=== PATIENT | female | born 1950 | race Caucasian/White ===

== ENCOUNTER → 2020-06-19 13:50 | Outpatient (REF) | payer MEDICARE, OTHER, SELFPAY ==
--- NOTE | 2020-06-19 14:00 | CA_ITS ---
Transthoracic Echocardiogram Patient (Last, First, Middle): Lucita Parekh A Gender: Female Date of : 1950 Age: 69 Procedure Date: 06/19/2020 Procedure Type: Transthoracic Echocardiogram Location: OP Height: 170.18 cm Weight: 104.33 kg BSA: 2.15 m2 Heart Rate: bpm BP: 128 / 88 mmHg Specification Writer: Referring MD: Brandt Correia MD Symptoms: I49.0 A-FIB Conclusions: - Normal left ventricular size, thickness, and systolic function. - E/E prime ratio is between 8 and 15 consistent with indeterminate filling pressures. - Normal right ventricular cavity size and systolic function. - There is mild dilatation of the ascending aorta. - No significant valvular or pericardial pathology. Findings Left Ventricle Normal left ventricular size, thickness, and systolic function. The visually estimated ejection fraction is between 55-60%. There is no evidence of regional wall motion abnormalities. Abnormal diastolic function is noted. Spectral Doppler is indicative of an impaired relaxation filling pattern. E/E prime ratio is between 8 and 15 consistent with indeterminate filling pressures. Right Ventricle Normal right ventricular cavity size and systolic function. Atria Both atria are normal in size. Aortic Valve Normal aortic valve structure and function. There is no aortic valve stenosis. There is no aortic valve regurgitation. Mitral Valve Normal mitral valve structure and function. There is no mitral valve regurgitation. There is no mitral valve stenosis. Pulmonic Valve The pulmonic valve is likely normal. Tricuspid Valve Normal tricuspid valve structure and function. There is trace tricuspid valve regurgitation. Normal right atrial pressure. There is no evidence of pulmonary hypertension. Great Vessels There is mild dilatation of the ascending aorta. The visualized portions of the pulmonary artery and branches are normal. Venous The inferior vena cava is normal in size and collapses greater than 50% with inspiration. Pericardium/Pleural There is no evidence of pericardial effusion. Prior Study Comparison No significant change compared to prior study dated: 02/11/2017. Measurements 2D Linear Measurements RVIDd: 2.97 RVIDd Index: 1.38 IVSd: 0.73 0.6-0.9/0.6-1.0 cm LVIDd: 5.23 3.9-5.3/4.2-5.9 cm LVIDd Index: 2.43 2.4-3.2/2.2-3.1 cm/m2 LVIDs: 3.46 2.0-3.6 cm LVPWd: 1.03 0.7-1.1 cm Ao Root: 3.40 2.1-3.5 cm LA Diam: 4.00 2.7-3.8/3.0-4.0 cm LAIDs Index: 1.86 1.5-2.3 cm/m2 LV Mass: 205.96 67-162/88-224 g LV Mass Index: 95.79 43-95/49-115 g/m2 LVOT Diam: 2.20 3.0+(-)1.3 cm 2D Systolic Function EF 4C: 44.00 >55% EF 2C: 58.00 >55% Mitral Valve MV Pk E: 0.51 MV PK A: 0.77 MV Decel Time: 327.00 E/A: 0.70 E'Lateral: 6.85 E'Medial: 5.44 E/E' Med: 9.40 E/E' Lat: 7.50 Aortic Valve AoV Pk Jac: 1.23 AoV Mn Jac: 0.91 AoV VTI: 0.26 AoV Pk Grad: 6.00 Aov Mn Grad: 4.00 MICH Cont.VTI: 2.44 LVOT LVOT Pk Jac: 0.90 LVOT Mn Jac: 0.59 LVOT VTI: 0.17 LVOT Pk Grad: 3.00 LVOT Mn Grad: 2.00 LVOT Diam: 2.20 LVOT Area: 3.80 Diastolic Function MV Pk E: 0.51 MV Pk A: 0.77 E/A: 0.70 E'Medial: 5.44 E/E' Med: 9.40 E' Laterial: 6.85 E/E' Lat: 7.50 Tricuspid Valve TR Pk Jac: 2.28 TR Pk Grad: 21.00 RA Press: 3.00 RVSP: 24.00 Great Vessels Aorta Ao Root-2D: 3.40 2.0-3.7 cm Ao Asc: 3.50 2.1-3.4 cm Ao Arch: 2.50 Updated in Other Vendor System with Status of Final Aung Lacy MD electronically signed on 06/21/2020 8:53:16 PM with status of Final
== END ==
LOC: HO.CARD 13:50
PROVIDERS: PCP Internal Medicine; Visit Provider Internal Medicine Cardiovascular Disease
DX: I48.0 Paroxysmal atrial fibrillation (principal)
CPT/HCPCS: 93306

== ENCOUNTER → 2020-08-05 10:10 | Outpatient (BNVA) | payer MEDICARE, OTHER, SELFPAY | PROVIDERS: PCP Internal Medicine; Referring Provider Internal Medicine; Visit Provider Nurse Practitioner Family | DX: I48.0 Paroxysmal atrial fibrillation (principal); R07.9 Chest pain, unspecified | CPT/HCPCS: 93005; 99212 ==

== ENCOUNTER → 2020-08-11 08:06 | Outpatient (REF) | payer MEDICARE, OTHER, SELFPAY ==
--- NOTE | 2020-08-11 | NM_ITS ---
Myocardial perfusion study Indication: Chest pain to evaluate for myocardial ischemia Technique: The patient was brought in for a Lexiscan perfusion study on 08/11/2020. Patient performed low-level exercise and was injected 0.4 mg of Lexiscan intravenously. Within a minute of injection, 45 mCi of sestamibi was given intravenously. Images were obtained using the SPECT gamma camera interlaced with the gating device. Images were obtained in supine position. Resting perfusion study was performed on 08/12/2020. Patient was administered 35 mCi of sestamibi intravenously at rest. Images were then obtained in supine position. Images obtained with and without CT attenuation. Total DLP 97 mGy-cm. Images were processed with the software and compared side to side in short axis, horizontal long axis and vertical long axis views. Findings: The stress perfusion study showed non attenuated images are suboptimal. As mildly reduced uptake in the anterior wall of the LV myocardium. Remainder of the LV myocardium is normally perfused. Attenuation corrected images show normal uptake of radiotracer in all segments of LV myocardium. The gated study shows normal LV systolic function with calculated LVEF of greater than 690%. LV cavity is normal size. The gated study shows normal systolic wall thickening and contraction of segments. Resting study shows attenuation corrected images show mildly reduced uptake in the apex of the LV myocardium.. Gating at rest reveals normal systolic wall motion with ejection fraction at 59%. The findings are consistent with likely normal myocardial perfusion. NM/NM giovanni perf SPECT rest & str Impression: 1. Myocardial perfusion imaging study shows likely normal myocardial perfusion 2. Gated LVEF is 59% 3. Transient ischemic dilatation not present EKG is nondiagnostic for ischemia
--- NOTE | 2020-08-11 08:15 | CA_ITS ---
Acquisition Time: 2020-08-11 08:19:15 Total Exercise Time: 00:02:00 Test Indications: Chest Pain Medications: CLONAZAPAM METOPROLOL HYDROXAZINE MELOXICAM GABAPENTIN PANTOPRAZOLE Protocol: LEXISCAN Max HR: 100 BPM 66% of Pred: 151 BPM Max BP: 118/072 mmHG Max Work Load: 1.0 METS Pharmacological stress test using Lexiscan while sitting and kicking her feet. Pt tolerated well, denies any anginal sx. EKG with isolated PVC, non-diagnostic for ischemia. Nuclear images to follow. Normotensive response to test. Test reviewed with Dr. Stock. Referred By: Ana Maria Zuñiga Overread By: Neelam Pichardo
== END ==
LOC: HO.CARD 08:06
PROVIDERS: PCP Internal Medicine; Visit Provider Nurse Practitioner Family
DX: R07.9 Chest pain, unspecified (principal); I48.0 Paroxysmal atrial fibrillation
CPT/HCPCS: 78452; 93017; A9500; J0280; J2785

== ENCOUNTER → 2020-09-09 11:49 | Outpatient (BNVA) | payer MEDICARE, OTHER, SELFPAY | PROVIDERS: PCP Internal Medicine; Visit Provider Nurse Practitioner Family | DX: Z13.89 Encounter for screening for other disorder (principal) | CPT/HCPCS: Q3014 ==

== ENCOUNTER 2020-11-19 17:00 | Outpatient (RCR) | payer MEDICARE, OTHER, SELFPAY | END 2020-11-27 10:32 | disposition other institution (70) | LOC: HO.PT 17:00 | PROVIDERS: PCP Internal Medicine; Visit Provider Physician Assistant | DX: M25.561 Pain in right knee (principal); M25.562 Pain in left knee | CPT/HCPCS: 97110; 97112; 97162 ==

== ENCOUNTER → 2020-12-16 12:44 | Outpatient (BNVA) | payer MEDICARE, OTHER, SELFPAY | PROVIDERS: PCP Internal Medicine; Visit Provider Nurse Practitioner Family | DX: R07.9 Chest pain, unspecified (principal); I48.0 Paroxysmal atrial fibrillation; F43.9 Reaction to severe stress, unspecified; Z79.899 Other long term (current) drug therapy | CPT/HCPCS: 99212 ==

== ENCOUNTER 2021-02-09 16:51 | Emergency (ER) | payer MEDICARE, OTHER, SELFPAY ==
--- NOTE | ~2021-02-09 | XR_ITS ---
EXAMINATION: XR RIBS, LEFT CLINICAL INFORMATION: Fall and injury COMPARISON: 03/22/2017 TECHNIQUE: Frontal view the chest and 3 views of the left ribs were obtained. FINDINGS: Lungs are hypoexpanded. There is mild thickening along the left lateral pleural space. On one oblique view there is a suggestion of a very subtle nondisplaced fracture of the lateral left fourth ribs as well as a possible subtle irregularity along the anterolateral left third rib. These appeared more normal on the prior study. Subtle nondisplaced left-sided rib fractures would be suspected. XR/XR ribs LT min 3V w CXR1V IMPRESSION: Subtle nondisplaced fractures of the left third and fourth ribs
[2021-02-09 16:55] VITALS: BP 124/68; PULSE 86; RESP 18; TEMP 36.8; O2SAT 100; BMI 37.6
--- NOTE | 2021-02-09 18:16 | ED_ITS ---
HPI - Fall General Chief Complaint: Fall Stated Complaint: fall Time Seen by Provider: 02/09/21 17:23 Source: patient Mode of arrival: ambulatory Limitations: no limitations History of Present Illness HPI Narrative: 70 year-old female here after a fall with left-sided chest discomfort. The patient tells me that she has had multiple falls last 3 weeks at home because she has 2 bad knees and they give out on her at times causing her to fall. She denies any head injury or loss of consciousness. She is not on any anticoagulation. She tells me that she has intermittent left-sided chest discomfort which is worsened with moving and deep breathing and she struck it when she fell on 1 of the occasions. Also complaining of depression.. Is the primary caregiver to her at home was recovering from COVID. No SI or HI.. Related Data Home Medications Medication Instructions Recorded Confirmed clonazepam 2 mg tablet 2 mg PO BID PRN 07/14/20 12/16/20 dextroamphetamine-amphetamine 15 1 tab PO BID 07/14/20 12/16/20 mg tablet gabapentin 300 mg capsule mg PO 07/14/20 12/16/20 hydroxyzine pamoate 25 mg capsule mg PO 07/14/20 12/16/20 meloxicam 7.5 mg tablet 7.5 mg PO DAILY 07/14/20 12/16/20 metoprolol succinate 50 mg 50 mg PO DAILY 07/14/20 12/16/20 tablet,extended release 24 hr pantoprazole 40 mg tablet,delayed 40 mg PO DAILY 07/14/20 12/16/20 release prazosin 2 mg capsule 2 mg PO BEDTIME 07/14/20 12/16/20 venlafaxine 75 mg capsule,extended 75 mg PO DAILY 07/14/20 12/16/20 release 24 hr Previous Rx's Medication Instructions Recorded lidocaine [Lidoderm] 1 patch TOPICAL DAILY #15 ea 02/09/21 oxycodone 5 mg PO Q6H PRN #10 tab 02/09/21 Allergies Allergy/AdvReac Type Severity Reaction Status Date / Time No Known Allergies Allergy Unverified 05/21/20 14:53 [No Known Allergies*] Review of Systems Review of Systems: Yes all other systems are reviewed and are negative Constitutional: Constitutional: Reports no additional constitutional complaints, Denies body ache(s), Denies chills, Denies fever(s), Denies headache(s) and Denies weakness Eyes: Eyes: Reports no additional eye complaints and Denies change in vision ENT: Reports system reviewed and no additional complaints, except as documented, Denies dizziness, Denies headache(s), Denies nasal congestion, Denies nasal discharge and Denies neck pain Cardiovascular: Cardiovascular: Reports no additional cardiovascular complaints, Reports chest pain, Denies leg edema and Denies dyspnea Respiratory: Respiratory: Reports no additional respiratory complaints, Denies cough and Denies dyspnea Gastrointestinal: Gastrointestinal: Reports no additional gastrointestinal complaints, Denies abdominal pain, Denies diarrhea, Denies nausea and Denies vomiting Genitourinary: Genitourinary: Reports no additional female genitourinary complaints and Denies urinary incontinence Musculoskeletal: Musculoskeletal: Reports no additional musculoskeletal complaints, Denies back pain, Denies arthralgias, Denies joint swelling, Denies neck pain, Denies numbness and Denies tingling Integumentary/Breasts: Skin/Breast: Reports system reviewed and no additional complaints, except as docu and Denies rash Neurologic: Reports system reviewed and no additional complaints, except as documented, Denies Abnormal speech present, Denies dizziness, Denies headache(s), Denies numbness, Denies tingling and Denies weakness PMFSH Past Medical History Attestation statement: The following information was validated with the patient. Source: old records reviewed and nursing notes reviewed Medical History Paroxysmal atrial fibrillation Surgical History Hx of appendectomy Hx of hysterectomy Family History Family History Father No problems noted. Mother No problems noted. Social History Social History Advance Directives: No Advance Directives Information Provided: No Physical Exam Vital Signs: Vital Signs: Last Vital Signs Temp 98.2 F 02/09/21 16:55 Pulse 86 02/09/21 16:55 Resp 18 02/09/21 16:55 BP 124/68 02/09/21 16:55 Pulse Ox 100 02/09/21 16:55 Body Mass Index 37.6 Const: General: cooperative, healthy appearing, comfortable and no acute distress Orientation/consciousness: patient oriented x3 Limitations: no l imitations HENMT: Head: Yes normal to inspection Ears: hearing grossly normal bilaterally General nose exam: Normal external nose present Face and sinus: Yes normal facial exam Mouth: Normal oral and palatal mucosa present Throat: Yes posterior oropharynx normal Eyes: General: appearance normal, both eyes and all related structures Pupils: Equal, round and reactive pupils present Neck: Neck: Yes normal visual inspection Chest: Other: Left-sided chest discomfort worsened with palpation. There is no obvious e ecchymosis or crepitus. Chest palpation & inspection: normal inspection of the chest and tenderness Resp: Effort & Inspection: normal respiratory effort Auscultation: clear to auscultation bilaterally Cardio: Rate: regular rate Rhythm: regular rhythm Peripheral pulses: Peripheral pulses 2+ throughout GI: Inspection: Yes normal to inspection Palpation (GI): Soft to palpation and nontender Auscultation: normal bowel sounds Back/Spine/Pelvis: Thoracic/Lumbar Spine: thoracic and lumbar spine normal to inspection Skin: General skin exam: no rashes or lesions noted Neuro: General: patient oriented x3, no focal motor deficits and normal sensation to monofilament Cranial nerves: Yes Equal, round and reactive pupils present Cognition (Neuro): normal cognition Speech: No Abnormal speech present Gait exam (Neuro): Normal gait present Motor exam (neuro): 5/5 motor strength present throughout Extrem: General: Yes normal to inspection Course Course Course Narrative: 70-year-old female here with left-sided chest discomfort after a fall. Patient tells me she has multiple falls which are secondary to her knees giving out. No head injury or loss of consciousness. No anticoagulation. Also complaining of depression. Will check rib x-ray and have a care team come and discussed with the patient. 2019-rib x-ray shows 2 nondisplaced rib fractures. Patient is pending care team input. 2029-patient was seen by care team and cleared for discharge home. No suicidal homicidal ideations. She does have a outpatient provider and therapy in place. Patient was given incentive spirometer by respiratory therapy. She was medicated for pain with improvement of symptoms. I did offer for case management to come and see the patient but she tells me that she knows she has bilateral knee pain from her arthritis. She tells me she has broken her primary care doctor and plans to restart physical therapy. She does not feel like she needs to speak to case management or have any placement done. Reviewed worrisome signs and symptoms and when to return to the emergency department. Comfortable discharge home. MDM - Fall MDM Narrative Medical decision making narrative: Contusion, fracture Medical Records Attestation: I reviewed the patient's medical records. Lab Data Attestation: I reviewed the patient's lab results. Imaging Data rib xray: Attestation: I personally reviewed and interpreted this imaging study as follows: Radiologist's impression: EXAMINATION: XR RIBS, LEFT CLINICAL INFORMATION: Fall and injury COMPARISON: 03/22/2017 TECHNIQUE: Frontal view the chest and 3 views of the left ribs were obtained. FINDINGS: Lungs are hypoexpanded. There is mild thickening along the left lateral pleural space. On one oblique view there is a suggestion of a very subtle nondisplaced fracture of the lateral left fourth ribs as well as a possible subtle irregularity along the anterolateral left third rib. These appeared more normal on the prior study. Subtle nondisplaced left-sided rib fractures would be suspected. XR/XR ribs LT min 3V w CXR1V IMPRESSION: Subtle nondisplaced fractures of the left third and fourth ribs Discharge Plan Discharge Clinical Impression: Closed rib fracture, Depression Patient Disposition: Home, Self-Care Instructions: Rib Fracture (ED), Depression (ED) Additional Instructions: You have 2 small rib fractures Ice the area Follow-up with primary care doctor Prescriptions: New oxycodone 5 mg tablet 5 mg PO Q6H PRN (Reason: pain) Qty: 10 RF: 0 lidocaine [Lidoderm] 5 % adhesive patch,medicated 1 patch topical DAILY Qty: 15 RF: 0 No Action hydroxyzine pamoate 25 mg capsule PO RF: 0 prazosin 2 mg capsule 2 mg PO BEDTIME RF: 0 clonazepam 2 mg tablet 2 mg PO BID PRNRF: 0 venlafaxine 75 mg capsule,extended release 24hr 75 mg PO DAILY RF: 0 gabapentin 300 mg capsule PO RF: 0 meloxicam 7.5 mg tablet 7.5 mg PO DAILY RF: 0 pantoprazole 40 mg tablet,delayed release (DR/EC) 40 mg PO DAILY RF: 0 dextroamphetamine-amphetamine 15 mg tablet 1 tab PO BID RF: 0 metoprolol succinate 50 mg tablet extended release 24 hr 50 mg PO DAILY RF: 0 Referrals: Physician,None [Primary Care Provider] - 2 days
--- NOTE | 2021-02-09 19:04 | PC.NURSE ---
pt has been in low fowlers position speaking in full clear sentences with no accessory muscle use noted. pt reports tederness to her L brest and states it is tender. no other dcap-btls noted. pt initally declined aldo medications but later requests. pt stattes she is the primary caregiver of her and states she does not feel she can care for him anymore, pt is distressed by this admission. socail work eval has been ordered
[2021-02-09] MEDS: oxyCODONE HCl Immed Release 5 MG TABLET PO (20:59)
[2021-02-09] MEDS: Ketorolac Tromethamine 60 MG/2 ML VIAL IM (21:00)
[2021-02-09 21:14] VITALS: BP 158/70; PULSE 63; RESP 18; TEMP 36.8; O2SAT 97
--- NOTE | 2021-02-09 21:54 | MHC.CARE ---
Addendum entered by Lani Lobo LCSW 02/09/21 22:12: [place] noting-- denied SI several times, declined referrals and resources due to being well resourced with regards to her mental health at this time. Original Note: CARE team consult requested for 70 year old female who was brought to ED via private vehicle secondary to a fall at home. During the visit, pt expressed that she has been struggling with depressed mood in the context of stress related to cohabiting with her partner of 25 years, who has experienced significant medical challenges and changes in his emotional/behavioral presentation since he was hospitalized with covid-19 last Spring. Pt shared that she is beyond compassion fatigue at this point, noting that she has arrived to the point of not caring, describing herself as being angry and a [id number] machine (referencing her increased use of the word in conversation, pt spelled the word as opposed to saying it). Pt shared that her partner was compassionate and caring prior to his covid diagnosis and treatment, which resulted in pt being admitted to ICU for 5 weeks, spending 3 of those weeks on a ventilator, and pt believes that he was traumatized by this experience, as well as another medical trauma event that occurred shortly after, which may be a contributing factor to the reported changes that have left pt feeling that she has nothing left to give for him. Pt reported that a nurse practitioner from [employer] visited the home yesterday and made recommendations that her partner be referred for a PT/OT eval and a neurology consultation/evaluation, which pt doesn't feel that he will follow up or be compliant with. 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 Five years ago, pt reported that she bought a condo and moved out of their home, thus ending their romantic relationship. This however resulted in a tremendous downswing with pt's mood and overall functioning, becoming increasingly isolated, leading to increased alcohol use and ultimately a significant suicide attempt, which was followed by one year of intensive mental health treatment including psych admissions, ECT, TMS, and PHP. Pt has been in treatment with outpatient providers and the DBT program through [facility] for the past 3 years and feels that she is well supported in that aspect. Pt expressed that she has felt socially isolated over the past year, as her closest friends disconnected from pt after her partner was diagnosed with covid, likely out of the now-irrational fear of the infection, of which little was known at that time. She has also felt that her family has been distant, sharing that her sister suffered a significant mental health episode just prior to the covid pandemic. Resulting from today's fall, pt fractured a number of her ribs and will need several weeks of recovery time. Pt shared that she had a goal of buying and preparing a teardrop camper/trailer by this June so that she would be able to do the traveling she intended to do after half-way, however is left feeling that her present medical challenges have compromised this. CARE team consulted briefly with Case Management re: what was discussed with pt and a brief explanation of the current concerns with regards to pt's ability to care for herself and her partner while she is in medical recovery.
== END 2021-02-09 21:28 | disposition home or self-care (01) ==
PROVIDERS: Emergency Provider Internal Medicine
DX: S22.42XA Multiple fractures of ribs, left side, initial encounter for closed fracture (principal); W17.89XA Other fall from one level to another, initial encounter; F32.9 Major depressive disorder, single episode, unspecified; I48.0 Paroxysmal atrial fibrillation; Z91.81 History of falling; Y93.89 Activity, other specified; Y92.019 Unspecified place in single-family (private) house as the place of occurrence of the external cause; Y99.9 Unspecified external cause status
CPT/HCPCS: 71101; 96372; 99284; J1885

== ENCOUNTER 2021-02-12 13:57 | Outpatient (RCR) | payer MEDICARE, OTHER, SELFPAY | END 2021-07-07 15:25 | disposition home or self-care (01) | LOC: HO.PT 13:57 | PROVIDERS: PCP Internal Medicine; Visit Provider Physician Assistant | DX: M25.562 Pain in left knee (principal); M25.561 Pain in right knee | CPT/HCPCS: 97110; 97116; 97162 ==

== ENCOUNTER 2021-02-25 16:58 | Emergency (ER) | payer MEDICARE, OTHER, SELFPAY ==
--- NOTE | ~2021-02-25 | XR_ITS ---
EXAMINATION: LEFT WRIST CLINICAL INFORMATION: Injury. Pain. COMPARISON: None TECHNIQUE: 4 views FINDINGS: There is osteopenia. Suspect the presence of a nondisplaced fracture of the metadiaphysis of the distal radius. Subtle cortical irregularity seen on lateral view. Faint radiolucent fracture line seen on the coned down navicular view through the metadiaphysis of the distal radius. There is no dislocation. There is marked degenerative change between the navicular and multangular bones of the wrist. XR/XR wrist LT w scaphoid IMPRESSION: Suspect nondisplaced transverse fracture of the distal radius at the metadiaphysis. CT would be helpful for further evaluation.
[2021-02-25 17:09] VITALS: BP 127/75; BP 165/100; PULSE 66; RESP 20; TEMP 36.3; O2SAT 96; O2SAT 98; BMI 38.0
[2021-02-25 17:20] VITALS: BP 127/75; PULSE 66; RESP 20; TEMP 36.3; O2SAT 96
--- NOTE | 2021-02-25 17:21 | ED.FALL ---
HPI - Fall General Chief Complaint: Fall Stated Complaint: left wrist pain Time Seen by Provider: 02/25/21 17:21 History of Present Illness HPI Narrative: Patient complains of left wrist pain after falling backwards while gardening, no fainting no syncope no feeling faint no numbness weakness or tingling no head injury no headache no neck pain no back pain Related Data Home Medications Medication Instructions Recorded Confirmed clonazepam 2 mg tablet 2 mg PO BID PRN 07/14/20 12/16/20 dextroamphetamine-amphetamine 15 1 tab PO BID 07/14/20 12/16/20 mg tablet gabapentin 300 mg capsule mg PO 07/14/20 12/16/20 hydroxyzine pamoate 25 mg capsule mg PO 07/14/20 12/16/20 meloxicam 7.5 mg tablet 7.5 mg PO DAILY 07/14/20 12/16/20 metoprolol succinate 50 mg 50 mg PO DAILY 07/14/20 12/16/20 tablet,extended release 24 hr pantoprazole 40 mg tablet,delayed 40 mg PO DAILY 07/14/20 12/16/20 release prazosin 2 mg capsule 2 mg PO BEDTIME 07/14/20 12/16/20 venlafaxine 75 mg capsule,extended 75 mg PO DAILY 07/14/20 12/16/20 release 24 hr Previous Rx's Medication Instructions Recorded lidocaine [Lidoderm] 1 patch TOPICAL DAILY #15 ea 02/09/21 oxycodone 5 mg PO Q6H PRN #10 tab 02/09/21 hydrocodone-acetaminophen 1 tab PO Q6H PRN #10 tab 02/25/21 Allergies Allergy/AdvReac Type Severity Reaction Status Date / Time No Known Allergies Allergy Verified 03/04/21 08:50 [No Known Allergies*] Review of Systems Review of Systems: positive for left wrist pain Negatives are no dizziness no weakness no fainting no feeling pain no neck pain no back pain no numbness weakness or tingling no other extremity pains Yes all other systems are reviewed and are negative PMF Past Medical History Source: nursing notes reviewed Medical History Paroxysmal atrial fibrillation Surgical History Hx of appendectomy Hx of hysterectomy Family History Family History Father No problems noted. Mother No problems noted. Social History Social History (Updated 03/04/21 @ 08:52 by Ilya Herrera) Patient Tobacco Use Status: Never used Tobacco Current occupational status: retired Current occupation: rt handed Physical Exam Vital Signs: Vital Signs: Last Vital Signs Temp 97.4 F 02/25/21 17:20 Pulse 66 02/25/21 17:20 Resp 20 02/25/21 17:20 BP 127/75 02/25/21 17:20 Pulse Ox 96 02/25/21 17:20 Body Mass Index 38.0 general appearance no acute distress Head is normocephalic atraumatic Neck is supple and nontender Respiratory no distress Extremities the left wrist had tenderness and swelling no obvious deformity, there was pain with flexion and extension and it was neurovascularly intact distal with normal tendon function in the fingers on both extension and flexion, there was no open wound Course Course Course Narrative: x-ray showed a nondisplaced fracture of the distal radius and the tech applied a volar splint neurovascularly intact afterwards and patient will follow with orthopedics Discharge Plan Discharge Clinical Impression: Fracture of left wrist Patient Disposition: Home, Self-Care Additional Instructions: X-ray showed a nondisplaced wrist fracture and we applied a splint Wear the splint Use either Tylenol or Vicodin for pain killer, Vicodin does contain Tylenol Follow with orthopedist next week Return any concerns Prescriptions: New hydrocodone-acetaminophen 5-325 mg tablet 1 tab PO Q6H PRN (Reason: pain) Qty: 10 RF: 0 No Action oxycodone 5 mg tablet 5 mg PO Q6H PRN (Reason: pain) Qty: 10 RF: 0 lidocaine [Lidoderm] 5 % adhesive patch,medicated 1 patch topical DAILY Qty: 15 RF: 0 hydroxyzine pamoate 25 mg capsule PO RF: 0 prazosin 2 mg capsule 2 mg PO BEDTIME RF: 0 clonazepam 2 mg tablet 2 mg PO BID PRNRF: 0 venlafaxine 75 mg capsule,extended release 24hr 75 mg PO DAILY RF: 0 gabapentin 300 mg capsule PO RF: 0 meloxicam 7.5 mg tablet 7.5 mg PO DAILY RF: 0 pantoprazole 40 mg tablet,delayed release (DR/EC) 40 mg PO DAILY RF: 0 dextroamphetamine-amphetamine 15 mg tablet 1 tab PO BID RF: 0 metoprolol succinate 50 mg tablet extended release 24 hr 50 mg PO DAILY RF: 0 Referrals: Mayi Randhawa MD [Physician] - 2 days (Left wrist fracture) Interventions: ED Discharge Assessment Last Done: 02/25/21 20:48 Discharge Date/Time: 02/25/21 20:49
--- NOTE | 2021-02-25 17:25 | PC.NURSE ---
Addendum entered by Kristin Carranza RN 02/25/21 17:50: +[facility] Original Note: Pt alert. oriented, vss. Pt states while gardening this afternoon she tripped and lost her balance causing her to fall. She states she used her left arm to break her fall ending up landing on her L wrist. She denies hitting head, no LOC, dizziness, or lightheadedness. Pt reports she is supposed to use walker to ambulate but was not using it at the time of fall. An iv line was established by ems, 50mcg of Fentanyl given via iv and L arm stabilized. Pt awaiting xray, no apparent distress
[2021-02-25] MEDS: Morphine Sulfate 4 MG/ML CARTRIDGE IVPUSH (17:42)
--- NOTE | 2021-02-25 19:13 | PC.NURSE ---
This PCT placed a thumb Spica splint on the patients left forearm, patient tolerated well
== END 2021-02-25 20:49 | disposition home or self-care (01) ==
PROVIDERS: Emergency Provider Emergency Medicine; PCP Internal Medicine
DX: S52.502A Unspecified fracture of the lower end of left radius, initial encounter for closed fracture (principal); W18.30XA Fall on same level, unspecified, initial encounter; Y93.H2 Activity, gardening and landscaping; Y92.89 Other specified places as the place of occurrence of the external cause; Y99.9 Unspecified external cause status
CPT/HCPCS: 29125; 73110; 96374; 99284; J2270

== ENCOUNTER 2021-03-04 08:01 | Outpatient (REF) | payer MEDICARE, OTHER, SELFPAY ==
--- NOTE | ~2021-03-04 | XR_ITS ---
EXAMINATION: XR WRIST, LEFT CLINICAL INFORMATION: Left wrist pain. COMPARISON: Radiographs dated 02/25/2021 and 03/22/2017. TECHNIQUE: PA, lateral, and oblique views of the left wrist. FINDINGS: There is bony demineralization. Fine bony detail is limited laterally secondary to the application of a splint. A tiny fracture is again suspected at the dorsal aspect of the distal left radial metaphysis on the lateral view. There is no dislocation. Again, there are is degenerative change of the triscaphe and first carpometacarpal carpometacarpal joints. No soft tissue gas or foreign body is seen. XR/XR wrist LT min 3V IMPRESSION: A small fracture fragment is again suspected at the dorsal aspect of the distal left radius on the lateral view comment is stable alignment.
== END 2021-03-04 08:02 | disposition home or self-care (01) ==
LOC: HO.XRAY 08:01
PROVIDERS: PCP Internal Medicine; Visit Provider Physician Assistant
DX: S52.502A Unspecified fracture of the lower end of left radius, initial encounter for closed fracture (principal)
CPT/HCPCS: 25600; 73110; 99202

== ENCOUNTER 2021-03-25 08:07 | Outpatient (REF) | payer MEDICARE, OTHER, SELFPAY ==
--- NOTE | ~2021-03-25 | XR_ITS ---
EXAMINATION: XR WRIST, LEFT XR WRIST, RIGHT CLINICAL INFORMATION: Pain COMPARISON: None TECHNIQUE: 3 views of each wrist FINDINGS: Left wrist: Osteopenia. No fracture or dislocation. The carpal rows are well aligned. Moderate degenerative changes of the triscaphe joint with joint space narrowing and sclerosis. Mild degenerative change of the first carpometacarpal joint with narrowing and osteophyte. The soft tissues are unremarkable. Right wrist: No fracture or dislocation. The carpal rows are well aligned. Severe degenerative change of the triscaphe joint with narrowing, sclerosis, and osteophyte formation. Mild degenerative change of the first carpometacarpal joint with osteophyte formation. Subchondral cyst formation in the lunate. The soft tissues are unremarkable. XR/XR wrist RT min 3V IMPRESSION: Degenerative changes of both wrists, greatest at the triscaphe joint.
--- NOTE | ~2021-03-25 | XR_ITS ---
EXAMINATION: XR WRIST, LEFT XR WRIST, RIGHT CLINICAL INFORMATION: Pain COMPARISON: None TECHNIQUE: 3 views of each wrist FINDINGS: Left wrist: Osteopenia. No fracture or dislocation. The carpal rows are well aligned. Moderate degenerative changes of the triscaphe joint with joint space narrowing and sclerosis. Mild degenerative change of the first carpometacarpal joint with narrowing and osteophyte. The soft tissues are unremarkable. Right wrist: No fracture or dislocation. The carpal rows are well aligned. Severe degenerative change of the triscaphe joint with narrowing, sclerosis, and osteophyte formation. Mild degenerative change of the first carpometacarpal joint with osteophyte formation. Subchondral cyst formation in the lunate. The soft tissues are unremarkable. XR/XR wrist LT min 3V IMPRESSION: Degenerative changes of both wrists, greatest at the triscaphe joint.
== END 2021-03-25 08:08 | disposition home or self-care (01) ==
LOC: HO.HOSX 08:07
PROVIDERS: Visit Provider Physician Assistant
DX: S52.502D Unspecified fracture of the lower end of left radius, subsequent encounter for closed fracture with routine healing (principal); M25.532 Pain in left wrist; M25.531 Pain in right wrist; M18.11 Unilateral primary osteoarthritis of first carpometacarpal joint, right hand; M18.12 Unilateral primary osteoarthritis of first carpometacarpal joint, left hand
CPT/HCPCS: 29085; 73110; 99212

== ENCOUNTER 2021-04-15 05:56 | Outpatient (REF) | payer MEDICARE, OTHER, SELFPAY ==
--- NOTE | ~2021-04-15 | XR_ITS ---
EXAMINATION: XR WRIST, LEFT CLINICAL INFORMATION: Left wrist pain. COMPARISON: Left wrist radiographs dated 03/25/2021. TECHNIQUE: PA, lateral, and oblique views of the left wrist. FINDINGS: No acute fracture or dislocation. Osteopenia is redemonstrated. Joint space narrowing with subchondral sclerosis and marginal osteophytes at the triscaphe, 1st carpometacarpal, and 1st metacarpophalangeal joints. Findings are similar when compared to the prior radiographs. No new osseous erosion. No abnormal soft tissue calcification. XR/XR wrist LT min 3V IMPRESSION: Degenerative arthritis redemonstrated at the triscaphe, 1st carpal metacarpal, and 1st metacarpophalangeal joints, similar when compared to the prior examination.
== END 2021-04-15 05:57 | disposition home or self-care (01) ==
LOC: HO.HOSX 05:56
PROVIDERS: Visit Provider Physician Assistant
DX: M18.12 Unilateral primary osteoarthritis of first carpometacarpal joint, left hand (principal); S52.502D Unspecified fracture of the lower end of left radius, subsequent encounter for closed fracture with routine healing
CPT/HCPCS: 73110; 99212

== ENCOUNTER 2021-05-27 08:50 | Outpatient (REF) | payer MEDICARE, OTHER, SELFPAY ==
--- NOTE | ~2021-05-27 | XR_ITS ---
EXAMINATION: XR WRIST, LEFT CLINICAL INFORMATION: Pain in left wrist COMPARISON: Radiographs of the left wrist 04/15/2021 TECHNIQUE: PA, lateral, and oblique views of the left wrist. FINDINGS: The bones are diffusely osteopenic. Redemonstration of degenerative changes of the triscaphe, first carpometacarpal and first metacarpophalangeal joints which are overall similar to the prior study. No new acute bony abnormality is identified. There is no fracture. There is questionable minimal edema of the soft tissues adjacent to the ulnar styloid, though this is likely projectional. Soft tissues are otherwise unremarkable. XR/XR wrist LT min 3V IMPRESSION: Essentially stable appearance of degenerative arthritic changes of the left wrist without acute interval change.
== END 2021-05-27 08:51 | disposition home or self-care (01) ==
LOC: HO.HOSX 08:50
PROVIDERS: Visit Provider Physician Assistant
DX: S52.502D Unspecified fracture of the lower end of left radius, subsequent encounter for closed fracture with routine healing (principal); M65.4 Radial styloid tenosynovitis [de Quervain]
CPT/HCPCS: 20550; 73110; 99212; J1020

== ENCOUNTER 2021-07-08 14:43 | Outpatient (REF) | payer MEDICARE, OTHER, SELFPAY ==
--- NOTE | ~2021-07-08 | XR_ITS ---
EXAMINATION: XR WRIST, LEFT CLINICAL INFORMATION: Fracture. COMPARISON: 05/27/2021 TECHNIQUE: Four views of the left wrist. FINDINGS: Osteopenia. The carpal rows are well aligned. Severe arthritic changes at the triscaphe joint with narrowing and sclerosis. Moderate degenerative change of the first carpometacarpal joint. The soft tissues appear unremarkable. XR/XR wrist LT min 3V IMPRESSION: Similar appearance to prior with severe arthritic changes at the triscaphe joint.
== END 2021-07-08 14:44 | disposition home or self-care (01) ==
LOC: HO.HOSX 14:43
PROVIDERS: Visit Provider Physician Assistant
DX: M65.4 Radial styloid tenosynovitis [de Quervain] (principal); S52.502D Unspecified fracture of the lower end of left radius, subsequent encounter for closed fracture with routine healing
CPT/HCPCS: 73110; 99212

== ENCOUNTER 2021-07-19 11:50 | Outpatient (REF) | payer MEDICARE, OTHER, SELFPAY ==
--- NOTE | ~2021-07-19 | XR_ITS ---
EXAMINATION: KNEE X-RAY CLINICAL INFORMATION: Pain COMPARISON: None TECHNIQUE: Standing AP, lateral and sunrise view of both knees FINDINGS: Right: Bone alignment is normal. No fracture or dislocation is seen. There is tricompartment arthritis. There is a small joint effusion. Left: Bone alignment is normal. No fracture or dislocation is seen. There is arthritis at the medial femoral tibial and patellofemoral joints. There is no joint effusion. XR/XR knee standing BI IMPRESSION: Bilateral arthritis, right greater than left.
--- NOTE | ~2021-07-19 | XR_ITS ---
EXAMINATION: KNEE X-RAY CLINICAL INFORMATION: Pain COMPARISON: None TECHNIQUE: Standing AP, lateral and sunrise view of both knees FINDINGS: Right: Bone alignment is normal. No fracture or dislocation is seen. There is tricompartment arthritis. There is a small joint effusion. Left: Bone alignment is normal. No fracture or dislocation is seen. There is arthritis at the medial femoral tibial and patellofemoral joints. There is no joint effusion. XR/XR knee RT 2V IMPRESSION: Bilateral arthritis, right greater than left.
--- NOTE | ~2021-07-19 | XR_ITS ---
EXAMINATION: KNEE X-RAY CLINICAL INFORMATION: Pain COMPARISON: None TECHNIQUE: Standing AP, lateral and sunrise view of both knees FINDINGS: Right: Bone alignment is normal. No fracture or dislocation is seen. There is tricompartment arthritis. There is a small joint effusion. Left: Bone alignment is normal. No fracture or dislocation is seen. There is arthritis at the medial femoral tibial and patellofemoral joints. There is no joint effusion. XR/XR knee LT 2V IMPRESSION: Bilateral arthritis, right greater than left.
== END 2021-07-19 11:51 | disposition home or self-care (01) ==
LOC: HO.HOSX 11:50
PROVIDERS: Visit Provider Orthopaedic Surgery
DX: M17.11 Unilateral primary osteoarthritis, right knee (principal)
CPT/HCPCS: 73560; 73565; 99202

== ENCOUNTER → 2021-08-09 13:53 | Outpatient (BNVA) | payer MEDICARE, OTHER, SELFPAY | PROVIDERS: PCP Internal Medicine; Referring Provider Internal Medicine; Visit Provider Internal Medicine Cardiovascular Disease | DX: Z01.810 Encounter for preprocedural cardiovascular examination (principal); I48.0 Paroxysmal atrial fibrillation | CPT/HCPCS: 93005; 99212 ==

== ENCOUNTER → 2021-10-05 10:54 | Outpatient (BNVA) | payer MEDICARE, OTHER, SELFPAY | PROVIDERS: Visit Provider Orthopaedic Surgery | DX: Z13.89 Encounter for screening for other disorder (principal) ==

== ENCOUNTER 2021-10-05 12:27 | Outpatient (REF) | payer MEDICARE, OTHER, SELFPAY ==
[2021-10-05 13:51] LABS: MANUAL DIFF FLAG NO
[2021-10-05 13:57] LABS: Basophils Absolute Auto 0.1 X10*3/uL (0.0-0.2); Basophils Percent Auto 0.5 % (0-2); Eosinophils Absolute Auto 0.2 X10*3/uL (0.0-0.4); Eosinophils Percent Auto 1.6 % (0-4); Hematocrit 43.7 % (37.0-47.0); Hemoglobin 13.9 g/dl (12.0-16.0); Imm Gran Abs Auto 0.05 X10*3/uL (0.00-0.03); Imm Gran Pct Auto 0.5 % (0.0-0.4); Lymphocytes Absolute Auto 3.3 X10*3/uL (1.2-4.9); Lymphocytes Percent Auto 33.9 % (20-40); Mean Corpuscular HGB Conc 31.8 g/dl (31.0-35.0); Mean Corpuscular Hemoglobin 29.8 pg (27.0-33.0); Mean Corpuscular Volume 93.8 fL (80.0-98.0); Mean Platelet Volume 9.9 fL (9.4-12.3); Monocytes Absolute Auto 0.8 X10*3/uL (0.1-1.2); Monocytes Percent Auto 8.5 % (2-11); Neutrophils Absolute Auto 5.4 x10*3/uL (2.0-8.3); Platelet Count 311 X10*3/uL (160-400); Red Blood Count 4.66 X10*6/uL (4.20-5.50); Red Cell Distribution Width 12.4 % (11.0-16.0); White Blood Count 9.8 X10*3/uL (4.8-10.8)
[2021-10-05 14:22] LABS: Anion Gap 9 (12-20); Blood Urea Nitrogen 26 mg/dL (9-16); Calcium 9.8 mg/dL (8.4-10.2); Carbon Dioxide 30 mmol/L (22-29); Chloride 106 mmol/L (96-108); Estimated Glomerular Filt Rate > 60; Glucose Random 86 mg/dL (60-115); Potassium 4.7 mmol/L (3.3-5.1); Sodium 140 mmol/L (135-145)
== END 2021-10-05 12:28 | disposition home or self-care (01) ==
LOC: HO.10HDL 12:27
PROVIDERS: Visit Provider Orthopaedic Surgery
DX: Z01.812 Encounter for preprocedural laboratory examination (principal)
CPT/HCPCS: 36415; 80048; 85025

== ENCOUNTER → 2021-10-07 09:14 | Outpatient (REF) | payer MEDICARE, OTHER, SELFPAY ==
--- NOTE | ~2021-10-07 | NM_ITS ---
Myocardial perfusion study Indication: Chest pain to evaluate for myocardial ischemia Technique: The patient was brought in for a Lexiscan perfusion study on 10/07/2021. Patient performed low-level exercise and was injected 0.4 mg of Lexiscan intravenously. Within a minute of injection, 40 mCi of sestamibi was given intravenously. Images were obtained using the SPECT gamma camera interlaced with the gating device. Images were obtained in supine position. Resting perfusion study was performed on 10/11/2021. Patient was administered 40 mCi of sestamibi intravenously at rest. Images were then obtained in supine position. Images obtained with and without CT attenuation. Total DLP 153 mGy-cm. Images were processed with the software and compared side to side in short axis, horizontal long axis and vertical long axis views. Findings: There was interference due to intense subdiaphragmatic uptake both on rest and stress perfusion study The stress perfusion study showed normal uptake of radiotracer in all segments of LV myocardium both on attenuated as well as non attenuated images. The gated study shows normal LV systolic function with visually estimated LVEF of greater than 60%. LV cavity is normal in size. The gated study shows normal systolic wall thickening and contraction of segments. Resting study shows normal uptake of radiotracer in all segments of LV myocardium on non attenuated images. Gating at rest reveals normal systolic wall motion with visually estimated ejection fraction at greater than 60%. The findings are consistent with normal myocardial perfusion. NM/NM giovanni perf SPECT rest & str Impression: 1. Myocardial perfusion imaging study shows normal myocardial perfusion 2. Gated LVEF is greater than 60% 3. Transient ischemic dilatation not present EKG is nondiagnostic for ischemia
--- NOTE | 2021-10-07 09:24 | CA_ITS ---
Acquisition Time: 2021-10-07 09:30:20 Total Exercise Time: 00:02:00 Test Indications: ABN EKG, AFIB Medications: SEE CHART Protocol: LEXISCAN Max HR: 096 BPM 64% of Pred: 150 BPM Max BP: 130/078 mmHG Max Work Load: 1.0 METS Pharmacological stress test with Lexiscan injection, while sitting and moving right arm, without anginal symptoms, without arrythmia, with normotensive response to injection, with nondiagnostic EKG for ischemia. In recovery she reported Lightheadedness that was treated with Aminophylline 75mg IV to reverse Lexiscan with resolution of symptom. Nuclear images pending. Test reviewed with Dr Stock. Referred By: Brandt Correia Overread By: GÉNESIS EATON
== END ==
LOC: HO.CARD 09:14
PROVIDERS: Visit Provider Internal Medicine Cardiovascular Disease
DX: R07.9 Chest pain, unspecified (principal)
CPT/HCPCS: 78452; 93017; A9500; J0280; J2785

== ENCOUNTER → 2021-10-28 11:13 | Outpatient (BNVA) | payer MEDICARE, OTHER, SELFPAY | PROVIDERS: Visit Provider Physician Assistant | DX: Z01.818 Encounter for other preprocedural examination (principal); M17.11 Unilateral primary osteoarthritis, right knee | CPT/HCPCS: 99212 ==

== ENCOUNTER 2021-11-01 14:00 | Outpatient (RCR) | payer MEDICARE, OTHER, SELFPAY ==
--- NOTE | 2021-10-13 15:30 | MHC.PT.EP ---
[facility] [place] Office [place] Office [place] Office [address] Nicki Ibarra [address] [phone] F: [phone] F: [phone] F: [phone] F: [phone] Physical Therapy Plan of Care Date of Evaluation: Date of Surgery: n/a Diagnosis: Prehab for TKA Assessment: Patient is a 70 year old female presenting to PT for prehab prior to R TKA scheduled for November 02, 2021. She presents today with impairments in pain, knee ROM, knee strength, and hip strength. Pt's current occupation is none, with baseline physical activities including ADLs, ambulation, and stair negotiation. Pt expresses detention goal of preparing for surgery, and is motivated to work towards this in PT. Clinical presentation today is most consistent with signs and sx associated with R knee OA and pt will benefit from skilled PT to address the following problems and impairments noted upon evaluation: pain, knee ROM, knee strength, and hip strength. These problems limit the patient with the following functional activities: ADLs, ambulation, and stair negotiation. The prescribed treatment plan of care is medically necessary. Co-morbidities of afib and psych history (pt often crying during evaluation without provocative factor, pt also tangential at times and needing redirection during evaluation) were identified and taken into considerations of plan of care. Pt was educated on HEP, role of PT, prognosis, POC, heel propping for after surgery. Extensive discussion on pain and rehab process - pt became tearful again stating she needs a assistant men's soccer coach after surgery and she doesn't have one so is unsure how she will know when to do her exercises. Further discussion had regarding responsibility and accountability when it comes to completing exercises and her role in her own rehab and pt with some hesitation with this idea. Frequency and Duration: The patient will be seen 2 x week x 3 weeks Short Term Goals: Pt will demonstrate compliance with HEP in 2 sessions. Pt will demonstrate proper use of cane and sequencing when ambulating in 2 sessions. [employer] Goals: Pt will demonstrate improved knee strength by 1/3 MMT in 3 weeks to maximize post op outcomes. Pt will demonstrate improved hip strength by 1/3 MMT for improved lumbopelvic stability in 3 weeks. Treatment Plan: Modalities to reduce pain, spasms and effusion. Manual therapy to restore motion and function. Therapeutic exercise to improve strength and flexibility. Neuromuscular re-education for posture and balance. Therapeutic activities to return to functional activities of daily living. Electronically signed by: Sparkle Henson, PT, DPT, ATC Please sign and return to therapist. Thank you for your referral.
--- NOTE | 2021-11-01 14:58 | MHC.PT.DC ---
[facility] [place] Office [place] Office [place] Office [address] Nicki Ibarra 140 [facility] [phone] F: [phone] F: [phone] F: [phone] F: [phone] Physical Therapy Discharge Report Diagnosis: Prehab for TKA Date of Surgery: n/a Date of Evaluation: 10/13/21 Date of Discharge: 11/01/21 Treatments to Date: 5 Cancellations to Date: 1 No Shows to Date: 0 Discharge Status: Discharge Summary: Pt is scheduled for R TKA tomorrow. She has been attending prehab and working on strengthening to maximize post op outcomes. She states she is compliant with her exercises at home most of the time. She has made some gains in knee strength but still is demonstrating impaired hip strength. At this time skilled PT is no longer indicated as she is scheduled for a TKA tomorrow. She will benefit from skilled PT after her surgery. Electronically signed by: Sparkle Henson, PT, DPT, ATC Please sign and return to therapist. Thank you for your referral.
== END 2021-11-01 14:58 | disposition home or self-care (01) ==
LOC: HO.PTCHIC 14:00
PROVIDERS: PCP Internal Medicine; Visit Provider Orthopaedic Surgery
DX: M17.11 Unilateral primary osteoarthritis, right knee (principal)
CPT/HCPCS: 97110; 97161; 97162

== ENCOUNTER 2021-11-02 07:20 | Inpatient (IN) | payer MEDICARE, OTHER, SELFPAY ==
[2021-10-21 12:05] VITALS: BP 131/76; PULSE 91; RESP 16; O2SAT 96; BMI 39.9
--- NOTE | 2021-10-21 12:37 | HO.ANESPROP2 ---
Documented by User: Lani Waldrop NP 11/01/21 09:19 HPI - Anesthesia Eval Consult details Narrative: 70yo F for Left Knee Replacement Total Cardiac optimized per Dr Bren Harrell, no anticoag PMFSH Active Problems Active Problems: All Active Problems (Updated 10/21/21 @ 12:26 by Yasmin Hill, BELÉN) Chest pain (Acute) Stress at home (Acute) Nondisplaced fracture of distal end of radius (Acute) Nondisplaced fracture of distal end of radius with routine healing (Acute) Arthritis of carpometacarpal (CMC) joint of right thumb (Acute) Arthritis of carpometacarpal (CMC) joint of left thumb (Acute) De Quervain's disease (radial styloid tenosynovitis) (Acute) Arthritis of right knee (Acute) Paroxysmal atrial fibrillation (Acute) Past Medical History Medical History Abnormal gait Hx of basal cell carcinoma IBS (irritable bowel syndrome) Lumbar spinal stenosis Major depression, recurrent, chronic Osteoarthritis Osteopenia Paroxysmal atrial fibrillation Pure hypercholesterolemia Severe major depression without psychotic features Vitamin D deficiency Family History Family History Father No problems noted. Mother No problems noted. Family history of problems with anesthesia: No Surgical History Surgical History History of esophagogastroduodenoscopy (EGD) Hx of appendectomy Hx of breast biopsy Hx of colonoscopy Hx of hysterectomy History of Problems with Anesthesia: No Social History Social History Are you a primary patient care associate to a significant other at home: No Do you presently have visiting nurse or other home services: Yes ([employer] 4 hours per week) Patient Tobacco Use Status: Former Tobacco user Quit Date: 2000 Tobacco use type: Cigarette Use of substances other than those prescribed or required for medical reasons: Yes Substance Use Frequency: Weekly Have you been hit, kicked, punched, or otherwise hurt by someone within the past year? If so, by whom?: No Spiritual Healthcare Practices: none Anglican Healthcare Practices: none Cultural Healthcare Practices: none Are you DNR?: No Advance Directives: Yes Advance Directives Information Provided: Yes Advance Directives on File: Yes Advance Directives Date on File: 09/19/16 Recently lost weight without trying: No Nutrition Risks: No Nutritional Risk Current occupational status: retired Current occupation: rt handed Narrative Narrative: No recent illness No CP or SOB but activity limited to pain Meds Allergies Allergy/AdvReac Type Severity Reaction Status Date / Time No Known Allergies Allergy Verified 10/28/21 11:18 [No Known Allergies*] Home Medications Medication Instructions Recorded Confirmed Last Taken Type clonazepam 2 mg tablet 2 mg PO BID PRN 07/14/20 10/21/21 Unknown History gabapentin 300 mg capsule 300 mg PO BEDTIME 07/14/20 10/21/21 Unknown History metoprolol succinate 50 mg 50 mg PO DAILY 07/14/20 10/21/21 Unknown History tablet,extended release 24 hr pantoprazole 40 mg tablet,delayed 40 mg PO DAILY 07/14/20 10/21/21 Unknown History release prazosin 2 mg capsule 2 mg PO BEDTIME 07/14/20 10/21/21 Unknown History venlafaxine 75 mg capsule,extended 75 mg PO DAILY 07/14/20 10/21/21 Unknown History release 24 hr dextroamphetamine-amphetamine 15 1 tab PO DAILY tab 08/09/21 10/21/21 Unknown History mg tablet hydroxyzine pamoate 25 mg capsule 25 mg PO DAILY cap 08/09/21 10/21/21 Unknown History solifenacin 5 mg tablet 5 mg PO DAILY 08/09/21 10/21/21 Unknown History acetaminophen 500 mg tablet 1,000 mg PO TID PRN 10/21/21 10/21/21 Unknown History Exam Exam Date and Time: October 21, 2021 1237 Height,Weight and Vital Signs: Height 5 ft 6 in Weight 112.3 kg Last Vital Signs Pulse 91 10/21/21 12:05 Resp 16 10/21/21 12:05 BP 131/76 10/21/21 12:05 Pulse Ox 96 10/21/21 12:05 Pertinent Lab Results Pertinent Lab Results: Laboratory Tests 10/05/21 10/05/21 12:35 12:35 WBC 9.8 Hgb 13.9 Hct 43.7 Plt Count 311 Sodium 140 Potassium 4.7 Chloride 106 Carbon Dioxide 30 H BUN 26 H Creatinine 0.68 Narrative Narrative: EKG 08/2021 normal sinus rhythm with normal EKG Airway Mallampati Class: I TM Dist: >3cm Neck ROM: Full Loose/Missing/Broken Teeth: No (Left lower crown stable) Heart: RRR Lungs: CTAB Assessment and Plan Assessment Anesthesia Assessment: Anesthesia Plan Discussed (Spinal and Adductor canal block) and PAT Visit Final Anesthetic Review Family History of Problems with Anesthesia: No History of Problems with Anesthesia: No Documented by User: Tristen Martinez MD 11/02/21 11:06 [facility] Past Medical History Medical History Abnormal gait Hx of basal cell carcinoma IBS (irritable bowel syndrome) Lumbar spinal stenosis Major depression, recurrent, chronic Osteoarthritis Osteopenia Paroxysmal atrial fibrillation Pure hypercholesterolemia Severe major depression without psychotic features Vitamin D deficiency Family History Family History Father No problems noted. Mother No problems noted. Surgical History Surgical History History of esophagogastroduodenoscopy (EGD) Hx of appendectomy Hx of breast biopsy Hx of colonoscopy Hx of hysterectomy Social History Social History Are you a primary patient care associate to a significant other at home: No Do you presently have visiting nurse or other home services: Yes ([employer] 4 hours per week) Patient Tobacco Use Status: Former Tobacco user Quit Date: 2000 Tobacco use type: Cigarette Use of substances other than those prescribed or required for medical reasons: Yes Substance Use Frequency: Weekly Have you been hit, kicked, punched, or otherwise hurt by someone within the past year? If so, by whom?: No Spiritual Healthcare Practices: none Anglican Healthcare Practices: none Cultural Healthcare Practices: none Are you DNR?: No Advance Directives: Yes Advance Directives Information Provided: Yes Advance Directives on File: Yes Advance Directives Date on File: 09/19/16 Recently lost weight without trying: No Nutrition Risks: No Nutritional Risk Current occupational status: retired Current occupation: rt handed Meds Allergies Allergy/AdvReac Type Severity Reaction Status Date / Time No Known Allergies Allergy Verified 10/28/21 11:18 [No Known Allergies*] Home Medications Medication Instructions Recorded Confirmed Last Taken Type clonazepam 2 mg tablet 2 mg PO BID PRN 07/14/20 10/21/21 Unknown History gabapentin 300 mg capsule 300 mg PO BEDTIME 07/14/20 10/21/21 Unknown History metoprolol succinate 50 mg 50 mg PO DAILY 07/14/20 10/21/21 Unknown History tablet,extended release 24 hr pantoprazole 40 mg tablet,delayed 40 mg PO DAILY 07/14/20 10/21/21 Unknown History release prazosin 2 mg capsule 2 mg PO BEDTIME 07/14/20 10/21/21 Unknown History venlafaxine 75 mg capsule,extended 75 mg PO DAILY 07/14/20 10/21/21 Unknown History release 24 hr dextroamphetamine-amphetamine 15 1 tab PO DAILY tab 08/09/21 10/21/21 Unknown History mg tablet hydroxyzine pamoate 25 mg capsule 25 mg PO DAILY cap 08/09/21 10/21/21 Unknown History solifenacin 5 mg tablet 5 mg PO DAILY 08/09/21 10/21/21 Unknown History acetaminophen 500 mg tablet 1,000 mg PO TID PRN 10/21/21 10/21/21 Unknown History Assessment and Plan Final Anesthetic Review NPO: Yes ASA Class: III Final Preanesthetic Review: No Changes in Pt Med Stat, Meds/Allgs Chart Reviewed, Consent Obtained/Reviewed, Anes Risks/Benef Reviewed and DNR Form (If Appl.) (reversed for 24 hours) Patient Risk: Intermediate Procedure Risk: Intermediate Anesthetic Plan Anesthetic Plan: MAC:, Spinal and Regional Block Disposition: Standard PACU
[2021-10-21 15:24] LABS: MRSA Nasal PCR NEGATIVE (Negative); SA Nasal PCR NEGATIVE (Negative)
[2021-11-02] VITALS (17 sets, daily range): BP systolic 101–155; BP diastolic 54–90; PULSE 52–86; RESP 16–20; TEMP 36.1–37.4; O2SAT 93–99
--- NOTE | ~2021-11-02 | XR_ITS ---
EXAMINATION: XR KNEE, RIGHT CLINICAL INFORMATION: Right knee replacement COMPARISON: Previous x-ray July 2021 TECHNIQUE: 2 views of the right knee. FINDINGS: There is a new 3 component right knee replacement in satisfactory position. No fracture or dislocation is seen. There are postoperative changes to the soft tissues. XR/XR knee RT 2V IMPRESSION: Satisfactory appearance of right knee replacement.
--- NOTE | 2021-11-02 07:48 | MHC.SHP ---
Pre-Procedural Eval Section A Date of Service: 11/02/21 The patient is an INPATIENT: No Changes since office visit: Yes Patient answered all questions; No Cold of Flu in the past 2 weeks, No New Medical Problems and No Changes in Medication The History & Physical has been completed within 30 days and I have reviewed it.: Yes Section B Chief Complaint: osteoarthritis Allergies: Allergies Allergy/AdvReac Type Severity Reaction Status Date / Time No Known Allergies Allergy Verified 10/28/21 11:18 [No Known Allergies*] Plan I have reviewed the history and physical and performed a pertinent physical examination on my patient. No changes have occurred unless specified.
[2021-11-02 08:07] LABS: COVID-19 Test Negative (Negative); IDNOW Serial# 55D5AD1C
[2021-11-02] MEDS: Lactated Ringers 1,000 ML 100 ML IVCONT (08:23)
--- NOTE | 2021-11-02 11:19 | PM.OP ---
Brief Operative Note Date of Service: 11/02/21 Pre-op diagnosis: right knee OA Post-op diagnosis: same Procedure: Right TKA Implants: Huyen triathalon posterio stabilized cemented 12/06/10PS/32a Surgeon: Higinio Hennessy MD Anesthesia: regional and spinal Was an Walnut Dehydrator Operator used for this Procedure?: Yes Walnut Dehydrator Operator: Glory Ramey Estimated blood loss (mL): 150 IV fluids (mL): 1,000 Pathology: other Condition: stable Disposition: PACU
--- NOTE | 2021-11-02 11:20 | W.PM.OPN ---
Operative Note Operative Note Date of Service: 11/02/21 Narrative: Pre-op diagnosis: right knee OA Post-op diagnosis: same Procedure: Right TKA Implants: [employer] triathalon posterior stabilized cemented 12/06/10PS/32a Surgeon: Higinio Hennessy MD Anesthesia: regional and spinal Was an Director Of Elementary Education used for this Procedure?: Yes Director Of Elementary Education: Glory Ramey Estimated blood loss (mL): 150 IV fluids (mL): 1,000 Pathology: other Condition: stable Disposition: PACU Procedure in detail: The patient was brought to the operating room and prepped and draped in standard sterile fashion. A time-out was called to identify proper site proper procedure proper surgeon and IV antibiotics were administered. 1 g of IV tranexamic acid was administered. I began by making a midline incision to the retinaculum and performed a medial parapatellar arthrotomy. The patella was translated laterally and the knee was flexed up. The MFC and the LTP were eburnated. I performed a small medial peel and resected the infrapatellar fat pad. Vianca's line was then used to drill my intramedullary femoral guide and my distal femur cut of 10 mm was made in 5 degrees of valgus while protecting the soft tissues. I then measured a # 4 femur and placed my cutting guide and made my anterior posterior and chamfer cuts protecting the soft tissues at all times. I then made my box but removing the PCL. Once I was satisfied with my cuts I turned my attention to the tibia. I removed the meniscus medially and laterally and , using an external cutting guide, in line with the tibial crest and the third ray, I made my distal tibial cut in 0 deg slope of while protecting the PCL the posterior soft tissues at all times. An extension block was used to confirm appropriate amount of bony resection. I then sized a #4 tibia and once I was satisfied that there was complete tibial coverage I placed my trial and with the trial femur in place took the knee through range of motion. I was satisfied with the extension and flexion as well as the stability at 0, 30 and 90 degrees. The knee was well balanced. I then turned my attention to the patella where I removed 1 cm from the undersurface of the patella and then trialed a 32a patellar button. Again the knee was taken through range of motion I was satisfied with the tracking. I then returned to the femur and drilled my femoral lug holes and prepared the tibia. A femoral bone plug was placed and the knee was irrigated copiously. I then cemented the patella, tibia and femur in standard fashion. Once the cement was dry I removed all excess cement. I trialed different inserts until I selected a #11 insert. The final insert was placed and a 3 minutes iodine soak with local TXA was performed. The knee was then closed with a running Quill suture, a 3 0 Vicryl and john on the skin. Patient was then placed in sterile dressing and brought to recovery room in stable condition there were no known complications.
[2021-11-02] MEDS: Dextrose 5 % and 0.45 % NaCl 1,000 ML 80 ML IVCONT (12:49)
[2021-11-02] MEDS: oxyCODONE HCl Immed Release 5 MG TABLET PO (14:05)
[2021-11-02] MEDS: Acetaminophen 325 MG TABLET 975 MG PO (14:05)
[2021-11-02] MEDS: HYDROmorphone HCl 0.5 MG/0.5 ML SYRINGE IVPUSH ×3 (14:10→16:40)
--- NOTE | 2021-11-02 16:06 | P.CONIM_ITS ---
History of Present Illness Data of Consult Service Date: 11/02/21 Requesting physician: Higinio Hennessy Primary Care Provider: Sally Stewart MD HPI Reason for consult: Medical management 70-year-old female with multiple comorbidities including hypertension, hypercholesteremia, history of episode of AFib, anxiety/depression: Patient came to the hospital because of knee pain-persistent from couple of years having limited motion-so decided for going for knee surgery. She got knee surgery today-seen postop-seems feeling better except has knee pain Denies any new complaint of chest pain or shortness of breath or abdominal pain or fever or chills or nausea or vomiting or palpitations Denies any cough Denies any weakness or numbness. Social history: Lives with family, denies any alcohol use or or smoking, uses marijuana occasionally as per patient. Review of Systems Review of Systems: As above. Yes all other systems are reviewed and are negative [facility] Medical History Abnormal gait Hx of basal cell carcinoma IBS (irritable bowel syndrome) Lumbar spinal stenosis Major depression, recurrent, chronic Osteoarthritis Osteopenia Paroxysmal atrial fibrillation Pure hypercholesterolemia Severe major depression without psychotic features Vitamin D deficiency Family History Father No problems noted. Mother No problems noted. Surgical History History of esophagogastroduodenoscopy (EGD) Hx of appendectomy Hx of breast biopsy Hx of colonoscopy Hx of hysterectomy Social History Are you a primary healthcare prof to a significant other at home: No Do you presently have visiting nurse or other home services: Yes ([employer] 4 hours per week) Patient Tobacco Use Status: Former Tobacco user Quit Date: 2000 Tobacco use type: Cigarette Use of substances other than those prescribed or required for medical reasons: Yes Substance Use Frequency: Weekly Have you been hit, kicked, punched, or otherwise hurt by someone within the past year? If so, by whom?: No Spiritual Healthcare Practices: none Restoration Healthcare Practices: none Cultural Healthcare Practices: none Are you DNR?: No Advance Directives: Yes Advance Directives Information Provided: Yes Advance Directives on File: Yes Advance Directives Date on File: 09/19/16 Recently lost weight without trying: No Nutrition Risks: No Nutritional Risk Current occupational status: retired Current occupation: rt handed Meds Allergies Allergy/AdvReac Type Severity Reaction Status Date / Time No Known Allergies Allergy Verified 10/28/21 11:18 [No Known Allergies*] Active Medications: Current Medications Acetaminophen (Acetaminophen 325 Mg Tablet) 650 mg PO Q6H PRN PRN Reason: Pain, Mild (Pain Scale 1-3) Celecoxib (Celecoxib 200 Mg Capsule) 200 mg PO BID [facility] Docusate Sodium (Docusate Sodium 100 Mg Capsule) 100 mg PO BID [facility] Gabapentin (Gabapentin 300 Mg Capsule) 300 mg PO BEDTIME [facility] Hydromorphone HCl (Hydromorphone Hcl 0.5 Mg/0.5 Ml Syringe) 0.5 mg IVPUSH Q15M PRN; Protocol PRN Reason: Pain, Moderate (Pain Scale 4-6 Last Admin: 11/02/21 14:25 Dose: 0.5 mg Documented by: Hydromorphone HCl (Hydromorphone Hcl 0.5 Mg/0.5 Ml Syringe) 0.25 mg IVPUSH Q3H PRN; Protocol PRN Reason: Pain, Severe (Pain Scale 7-10) Hydroxyzine HCl (Hydroxyzine Hcl 25 Mg Tablet) 25 mg PO DAILY [facility] Dextrose/Sodium Chloride (D51/2ns) 1,000 mls @ 80 mls/hr IVCONT .[id number] [facility] Last Admin: 11/02/21 12:49 Dose: 80 mls/hr Documented by: Cefazolin Sodium/Dextrose (Ancef) 2 gm in 50 mls @ 100 mls/hr IV ONCE@1615 [facility] Stop: 11/02/21 16:44 Metoprolol Succinate (Metoprolol Succinate Er 50 Mg Tab.Er.24h) 50 mg PO DAILY [facility]; Protocol Omeprazole (Omeprazole 20 Mg Capsule.Dr) 20 mg PO DAILY@0630 [facility] Ondansetron HCl (Ondansetron Hcl 4 Mg/2 Ml Vial) 4 mg IVPUSH Q8H PRN PRN Reason: Nausea and Vomiting Oxycodone HCl (Oxycodone Hcl Immed Release 5 Mg Tablet) 10 mg PO Q4H PRN PRN Reason: Pain, Moderate (Pain Scale 4-6 Oxycodone HCl (Oxycodone Hcl Er 10 Mg Tab.Er.12h) 20 mg PO BID [facility] Sodium Chloride (0.9 % Sodium Chloride Flush 3 Ml Syringe) 3 ml IVFLUSH QSHIFT [facility] Venlafaxine HCl (Venlafaxine Hcl Er 75 Mg Cap.Er.24h) 75 mg PO DAILY [facility] Home Medications Medication Instructions Recorded Confirmed Last Taken Type clonazepam 2 mg tablet 2 mg PO BID PRN 07/14/20 10/21/21 Unknown History gabapentin 300 mg capsule 300 mg PO BEDTIME 07/14/20 10/21/21 Unknown History metoprolol succinate 50 mg 50 mg PO DAILY 07/14/20 10/21/21 Unknown History tablet,extended release 24 hr pantoprazole 40 mg tablet,delayed 40 mg PO DAILY 07/14/20 10/21/21 Unknown History release prazosin 2 mg capsule 2 mg PO BEDTIME 07/14/20 10/21/21 Unknown History venlafaxine 75 mg capsule,extended 75 mg PO DAILY 07/14/20 10/21/21 Unknown History release 24 hr dextroamphetamine-amphetamine 15 1 tab PO DAILY tab 08/09/21 10/21/21 Unknown History mg tablet hydroxyzine pamoate 25 mg capsule 25 mg PO DAILY cap 08/09/21 10/21/21 Unknown History solifenacin 5 mg tablet 5 mg PO DAILY 08/09/21 10/21/21 Unknown History acetaminophen 500 mg tablet 1,000 mg PO TID PRN 10/21/21 10/21/21 Unknown History Physical Exam Vital Signs and Narrative: Vital Signs: Last Vital Signs Temp 98.6 F 11/02/21 15:40 Pulse 86 11/02/21 15:40 Resp 18 11/02/21 15:40 BP 142/77 H 11/02/21 15:40 Pulse Ox 95 11/02/21 15:40 BMI result Body Mass Index 39.9 Appearance: Alert.? Oriented X3.? not in distress.? Eyes: Pupils equal, round and reactive to light.? Sclera nonicteric.? ENT: Pharynx normal.? Moist mucous membranes. cvs: rrr, [id number]. res: clear to auscultation ,no rhonchii or wheezing abd: no rebound or guarding ,nt, bs present. ext pulses present , no cyanosis , right knee s/p orif , seems soar , no swelling or bleeding moves left leg fine , wiggle toes fine on right also , rom of motion restricted for surgery due to pain. neuro: axo3 , nonfocal. Results Labs Labs: Laboratory Results - last 24 hr 11/02/21 07:46 COVID-19 ([facility]) Negative COVID-19 Clin Com See Note noted no new labs today Imaging Radiologist's Impressions: Impressions Knee X-Ray 11/02/21 12:05 IMPRESSION: Satisfactory appearance of right knee replacement. Assessment and Plan (1) Paroxysmal atrial fibrillation: Status: Acute (2) HTN (hypertension): Status: Acute Plan 70-year-old female hypertension, hypercholesteremia, history of episode of AFib, anxiety/depression. 1. Knee OA: S/P ORIF Pain management,given extra iv dilaudid for pain, incentive sprio, chest physio bowel regimen 2. Htn: slightly suboptimal:possible pain might be contributing continue metoprolol 3.afib : denies any palpatations she said it was one episode inthe past , no other incidents moniter on tele Discussed with her in detail she said she already discussed with the under cutter and currently she seems uninterested inAC. if new afib episode -will d/w with cardiology. 4.Anxiety/depression: continue home meds dvt prophyalx: [facility] devices.
[2021-11-02] MEDS: 0.9 % Sodium Chloride Flush 3 ML SYRINGE IVFLUSH ×2 (16:19→20:53)
[2021-11-02] MEDS: ceFAZolin Sodium/Dextrose,Iso 2 GM/50 ML PIGGYBACK IV (16:20)
[2021-11-02] MEDS: polyethylene glycoL 3350 17 GM POWD.PACK PO (16:43)
[2021-11-02] MEDS: oxyCODONE HCl Immed Release 5 MG TABLET 10 MG PO ×2 (18:02→22:01)
[2021-11-02] MEDS: Acetaminophen 325 MG TABLET 650 MG PO (19:57)
[2021-11-02] MEDS: Prazosin HCL 1 MG CAPSULE 2 MG PO (20:29)
[2021-11-02] MEDS: oxyCODONE HCl ER 10 MG TAB.ER.12H 20 MG PO (20:30)
[2021-11-02] MEDS: Celecoxib 200 MG CAPSULE PO (20:30)
[2021-11-02] MEDS: Docusate Sodium 100 MG CAPSULE PO (20:30)
[2021-11-02] MEDS: Gabapentin 300 MG CAPSULE PO (20:30)
[2021-11-02] MEDS: HYDROmorphone HCl 0.5 MG/0.5 ML SYRINGE 0.25 MG IVPUSH (20:41)
[2021-11-03] VITALS (10 sets, daily range): BP systolic 107–146; BP diastolic 54–64; PULSE 76–99; RESP 16–18; TEMP 35.9–36.9; O2SAT 90–95
[2021-11-03] MEDS: HYDROmorphone HCl 0.5 MG/0.5 ML SYRINGE 0.25 MG IVPUSH ×2 (00:29→07:59)
--- NOTE | 2021-11-03 01:09 | PC.NURSE ---
0030 pt complaining of a lot of pain in right knee.medicated with dilaudid 0.25 mg iv.pt crying and very anxious she thinks she has a blood clot in her leg and wants to see the doctor for reassurance. notified and in to see pt.u/s of leg ordered for the am and dilaudid 0.6mg IV ordered x1.
[2021-11-03] MEDS: HYDROmorphone HCl 1 MG/ML SYRINGE 0.6 MG IVPUSH (01:41)
[2021-11-03] MEDS: oxyCODONE HCl Immed Release 5 MG TABLET 10 MG PO ×3 (03:52→18:27)
[2021-11-03] MEDS: Omeprazole 20 MG CAPSULE.DR PO (05:44)
[2021-11-03 06:08] LABS: Basophils Percent Auto 0.1 % (0-2); Eosinophils Percent Auto 0.1 % (0-4); Hematocrit 39.4 % (37.0-47.0); Hemoglobin 12.4 g/dl (12.0-16.0); Imm Gran Abs Auto 0.08 X10*3/uL (0.00-0.03); Imm Gran Pct Auto 0.5 % (0.0-0.4); Lymphocytes Absolute Auto 2.4 X10*3/uL (1.2-4.9); Lymphocytes Percent Auto 16.4 % (20-40); MANUAL DIFF FLAG SCAN; Mean Corpuscular HGB Conc 31.5 g/dl (31.0-35.0); Mean Corpuscular Hemoglobin 29.6 pg (27.0-33.0); Mean Platelet Volume 9.3 fL (9.4-12.3); Monocytes Absolute Auto 1.8 X10*3/uL (0.1-1.2); Monocytes Percent Auto 12.3 % (2-11); Neutrophils Absolute Auto 10.4 x10*3/uL (2.0-8.3); Neutrophils Percent Auto 70.6 % (45-73); Platelet Count 297 X10*3/uL (160-400); Red Blood Count 4.19 X10*6/uL (4.20-5.50); Red Cell Distribution Width 12.6 % (11.0-16.0); SCAN SMEAR FLAG 1; White Blood Count 14.7 X10*3/uL (4.8-10.8)
[2021-11-03 06:22] LABS: Anion Gap 11 (12-20); Blood Urea Nitrogen 17 mg/dL (9-16); Calcium 9.9 mg/dL (8.4-10.2); Carbon Dioxide 31 mmol/L (22-29); Chloride 102 mmol/L (96-108); Estimated Glomerular Filt Rate > 60; Glucose Fasting 120 mg/dL (60-99); Potassium 4.8 mmol/L (3.3-5.1); Sodium 139 mmol/L (135-145)
[2021-11-03 06:33] LABS: SLIDE REVIEW VERIFIED
[2021-11-03] MEDS: 0.9 % Sodium Chloride Flush 3 ML SYRINGE IVFLUSH ×3 (07:59→20:38)
--- NOTE | 2021-11-03 08:04 | PM.PNORT ---
Subjective Subjective Date of Service: 11/03/21 Interval history: POD 1 s/p RT TKA No overnight events She has some increased pain, but tolerable Denies sob, cp, palpitations Physical Exam Vital Signs: Vital Signs: Last Vital Signs Temp 97.6 F 11/03/21 07:32 Pulse 91 11/03/21 07:32 Resp 18 11/03/21 07:32 BP 135/54 L 11/03/21 07:32 Pulse Ox 92 11/03/21 07:32 BMI result Body Mass Index 39.9 Const: General: cooperative, healthy appearing and no acute distress Resp: Effort & Inspection: normal respiratory effort and able to speak in complete sentences Cardio: Rate: regular rate Peripheral pulses: Peripheral pulses 2+ throughout GI: Palpation (GI): Soft to palpation Skin: General skin exam: no rashes or lesions noted Extrem: Other: bandage clean dry and intact. No erythema or joint effusion. Calf supple nontender. Neurovascularly intact. Procedures Date of Service Date of Service: 11/03/21 Progress Note: A&P Assessment and plan (1) Status post total right knee replacement: Status: Acute Assessment and Plan: Continue pain mgmnt Begin Aspirin for dvt ppx begin PT for RT TKA Dispo planning-Pending PT eval, pain mgmnt Fall Risk Details Current Medications: Current Medications Acetaminophen (Acetaminophen 325 Mg Tablet) 650 mg PO Q6H PRN PRN Reason: Pain, Mild (Pain Scale 1-3) Last Admin: 11/02/21 19:57 Dose: 650 mg Documented by: Amphetamine/Dextroamphetamine (Amphetamine Mixed Salts 10 Mg Tablet) 15 mg PO DAILY [facility] Celecoxib (Celecoxib 200 Mg Capsule) 200 mg PO BID [facility] Last Admin: 11/02/21 20:30 Dose: 200 mg Documented by: Clonazepam (Clonazepam 1 Mg Tablet) 2 mg PO BID PRN PRN Reason: Anxiety Docusate Sodium (Docusate Sodium 100 Mg Capsule) 100 mg PO BID [facility] Last Admin: 11/02/21 20:30 Dose: 100 mg Documented by: Gabapentin (Gabapentin 300 Mg Capsule) 300 mg PO BEDTIME [facility] Last Admin: 11/02/21 20:30 Dose: 300 mg Documented by: Hydromorphone HCl (Hydromorphone Hcl 0.5 Mg/0.5 Ml Syringe) 0.5 mg IVPUSH Q15M PRN; Protocol PRN Reason: Pain, Moderate (Pain Scale 4-6 Last Admin: 11/02/21 14:25 Dose: 0.5 mg Documented by: Hydromorphone HCl (Hydromorphone Hcl 0.5 Mg/0.5 Ml Syringe) 0.25 mg IVPUSH Q3H PRN; Protocol PRN Reason: Pain, Severe (Pain Scale 7-10) Last Admin: 11/03/21 07:59 Dose: 0.25 mg Documented by: Hydroxyzine HCl (Hydroxyzine Hcl 25 Mg Tablet) 25 mg PO DAILY [facility] Metoprolol Succinate (Metoprolol Succinate Er 50 Mg Tab.Er.24h) 50 mg PO DAILY [facility]; Protocol Omeprazole (Omeprazole 20 Mg Capsule.Dr) 20 mg PO DAILY@0630 [facility] Last Admin: 11/03/21 05:44 Dose: 20 mg Documented by: Ondansetron HCl (Ondansetron Hcl 4 Mg/2 Ml Vial) 4 mg IVPUSH Q8H PRN PRN Reason: Nausea and Vomiting Oxycodone HCl (Oxycodone Hcl Immed Release 5 Mg Tablet) 10 mg PO Q4H PRN PRN Reason: Pain, Moderate (Pain Scale 4-6 Last Admin: 11/03/21 03:52 Dose: 10 mg Documented by: Oxycodone HCl (Oxycodone Hcl Er 10 Mg Tab.Er.12h) 20 mg PO BID [facility] Last Admin: 11/02/21 20:30 Dose: 20 mg Documented by: Polyethylene Glycol (Polyethylene Glycol 3350 17 Gm Powd.Pack) 17 gm PO DAILY [facility] Last Admin: 11/02/21 16:43 Dose: 17 gm Documented by: Prazosin HCl (Prazosin Hcl 1 Mg Capsule) 2 mg PO BEDTIME [facility]; Protocol Last Admin: 11/02/21 20:29 Dose: 2 mg Documented by: Sodium Chloride (0.9 % Sodium Chloride Flush 3 Ml Syringe) 3 ml IVFLUSH QSHIFT [facility] Last Admin: 11/03/21 07:59 Dose: 3 ml Documented by: Venlafaxine HCl (Venlafaxine Hcl Er 75 Mg Cap.Er.24h) 75 mg PO DAILY [facility] Time Spent With Patient Time: Total time spent is greater than 50% in coordination of care (as documented) at patient's floor/unit and/or counseling patient: Time with patient: less than 15 minutes Quality Stroke Does the patient have a stroke diagnosis?: No VTE Prior VTE?: No VTE Risk Level:: Surgical - very high VTE Device Contraindication: N/A - Device Ordered VTE Drug Contraindication: N/A - Med Ordered
--- NOTE | 2021-11-03 08:17 | HO.POSTANES ---
Post Anesthesia Evaluation Post Anesthesia Evaluation Vital Signs: Vital Signs Temp Pulse Resp BP Pulse Ox 11/03/21 08:03 91 135/54 L 92 11/03/21 07:32 97.6 F 91 18 135/54 L 92 11/03/21 04:00 97.5 F 99 16 109/57 L 93 11/03/21 00:00 97.6 F 78 17 135/63 92 Anesthesia: Spinal and Nerve Block Mental Status: Awake Pain Control: Satisfactory (pain was difficult to control throughout the night) Nausea/Vomiting: None Hydration: Adequate Anesthesia-Related Issues: No Anes. Related Issues
[2021-11-03] MEDS: Celecoxib 200 MG CAPSULE PO ×2 (09:24→20:37)
[2021-11-03] MEDS: Docusate Sodium 100 MG CAPSULE PO ×2 (09:24→20:37)
[2021-11-03] MEDS: Amphetamine Mixed Salts 10 MG TABLET 15 MG PO (09:24)
[2021-11-03] MEDS: oxyCODONE HCl ER 10 MG TAB.ER.12H 20 MG PO ×2 (09:24→20:37)
[2021-11-03] MEDS: polyethylene glycoL 3350 17 GM POWD.PACK PO (09:25)
[2021-11-03] MEDS: Venlafaxine HCl ER 75 MG CAP.ER.24H PO (09:25)
[2021-11-03] MEDS: hydrOXYzine HCL 25 MG TABLET PO (09:25)
[2021-11-03] MEDS: Metoprolol Succinate ER 50 MG TAB.ER.24H PO (09:25)
--- NOTE | 2021-11-03 09:30 | MHC.CM.PN ---
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 SHE HAS BEEN COVID VACCINATED 3X. SHE IS UNABLE TO RECALL THE DATES. SHE ASKS FOR A REFERRAL TO (1ST CHOICE) [facility] AND THEN [facility] SHE USES A CANE AND WALKER AT HOME SHE DOES DRIVE HERSELF WHERE NEEDED HCP ON FILE AND VERIFIED IMM 3/2 IN CHART
--- NOTE | 2021-11-03 11:44 | HO.PM.IMPN ---
Subjective Subjective Date of Service: 11/03/21 Interval History: F/u med issues, s/p knee replacement, some increased pain overnight but better this morning Review of Systems knee pain no sob Physical Exam Vital Signs: Vital Signs: Last Vital Signs Temp 96.8 F 11/03/21 11:20 Pulse 87 11/03/21 11:20 Resp 18 11/03/21 11:20 BP 114/59 L 11/03/21 11:20 Pulse Ox 92 11/03/21 11:20 BMI result Body Mass Index 39.9 Const: Other: General: AO X 3, no acute distress Resp: CTA bilateral CVS: S1,S2,RRR GI: +BS, NT, no distention Skin: No rash Neuro: motor grossly intact Psych: appropriate affect Objective Data Active Medications Acetaminophen (Acetaminophen 325 Mg Tablet) 650 mg PO Q6H PRN PRN Reason: Pain, Mild (Pain Scale 1-3) Last Admin: 11/02/21 19:57 Dose: 650 mg Documented by: IVORY Amphetamine/Dextroamphetamine (Amphetamine Mixed Salts 10 Mg Tablet) 15 mg PO DAILY [facility] Last Admin: 11/03/21 09:24 Dose: 15 mg Documented by: ANNABELLE Aspirin (Aspirin 325 Mg Tablet) 325 mg PO BID [facility] Last Admin: 11/03/21 09:28 Dose: Not Given Documented by: ANNABELLE Non-Admin Reason: pt claims causes GI upset Celecoxib (Celecoxib 200 Mg Capsule) 200 mg PO BID [facility] Last Admin: 11/03/21 09:24 Dose: 200 mg Documented by: ANNABELLE Clonazepam (Clonazepam 1 Mg Tablet) 2 mg PO BID PRN PRN Reason: Anxiety Docusate Sodium (Docusate Sodium 100 Mg Capsule) 100 mg PO BID [facility] Last Admin: 11/03/21 09:24 Dose: 100 mg Documented by: ANNABELLE Gabapentin (Gabapentin 300 Mg Capsule) 300 mg PO BEDTIME [facility] Last Admin: 11/02/21 20:30 Dose: 300 mg Documented by: IVORY Hydromorphone HCl (Hydromorphone Hcl 0.5 Mg/0.5 Ml Syringe) 0.5 mg IVPUSH Q15M PRN; Protocol PRN Reason: Pain, Moderate (Pain Scale 4-6 Last Admin: 11/02/21 14:25 Dose: 0.5 mg Documented by: BUD Hydromorphone HCl (Hydromorphone Hcl 0.5 Mg/0.5 Ml Syringe) 0.25 mg IVPUSH Q3H PRN; Protocol PRN Reason: Pain, Severe (Pain Scale 7-10) Last Admin: 11/03/21 07:59 Dose: 0.25 mg Documented by: ANNABELLE Hydroxyzine HCl (Hydroxyzine Hcl 25 Mg Tablet) 25 mg PO DAILY [facility] Last Admin: 11/03/21 09:25 Dose: 25 mg Documented by: ANNABELLE Metoprolol Succinate (Metoprolol Succinate Er 50 Mg Tab.Er.24h) 50 mg PO DAILY [facility]; Protocol Last Admin: 11/03/21 09:25 Dose: 50 mg Documented by: ANNABELLE Omeprazole (Omeprazole 20 Mg Capsule.Dr) 20 mg PO DAILY@0630 [facility] Last Admin: 11/03/21 05:44 Dose: 20 mg Documented by: IVORY Ondansetron HCl (Ondansetron Hcl 4 Mg/2 Ml Vial) 4 mg IVPUSH Q8H PRN PRN Reason: Nausea and Vomiting Oxycodone HCl (Oxycodone Hcl Immed Release 5 Mg Tablet) 10 mg PO Q4H PRN PRN Reason: Pain, Moderate (Pain Scale 4-6 Last Admin: 11/03/21 03:52 Dose: 10 mg Documented by: IVORY Oxycodone HCl (Oxycodone Hcl Er 10 Mg Tab.Er.12h) 20 mg PO BID [facility] Last Admin: 11/03/21 09:24 Dose: 20 mg Documented by: ANNABELLE Polyethylene Glycol (Polyethylene Glycol 3350 17 Gm Powd.Pack) 17 gm PO DAILY [facility] Last Admin: 11/03/21 09:25 Dose: 17 gm Documented by: ANNABELLE Prazosin HCl (Prazosin Hcl 1 Mg Capsule) 2 mg PO BEDTIME [facility]; Protocol Last Admin: 11/02/21 20:29 Dose: 2 mg Documented by: IVORY Sodium Chloride (0.9 % Sodium Chloride Flush 3 Ml Syringe) [facility] Last Admin: 11/03/21 07:59 Dose: 3 ml Documented by: ANNABELLE Venlafaxine HCl (Venlafaxine Hcl Er 75 Mg Cap.Er.24h) 75 mg PO DAILY [facility] Last Admin: 11/03/21 09:25 Dose: 75 mg Documented by: ANNABELLE Labs CBC & Chem 7: 11/03/21 05:48 11/03/21 05:48 Labs: Laboratory Results - last 24 hr 11/03/21 11/03/21 05:48 05:48 MCV 94.0 MCH 29.6 MCHC 31.5 RDW 12.6 Plt Count 297 MPV 9.3 L Immature Gran % (Auto) 0.5 H Neut % (Auto) 70.6 Lymph % (Auto) 16.4 L [place] % (Auto) 12.3 H Eos % (Auto) 0.1 Baso % (Auto) 0.1 Lymph # (Auto) 2.4 [place] # (Auto) 1.8 H Eos # (Auto) 0.0 Baso # (Auto) 0.0 Abs Immat Gran (auto) 0.08 H Absolute Neuts (auto) 10.4 H Absolute Nucleated RBC 0.000 Nucleated RBC % (auto) 0.0 Smear Tech's Comments VERIFIED Anion Gap 11 L Estim Creat Clear Calc 95.0 Estimated GFR > 60 Fasting Glucose 120 H Calcium 9.9 Assessment and Plan (1) HTN (hypertension): Status: Acute Assessment and Plan: 70-year-old female hypertension, hypercholesteremia, history of episode of AFib, anxiety/depression. 1. Knee OA: S/P ORIF management by ortho 2. Htn: controlled, continue metoprolol 3.afib : denies any palpatations she said it was one episode inthe past , no other incidents moniter on tele Discussed with her in detail she said she already discussed with the emergency management coordinator and currently she seems uninterested inAC. 4.Anxiety/depression: continue home med[facility] Quality Stroke Does the patient have a stroke diagnosis?: No VTE Prior VTE?: No VTE Risk Level:: Surgical - very high VTE Device Contraindication: N/A - Device Ordered VTE Drug Contraindication: N/A - Med Ordered
[2021-11-03] MEDS: Acetaminophen 325 MG TABLET 650 MG PO ×2 (12:19→18:27)
[2021-11-03] MEDS: Aspirin 325 MG TABLET PO (20:37)
[2021-11-03] MEDS: Gabapentin 300 MG CAPSULE PO (20:37)
[2021-11-03] MEDS: Prazosin HCL 1 MG CAPSULE 2 MG PO (20:38)
[2021-11-04 03:49] VITALS: BP 121/57; PULSE 89; RESP 14; TEMP 36; O2SAT 90
[2021-11-04] MEDS: Acetaminophen 325 MG TABLET 650 MG PO (04:02)
[2021-11-04] MEDS: Omeprazole 20 MG CAPSULE.DR PO (05:45)
[2021-11-04 06:52] LABS: MANUAL DIFF FLAG NO
[2021-11-04 07:00] LABS: Basophils Absolute Auto 0.1 X10*3/uL (0.0-0.2); Basophils Percent Auto 0.4 % (0-2); Eosinophils Absolute Auto 0.2 X10*3/uL (0.0-0.4); Eosinophils Percent Auto 2.1 % (0-4); Hematocrit 36.7 % (37.0-47.0); Hemoglobin 11.7 g/dl (12.0-16.0); Imm Gran Abs Auto 0.08 X10*3/uL (0.00-0.03); Imm Gran Pct Auto 0.7 % (0.0-0.4); Lymphocytes Absolute Auto 2.5 X10*3/uL (1.2-4.9); Mean Corpuscular HGB Conc 31.9 g/dl (31.0-35.0); Mean Corpuscular Hemoglobin 29.7 pg (27.0-33.0); Mean Corpuscular Volume 93.1 fL (80.0-98.0); Mean Platelet Volume 9.7 fL (9.4-12.3); Monocytes Absolute Auto 1.3 X10*3/uL (0.1-1.2); Monocytes Percent Auto 11.6 % (2-11); Neutrophils Absolute Auto 7.2 x10*3/uL (2.0-8.3); Neutrophils Percent Auto 63.2 % (45-73); Platelet Count 253 X10*3/uL (160-400); Red Blood Count 3.94 X10*6/uL (4.20-5.50); Red Cell Distribution Width 12.8 % (11.0-16.0); White Blood Count 11.4 X10*3/uL (4.8-10.8)
[2021-11-04 07:19] LABS: Anion Gap 10 (12-20); Blood Urea Nitrogen 19 mg/dL (9-16); Calcium 9.2 mg/dL (8.4-10.2); Carbon Dioxide 31 mmol/L (22-29); Chloride 102 mmol/L (96-108); Creatinine Clr Calc Pharmacy 102.3; Estimated Glomerular Filt Rate > 60; Glucose Fasting 98 mg/dL (60-99); Potassium 4.7 mmol/L (3.3-5.1); Sodium 138 mmol/L (135-145)
[2021-11-04 07:39] VITALS: BP 127/57; PULSE 92; RESP 18; TEMP 36.5; O2SAT 91
[2021-11-04] MEDS: hydrOXYzine HCL 25 MG TABLET PO (08:10)
[2021-11-04] MEDS: Metoprolol Succinate ER 50 MG TAB.ER.24H PO (08:10)
[2021-11-04] MEDS: Celecoxib 200 MG CAPSULE PO (08:10)
[2021-11-04] MEDS: Docusate Sodium 100 MG CAPSULE PO (08:11)
[2021-11-04] MEDS: oxyCODONE HCl ER 10 MG TAB.ER.12H 20 MG PO (08:11)
[2021-11-04] MEDS: Amphetamine Mixed Salts 10 MG TABLET 15 MG PO (08:12)
[2021-11-04] MEDS: 0.9 % Sodium Chloride Flush 3 ML SYRINGE IVFLUSH (08:12)
[2021-11-04] MEDS: polyethylene glycoL 3350 17 GM POWD.PACK PO (08:12)
[2021-11-04] MEDS: Venlafaxine HCl ER 75 MG CAP.ER.24H PO (08:17)
--- NOTE | 2021-11-04 09:01 | PM.DS ---
DS: Providers Provider Date of Service: 11/04/21 Date of admission: 11/02/21 07:20 Primary care physician: Sally Stewart MD Consults: 11/02/21 15:41 Consult to Hospitalist Routine Consulting Provider: Hospitalist Reason For Exam: htn DS: Diagnosis Discharge Diagnosis (1) Status post total right knee replacement: Status: Acute DS: Summary Hospital Course Hospital Course: The patient underwent a successful right total knee arthroplasty, was transferred to PACU and then to the floor to recover. During their stay, their vitals were stable, afebrile at 97.7 . Labs were unremarkable, H/H 11.7/36.7. POD 1 she was started on aspirin for DVT ppx, they also received physical therapy services twice a day. Prior to discharge, their dressing was change, incision clean dry and intact, new Aquacel dressing applied and the plan was to be discharged short-term rehab Time Spent with Patient Time attestation: Total time spent providing and/or coordinating discharge services: Discharge coordination time: Less than 30 minutes Quality: Stroke Does the patient have a stroke diagnosis?: No Physical Exam Vital Signs: Vital Signs: Last Vital Signs Temp 97.7 F 11/04/21 07:39 Pulse 92 11/04/21 07:39 Resp 18 11/04/21 07:39 BP 127/57 L 11/04/21 07:39 Pulse Ox 91 L 11/04/21 07:39 BMI result Body Mass Index 39.9 Const: General: cooperative, healthy appearing and no acute distress Resp: Effort & Inspection: normal respiratory effort and able to speak in complete sentences Cardio: Rate: regular rate Peripheral pulses: Peripheral pulses 2+ throughout GI: Palpation (GI): Soft to palpation Skin: General skin exam: no rashes or lesions noted Extrem: Other: incision clean dry and intact. Gerry intact. No erythema or joint effusion. Calf supple nontender. Neurovascularly intact. DS: Data Data Completed and Pending Completed studies during hospitalization [Text1]: Pending at discharge 11/02/21 11:04 Surgical [PTH] Routine Labs on day of discharge: Laboratory Results - last 24 hr 11/04/21 11/04/21 05:27 05:27 WBC 11.4 H RBC 3.94 L Hgb 11.7 L Hct 36.7 L MCV 93.1 MCH 29.7 MCHC 31.9 RDW 12.8 Plt Count 253 MPV 9.7 Immature Gran % (Auto) 0.7 H Neut % (Auto) 63.2 Lymph % (Auto) 22.0 Shannon % (Auto) 11.6 H Eos % (Auto) 2.1 Baso % (Auto) 0.4 Lymph # (Auto) 2.5 Shannon # (Auto) 1.3 H Eos # (Auto) 0.2 Baso # (Auto) 0.1 Abs Immat Gran (auto) 0.08 H Absolute Neuts (auto) 7.2 Absolute Nucleated RBC 0.000 Nucleated RBC % (auto) 0.0 Sodium 138 Potassium 4.7 Chloride 102 Carbon Dioxide 31 H Anion Gap 10 L BUN 19 H Creatinine 0.65 Estim Creat Clear Calc 102.3 Estimated GFR > 60 Fasting Glucose 98 Calcium 9.2 D Discharge Plan Discharge Patient Disposition: Xfer SNF Discharge Diagnosis: RT TKA Referrals: Glory Ramey PA-C [Physician Senior Management Consultant] - 2 Weeks [place]11/18/21 12:[place] [facility] [place] [facility] Glory Ramey PA-C[place] Discharge Medications: New docusate sodium 100 mg Capsule 100 mg PO BID 14 Days Qty: 28 0RF oxycodone 10 mg tablet 10 mg PO Q4H PRN (Reason: Pain, Moderate (Pain Scale 4-6) 7 Days Qty: 42 0RF aspirin 325 mg Tablet 325 mg PO BID 42 Days Qty: 84 0RF acetaminophen 325 mg Tablet 650 mg PO Q6H PRN (Reason: Pain, Mild (Pain Scale 1-3)) 30 Days Qty: 240 0RF dextroamphetamine-amphetamine 10 mg Tablet 15 mg PO DAILY 21 Days Qty: 32 0RF Continued [facility]DME[facility] See Rx Instructions .MEDSUPPLY Qty: 1 0RF Rx Instructions: Folding Front wheeled walker acetaminophen 500 mg Tablet 1,000 mg PO TID PRN (Reason: Pain) 0RF prazosin 2 mg capsule 2 mg PO BEDTIME 0RF clonazepam 2 mg tablet 2 mg PO BID PRN (Reason: Anxiety) 0RF venlafaxine 75 mg capsule,extended release 24hr 75 mg PO DAILY 0RF gabapentin 300 mg capsule 300 mg PO BEDTIME 0RF pantoprazole 40 mg tablet,delayed release (DR/EC) 40 mg PO DAILY 0RF metoprolol succinate 50 mg tablet extended release 24 hr 50 mg PO DAILY 0RF dextroamphetamine-amphetamine 15 mg tablet 1 tab PO DAILY 0RF hydroxyzine pamoate 25 mg capsule 25 mg PO DAILY 0RF solifenacin 5 mg tablet 5 mg PO DAILY 0RF (DME) Neoprene wrist sleeve See Rx Instructions .Route .MEDSUPPLY Qty: 1 0RF Rx Instructions: As directed Discharge Orders: Discharge Order (Routine); Ordered 11/04/21 Ordered By: Glory Ramey Diet: regular diet Activity on Discharge: Use cane or walker Stand Alone Forms: Patient Portal Discharge page Care Plan Goals: Restore function of joint Health Concerns: none Plan of Treatment: Physical Therapy Pain management DVT prophylaxis Assessment: Physical Therapy for Total knee arthroplasty: gait training, ROM 0-12, quad strength Limit stair climbing No showering, no tub bath-keep dressing clean, dry and intact No driving x6 weeks Continue Aspirin twice a day x 6 weeks [place] [facility] [place] [place]
--- NOTE | 2021-11-04 09:07 | P.PNIM_ITS ---
Subjective Subjective Date of Service: 11/04/21 Interval History: F/u med issues, s/p knee replacement, pain is controlled. Review of Systems knee pain no sob Physical Exam Vital Signs: Vital Signs: Last Vital Signs Temp 97.7 F 11/04/21 07:39 Pulse 92 11/04/21 07:39 Resp 18 11/04/21 07:39 BP 127/57 L 11/04/21 07:39 Pulse Ox 91 L 11/04/21 07:39 BMI result Body Mass Index 39.9 Const: Other: General: AO X 3, no acute distress Resp: CTA bilateral CVS: S1,S2,RRR GI: +BS, NT, no distention Skin: No rash Neuro: motor grossly intact Psych: appropriate affect Objective Data Active Medications Acetaminophen (Acetaminophen 325 Mg Tablet) 650 mg PO Q6H PRN PRN Reason: Pain, Mild (Pain Scale 1-3) Last Admin: 11/04/21 04:02 Dose: 650 mg Documented by: CECILIO Amphetamine/Dextroamphetamine (Amphetamine Mixed Salts 10 Mg Tablet) 15 mg PO DAILY [facility] Last Admin: 11/04/21 08:12 Dose: 15 mg Documented by: ANNABELLE Aspirin (Aspirin 325 Mg Tablet) 325 mg PO BID [facility] Last Admin: 11/04/21 08:12 Dose: Not Given Documented by: ANNABELLE Non-Admin Reason: Patient Refused Celecoxib (Celecoxib 200 Mg Capsule) 200 mg PO BID [facility] Last Admin: 11/04/21 08:10 Dose: 200 mg Documented by: ANNABELLE Clonazepam (Clonazepam 1 Mg Tablet) 2 mg PO BID PRN PRN Reason: Anxiety Docusate Sodium (Docusate Sodium 100 Mg Capsule) 100 mg PO BID [facility] Last Admin: 11/04/21 08:11 Dose: 100 mg Documented by: ANNABELLE Gabapentin (Gabapentin 300 Mg Capsule) 300 mg PO BEDTIME [facility] Last Admin: 11/03/21 20:37 Dose: 300 mg Documented by: CECILIO Hydromorphone HCl (Hydromorphone Hcl 0.5 Mg/0.5 Ml Syringe) 0.5 mg IVPUSH Q15M PRN; Protocol PRN Reason: Pain, Moderate (Pain Scale 4-6 Last Admin: 11/02/21 14:25 Dose: 0.5 mg Documented by: BUD Hydromorphone HCl (Hydromorphone Hcl 0.5 Mg/0.5 Ml Syringe) 0.25 mg IVPUSH Q3H PRN; Protocol PRN Reason: Pain, Severe (Pain Scale 7-10) Last Admin: 11/03/21 07:59 Dose: 0.25 mg Documented by: ANNABELLE Hydroxyzine HCl (Hydroxyzine Hcl 25 Mg Tablet) 25 mg PO DAILY [facility] Last Admin: 11/04/21 08:10 Dose: 25 mg Documented by: ANNABELLE Metoprolol Succinate (Metoprolol Succinate Er 50 Mg Tab.Er.24h) 50 mg PO DAILY [facility]; Protocol Last Admin: 11/04/21 08:10 Dose: 50 mg Documented by: ANNABELLE Omeprazole (Omeprazole 20 Mg Capsule.Dr) 20 mg PO DAILY@0630 [facility] Last Admin: 11/04/21 05:45 Dose: 20 mg Documented by: CECILIO Ondansetron HCl (Ondansetron Hcl 4 Mg/2 Ml Vial) 4 mg IVPUSH Q8H PRN PRN Reason: Nausea and Vomiting Oxycodone HCl (Oxycodone Hcl Immed Release 5 Mg Tablet) 10 mg PO Q4H PRN PRN Reason: Pain, Moderate (Pain Scale 4-6 Last Admin: 11/03/21 18:27 Dose: 10 mg Documented by: ANNABELLE Oxycodone HCl (Oxycodone Hcl Er 10 Mg Tab.Er.12h) 20 mg PO BID [facility] Last Admin: 11/04/21 08:11 Dose: 20 mg Documented by: ANNABELLE Polyethylene Glycol (Polyethylene Glycol 3350 17 Gm Powd.Pack) 17 gm PO DAILY [facility] Last Admin: 11/04/21 08:12 Dose: 17 gm Documented by: ANNABELLE Prazosin HCl (Prazosin Hcl 1 Mg Capsule) 2 mg PO BEDTIME [facility]; Protocol Last Admin: 11/03/21 20:38 Dose: 2 mg Documented by: CECILIO Sodium Chloride (0.9 % Sodium Chloride Flush 3 Ml Syringe) [facility] Last Admin: 11/04/21 08:12 Dose: 3 ml Documented by: ANNABELLE Venlafaxine HCl (Venlafaxine Hcl Er 75 Mg Cap.Er.24h) 75 mg PO DAILY [facility] Last Admin: 11/04/21 08:17 Dose: 75 mg Documented by: ANNABELLE Labs CBC & Chem 7: 11/04/21 05:27 11/04/21 05:27 Labs: Laboratory Results - last 24 hr 11/04/21 11/04/21 05:27 05:27 MCV 93.1 MCH 29.7 MCHC 31.9 RDW 12.8 Plt Count 253 MPV 9.7 Immature Gran % (Auto) 0.7 H Neut % (Auto) 63.2 Lymph % (Auto) 22.0 [place] % (Auto) 11.6 H Eos % (Auto) 2.1 Baso % (Auto) 0.4 Lymph # (Auto) 2.5 [place] # (Auto) 1.3 H Eos # (Auto) 0.2 Baso # (Auto) 0.1 Abs Immat Gran (auto) 0.08 H Absolute Neuts (auto) 7.2 Absolute Nucleated RBC 0.000 Nucleated RBC % (auto) 0.0 Anion Gap 10 L Estim Creat Clear Calc 102.3 Estimated GFR > 60 Fasting Glucose 98 Calcium 9.2 D Assessment and Plan (1) HTN (hypertension): Status: Acute Assessment and Plan: 70-year-old female hypertension, hypercholesteremia, history of episode of AFib, anxiety/depression. 1. Knee OA: S/P ORIF management by ortho 2. Htn: controlled, continue metoprolol 3.Chronic Afib :rate is controlled -Had opted for no AC, discussed with her power systems engineer, and still not interested in AM, understading riks of stroke 4.Anxiety/depression: continue home meds dvt prophyalx: [facility] devices, ASA Quality Stroke Does the patient have a stroke diagnosis?: No VTE Prior VTE?: No VTE Risk Level:: Surgical - very high VTE Device Contraindication: N/A - Device Ordered VTE Drug Contraindication: N/A - Med Ordered
[2021-11-04 09:49] LABS: COVID-19 Test Negative (Negative); IDNOW Serial# 16C4AD1C
[2021-11-04 09:50] VITALS: BP 127/57; PULSE 92; O2SAT 91
--- NOTE | 2021-11-04 10:21 | MHC.CM.PN ---
padmini director case note patient to be dischagred today to short term rehab , has been clinically accepted by [facility], she will be having a pcr covid test before leaving, she will be transported via action wheelchair van with anticipated time of 13:00 . staff nurse aware
[2021-11-04 10:58] LABS: Influenza A PCR NEGATIVE (Negative); Influenza B PCR NEGATIVE (Negative); Resp Syncy Virus RNA Qual PCR NEGATIVE (Negative); SARS COV2 PCR INHOUSE NEGATIVE (Negative)
[2021-11-04 11:19] VITALS: BP 107/51; PULSE 82; RESP 18; TEMP 36.3; O2SAT 92
[2021-11-04] MEDS: oxyCODONE HCl Immed Release 5 MG TABLET 10 MG PO (12:39)
== END 2021-11-04 15:25 | disposition skilled nursing facility (03) | DRG 470 ==
LOC: HO.SSSA 12:48 → HO.S3 14:21
PROVIDERS: Admitting Provider Physician Assistant; PCP Internal Medicine; Visit Provider Orthopaedic Surgery
PROC: 0SRC0J9 Replacement of Right Knee Joint with Synthetic Substitute, Cemented, Open Approach (ICD-10-PCS; CPT 27447; principal; 2021-11-02 09:30)
DX: M17.11 Unilateral primary osteoarthritis, right knee (principal); I10 Essential (primary) hypertension; E78.00 Pure hypercholesterolemia, unspecified; F32.A Depression, unspecified; F41.9 Anxiety disorder, unspecified; Z20.822 Contact with and (suspected) exposure to COVID-19; Z87.891 Personal history of nicotine dependence; Z79.899 Other long term (current) drug therapy
CPT/HCPCS: 27447; 0241U; 36415; 73560; 80048; 85025; 86850; 86900; 86901; 87635; 87640; 87641; 88305; 88311; 97110; 97116; 97162; 97530; C1713; C1776; J0690; J1100; J1170; J2250; J2370

== ENCOUNTER 2021-11-10 14:04 | Emergency (ER) | payer MEDICARE, OTHER, SELFPAY ==
--- NOTE | ~2021-11-10 | CT_ITS ---
EXAMINATION: CT ANGIOGRAM OF THE CHEST WITH AND WITHOUT CONTRAST (CT PULMONARY ANGIOGRAM FOR PE) CLINICAL INFORMATION: Reason for Exam SOB s/p total knee replacement COMPARISON: None TECHNIQUE: Prior to contrast administration, noncontrast localization images were obtained. Subsequently, multidetector volumetric imaging was performed from the thoracic inlet to below the diaphragms following the administration of 71 mL Omnipaque 350 intravenous contrast. No contrast reaction reported Sagittal, coronal, and MIP oblique sagittal reformatted images were obtained on the CT workstation, uploaded to PACS, and reviewed. This CT examination was performed using dose optimization techniques as appropriate, variously including the following: *Automated exposure control *Adjustment of mA and/or kV according to patient size (this includes techniques or standardized protocols for targeted exams where dose is matched to indication/reason for exam; i.e. extremities or head) *Use of iterative reconstruction technique Total exam dose-length product 430 mGy-cm FINDINGS: QUALITY OF STUDY/CONTRAST BOLUS: Suboptimal. PULMONARY ARTERIES: No central or segmental pulmonary emboli. THORACIC AORTA: No aneurysm or dissection. LUNG: No focal consolidation, nodules or masses. Scarring/atelectasis is present at the lung bases. PLEURA: No pleural effusion or pneumothorax. MEDIASTINUM: Normal heart size. Three-vessel branching pattern of the aortic arch is present, the first vessel the common brachiocephalic and left carotid trunk, the second branch the left subclavian and the third vessel an aberrant right subclavian. No pericardial effusion. No hilar or mediastinal lymphadenopathy. No evidence of septal bowing or right heart strain. CHEST WALL/AXILLA: No axillary or internal mammary lymphadenopathy. OSSEOUS STRUCTURES: No acute or suspicious osseous abnormality. UPPER ABDOMEN: There is a benign 3.5 cm Bosniak class I right upper pole renal cyst and a smaller left upper pole renal cyst. No further imaging or follow-up is needed. No reflux of contrast into the hepatic veins to suggest elevated right heart pressures. CT/CT angio chest PE protocol IMPRESSION: No evidence of pulmonary emboli Other incidental findings as described above VTE: negative
--- NOTE | ~2021-11-10 | US_ITS ---
EXAMINATION: US VENOUS ULTRASOUND WITH DOPPLER LOWER EXTREMITY, RIGHT CLINICAL INFORMATION: Postoperative right lower extremity swelling and pain, knee replacement one week ago COMPARISON: None TECHNIQUE: Ultrasound of the deep veins is performed from the hip to the calf with compression sonography and color and pulse Doppler assessment. Spectral analysis with color-flow imaging is performed. FINDINGS: There is normal venous compression and respiratory variation and augmented flow. The visualized common femoral vein, superficial femoral vein, profunda femoral vein, popliteal vein, and the trifurcation region shows no evidence of deep venous thrombosis. There is no significant popliteal fossa cyst. If the patient's symptoms persist, followup ultrasound in 5 days 7 days might be of value to exclude proximal propagation from a non-visualized calf vein. US/US venous duplex LE RT IMPRESSION: No DVT demonstrated in the right lower extremity.
--- NOTE | 2021-11-10 14:08 | ED_ITS ---
HPI - Extremity Injury (Lower) General Chief Complaint: General Medical Stated Complaint: KNEE PAIN S/P TKR Time Seen by Provider: 11/10/21 14:07 Source: patient, EMS and old records reviewed Mode of arrival: EMS Limitations: no limitations History of Present Illness HPI Narrative: 70 y/o female who is POD #8 from right total knee replacement by Dr. Hennessy who presents to the ER with chief complain of SOB and rapid atrial fibrillation. The patient reports when she was on the phone this morning she was dyspneic and short of breath with conversation. This was new for her. She has been at [facility] for rehab and doing well. When the nurse did the vital signs this morning they found her heart rate high and blood pressure low. They gave her a 2nd dose of her prescribed Toprol XL 50 mg but her HR remained elevated in 140s. She reports a brief history of afib in the past that occurred during an ECT session and she has not been on any anticoagulation. She reports her right lower leg has been swollen since before the surgery and it is overall getting better. She reports the swelling of the knee itself and the redness around the surgical site is getting better as well. No fever or chills. She has been taking SQ lovenox for DVT ppx. MD complaint: knee injury Onset (ago): hour(s) Injury: Right: knee Severity: moderate Exacerbating factors: palpation Related Data Home Medications Medication Instructions Recorded Confirmed clonazepam 2 mg tablet 2 mg PO BID PRN 07/14/20 10/21/21 gabapentin 300 mg capsule 300 mg PO BEDTIME 07/14/20 10/21/21 metoprolol succinate 50 mg 50 mg PO DAILY 07/14/20 10/21/21 tablet,extended release 24 hr pantoprazole 40 mg tablet,delayed 40 mg PO DAILY 07/14/20 10/21/21 release prazosin 2 mg capsule 2 mg PO BEDTIME 07/14/20 10/21/21 venlafaxine 75 mg capsule,extended 75 mg PO DAILY 07/14/20 10/21/21 release 24 hr dextroamphetamine-amphetamine 15 1 tab PO DAILY tab 08/09/21 10/21/21 mg tablet hydroxyzine pamoate 25 mg capsule 25 mg PO DAILY cap 08/09/21 10/21/21 solifenacin 5 mg tablet 5 mg PO DAILY 08/09/21 10/21/21 acetaminophen 500 mg tablet 1,000 mg PO TID PRN 10/21/21 10/21/21 Previous Rx's Medication Instructions Recorded Neoprene wrist sleeve #1 ea 07/08/21 walker #1 ea 11/03/21 acetaminophen 325 mg tablet 650 mg PO Q6H PRN 30 Days #240 tab 11/04/21 aspirin 325 mg tablet 325 mg PO BID 42 Days #84 tab 11/04/21 dextroamphetamine-amphetamine 10 15 mg PO DAILY 21 Days #32 tab 11/04/21 mg tablet docusate sodium 100 mg capsule 100 mg PO BID 14 Days #28 cap 11/04/21 oxycodone 10 mg tablet 10 mg PO Q4H PRN 7 Days #42 tab 11/04/21 apixaban 5 mg tablet (Eliquis) 5 mg PO BID #60 tab 11/10/21 Allergies Allergy/AdvReac Type Severity Reaction Status Date / Time No Known Allergies Allergy Verified 10/28/21 11:18 [No Known Allergies*] Review of Systems Review of Systems: Constitutional: No Fever, No Chills ENT/Mouth: No sore throat, No Rhinorrhea, No Swallowing Difficulty Eyes: No Eye Pain, No Swelling, No Redness Cardiovascular: No Chest Pain, + SOB, No Orthopnea, No Edema Respiratory: No Cough, No Sputum, No Wheezing, No dyspnea Gastrointestinal: No Nausea, No Vomiting, No Diarrhea, No abdominal Pain, No Hematochezia, No Melena Genitourinary: No Dysuria, No Urinary Frequency, No Hematuria Musculoskeletal: No joint pain, No Myalgias Skin: No Skin Lesions, No rash Neuro: No Weakness, No Numbness, No Dizziness, No Headache Psych: No Anxiety/Panic, No Depression Heme/Lymph: No Bruising, No Lymphadenopathy Endocrine: No Polyuria, No Polydipsia PMFSH Past Medical History Medical History Abnormal gait Hx of basal cell carcinoma IBS (irritable bowel syndrome) Lumbar spinal stenosis Major depression, recurrent, chronic Osteoarthritis Osteopenia Paroxysmal atrial fibrillation Pure hypercholesterolemia Severe major depression without psychotic features Vitamin D deficiency Surgical History History of esophagogastroduodenoscopy (EGD) Hx of appendectomy Hx of breast biopsy Hx of colonoscopy Hx of hysterectomy Family History Family History Father No problems noted. Mother No problems noted. Social History Social History Are you a primary home care provider to a significant other at home: No Do you presently have visiting nurse or other home services: Yes ([employer] 4 hours per week) Patient Tobacco Use Status: Former Tobacco user Quit Date: 2000 Tobacco use type: Cigarette Advance Directives: No Advance Directives Information Provided: No Advance Directives Date on File: 09/19/16 service: No Current occupational status: retired Current occupation: rt handed Physical Exam Vital Signs: Vital Signs: Last Vital Signs Temp 98.3 F 11/10/21 17:10 Pulse 77 11/10/21 17:10 Resp 20 11/10/21 17:10 BP 145/70 H 11/10/21 17:10 Pulse Ox 96 11/10/21 17:10 BMI result Body Mass Index 42.3 Appearance: Alert. Oriented X3. No acute distress. Eyes: Pupils equal, round and reactive to light. ENT: Pharynx normal. Neck: Normal inspection. Neck supple. CVS: Normal heart rate and rhythm. Pulses normal. Respiratory: No respiratory distress. Breath sounds normal. Abdomen: [place], Soft and nontender. +BS x4 Skin: Skin warm and dry. Normal skin color. Normal skin turgor. No rashes. Extremities: Right knee with longitudial surgical scar with staple closure, t race erythema in the middle of the wound without surrounding fluctuance or drainage. Right calf swelling and posterior tenderness. NV intact distally. Neuro: Oriented X 3. No motor deficit. No sensory deficit. Course Course Course Narrative: 70-year-old who is postop day 8 from a right total knee replacement by Dr. Hennessy who presents to the ER with shortness of breath and new onset rapid at rial fibrillation at her rehab facility today. EMS reports heart rates were up into the 140s en route but now seems to be 80s and regular. She has RLE swelling and tenderness. Will need to r/o DVT and PE. She is not tachycardic or hypoxic on arrival. Reevaluation(s) Reevaluation #1: Right lower extremity Dopplers negative for DVT. Her lab work is unremarkable. She remains in sinus rhythm. Dressing was taken off of her right knee wound and it appears to be healing appropriately. There is minimal erythema with no pal pable fluctuance no drainage and no appearance of joint infection. Orthopedic PA Noemí Ramey informed that she is in the ER and will come evaluate her. Reevaluation #2: CTA is negative for PE. In discussing further with the patient she reports that her assembling machine operator Dr. Correia has recommended that she start anticoagulation for a history of paroxysmal AFib. She has repeatedly denied because she did not want to start another medication. We discussed the risk of stroke and her elevated risk score. After discussing the risks and benefits of anticoagulation the patient is in agreement to start anticoagulation today. Reached out to Dr. Correia who is in agreement as well. Will start on Eliquis. Prescription printed for discharge to [facility]. She remains in sinus rhythm here. Stable for discharge back to SNF. Consultations Consultation #1: Ortho - Noemí Ramey PA-C Consultation #2: Cards - Dr. Correia MDM - Extremity Injury (Lower) Lab Data Attestation: I reviewed the patient's lab results. Result diagrams: 11/10/21 15:10 11/10/21 15:10 Labs: Lab Results 11/10/21 11/10/21 11/10/21 Range/Units 15:10 15:10 15:10 WBC 14.4 H (4.8-10.8) X10*3/uL RBC 4.13 L (4.20-5.50) X10*6/uL Hgb 12.2 (12.0-16.0) g/dl Hct 38.4 (37.0-47.0) % MCV 93.0 (80.0-98.0) fL MCH 29.5 (27.0-33.0) pg MCHC 31.8 (31.0-35.0) g/dl RDW 12.7 (11.0-16.0) % Plt Count 353 D (160-400) X10*3/uL MPV 9.1 L (9.4-12.3) fL Immature Gran % (Auto) 1.0 H (0.0-0.4) % Neut % (Auto) 58.5 (45-73) % Lymph % (Auto) 28.4 (20-40) % [place] % (Auto) 10.6 (2-11) % Eos % (Auto) 1.1 (0-4) % Baso % (Auto) 0.4 (0-2) % Lymph # (Auto) 4.1 (1.2-4.9) X10*3/uL [place] # (Auto) 1.5 H (0.1-1.2) X10*3/uL Eos # (Auto) 0.2 (0.0-0.4) X10*3/uL Baso # (Auto) 0.1 (0.0-0.2) X10*3/uL Abs Immat Gran (auto) 0.15 H (0.00-0.03) X10*3/uL Absolute Neuts (auto) 8.4 H (2.0-8.3) x10*3/uL Absolute Nucleated RBC 0.000 (0.0-0.012) X10*3/uL Nucleated RBC % (auto) 0.0 (0.0-0.2) /100WBC Smear Tech's Comments VERIFIED PT 11.8 (9.9-13.0) SEC INR 1.0 (0.9-1.1) APTT 37.5 (24.1-38.0) SEC Sodium 140 (135-145) mmol/L Potassium 4.5 (3.3-5.1) mmol/L Chloride 103 (96-108) mmol/L Carbon Dioxide 31 H (22-29) mmol/L Anion Gap 11 L (12-20) BUN 19 H (9-16) mg/dL Creatinine 0.65 (0.5-1.4) mg/dL Estim Creat Clear Calc 98.6 Estimated GFR > 60 Random Glucose 106 (60-115) mg/dL Lactic Acid (0.5-2.0) mmol/L Calcium 9.7 (8.4-10.2) mg/dL Magnesium 2.2 (1.6-2.6) mg/dL Total Bilirubin 0.6 (0.0-1.0) mg/dL Direct Bilirubin 0.2 (0.0-0.5) mg/dL AST 14 (5-31) U/L ALT 14 (0-31) U/L Alkaline Phosphatase 108 (39-117) U/L B-Natriuretic Peptide (<100) pg/mL Total Protein 5.9 L (6.5-8.0) g/dL Albumin 3.3 L (3.5-5.0) g/dL COVID-19 (MANDY) (Negative) COVID-19 Clin Com 11/10/21 11/10/21 11/10/21 Range/Units 15:10 15:10 15:10 WBC (4.8-10.8) X10*3/uL RBC (4.20-5.50) X10*6/uL Hgb (12.0-16.0) g/dl Hct (37.0-47.0) % MCV (80.0-98.0) fL MCH (27.0-33.0) pg MCHC (31.0-35.0) g/dl RDW (11.0-16.0) % Plt Count (160-400) X10*3/uL MPV (9.4-12.3) fL Immature Gran % (Auto) (0.0-0.4) % Neut % (Auto) (45-73) % Lymph % (Auto) (20-40) % [place] % (Auto) (2-11) % Eos % (Auto) (0-4) % Baso % (Auto) (0-2) % Lymph # (Auto) (1.2-4.9) X10*3/uL [place] # (Auto) (0.1-1.2) X10*3/uL Eos # (Auto) (0.0-0.4) X10*3/uL Baso # (Auto) (0.0-0.2) X10*3/uL Abs Immat Gran (auto) (0.00-0.03) X10*3/uL Absolute Neuts (auto) (2.0-8.3) x10*3/uL Absolute Nucleated RBC (0.0-0.012) X10*3/uL Nucleated RBC % (auto) (0.0-0.2) /100WBC Smear Tech's Comments PT (9.9-13.0) SEC INR (0.9-1.1) APTT (24.1-38.0) SEC Sodium (135-145) mmol/L Potassium (3.3-5.1) mmol/L Chloride (96-108) mmol/L Carbon Dioxide (22-29) mmol/L Anion Gap (12-20) BUN (9-16) mg/dL Creatinine (0.5-1.4) mg/dL Estim Creat Clear Calc Estimated GFR Random Glucose (60-115) mg/dL Lactic Acid 0.8 (0.5-2.0) mmol/L Calcium (8.4-10.2) mg/dL Magnesium (1.6-2.6) mg/dL Total Bilirubin (0.0-1.0) mg/dL Direct Bilirubin (0.0-0.5) mg/dL AST (5-31) U/L ALT (0-31) U/L Alkaline Phosphatase (39-117) U/L B-Natriuretic Peptide 251 H (<100) pg/mL Total Protein (6.5-8.0) g/dL Albumin (3.5-5.0) g/dL COVID-19 (MANDY) Negative (Negative) COVID-19 Clin Com See Note ECG Data Attestation: I personally reviewed and interpreted this ECG as follows: ECG interpretation date: 11/10/21 ECG interpretation time: 16:32 Interpretation: Normal sinus rhythm, heart rate 77 beats per minute, normal FL interval, normal QTC, no ST segment elevations or depressions. Critical Care Time Critical Care Time Critical Care Time: No Discharge Plan Discharge Clinical Impression: Paroxysmal atrial fibrillation Patient Disposition: Home, Self-Care Instructions: A-fib (Atrial Fibrillation) (DC), Blood Thinners (ED) Additional Instructions: Your ultrasound did not show any blood clot in your leg and your CT scan did not show any blood clot in your lungs Start taking the prescribed blood thinner to help lower stroke risk STOP taking the lovenox shots Follow up with Dr. Correia Follow up with Dr. Hennessy If you develop new or worsening symptoms call 911 or come back to the ER for further evaluation. Prescriptions: New Eliquis 5 mg tablet 5 mg PO BID Qty: 60 0RF No Action (DME) walker Misc See Rx Instructions .MEDSUPPLY Qty: 1 0RF Rx Instructions: Folding Front wheeled walker acetaminophen 500 mg Tablet 1,000 mg PO TID PRN (Reason: Pain) 0RF docusate sodium 100 mg Capsule 100 mg PO BID 14 Days Qty: 28 0RF oxycodone 10 mg tablet 10 mg PO Q4H PRN (Reason: Pain, Moderate (Pain Scale 4-6) 7 Days Qty: 42 0RF aspirin 325 mg Tablet 325 mg PO BID 42 Days Qty: 84 0RF acetaminophen 325 mg Tablet 650 mg PO Q6H PRN (Reason: Pain, Mild (Pain Scale 1-3)) 30 Days Qty: 240 0RF dextroamphetamine-amphetamine 10 mg Tablet 15 mg PO DAILY 21 Days Qty: 32 0RF prazosin 2 mg capsule 2 mg PO BEDTIME 0RF clonazepam 2 mg tablet 2 mg PO BID PRN (Reason: Anxiety) 0RF venlafaxine 75 mg capsule,extended release 24hr 75 mg PO DAILY 0RF gabapentin 300 mg capsule 300 mg PO BEDTIME 0RF pantoprazole 40 mg tablet,delayed release (DR/EC) 40 mg PO DAILY 0RF metoprolol succinate 50 mg tablet extended release 24 hr 50 mg PO DAILY 0RF dextroamphetamine-amphetamine 15 mg tablet 1 tab PO DAILY 0RF hydroxyzine pamoate 25 mg capsule 25 mg PO DAILY 0RF solifenacin 5 mg tablet 5 mg PO DAILY 0RF (DME) Neoprene wrist sleeve See Rx Instructions .Route .MEDSUPPLY Qty: 1 0RF Rx Instructions: As directed Referrals: Higinio Hennessy MD [Physician] - 1 week (s/p right TKR) Brandt Correia MD [Physician] - 1 week (paroxysmal afib)
--- NOTE | 2021-11-10 14:16 | ECG_ITS ---
Test Reason : sob Blood Pressure : / mmHG Vent. Rate : 077 BPM Atrial Rate : 077 BPM P-R Int : 154 ms QRS Dur : 074 ms QT Int : 354 ms P-R-T Axes : 060 024 014 degrees QTc Int : 400 ms Normal sinus rhythm Septal infarct (cited on or before 28-MAR-2017) Abnormal ECG When compared with ECG of 21-JAN-2020 17:02, No significant change was found Referred By: Valerie Brooke Electronically Signed By:DEXTER TAYLOR MD
[2021-11-10 14:31] VITALS: BP 119/55; PULSE 78; RESP 19; TEMP 36.8; O2SAT 96
[2021-11-10 14:38] VITALS: BP 101/75; BP 119/55; PULSE 75; PULSE 82; RESP 18; TEMP 36.8; O2SAT 95; O2SAT 98; BMI 42.3
[2021-11-10 15:19] LABS: Basophils Absolute Auto 0.1 X10*3/uL (0.0-0.2); Basophils Percent Auto 0.4 % (0-2); Eosinophils Absolute Auto 0.2 X10*3/uL (0.0-0.4); Eosinophils Percent Auto 1.1 % (0-4); Hematocrit 38.4 % (37.0-47.0); Hemoglobin 12.2 g/dl (12.0-16.0); Imm Gran Abs Auto 0.15 X10*3/uL (0.00-0.03); Lymphocytes Absolute Auto 4.1 X10*3/uL (1.2-4.9); Lymphocytes Percent Auto 28.4 % (20-40); MANUAL DIFF FLAG SCAN; Mean Corpuscular HGB Conc 31.8 g/dl (31.0-35.0); Mean Corpuscular Hemoglobin 29.5 pg (27.0-33.0); Mean Platelet Volume 9.1 fL (9.4-12.3); Monocytes Absolute Auto 1.5 X10*3/uL (0.1-1.2); Monocytes Percent Auto 10.6 % (2-11); Neutrophils Absolute Auto 8.4 x10*3/uL (2.0-8.3); Neutrophils Percent Auto 58.5 % (45-73); Platelet Count 353 X10*3/uL (160-400); Red Blood Count 4.13 X10*6/uL (4.20-5.50); Red Cell Distribution Width 12.7 % (11.0-16.0); SCAN SMEAR FLAG 1; White Blood Count 14.4 X10*3/uL (4.8-10.8)
[2021-11-10 15:29] LABS: Lactic Acid 0.8 mmol/L (0.5-2.0)
[2021-11-10 15:33] LABS: Alanine Aminotransferase 14 U/L (0-31); Albumin Level 3.3 g/dL (3.5-5.0); Alkaline Phosphatase 108 U/L (39-117); Anion Gap 11 (12-20); Aspartate Amino Transferase 14 U/L (5-31); Bilirubin Direct 0.2 mg/dL (0.0-0.5); Bilirubin Total 0.6 mg/dL (0.0-1.0); Blood Urea Nitrogen 19 mg/dL (9-16); Calcium 9.7 mg/dL (8.4-10.2); Carbon Dioxide 31 mmol/L (22-29); Chloride 103 mmol/L (96-108); Creatinine Clr Calc Pharmacy 98.6; Estimated Glomerular Filt Rate > 60; Glucose Random 106 mg/dL (60-115); Magnesium 2.2 mg/dL (1.6-2.6); Potassium 4.5 mmol/L (3.3-5.1); Sodium 140 mmol/L (135-145); Total Protein 5.9 g/dL (6.5-8.0)
[2021-11-10 15:35] LABS: COVID-19 Test Negative (Negative)
[2021-11-10 15:37] LABS: B Type Natriuretic Peptide 251 pg/mL (<100)
[2021-11-10 15:54] LABS: SLIDE REVIEW VERIFIED
[2021-11-10] MEDS: iohexoL 350 MG/ML 100 ML INFUS..BTL IV (16:04)
[2021-11-10 16:22] LABS: Prothrombin Time 11.8 SEC (9.9-13.0)
[2021-11-10 16:25] LABS: Partial Thromboplastin Time 37.5 SEC (24.1-38.0)
[2021-11-10 17:10] VITALS: BP 145/70; PULSE 77; RESP 20; TEMP 36.8; O2SAT 96
--- NOTE | 2021-11-10 19:13 | PM.CNOR ---
History of Present Illness HPI Consult date: 11/10/21 Chief complaint: KNEE PAIN S/P TKR Narrative: Patient was brought to the ED this afternoon from Rehab due to tachycardia. She has a h/o Paroxysmal afib, only on ASA 81 mg at home. She is s/p RT TKA. She was discharged on ASA 325mg tabs bid but switched to lovenox 40 mg subq as of 11/08/21 due to gi upset. While in the ED, she had an US and CTA which was negative for DVT/PE. ED put her on Eliquis for afib and ortho was consulted to look at the knee as rehab was concerned for infection . Patient denied increased pain in the right knee. States she has been working with PT and has no concerns. Review of Systems Review of Systems: per [facility] Past Medical History Medical History Abnormal gait Hx of basal cell carcinoma IBS (irritable bowel syndrome) Lumbar spinal stenosis Major depression, recurrent, chronic Osteoarthritis Osteopenia Paroxysmal atrial fibrillation Pure hypercholesterolemia Severe major depression without psychotic features Vitamin D deficiency Family History Family History Father No problems noted. Mother No problems noted. Surgical History Surgical History History of esophagogastroduodenoscopy (EGD) Hx of appendectomy Hx of breast biopsy Hx of colonoscopy Hx of hysterectomy Social History Social History Are you a primary urgent care physician assistant to a significant other at home: No Do you presently have visiting nurse or other home services: Yes (AUTO GARAGE ATTENDANT 4 hours per week) Patient Tobacco Use Status: Former Tobacco user Quit Date: 2000 Tobacco use type: Cigarette Advance Directives: No Advance Directives Information Provided: No Advance Directives Date on File: 09/19/16 service: No Current occupational status: retired Current occupation: rt handed Meds Allergies Allergy/AdvReac Type Severity Reaction Status Date / Time No Known Allergies Allergy Verified 10/28/21 11:18 [No Known Allergies*] Home Medications Medication Instructions Recorded Confirmed Last Taken Type clonazepam 2 mg tablet 2 mg PO BID PRN 07/14/20 10/21/21 Unknown History gabapentin 300 mg capsule 300 mg PO BEDTIME 07/14/20 10/21/21 Unknown History metoprolol succinate 50 mg 50 mg PO DAILY 07/14/20 10/21/21 Unknown History tablet,extended release 24 hr pantoprazole 40 mg tablet,delayed 40 mg PO DAILY 07/14/20 10/21/21 Unknown History release prazosin 2 mg capsule 2 mg PO BEDTIME 07/14/20 10/21/21 Unknown History venlafaxine 75 mg capsule,extended 75 mg PO DAILY 07/14/20 10/21/21 Unknown History release 24 hr dextroamphetamine-amphetamine 15 1 tab PO DAILY tab 08/09/21 10/21/21 Unknown History mg tablet hydroxyzine pamoate 25 mg capsule 25 mg PO DAILY cap 08/09/21 10/21/21 Unknown History solifenacin 5 mg tablet 5 mg PO DAILY 08/09/21 10/21/21 Unknown History acetaminophen 500 mg tablet 1,000 mg PO TID PRN 10/21/21 10/21/21 Unknown History Physical Exam Vital Signs: Vital Signs: Last Vital Signs Temp 98.3 F 11/10/21 17:10 Pulse 77 11/10/21 17:10 Resp 20 11/10/21 17:10 BP 145/70 H 11/10/21 17:10 Pulse Ox 96 11/10/21 17:10 BMI result Body Mass Index 42.3 Extrem: Other: Right knee john intact. No erythema or joint effusion. She has full extension. Flexion to 80. Calf supple non tender. Results Labs Result Diagrams: 11/10/21 15:10 11/10/21 15:10 Labs: Abnormal lab results 11/10/21 11/10/21 11/10/21 Range/Units 15:10 15:10 15:10 WBC 14.4 H (4.8-10.8) X10*3/uL RBC 4.13 L (4.20-5.50) X10*6/uL MPV 9.1 L (9.4-12.3) fL Immature Gran % (Auto) 1.0 H (0.0-0.4) % [place] # (Auto) 1.5 H (0.1-1.2) X10*3/uL Abs Immat Gran (auto) 0.15 H (0.00-0.03) X10*3/uL Absolute Neuts (auto) 8.4 H (2.0-8.3) x10*3/uL Carbon Dioxide 31 H (22-29) mmol/L Anion Gap 11 L (12-20) BUN 19 H (9-16) mg/dL B-Natriuretic Peptide 251 H (<100) pg/mL Total Protein 5.9 L (6.5-8.0) g/dL Albumin 3.3 L (3.5-5.0) g/dL H & H 11/10/21 Range/Units 15:10 Hgb 12.2 (12.0-16.0) g/dl Hct 38.4 (37.0-47.0) % Coagulation 11/10/21 Range/Units 15:10 INR 1.0 (0.9-1.1) All other labs normal. Assessment and Plan (1) Status post total right knee replacement: Status: Acute Plan Continue with PT for ROM and quad strength . Continue with dvt prophylaxis and f.u as planned in 4 weeks with our office. Procedures Date of Service Date of Service: 11/10/21
[2021-11-10 21:18] VITALS: BP 139/69; PULSE 85; RESP 20; TEMP 37.1; O2SAT 94
[2021-11-10] MEDS: oxyCODONE HCl Immed Release 5 MG TABLET 10 MG PO (22:01)
[2021-11-10] MEDS: Morphine Sulfate 2 MG/ML CARTRIDGE IVPUSH (22:07)
== END 2021-11-10 22:30 | disposition home or self-care (01) ==
PROVIDERS: Physician Assistant; Emergency Provider Emergency Medicine
DX: I48.0 Paroxysmal atrial fibrillation (principal); R60.0 Localized edema; R06.02 Shortness of breath; Z96.651 Presence of right artificial knee joint; Z20.822 Contact with and (suspected) exposure to COVID-19; Z87.891 Personal history of nicotine dependence; Z79.899 Other long term (current) drug therapy
CPT/HCPCS: 36415; 71275; 80048; 80076; 83605; 83735; 83880; 85025; 85610; 85730; 87040; 87205; 87635; 93005; 93971; 96374; 99284; J2270; Q9967

== ENCOUNTER 2021-11-11 14:45 | Inpatient (IN) | payer MEDICARE, OTHER, SELFPAY ==
--- NOTE | 2021-11-11 | ECG_ITS ---
Test Reason : abnorma labs Blood Pressure : / mmHG Vent. Rate : 073 BPM Atrial Rate : 073 BPM P-R Int : 158 ms QRS Dur : 086 ms QT Int : 368 ms P-R-T Axes : 054 002 002 degrees QTc Int : 405 ms Normal sinus rhythm Normal ECG When compared with ECG of 10-NOV-2021 14:27, Criteria for Septal infarct are no longer Present Referred By: Mayi Lawrence Electronically Signed By:DEXTER TAYLOR MD
--- NOTE | 2021-11-11 14:50 | ED_ITS ---
HPI - Recheck/Abnormal Lab/Rx General Chief Complaint: Recheck/Abnormal Lab/Rx Stated Complaint: ABNORMAL LABS Time Seen by Provider: 11/11/21 14:47 Source: patient, EMS and old records reviewed Mode of arrival: EMS Limitations: no limitations History of Present Illness HPI narrative: 70-year-old female who is postop day 9 from a right total knee replacement by Dr. Hennessy presents back to the ER with positive blood culture. She was seen here yesterday for paroxysmal AFib, converted to normal sinus rhythm after additional p.o. Toprol. She was discharged on Eliquis per recommendations from her geospatial applications developer. Critical result of 1 of 2 blood cultures came back today with Gram-positive cocci in pairs and short chains. Orthopedics and Infectious Disease were made aware. Patient presents back for re-evaluation. She reports after discharge from the ER yesterday she had worsening stabbing pain on the medial aspect of her right knee. She denies any fever or chills. She denies any worsening redness or swelling of the knee joint. MD complaint: abnormal lab and needs IV antibiotics Initial visit (ago): day(s) (1) Returns today for: called because of abnormal lab/test Symptoms since prior visit: worsening pain Context: called for abnormal lab result Associated symptoms: none Related Data Home Medications Medication Instructions Recorded Confirmed clonazepam 2 mg tablet 2 mg PO BID PRN 07/14/20 10/21/21 gabapentin 300 mg capsule 300 mg PO BEDTIME 07/14/20 10/21/21 metoprolol succinate 50 mg 50 mg PO DAILY 07/14/20 10/21/21 tablet,extended release 24 hr pantoprazole 40 mg tablet,delayed 40 mg PO DAILY 07/14/20 10/21/21 release prazosin 2 mg capsule 2 mg PO BEDTIME 07/14/20 10/21/21 venlafaxine 75 mg capsule,extended 75 mg PO DAILY 07/14/20 10/21/21 release 24 hr dextroamphetamine-amphetamine 15 1 tab PO DAILY tab 08/09/21 10/21/21 mg tablet hydroxyzine pamoate 25 mg capsule 25 mg PO DAILY cap 08/09/21 10/21/21 solifenacin 5 mg tablet 5 mg PO DAILY 08/09/21 10/21/21 acetaminophen 500 mg tablet 1,000 mg PO TID PRN 10/21/21 10/21/21 Previous Rx's Medication Instructions Recorded Neoprene wrist sleeve #1 ea 07/08/21 walker #1 ea 11/03/21 acetaminophen 325 mg tablet 650 mg PO Q6H PRN 30 Days #240 tab 11/04/21 aspirin 325 mg tablet 325 mg PO BID 42 Days #84 tab 11/04/21 dextroamphetamine-amphetamine 10 15 mg PO DAILY 21 Days #32 tab 11/04/21 mg tablet docusate sodium 100 mg capsule 100 mg PO BID 14 Days #28 cap 11/04/21 oxycodone 10 mg tablet 10 mg PO Q4H PRN 7 Days #42 tab 11/04/21 apixaban 5 mg tablet (Eliquis) 5 mg PO BID #60 tab 11/10/21 Allergies Allergy/AdvReac Type Severity Reaction Status Date / Time No Known Allergies Allergy Verified 10/28/21 11:18 [No Known Allergies*] Review of Systems Review of Systems: Constitutional: No Fever, No Chills ENT/Mouth: No sore throat, No Rhinorrhea Cardiovascular: No Chest Pain, No SOB, No Orthopnea, + Edema Respiratory: No Cough, No Sputum, No Wheezing, No dyspnea Gastrointestinal: No Nausea, No Vomiting, No Diarrhea, No abdominal Pain Genitourinary: No Dysuria, No Urinary Frequency, No Hematuria Musculoskeletal: + joint pain, No Myalgias Skin: No Skin Lesions, No rash Neuro: No Weakness, No Numbness, No Dizziness, No Headache Psych: No Anxiety/Panic, No Depression Heme/Lymph: No Bruising, No Lymphadenopathy Endocrine: No Polyuria, No Polydipsia PMFSH Past Medical History Medical History Abnormal gait Hx of basal cell carcinoma IBS (irritable bowel syndrome) Lumbar spinal stenosis Major depression, recurrent, chronic Osteoarthritis Osteopenia Paroxysmal atrial fibrillation Pure hypercholesterolemia Severe major depression without psychotic features Vitamin D deficiency Surgical History History of esophagogastroduodenoscopy (EGD) Hx of appendectomy Hx of breast biopsy Hx of colonoscopy Hx of hysterectomy Family History Family History Father No problems noted. Mother No problems noted. 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 Oriented X3. No acute distress. Eyes: Pupils equal, round and reactive to light. ENT: Pharynx normal. Neck: Normal inspection. Neck supple. CVS: Normal heart rate and rhythm. Pulses normal. Respiratory: No respiratory distress. Breath sounds normal. Abdomen: Soft and nontender. +BS x4 Skin: Skin warm and dry. Normal skin color. Normal skin turgor. No rashes. Extremities: Right lower extremity with well appearing surgical scar with minimal erythema and warmth, no fluctuance or palpable fluid collections, no drainge at the site. limited ROM to 20 degrees. right lower leg swelling and tenderness of the calf unchanged Neuro: Oriented X 3. No motor deficit. No sensory deficit. Course Course Course Narrative: 70-year-old female with recent knee replacement presents to the ER for re- evaluation of abnormal blood work. One of 2 blood cultures yesterday grew Gram- positive cocci in pairs and short chains, concerning for possible strep bacteremia. Her wound does not appear to be infected and she appears nontoxic. She had a white blood cell count of 14.4 yesterday which is similar to her prior labs. Will repeat cultures labs today including inflammatory markers. Anticipate admission. Reevaluation(s) Reevaluation #1: Spoke with Dr. Cuevas - recommending admission and IV Rocephin. Spoke with Orthopedics - recommend holding off on imaging of the knee for now. does not appear to have fluid to attempt to drain. recommending admission to medicine for additional workup and management. Reevaluation #2: Medicine to admit. MDM - Recheck/Abnormal Lab/Rx Lab Data Result diagrams: 11/11/21 16:03 11/11/21 16:03 Labs: Lab Results 11/11/21 11/11/21 11/11/21 Range/Units 16:03 16:03 16:03 WBC 12.3 H (4.8-10.8) X10*3/uL RBC 3.99 L (4.20-5.50) X10*6/uL Hgb 11.8 L (12.0-16.0) g/dl Hct 37.4 (37.0-47.0) % MCV 93.7 (80.0-98.0) fL MCH 29.6 (27.0-33.0) pg MCHC 31.6 (31.0-35.0) g/dl RDW 12.8 (11.0-16.0) % Plt Count 339 (160-400) X10*3/uL MPV 8.8 L (9.4-12.3) fL Immature Gran % (Auto) 1.3 H (0.0-0.4) % Neut % (Auto) 59.9 (45-73) % Lymph % (Auto) 26.5 (20-40) % [place] % (Auto) 10.3 (2-11) % Eos % (Auto) 1.5 (0-4) % Baso % (Auto) 0.5 (0-2) % Lymph # (Auto) 3.3 (1.2-4.9) X10*3/uL [place] # (Auto) 1.3 H (0.1-1.2) X10*3/uL Eos # (Auto) 0.2 (0.0-0.4) X10*3/uL Baso # (Auto) 0.1 (0.0-0.2) X10*3/uL Abs Immat Gran (auto) 0.16 H (0.00-0.03) X10*3/uL Absolute Neuts (auto) 7.3 (2.0-8.3) x10*3/uL Absolute Nucleated RBC 0.000 (0.0-0.012) X10*3/uL Nucleated RBC % (auto) 0.0 (0.0-0.2) /100WBC PT 11.6 (9.9-13.0) SEC INR 1.0 (0.9-1.1) APTT 36.6 (24.1-38.0) SEC Sodium 137 (135-145) mmol/L Potassium 4.7 (3.3-5.1) mmol/L Chloride 101 (96-108) mmol/L Carbon Dioxide 31 H (22-29) mmol/L Anion Gap 10 L (12-20) BUN 18 H (9-16) mg/dL Creatinine 0.69 (0.5-1.4) mg/dL Estim Creat Clear Calc 104.5 Estimated GFR > 60 Random Glucose 124 H (60-115) mg/dL Calcium 9.8 (8.4-10.2) mg/dL Magnesium 2.4 (1.6-2.6) mg/dL Total Bilirubin 0.5 (0.0-1.0) mg/dL Direct Bilirubin 0.2 (0.0-0.5) mg/dL AST 14 (5-31) U/L ALT 15 (0-31) U/L Alkaline Phosphatase 121 H (39-117) U/L C-Reactive Protein 4.97 H (< or = 0.50) mg/dL Total Protein 6.1 L (6.5-8.0) g/dL Albumin 3.5 (3.5-5.0) g/dL COVID-19 ([facility]) (Negative) COVID-19 Clin Com 11/11/21 Range/Units 16:03 WBC (4.8-10.8) X10*3/uL RBC (4.20-5.50) X10*6/uL Hgb (12.0-16.0) g/dl Hct (37.0-47.0) % MCV (80.0-98.0) fL MCH (27.0-33.0) pg MCHC (31.0-35.0) g/dl RDW (11.0-16.0) % Plt Count (160-400) X10*3/uL MPV (9.4-12.3) fL Immature Gran % (Auto) (0.0-0.4) % Neut % (Auto) (45-73) % Lymph % (Auto) (20-40) % [place] % (Auto) (2-11) % Eos % (Auto) (0-4) % Baso % (Auto) (0-2) % Lymph # (Auto) (1.2-4.9) X10*3/uL [place] # (Auto) (0.1-1.2) X10*3/uL Eos # (Auto) (0.0-0.4) X10*3/uL Baso # (Auto) (0.0-0.2) X10*3/uL Abs Immat Gran (auto) (0.00-0.03) X10*3/uL Absolute Neuts (auto) (2.0-8.3) x10*3/uL Absolute Nucleated RBC (0.0-0.012) X10*3/uL Nucleated RBC % (auto) (0.0-0.2) /100WBC PT (9.9-13.0) SEC INR (0.9-1.1) APTT (24.1-38.0) SEC Sodium (135-145) mmol/L Potassium (3.3-5.1) mmol/L Chloride (96-108) mmol/L Carbon Dioxide (22-29) mmol/L Anion Gap (12-20) BUN (9-16) mg/dL Creatinine (0.5-1.4) mg/dL Estim Creat Clear Calc Estimated GFR Random Glucose (60-115) mg/dL Calcium (8.4-10.2) mg/dL Magnesium (1.6-2.6) mg/dL Total Bilirubin (0.0-1.0) mg/dL Direct Bilirubin (0.0-0.5) mg/dL AST (5-31) U/L ALT (0-31) U/L Alkaline Phosphatase (39-117) U/L C-Reactive Protein (< or = 0.50) mg/dL Total Protein (6.5-8.0) g/dL Albumin (3.5-5.0) g/dL COVID-19 ([facility]) Negative (Negative) COVID-19 Clin Com See Note Critical Care Time Critical Care Time Critical Care Time: Yes Total Critical Care Time: 38 Attestation: I have personally provided critical care time exclusive of time spent on separately billable procedures. Time includes review of lab data, radiology results, discussion with consultants, and monitoring for potential decompensation. Intervention performed as documented. Discharge Plan Discharge Clinical Impression: Bacteremia Patient Disposition: Admitted As Inpatient
[2021-11-11 15:01] VITALS: BP 114/40; PULSE 80; RESP 18; TEMP 36.8; O2SAT 99; BMI 43.4
[2021-11-11 16:12] LABS: MANUAL DIFF FLAG NO
[2021-11-11 16:15] LABS: Basophils Absolute Auto 0.1 X10*3/uL (0.0-0.2); Basophils Percent Auto 0.5 % (0-2); Eosinophils Absolute Auto 0.2 X10*3/uL (0.0-0.4); Eosinophils Percent Auto 1.5 % (0-4); Hematocrit 37.4 % (37.0-47.0); Hemoglobin 11.8 g/dl (12.0-16.0); Imm Gran Abs Auto 0.16 X10*3/uL (0.00-0.03); Imm Gran Pct Auto 1.3 % (0.0-0.4); Lymphocytes Absolute Auto 3.3 X10*3/uL (1.2-4.9); Lymphocytes Percent Auto 26.5 % (20-40); Mean Corpuscular HGB Conc 31.6 g/dl (31.0-35.0); Mean Corpuscular Hemoglobin 29.6 pg (27.0-33.0); Mean Corpuscular Volume 93.7 fL (80.0-98.0); Mean Platelet Volume 8.8 fL (9.4-12.3); Monocytes Absolute Auto 1.3 X10*3/uL (0.1-1.2); Monocytes Percent Auto 10.3 % (2-11); Neutrophils Absolute Auto 7.3 x10*3/uL (2.0-8.3); Neutrophils Percent Auto 59.9 % (45-73); Platelet Count 339 X10*3/uL (160-400); Red Blood Count 3.99 X10*6/uL (4.20-5.50); Red Cell Distribution Width 12.8 % (11.0-16.0); White Blood Count 12.3 X10*3/uL (4.8-10.8)
[2021-11-11 16:23] LABS: Prothrombin Time 11.6 SEC (9.9-13.0)
[2021-11-11 16:25] LABS: Partial Thromboplastin Time 36.6 SEC (24.1-38.0)
[2021-11-11 16:28] LABS: COVID-19 Test Negative (Negative)
[2021-11-11] MEDS: cefTRIAXone sodium 1 GM in 0.9 % Sodium Chloride 50 ML IV (16:28)
[2021-11-11 16:30] LABS: Alanine Aminotransferase 15 U/L (0-31); Albumin Level 3.5 g/dL (3.5-5.0); Alkaline Phosphatase 121 U/L (39-117); Anion Gap 10 (12-20); Aspartate Amino Transferase 14 U/L (5-31); Bilirubin Direct 0.2 mg/dL (0.0-0.5); Bilirubin Total 0.5 mg/dL (0.0-1.0); Blood Urea Nitrogen 18 mg/dL (9-16); C Reactive Protein 4.97 mg/dL (< or = 0.50); Calcium 9.8 mg/dL (8.4-10.2); Carbon Dioxide 31 mmol/L (22-29); Chloride 101 mmol/L (96-108); Creatinine Clr Calc Pharmacy 104.5; Estimated Glomerular Filt Rate > 60; Glucose Random 124 mg/dL (60-115); Magnesium 2.4 mg/dL (1.6-2.6); Potassium 4.7 mmol/L (3.3-5.1); Sodium 137 mmol/L (135-145); Total Protein 6.1 g/dL (6.5-8.0)
[2021-11-11 16:49] VITALS: BP 119/53; PULSE 80; RESP 19; TEMP 36.7; O2SAT 94
--- NOTE | 2021-11-11 16:52 | P.HPHOSP_ITS ---
History of Present Illness Date of Service: 11/11/21 Chief Complaint: Positive blood culture a 70 years old lady with PMH of AFib, GERD, anxiety among others who presents to the hospital as a blood culture that was sent on November 10 came back positive for Gram-positive cocci. The patient presented to the hospital yesterday for evaluation of palpitations. She was found in AFib with RVR that improved with usage of extra dose of Toprol and she was discharged home afterward. A blood culture 1 bottle g stain is positive for Gram-positive cocci in double suggestive of possible Streptococcus infection. She had recent knee surgery last week but denies any fever, chills, drainage or erythema around the area of the surgery. Images in the emergency were negative for any acute source of infection. Advanced for further evaluation and treatment. Review of Systems Review of Systems: No fever, chills or weakness No chest pain, palpitation No shortness of breath or coughing No abdominal pain, nausea or vomiting No urinary symptoms No any rash or wounds PMFSH Medical History Abnormal gait HTN (hypertension) Hx of basal cell carcinoma IBS (irritable bowel syndrome) Lumbar spinal stenosis Major depression, recurrent, chronic Osteoarthritis Osteopenia Paroxysmal atrial fibrillation Pure hypercholesterolemia Severe major depression without psychotic features Vitamin D deficiency Family History Father No problems noted. Mother No problems noted. Surgical History History of esophagogastroduodenoscopy (EGD) Hx of appendectomy Hx of breast biopsy Hx of colonoscopy Hx of hysterectomy Social History Are you a primary long term care social worker to a significant other at home: No Do you presently have visiting nurse or other home services: Yes (PHONE ENGINEER 4 hours per week) Patient Tobacco Use Status: Former Tobacco user Quit Date: 2000 Tobacco use type: Cigarette Advance Directives: Yes Advance Directives on File: Yes Advance Directives Date on File: 11/11/21 service: No Current occupational status: retired Current occupation: rt handed Meds Allergies Allergy/AdvReac Type Severity Reaction Status Date / Time No Known Allergies Allergy Verified 10/28/21 11:18 [No Known Allergies*] Active Medications: Current Medications Pharmacy Consult (Consult Rx Perform Med Rec) 1 each MISCELLANE ONCE PRN PRN Reason: Consult order Home Medications Medication Instructions Recorded Confirmed Last Taken Type clonazepam 2 mg tablet 2 mg PO BID PRN 07/14/20 11/11/21 Unknown History gabapentin 300 mg capsule 300 mg PO BEDTIME 07/14/20 11/11/21 Unknown History metoprolol succinate 50 mg 50 mg PO DAILY 07/14/20 11/11/21 Unknown History tablet,extended release 24 hr pantoprazole 40 mg tablet,delayed 40 mg PO DAILY@0630 07/14/20 11/11/21 Unknown History release prazosin 2 mg capsule 2 mg PO BEDTIME 07/14/20 11/11/21 Unknown History venlafaxine 75 mg capsule,extended 75 mg PO DAILY 07/14/20 11/11/21 Unknown History release 24 hr dextroamphetamine-amphetamine 15 1 tab PO DAILY tab 08/09/21 11/11/21 Unknown History mg tablet solifenacin 5 mg tablet 5 mg PO DAILY 08/09/21 11/11/21 Unknown History acetaminophen 500 mg tablet 1,000 mg PO TID 10/21/21 11/11/21 Unknown History bisacodyl 10 mg rectal suppository 10 mg [place] DAILY PRN 11/11/21 11/11/21 Unknown History hydroxyzine HCl 25 mg tablet 25 mg PO BEDTIME 11/11/21 11/11/21 Unknown History magnesium hydroxide 400 mg/5 mL 30 ml PO DAILY PRN 11/11/21 11/11/21 Unknown History oral suspension (Milk of Magnesia) melatonin 3 mg tablet 9 mg PO BEDTIME 11/11/21 11/11/21 Unknown History ondansetron HCl 4 mg tablet 4 mg PO Q6H PRN 11/11/21 11/11/21 Unknown History oxycodone 5 mg tablet 5 mg PO Q4H PRN 11/11/21 11/11/21 Unknown History polyethylene glycol 3350 17 gram 17 g PO DAILY 11/11/21 11/11/21 Unknown History oral powder packet sennosides 8.6 mg tablet (senna) 8.6 mg PO BEDTIME 11/11/21 11/11/21 Unknown History Physical Exam 2 Vital Signs and Narrative: Vital Signs: Last Vital Signs Temp 98.1 F 11/11/21 16:49 Pulse 80 11/11/21 16:49 Resp 19 11/11/21 16:49 BP 119/53 L 11/11/21 16:49 Pulse Ox 94 11/11/21 16:49 BMI result Body Mass Index 43.4 Const: Other: Constitutional : Alert, oriented, not in distress Neck : Normal inspection, Supple Cardiovascular : RRR, S1 S2, no lower extremity edema Respiratory : Good bilateral air entry, no crackles, wheezes or rhonchi Gastrointestinal: soft, lax, Normal bowel sounds, Non tender Skin : Warm, Dry , knee surgery site is clean with no drainage or erythema noted. Neurological : Alert & oriented x3, No focal deficit Results Labs CBC and Chem 7: 11/12/21 06:17 11/12/21 06:17 Labs: Laboratory Results - last 24 hr 11/11/21 11/11/21 11/11/21 16:03 16:03 16:03 MCV 93.7 MCH 29.6 MCHC 31.6 RDW 12.8 Plt Count 339 MPV 8.8 L Immature Gran % (Auto) 1.3 H Neut % (Auto) 59.9 Lymph % (Auto) 26.5 [place] % (Auto) 10.3 Eos % (Auto) 1.5 Baso % (Auto) 0.5 Lymph # (Auto) 3.3 [place] # (Auto) 1.3 H Eos # (Auto) 0.2 Baso # (Auto) 0.1 Abs Immat Gran (auto) 0.16 H Absolute Neuts (auto) 7.3 Absolute Nucleated RBC 0.000 Nucleated RBC % (auto) 0.0 PT 11.6 INR 1.0 APTT 36.6 Anion Gap 10 L Estim Creat Clear Calc 104.5 Estimated GFR > 60 Random Glucose 124 H Calcium 9.8 Magnesium 2.4 Total Bilirubin 0.5 Direct Bilirubin 0.2 AST 14 ALT 15 Alkaline Phosphatase 121 H C-Reactive Protein 4.97 H Total Protein 6.1 L Albumin 3.5 COVID-19 (MANDY) COVID-19 Clin Com 11/11/21 16:03 MCV MCH MCHC RDW Plt Count MPV Immature Gran % (Auto) Neut % (Auto) Lymph % (Auto) [place] % (Auto) Eos % (Auto) Baso % (Auto) Lymph # (Auto) [place] # (Auto) Eos # (Auto) Baso # (Auto) Abs Immat Gran (auto) Absolute Neuts (auto) Absolute Nucleated RBC Nucleated RBC % (auto) PT INR APTT Anion Gap Estim Creat Clear Calc Estimated GFR Random Glucose Calcium Magnesium Total Bilirubin Direct Bilirubin AST ALT Alkaline Phosphatase C-Reactive Protein Total Protein Albumin COVID-19 (MANDY) Negative COVID-19 Clin Com See Note Assessment and Plan (1) Positive blood culture: Status: Acute Plan a 70 years old lady with PMH of AFib, GERD, anxiety among others who presents to the hospital as a blood culture that was sent on November 10 came back positive for Gram-positive cocci. positive blood culture One bottle growing gram-positive cocci Pending final result and repeat cultures Start ceftriaxone IV Get ID evaluation Orthopedic team does not thing knee surgery is a source of infection Atrial fibrillation continue metoprolol Eliquis for anticoagulation Anxiety disorder Continue home medications GERD continue PPI DVT PPX Eliquis Quality Stroke Does the patient have a stroke diagnosis?: No VTE Prior VTE?: No VTE Risk Level:: Medical - moderate - high VTE Device Contraindication: Treatment Not Indicated VTE Drug Contraindication: N/A - Med Ordered
[2021-11-11 17:03] LABS: Erythrocyte Sedimentation Rate 39 MM/HR (0-20)
--- NOTE | 2021-11-11 17:21 | PHA.MEDREC ---
Pharmacy Consult ? Medication Reconciliation Pharmacy has completed the medication reconciliation. list from facility.
[2021-11-11] MEDS: oxyCODONE HCl Immed Release 5 MG TABLET 10 MG PO ×2 (18:17→21:57)
[2021-11-11 18:59] VITALS: BP 112/51; PULSE 76; RESP 18; O2SAT 92
[2021-11-11 19:21] VITALS: BP 112/51; PULSE 75; RESP 16
[2021-11-11] MEDS: Gabapentin 300 MG CAPSULE PO (21:01)
[2021-11-11] MEDS: Apixaban 5 MG TABLET PO (21:01)
[2021-11-11] MEDS: Acetaminophen 325 MG TABLET 650 MG PO (21:07)
[2021-11-11] MEDS: Prazosin HCL 1 MG CAPSULE 2 MG PO (21:08)
[2021-11-11 21:56] VITALS: BP 115/48; PULSE 80; RESP 12; TEMP 37.4; O2SAT 94
--- NOTE | 2021-11-12 01:23 | PC.NURSE ---
Report given to Elen on IMC. Pt going to bed 444.
[2021-11-12] MEDS: Acetaminophen 325 MG TABLET 650 MG PO (05:07)
[2021-11-12] MEDS: oxyCODONE HCl Immed Release 5 MG TABLET 10 MG PO ×2 (05:07→10:40)
[2021-11-12 05:40] VITALS: BP 138/59; PULSE 87; RESP 16; O2SAT 96
--- NOTE | 2021-11-12 06:17 | PC.NURSE ---
This rn took over patient's care 0000, patient alert and oriented x3, l/s clear, abd soft, vss. Reports mild pain in right knee at rest, reports pain increases with activity. Ambulated to bathroom with walker and supervised assist. Medicated for pain in right knee with prn oxycodone and tylenol per emar. Call reid within reach.
[2021-11-12] MEDS: clonazePAM 1 MG TABLET 2 MG PO (06:27)
[2021-11-12] MEDS: Omeprazole 40 MG CAPSULE.DR PO (06:27)
[2021-11-12 06:44] LABS: Hematocrit 41.4 % (37.0-47.0); Hemoglobin 12.3 g/dl (12.0-16.0); Mean Corpuscular HGB Conc 29.7 g/dl (31.0-35.0); Mean Corpuscular Hemoglobin 29.2 pg (27.0-33.0); Mean Corpuscular Volume 98.3 fL (80.0-98.0); Mean Platelet Volume 9.3 fL (9.4-12.3); Platelet Count 272 X10*3/uL (160-400); Red Blood Count 4.21 X10*6/uL (4.20-5.50); Red Cell Distribution Width 12.9 % (11.0-16.0); White Blood Count 10.7 X10*3/uL (4.8-10.8)
[2021-11-12 06:58] LABS: Anion Gap 14 (12-20); Blood Urea Nitrogen 18 mg/dL (9-16); Calcium 9.7 mg/dL (8.4-10.2); Carbon Dioxide 25 mmol/L (22-29); Chloride 104 mmol/L (96-108); Creatinine Clr Calc Pharmacy 112.6; Estimated Glomerular Filt Rate > 60; Glucose Random 96 mg/dL (60-115); Potassium 4.6 mmol/L (3.3-5.1); Sodium 138 mmol/L (135-145)
[2021-11-12 08:43] VITALS: BP 127/55; PULSE 92; RESP 16; O2SAT 95
[2021-11-12] MEDS: Amphetamine Mixed Salts 10 MG TABLET 15 MG PO (08:49)
[2021-11-12] MEDS: Apixaban 5 MG TABLET PO (08:50)
[2021-11-12 09:53] VITALS: BP 127/55; PULSE 92; O2SAT 95
--- NOTE | 2021-11-12 10:10 | P.PNIM_ITS ---
Subjective Subjective Date of Service: 11/12/21 Interval History: Seen and evaluated this morning Feels comfortable, no reported complaints overnight No fever or chills Review of Systems No fever, chills or weakness No chest pain, palpitation No shortness of breath or coughing No abdominal pain, nausea or vomiting No urinary symptoms No any rash or wounds Physical Exam Vital Signs: Vital Signs: Last Vital Signs Temp 99.3 F 11/11/21 21:56 Pulse 92 11/12/21 08:43 Resp 16 11/12/21 08:43 BP 127/55 L 11/12/21 08:43 Pulse Ox 95 11/12/21 08:43 BMI result Body Mass Index 43.4 Const: Other: Constitutional : Alert, oriented, not in distress Neck : Normal inspection, Supple Cardiovascular : RRR, S1 S2, no lower extremity edema Respiratory : Good bilateral air entry, no crackles, wheezes or rhonchi Gastrointestinal: soft, lax, Normal bowel sounds, Non tender Skin : Warm, Dry , knee surgery site is clean with no drainage or erythema noted. Neurological : Alert & oriented x3, No focal deficit Objective Data Active Medications Acetaminophen (Acetaminophen 325 Mg Tablet) 650 mg PO Q6H PRN PRN Reason: Pain, Mild (Pain Scale 1-3) Last Admin: 11/12/21 05:07 Dose: 650 mg Documented by: PAM Amphetamine/Dextroamphetamine (Amphetamine Mixed Salts 10 Mg Tablet) 15 mg PO DAILY [facility] Last Admin: 11/12/21 08:49 Dose: 15 mg Documented by: JOSEPH Apixaban (Apixaban 5 Mg Tablet) 5 mg PO BID [facility] Last Admin: 11/12/21 08:50 Dose: 5 mg Documented by: JOSEPH Clonazepam (Clonazepam 1 Mg Tablet) 2 mg PO BID PRN PRN Reason: Anxiety Last Admin: 11/12/21 06:27 Dose: 2 mg Documented by: PAM Gabapentin (Gabapentin 300 Mg Capsule) 300 mg PO BEDTIME [facility] Last Admin: 11/11/21 21:01 Dose: 300 mg Documented by: FELIPE Ceftriaxone Sodium 1 gm/ (Sodium Chloride) 50 mls @ 100 mls/hr IV Q24H [facility] Omeprazole (Omeprazole 40 Mg Capsule.) 40 mg PO DAILY@0630 [facility] Last Admin: 11/12/21 06:27 Dose: 40 mg Documented by: PAM Ondansetron HCl (Ondansetron Hcl 4 Mg/2 Ml Vial) 4 mg IVPUSH Q8H PRN PRN Reason: Nausea and Vomiting Oxycodone HCl (Oxycodone Hcl Immed Release 5 Mg Tablet) 10 mg PO Q4H PRN PRN Reason: Pain, Severe (Pain Scale 7-10) Last Admin: 11/12/21 05:07 Dose: 10 mg Documented by: PAM Pharmacy Consult (Consult Rx Perform Med Rec) 1 each MISCELLANE ONCE PRN PRN Reason: Consult order Prazosin HCl (Prazosin Hcl 1 Mg Capsule) 2 mg PO BEDTIME CECE; Protocol Last Admin: 11/11/21 21:08 Dose: 2 mg Documented by: FELIPE Labs CBC & Chem 7: 11/12/21 06:17 11/12/21 06:17 Labs: Laboratory Results - last 24 hr 11/11/21 11/11/21 11/11/21 16:03 16:03 16:03 MCV 93.7 MCH 29.6 MCHC 31.6 RDW 12.8 Plt Count 339 MPV 8.8 L Immature Gran % (Auto) 1.3 H Neut % (Auto) 59.9 Lymph % (Auto) 26.5 [place] % (Auto) 10.3 Eos % (Auto) 1.5 Baso % (Auto) 0.5 Lymph # (Auto) 3.3 [place] # (Auto) 1.3 H Eos # (Auto) 0.2 Baso # (Auto) 0.1 Abs Immat Gran (auto) 0.16 H Absolute Neuts (auto) 7.3 Absolute Nucleated RBC 0.000 Nucleated RBC % (auto) 0.0 ESR 39 H PT INR APTT Anion Gap 10 L Estim Creat Clear Calc 104.5 Estimated GFR > 60 Random Glucose 124 H Calcium 9.8 Magnesium 2.4 Total Bilirubin 0.5 Direct Bilirubin 0.2 AST 14 ALT 15 Alkaline Phosphatase 121 H C-Reactive Protein 4.97 H Total Protein 6.1 L Albumin 3.5 COVID-19 ([facility]AND[facility]) COVID-19 Clin Com 11/11/21 11/11/21 11/12/21 16:03 16:03 06:17 MCV 98.3 H MCH 29.2 MCHC 29.7 L RDW 12.9 Plt Count 272 MPV 9.3 L Immature Gran % (Auto) Neut % (Auto) Lymph % (Auto) [place] % (Auto) Eos % (Auto) Baso % (Auto) Lymph # (Auto) [place] # (Auto) Eos # (Auto) Baso # (Auto) Abs Immat Gran (auto) Absolute Neuts (auto) Absolute Nucleated RBC 0.000 Nucleated RBC % (auto) 0.0 ESR PT 11.6 INR 1.0 APTT 36.6 Anion Gap Estim Creat Clear Calc Estimated GFR Random Glucose Calcium Magnesium Total Bilirubin Direct Bilirubin AST ALT Alkaline Phosphatase C-Reactive Protein Total Protein Albumin COVID-19 (MANDY) Negative COVID-19 Clin Com See Note 11/12/21 06:17 MCV MCH MCHC RDW Plt Count MPV Immature Gran % (Auto) Neut % (Auto) Lymph % (Auto) [place] % (Auto) Eos % (Auto) Baso % (Auto) Lymph # (Auto) [place] # (Auto) Eos # (Auto) Baso # (Auto) Abs Immat Gran (auto) Absolute Neuts (auto) Absolute Nucleated RBC Nucleated RBC % (auto) ESR PT INR APTT Anion Gap 14 Estim Creat Clear Calc 112.6 Estimated GFR > 60 Random Glucose 96 Calcium 9.7 Magnesium Total Bilirubin Direct Bilirubin AST ALT Alkaline Phosphatase C-Reactive Protein Total Protein Albumin COVID-19 ([facility]ANDY) COVID-19 Clin Com Assessment and Plan (1) Positive blood culture: Status: Acute Plan a 70 years old lady with PMH of AFib, GERD, anxiety among others who presents to the hospital as a blood culture that was sent on November 10 came back positive for Gram-positive cocci. Streptococcus viridans bacteremia One bottle growing only pending repeat cultures continue ceftriaxone IV pending ID evaluation Orthopedic team input appreciated Atrial fibrillation continue metoprolol Eliquis for anticoagulation Anxiety disorder Continue home medications GERD continue PPI DVT PPX Eliquis Quality Stroke Does the patient have a stroke diagnosis?: No VTE Prior VTE?: No VTE Risk Level:: Medical - moderate - high VTE Device Contraindication: Treatment Not Indicated VTE Drug Contraindication: N/A - Med Ordered
--- NOTE | 2021-11-12 10:43 | P.DS_ITS ---
DS: Providers Provider Date of Service: 11/12/21 Date of admission: 11/11/21 17:06 Primary care physician: Sally Stewart MD Consults: 11/11/21 16:00 Consult to Infectious Diseases Stat Consulting Provider: Jaylene Cuevas Reason for consultation: possible Strep bacteremia Has provider been notified: Yes 11/11/21 17:05 Consult to Infectious Diseases Routine Consulting Provider: Jaylene Cuevas Reason for consultation: positive blood culture DS: Diagnosis Discharge Diagnosis (1) Positive blood culture: Status: Acute DS: Summary Hospital Course Hospital Course: Admission note HPI ?a 70 years old lady with PMH of AFib, GERD, anxiety among others who presents to the hospital as a blood culture that was sent on November 10 came back positive for Gram-positive cocci.? The patient presented to the hospital yesterday for evaluation of palpitations.? She was found in AFib with RVR that improved with usage of extra dose of Toprol and she was discharged home afterward. A blood culture 1 bottle g stain is positive for Gram-positive cocci in double suggestive of possible Streptococcus infection.? She had recent knee surgery last week but denies any fever, chills, drainage or erythema around the area of the surgery.? Images in the emergency were negative for any acute source of infection.? Advanced for further evaluation and treatment. Hospital course The patient was admitted and started IV antibiotic of ceftriaxone. Blood cultures followed and grew Streptococcus Viridans in 1 bottle only which considered as contaminant by infectious disease specialist who evaluated the pa tient. With recommendations to discontinue IV antibiotics at discharge the patient back to SNF with no need for antibiotics at all. Time Spent with Patient Time attestation: Total time spent providing and/or coordinating discharge services: Discharge coordination time: Less than 30 minutes Quality: Stroke Does the patient have a stroke diagnosis?: No Physical Exam Vital Signs: Vital Signs: Last Vital Signs Temp 99.3 F 11/11/21 21:56 Pulse 92 11/12/21 09:53 Resp 16 11/12/21 08:43 BP 127/55 L 11/12/21 09:53 Pulse Ox 95 11/12/21 09:53 BMI result Body Mass Index 43.4 Const: Other: Constitutional : Alert, oriented, not in distress Neck : Normal inspection, Supple Cardiovascular : RRR, S1 S2, no lower extremity edema Respiratory : Good bilateral air entry, no crackles, wheezes or rhonchi Gastrointestinal: soft, lax, Normal bowel sounds, Non tender Skin : Warm, Dry , knee surgery site is clean with no drainage or erythema noted. Neurological : Alert & oriented x3, No focal deficit DS: Data Data Completed and Pending Completed studies during hospitalization [Text1]: Procedures Replacement of Right Knee Joint with Synthetic Substitute, Cemented, Open Approach (11/02/21) Labs on day of discharge: Laboratory Results - last 24 hr 11/11/21 11/11/21 11/11/21 16:03 16:03 16:03 WBC 12.3 H RBC 3.99 L Hgb 11.8 L Hct 37.4 MCV 93.7 MCH 29.6 MCHC 31.6 RDW 12.8 Plt Count 339 MPV 8.8 L Immature Gran % (Auto) 1.3 H Neut % (Auto) 59.9 Lymph % (Auto) 26.5 [place] % (Auto) 10.3 Eos % (Auto) 1.5 Baso % (Auto) 0.5 Lymph # (Auto) 3.3 [place] # (Auto) 1.3 H Eos # (Auto) 0.2 Baso # (Auto) 0.1 Abs Immat Gran (auto) 0.16 H Absolute Neuts (auto) 7.3 Absolute Nucleated RBC 0.000 Nucleated RBC % (auto) 0.0 ESR 39 H PT INR APTT Sodium 137 Potassium 4.7 Chloride 101 Carbon Dioxide 31 H Anion Gap 10 L BUN 18 H Creatinine 0.69 Estim Creat Clear Calc 104.5 Estimated GFR > 60 Random Glucose 124 H Calcium 9.8 Magnesium 2.4 Total Bilirubin 0.5 Direct Bilirubin 0.2 AST 14 ALT 15 Alkaline Phosphatase 121 H C-Reactive Protein 4.97 H Total Protein 6.1 L Albumin 3.5 COVID-19 ([facility]) COVID-19 Clin Com 11/11/21 11/11/21 11/12/21 16:03 16:03 06:17 WBC 10.7 RBC 4.21 Hgb 12.3 Hct 41.4 MCV 98.3 H MCH 29.2 MCHC 29.7 L RDW 12.9 Plt Count 272 MPV 9.3 L Immature Gran % (Auto) Neut % (Auto) Lymph % (Auto) [place] % (Auto) Eos % (Auto) Baso % (Auto) Lymph # (Auto) [place] # (Auto) Eos # (Auto) Baso # (Auto) Abs Immat Gran (auto) Absolute Neuts (auto) Absolute Nucleated RBC 0.000 Nucleated RBC % (auto) 0.0 ESR PT 11.6 INR 1.0 APTT 36.6 Sodium Potassium Chloride Carbon Dioxide Anion Gap BUN Creatinine Estim Creat Clear Calc Estimated GFR Random Glucose Calcium Magnesium Total Bilirubin Direct Bilirubin AST ALT Alkaline Phosphatase C-Reactive Protein Total Protein Albumin COVID-19 ([facility]ANDY) Negative COVID-19 Clin Com See Note 11/12/21 06:17 WBC RBC Hgb Hct MCV MCH MCHC RDW Plt Count MPV Immature Gran % (Auto) Neut % (Auto) Lymph % (Auto) [place] % (Auto) Eos % (Auto) Baso % (Auto) Lymph # (Auto) [place] # (Auto) Eos # (Auto) Baso # (Auto) Abs Immat Gran (auto) Absolute Neuts (auto) Absolute Nucleated RBC Nucleated RBC % (auto) ESR PT INR APTT Sodium 138 Potassium 4.6 Chloride 104 Carbon Dioxide 25 Anion Gap 14 BUN 18 H Creatinine 0.64 Estim Creat Clear Calc 112.6 Estimated GFR > 60 Random Glucose 96 Calcium 9.7 Magnesium Total Bilirubin Direct Bilirubin AST ALT Alkaline Phosphatase C-Reactive Protein Total Protein Albumin COVID-19 ([facility]) COVID-19 Clin Com Discharge Plan Discharge Patient Disposition: Xfer SNF Discharge Diagnosis: positive blood cultures, contaminant Referrals: Glory Ramey PA-C [Physician Spinning Operator] - 11/18/21 Sally Stewart MD [Primary Care Provider] - 1 Week Discharge Medications: Continued (DME) walker Misc See Rx Instructions .MEDSUPPLY Qty: 1 0RF Rx Instructions: Folding Front wheeled walker sennosides [senna] 8.6 mg Tablet 8.6 mg PO BEDTIME 0RF polyethylene glycol 3350 17 gram Powder In Packet 17 g PO DAILY 0RF ondansetron HCl 4 mg Tablet 4 mg PO Q6H PRN (Reason: Nausea And Vomiting) 0RF melatonin 3 mg Tablet 9 mg PO BEDTIME 0RF magnesium hydroxide [Milk of Magnesia] 400 mg/5 mL Suspension 30 ml PO DAILY PRN (Reason: Constipation) 0RF bisacodyl 10 mg Suppository 10 mg [place] DAILY PRN (Reason: Constipation) 0RF hydroxyzine HCl 25 mg Tablet 25 mg PO BEDTIME 0RF oxycodone 5 mg Tablet 5 mg PO Q4H PRN (Reason: Pain (Scale Score 1-3)) 0RF acetaminophen 500 mg Tablet 1,000 mg PO TID 0RF docusate sodium 100 mg Capsule 100 mg PO BID 14 Days Qty: 28 0RF oxycodone 10 mg tablet 10 mg PO Q4H PRN (Reason: Pain, Moderate (Pain Scale 4-6) 7 Days Qty: 42 0RF Eliquis 5 mg tablet 5 mg PO BID Qty: 60 0RF prazosin 2 mg capsule 2 mg PO BEDTIME 0RF clonazepam 2 mg tablet 2 mg PO BID PRN (Reason: Anxiety) 0RF venlafaxine 75 mg capsule,extended release 24hr 75 mg PO DAILY 0RF gabapentin 300 mg capsule 300 mg PO BEDTIME 0RF pantoprazole 40 mg tablet,delayed release (DR/EC) 40 mg PO DAILY@0630 0RF metoprolol succinate 50 mg tablet extended release 24 hr 50 mg PO DAILY 0RF dextroamphetamine-amphetamine 15 mg tablet 1 tab PO DAILY 0RF solifenacin 5 mg tablet 5 mg PO DAILY 0RF (DME) Neoprene wrist sleeve See Rx Instructions .Route .MEDSUPPLY Qty: 1 0RF Rx Instructions: As directed Discharge Orders: Discharge Order (Routine); Ordered 11/12/21 Ordered By: Mayi Lawrence Diet: advance to usual diet Activity on Discharge: As tolerated Stand Alone Forms: Patient Portal Discharge page Care Plan Goals: Read below Health Concerns: Read below Plan of Treatment: Read below Assessment: you were admitted to the hospital for evaluation of positive blood cultures. The bacteria that grown was called Streptococcus viridans which is a contaminant. Discussed with infectious disease specialist who recommended no treatment needed at this point. to be discharged to the facility to continue physical therapy. * Physical Therapy for Total knee arthroplasty: gait training, ROM 0-12, quad strength * Limit stair climbing * No showering, no tub bath-keep dressing clean, dry and intact * No driving x6 weeks * Continue Eliquis * Follow up with [facility] in 2 weeks
--- NOTE | 2021-11-12 10:44 | PC.NURSE ---
Pt medicated per NOV. slight swelling and redness noted to the Right knee. Dressing replaced by ortho this am. Pt a/o ambulatory to the bathroom with ax1 and rolling walker. Pt c/o some increased pain the right knee upon ambulation. Pt medicated with PRN orders see NOV.
--- NOTE | 2021-11-12 12:29 | MHC.CM.PN ---
CM MET WITH PT IN ED OVERFLOW PT REPORTS AT BASELINE SHE LIVES WITH A FRIEND AND IS FULLY INDEPENDENT PT HAS A CANE AND WALKER AT HOME AND A LEASING DIRECTOR 4HRS PER WEEK PT HAS A HCP ON FILE AND HER PCP IS FERNANDO OLIVER PT IS COVID VACCINATED X 3 PT WAS RECENTLY DISCHARGED TO [facility] FOR STR HOWEVER HAD TO RETURN TO [facility] DUE TO A + BC. PT CONFIRMS THE PLAN IS TO RETURN TO [facility] TO COMPLETE STR [place]. PT WILL DC TODAY, BACK TO [facility] STR VIA CHAIR VAN
== END 2021-11-12 13:15 | disposition skilled nursing facility (03) | DRG 872 ==
LOC: HO.ED 16:29 → HO.EDOVER 17:18
PROVIDERS: Physician Assistant; Admitting Provider Student in an Organized Health Care Education/Training Program; Emergency Provider Emergency Medicine; PCP Internal Medicine; Visit Provider Student in an Organized Health Care Education/Training Program
DX: R78.81 Bacteremia (principal); B95.4 Other streptococcus as the cause of diseases classified elsewhere; K21.9 Gastro-esophageal reflux disease without esophagitis; I48.91 Unspecified atrial fibrillation; F41.9 Anxiety disorder, unspecified; Z20.822 Contact with and (suspected) exposure to COVID-19; Z79.01 Long term (current) use of anticoagulants; Z79.899 Other long term (current) drug therapy
CPT/HCPCS: 36415; 71275; 80048; 80076; 83605; 83735; 83880; 85025; 85027; 85610; 85652; 85730; 86140; 87040; 87205; 87635; 93005; 93971; 96365; 96374; 97162; 99284; 99285; 99291; J0696; J2270; Q9967

== ENCOUNTER → 2021-11-18 12:24 | Outpatient (BNVA) | payer MEDICARE, OTHER, SELFPAY | PROVIDERS: PCP Internal Medicine; Visit Provider Physician Assistant | DX: Z47.1 Aftercare following joint replacement surgery (principal); Z96.651 Presence of right artificial knee joint | CPT/HCPCS: 99212 ==

== ENCOUNTER 2021-11-18 12:27 | Outpatient (RCR) | payer MEDICARE, OTHER, SELFPAY | END 2022-01-04 13:11 | disposition home or self-care (01) | LOC: HO.PT 12:27 | PROVIDERS: Visit Provider Physician Assistant | DX: M17.11 Unilateral primary osteoarthritis, right knee (principal) ==

== ENCOUNTER → 2021-12-15 14:28 | Outpatient (BNVA) | payer MEDICARE, OTHER, SELFPAY | PROVIDERS: PCP Internal Medicine; Referring Provider Internal Medicine; Visit Provider Nurse Practitioner Family | DX: I48.0 Paroxysmal atrial fibrillation (principal); Z96.651 Presence of right artificial knee joint; Z79.01 Long term (current) use of anticoagulants; Z79.899 Other long term (current) drug therapy | CPT/HCPCS: 99212 ==

== ENCOUNTER → 2021-12-16 13:27 | Outpatient (BNVA) | payer MEDICARE, OTHER, SELFPAY | PROVIDERS: PCP Internal Medicine; Visit Provider Physician Assistant | DX: Z47.1 Aftercare following joint replacement surgery (principal); Z96.651 Presence of right artificial knee joint | CPT/HCPCS: 99212 ==

== ENCOUNTER 2021-12-22 12:56 | Outpatient (REF) | payer MEDICARE, OTHER, SELFPAY ==
--- NOTE | ~2021-12-22 | XR_ITS ---
EXAMINATION: XR KNEE, BILATERAL XR KNEE, RIGHT CLINICAL INFORMATION: Right knee pain. COMPARISON: None TECHNIQUE: AP bilateral knee standing. Right knee 2 views. FINDINGS: On AP bilateral knee exam there is uneven leg length with the right knee joint appearing slightly higher than the left knee. There is reduction in medial and lateral compartment joint space left knee with periarticular spurring. No acute fracture seen. There is a right knee prosthesis. Right knee: There is a total right knee prosthesis with prosthetic components in satisfactory alignment. There is no periprosthetic fracture or loosening. There is mild suprapatellar joint effusion suspected. XR/XR knee standing BI IMPRESSION: Uneven leg length with the right knee joint appearing slightly higher than the left knee on AP upright view. There is a total right knee prosthesis with prosthetic components appearing in satisfactory alignment. There is no periprosthetic loosening or fracture. Suspect mild suprapatellar joint effusion. Mild degenerative changes medial and lateral compartment left knee.
--- NOTE | ~2021-12-22 | XR_ITS ---
EXAMINATION: XR KNEE, BILATERAL XR KNEE, RIGHT CLINICAL INFORMATION: Right knee pain. COMPARISON: None TECHNIQUE: AP bilateral knee standing. Right knee 2 views. FINDINGS: On AP bilateral knee exam there is uneven leg length with the right knee joint appearing slightly higher than the left knee. There is reduction in medial and lateral compartment joint space left knee with periarticular spurring. No acute fracture seen. There is a right knee prosthesis. Right knee: There is a total right knee prosthesis with prosthetic components in satisfactory alignment. There is no periprosthetic fracture or loosening. There is mild suprapatellar joint effusion suspected. XR/XR knee RT 2V IMPRESSION: Uneven leg length with the right knee joint appearing slightly higher than the left knee on AP upright view. There is a total right knee prosthesis with prosthetic components appearing in satisfactory alignment. There is no periprosthetic loosening or fracture. Suspect mild suprapatellar joint effusion. Mild degenerative changes medial and lateral compartment left knee.
== END 2021-12-22 12:57 | disposition home or self-care (01) ==
LOC: HO.HOSX 12:56
PROVIDERS: Visit Provider Physician Assistant
DX: Z47.1 Aftercare following joint replacement surgery (principal); Z96.651 Presence of right artificial knee joint
CPT/HCPCS: 73560; 73565; 99212

== ENCOUNTER → 2021-12-23 11:00 | Outpatient (REF) | payer MEDICARE, OTHER, SELFPAY ==
--- NOTE | 2021-12-23 11:06 | HM_ITS ---
* Total monitoring time 3 days and 13 hours. * Underlying rhythm is sinus. Average rate 73/Min. Range 52 to 103/Min. * No atrial fibrillation or flutter or AV blocks or pauses. * Rare supraventricular ectopy with minimal burden. * Very rare ventricular ectopy with minimal burden. * No clear patient symptoms documented. MTDD
== END ==
LOC: HO.CARD 11:00
PROVIDERS: PCP Internal Medicine; Visit Provider Nurse Practitioner Family
DX: I48.0 Paroxysmal atrial fibrillation (principal)
CPT/HCPCS: 93242

== ENCOUNTER 2022-02-03 12:04 | Outpatient (REF) | payer MEDICARE, OTHER, SELFPAY ==
--- NOTE | ~2022-02-03 | XR_ITS ---
EXAMINATION: KNEE X-RAY CLINICAL INFORMATION: Pain COMPARISON: Previous exams most recent December 2021 TECHNIQUE: Standing AP view of both knees and lateral and sunrise view of the right knee FINDINGS: Right: Bone alignment is normal. No fracture or dislocation is seen. There is a 3 component right knee replacement in satisfactory position. There is a small joint effusion. Standing AP view of the left knee demonstrates degenerative change at the medial femoral tibial joint. XR/XR knee RT 2V IMPRESSION: Satisfactory appearance of right knee replacement. Degenerative changes of the medial left femoral tibial joint.
--- NOTE | ~2022-02-03 | XR_ITS ---
EXAMINATION: KNEE X-RAY CLINICAL INFORMATION: Pain COMPARISON: Previous exams most recent December 2021 TECHNIQUE: Standing AP view of both knees and lateral and sunrise view of the right knee FINDINGS: Right: Bone alignment is normal. No fracture or dislocation is seen. There is a 3 component right knee replacement in satisfactory position. There is a small joint effusion. Standing AP view of the left knee demonstrates degenerative change at the medial femoral tibial joint. XR/XR knee standing BI IMPRESSION: Satisfactory appearance of right knee replacement. Degenerative changes of the medial left femoral tibial joint.
== END 2022-02-03 12:05 | disposition home or self-care (01) ==
LOC: HO.HOSX 12:04
PROVIDERS: Visit Provider Orthopaedic Surgery
DX: Z47.1 Aftercare following joint replacement surgery (principal); Z96.651 Presence of right artificial knee joint; M17.12 Unilateral primary osteoarthritis, left knee; R26.9 Unspecified abnormalities of gait and mobility
CPT/HCPCS: 73560; 73565; 99212

== ENCOUNTER 2022-02-28 15:00 | Outpatient (RCR) | payer MEDICARE, OTHER, SELFPAY ==
--- NOTE | 2021-12-21 13:54 | MHC.PT.EP ---
[facility] [place] Office [place] Office [place] Office [address] Nicki Ibarra [address] [phone] F: [phone] F: [phone] F: [phone] F: [phone] Physical Therapy Plan of Care Date of Evaluation: Date of Surgery: 11/02/2021 Diagnosis: R TKA Assessment: Patient is a 71 year old female presenting to PT s/p R TKA on 11/02/2021. She presents today with impairments in pain, ROM, strength, and gait mechanics. Pt's current occupation is none, with baseline physical activities including ambulation, standing, ADLs, transfers, stair negotiation. Pt expresses long term care phlebotomist goal of improving standing and ambulation endurance, and is motivated to work towards this in PT. Clinical presentation today is most consistent with signs and sx associated with s/p R TKA and pt will benefit from skilled PT to address the following problems and impairments noted upon evaluation: pain, ROM, strength, and gait mechanics. These problems limit the patient with the following functional activities: standing, ambulation, stair negotiation, ADLs, and transfers. The prescribed treatment plan of care is medically necessary. Co-morbidities of HTN, afib, osteopenia were identified and taken into considerations of plan of care. Pt was educated on HEP, role of PT, prognosis, POC. Frequency and Duration: The patient will be seen 2 x week x 4 weeks Short Term Goals: Pt will demonstrate R knee flexion to 120 in 2 weeks. Pt will demonstrate R knee ext to 0 in 2 weeks. Pt will demonstrate 5/5 knee strength in 2 weeks. Welding Inspector Goals: Pt will demonstrate improved LEFI score by 9 points in 4 weeks for improved functional mobility. Pt will demonstrate ability to ambulate with LRD in 4 weeks with good gait mechanics. Pt will demonstrate ability to negotiate stairs with min to no pain in 4 weeks for improved access to her home. Pt will demonstrate ability to perform STS with min A from UE in 4 weeks for improved transfer efficiency. Treatment Plan: Modalities to reduce pain, spasms and effusion. Manual therapy to restore motion and function. Therapeutic exercise to improve strength and flexibility. Neuromuscular re-education for posture and balance. Therapeutic activities to return to functional activities of daily living. Electronically signed by: Sparkle Henson, PT, DPT, ATC Please sign and return to therapist. Thank you for your referral.
--- NOTE | 2022-02-28 16:05 | MHC.PT.DC ---
[facility] [place] Office [place] Office [place] Office [address] Nicki Ibarra [address] [phone] F: [phone] F: [phone] F: [phone] F: [phone] Physical Therapy Discharge Report Diagnosis: R TKA Date of Surgery: 11/02/2021 Date of Evaluation: 12/21/21 Date of Discharge: 02/28/22 Treatments to Date: 11 Cancellations to Date: 1 No Shows to Date: 0 Discharge Status: Improved Function Independent with HEP Discharge Summary: Pt has made progress since beginning skilled PT but recently appears to have reached a plateau with her functional status which could indicate her new functional baseline. She is still having discomfort that has been low level since the surgery. She has made progress towards her goals but has not met all of them. Pt functionally independent but still relying on an AD and having trouble with descending stairs. Despite working on these things in PT she has not demonstrated much further recent progress and due to this skilled PT is no longer indicated as max benefits have been provided. Again reviewed and discussed importance of compliance and continuation of HEP in order to make any possible further gains but at the very least maintain progress thus far. She verbalized understanding with this and also understands to continue attending follow ups with the surgeon. Pt is in agreement with d/c today. Electronically signed by: Sparkle Henson, PT, DPT, ATC Please sign and return to therapist. Thank you for your referral.
== END 2022-02-28 16:06 | disposition home or self-care (01) ==
LOC: HO.PTCHIC 15:00
PROVIDERS: PCP Internal Medicine; Visit Provider Physician Assistant
DX: Z96.651 Presence of right artificial knee joint (principal)
CPT/HCPCS: 97110; 97162; 97530

== ENCOUNTER → 2022-03-31 14:35 | Outpatient (BNVA) | payer MEDICARE, OTHER, SELFPAY | PROVIDERS: PCP Internal Medicine; Referring Provider Internal Medicine; Visit Provider Internal Medicine Cardiovascular Disease | DX: I48.0 Paroxysmal atrial fibrillation (principal) | CPT/HCPCS: 99212 ==

== ENCOUNTER 2022-05-04 17:22 | Emergency (ER) | payer MEDICARE, OTHER, SELFPAY ==
--- NOTE | ~2022-05-04 | XR_ITS ---
EXAMINATION: XR KNEE, RIGHT CLINICAL INFORMATION: Knee pain after fall COMPARISON: Right knee radiographs 02/03/2022 TECHNIQUE: Four views of the right knee. FINDINGS: Patient status post right total knee prosthesis. No definite fracture is seen and is no evidence of prosthetic loosening. Some well-defined corticated bony densities are seen around the knee joint, probably the sequela of surgery. XR/XR knee RT 3V IMPRESSION: No acute finding after the patient's fall.
--- NOTE | ~2022-05-04 | CT_ITS ---
EXAM: CT scan of the head and cervical spine. INDICATION: Reason for Exam fall, head strike TECHNIQUE: A noncontrast CT scan was performed from the skull base to the vertex. A noncontrast CT scan of the cervical spine was performed from the base of the skull through T1 at 2.5 mm and 1.25 mm collimation. Coronal and sagittal reformats were obtained at the acquisition workstation. This CT examination was performed using dose optimization techniques as appropriate, variously including the following: *Automated exposure control *Adjustment of mA and/or kV according to patient size (this includes techniques or standardized protocols for targeted exams where dose is matched to indication/reason for exam; i.e. extremities or head) *Use of iterative reconstruction technique DLP: 712 and 678 mGy-cm COMPARISON: 09/19/2016 FINDINGS: Head: There is no evidence of acute intracranial hemorrhage or territorial infarction. Bridges-white matter differentiation is preserved. No abnormal mass effect or midline shift. No extra-axial fluid collections. No abnormal attenuation is demonstrated within the brain parenchyma. Scattered periventricular and deep white matter hypodensities consistent with microangiopathy. The ventricles and sulcal spaces are proportional without hydrocephalus. Proportional prominence of the ventricles and sulcal spaces. No acute osseous or soft tissue abnormalities. The mastoid air cells and visualized portions of the paranasal sinuses are well aerated. Cervical Spine: The atlantooccipital and atlantoaxial articulations remain intact. Straightening of the normal cervical lordosis. Minor 1-2 (C2-C3 likely within normal variation. Notable disc space narrowing throughout the mid and lower cervical spine without evidence for any fracture or subluxation. Otherwise, there is anatomic alignment of the vertebral bodies and posterior elements. No evidence of acute fracture or subluxation. There is no prevertebral soft tissue swelling. The thyroid gland and remaining cervical soft tissues are normal in appearance. The lung apices demonstrate no abnormalities. CT/CT cervical spine wo IV con IMPRESSION: No acute intracranial pathology. No acute fracture subluxation cervical spine.
[2022-05-04 17:28] VITALS: BP 113/51; BP 153/84; PULSE 83; PULSE 92; RESP 16; TEMP 36.9; O2SAT 95; O2SAT 96; BMI 39.6
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
[2022-05-04 18:18] VITALS: BP 115/70; PULSE 62; RESP 16; TEMP 36.6; O2SAT 97
[2022-05-04 18:45] LABS: Hematocrit 44.1 % (37.0-47.0); Hemoglobin 14.1 g/dl (12.0-16.0); Mean Corpuscular Hemoglobin 28.6 pg (27.0-33.0); Mean Corpuscular Volume 89.5 fL (80.0-98.0); Mean Platelet Volume 9.1 fL (9.4-12.3); Platelet Count 243 X10*3/uL (160-400); Red Blood Count 4.93 X10*6/uL (4.20-5.50); Red Cell Distribution Width 14.2 % (11.0-16.0); White Blood Count 9.6 X10*3/uL (4.8-10.8)
[2022-05-04 18:58] LABS: Anion Gap 17 (12-20); Blood Urea Nitrogen 13 mg/dL (9-16); Calcium 9.3 mg/dL (8.4-10.2); Carbon Dioxide 23 mmol/L (22-29); Chloride 102 mmol/L (96-108); Estimated Glomerular Filt Rate > 60; Glucose Random 95 mg/dL (60-115); Potassium 4.6 mmol/L (3.3-5.1); Sodium 137 mmol/L (135-145)
[2022-05-04 19:01] LABS: COVID-19 Test Negative (Negative); IDNOW Serial# 55D5AD1C
[2022-05-04 20:00] VITALS: BP 113/63; PULSE 93; RESP 16; TEMP 36.6; O2SAT 97
[2022-05-04 20:11] LABS: Appearance Urine Clear; Color Urine Straw; Glucose Urine UA Negative (Negative); Leukocyte Esterase Urine Negative (Negative); Nitrite Urine Negative (Negative); PH 7.5 (5.0-9.0); Specific Gravity - Urine <= 1.005 (1.005-1.025); Urine Blood Negative (Negative); Urine Ketones Negative (Negative); Urine Protein Negative (Neg-Trace)
--- NOTE | 2022-05-04 20:13 | PC.NURSE ---
PATIENT WAS GIVEN DINNER ATE 100 % AND DRANK 480 ML JUICE .
--- NOTE | 2022-05-04 20:19 | MHC.CM.ED ---
Addendum entered by Shaneka Li 05/04/22 20:32: Pt uses a cane. Pt denies any SI/HI. Just needed to vent. Denies any need to speak with psych/care team. Pt working on ride home. Pt ambulated with steady gait to BR. CM will follow for d/c needs. Original Note: CM met with patient at request of Giselle KYLE. Pt is medically cleared for discharge. Pt lives with partner of 30 years. HCP on file. No services. Covid negative. Pt is very teary with CM during interview. Pt just received news yesterday that her partner has been diagnosed with Alcoholic dementia. Pt is very upset about new diagnosis by new neurology. Pt is worried about future. Pt is safe at home, although patient [place]. States her partner is able to care for himself, cooks, cleans and completes all ADL's. Pt tells CM she has a therapist who she has an appointment with on Monday. Pt can call her friend to pick her up. Has many supports. Pt is happy that all labs and xrays are negative. Pt actually spoke more about her partner, than herself. Pt feels well to go home. Above discussed with Giselle KYLE. Pt has no CM needs at this time. She just needed to talk and have someone listen.
== END 2022-05-04 20:51 | disposition home or self-care (01) ==
PROVIDERS: Nurse Practitioner Family; Emergency Provider Student in an Organized Health Care Education/Training Program
DX: S09.90XA Unspecified injury of head, initial encounter (principal); S89.91XA Unspecified injury of right lower leg, initial encounter; R51.9 Headache, unspecified; M54.2 Cervicalgia; M25.561 Pain in right knee; W01.10XA Fall on same level from slipping, tripping and stumbling with subsequent striking against unspecified object, initial encounter; Y93.9 Activity, unspecified; Y92.009 Unspecified place in unspecified non-institutional (private) residence as the place of occurrence of the external cause; Y99.9 Unspecified external cause status; Z20.822 Contact with and (suspected) exposure to COVID-19; Z79.899 Other long term (current) drug therapy; Z87.891 Personal history of nicotine dependence
CPT/HCPCS: 70450; 72125; 73562; 80048; 81003; 85027; 87635; 99284

== ENCOUNTER → 2022-05-06 10:26 | Outpatient (BNVA) | payer MEDICARE, OTHER, SELFPAY | PROVIDERS: PCP Internal Medicine; Visit Provider Orthopaedic Surgery | DX: M17.12 Unilateral primary osteoarthritis, left knee (principal); R26.9 Unspecified abnormalities of gait and mobility; Z96.651 Presence of right artificial knee joint | CPT/HCPCS: 99212 ==

== ENCOUNTER 2022-08-10 05:11 | Emergency (ER) | payer MEDICARE, OTHER, SELFPAY ==
--- NOTE | 2022-08-10 | ECG_ITS ---
Test Reason : FALL Blood Pressure : / mmHG Vent. Rate : 104 BPM Atrial Rate : 104 BPM P-R Int : 154 ms QRS Dur : 086 ms QT Int : 324 ms P-R-T Axes : 063 031 017 degrees QTc Int : 426 ms Sinus tachycardia Possible Left atrial enlargement Nonspecific ST abnormality Abnormal ECG When compared with ECG of 11-NOV-2021 17:22, No significant change was found Referred By: Generic ED Physician Electronically Signed By:DEXTER TAYLOR MD
--- NOTE | ~2022-08-10 | XR_ITS ---
EXAMINATION: XR CHEST CLINICAL INFORMATION: Low oxygen saturation. COMPARISON: CT angiography chest 11/10/2021. Chest radiograph 02/10/2017. TECHNIQUE: Frontal view of the chest was obtained. FINDINGS: Normal appearance of the cardiomediastinal structures. Pleura no focal pulmonary consolidation. Mild pulmonary vascular cephalization. Mild perivascular indistinctness. XR/XR chest 1V IMPRESSION: Finding suspicious for mild pulmonary vascular congestion. No focal pulmonary consolidation.
[2022-08-10 05:20] VITALS: BP 119/60; PULSE 105; RESP 20; TEMP 37.7; O2SAT 89; BMI 35.2
[2022-08-10 05:25] VITALS: O2SAT 93
[2022-08-10 05:35] LABS: MANUAL DIFF FLAG NO
[2022-08-10 05:36] LABS: Basophils Percent Auto 0.3 % (0-2); Eosinophils Percent Auto 0.1 % (0-4); Hemoglobin 13.4 g/dl (12.0-16.0); Imm Gran Abs Auto 0.05 X10*3/uL (0.00-0.03); Imm Gran Pct Auto 0.5 % (0.0-0.4); Lymphocytes Absolute Auto 0.4 X10*3/uL (1.2-4.9); Lymphocytes Percent Auto 3.7 % (20-40); Mean Corpuscular HGB Conc 32.7 g/dl (31.0-35.0); Mean Corpuscular Hemoglobin 29.6 pg (27.0-33.0); Mean Corpuscular Volume 90.7 fL (80.0-98.0); Mean Platelet Volume 9.3 fL (9.4-12.3); Monocytes Absolute Auto 0.8 X10*3/uL (0.1-1.2); Monocytes Percent Auto 7.8 % (2-11); Neutrophils Absolute Auto 8.8 x10*3/uL (2.0-8.3); Neutrophils Percent Auto 87.6 % (45-73); Platelet Count 226 X10*3/uL (160-400); Red Blood Count 4.52 X10*6/uL (4.20-5.50)
[2022-08-10 05:45] LABS: INTERNATIONAL NORM RATIO 1.2 (0.9-1.1); Prothrombin Time 13.5 SEC (10.0-13.1)
[2022-08-10 05:54] LABS: Alanine Aminotransferase 11 U/L (0-31); Albumin Level 3.9 g/dL (3.5-5.0); Alkaline Phosphatase 114 U/L (39-117); Anion Gap 12 (12-20); Aspartate Amino Transferase 16 U/L (5-31); Bilirubin Total 0.4 mg/dL (0.0-1.0); Blood Urea Nitrogen 10 mg/dL (9-16); Calcium 9.3 mg/dL (8.4-10.2); Carbon Dioxide 27 mmol/L (22-29); Chloride 100 mmol/L (96-108); Creatinine Clr Calc Pharmacy 91.8; Estimated Glomerular Filt Rate > 60; Glucose Random 111 mg/dL (60-115); Sodium 135 mmol/L (135-145); Total Protein 6.4 g/dL (6.5-8.0)
[2022-08-10 06:13] LABS: Influenza A PCR POSITIVE (Negative); Influenza B PCR NEGATIVE (Negative); Resp Syncy Virus RNA Qual PCR NEGATIVE (Negative); SARS COV2 PCR INHOUSE NEGATIVE (Negative)
[2022-08-10 07:23] VITALS: BP 125/51; PULSE 103; RESP 15; TEMP 36.9; O2SAT 96
--- NOTE | 2022-08-10 08:24 | ED_ITS ---
HPI - General Adult General Chief complaint: Fall Stated complaint: mechanical fall, dizziness Time Seen by Provider: 08/10/22 08:21 Source: patient and EMS Mode of arrival: EMS Limitations: no limitations History of Present Illness HPI narrative: Patient is a 71 year old assigned female] at with a history of a-fib presenting to the emergency department today with a cough and a fall. Patient states that she has been feeling unwell the last few days with a cough when she took some delysm which made her dizzy, and she fell. Patient denies hitting her head with the incident. Patient denies any loss of consciousness with the incident. Patient denies any dizziness, lightheadedness, abdominal pain, nausea, vomiting, fever, chills, blurry vision, double vision, loss of vision, chest pain, difficulty breathing, shortness of breath, back pain, night sweats, pain with urination, increased urinary frequency, increased urinary urgency, blood in her urine or stool, syncope or a near syncopal episode, bowel incontinence, bladder incontinence, bowel retention, bladder retention, or any other complaints at this time. Onset (ago): hour(s) Severity: mild Severity scale (1-10): 2 Relieving factors: none Exacerbating factors: none Associated symptoms: cough Treatments prior to arrival: other (delsym) Related Data Home Medications Medication Instructions Recorded Confirmed clonazepam 2 mg tablet 2 mg PO BID PRN Anxiety 07/14/20 03/31/22 gabapentin 300 mg capsule 300 mg PO BEDTIME 07/14/20 03/31/22 metoprolol succinate 50 mg 50 mg PO DAILY 07/14/20 03/31/22 tablet,extended release 24 hr pantoprazole 40 mg tablet,delayed 40 mg PO DAILY@0630 07/14/20 03/31/22 release prazosin 2 mg capsule 2 mg PO BEDTIME 07/14/20 03/31/22 venlafaxine 75 mg capsule,extended 75 mg PO DAILY 07/14/20 03/31/22 release 24 hr dextroamphetamine-amphetamine 15 1 tab PO DAILY 08/09/21 03/31/22 mg tablet solifenacin 5 mg tablet 5 mg PO DAILY 08/09/21 03/31/22 acetaminophen 500 mg tablet 1,000 mg PO TID 10/21/21 03/31/22 magnesium hydroxide 400 mg/5 mL 30 ml PO DAILY PRN Constipation 11/11/21 03/31/22 oral suspension (Milk of Magnesia) melatonin 3 mg tablet 9 mg PO BEDTIME 11/11/21 03/31/22 cholecalciferol (vitamin D3) 25 25 mcg PO DAILY 12/15/21 03/31/22 mcg (1,000 unit) capsule Previous Rx's Medication Instructions Recorded Neoprene wrist sleeve #1 ea 07/08/21 walker #1 ea 11/25/21 walker #1 ea 06/02/22 apixaban 5 mg tablet (Eliquis) 5 mg PO BID #60 tabs 06/14/22 Allergies Allergy/AdvReac Type Severity Reaction Status Date / Time No Known Allergies Allergy Verified 05/06/22 10:36 [No Known Allergies*] Review of Systems Constitutional: Constitutional: Reports no additional constitutional complaints, Denies chills, Denies fever(s) and Denies night sweats Eyes: Eyes: Reports no additional eye complaints, Denies blurry vision, Denies change in vision, Denies diplopia, Denies eye discharge, Denies loss of vision and Denies eye pain ENT: Denies dizziness Cardiovascular: Cardiovascular: Reports no additional cardiovascular complaints, Denies chest pain, Denies lightheadedness, Denies Loss of Consciousness and Denies dyspnea Respiratory: Respiratory: Reports no additional respiratory complaints, Reports cough and Denies dyspnea Gastrointestinal: Gastrointestinal: Reports no additional gastrointestinal complaints, Denies abdominal pain, Denies melena, Denies hematochezia, Denies change in bowel habits and Denies change in stool character Genitourinary: Genitourinary: Denies hematuria, Denies urinary frequency, Denies dysuria, Denies urinary incontinence, Denies urinary hesitancy and Denies urinary urgency Musculoskeletal: Musculoskeletal: Reports no additional musculoskeletal complaints, Denies numbness and Denies tingling Comments: 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 Source: old records reviewed Medical History Abnormal gait Arthritis of left knee Gait disturbance HTN (hypertension) Hx of basal cell carcinoma IBS (irritable bowel syndrome) Lumbar spinal stenosis Major depression, recurrent, chronic Osteoarthritis Osteopenia Paroxysmal atrial fibrillation Pure hypercholesterolemia Severe major depression without psychotic features Vitamin D deficiency Surgical History History of esophagogastroduodenoscopy (EGD) Hx of appendectomy Hx of breast biopsy Hx of colonoscopy Hx of hysterectomy Family History Family History Father No problems noted. Mother No problems noted. Social History Social History Are you a primary long term care phlebotomist to a significant other at home: No Do you presently have visiting nurse or other home services: Yes ([employer] 4 hours per week) Patient Tobacco Use Status: Former Tobacco user Quit Date: 2000 Tobacco use type: Cigarette Smoked in Last 30 Days: No Advance Directives: Yes Advance Directives on File: Yes Advance Directives Date on File: 11/11/21 service: No Current occupational status: retired Current occupation: rt handed Physical Exam ED Vital Signs: Vital Signs - 24 hr 08/10/22 05:20 08/10/22 05:25 08/10/22 07:23 Temperature 99.9 F 98.4 F Pulse Rate 105 H 103 H Respiratory Rate 20 15 Blood Pressure 119/60 125/51 L Pulse Oximetry 89 L 93 96 Oxygen Delivery Method Room Air Nasal Cannula Nasal Cannula Oxygen Flow Rate 2 2 BMI result Body Mass Index 35.2 Const General: cooperative, no acute distress, alert and awake Nutritional Appearance: well nourished Orientation/consciousness: patient oriented x3 Limitations: no limitations HENMT Head: Yes normal to inspection and Yes atraumatic Ears: hearing grossly normal bilaterally and external ears normal General nose exam: Normal external nose present, no nasal discharge noted and no epistaxis Face and sinus: Yes normal facial exam, No abrasion and No laceration Mouth: Normal oral and palatal mucosa present, no drooling and no muffled voice Eyes General: appearance normal, both eyes and all related structures Periorbital: periorbital findings normal Eyelids: Yes eyelids normal Conjunctivae: conjunctivae normal Pupils: Equal, round and reactive pupils present EOM: EOMs intact bilaterally Neck Neck: Yes normal visual inspection, Yes full ROM and Yes no lymphadenopathy Chest Chest palpation & inspection: normal inspection of the chest Resp Effort & Inspection: normal respiratory effort and able to speak in complete sentences Auscultation: clear to auscultation bilaterally Cardio Rate: regular rate Rhythm: regular rhythm GI Inspection: Yes normal to inspection Neuro General: patient oriented x3 and moves all extremities Cranial nerves: Yes Equal, round and reactive pupils present Cognition (Neuro): normal cognition Motor exam (neuro): 5/5 motor strength present throughout Sensory Exam: Normal double simultaneous stimulation for sensation Coordination: [id number] test normal Extrem General: Yes normal to inspection, Yes full ROM and Yes capillary refill normal Psych Appearance: grossly normal Mental Status: mental status grossly normal Affect: normal affect Attitude: cooperative Thought process: Normal thought process present Thought content: Normal thought content present Insight: Good insight present (Psych) Medical Decision Making Medical Decision Making MDM Narrative: Patient is a 71 year old assigned female at with a history of atrial fib and bilateral wrist arthritis presenting to the emergency department today with a cough and after having a fall. Patient's physical exam was unremarkable. Patient's blood work was unremarkable. Patient's EKG was unremarkable. Patient's chest x-ray showed no acute process. Patient's influenza swab was positive. I explained my physical exam findings as well as all test results to the patient. I answered all questions asked by the patient. I stressed the importance of the patient taking her medication as prescribed. I stressed the importance of the patient following up with her primary care provider. I stressed the importance of the patient returning to the emergency department immediately if her symptoms were to worsen or if she were to develop any dizziness, shortness of breath, difficulty breathing, chest pain, blurry vision, loss of vision, nausea, vomiting, abdominal pain, fever, chills, back pain, or any other complaints. Patient verbalized agreement and understanding with this treatment plan and discharge. Differential Diagnoses: Differential diagnosis Differential Diagnosis: The differential diagnosis associated with the patient?s presentation includes: influenza, RSV, COVID-19 Lab Attestation: I reviewed the patient's lab results. Independent interpretation of EKG, rhythm strip, radiology study: Independent interp EKG,rhythm strip, radiology study I performed an independent interpretation of the: EKG Vent. Rate: 104 BPM ? ? Atrial Rate: 104 BPM P-R Int: 154 ms? QRS Dur: 086 ms QT Int: 324 ms ? ? ? P-R-T Axes: 063 031 017 degrees QTc Int: 426 ms ? Sinus tachycardia Possible Left atrial enlargement Nonspecific ST abnormality Abnormal ECG When compared with ECG of 11-NOV-2021 17:22, No significant change was found ? Electronically Signed By:BRANDT CORREIA MD Dictated By: Brandt Correia MD Signed By: Electronically signed by Brandt Correia MD 08/10/22 0854 Discussion of test interpretation with radiology: Discussion of test interpretation with radiology This interpretation was not discussed with the radiologist but is their impression per their report. EXAMINATION: XR CHEST CLINICAL INFORMATION: Low oxygen saturation. COMPARISON: CT angiography chest 11/10/2021. Chest radiograph 02/10/2017. TECHNIQUE: Frontal view of the chest was obtained. FINDINGS: Normal appearance of the cardiomediastinal structures. Pleura no focal pulmonary consolidation. Mild pulmonary vascular cephalization. Mild perivascular indistinctness. XR/XR chest 1V IMPRESSION: Finding suspicious for mild pulmonary vascular congestion. No focal pulmonary consolidation. Dictated By: Reddy Zurita MD Signed By: Electronically signed by Reddy Zurita MD 08/10/22 0608 Discharge Plan Discharge Clinical Impression: Influenza Patient Disposition: Home, Self-Care Instructions: Influenza (ED) Additional Instructions: Follow up with your primary care provider. Return to the emergency department immediately if your symptoms worsen or if you develop any dizziness, shortness of breath, difficulty breathing, chest pain, blurry vision, loss of vision, nausea, vomiting, abdominal pain, fever, chills, back pain, or any other complaints. Prescriptions: No Action (DME) walker Misc See Rx Instructions .MEDSUPPLY Qty: 1 0RF Rx Instructions: Folding Front wheeled walker (DME) walker Misc See Rx Instructions .MEDSUPPLY Qty: 1 0RF Rx Instructions: Rollator walker with seat and breaks Eliquis 5 mg tablet 5 mg PO BID Qty: 60 5RF melatonin 3 mg Tablet 9 mg PO BEDTIME magnesium hydroxide [Milk of Magnesia] 400 mg/5 mL Suspension 30 ml PO DAILY PRN (Reason: Constipation) acetaminophen 500 mg Tablet 1,000 mg PO TID prazosin 2 mg capsule 2 mg PO BEDTIME clonazepam 2 mg tablet 2 mg PO BID PRN (Reason: Anxiety) venlafaxine 75 mg capsule,extended release 24hr 75 mg PO DAILY gabapentin 300 mg capsule 300 mg PO BEDTIME pantoprazole 40 mg tablet,delayed release (DR/EC) 40 mg PO DAILY@0630 metoprolol succinate 50 mg tablet extended release 24 hr 50 mg PO DAILY dextroamphetamine-amphetamine 15 mg tablet 1 tab PO DAILY solifenacin 5 mg tablet 5 mg PO DAILY (DME) Neoprene wrist sleeve See Rx Instructions .Route .MEDSUPPLY Qty: 1 0RF Rx Instructions: As directed cholecalciferol (vitamin D3) 25 mcg (1,000 unit) capsule 25 mcg PO DAILY Ref[place]: [facility] [place]] (Call to establish and follow up with a primary care provider. If you already have a primary care provider, please follow up with them. ) [facility] [place] (Call to establish and follow up with a primary care provider. If you already have a primary care provider, please follow up with them. ) [facility] [place] Group] (Call to establish and follow up with a primary care provider. If you already have a primary care provider, please follow up with them. ) Interventions: ED Discharge Assessment Last Done: 08/10/22 09:11 Discharge Date/Time: 08/10/22 09:29 Print Language: Grenadian
== END 2022-08-10 09:29 | disposition home or self-care (01) ==
PROVIDERS: Emergency Provider Emergency Medicine Emergency Medical Services
DX: J10.1 Influenza due to other identified influenza virus with other respiratory manifestations (principal); R05.9 Cough, unspecified; Z20.822 Contact with and (suspected) exposure to COVID-19; Z79.899 Other long term (current) drug therapy; Z87.891 Personal history of nicotine dependence
CPT/HCPCS: 0241U; 36415; 71045; 80053; 85025; 85610; 93005; 99283; 99284

== ENCOUNTER 2022-08-12 18:27 | Emergency (ER) | payer MEDICARE, OTHER, SELFPAY ==
--- NOTE | ~2022-08-12 | XR_ITS ---
EXAMINATION: XR RIBS, LEFT CLINICAL INFORMATION: Pain, history of fracture COMPARISON: None TECHNIQUE: 3 views of the left ribs were obtained. FINDINGS: Lungs are clear. No consolidation, pneumothorax, or pleural effusion. The cardiomediastinal silhouette and pulmonary vasculature are normal. Osseous structures are unremarkable. Ribs are intact. No fractures are identified. XR/XR ribs LT min 3V w CXR1V IMPRESSION: Unremarkable examination.
[2022-08-12 18:35] VITALS: BP 107/58; BP 125/75; PULSE 82; PULSE 83; RESP 22; TEMP 37.1; O2SAT 93; BMI 35.2
[2022-08-12] MEDS: traMADoL HCL 50 MG TABLET PO (19:29)
--- NOTE | 2022-08-12 19:41 | PC.NURSE ---
Pt resting on stretcher at this time. Reports 0/10 left rib pain when not moving/coughing, however when she begins coughing she states that the pain elevates to a 10/10
[2022-08-12 20:00] VITALS: BP 106/58; PULSE 118; RESP 16; TEMP 37; O2SAT 95
--- NOTE | 2022-08-12 20:07 | PC.NURSE ---
2000 rounding done pt vs taken pt was hooked up to cardiac surgeon ,call reid within reach ,pt watching television .
[2022-08-12 21:54] VITALS: BP 121/69; PULSE 83; RESP 16; TEMP 36.7; O2SAT 95
--- NOTE | 2022-08-12 21:55 | PC.NURSE ---
pt said she was hungry ,pt was given tuna sandwich and gingerale .
--- NOTE | 2022-08-12 22:02 | ED.GENADULT ---
HPI - General Adult General Chief complaint: General Medical Stated complaint: Flank and Rib pain/Fall two days ago +Flu A Time Seen by Provider: 08/12/22 18:59 Source: patient Mode of arrival: ambulatory Limitations: no limitations History of Present Illness HPI narrative: Patient comes to the emergency room complaining of left-sided rib pain. Patient was diagnosed with influenza a 2 days ago. Patient states that she has been coughing quite a bit and since the last couple of hours, the pain on the left side of the ribs increase. Patient denies any chest pain, no shortness of breath. Patient states that 4 years ago she had a fall, states that she had 2 rib fractures and now the same spot is hurting. Related Data Home Medications Medication Instructions Recorded Confirmed clonazepam 2 mg tablet 2 mg PO BID PRN Anxiety 07/14/20 03/31/22 gabapentin 300 mg capsule 300 mg PO BEDTIME 07/14/20 03/31/22 metoprolol succinate 50 mg 50 mg PO DAILY 07/14/20 03/31/22 tablet,extended release 24 hr pantoprazole 40 mg tablet,delayed 40 mg PO DAILY@0630 07/14/20 03/31/22 release prazosin 2 mg capsule 2 mg PO BEDTIME 07/14/20 03/31/22 venlafaxine 75 mg capsule,extended 75 mg PO DAILY 07/14/20 03/31/22 release 24 hr dextroamphetamine-amphetamine 15 1 tab PO DAILY 08/09/21 03/31/22 mg tablet solifenacin 5 mg tablet 5 mg PO DAILY 08/09/21 03/31/22 acetaminophen 500 mg tablet 1,000 mg PO TID 10/21/21 03/31/22 magnesium hydroxide 400 mg/5 mL 30 ml PO DAILY PRN Constipation 11/11/21 03/31/22 oral suspension (Milk of Magnesia) melatonin 3 mg tablet 9 mg PO BEDTIME 11/11/21 03/31/22 cholecalciferol (vitamin D3) 25 25 mcg PO DAILY 12/15/21 03/31/22 mcg (1,000 unit) capsule Previous Rx's Medication Instructions Recorded Neoprene wrist sleeve #1 ea 07/08/21 walker #1 ea 11/25/21 walker #1 ea 06/02/22 apixaban 5 mg tablet (Eliquis) 5 mg PO BID #60 tabs 06/14/22 codeine 8 mg-guaifenesin 200 mg/5 5 ml PO Q6H PRN cough #473 mL 08/12/22 mL oral liquid Allergies Allergy/AdvReac Type Severity Reaction Status Date / Time No Known Allergies Allergy Verified 05/06/22 10:36 [No Known Allergies*] Review of Systems Review of Systems: Constitutional : No Weight loss, No Fever, No Chills, No Night Sweats, No Fatigue, No Malaise ENT/Mouth : No Hearing loss, No Ear Pain, No Nasal Congestion, No Sinus Pain, No Hoarseness, No sore throat, No Rhinorrhea, No Swallowing Difficulty Eyes: No Eye Pain, No Swelling, No Redness, No Foreign Body, No Discharge, No Vision Changes Cardiovascular : No Chest Pain, No SOB, No Dyspnea on Exertion, No Orthopnea, No Edema, No Palpitations Respiratory : No Cough, No Sputum, No Wheezing, No Smoke Exposure, No Dyspnea Gastrointestinal : No Nausea, No Vomiting, No Diarrhea, No Constipation, No abdominal Pain, No Hematochezia, No Melena Genitourinary : no irregular bleeding, No Dysuria, No Urinary Frequency, No Hematuria, No Urinary Incontinence, No Urgency, No Flank Pain, No Urinary Flow Changes, No Hesitancy Musculoskeletal : Complaining of left-sided rib pain Skin : No Skin Lesions, No rash Neuro : No Weakness, No Numbness, No Paresthesias, No Loss of Consciousness, No Dizziness, No Headache Psych : No Anxiety/Panic, No Depression, No SI/HI/AH/VH, No Social Issues, Heme/Lymph: No Bruising, No Bleeding,No Lymphadenopathy Endocrine : No Polyuria, No Polydipsia, No Temperature Intolerance PMFSH Past Medical History Medical History Abnormal gait Arthritis of left knee Gait disturbance HTN (hypertension) Hx of basal cell carcinoma IBS (irritable bowel syndrome) Lumbar spinal stenosis Major depression, recurrent, chronic Osteoarthritis Osteopenia Paroxysmal atrial fibrillation Pure hypercholesterolemia Severe major depression without psychotic features Vitamin D deficiency Surgical History History of esophagogastroduodenoscopy (EGD) Hx of appendectomy Hx of breast biopsy Hx of colonoscopy Hx of hysterectomy Family History Family History Father No problems noted. Mother No problems noted. Social History Social History Are you a primary acute care nurse practitioner to a significant other at home: No Do you presently have visiting nurse or other home services: Yes ([employer] 4 hours per week) Patient Tobacco Use Status: Former Tobacco user Quit Date: 2000 Tobacco use type: Cigarette Advance Directives: Yes Advance Directives on File: Yes Advance Directives Date on File: 11/11/21 service: No Current occupational status: retired Current occupation: rt handed Physical Exam ED Vital Signs: Vital Signs - 24 hr 08/12/22 18:35 08/12/22 20:00 08/12/22 21:54 Temperature 98.7 F 98.6 F 98.0 F Pulse Rate 83 118 H 83 Respiratory Rate 22 H 16 16 Blood Pressure 107/58 L 106/58 L 121/69 Pulse Oximetry 93 95 95 Oxygen Delivery Method Room Air Room Air Room Air BMI result Body Mass Index 35.2 Const Other: Appearance: Alert. Oriented X3. No acute distress. Eyes: Pupils equal, round and reactive to light. ENT: Pharynx normal. Neck: Normal inspection. Neck supple. No lymph nodes noted. No crepitus CVS: Normal heart rate and rhythm. Pulses normal. Normal S1 and S2 Respiratory: No respiratory distress. Breath sounds normal. No Wheezing. No rales Musculoskeletal: Pain to palpation on the left ribs laterally Abdomen: Soft and nontender. No rigidity. No distention. Skin: Skin warm and dry. Normal skin color. Normal skin turgor. Extremities: No lower extremity edema. No Lacerations. No Rash Neuro: Oriented X 3. No motor deficit. No sensory deficit. Moving all extremities. No slurred speech. CN 2 through 12 grossly intact Psych: calm, cooperative, normal affect Course Course Course Narrative: Patient was given IV Toradol by EMS. Patient was given here tramadol and 1 dose of oxycodone. On physical exam, patient had mild wheezing, patient was provided with 1 dose of p.o. prednisone and albuterol. Patient has no history of COPD to her knowledge, stop smoking 30+ years ago When patient was getting neb treatment, patient's heart rate increased to the 140s, AFib, shortly after her breathing treatment finished, she went back to sinus rhythm, heart rate in the low 80s. Patient asymptomatic. Chest x-ray is unremarkable, no fractures, no pneumonia Medications Administered Discontinued Medications Generic Name Dose Route Start Last Admin Trade Name Freq PRN Reason Stop Dose Admin Tramadol HCl 50 mg 08/12/22 19:16 08/12/22 19:29 Tramadol Hcl 50 Mg Tablet PO 08/12/22 19:17 50 mg ONCE ONE Administration Medical Decision Making Medical Decision Making Differential Diagnoses: Differential diagnosis (Pneumonia, costochondritis, rib fracture) Independent interpretation of EKG, rhythm strip, radiology study: Independent interp EKG,rhythm strip, radiology study I performed an independent interpretation of the: Plain X-Ray My interpretation is normal ribs, no infiltrates. Radiology report: FINDINGS: No significant abnormality is noted involving the heart, lungs, mediastinum, bony thorax or soft tissues. XR/XR chest 1V IMPRESSION: Unremarkable examination. Discharge Plan Discharge Clinical Impression: Costochondritis Patient Disposition: Home, Self-Care Instructions: Costochondritis (ED) Additional Instructions: Please follow-up with your primary care physician tomorrow. If you have any worsening or new symptoms, please return to the emergency room or call 911 Prescriptions: New codeine-guaifenesin 8-200 mg/5 mL liquid 5 ml PO Q6H PRN (Reason: cough) Qty: 473 0RF No Action (DME) walker Misc See Rx Instructions .MEDSUPPLY Qty: 1 0RF Rx Instructions: Folding Front wheeled walker (DME) walker Misc See Rx Instructions .MEDSUPPLY Qty: 1 0RF Rx Instructions: Rollator walker with seat and breaks Eliquis 5 mg tablet 5 mg PO BID Qty: 60 5RF melatonin 3 mg Tablet 9 mg PO BEDTIME magnesium hydroxide [Milk of Magnesia] 400 mg/5 mL Suspension 30 ml PO DAILY PRN (Reason: Constipation) acetaminophen 500 mg Tablet 1,000 mg PO TID prazosin 2 mg capsule 2 mg PO BEDTIME clonazepam 2 mg tablet 2 mg PO BID PRN (Reason: Anxiety) venlafaxine 75 mg capsule,extended release 24hr 75 mg PO DAILY gabapentin 300 mg capsule 300 mg PO BEDTIME pantoprazole 40 mg tablet,delayed release (DR/EC) 40 mg PO DAILY@0630 metoprolol succinate 50 mg tablet extended release 24 hr 50 mg PO DAILY dextroamphetamine-amphetamine 15 mg tablet 1 tab PO DAILY solifenacin 5 mg tablet 5 mg PO DAILY (DME) Neoprene wrist sleeve See Rx Instructions .Route .MEDSUPPLY Qty: 1 0RF Rx Instructions: As directed cholecalciferol (vitamin D3) 25 mcg (1,000 unit) capsule 25 mcg PO DAILY
[2022-08-12] MEDS: predniSONE 20 MG TABLET 60 MG PO (22:33)
[2022-08-12] MEDS: oxyCODONE HCl Immed Release 5 MG TABLET PO (22:33)
== END 2022-08-12 22:46 | disposition home or self-care (01) ==
PROVIDERS: Emergency Provider Emergency Medicine
DX: M94.0 Chondrocostal junction syndrome [Tietze] (principal); Z87.891 Personal history of nicotine dependence; Z79.899 Other long term (current) drug therapy
CPT/HCPCS: 71101; 99283; 99284

== ENCOUNTER 2022-08-17 11:37 | Emergency (ER) | payer MEDICARE, OTHER, SELFPAY ==
--- NOTE | ~2022-08-17 | XR_ITS ---
EXAMINATION: XR CHEST CLINICAL INFORMATION: Shortness of breath COMPARISON: Previous chest x-ray 08/12/2022 TECHNIQUE: 2 views of the chest were obtained. FINDINGS: The cardiac and mediastinal contours are stable. There is linear scarring or subsegmental atelectasis in the left midlung. The lungs are otherwise clear. There is blunting at the left costophrenic angle suggestive of a small left pleural effusion. There is no right pleural effusion. There is no pneumothorax. There are degenerative changes of the spine. XR/XR chest 2V IMPRESSION: Scarring or subsegmental atelectasis at the left lung base. Small left pleural effusion.
[2022-08-17 11:58] VITALS: BP 117/65; PULSE 69; RESP 16; TEMP 36; O2SAT 95; BMI 32.8
--- NOTE | 2022-08-17 11:59 | ED_ITS ---
HPI - General Adult General Chief complaint: Upper Respiratory Symptoms <Cecile Arndt NP - Last Filed: 08/17/22 12:04> Stated complaint: sent from pcp, inflamed cartilage ribs, afib <Cecile Arndt NP - Last Filed: 08/17/22 12:04> Time Seen by Provider: 08/17/22 14:41 <Cecile Arndt NP - Last Filed: 08/17/22 12:04> Source: patient <Judith Meyer NP - Last Filed: 08/17/22 15:39> Mode of arrival: ambulatory <Judith Meyer NP - Last Filed: 08/17/22 15:39> Limitations: no limitations <Judith Meyer NP - Last Filed: 08/17/22 15:39> History of Present Illness HPI narrative: 71-year-old female with past medical history paroxysmal AFib and recent diagnosis of influenza complicated by costochondritis sent to the emergency department by her PCP for concern a possible pneumonia as her upper respiratory symptoms continue to persist. Patient denies any change in shortness of breath, cough, or rib pain since her last visit here on 08/12/2022. She is concerned about pneumonia as she has a history of afib. <Judith Meyer NP - Last Filed: 08/17/22 15:39> Related Data Home medications: Home Medications Medication Instructions Recorded Confirmed clonazepam 2 mg tablet 2 mg PO BID PRN Anxiety 07/14/20 03/31/22 gabapentin 300 mg capsule 300 mg PO BEDTIME 07/14/20 03/31/22 metoprolol succinate 50 mg 50 mg PO DAILY 07/14/20 03/31/22 tablet,extended release 24 hr pantoprazole 40 mg tablet,delayed 40 mg PO DAILY@0630 07/14/20 03/31/22 release prazosin 2 mg capsule 2 mg PO BEDTIME 07/14/20 03/31/22 venlafaxine 75 mg capsule,extended 75 mg PO DAILY 07/14/20 03/31/22 release 24 hr dextroamphetamine-amphetamine 15 1 tab PO DAILY 08/09/21 03/31/22 mg tablet solifenacin 5 mg tablet 5 mg PO DAILY 08/09/21 03/31/22 acetaminophen 500 mg tablet 1,000 mg PO TID 10/21/21 03/31/22 magnesium hydroxide 400 mg/5 mL 30 ml PO DAILY PRN Constipation 11/11/21 oral suspension (Milk of Magnesia) melatonin 3 mg tablet 9 mg PO BEDTIME 11/11/21 03/31/22 cholecalciferol (vitamin D3) 25 25 mcg PO DAILY 12/15/21 03/31/22 mcg (1,000 unit) capsule Previous Rx's Medication Instructions Recorded Neoprene wrist sleeve #1 ea 07/08/21 walker #1 ea 11/25/21 walker #1 ea 06/02/22 apixaban 5 mg tablet (Eliquis) 5 mg PO BID #60 tabs 06/14/22 codeine 8 mg-guaifenesin 200 mg/5 5 ml PO Q6H PRN cough #473 mL 08/12/22 mL oral liquid codeine 10 mg-guaifenesin 100 mg/5 5 ml PO Q6H PRN cough #473 mL 08/13/22 mL oral liquid (Guaifenesin AC) azithromycin 250 mg tablet 250 mg PO DAILY 4 days #4 tabs 08/17/22 <Cecile Arndt NP - Last Filed: 08/17/22 12:04> Allergies/adverse reactions: Allergies Allergy/AdvReac Type Severity Reaction Status Date / Time No Known Allergies Allergy Verified 05/06/22 10:36 [No Known Allergies*] <Cecile Arndt NP - Last Filed: 08/17/22 12:04> Review of Systems Review of Systems: In addition to documented HPI above, the additional ROS was obtained: Constitutional: No Weight loss, No Fever, No Chills ENT/Mouth: No Ear Pain, No Nasal Congestion, No Sinus Pain, No Hoarseness, No sore throat, No Rhinorrhea, No Swallowing Difficulty Cardiovascular: No Chest Pain, No SOB Respiratory: No Cough, No Sputum, No Wheezing Gastrointestinal: No Nausea, No Vomiting, No Diarrhea, No Constipation, No Abdominal pain Musculoskeletal: No joint pain, No Myalgias, No Joint Swelling Skin: No Skin Lesions, No rash Neuro: No Weakness, No Numbness, No Paresthesias <Judith Meyer NP - Last Filed: 08/17/22 15:39> Yes all other systems are reviewed and are negative <Judith Meyer NP - Last Filed: 08/17/22 15:39> [facility] Past Medical History Attestation statement: The following information was validated with the patient. <Judith Meyer NP - Last Filed: 08/17/22 15:39> Source: old records reviewed <Judith Meyer NP - Last Filed: 08/17/22 15:39> Medical History: Medical History Abnormal gait Arthritis of left knee Gait disturbance HTN (hypertension) Hx of basal cell carcinoma IBS (irritable bowel syndrome) Lumbar spinal stenosis Major depression, recurrent, chronic Osteoarthritis Osteopenia Paroxysmal atrial fibrillation Pure hypercholesterolemia Severe major depression without psychotic features Vitamin D deficiency <Cecile Arndt NP - Last Filed: 08/17/22 12:04> Surgical History: Surgical History History of esophagogastroduodenoscopy (EGD) Hx of appendectomy Hx of breast biopsy Hx of colonoscopy Hx of hysterectomy <Cecile Arndt NP - Last Filed: 08/17/22 12:04> Family History Family History: Family History Father No problems noted. Mother No problems noted. 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) Patient Tobacco Use Status: Former Tobacco user Quit Date: 2000 Tobacco use type: Cigarette Advance Directives: Yes Advance Directives on File: Yes Advance Directives Date on File: 11/11/21 service: No Current occupational status: retired Current occupation: rt handed <Cceile Arndt NP - Last Filed: 08/17/22 12:04> Physical Exam ED Vital Signs: Vital Signs - 24 hr 08/17/22 11:58 08/17/22 14:47 08/17/22 15:03 Temperature 96.8 F 97.8 F Pulse Rate 69 130 H 60 Respiratory Rate 16 20 16 Blood Pressure 117/65 101/51 L Pulse Oximetry 95 97 95 Oxygen Delivery Method Room Air Room Air BMI result Body Mass Index 32.8 <Cecile Arndt SECURITY TESTER - Last Filed: 08/17/22 12:04> Vital Signs - 24 hr 08/17/22 11:58 08/17/22 14:47 08/17/22 15:03 Temperature 96.8 F 97.8 F Pulse Rate 69 130 H 60 Respiratory Rate 16 20 16 Blood Pressure 117/65 101/51 L Pulse Oximetry 95 97 95 Oxygen Delivery Method Room Air Room Air BMI result Body Mass Index 32.8 <Judith Meyer SECURITY TESTER - Last Filed: 08/17/22 15:39> Const General: cooperative, alert and Physically active <Judith Meyer SECURITY TESTER - Last Filed: 08/17/22 15:39> Nutritional Appearance: well nourished <Judith Meyer SECURITY TESTER - Last Filed: 08/17/22 15:39> Orientation/consciousness: patient oriented x3 <Judith Meyer SECURITY TESTER - Last Filed: 08/17/22 15:39> Limitations: no limitations <Judith Meyer SECURITY TESTER - Last Filed: 08/17/22 15:39> [facility] Head: Yes normal to inspection, Yes normocephalic and Yes atraumatic <Judith Meyer SECURITY TESTER - Last Filed: 08/17/22 15:39> Ears: hearing grossly normal bilaterally <Judith Meyer SECURITY TESTER - Last Filed: 1 10/18/21 15:39> General nose exam: Normal external nose present <Judith Meyer SECURITY TESTER - Last Filed: 08/17/22 15:39> Face and sinus: Yes normal facial exam <Judith Meyer SECURITY TESTER - Last Filed: 08/17/22 15:39> Mouth: Normal oral and palatal mucosa present <Judith Meyer SECURITY TESTER - Last Filed: 08/17/22 15:39> Teeth and gingiva: dentition normal <Judith Meyer SECURITY TESTER - Last Filed: 08/17/22 15:39> Throat: Yes posterior oropharynx normal, Yes tonsils normal and Yes uvula midline <Judith Meyer SECURITY TESTER - Last Filed: 08/17/22 15:39> Eyes General: appearance normal, both eyes and all related structures <Judith Meyer SECURITY TESTER - Last Filed: 08/17/22 15:39> Visual Ling: normal visual ling by confrontation <Judith Meyer SECURITY TESTER - Last Filed: 08/17/22 15:39> Alignment and Position: alignment normal <Judith Meyer SECURITY TESTER - Last Filed: 08/17/22 15:39> Periorbital: periorbital findings normal <Judith Meyer, SECURITY TESTER - Last Filed: 08/17/22 15:39> Eyelids: Yes eyelids normal <Judith Meyer SECURITY TESTER - Last Filed: 08/17/22 15:39> Conjunctivae: conjunctivae normal <Judith Meyer SECURITY TESTER - Last Filed: 08/17/22 15:39> Sclerae: sclerae normal <Judith Meyer SECURITY TESTER - Last Filed: 08/17/22 15:39> Corneas: corneas normal <Judith Meyer SECURITY TESTER - Last Filed: 08/17/22 15:39> Pupils: Equal, round and reactive pupils present <Judith Meyer SECURITY TESTER - Last Filed: 08/17/22 15:39> EOM: EOMs intact bilaterally <Judith Meyer SECURITY TESTER - Last Filed: 08/17/22 15:39> Neck Neck: Yes normal visual inspection and Yes full ROM <Judith Meyer SECURITY TESTER - Last Filed: 08/17/22 15:39> Chest Chest palpation & inspection: normal inspection of the chest <Judith Meyer SECURITY TESTER - Last Filed: 08/17/22 15:39> Resp Effort & Inspection: normal respiratory effort and not labored <Judith Meyer SECURITY TESTER - Last Filed: 08/17/22 15:39> Auscultation: diminished lung sounds bilateral and diffuse <Judithjaspreet Meyer, SECURITY TESTER - Last Filed: 08/17/22 15:39> Cardio Rate: regular rate <Judith Mitch, SECURITY TESTER - Last Filed: 08/17/22 15:39> Rhythm: regular rhythm <Judith Plcarrie, SECURITY TESTER - Last Filed: 08/17/22 15:39> Skin General skin exam: no rashes or lesions noted <Judith Mitch, SECURITY TESTER - Last Filed: 08/17/22 15:39> Neuro General: patient oriented x3 and moves all extremities <Judith Mitch, SECURITY TESTER - Last Filed: 08/17/22 15:39> Cranial nerves: Yes Equal, round and reactive pupils present <Judith Mitch, SECURITY TESTER - Last Filed: 08/17/22 15:39> Cognition (Neuro): normal cognition <Judith Mitch, SECURITY TESTER - Last Filed: 08/17/22 15:39> Gait exam (Neuro): Normal gait present <Judith Mitch, SECURITY TESTER - Last Filed: 08/17/22 15:39> Extrem General: Yes normal to inspection, Yes full ROM and Yes capillary refill normal <Judith Meyer SECURITY TESTER - Last Filed: 08/17/22 15:39> Course Course Course Narrative: This is a rapid medical exam. Deferred additional HPI, ROS, PE to primary provider. 71 yo female with history of afib on eliquis here with complaints of shortness of breath, chest congestion with cough which is nonproductive. Seen here 08/10 and diagnosed with influenza, seen again 08/12 for rib pain and discharged home. Called her PCP office today as a follow-up and due to continued symptoms recommended she be evaluated in the ER again. VSS. Will check labs, EKG, CXR. <Cecile Arndt SECURITY TESTER - Last Filed: 08/17/22 12:04> This is a rapid medical exam. Deferred additional HPI, ROS, PE to primary provider. 71 yo female with history of afib on eliquis here with complaints of shortness of breath, chest congestion with cough which is nonproductive. Seen here 08/10 and diagnosed with influenza, seen again 08/12 for rib pain and discharged home. Called her PCP office today as a follow-up and due to continued symptoms recommended she be evaluated in the ER again. VSS. Will check labs, EKG, CXR. EXAMINATION: XR CHEST CLINICAL INFORMATION: Shortness of breath COMPARISON: Previous chest x-ray 08/12/2022 TECHNIQUE: 2 views of the chest were obtained. FINDINGS: The cardiac and mediastinal contours are stable. There is linear scarring or subsegmental atelectasis in the left midlung. The lungs are otherwise clear. There is blunting at the left costophrenic angle suggestive of a small left pleural effusion. There is no right pleural effusion. There is no pneumothorax. There are degenerative changes of the spine. XR/XR chest 2V IMPRESSION: Scarring or subsegmental atelectasis at the left lung base. Small left pleural effusion. Dictated By: Caitlyn Alaniz MD Signed By: <Electronically signed by Caitlyn Alaniz MD in [place]> 08/17/22 1356 DD/ 1223 TD/TT:? General Internist And Physician Leader: JEFFREY <Judith Meyer NP - Last Filed: 08/17/22 15:39> Medications Administered Discontinued Medications Generic Name Dose Route Start Last Admin Trade Name Freq PRN Reason Stop Dose Admin Azithromycin 500 mg 08/17/22 14:44 08/17/22 15:00 Azithromycin 500 Mg Tablet PO 08/17/22 14:45 500 mg ONCE ONE Administration <Cecile Arndt NP - Last Filed: 08/17/22 12:04> Medications Administered Discontinued Medications Generic Name Dose Route Start Last Admin Trade Name Freq PRN Reason Stop Dose Admin Azithromycin 500 mg 08/17/22 14:44 08/17/22 15:00 Azithromycin 500 Mg Tablet PO 08/17/22 14:45 500 mg ONCE ONE Administration <Judith Meyer NP - Last Filed: 08/17/22 15:39> Medical Decision Making Medical Decision Making MDM Narrative: 71-year-old female with past medical history paroxysmal AFib and recent diagnosis of influenza complicated by costochondritis sent to the emergency department by her PCP for concern a possible pneumonia as her upper respiratory symptoms continue to persist. Chest xray showing scarring or subsegmental atelectasis at the left lung base and small left pleural effusion. Azithromycin 500 mg given in the ED with plan to continue 250 mg x 4 days at home. HPI, PE, diagnostics, and plan discussed with pt with no unanswered questions at this ti me. Educated to return to the emergency department with worsening shortness of breath, pain with cough, chest pain, fever despite taking Tylenol and/or Motrin, chills, or any other emergent symptoms. Recommended to symptom managed with [id number] Tylenol and/or Motrin, cold medications, increased fluid, and rest. Recommended to follow-up with her primary care provider for further treatment and management. <Judith Meyer, SECURITY TESTER - Last Filed: 08/17/22 15:39> Lab Data Result Diagrams: : 08/17/22 12:40 08/17/22 12:40 <Cecile Arndt SECURITY TESTER - Last Filed: 08/17/22 12:04> Labs: Lab Results 08/17/22 08/17/22 08/17/22 Range/Units 12:39 12:40 12:40 WBC 8.2 (4.8-10.8) X10*3/uL RBC 4.84 (4.20-5.50) X10*6/uL Hgb 13.9 (12.0-16.0) g/dl Hct 43.0 (37.0-47.0) % MCV 88.8 (80.0-98.0) fL MCH 28.7 (27.0-33.0) pg MCHC 32.3 (31.0-35.0) g/dl RDW 13.8 (11.0-16.0) % Plt Count 257 (160-400) X10*3/uL MPV 9.3 L (9.4-12.3) fL Immature Gran % (Auto) 0.6 H (0.0-0.4) % Neut % (Auto) 53.9 (45-73) % Lymph % (Auto) 35.3 (20-40) % Lander % (Auto) 8.8 (2-11) % Eos % (Auto) 0.9 (0-4) % Baso % (Auto) 0.5 (0-2) % Lymph # (Auto) 2.9 (1.2-4.9) X10*3/uL Lander # (Auto) 0.7 (0.1-1.2) X10*3/uL Eos # (Auto) 0.1 (0.0-0.4) X10*3/uL Baso # (Auto) 0.0 (0.0-0.2) X10*3/uL Abs Immat Gran (auto) 0.05 H (0.00-0.03) X10*3/uL Absolute Neuts (auto) 4.4 (2.0-8.3) x10*3/uL Absolute Nucleated RBC 0.000 (0.0-0.012) X10*3/uL Nucleated RBC % (auto) 0.0 (0.0-0.2) /100WBC PT 12.8 (10.0-13.1) SEC INR 1.1 (0.9-1.1) Sodium 137 (135-145) mmol/L Potassium 4.4 (3.3-5.1) mmol/L Chloride 102 (96-108) mmol/L Carbon Dioxide 28 (22-29) mmol/L Anion Gap 11 L (12-20) BUN 19 H (9-16) mg/dL Creatinine 0.67 (0.5-1.4) mg/dL Estim Creat Clear Calc 91.2 Estimated GFR > 60 Random Glucose 95 (60-115) mg/dL Calcium 9.7 (8.4-10.2) mg/dL Total Bilirubin 0.4 (0.0-1.0) mg/dL Direct Bilirubin 0.2 (0.0-0.5) mg/dL AST 31 D (5-31) U/L ALT 45 H (0-31) U/L Alkaline Phosphatase 98 (39-117) U/L Troponin I High Sens (<3.5-17.0) ng/L Total Protein 7.0 (6.5-8.0) g/dL Albumin 3.9 (3.5-5.0) g/dL 08/17/22 Range/Units 12:40 WBC (4.8-10.8) X10*3/uL RBC (4.20-5.50) X10*6/uL Hgb (12.0-16.0) g/dl Hct (37.0-47.0) % MCV (80.0-98.0) fL MCH (27.0-33.0) pg MCHC (31.0-35.0) g/dl RDW (11.0-16.0) % Plt Count (160-400) X10*3/uL MPV (9.4-12.3) fL Immature Gran % (Auto) (0.0-0.4) % Neut % (Auto) (45-73) % Lymph % (Auto) (20-40) % Lander % (Auto) (2-11) % Eos % (Auto) (0-4) % Baso % (Auto) (0-2) % Lymph # (Auto) (1.2-4.9) X10*3/uL Lander # (Auto) (0.1-1.2) X10*3/uL Eos # (Auto) (0.0-0.4) X10*3/uL Baso # (Auto) (0.0-0.2) X10*3/uL Abs Immat Gran (auto) (0.00-0.03) X10*3/uL Absolute Neuts (auto) (2.0-8.3) x10*3/uL Absolute Nucleated RBC (0.0-0.012) X10*3/uL Nucleated RBC % (auto) (0.0-0.2) /100WBC PT (10.0-13.1) SEC INR (0.9-1.1) Sodium (135-145) mmol/L Potassium (3.3-5.1) mmol/L Chloride (96-108) mmol/L Carbon Dioxide (22-29) mmol/L Anion Gap (12-20) BUN (9-16) mg/dL Creatinine (0.5-1.4) mg/dL Estim Creat Clear Calc Estimated GFR Random Glucose (60-115) mg/dL Calcium (8.4-10.2) mg/dL Total Bilirubin (0.0-1.0) mg/dL Direct Bilirubin (0.0-0.5) mg/dL AST (5-31) U/L ALT (0-31) U/L Alkaline Phosphatase (39-117) U/L Troponin I High Sens < 3.5 (<3.5-17.0) ng/L Total Protein (6.5-8.0) g/dL Albumin (3.5-5.0) g/dL <Cecile Arndt NP - Last Filed: 08/17/22 12:04> Lab Results 08/17/22 08/17/22 08/17/22 Range/Units 12:39 12:40 12:40 WBC 8.2 (4.8-10.8) X10*3/uL RBC 4.84 (4.20-5.50) X10*6/uL Hgb 13.9 (12.0-16.0) g/dl Hct 43.0 (37.0-47.0) % MCV 88.8 (80.0-98.0) fL MCH 28.7 (27.0-33.0) pg MCHC 32.3 (31.0-35.0) g/dl RDW 13.8 (11.0-16.0) % Plt Count 257 (160-400) X10*3/uL MPV 9.3 L (9.4-12.3) fL Immature Gran % (Auto) 0.6 H (0.0-0.4) % Neut % (Auto) 53.9 (45-73) % Lymph % (Auto) 35.3 (20-40) % Lander % (Auto) 8.8 (2-11) % Eos % (Auto) 0.9 (0-4) % Baso % (Auto) 0.5 (0-2) % Lymph # (Auto) 2.9 (1.2-4.9) X10*3/uL Lander # (Auto) 0.7 (0.1-1.2) X10*3/uL Eos # (Auto) 0.1 (0.0-0.4) X10*3/uL Baso # (Auto) 0.0 (0.0-0.2) X10*3/uL Abs Immat Gran (auto) 0.05 H (0.00-0.03) X10*3/uL Absolute Neuts (auto) 4.4 (2.0-8.3) x10*3/uL Absolute Nucleated RBC 0.000 (0.0-0.012) X10*3/uL Nucleated RBC % (auto) 0.0 (0.0-0.2) /100WBC PT 12.8 (10.0-13.1) SEC INR 1.1 (0.9-1.1) Sodium 137 (135-145) mmol/L Potassium 4.4 (3.3-5.1) mmol/L Chloride 102 (96-108) mmol/L Carbon Dioxide 28 (22-29) mmol/L Anion Gap 11 L (12-20) BUN 19 H (9-16) mg/dL Creatinine 0.67 (0.5-1.4) mg/dL Estim Creat Clear Calc 91.2 Estimated GFR > 60 Random Glucose 95 (60-115) mg/dL Calcium 9.7 (8.4-10.2) mg/dL Total Bilirubin 0.4 (0.0-1.0) mg/dL Direct Bilirubin 0.2 (0.0-0.5) mg/dL AST 31 D (5-31) U/L ALT 45 H (0-31) U/L Alkaline Phosphatase 98 (39-117) U/L Troponin I High Sens (<3.5-17.0) ng/L Total Protein 7.0 (6.5-8.0) g/dL Albumin 3.9 (3.5-5.0) g/dL 08/17/22 Range/Units 12:40 WBC (4.8-10.8) X10*3/uL RBC (4.20-5.50) X10*6/uL Hgb (12.0-16.0) g/dl Hct (37.0-47.0) % MCV (80.0-98.0) fL MCH (27.0-33.0) pg MCHC (31.0-35.0) g/dl RDW (11.0-16.0) % Plt Count (160-400) X10*3/uL MPV (9.4-12.3) fL Immature Gran % (Auto) (0.0-0.4) % Neut % (Auto) (45-73) % Lymph % (Auto) (20-40) % Lander % (Auto) (2-11) % Eos % (Auto) (0-4) % Baso % (Auto) (0-2) % Lymph # (Auto) (1.2-4.9) X10*3/uL Lander # (Auto) (0.1-1.2) X10*3/uL Eos # (Auto) (0.0-0.4) X10*3/uL Baso # (Auto) (0.0-0.2) X10*3/uL Abs Immat Gran (auto) (0.00-0.03) X10*3/uL Absolute Neuts (auto) (2.0-8.3) x10*3/uL Absolute Nucleated RBC (0.0-0.012) X10*3/uL Nucleated RBC % (auto) (0.0-0.2) /100WBC PT (10.0-13.1) SEC INR (0.9-1.1) Sodium (135-145) mmol/L Potassium (3.3-5.1) mmol/L Chloride (96-108) mmol/L Carbon Dioxide (22-29) mmol/L Anion Gap (12-20) BUN (9-16) mg/dL Creatinine (0.5-1.4) mg/dL Estim Creat Clear Calc Estimated GFR Random Glucose (60-115) mg/dL Calcium (8.4-10.2) mg/dL Total Bilirubin (0.0-1.0) mg/dL Direct Bilirubin (0.0-0.5) mg/dL AST (5-31) U/L ALT (0-31) U/L Alkaline Phosphatase (39-117) U/L Troponin I High Sens < 3.5 (<3.5-17.0) ng/L Total Protein (6.5-8.0) g/dL Albumin (3.5-5.0) g/dL <Judith Meyer NP - Last Filed: 08/17/22 15:39> Discharge Plan Discharge Clinical Impression: Upper respiratory infection <Cecile Arndt NP - Last Filed: 08/17/22 12:04> Patient Disposition: Home, Self-Care <Cecile Arndt NP - Last Filed: 08/17/22 12:04> Instructions: Upper Respiratory Infection (ED) <Cecile Arndt NP - Last Filed: 08/17/22 12:04> Additional Instructions: A prescription for Azithromycin has been sent to your preferred pharmacy. You started this antibiotic here in the Emergency Dept. Please continue this for the full 4 day course. If you have worsening shortness of breath, pain with cough, chest pain, fever despite taking Tylenol and/or Motrin, chills, or any other emergent symptoms. Please follow up with your primary care provider for further treatment and management <Cecile Arndt NP - Last Filed: 08/17/22 12:04> Prescriptions: New azithromycin 250 mg tablet 250 mg PO DAILY 4 Days Qty: 4 0RF Rx Instructions: First dose (500 mg) given in Emergency Department prior to discharge No Action (DME) walker Misc See Rx Instructions .MEDSUPPLY Qty: 1 0RF Rx Instructions: Folding Front wheeled walker (DME) walker Misc See Rx Instructions .MEDSUPPLY Qty: 1 0RF Rx Instructions: Rollator walker with seat and breaks Eliquis 5 mg tablet 5 mg PO BID Qty: 60 5RF melatonin 3 mg Tablet 9 mg PO BEDTIME magnesium hydroxide [Milk of Magnesia] 400 mg/5 mL Suspension 30 ml PO DAILY PRN (Reason: Constipation) codeine-guaifenesin 8-200 mg/5 mL liquid 5 ml PO Q6H PRN (Reason: cough) Qty: 473 0RF codeine-guaifenesin [Guaifenesin AC] 10-100 mg/5 mL liquid 5 ml PO Q6H PRN (Reason: cough) Qty: 473 0RF acetaminophen 500 mg Tablet 1,000 mg PO TID prazosin 2 mg capsule 2 mg PO BEDTIME clonazepam 2 mg tablet 2 mg PO BID PRN (Reason: Anxiety) venlafaxine 75 mg capsule,extended release 24hr 75 mg PO DAILY gabapentin 300 mg capsule 300 mg PO BEDTIME pantoprazole 40 mg tablet,delayed release (DR/EC) 40 mg PO DAILY@0630 metoprolol succinate 50 mg tablet extended release 24 hr 50 mg PO DAILY dextroamphetamine-amphetamine 15 mg tablet 1 tab PO DAILY solifenacin 5 mg tablet 5 mg PO DAILY (DME) Neoprene wrist sleeve See Rx Instructions .Route .MEDSUPPLY Qty: 1 0RF Rx Instructions: As directed cholecalciferol (vitamin D3) 25 mcg (1,000 unit) capsule 25 mcg PO DAILY <Cecile Arndt NP - Last Filed: 08/17/22 12:04> [place] [facility] [place] [facility] [place] Group[place] [facility] [place] [Provider Group] <eCcile Arndt NP - Last Filed: 08/17/22 12:04> Print Language: Welsh <Cecile Arndt NP - Last Filed: 08/17/22 12:04>
--- NOTE | 2022-08-17 12:02 | ECG_ITS ---
Test Reason : cp Blood Pressure : / mmHG Vent. Rate : 067 BPM Atrial Rate : 067 BPM P-R Int : 160 ms QRS Dur : 074 ms QT Int : 390 ms P-R-T Axes : 053 031 006 degrees QTc Int : 412 ms Normal sinus rhythm Normal ECG When compared with ECG of 10-AUG-2022 05:57, Vent. rate has decreased BY [address] no longer depressed in Lateral leads Referred By: Cecile Arndt Electronically Signed By:KYRA ASHBY
[2022-08-17 12:45] LABS: MANUAL DIFF FLAG NO
[2022-08-17 12:47] LABS: Basophils Percent Auto 0.5 % (0-2); Eosinophils Absolute Auto 0.1 X10*3/uL (0.0-0.4); Eosinophils Percent Auto 0.9 % (0-4); Hemoglobin 13.9 g/dl (12.0-16.0); Imm Gran Abs Auto 0.05 X10*3/uL (0.00-0.03); Imm Gran Pct Auto 0.6 % (0.0-0.4); Lymphocytes Absolute Auto 2.9 X10*3/uL (1.2-4.9); Lymphocytes Percent Auto 35.3 % (20-40); Mean Corpuscular HGB Conc 32.3 g/dl (31.0-35.0); Mean Corpuscular Hemoglobin 28.7 pg (27.0-33.0); Mean Corpuscular Volume 88.8 fL (80.0-98.0); Mean Platelet Volume 9.3 fL (9.4-12.3); Monocytes Absolute Auto 0.7 X10*3/uL (0.1-1.2); Monocytes Percent Auto 8.8 % (2-11); Neutrophils Absolute Auto 4.4 x10*3/uL (2.0-8.3); Neutrophils Percent Auto 53.9 % (45-73); Platelet Count 257 X10*3/uL (160-400); Red Blood Count 4.84 X10*6/uL (4.20-5.50); Red Cell Distribution Width 13.8 % (11.0-16.0); White Blood Count 8.2 X10*3/uL (4.8-10.8)
[2022-08-17 13:03] LABS: INTERNATIONAL NORM RATIO 1.1 (0.9-1.1); Prothrombin Time 12.8 SEC (10.0-13.1)
[2022-08-17 13:18] LABS: Troponin-I High Sensitivity < 3.5 ng/L (<3.5-17.0)
[2022-08-17 13:30] LABS: Alanine Aminotransferase 45 U/L (0-31); Albumin Level 3.9 g/dL (3.5-5.0); Alkaline Phosphatase 98 U/L (39-117); Anion Gap 11 (12-20); Aspartate Amino Transferase 31 U/L (5-31); Bilirubin Direct 0.2 mg/dL (0.0-0.5); Blood Urea Nitrogen 19 mg/dL (9-16); Calcium 9.7 mg/dL (8.4-10.2); Carbon Dioxide 28 mmol/L (22-29); Chloride 102 mmol/L (96-108); Creatinine Clr Calc Pharmacy 91.2; Estimated Glomerular Filt Rate > 60; Glucose Random 95 mg/dL (60-115); Potassium 4.4 mmol/L (3.3-5.1); Sodium 137 mmol/L (135-145)
[2022-08-17 14:27] LABS: Bilirubin Total 0.4 mg/dL (0.0-1.0)
[2022-08-17 14:47] VITALS: PULSE 130; RESP 20; TEMP 36.6; O2SAT 97
[2022-08-17] MEDS: Azithromycin 500 MG TABLET PO (15:00)
[2022-08-17 15:03] VITALS: BP 101/51; PULSE 60; RESP 16; O2SAT 95
== END 2022-08-17 15:53 | disposition home or self-care (01) ==
PROVIDERS: Nurse Practitioner Family; Emergency Provider Student in an Organized Health Care Education/Training Program; PCP Internal Medicine
DX: J06.9 Acute upper respiratory infection, unspecified (principal); I48.0 Paroxysmal atrial fibrillation; E78.00 Pure hypercholesterolemia, unspecified; I10 Essential (primary) hypertension; Z87.891 Personal history of nicotine dependence; Z79.01 Long term (current) use of anticoagulants; Z79.899 Other long term (current) drug therapy
CPT/HCPCS: 36415; 71046; 80048; 80076; 84484; 85025; 85610; 93005; 99283; 99284

== ENCOUNTER 2022-09-01 15:50 | Emergency (ER) | payer MEDICARE, OTHER, SELFPAY ==
--- NOTE | ~2022-09-01 | XR_ITS ---
EXAMINATION: XR CHEST CLINICAL INFORMATION: Shortness of breath. COMPARISON: 08/17/2022 chest radiographs. TECHNIQUE: Frontal view of the chest was obtained. FINDINGS: Minimal linear markings are seen in the left lower lung. The lungs otherwise clear. The heart and mediastinal structures are unremarkable. XR/XR chest 1V IMPRESSION: Minimal linear atelectasis/scarring in the left lower lung. No acute cardiopulmonary process.
--- NOTE | ~2022-09-01 | CT_ITS ---
EXAMINATION: CT ABDOMEN AND PELVIS WITHOUT CONTRAST CLINICAL INFORMATION: Left-sided abdominal pain COMPARISON: 01/21/2020 TECHNIQUE: Multidetector volumetric imaging was performed from the superior aspect of the liver through the pubic symphysis. Sagittal and coronal reformatted images were obtained on the technologist's workstation. This CT examination was performed using dose optimization techniques as appropriate, variously including the following: *Automated exposure control *Adjustment of mA and/or kV according to patient size (this includes techniques or standardized protocols for targeted exams where dose is matched to indication/reason for exam; i.e. extremities or head) *Use of iterative reconstruction technique DLP: 1021 mGy-cm FINDINGS: LUNG BASES: The visualized lung bases are unremarkable. LIVER, GALLBLADDER, AND BILIARY TREE: The liver is normal in size, shape, and attenuation. No focal hepatic lesion or biliary ductal dilatation is present. Gallbladder unremarkable. PANCREAS: Unremarkable. SPLEEN: Unremarkable. ADRENAL GLANDS: Unremarkable. KIDNEYS AND URETERS: The kidneys are normal in size, shape, and attenuation. There are benign bilateral renal cysts and subcentimeter hyperdense cyst left kidney, previously shown to lack enhancement. No follow-up required. No hydronephrosis, hydroureter, or calculi seen. No perinephric stranding. BLADDER: Unremarkable. GASTROINTESTINAL TRACT: Stomach and small bowel unremarkable. There are a few scattered colonic diverticula. No evidence of diverticulitis. Previous appendectomy. ABDOMINAL WALL: No significant hernia is appreciated. LYMPH NODES: Normal. VASCULAR: Aorta is atherosclerotic but normal caliber. PELVIC VISCERA: Hysterectomy. No adnexal abnormalities. OSSEOUS STRUCTURES: Unremarkable. CT/CT abdomen pelvis wo IV con IMPRESSION: No potential etiology for the patient's left abdominal pain and leukocytosis. Few scattered colonic diverticula without evidence of diverticulitis. Fleischner guidelines were followed.
[2022-09-01 15:58] VITALS: BP 116/97; PULSE 83; RESP 18; TEMP 36.9; O2SAT 96; BMI 40.7
[2022-09-01 16:40] LABS: MANUAL DIFF FLAG NO
[2022-09-01 16:43] LABS: Basophils Absolute Auto 0.1 X10*3/uL (0.0-0.2); Basophils Percent Auto 0.4 % (0-2); Eosinophils Absolute Auto 0.1 X10*3/uL (0.0-0.4); Eosinophils Percent Auto 0.7 % (0-4); Hematocrit 43.2 % (37.0-47.0); Hemoglobin 13.5 g/dl (12.0-16.0); Imm Gran Abs Auto 0.07 X10*3/uL (0.00-0.03); Imm Gran Pct Auto 0.5 % (0.0-0.4); Lymphocytes Percent Auto 30.7 % (20-40); Mean Corpuscular HGB Conc 31.3 g/dl (31.0-35.0); Mean Corpuscular Hemoglobin 28.5 pg (27.0-33.0); Mean Corpuscular Volume 91.3 fL (80.0-98.0); Mean Platelet Volume 9.2 fL (9.4-12.3); Monocytes Absolute Auto 1.4 X10*3/uL (0.1-1.2); Monocytes Percent Auto 10.8 % (2-11); Neutrophils Absolute Auto 7.5 x10*3/uL (2.0-8.3); Neutrophils Percent Auto 56.9 % (45-73); Platelet Count 333 X10*3/uL (160-400); Red Blood Count 4.73 X10*6/uL (4.20-5.50); Red Cell Distribution Width 13.8 % (11.0-16.0); White Blood Count 13.2 X10*3/uL (4.8-10.8)
[2022-09-01 17:03] LABS: Anion Gap 11 (12-20); Blood Urea Nitrogen 20 mg/dL (9-16); Calcium 9.6 mg/dL (8.4-10.2); Carbon Dioxide 27 mmol/L (22-29); Chloride 105 mmol/L (96-108); Creatinine Clr Calc Pharmacy 91.4; Estimated Glomerular Filt Rate > 60; Glucose Random 111 mg/dL (60-115); Potassium 4.3 mmol/L (3.3-5.1); Sodium 139 mmol/L (135-145)
--- NOTE | 2022-09-01 17:08 | ED.ABDPAIN ---
HPI - Abdominal Pain General Chief Complaint: Abdominal Pain <Cecile Arndt NP - Last Filed: 09/01/22 17:10> Stated Complaint: left sided rib pain <Cecile Arndt NP - Last Filed: 09/01/22 17:10> Time Seen by Provider: 09/01/22 22:39 <Cecile Arndt NP - Last Filed: 09/01/22 17:10> Source: patient <Damien Beavers MD - Last Filed: 09/02/22 00:38> Mode of arrival: ambulatory <Damien Beavers MD - Last Filed: 09/02/22 00:38> Limitations: no limitations <Damien Beavers MD - Last Filed: 09/02/22 00:38> History of Present Illness HPI narrative: 71-year-old female history of flu and coughing patient been complaining of left-sided abdominal pain. Left-sided abdominal pain that is constant for the past 10 days, pain is severe 10/10 described as stabbing pain localized to the left side of the abdomen pain is more with movement and taking a deep breath and coughing, nothing relieves the pain even sitting still. No nausea, no vomiting, no diarrhea, no dysuria, no frequency urination, no fever, no chills. Patient stated she had a recent colonoscopy which was unremarkable with no history of known diverticular disease. Abdominal surgical history significant for appendectomy and hysterectomy. <Damien Beavers MD - Last Filed: 09/02/22 00:38> Related Data Home Medications: Home Medications Medication Instructions Recorded Confirmed clonazepam 2 mg tablet 2 mg PO BID PRN Anxiety 07/14/20 03/31/22 gabapentin 300 mg capsule 300 mg PO BEDTIME 07/14/20 03/31/22 metoprolol succinate 50 mg 50 mg PO DAILY 07/14/20 03/31/22 tablet,extended release 24 hr pantoprazole 40 mg tablet,delayed 40 mg PO DAILY@0630 07/14/20 03/31/22 release prazosin 2 mg capsule 2 mg PO BEDTIME 07/14/20 03/31/22 venlafaxine 75 mg capsule,extended 75 mg PO DAILY 07/14/20 03/31/22 release 24 hr dextroamphetamine-amphetamine 15 1 tab PO DAILY 08/09/21 03/31/22 mg tablet solifenacin 5 mg tablet 5 mg PO DAILY 08/09/21 03/31/22 acetaminophen 500 mg tablet 1,000 mg PO TID 10/21/21 03/31/22 magnesium hydroxide 400 mg/5 mL 30 ml PO DAILY PRN Constipation 11/11/21 03/31/22 oral suspension (Milk of Magnesia) melatonin 3 mg tablet 9 mg PO BEDTIME 11/11/21 03/31/22 cholecalciferol (vitamin D3) 25 25 mcg PO DAILY 12/15/21 03/31/22 mcg (1,000 unit) capsule Previous Rx's Medication Instructions Recorded Neoprene wrist sleeve #1 ea 07/08/21 walker #1 ea 11/25/21 walker #1 ea 06/02/22 apixaban 5 mg tablet (Eliquis) 5 mg PO BID #60 tabs 06/14/22 codeine 8 mg-guaifenesin 200 mg/5 5 ml PO Q6H PRN cough #473 mL 08/12/22 mL oral liquid codeine 10 mg-guaifenesin 100 mg/5 5 ml PO Q6H PRN cough #473 mL 08/13/22 mL oral liquid (Guaifenesin AC) azithromycin 250 mg tablet 250 mg PO DAILY 4 days #4 tabs 08/17/22 codeine 10 mg-guaifenesin 100 mg/5 5 ml PO Q6H PRN cough #120 mL 09/02/22 mL oral liquid oxycodone 5 mg tablet 5 mg PO Q8H PRN pain #7 tabs 09/02/22 <Cecile Arndt NP - Last Filed: 09/01/22 17:10> Allergies/Adverse Reactions: Allergies Allergy/AdvReac Type Severity Reaction Status Date / Time No Known Allergies Allergy Verified 05/06/22 10:36 [No Known Allergies*] <Cecile Arndt NP - Last Filed: 09/01/22 17:10> Review of Systems Review of Systems All other systems are reviewed and are negative Constitutional: Reports as per HPI and Reports no additional constitutional complaints Eyes: Reports as per HPI and Reports no additional eye complaints Reports system reviewed and no additional complaints, except as documented Cardiovascular: Reports as per HPI and Reports no additional cardiovascular complaints Respiratory: Reports as per HPI and Reports no additional respiratory complaints Gastrointestinal: Reports as per HPI and Reports no additional gastrointestinal complaints Genitourinary: Reports no additional female genitourinary complaints Musculoskeletal: Reports no additional musculoskeletal complaints Skin/Breast: Reports system reviewed and no additional complaints, except as docu Psychiatric: Reports no additional psychiatric complaints Endocrine: Reports no additional endocrine complaints Hematologic/Lymphatic: Reports no additional hematologic/lymphatic complaints Allergic/Immunologic: Reports no additional allergic/immunologic complaints Reports system reviewed and no additional complaints, except as documented and Reports Abnormal speech present <Damien Beavers MD - Last Filed: 09/02/22 00:38> [facility] Past Medical History Medical History: Medical History Abnormal gait Arthritis of left knee Gait disturbance HTN (hypertension) Hx of basal cell carcinoma IBS (irritable bowel syndrome) Lumbar spinal stenosis Major depression, recurrent, chronic Osteoarthritis Osteopenia Paroxysmal atrial fibrillation Pure hypercholesterolemia Severe major depression without psychotic features Vitamin D deficiency <Cecile Arndt NP - Last Filed: 09/01/22 17:10> Surgical History: Surgical History History of esophagogastroduodenoscopy (EGD) Hx of appendectomy Hx of breast biopsy Hx of colonoscopy Hx of hysterectomy <Cecile Arndt NP - Last Filed: 09/01/22 17:10> Family History Family History: Family History Father No problems noted. Mother No problems noted. <Cecile Arndt NP - Last Filed: 09/01/22 17:10> Social History Social History: Social History Are you a primary health care marketing manager to a significant other at home: No Do you presently have visiting nurse or other home services: Yes ([employer] 4 hours per week) Patient Tobacco Use Status: Former Tobacco user Quit Date: 2000 Tobacco use type: Cigarette Advance Directives: Yes Advance Directives on File: Yes Advance Directives Date on File: 11/11/21 service: No Current occupational status: retired Current occupation: rt handed <Cecile Arndt NP - Last Filed: 09/01/22 17:10> Physical Exam ED Vital Signs: Vital Signs - 24 hr 09/01/22 15:58 09/01/22 21:15 Temperature 98.4 F 98.2 F Pulse Rate 83 82 Respiratory Rate 18 20 Blood Pressure 116/97 H 143/72 H Pulse Oximetry 96 97 Oxygen Delivery Method Room Air Room Air BMI result Body Mass Index 40.7 <Cecile Arndt NP - Last Filed: 09/01/22 17:10> Vital Signs - 24 hr 09/01/22 15:58 09/01/22 21:15 Temperature 98.4 F 98.2 F Pulse Rate 83 82 Respiratory Rate 18 20 Blood Pressure 116/97 H 143/72 H Pulse Oximetry 96 97 Oxygen Delivery Method Room Air Room Air BMI result Body Mass Index 40.7 Vital signs have been reviewed as appeared to be correct. Blood pressure normal. Heart rate normal. Respiration rate normal. Temperature normal. Oxygen saturation normal. <Damien Beavers MD - Last Filed: 09/02/22 00:38> Appearance: Alert. Oriented X3. No acute distress. Head: Normal external exam. Normocephalic. Atraumatic. No Spence signs noted. No raccoon eyes noted Eyes: PERRLA. EOMI. Conjunctiva and sclera normal. Eyelids normal. ENT: TM's Normal. Pharynx normal. Uvula midline. Moist mucous membranes. No trismus noted. No drooling noted. No muffled voice noted. Neck: Normal inspection. Neck supple. FROM. No adenopathy. Thyroid Normal. No meningeal signs. No neck mass noted. CVS: Normal heart rate and rhythm. Heart sound normal. No murmurs noted. Pulses normal throughout. Respiratory: No respiratory distress. Painless inspiration. Breath sounds normal. No wheezes/rales/rhonchi noted. Chest nontender. No accessory muscle usage noted or decreased air movement noted. Abdomen: Soft and nontender. Bowel sounds normal in all 4 quadrants. No distention noted. No organomegaly noted. No visible injury noted. Back: No CVA tenderness. Full range of motion noted. Skin: Skin warm and dry. Normal skin color. Normal skin turgor. No rashes/lesions/lacerations noted. Extremities: No lower extremity edema. Extremities exhibit normal range of motion. Extremities nontender. Neuro: Oriented X 3. Cranial nerve exam: II-XII are grossly intact No motor deficit. No sensory deficit. Reflexes normal. <Damien Beavers MD - Last Filed: 09/02/22 00:38> Course Course Course Narrative: This is a rapid medical exam. Deferred additional HPI, ROS and PE to primary provider. 71 yo female here with cough, rib pain x 2 weeks after having the flu, also complaining of left lower quadrant abdominal pain. Patient seen here 3 times this month for similar symptoms. Will obtain labs, chest x-ray. Vital signs stable <Cecile Arndt NP - Last Filed: 09/01/22 17:10> Reevaluation(s) Reevaluation #1: 71-year-old female is been evaluated for left side abdominal pain physical exam/history/CT of the abdomen pelvis were all consistent with muscle contusion from coughing, patient had negative upper respiratory viral panel and also x-ray is negative. As discussed with the patient was discharged with pain medication oxycodone, patient was instructed to use it with caution and risk of fall and dizziness was discussed with the patient. Leukocytosis likely secondary to stress but no source of infection to explain the leukocytosis. <Damien Beavers MD - Last Filed: 09/02/22 00:38> Time: 00:18 <Damien Beavers MD - Last Filed: 09/02/22 00:38> Medical Decision Making Differential Diagnosis Differential Diagnoses: The differential diagnosis associated with the presentation includes (Abdominal wall contusion/kidney stone/pyelonephritis/diverticulitis/small-bowel obstruction/pneumonia/bronchitis.) <Damien Beavers MD - Last Filed: 09/02/22 00:38> Lab Data MDM Lab Attestation statement: I reviewed the patient's lab results. <Damien Beavers MD - Last Filed: 09/02/22 00:38> Result Diagrams: : 09/01/22 16:36 09/01/22 16:36 <Cecile Arndt NP - Last Filed: 09/01/22 17:10> Labs: Lab Results 09/01/22 09/01/22 09/01/22 Range/Units 16:34 16:36 16:36 WBC 13.2 H (4.8-10.8) X10*3/uL RBC 4.73 (4.20-5.50) X10*6/uL Hgb 13.5 (12.0-16.0) g/dl Hct 43.2 (37.0-47.0) % MCV 91.3 (80.0-98.0) fL MCH 28.5 (27.0-33.0) pg MCHC 31.3 (31.0-35.0) g/dl RDW 13.8 (11.0-16.0) % Plt Count 333 D (160-400) X10*3/uL MPV 9.2 L (9.4-12.3) fL Immature Gran % (Auto) 0.5 H (0.0-0.4) % Neut % (Auto) 56.9 (45-73) % Lymph % (Auto) 30.7 (20-40) % Treasure % (Auto) 10.8 (2-11) % Eos % (Auto) 0.7 (0-4) % Baso % (Auto) 0.4 (0-2) % Lymph # (Auto) 4.0 (1.2-4.9) X10*3/uL Treasure # (Auto) 1.4 H (0.1-1.2) X10*3/uL Eos # (Auto) 0.1 (0.0-0.4) X10*3/uL Baso # (Auto) 0.1 (0.0-0.2) X10*3/uL Abs Immat Gran (auto) 0.07 H (0.00-0.03) X10*3/uL Absolute Neuts (auto) 7.5 (2.0-8.3) x10*3/uL Absolute Nucleated RBC 0.000 (0.0-0.012) X10*3/uL Nucleated RBC % (auto) 0.0 (0.0-0.2) /100WBC Sodium 139 (135-145) mmol/L Potassium 4.3 (3.3-5.1) mmol/L Chloride 105 (96-108) mmol/L Carbon Dioxide 27 (22-29) mmol/L Anion Gap 11 L (12-20) BUN 20 H (9-16) mg/dL Creatinine 0.75 (0.5-1.4) mg/dL Estim Creat Clear Calc 91.4 Estimated GFR > 60 Random Glucose 111 (60-115) mg/dL Calcium 9.6 (8.4-10.2) mg/dL Total Bilirubin 0.3 (0.0-1.0) mg/dL Direct Bilirubin < 0.2 (0.0-0.5) mg/dL AST 12 D (5-31) U/L ALT 8 (0-31) U/L Alkaline Phosphatase 120 H D (39-117) U/L Total Protein 6.5 (6.5-8.0) g/dL Albumin 3.8 (3.5-5.0) g/dL Lipase 12 (8-78) U/L Urine Color Urine Appearance Urine pH (5.0-9.0) Ur Specific Foss (1.005-1.025) Urine Protein (Neg-Trace) mg/dL Urine Glucose (UA) (Negative) mg/dL Urine Ketones (Negative) mg/dL Urine Blood (Negative) Urine Nitrite (Negative) Ur Leukocyte Esterase (Negative) Influenza Type A (PCR) NEGATIVE (Negative) Influenza Type B (PCR) NEGATIVE (Negative) RSV RNA Qual (PCR) NEGATIVE (Negative) SARS-CoV-2 RNA (RT-PCR) NEGATIVE (Negative) 09/02/22 Range/Units 00:18 WBC (4.8-10.8) X10*3/uL RBC (4.20-5.50) X10*6/uL Hgb (12.0-16.0) g/dl Hct (37.0-47.0) % MCV (80.0-98.0) fL MCH (27.0-33.0) pg MCHC (31.0-35.0) g/dl RDW (11.0-16.0) % Plt Count (160-400) X10*3/uL MPV (9.4-12.3) fL Immature Gran % (Auto) (0.0-0.4) % Neut % (Auto) (45-73) % Lymph % (Auto) (20-40) % Treasure % (Auto) (2-11) % Eos % (Auto) (0-4) % Baso % (Auto) (0-2) % Lymph # (Auto) (1.2-4.9) X10*3/uL Treasure # (Auto) (0.1-1.2) X10*3/uL Eos # (Auto) (0.0-0.4) X10*3/uL Baso # (Auto) (0.0-0.2) X10*3/uL Abs Immat Gran (auto) (0.00-0.03) X10*3/uL Absolute Neuts (auto) (2.0-8.3) x10*3/uL Absolute Nucleated RBC (0.0-0.012) X10*3/uL Nucleated RBC % (auto) (0.0-0.2) /100WBC Sodium (135-145) mmol/L Potassium (3.3-5.1) mmol/L Chloride (96-108) mmol/L Carbon Dioxide (22-29) mmol/L Anion Gap (12-20) BUN (9-16) mg/dL Creatinine (0.5-1.4) mg/dL Estim Creat Clear Calc Estimated GFR Random Glucose (60-115) mg/dL Calcium (8.4-10.2) mg/dL Total Bilirubin (0.0-1.0) mg/dL Direct Bilirubin (0.0-0.5) mg/dL AST (5-31) U/L ALT (0-31) U/L Alkaline Phosphatase (39-117) U/L Total Protein (6.5-8.0) g/dL Albumin (3.5-5.0) g/dL Lipase (8-78) U/L Urine Color Yellow Urine Appearance Clear Urine pH 7.0 (5.0-9.0) Ur Specific Foss 1.025 (1.005-1.025) Urine Protein Negative (Neg-Trace) mg/dL Urine Glucose (UA) Negative (Negative) mg/dL Urine Ketones Trace (Negative) mg/dL Urine Blood Negative (Negative) Urine Nitrite Negative (Negative) Ur Leukocyte Esterase Negative (Negative) Influenza Type A (PCR) (Negative) Influenza Type B (PCR) (Negative) RSV RNA Qual (PCR) (Negative) SARS-CoV-2 RNA (RT-PCR) (Negative) <Cecile Yris, PRODUCT DEVELOPMENT CONSULTANT - Last Filed: 09/01/22 17:10> Lab Results 09/01/22 09/01/22 09/01/22 Range/Units 16:34 16:36 16:36 WBC 13.2 H (4.8-10.8) X10*3/uL RBC 4.73 (4.20-5.50) X10*6/uL Hgb 13.5 (12.0-16.0) g/dl Hct 43.2 (37.0-47.0) % MCV 91.3 (80.0-98.0) fL MCH 28.5 (27.0-33.0) pg MCHC 31.3 (31.0-35.0) g/dl RDW 13.8 (11.0-16.0) % Plt Count 333 D (160-400) X10*3/uL MPV 9.2 L (9.4-12.3) fL Immature Gran % (Auto) 0.5 H (0.0-0.4) % Neut % (Auto) 56.9 (45-73) % Lymph % (Auto) 30.7 (20-40) % Treasure % (Auto) 10.8 (2-11) % Eos % (Auto) 0.7 (0-4) % Baso % (Auto) 0.4 (0-2) % Lymph # (Auto) 4.0 (1.2-4.9) X10*3/uL Treasure # (Auto) 1.4 H (0.1-1.2) X10*3/uL Eos # (Auto) 0.1 (0.0-0.4) X10*3/uL Baso # (Auto) 0.1 (0.0-0.2) X10*3/uL Abs Immat Gran (auto) 0.07 H (0.00-0.03) X10*3/uL Absolute Neuts (auto) 7.5 (2.0-8.3) x10*3/uL Absolute Nucleated RBC 0.000 (0.0-0.012) X10*3/uL Nucleated RBC % (auto) 0.0 (0.0-0.2) /100WBC Sodium 139 (135-145) mmol/L Potassium 4.3 (3.3-5.1) mmol/L Chloride 105 (96-108) mmol/L Carbon Dioxide 27 (22-29) mmol/L Anion Gap 11 L (12-20) BUN 20 H (9-16) mg/dL Creatinine 0.75 (0.5-1.4) mg/dL Estim Creat Clear Calc 91.4 Estimated GFR > 60 Random Glucose 111 (60-115) mg/dL Calcium 9.6 (8.4-10.2) mg/dL Total Bilirubin 0.3 (0.0-1.0) mg/dL Direct Bilirubin < 0.2 (0.0-0.5) mg/dL AST 12 D (5-31) U/L ALT 8 (0-31) U/L Alkaline Phosphatase 120 H D (39-117) U/L Total Protein 6.5 (6.5-8.0) g/dL Albumin 3.8 (3.5-5.0) g/dL Lipase 12 (8-78) U/L Urine Color Urine Appearance Urine pH (5.0-9.0) Ur Specific Foss (1.005-1.025) Urine Protein (Neg-Trace) mg/dL Urine Glucose (UA) (Negative) mg/dL Urine Ketones (Negative) mg/dL Urine Blood (Negative) Urine Nitrite (Negative) Ur Leukocyte Esterase (Negative) Influenza Type A (PCR) NEGATIVE (Negative) Influenza Type B (PCR) NEGATIVE (Negative) RSV RNA Qual (PCR) NEGATIVE (Negative) SARS-CoV-2 RNA (RT-PCR) NEGATIVE (Negative) 09/02/22 Range/Units 00:18 WBC (4.8-10.8) X10*3/uL RBC (4.20-5.50) X10*6/uL Hgb (12.0-16.0) g/dl Hct (37.0-47.0) % MCV (80.0-98.0) fL MCH (27.0-33.0) pg MCHC (31.0-35.0) g/dl RDW (11.0-16.0) % Plt Count (160-400) X10*3/uL MPV (9.4-12.3) fL Immature Gran % (Auto) (0.0-0.4) % Neut % (Auto) (45-73) % Lymph % (Auto) (20-40) % Treasure % (Auto) (2-11) % Eos % (Auto) (0-4) % Baso % (Auto) (0-2) % Lymph # (Auto) (1.2-4.9) X10*3/uL Treasure # (Auto) (0.1-1.2) X10*3/uL Eos # (Auto) (0.0-0.4) X10*3/uL Baso # (Auto) (0.0-0.2) X10*3/uL Abs Immat Gran (auto) (0.00-0.03) X10*3/uL Absolute Neuts (auto) (2.0-8.3) x10*3/uL Absolute Nucleated RBC (0.0-0.012) X10*3/uL Nucleated RBC % (auto) (0.0-0.2) /100WBC Sodium (135-145) mmol/L Potassium (3.3-5.1) mmol/L Chloride (96-108) mmol/L Carbon Dioxide (22-29) mmol/L Anion Gap (12-20) BUN (9-16) mg/dL Creatinine (0.5-1.4) mg/dL Estim Creat Clear Calc Estimated GFR Random Glucose (60-115) mg/dL Calcium (8.4-10.2) mg/dL Total Bilirubin (0.0-1.0) mg/dL Direct Bilirubin (0.0-0.5) mg/dL AST (5-31) U/L ALT (0-31) U/L Alkaline Phosphatase (39-117) U/L Total Protein (6.5-8.0) g/dL Albumin (3.5-5.0) g/dL Lipase (8-78) U/L Urine Color Yellow Urine Appearance Clear Urine pH 7.0 (5.0-9.0) Ur Specific Foss 1.025 (1.005-1.025) Urine Protein Negative (Neg-Trace) mg/dL Urine Glucose (UA) Negative (Negative) mg/dL Urine Ketones Trace (Negative) mg/dL Urine Blood Negative (Negative) Urine Nitrite Negative (Negative) Ur Leukocyte Esterase Negative (Negative) Influenza Type A (PCR) (Negative) Influenza Type B (PCR) (Negative) RSV RNA Qual (PCR) (Negative) SARS-CoV-2 RNA (RT-PCR) (Negative) <Damien Beavers MD - Last Filed: 09/02/22 00:38> Independent Interpretation I performed an independent interpretation of an: Plain X-Ray (Chest: No acute pathology.) and CT Scan (Abdomen and pelvis: No acute pathology.) <Damien Beavers MD - Last Filed: 09/02/22 00:38> Radiology Impression Discussion of test interpretation with radiology: I have reviewed the radiologist's reading. <Damien Beavers MD - Last Filed: 09/02/22 00:38> Medications Administered Discontinued Medications Generic Name Dose Route Start Last Admin Trade Name Freq PRN Reason Stop Dose Admin Oxycodone HCl 5 mg 09/01/22 22:49 09/01/22 22:57 Oxycodone Hcl Immed Release 5 Mg Tablet PO 09/01/22 22:50 5 mg ONCE ONE Administration <Cecile Arndt NP - Last Filed: 09/01/22 17:10> Medications Administered Discontinued Medications Generic Name Dose Route Start Last Admin Trade Name Freq PRN Reason Stop Dose Admin Oxycodone HCl 5 mg 09/01/22 22:49 09/01/22 22:57 Oxycodone Hcl Immed Release 5 Mg Tablet PO 09/01/22 22:50 5 mg ONCE ONE Administration <Damien Beavers MD - Last Filed: 09/02/22 00:38> Discharge Plan Discharge Clinical Impression: Abdominal wall contusion, Leukocytosis <Cecile Arndt NP - Last Filed: 09/01/22 17:10> Patient Disposition: Home, Self-Care <Cecile Arndt NP - Last Filed: 09/01/22 17:10> Instructions: Contusion in Adults (ED) <Cecile Arndt NP - Last Filed: 09/01/22 17:10> Prescriptions: New oxycodone 5 mg tablet 5 mg PO Q8H PRN (Reason: pain) Qty: 7 0RF Rx Instructions: Partial Fill upon patient request. codeine-guaifenesin 10-100 mg/5 mL liquid 5 ml PO Q6H PRN (Reason: cough) Qty: 120 0RF No Action (DME) walker Misc See Rx Instructions .MEDSUPPLY Qty: 1 0RF Rx Instructions: Folding Front wheeled walker (DME) walker Misc See Rx Instructions .MEDSUPPLY Qty: 1 0RF Rx Instructions: Rollator walker with seat and breaks Eliquis 5 mg tablet 5 mg PO BID Qty: 60 5RF melatonin 3 mg Tablet 9 mg PO BEDTIME magnesium hydroxide [Milk of Magnesia] 400 mg/5 mL Suspension 30 ml PO DAILY PRN (Reason: Constipation) codeine-guaifenesin 8-200 mg/5 mL liquid 5 ml PO Q6H PRN (Reason: cough) Qty: 473 0RF codeine-guaifenesin [Guaifenesin AC] 10-100 mg/5 mL liquid 5 ml PO Q6H PRN (Reason: cough) Qty: 473 0RF azithromycin 250 mg tablet 250 mg PO DAILY 4 Days Qty: 4 0RF Rx Instructions: First dose (500 mg) given in Emergency Department prior to discharge acetaminophen 500 mg Tablet 1,000 mg PO TID prazosin 2 mg capsule 2 mg PO BEDTIME clonazepam 2 mg tablet 2 mg PO BID PRN (Reason: Anxiety) venlafaxine 75 mg capsule,extended release 24hr 75 mg PO DAILY gabapentin 300 mg capsule 300 mg PO BEDTIME pantoprazole 40 mg tablet,delayed release (DR/EC) 40 mg PO DAILY@0630 metoprolol succinate 50 mg tablet extended release 24 hr 50 mg PO DAILY dextroamphetamine-amphetamine 15 mg tablet 1 tab PO DAILY solifenacin 5 mg tablet 5 mg PO DAILY (DME) Neoprene wrist sleeve See Rx Instructions .Route .MEDSUPPLY Qty: 1 0RF Rx Instructions: As directed cholecalciferol (vitamin D3) 25 mcg (1,000 unit) capsule 25 mcg PO DAILY <Cecile Arndt NP - Last Filed: 09/01/22 17:10> Referrals: Luca Thibodeaux MD [Primary Care Provider] - <Cecile Arndt NP - Last Filed: 09/01/22 17:10>
[2022-09-01 17:22] LABS: Influenza A PCR NEGATIVE (Negative); Influenza B PCR NEGATIVE (Negative); Resp Syncy Virus RNA Qual PCR NEGATIVE (Negative); SARS COV2 PCR INHOUSE NEGATIVE (Negative)
[2022-09-01 17:41] LABS: Alanine Aminotransferase 8 U/L (0-31); Albumin Level 3.8 g/dL (3.5-5.0); Alkaline Phosphatase 120 U/L (39-117); Aspartate Amino Transferase 12 U/L (5-31); Bilirubin Direct < 0.2 mg/dL (0.0-0.5); Bilirubin Total 0.3 mg/dL (0.0-1.0); Lipase 12 U/L (8-78); Total Protein 6.5 g/dL (6.5-8.0)
[2022-09-01 21:15] VITALS: BP 143/72; PULSE 82; RESP 20; TEMP 36.8; O2SAT 97
[2022-09-01] MEDS: oxyCODONE HCl Immed Release 5 MG TABLET PO (22:57)
[2022-09-02 00:27] LABS: Appearance Urine Clear; Color Urine Yellow; Glucose Urine UA Negative (Negative); Leukocyte Esterase Urine Negative (Negative); Nitrite Urine Negative (Negative); Specific Gravity - Urine 1.025 (1.005-1.025); Urine Blood Negative (Negative); Urine Ketones Trace mg/dL (Negative); Urine Protein Negative (Neg-Trace)
== END 2022-09-02 00:57 | disposition home or self-care (01) ==
PROVIDERS: Nurse Practitioner Family; Emergency Provider Emergency Medicine; PCP Internal Medicine
DX: S30.1XXA Contusion of abdominal wall, initial encounter (principal); X50.9XXA Other and unspecified overexertion or strenuous movements or postures, initial encounter; D72.829 Elevated white blood cell count, unspecified; R05.9 Cough, unspecified; Z20.828 Contact with and (suspected) exposure to other viral communicable diseases; Y93.89 Activity, other specified; Y92.9 Unspecified place or not applicable; Y99.9 Unspecified external cause status; Z87.891 Personal history of nicotine dependence
CPT/HCPCS: 0241U; 71045; 74176; 80048; 80076; 81003; 83690; 85025; 99284

== ENCOUNTER → 2022-10-20 13:40 | Outpatient (BNVA) | payer MEDICARE, OTHER, SELFPAY | PROVIDERS: PCP Internal Medicine; Referring Provider Internal Medicine; Visit Provider Internal Medicine Cardiovascular Disease | DX: I48.0 Paroxysmal atrial fibrillation (principal) | CPT/HCPCS: 99212 ==

== ENCOUNTER 2022-12-22 15:27 | Emergency (ER) | payer MEDICARE, OTHER, SELFPAY ==
--- NOTE | ~2022-12-22 | XR_ITS ---
EXAMINATION: XR WRIST, LEFT XR HAND, LEFT CLINICAL INFORMATION: Triquetral fracture with possible scaphoid fracture. COMPARISON: 07/08/2021 TECHNIQUE: 3 views of the left hand with additional scaphoid view. FINDINGS: Osteopenia. There is no acute fracture identified. There are severe degenerative changes of the triscaphe joint with sclerosis and joint space narrowing. Narrowing at the first carpometacarpal joint with osteophyte formation. Small osteophytes throughout the interphalangeal joints. No displaced triquetral fracture seen. XR/XR hand wrist LT IMPRESSION: No acute fracture or malalignment. Degenerative changes of the hand and wrist, severe at the triscaphe joint. No scaphoid fracture seen. No displaced triquetral fracture seen on this study.
[2022-12-22 15:36] VITALS: BP 151/91; PULSE 97; RESP 18; TEMP 37.2; O2SAT 95; BMI 38.9
--- NOTE | 2022-12-22 15:36 | ED.UPPEXIN ---
HPI - Extremity Injury (Upper) General Chief Complaint: Extremity Injury, Upper <JOYCE Rebolledo - Last Filed: 12/22/22 16:52> Stated Complaint: right wrist inj 4/5 <JOYCE Rebolledo - Last Filed: 12/22/22 16:52> Time Seen by Provider: 12/22/22 16:11 <JOYCE Rebolledo - Last Filed: 12/22/22 16:52> Source: patient <Cecile Gamez NP - Last Filed: 12/22/22 16:40> Mode of arrival: ambulatory <Cecile Gamez NP - Last Filed: 12/22/22 16:40> Limitations: no limitations <Cecile Gamez NP - Last Filed: 12/22/22 16:40> History of Present Illness HPI narrative: 72 yo female right hand dominant here with complaints of left wrist/hand pain. The patient reports on December 07 she had a FOOSH of the left hand during a fall. She was seen at urgent care in [facility] and had an x-ray which showed (triquetral fracture, possible very small intra-articular avulsion of the distal aspect of the scaphoid bone, along the radial aspect, of indeterminate age, mild widening of the scapholunate interval suggesting scapholunate ligamental injury, mild to moderate degenerative changes). Patient was placed in a flexible metal splint and Giovanni wrap by urgent care. Referred to follow-up with orthopedic. Patient reports she called and was unable to get an appointment until January 19 which she was on pleased with. She did not take this appointment. She came to the ER today as she would like to have a repeat x-ray to see how her hand is healing. She reports pain is well controlled. She believes swelling has improved. She denies any numbness or tingling. Patient reports she has had previous distal radial fracture of this extremity. She cannot recall if she ever had a scaphoid fracture,. <Cecile Gamez NP - Last Filed: 12/22/22 16:40> Related Data Home Medications: Home Medications Medication Instructions Recorded Confirmed clonazepam 2 mg tablet 2 mg PO BID PRN Anxiety 07/14/20 10/20/22 gabapentin 300 mg capsule 300 mg PO BEDTIME 07/14/20 10/20/22 metoprolol succinate 50 mg 50 mg PO DAILY 07/14/20 10/20/22 tablet,extended release 24 hr pantoprazole 40 mg tablet,delayed 40 mg PO DAILY@0630 07/14/20 10/20/22 release prazosin 2 mg capsule 2 mg PO BEDTIME 07/14/20 10/20/22 venlafaxine 75 mg capsule,extended 75 mg PO DAILY 07/14/20 10/20/22 release 24 hr dextroamphetamine-amphetamine 15 1 tab PO DAILY 08/09/21 10/20/22 mg tablet solifenacin 5 mg tablet 5 mg PO DAILY 08/09/21 10/20/22 acetaminophen 500 mg tablet 1,000 mg PO TID 10/21/21 10/20/22 magnesium hydroxide 400 mg/5 mL 30 ml PO DAILY PRN Constipation 11/11/21 10/20/22 oral suspension (Milk of Magnesia) melatonin 3 mg tablet 9 mg PO BEDTIME 11/11/21 10/20/22 cholecalciferol (vitamin D3) 25 25 mcg PO DAILY 12/15/21 10/20/22 mcg (1,000 unit) capsule Previous Rx's Medication Instructions Recorded Neoprene wrist sleeve #1 ea 07/08/21 walker #1 ea 11/25/21 walker #1 ea 06/02/22 apixaban 5 mg tablet (Eliquis) 5 mg PO BID #60 tabs 06/14/22 <JOYCE Rebolledo - Last Filed: 12/22/22 16:52> Allergies/Adverse Reactions: Allergies Allergy/AdvReac Type Severity Reaction Status Date / Time No Known Allergies Allergy Verified 12/22/22 15:36 [No Known Allergies*] <JOYCE Rebolledo - Last Filed: 12/22/22 16:52> Review of Systems Review of Systems: Yes all other systems are reviewed and are negative <Cecile Gamez NP - Last Filed: 12/22/22 16:40> Constitutional: Constitutional: Reports no additional constitutional complaints, Denies body ache(s), Denies chills, Denies fever(s), Denies headache(s) and Denies weakness <Cecile Gamez NP - Last Filed: 12/22/22 16:40> Eyes: Eyes: Reports no additional eye complaints and Denies change in vision <Cecile Gamez MANAGER EMERGENCY DEPARTMENT - Last Filed: 12/22/22 16:40> ENT: Reports system reviewed and no additional complaints, except as documented, Denies dizziness, Denies headache(s), Denies nasal congestion, Denies nasal discharge and Denies neck pain <Cecile Gamez, MANAGER EMERGENCY DEPARTMENT - Last Filed: 12/22/22 16:40> Cardiovascular: Cardiovascular: Reports no additional cardiovascular complaints, Denies chest pain, Denies leg edema and Denies dyspnea <Cecile Gamez, MANAGER EMERGENCY DEPARTMENT - Last Filed: 12/22/22 16:40> Respiratory: Respiratory: Reports no additional respiratory complaints, Denies cough and Denies dyspnea <Cecile Gamez, MANAGER EMERGENCY DEPARTMENT - Last Filed: 12/22/22 16:40> Gastrointestinal: Gastrointestinal: Reports no additional gastrointestinal complaints, Denies abdominal pain, Denies diarrhea, Denies nausea and Denies vomiting <Cecile Gamez, MANAGER EMERGENCY DEPARTMENT - Last Filed: 12/22/22 16:40> Genitourinary: Genitourinary: Reports no additional female genitourinary complaints and Denies urinary incontinence <Cecile Gamez, MANAGER EMERGENCY DEPARTMENT - Last Filed: 12/22/22 16:40> Musculoskeletal: Musculoskeletal: Reports no additional musculoskeletal complaints, Denies back pain, Reports arthralgias, Reports joint swelling, Denies neck pain, Denies numbness and Denies tingling <Cecile Gamez, MANAGER EMERGENCY DEPARTMENT - Last Filed: 12/22/22 16:40> Integumentary/Breasts: Skin/Breast: Reports system reviewed and no additional complaints, except as docu and Denies rash <Cecile Gamez, MANAGER EMERGENCY DEPARTMENT - Last Filed: 12/22/22 16:40> Neurologic: Reports system reviewed and no additional complaints, except as documented, Denies Abnormal speech present, Denies dizziness, Denies headache(s), Denies numbness, Denies tingling and Denies weakness <Cecile Gamez, MANAGER EMERGENCY DEPARTMENT - Last Filed: 12/22/22 16:40> PMFSH Past Medical History Attestation statement: The following information was validated with the patient. <Cecile Gamez NP - Last Filed: 12/22/22 16:40> Source: old records reviewed and nursing notes reviewed <Cecile Gamez NP - Last Filed: 12/22/22 16:40> Medical History: Medical History Abnormal gait Arthritis of left knee Gait disturbance HTN (hypertension) Hx of basal cell carcinoma IBS (irritable bowel syndrome) Lumbar spinal stenosis Major depression, recurrent, chronic Osteoarthritis Osteopenia Paroxysmal atrial fibrillation Pure hypercholesterolemia Severe major depression without psychotic features Vitamin D deficiency <JOYCE Rebolledo - Last Filed: 12/22/22 16:52> Surgical History: Surgical History History of esophagogastroduodenoscopy (EGD) Hx of appendectomy Hx of breast biopsy Hx of colonoscopy Hx of hysterectomy <JOYCE Rebolledo - Last Filed: 12/22/22 16:52> Family History Family History: Family History Father No problems noted. Mother No problems noted. <JOYCE Rebolledo - Last Filed: 12/22/22 16:52> Social History Social History: Social History Are you a primary career discovery teacher to a significant other at home: No Do you presently have visiting nurse or other home services: Yes ([employer] 4 hours per week) Patient Tobacco Use Status: Former Tobacco user Quit Date: 2000 Tobacco use type: Cigarette Advance Directives: Yes Advance Directives on File: Yes Advance Directives Date on File: 11/11/21 service: No Current occupational status: retired Current occupation: rt handed <JOYCE Rebolledo - Last Filed: 12/22/22 16:52> Physical Exam Vital Signs: Vital Signs: Last Vital Signs Temp 99.0 F 12/22/22 15:36 Pulse 97 12/22/22 15:36 Resp 18 12/22/22 15:36 BP 151/91 H 12/22/22 15:36 Pulse Ox 95 12/22/22 15:36 O2 Del Method Room Air 12/22/22 15:36 BMI result Body Mass Index 38.9 <Yasmin Sadler PA - Last Filed: 12/22/22 16:52> Vital Signs: Last Vital Signs Temp 99.0 F 12/22/22 15:36 Pulse 97 12/22/22 15:36 Resp 18 12/22/22 15:36 BP 151/91 H 12/22/22 15:36 Pulse Ox 95 12/22/22 15:36 O2 Del Method Room Air 12/22/22 15:36 BMI result Body Mass Index 38.9 <Cecile Gamez NP - Last Filed: 12/22/22 16:40> Const: General: cooperative, healthy appearing, comfortable and no acute distress <Cecile Gamez NP - Last Filed: 12/22/22 16:40> Orientation/consciousness: patient oriented x3 <Cecile Gamez NP - Last Filed: 12/22/22 16:40> Limitations: no limitations <Cecile Gamez NP - Last Filed: 12/22/22 16:40> HEENT: Head: Yes normal to inspection <Cecile Gamez NP - Last Filed: 12/22/22 16:40> Ears: hearing grossly normal bilaterally <Cecile Gamez NP - Last Filed: 12/22/22 16:40> General nose exam: Normal external nose present <Cecile Gamez NP - Last Filed: 12/22/22 16:40> Face and sinus: Yes normal facial exam <Cecile Gamez NP - Last Filed: 12/22/22 16:40> Mouth: Normal oral and palatal mucosa present <Cecile Gamez NP - Last Filed: 12/22/22 16:40> Throat: Yes posterior oropharynx normal <Cecile Gamez NP - Last Filed: 12/22/22 16:40> Eyes: General: appearance normal, both eyes and all related structures <Cecile Gamez NP - Last Filed: 12/22/22 16:40> Pupils: Equal, round and reactive pupils present <Cecile Gamez NP - Last Filed: 12/22/22 16:40> Neck: Neck: Yes normal visual inspection <Cecile Gamez, MANAGER EMERGENCY DEPARTMENT - Last Filed: 12/22/22 16:40> Chest: Chest palpation & inspection: normal inspection of the chest <Cecile Gamez MANAGER EMERGENCY DEPARTMENT - Last Filed: 12/22/22 16:40> Resp: Effort & Inspection: normal respiratory effort <Cecile Gamez MANAGER EMERGENCY DEPARTMENT - Last Filed: 12/22/22 16:40> Auscultation: clear to auscultation bilaterally <Cecile Gamez, MANAGER EMERGENCY DEPARTMENT - Last Filed: 12/22/22 16:40> Cardio: Rate: regular rate <Cecile Gamez MANAGER EMERGENCY DEPARTMENT - Last Filed: 12/22/22 16:40> Rhythm: regular rhythm <Cecile Gamez, MANAGER EMERGENCY DEPARTMENT - Last Filed: 12/22/22 16:40> Peripheral pulses: Peripheral pulses 2+ throughout <Cecile Gamez MANAGER EMERGENCY DEPARTMENT - Last Filed: 12/22/22 16:40> GI: Inspection: Yes normal to inspection <Cecile Gamez, MANAGER EMERGENCY DEPARTMENT - Last Filed: 12/22/22 16:40> Palpation (GI): Soft to palpation and nontender <Cecile Gamez MANAGER EMERGENCY DEPARTMENT - Last Filed: 12/22/22 16:40> Auscultation: normal bowel sounds <Cecile Gamez, MANAGER EMERGENCY DEPARTMENT - Last Filed: 12/22/22 16:40> Back/Spine/Pelvis: Thoracic/Lumbar Spine: thoracic and lumbar spine normal to inspection <Cecile Gaemz MANAGER EMERGENCY DEPARTMENT - Last Filed: 12/22/22 16:40> Skin: General skin exam: no rashes or lesions noted <Cecile Gamez MANAGER EMERGENCY DEPARTMENT - Last Filed: 12/22/22 16:40> Neuro: General: patient oriented x3, no focal motor deficits and normal sensation to monofilament <Cecile Gamez, MANAGER EMERGENCY DEPARTMENT - Last Filed: 12/22/22 16:40> Cranial nerves: Yes Equal, round and reactive pupils present <Cecile Gamez MANAGER EMERGENCY DEPARTMENT - Last Filed: 12/22/22 16:40> Cognition (Neuro): normal cognition <Cecile Gamez NP - Last Filed: 12/22/22 16:40> Speech: No Abnormal speech present <Cecile Gamez NP - Last Filed: 12/22/22 16:40> Gait exam (Neuro): Normal gait present <Cecile Gamez NP - Last Filed: 12/22/22 16:40> Motor exam (neuro): 5/5 motor strength present throughout <Cecile Gamez NP - Last Filed: 12/22/22 16:40> Extrem: Other: Over the dorsal hand on the lateral aspect there is some mild tenderness. There is also some tenderness over the snuffbox with small area of ecchymosis noted at the base of the scaphoid. Patient is able to perform passive and active range of motion of the hand and wrist with no difficulty. Palpable radial and ulnar pulses. Normal sensation. <Cecile Gamez NP - Last Filed: 12/22/22 16:40> General: Yes normal to inspection <Cecile Gamez NP - Last Filed: 12/22/22 16:40> Course Course Course Narrative: RME--72yo F w/PMHx HTN, IBS, osteoarthritis, paroxysmal AFib on Eliquis, HLD, c/o left triquetral fracture with small intra-articular avulsion of the scaphoid bone s/p slip and fall on 12/08/22. Patient was evaluated in [facility] after incident at . Patient requesting repeat XRs to make sure she is healing correctly Patient with paperwork from the . Currently in splint XRs ordered <JOYCE Rebolledo - Last Filed: 12/22/22 16:52> Reevaluation(s) Reevaluation #1: X-rays are normal. Patient may have a small scaphoid fracture or scapholunate ligamental injury. Therefore she was placed in a Velcro thumb spica splint. I recommend she follow-up with orthopedics outpatient. Reviewed worrisome signs and symptoms when to return to the emergency room. Comfortable plan for discharge home. <Cecile Gamez NP - Last Filed: 12/22/22 16:40> Medical Decision Making Medical Decision Making MDM Narrative: 72 yo female right hand dominant here with complaints of left hand/wrist pain with known fracture diagnosed 4/5 at outside . Here today as she would like to extremity checked, she has no scheduled follow-up with orthopedics. On exam patient does some tenderness over the dorsal hand. She also some tenderness over the snuffbox and there is small area of ecchymosis at the base of the scaphoid area. Patient does have intact passive and active range of motion. Repeat x-rays order <Cecile Gamez NP - Last Filed: 12/22/22 16:40> Differential Diagnosis Differential Diagnoses: The differential diagnosis associated with the presentation includes <Cecile Gamez NP - Last Filed: 12/22/22 16:40> fracture, ligamental injury <Cecile Gamez NP - Last Filed: 12/22/22 16:40> Independent Interpretation I performed an independent interpretation of an: Plain X-Ray <Cecile Gamez NP - Last Filed: 12/22/22 16:40> Interpretation: I independently reviewed the x-rays and agree with radiologist's report <Cecile Gamez NP - Last Filed: 12/22/22 16:40> Radiology Impression Discussion of test interpretation with radiology: I have reviewed the radiologist's reading. <Cecile Gamez NP - Last Filed: 12/22/22 16:40> Radiologist Impression: FINDINGS: Osteopenia. There is no acute fracture identified. There are severe degenerative changes of the triscaphe joint with sclerosis and joint space narrowing. Narrowing at the first carpometacarpal joint with osteophyte formation. Small osteophytes throughout the interphalangeal joints. No displaced triquetral fracture seen. XR/XR hand wrist LT IMPRESSION: No acute fracture or malalignment. Degenerative changes of the hand and wrist, severe at the triscaphe joint. No scaphoid fracture seen. No displaced triquetral fracture seen on this study. ? <Cecile Gamez NP - Last Filed: 12/22/22 16:40> Discharge Plan Discharge Clinical Impression: Scapholunate ligament injury, no instability <JOYCE Rebolledo - Last Filed: 04/20/23 16:52> Patient Disposition: Home, Self-Care <JOYCE Rebolledo - Last Filed: 12/22/22 16:52> Instructions: Wrist Sprain (ED) <JOYCE Rebolledo - Last Filed: 12/22/22 16:52> Additional Instructions: Your x-rays today show no triquetral fracture. You do have some bruising and tenderness around your scaphoid lunate ligament so it is possible that you may have a ligament injury from her fall. Use the Velcro splint for comfort Please follow-up with the hand surgeon Continue with ice, tylenol for discomfort <JOYCE Rebolledo - Last Filed: 12/22/22 16:52> Prescriptions: No Action (DME) walker Misc See Rx Instructions .MEDSUPPLY Qty: 1 0RF Rx Instructions: Folding Front wheeled walker (DME) walker Misc See Rx Instructions .MEDSUPPLY Qty: 1 0RF Rx Instructions: Rollator walker with seat and breaks Eliquis 5 mg tablet 5 mg PO BID Qty: 60 5RF melatonin 3 mg Tablet 9 mg PO BEDTIME magnesium hydroxide [Milk of Magnesia] 400 mg/5 mL Suspension 30 ml PO DAILY PRN (Reason: Constipation) acetaminophen 500 mg Tablet 1,000 mg PO TID prazosin 2 mg capsule 2 mg PO BEDTIME clonazepam 2 mg tablet 2 mg PO BID PRN (Reason: Anxiety) venlafaxine 75 mg capsule,extended release 24hr 75 mg PO DAILY gabapentin 300 mg capsule 300 mg PO BEDTIME pantoprazole 40 mg tablet,delayed release (DR/EC) 40 mg PO DAILY@0630 metoprolol succinate 50 mg tablet extended release 24 hr 50 mg PO DAILY dextroamphetamine-amphetamine 15 mg tablet 1 tab PO DAILY solifenacin 5 mg tablet 5 mg PO DAILY (DME) Neoprene wrist sleeve See Rx Instructions .Route .MEDSUPPLY Qty: 1 0RF Rx Instructions: As directed cholecalciferol (vitamin D3) 25 mcg (1,000 unit) capsule 25 mcg PO DAILY <JOYCE Rebolledo - Last Filed: 12/22/22 16:52> Referrals: [facility]Provider Group] - 10 days <JOYCE Rebolledo - Last Filed: 12/22/22 16:52>
--- NOTE | 2022-12-22 16:44 | PC.NURSE ---
Provider at bedside with patient, reviewing results. Pt reporting that she had a fall on 12/08 back into her fireplace, reports she has been dealing with the wrist pain since the fall, has her own orthopedic she wants to follow-up with, education given on D/C
== END 2022-12-22 17:00 | disposition home or self-care (01) ==
PROVIDERS: Emergency Provider Emergency Medicine; PCP Internal Medicine
DX: S63.392A Traumatic rupture of other ligament of left wrist, initial encounter (principal); W19.XXXA Unspecified fall, initial encounter; Y93.9 Activity, unspecified; Y92.9 Unspecified place or not applicable; Y99.9 Unspecified external cause status
CPT/HCPCS: 73110; 73130; 99282; 99283

== ENCOUNTER 2023-01-27 17:12 | Emergency (ER) | payer MEDICARE, OTHER, SELFPAY ==
--- NOTE | ~2023-01-27 | XR_ITS ---
EXAMINATION: XR CHEST CLINICAL INFORMATION: Chest pain COMPARISON: X-ray 09/01/2022 TECHNIQUE: 2 views of the chest were obtained. FINDINGS: Rotated positioning. The cardiomediastinal silhouette is within normal limits. The lungs are well expanded. Stable linear atelectasis/scarring in the left midlung. There is no focal consolidation, edema. Left costophrenic angle blunting may reflect pleural thickening or trace effusion. No pneumothorax. No acute osseous abnormality. Thoracic spine degeneration. XR/XR chest 2V IMPRESSION: Left costophrenic angle pleural thickening versus trace effusion. No acute process otherwise seen.
--- NOTE | 2023-01-27 17:14 | ECG_ITS ---
Test Reason : chest pain Blood Pressure : / mmHG Vent. Rate : 088 BPM Atrial Rate : 088 BPM P-R Int : 150 ms QRS Dur : 080 ms QT Int : 342 ms P-R-T Axes : 047 -11 -02 degrees QTc Int : 413 ms Normal sinus rhythm Septal infarct , age undetermined Abnormal ECG When compared with ECG of 17-AUG-2022 12:32, Septal infarct is now Present - could be related to lead placement Referred By: Irma Cross Electronically Signed By:KYRA ASHBY
[2023-01-27 17:26] VITALS: BP 141/66; PULSE 86; RESP 17; TEMP 36.5; O2SAT 95; BMI 38.3
[2023-01-27 17:31] LABS: MANUAL DIFF FLAG NO
--- NOTE | 2023-01-27 17:36 | ED_ITS ---
HPI - General Adult General Chief complaint: General Medical Stated complaint: Chest pain Time Seen by Provider: 01/27/23 18:41 Related Data Home Medications Medication Instructions Recorded Confirmed clonazepam 2 mg tablet 2 mg PO BID PRN Anxiety 07/14/20 10/20/22 gabapentin 300 mg capsule 300 mg PO BEDTIME 07/14/20 10/20/22 metoprolol succinate 50 mg 50 mg PO DAILY 07/14/20 10/20/22 tablet,extended release 24 hr pantoprazole 40 mg tablet,delayed 40 mg PO DAILY@0630 07/14/20 10/20/22 release prazosin 2 mg capsule 2 mg PO BEDTIME 07/14/20 10/20/22 venlafaxine 75 mg capsule,extended 75 mg PO DAILY 07/14/20 10/20/22 release 24 hr dextroamphetamine-amphetamine 15 1 tab PO DAILY 08/09/21 10/20/22 mg tablet solifenacin 5 mg tablet 5 mg PO DAILY 08/09/21 10/20/22 acetaminophen 500 mg tablet 1,000 mg PO TID 10/21/21 10/20/22 magnesium hydroxide 400 mg/5 mL 30 ml PO DAILY PRN Constipation 11/11/21 10/20/22 oral suspension (Milk of Magnesia) melatonin 3 mg tablet 9 mg PO BEDTIME 11/11/21 10/20/22 cholecalciferol (vitamin D3) 25 25 mcg PO DAILY 12/15/21 10/20/22 mcg (1,000 unit) capsule Previous Rx's Medication Instructions Recorded Neoprene wrist sleeve #1 ea 07/08/21 walker #1 ea 11/25/21 walker #1 ea 06/02/22 apixaban 5 mg tablet (Eliquis) 5 mg PO BID #60 tabs 06/14/22 lorazepam 1 mg tablet (Ativan) 1 mg PO BEDTIME PRN anxiety #10 01/27/23 tabs Allergies Allergy/AdvReac Type Severity Reaction Status Date / Time No Known Allergies Allergy Verified 12/22/22 15:36 [No Known Allergies*] [facility] Past Medical History Medical History Abnormal gait Arthritis of left knee Gait disturbance HTN (hypertension) Hx of basal cell carcinoma IBS (irritable bowel syndrome) Lumbar spinal stenosis Major depression, recurrent, chronic Osteoarthritis Osteopenia Paroxysmal atrial fibrillation Pure hypercholesterolemia Severe major depression without psychotic features Vitamin D deficiency Surgical History History of esophagogastroduodenoscopy (EGD) Hx of appendectomy Hx of breast biopsy Hx of colonoscopy Hx of hysterectomy Family History Family History Father No problems noted. Mother No problems noted. 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) Patient Tobacco Use Status: Former Tobacco user Quit Date: 2000 Tobacco use type: Cigarette Advance Directives: Yes Advance Directives on File: Yes Advance Directives Date on File: 11/11/21 service: No Current occupational status: retired Current occupation: rt handed Physical Exam ED Vital Signs: Vital Signs - 24 hr 01/27/23 17:26 01/27/23 20:16 Temperature 97.7 F 97.6 F Pulse Rate 86 69 Respiratory Rate 17 16 Blood Pressure 141/66 H 142/72 H Pulse Oximetry 95 97 Oxygen Delivery Method Room Air Room Air BMI result Body Mass Index 38.3 Course Course Course Narrative: RME performed by Irma Cross PA-C. Patient is a 72 year old assigned female at presenting to the emergency department with chest pain. Labs, imaging, and EKG ordered. Patient placed back in the waiting room pending room availability and results. Medical Decision Making Lab Data MDM Lab Attestation statement: I reviewed the patient's lab results. 01/27/23 17:25 01/27/23 17:26 Labs: Lab Results 01/27/23 01/27/23 01/27/23 Range/Units 17:25 17:25 17:25 WBC 12.5 H (4.8-10.8) X10*3/uL RBC 4.75 (4.20-5.50) X10*6/uL Hgb 13.9 (12.0-16.0) g/dl Hct 42.4 (37.0-47.0) % MCV 89.3 (80.0-98.0) fL MCH 29.3 (27.0-33.0) pg MCHC 32.8 (31.0-35.0) g/dl RDW 13.8 (11.0-16.0) % Plt Count 321 (160-400) X10*3/uL MPV 9.1 L (9.4-12.3) fL Immature Gran % (Auto) 0.3 (0.0-0.4) % Neut % (Auto) 60.9 (45-73) % Lymph % (Auto) 27.7 (20-40) % [place] % (Auto) 9.9 (2-11) % Eos % (Auto) 0.8 (0-4) % Baso % (Auto) 0.4 (0-2) % Lymph # (Auto) 3.5 (1.2-4.9) X10*3/uL [place] # (Auto) 1.2 (0.1-1.2) X10*3/uL Eos # (Auto) 0.1 (0.0-0.4) X10*3/uL Baso # (Auto) 0.1 (0.0-0.2) X10*3/uL Abs Immat Gran (auto) 0.04 H (0.00-0.03) X10*3/uL Absolute Neuts (auto) 7.6 (2.0-8.3) x10*3/uL Absolute Nucleated RBC 0.000 (0.0-0.012) X10*3/uL Nucleated RBC % (auto) 0.0 (0.0-0.2) /100WBC Sodium (135-145) mmol/L Potassium (3.3-5.1) mmol/L Chloride (96-108) mmol/L Carbon Dioxide (22-29) mmol/L Anion Gap (12-20) BUN (9-16) mg/dL Creatinine (0.5-1.4) mg/dL Estim Creat Clear Calc Estimated GFR Random Glucose (60-115) mg/dL Calcium (8.4-10.2) mg/dL Magnesium (1.6-2.6) mg/dL Total Bilirubin (0.0-1.0) mg/dL AST (5-31) U/L ALT (0-31) U/L Alkaline Phosphatase (39-117) U/L Troponin I High Sens 4.0 (<3.5-17.0) ng/L B-Natriuretic Peptide 165 H (<100) pg/mL Total Protein (6.5-8.0) g/dL Albumin (3.5-5.0) g/dL 01/27/ Range/Units 17:26 WBC (4.8-10.8) X10*3/uL RBC (4.20-5.50) X10*6/uL Hgb (12.0-16.0) g/dl Hct (37.0-47.0) % MCV (80.0-98.0) fL MCH (27.0-33.0) pg MCHC (31.0-35.0) g/dl RDW (11.0-16.0) % Plt Count (160-400) X10*3/uL MPV (9.4-12.3) fL Immature Gran % (Auto) (0.0-0.4) % Neut % (Auto) (45-73) % Lymph % (Auto) (20-40) % [place] % (Auto) (2-11) % Eos % (Auto) (0-4) % Baso % (Auto) (0-2) % Lymph # (Auto) (1.2-4.9) X10*3/uL [place] # (Auto) (0.1-1.2) X10*3/uL Eos # (Auto) (0.0-0.4) X10*3/uL Baso # (Auto) (0.0-0.2) X10*3/uL Abs Immat Gran (auto) (0.00-0.03) X10*3/uL Absolute Neuts (auto) (2.0-8.3) x10*3/uL Absolute Nucleated RBC (0.0-0.012) X10*3/uL Nucleated RBC % (auto) (0.0-0.2) /100WBC Sodium 140 (135-145) mmol/L Potassium 4.4 (3.3-5.1) mmol/L Chloride 107 (96-108) mmol/L Carbon Dioxide 26 (22-29) mmol/L Anion Gap 11 L (12-20) BUN 19 H (9-16) mg/dL Creatinine 0.66 (0.5-1.4) mg/dL Estim Creat Clear Calc 98.9 Estimated GFR > 60 Random Glucose 99 (60-115) mg/dL Calcium 10.1 (8.4-10.2) mg/dL Magnesium 2.1 (1.6-2.6) mg/dL Total Bilirubin 0.4 (0.0-1.0) mg/dL AST 15 (5-31) U/L ALT 13 (0-31) U/L Alkaline Phosphatase 102 (39-117) U/L Troponin I High Sens (<3.5-17.0) ng/L B-Natriuretic Peptide (<100) pg/mL Total Protein 6.4 L (6.5-8.0) g/dL Albumin 3.8 (3.5-5.0) g/dL Independent Interpretation I performed an independent interpretation of an: EKG Interpretation: Normal sinus rhythm heart rate 88 beats per min normal interval normal axis no acute ischemic change Discharge Plan Discharge Clinical Impression: Chest pain, Atrial fibrillation and flutter Patient Disposition: Home, Self-Care Instructions: A-fib (Atrial Fibrillation) (ED), Chest Pain (ED) Additional Instructions: Continue taking medications Ativan to relax and sleep Follow with PCP Prescriptions: New lorazepam [Ativan] 1 mg tablet 1 mg PO BEDTIME PRN (Reason: anxiety) Qty: 10 0RF No Action (DME) walker Misc See Rx Instructions .MEDSUPPLY Qty: 1 0RF Rx Instructions: Folding Front wheeled walker (DME) walker Misc See Rx Instructions .MEDSUPPLY Qty: 1 0RF Rx Instructions: Rollator walker with seat and breaks Eliquis 5 mg tablet 5 mg PO BID Qty: 60 5RF melatonin 3 mg Tablet 9 mg PO BEDTIME magnesium hydroxide [Milk of Magnesia] 400 mg/5 mL Suspension 30 ml PO DAILY PRN (Reason: Constipation) acetaminophen 500 mg Tablet 1,000 mg PO TID prazosin 2 mg capsule 2 mg PO BEDTIME clonazepam 2 mg tablet 2 mg PO BID PRN (Reason: Anxiety) venlafaxine 75 mg capsule,extended release 24hr 75 mg PO DAILY gabapentin 300 mg capsule 300 mg PO BEDTIME pantoprazole 40 mg tablet,delayed release (DR/EC) 40 mg PO DAILY@0630 metoprolol succinate 50 mg tablet extended release 24 hr 50 mg PO DAILY dextroamphetamine-amphetamine 15 mg tablet 1 tab PO DAILY solifenacin 5 mg tablet 5 mg PO DAILY (DME) Neoprene wrist sleeve See Rx Instructions .Route .MEDSUPPLY Qty: 1 0RF Rx Instructions: As directed cholecalciferol (vitamin D3) 25 mcg (1,000 unit) capsule 25 mcg PO DAILY
[2023-01-27 17:43] LABS: Basophils Absolute Auto 0.1 X10*3/uL (0.0-0.2); Basophils Percent Auto 0.4 % (0-2); Eosinophils Absolute Auto 0.1 X10*3/uL (0.0-0.4); Eosinophils Percent Auto 0.8 % (0-4); Hematocrit 42.4 % (37.0-47.0); Hemoglobin 13.9 g/dl (12.0-16.0); Imm Gran Abs Auto 0.04 X10*3/uL (0.00-0.03); Imm Gran Pct Auto 0.3 % (0.0-0.4); Lymphocytes Absolute Auto 3.5 X10*3/uL (1.2-4.9); Lymphocytes Percent Auto 27.7 % (20-40); Mean Corpuscular HGB Conc 32.8 g/dl (31.0-35.0); Mean Corpuscular Hemoglobin 29.3 pg (27.0-33.0); Mean Corpuscular Volume 89.3 fL (80.0-98.0); Mean Platelet Volume 9.1 fL (9.4-12.3); Monocytes Absolute Auto 1.2 X10*3/uL (0.1-1.2); Monocytes Percent Auto 9.9 % (2-11); Neutrophils Absolute Auto 7.6 x10*3/uL (2.0-8.3); Neutrophils Percent Auto 60.9 % (45-73); Platelet Count 321 X10*3/uL (160-400); Red Blood Count 4.75 X10*6/uL (4.20-5.50); Red Cell Distribution Width 13.8 % (11.0-16.0); White Blood Count 12.5 X10*3/uL (4.8-10.8)
[2023-01-27 17:52] LABS: Alanine Aminotransferase 13 U/L (0-31); Albumin Level 3.8 g/dL (3.5-5.0); Alkaline Phosphatase 102 U/L (39-117); Anion Gap 11 (12-20); Aspartate Amino Transferase 15 U/L (5-31); Bilirubin Total 0.4 mg/dL (0.0-1.0); Blood Urea Nitrogen 19 mg/dL (9-16); Calcium 10.1 mg/dL (8.4-10.2); Carbon Dioxide 26 mmol/L (22-29); Chloride 107 mmol/L (96-108); Creatinine Clr Calc Pharmacy 98.9; Estimated Glomerular Filt Rate > 60; Glucose Random 99 mg/dL (60-115); Magnesium 2.1 mg/dL (1.6-2.6); Potassium 4.4 mmol/L (3.3-5.1); Sodium 140 mmol/L (135-145); Total Protein 6.4 g/dL (6.5-8.0)
[2023-01-27 17:54] LABS: B Type Natriuretic Peptide 165 pg/mL (<100)
[2023-01-27 20:16] VITALS: BP 142/72; PULSE 69; RESP 16; TEMP 36.4; O2SAT 97
[2023-01-27] MEDS: LORazepam 1 MG TABLET PO (20:50)
--- NOTE | 2023-01-27 20:54 | PC.NURSE ---
pt a&ox3, vss, medicated per MAR, resting quietly in room.
== END 2023-01-27 21:07 | disposition home or self-care (01) ==
PROVIDERS: Physician Assistant Medical; Emergency Provider Internal Medicine
DX: R07.9 Chest pain, unspecified (principal); I48.91 Unspecified atrial fibrillation; I48.92 Unspecified atrial flutter; I48.0 Paroxysmal atrial fibrillation; I10 Essential (primary) hypertension; E78.00 Pure hypercholesterolemia, unspecified; Z87.891 Personal history of nicotine dependence; Z79.01 Long term (current) use of anticoagulants; Z79.899 Other long term (current) drug therapy
CPT/HCPCS: 36415; 71046; 80053; 83735; 83880; 84484; 85025; 93005; 99283; 99284

== ENCOUNTER 2023-09-12 08:57 | Outpatient (AMB) | payer MEDICARE, OTHER, SELFPAY ==
--- NOTE | 2023-09-12 09:00 | A.OFFVIS_ITS ---
Intake Vital Signs 09/12/23 09:01 Height 5 ft 7 in Weight 212 lb 15.465 oz BMI 33.4 BP 134/82 Blood Pressure Location Lt brachial Position Sitting Pulse 82 Pulse Source Monitor Intake Visit Reasons: overdue follow up Assistant Corporate Secretary Required: No Allergies No Known Allergies [No Known Allergies*] Allergy (Verified 09/12/23 09:09) Medication List - Last Reconciled 09/12/23 by Ana Maria Zuñiga NP-C acetaminophen 1,000 mg PO TID apixaban (Eliquis) 5 mg PO BID cholecalciferol (vitamin D3) 25 mcg PO DAILY clonazepam 2 mg PO BID PRN dextroamphetamine-amphetamine 15 mg 1 tab PO DAILY gabapentin 300 mg PO BEDTIME hydroxyzine pamoate 25 mg PO BEDTIME lorazepam (Ativan) 1 mg PO BEDTIME PRN magnesium hydroxide (Milk of Magnesia) 30 mL PO DAILY PRN melatonin 9 mg PO BEDTIME metoprolol succinate ER 50 mg PO DAILY [Neoprene wrist sleeve As directed] pantoprazole 40 mg PO DAILY@0630 prazosin 2 mg PO BEDTIME prazosin 5 mg PO BEDTIME solifenacin 5 mg PO DAILY venlafaxine ER 75 mg PO DAILY walker Folding Front wheeled walker walker Rollator walker with seat and breaks HPI overdue follow up HPI Details Lucita is a 72-year-old female past medical history of hypertension, hyperlipidemia, symptomatic paroxysmal atrial fibrillation who presents for follow-up. Today she reports that she has been doing well since her last visit on 10/20/2022. She has not had any known recurrent atrial fibrillation. She will feel a brief intermittent flutter in her chest. No chest discomfort at rest or with activity. No concerning shortness of breath. No PND, orthopnea or edema. No presyncope, syncope. She did have some unsteadiness while on a depression medication which contributed to a fall with a fractured left arm. She has since recovered. She is taking her meds as directed. No bleeding issues reported. She has had lab work recently done near her home on the [facility]. [facility] Medical History (Updated 09/12/23 @ 10:11 by Ana Maria Zuñiga, SQL PROGRAMMER ANALYST-C) Arthritis of left knee Gait disturbance HTN (hypertension) Osteoarthritis IBS (irritable bowel syndrome) Major depression, recurrent, chronic Vitamin D deficiency Abnormal gait Lumbar spinal stenosis Pure hypercholesterolemia Severe major depression without psychotic features Hx of basal cell carcinoma Osteopenia Paroxysmal atrial fibrillation Surgical History History of esophagogastroduodenoscopy (EGD) Hx of colonoscopy Hx of breast biopsy Hx of hysterectomy Hx of appendectomy Family History Father No problems noted. Mother No problems noted. Social History Are you a primary childcare center director to a significant other at home: No Do you presently have visiting nurse or other home services: Yes ([employer] CONSULTANT 4 hours per week) Comment: aware of trip hazard Patient Tobacco Use Status: Former Tobacco user Quit Date: 2000 Tobacco use type: Cigarette Advance Directives Date on File: 11/11/21 service: No Current occupational status: retired Current occupation: rt handed Review of Systems Const All systems reviewed & are unremarkable except as noted in HPI and below ENT Denies dizziness Card Details: Brief flutter in chest at times Denies chest pain, Denies chest pain at rest, Denies chest pain with activity, Denies rapid heart rate, Denies pedal edema, Denies edema, Denies leg edema, Denies lightheadedness, Denies palpitations, Denies dyspnea, Denies dyspnea on exertion and Denies orthopnea Resp Denies cough, Denies dyspnea and Denies dyspnea on exertion GI Denies hematochezia and Denies change in stool character Musc Denies abnormal gait, Denies limited range of motion, Denies muscle cramps, Denies muscle weakness, Denies numbness, Denies radiating pain into limb, Denies stiffness and Denies tingling Neuro Denies abnormal gait, Denies dizziness, Denies numbness and Denies tingling Endo Denies palpitations Physical Exam Vital Signs: Last Vital Signs Pulse 82 09/12/23 09:01 BP 134/82 09/12/23 09:01 BMI result Body Mass Index 33.4 Const General: cooperative, healthy appearing, comfortable and no acute distress Orientation/consciousness: patient oriented x3 Neck Neck: Yes normal visual inspection Resp Effort & Inspection: normal respiratory effort Auscultation: clear to auscultation bilaterally, no crackles, no rales, no rhonchi and no wheezes Cardio Jugular venous distension: no JVD Rate: regular rate Rhythm: regular rhythm Heart sounds: S1 normal heart sound present, S2 normal heart sound present, no murmurs and no rubs Neuro General: patient oriented x3 Extrem General: Yes normal to inspection, No no pedal edema and No calf tenderness Psych Appearance: grossly normal Mental Status: mental status grossly normal Speech and movement: Normal speech and movement present Office Procedures EKG Details: Today, read by me, normal sinus rhythm, septal Q-wave unchanged from prior EKG, no acute ST or T-wave abnormalities, rate 82, QTC 427 millisecond [id number], Complete Assessment & Plan Assessment & Plan (1) Paroxysmal atrial fibrillation: Code(s): I48.0 - Paroxysmal atrial fibrillation Plan: History of paroxysmal atrial fibrillation, symptomatic. Done metoprolol for heart rate control. EKG done today showing normal sinus rhythm with no acute ST or T-wave abnormalities, rate 82. Rate 88. Last echocardiogram done 06/19/2020 showing EF 55-60%, no regional wall motion abnormalities, mildly dilated ascending aorta, normal atrial sizes. A nuclear stress test done on 10/11/2021 was normal. Today she reports brief intermittent fluttering in her chest. No sustained rapid or irregular rates consistent with AFib. She is on her Eliquis for anticoagulation. No bleeding issues reported. She tells me she has had labs done by her PCP near her home on [facility]. Current Eliquis dose is appropriate for her weight and age. Continue current med management. Cardiology follow-up in 6-8 months, sooner if needed. (2) Chronic anticoagulation: Code(s): Z79.01 - penitentiary (current) use of anticoagulants Plan: As above. No bleeding issues reported (3) HTN (hypertension): Code(s): I10 - Essential (primary) hypertension Plan: Well controlled at this time. No med changes made. Plan Time spent on chart review, documentation, interview and assessment Coding Level of Care Code Est Pt Level 4 (87230) Diagnoses Paroxysmal atrial fibrillation I48.0 Chronic anticoagulation Z79.01 HTN (hypertension) I10 CPT Codes EKG - CPT: 05318-[id number], Complete ([id number]) Time Spent (min) 30
[2023-09-12 09:01] VITALS: BP 134/82; PULSE 82; BMI 33.4
== END 2023-09-12 09:44 | disposition home or self-care (01) ==
PROVIDERS: Visit Provider Nurse Practitioner Family
DX: I48.0 Paroxysmal atrial fibrillation (principal); Z79.01 Long term (current) use of anticoagulants; I10 Essential (primary) hypertension
CPT/HCPCS: 93010; 99214

== ENCOUNTER → 2023-09-12 08:57 | Outpatient (BNVA) | payer MEDICARE, OTHER, SELFPAY | PROVIDERS: Visit Provider Nurse Practitioner Family | DX: I48.0 Paroxysmal atrial fibrillation (principal); I10 Essential (primary) hypertension; Z79.01 Long term (current) use of anticoagulants | CPT/HCPCS: 93005; 99212 ==

== ENCOUNTER 2023-09-28 13:19 | Outpatient (AMB) | payer MEDICARE, OTHER, SELFPAY ==
--- NOTE | 2023-09-28 13:40 | MHC.OFFVIS ---
Intake Vital Signs 09/28/23 13:41 Height 5 ft 7 in Weight 212 lb BMI 33.2 Intake Visit Reasons: OV-Left Knee Pain Intake Note: Lucita is a 71 year old woman who presents today for a follow up of left knee OA. She continues to have episodes of falling and this has increased the pain in her left knee. She ambulates with an assistive cane but feels unstable while walking. Was sent for a referral to Neuro as issues with balance were believed to be equilibrium related. Patient states she would like to discuss injection today. 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 She complains of more frequent episodes of falling, despite using an assistive cane. She reports still feeling unstable and that her knee pain is made worse by her falls. She says she was referred to Neurology to assess the etiology of her balance issues. These have been resolved however with medication management. She has a hx of right TKA, DOS: 11/2021. [facility] Medical History (Updated 09/12/23 @ 10:11 by NAGA Lauren) Arthritis of left knee Gait disturbance HTN (hypertension) Osteoarthritis IBS (irritable bowel syndrome) Major depression, recurrent, chronic Vitamin D deficiency Abnormal gait Lumbar spinal stenosis Pure hypercholesterolemia Severe major depression without psychotic features Hx of basal cell carcinoma Osteopenia Paroxysmal atrial fibrillation Surgical History History of esophagogastroduodenoscopy (EGD) Hx of colonoscopy Hx of breast biopsy Hx of hysterectomy Hx of appendectomy Family History Father No problems noted. Mother No problems noted. 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) Comment: aware of trip hazard Patient Tobacco Use Status: Former Tobacco user Quit Date: 2000 Tobacco use type: Cigarette Advance Directives Date on File: 11/11/21 service: No Current occupational status: retired Current occupation: rt handed Review of Systems Const All systems reviewed & are unremarkable except as noted in HPI and below Physical Exam Vital Signs: BMI result Body Mass Index 33.2 Const General: no acute distress, alert and awake Orientation/consciousness: patient oriented x3 HEENT Head: Yes normocephalic and Yes atraumatic Eyes EOM: EOMs intact bilaterally Resp Effort & Inspection: normal respiratory effort and able to speak in complete sentences Cardio Jugular venous distension: no JVD Skin General skin exam: turgor normal Rashes: no rashes Neuro General: patient oriented x3 Extrem Other: right knee inc c.d.i 0-125 deg motion and stable arc Left knee with medial and lateral comaprtment TTP Psych Appearance: grossly normal Affect: normal affect Attitude: cooperative Office Procedures Joint Injection/Drain Joint Injection/Drain Details: Injected 1 mL of Decadron and 3 mL 1% lidocaine and 3 mL of 0.25% Marcaine. Site was prepped using aseptic technique. Patient tolerated the procedure well. Primary Site: left knee Approach Used: anterolateral Coding 03224 - Large joint Procedure code (CPT) selection complete Results Reviewed Results Reviewed: I personally reviewed relevant radiographs. Right total knee arthroplasty in expected post operative position with no hardware complications or evidence of loosening Left knee OA Assessment & Plan Assessment & Plan (1) Arthritis of left knee: Code(s): M17.12 - Unilateral primary osteoarthritis, left knee Plan: Injected left knee Pain currently tolerable (2) Nondisplaced fracture of distal end of radius: Code(s): S52.509A - Unspecified fracture of the lower end of unspecified radius, initial encounter for closed fracture Plan: Fragility fracture after low velocity fall. DEXA Plan Prepared for Higinio Hennessy MD by Dany Oviedo, medical scientific liaison, on 09/28/23 at 1:45 PM, EST. Orders: Orders XR DEXA appendicular skeleton Today S52.509A - Unspecified fracture of the lower end of unspecified radius, initial encounter for closed fracture Coding Level of Care Code Est Pt Level 4 (45676) Diagnoses Arthritis of left knee M17.12 Nondisplaced fracture of distal end of radius S52.509A CPT Codes Coding - 17332 Large joint: 68325 - Large joint ([id number])
[2023-09-28 13:41] VITALS: BMI 33.2
== END 2023-09-28 14:22 | disposition home or self-care (01) ==
PROVIDERS: Visit Provider Orthopaedic Surgery
DX: M17.12 Unilateral primary osteoarthritis, left knee (principal); S52.502A Unspecified fracture of the lower end of left radius, initial encounter for closed fracture
CPT/HCPCS: 20610; 99214

== ENCOUNTER → 2023-09-28 13:19 | Outpatient (BNVA) | payer MEDICARE, OTHER, SELFPAY | PROVIDERS: Visit Provider Orthopaedic Surgery | DX: M17.12 Unilateral primary osteoarthritis, left knee (principal); S52.509A Unspecified fracture of the lower end of unspecified radius, initial encounter for closed fracture | CPT/HCPCS: 20610; 99212; J0665; J1100 ==

== ENCOUNTER 2024-01-30 12:31 | Outpatient (AMB) | payer MEDICARE, OTHER, SELFPAY ==
[2024-01-30 12:44] VITALS: BP 120/70; PULSE 82; TEMP 36.3; O2SAT 97; BMI 32.3
--- NOTE | 2024-01-30 12:44 | AM.OFFWIN_ITS ---
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 lft knee pain Intake Note: pt is here today for fell lft knee started 1 week ago Patient Tobacco Use Status: Former Tobacco user Quit Date: 2000 Allergies No Known Allergies [No Known Allergies*] Allergy (Verified 01/30/24 13:35) Medication List - Last Reconciled 01/30/24 by Shine Stinson MD acetaminophen 1,000 mg PO TID apixaban (Eliquis) 5 mg PO BID cholecalciferol (vitamin D3) 25 mcg PO DAILY clonazepam 2 mg PO BID PRN dextroamphetamine-amphetamine 15 mg 1 tab PO DAILY gabapentin 300 mg PO BEDTIME hydroxyzine pamoate 25 mg PO BEDTIME lorazepam (Ativan) 1 mg PO BEDTIME PRN magnesium hydroxide (Milk of Magnesia) 30 mL PO DAILY PRN melatonin 9 mg PO BEDTIME metoprolol succinate ER 50 mg PO DAILY [Neoprene wrist sleeve As directed] pantoprazole 40 mg PO DAILY@0630 prazosin 2 mg PO BEDTIME prazosin 5 mg PO BEDTIME solifenacin 5 mg PO DAILY venlafaxine ER 75 mg PO DAILY walker Folding Front wheeled walker walker Rollator walker with seat and breaks Do you need a note to return to daycare/school/sports/work: No HPI 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 Patient is complaining of knee pain since last week. Patient had a fall and landed on her back last week. She has baseline arthritis in the knee and uses a cane prior to the fall. Subsequently, the pain symptoms have worsened. Worse on climbing or coming down stairs. No falls. [facility] Medical History (Updated 10/03/23 @ 07:43 by Higinio Hennessy MD) Arthritis of left knee Gait disturbance HTN (hypertension) Osteoarthritis IBS (irritable bowel syndrome) Major depression, recurrent, chronic Vitamin D deficiency Abnormal gait Lumbar spinal stenosis Pure hypercholesterolemia Severe major depression without psychotic features Hx of basal cell carcinoma Osteopenia Paroxysmal atrial fibrillation Surgical History History of esophagogastroduodenoscopy (EGD) Hx of colonoscopy Hx of breast biopsy Hx of hysterectomy Hx of appendectomy Family History Father No problems noted. Mother No problems noted. 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 Mild discomfirt on forward flexion. Assessment & Plan Assessment & Plan (1) Sprain of left knee: Code(s): S83.92XA - Sprain of unspecified site of left knee, initial encounter Plan: X ray images personally reviewed by me. Knee splint provided. OTC NSAIDS for inflammation control. If symptoms do not improve, to follow up here. Coding Level of Care Code Est Pt Level 4 (39755) Diagnoses Sprain of left knee S83.92XA
== END 2024-01-30 13:57 | disposition home or self-care (01) ==
PROVIDERS: Visit Provider Internal Medicine
DX: S83.92XA Sprain of unspecified site of left knee, initial encounter (principal)
CPT/HCPCS: 99204

== ENCOUNTER 2024-01-30 13:24 | Outpatient (REF) | payer MEDICARE, OTHER, SELFPAY ==
--- NOTE | ~2024-01-30 | XR_ITS ---
EXAMINATION: XR KNEE, LEFT CLINICAL INFORMATION: Left knee sprain COMPARISON: Bilateral standing knees 12/22/2021, left knee 07/19/2021 TECHNIQUE: Four views of the left knee. FINDINGS: Degenerative changes are noted in the left knee with marked narrowing of the medial compartment and patellofemoral compartment. Inferior patellar osteophytes are present as are some bilateral tibial plateau osteophytes. No chondrocalcinosis is seen. No acute fracture is detected. Compared with prior studies, there's been no significant interval change XR/XR knee LT 4V IMPRESSION: Degenerative changes in the left knee as described above.
== END 2024-01-30 13:25 | disposition home or self-care (01) ==
LOC: HO.HMGCX 13:24
PROVIDERS: Visit Provider Internal Medicine
DX: S83.92XA Sprain of unspecified site of left knee, initial encounter (principal)
CPT/HCPCS: 73564

== ENCOUNTER 2024-02-19 14:42 | Outpatient (AMB) | payer MEDICARE, OTHER, SELFPAY ==
--- NOTE | 2024-02-19 14:43 | A.OFFVIS_ITS ---
Vital Signs 02/19/24 14:45 Height 5 ft 6 in Weight 206 lb 6 oz BMI 33.3 Intake Visit Reasons: OV - LT knee pain Intake Note: Lucita is a 73 year old female who presents today for a follow up of her left knee OA. Last injection was done on 09/28/23. She continues to have episodes of falling and this has increased the pain in her left knee. She last fell about about a month again causing her knee to twist as she went back. She ambulates with an assistive cane or walker but feels unstable while walking. She had formal PT in the past for general balance. Patient did not receive referral for Neuro as previously discussed. She expresses her last injection gave her relief until she had her fall. She would like another injection today. Allergies No Known Allergies [No Known Allergies*] Allergy (Verified 02/19/24 14:50) HPI HPI OV - LT knee pain: Details: Lucita is a 73 year old female who presents today for a follow up of her left knee OA. Last injection was done on 09/28/23. She continues to have episodes of falling and this has increased the pain in her left knee. She last fell about about a month again causing her knee to twist as she went back. She ambulates with an assistive cane or walker but feels unstable while walking. She had formal PT in the past for general balance. Patient did not receive referral for Neuro as previously discussed. She expresses her last injection gave her relief until she had her fall. She would like another injection today. [facility] Medical History Arthritis of left knee Gait disturbance HTN (hypertension) Osteoarthritis IBS (irritable bowel syndrome) Major depression, recurrent, chronic Vitamin D deficiency Abnormal gait Lumbar spinal stenosis Pure hypercholesterolemia Severe major depression without psychotic features Hx of basal cell carcinoma Osteopenia Paroxysmal atrial fibrillation Surgical History History of esophagogastroduodenoscopy (EGD) Hx of colonoscopy Hx of breast biopsy Hx of hysterectomy Hx of appendectomy Family History Father No problems noted. Mother No problems noted. 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 week) Comment: aware of trip hazard Patient Tobacco Use Status: Former Tobacco user Tobacco use type: Cigarette Advance Directives Date on File: 11/11/21 service: No Current occupational status: retired Current occupation: rt handed Physical Exam Vital Signs: BMI result Body Mass Index 33.3 Const General: no acute distress, alert and awake Orientation/consciousness: patient oriented x3 HEENT Head: Yes normocephalic and Yes atraumatic Eyes EOM: EOMs intact bilaterally Resp Effort & Inspection: normal respiratory effort and able to speak in complete sentences Cardio Jugular venous distension: no JVD Skin General skin exam: turgor normal Rashes: no rashes Neuro General: patient oriented x3 Extrem Other: Left knee with medial and lateral comaprtment TTP Psych Appearance: grossly normal Affect: normal affect Attitude: cooperative Office Procedures Joint Injection/Drain Joint Injection/Drain Details: Injected 1 mL of Decadron and 3 mL 1% lidocaine and 3 mL of 0.25% Marcaine. Site was prepped using aseptic technique. Patient tolerated the procedure well. Primary Site: left knee Approach Used: anterolateral Coding - Large joint Procedure code (CPT) selection complete Assessment & Plan Assessment & Plan (1) Primary osteoarthritis, right shoulder: Code(s): M19.011 - Primary osteoarthritis, right shoulder Category: Medical Plan: Referred to pain for intra articular us guided injection (2) Gait disturbance: Code(s): R26.9 - Unspecified abnormalities of gait and mobility Category: Medical Plan: Referred to neurology (3) Arthritis of left knee: Code(s): M17.12 - Unilateral primary osteoarthritis, left knee Category: Medical Plan: Left knee OA. I injected left knee today. May follow up in 3 months if pain retu rns. Orders: Referrals Neurology Referral R26.9 - Unspecified abnormalities of gait and mobility Pain Management Referral M19.011 - Primary osteoarthritis, right shoulder Coding Level of Care Code Est Pt Level 4 (58762) Diagnoses Primary osteoarthritis, right shoulder M19.011 Gait disturbance R26.9 Arthritis of left knee M17.12 CPT Codes Coding - Large joint: 43385 - Large joint ([id number])
[2024-02-19 14:45] VITALS: BMI 33.3
== END 2024-02-19 15:12 | disposition home or self-care (01) ==
PROVIDERS: Visit Provider Orthopaedic Surgery
DX: M19.011 Primary osteoarthritis, right shoulder (principal); R26.9 Unspecified abnormalities of gait and mobility; M17.12 Unilateral primary osteoarthritis, left knee
CPT/HCPCS: 20610; 99214

== ENCOUNTER → 2024-02-19 14:42 | Outpatient (BNVA) | payer MEDICARE, OTHER, SELFPAY | PROVIDERS: Visit Provider Orthopaedic Surgery | DX: M19.011 Primary osteoarthritis, right shoulder (principal); M17.12 Unilateral primary osteoarthritis, left knee; R26.9 Unspecified abnormalities of gait and mobility | CPT/HCPCS: 20610; 99212; J0665; J1100 ==

== ENCOUNTER 2024-03-12 14:46 | Emergency (ER) | payer MEDICARE, OTHER, SELFPAY | END 2024-03-12 16:18 | disposition left against medical advice (07) | PROVIDERS: Emergency Provider Emergency Medicine | DX: R10.9 Unspecified abdominal pain (principal); Z53.21 Procedure and treatment not carried out due to patient leaving prior to being seen by health care provider ==

== ENCOUNTER 2024-03-22 17:30 | Emergency (ER) | payer MEDICARE, OTHER, SELFPAY ==
--- NOTE | ~2024-03-22 | CT_ITS ---
EXAMINATION: CT ABDOMEN AND PELVIS WITH CONTRAST CLINICAL INFORMATION: Right-sided abdominal pain. COMPARISON: CT abdomen/pelvis dated 09/01/2022. TECHNIQUE: Multidetector volumetric images were obtained from the superior aspect of the liver through the pubic symphysis following administration 85 mL of Omnipaque 350 intravenous contrast. Sagittal and coronal reformatted images were obtained on the technologist's workstation. Oral contrast: No This CT examination was performed using dose optimization techniques as appropriate, variously including the following: *Automated exposure control *Adjustment of mA and/or kV according to patient size (this includes techniques or standardized protocols for targeted exams where dose is matched to indication/reason for exam; i.e. extremities or head) *Use of iterative reconstruction technique DLP: 940 mGy-cm FINDINGS: LUNG BASES: The visualized lung bases are unremarkable. LIVER, GALLBLADDER, AND BILIARY TREE: The liver is normal in size, shape, and attenuation. No focal hepatic lesion or biliary ductal dilatation is present. The gallbladder is unremarkable with no evidence of radiopaque gallstones, gallbladder wall thickening, or obvious pericholecystic inflammatory changes. PANCREAS: Unremarkable. SPLEEN: Unremarkable. ADRENAL GLANDS: Unremarkable. KIDNEYS AND URETERS: The kidneys are normal in size, shape, and attenuation. No hydronephrosis, hydroureter, or calculi seen. Redemonstration of a simple right renal cyst. No follow-up imaging recommended. No perinephric stranding. BLADDER: Partially distended and unremarkable. GASTROINTESTINAL TRACT: There is nondistention of the stomach with a thickened wall, unchanged when compared to the prior examination and likely due to underdistention. If there is clinical concern, direct visualization could help further evaluate. No associated inflammatory change to suggest acute gastritis. No additional bowel wall thickening or inflammatory change. No small or large bowel obstruction. Status post cholecystectomy. PERITONEAL CAVITY: No intra-abdominal free air or free fluid. No intra-abdominal mass or organized fluid collection/abscess formation. ABDOMINAL WALL: No significant hernia is appreciated. LYMPH NODES: No significant lymphadenopathy. VASCULAR: Scattered atherosclerotic calcifications. No abdominal aortic dilatation or dissection. PELVIC VISCERA: Status post hysterectomy. OSSEOUS STRUCTURES: Unremarkable. CT/CT abdomen pelvis w IV con IMPRESSION: 1. Nondistention of the stomach with a thickened wall, unchanged when compared to the prior examination and likely due to underdistention. If there is clinical concern, direct visualization could help further evaluate. No associated inflammatory change to suggest acute gastritis. 2. No additional bowel wall thickening or inflammatory change. No small or large bowel obstruction. 3. No intra-abdominal mass, lymphadenopathy, or ascites. Fleischner guidelines were followed.
[2024-03-22 17:50] VITALS: BP 145/58; PULSE 66; O2SAT 96; BMI 30.9
--- NOTE | 2024-03-22 17:52 | ECG_ITS ---
Test Reason : ABDOMINAL PAIN Blood Pressure : / mmHG Vent. Rate : 059 BPM Atrial Rate : 059 BPM P-R Int : 168 ms QRS Dur : 088 ms QT Int : 420 ms P-R-T Axes : 053 -03 018 degrees QTc Int : 415 ms Sinus bradycardia Otherwise normal ECG When compared with ECG of 27-JAN-2023 17:15, Vent. rate has decreased BY 29 BPM Referred By: Milvia Yang Electronically Signed By:DEXTER TAYLOR MD
--- NOTE | 2024-03-22 18:06 | ED_ITS ---
HPI - Abdominal Pain General Chief Complaint: Abdominal Pain Stated Complaint: abd pain Time Seen by Provider: 03/22/24 17:44 Source: patient, EMS and old records reviewed Mode of arrival: EMS Limitations: no limitations History of Present Illness ED Provider: DINORA SANCHEZ narrative: 73 yo female with PMH of HTN, PAF on eliquis, arthritis here with c/o R sided abdominal pain x 10 days worse with movement and palpation mild nausea. no change in bowel or bladder habits. Acutely worse today with moving and touching area. Has hx of appendectomy, hysterectomy MD elicited complaint: abdominal pain Pertinent past history: none Onset (ago): day(s) (10) Pain Consistency: intermittent Location: RLQ Severity: moderate Quality: stabbing Radiation: none Migration to: no migration Exacerbating factors: movement Relieving factors: nothing Associated symptoms: nausea Related Data Home Medications ?Medication ?Instructions ?Recorded ?Confirmed clonazepam 2 mg tablet 2 mg PO BID PRN Anxiety 07/14/20 09/12/23 gabapentin 300 mg capsule 300 mg PO BEDTIME 07/14/20 09/12/23 metoprolol succinate 50 mg 50 mg PO DAILY 07/14/20 09/12/23 tablet,extended release 24 hr pantoprazole 40 mg tablet,delayed 40 mg PO DAILY@0630 07/14/20 09/12/23 release prazosin 2 mg capsule 2 mg PO BEDTIME 07/14/20 09/12/23 venlafaxine 75 mg capsule,extended 75 mg PO DAILY 07/14/20 09/12/23 release 24 hr solifenacin 5 mg tablet 5 mg PO DAILY 08/09/21 09/12/23 acetaminophen 500 mg tablet 1,000 mg PO TID 10/21/21 09/12/23 melatonin 3 mg tablet 9 mg PO BEDTIME 11/11/21 09/12/23 cholecalciferol (vitamin D3) 25 25 mcg PO DAILY 12/15/21 09/12/23 mcg (1,000 unit) capsule hydroxyzine pamoate 25 mg capsule 25 mg PO BEDTIME 09/12/23 09/12/23 prazosin 5 mg capsule 5 mg PO BEDTIME 09/12/23 09/12/23 dextroamphetamine-amphetamine 5 mg 1 tab PO DAILY 02/19/24 tablet dextroamphetamine-amphetamine ER 1 cap PO QAM 02/19/24 10 mg 24hr capsule,extend release Previous Rx's ?Medication ?Instructions ?Recorded Neoprene wrist sleeve #1 ea 07/08/21 walker #1 ea 11/25/21 walker #1 ea 06/02/22 apixaban 5 mg tablet (Eliquis) 5 mg PO BID #60 tabs 06/14/22 Allergies Allergy/AdvReac Type Severity Reaction Status Date / Time No Known Allergies Allergy Verified 03/22/24 17:52 [No Known Allergies*] Review of Systems Review of Systems Constitutional : No Weight loss, No Fever, No Chills ENT/Mouth : No sore throat, No Rhinorrhea Eyes: No Swelling, No Redness Cardiovascular : No Chest Pain, No SOB, NoEdema Respiratory : No Cough, No Sputum, No Wheezing Gastrointestinal : Positive Nausea, no Vomiting, no Diarrhea, positive abdominal Pain, No Hematochezia, No Melena Genitourinary : No Dysuria, No Urinary Frequency, No Hematuria, No Urgency Musculoskeletal : No joint pain, No Myalgias, No Joint Swelling Skin : No Skin Lesions, No rash Neuro : No Weakness, No Numbness, No Dizziness, No Headache Psych : No Anxiety/Panic, No Depression All other systems reviewed and are negative. [facility] Past Medical History Attestation statement: The following information was validated with the patient. Source: old records reviewed Medical History Arthritis of left knee Gait disturbance HTN (hypertension) Osteoarthritis IBS (irritable bowel syndrome) Major depression, recurrent, chronic Vitamin D deficiency Abnormal gait Lumbar spinal stenosis Pure hypercholesterolemia Severe major depression without psychotic features Hx of basal cell carcinoma Osteopenia Paroxysmal atrial fibrillation Surgical History History of esophagogastroduodenoscopy (EGD) Hx of colonoscopy Hx of breast biopsy Hx of hysterectomy Hx of appendectomy Family History Family History Father No problems noted. Mother No problems noted. 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) Comment: aware of trip hazard Patient Tobacco Use Status: Former Tobacco user Tobacco use type: Cigarette Smoked in Last 30 Days: No Use of substances other than those prescribed or required for medical reasons: No Advance Directives: Yes Advance Directives on File: Yes Advance Directives Date on File: 11/11/21 Do you have a plan to hurt others: No Plan service: No Current occupational status: retired Current occupation: rt handed Physical Exam ED Vital Signs: Vital Signs - 24 hr 03/22/24 18:11 03/22/24 19:11 Temperature 98.5 F 98.3 F Pulse Rate 66 58 Respiratory Rate 15 18 Blood Pressure 139/58 L 117/53 L Pulse Oximetry 98 97 Oxygen Delivery Method Room Air Room Air BMI result Body Mass Index 30.9 Appearance: Alert. Oriented X3. No acute distress. Eyes: Pupils equal, round and reactive to light. ENT: Pharynx normal. Neck: Normal inspection. Neck supple. CVS: Normal heart rate and rhythm. Pulses normal. Respiratory: No respiratory distress. Breath sounds normal. Abdomen: Soft and moderate RLQ no rebound Skin: Skin warm and dry. Normal skin color. Normal skin turgor. Extremities: No lower extremity edema. No calf ttp Neuro: Oriented X 3. No motor deficit. No sensory deficit. Medical Decision Making Medical Decision Making [facility] Narrative: 73 yo female with PMH of HTN, PAF on eliquis, arthritis here with c/o R sided abdominal pain for 10 days at this time will need basic, UA, CT scan to rule out diverticulitis, renal colic, colitis. No pain now at this time Differential Diagnosis Differential Diagnoses: The differential diagnosis associated with the presentation includes diverticulitis, renal colic, colitis. Admission/Observation Consideration of admission/observation: Escalation of care including admission/observation considered no acute findings on CT scan or labs UA negative at this time stable for DC Lab Data [facility] Lab Attestation statement: I reviewed the patient's lab results. 03/22/24 18:05 03/22/24 18:05 Labs: Lab Results 03/22/24 Range/Units 18:05 WBC 10.9 H (4.8-10.8) X10*3/uL RBC 4.53 (4.20-5.50) X10*6/uL Hgb 14.1 (12.0-16.0) g/dl Hct 42.3 (37.0-47.0) % MCV 93.4 (80.0-98.0) fL MCH 31.1 (27.0-33.0) pg MCHC 33.3 (31.0-35.0) g/dl RDW 13.1 (11.0-16.0) % Plt Count 272 (160-400) X10*3/uL MPV 8.9 L (9.4-12.3) fL Immature Gran % (Auto) 0.5 H (0.0-0.4) % Neut % (Auto) 50.3 (45-73) % Lymph % (Auto) 38.9 (20-40) % [place] % (Auto) 8.4 (2-11) % Eos % (Auto) 1.3 (0-4) % Baso % (Auto) 0.6 (0-2) % Lymph # (Auto) 4.2 (1.2-4.9) X10*3/uL [place] # (Auto) 0.9 (0.1-1.2) X10*3/uL Eos # (Auto) 0.1 (0.0-0.4) X10*3/uL Baso # (Auto) 0.1 (0.0-0.2) X10*3/uL Abs Immat Gran (auto) 0.05 H (0.00-0.03) X10*3/uL Absolute Neuts (auto) 5.5 (2.0-8.3) x10*3/uL Absolute Nucleated RBC 0.000 (0.0-0.012) X10*3/uL Nucleated RBC % (auto) 0.0 (0.0-0.2) /100WBC Sodium 139 (135-145) mmol/L Potassium 3.9 (3.3-5.1) mmol/L Chloride 105 (96-108) mmol/L Carbon Dioxide 24 (22-29) mmol/L Anion Gap 14 (12-20) BUN 16 (9-16) mg/dL Creatinine 0.73 (0.5-1.4) mg/dL Estim Creat Clear Calc 78.7 Estimated GFR > 60 Random Glucose 91 (60-115) mg/dL Calcium 9.7 (8.4-10.2) mg/dL Magnesium 2.3 (1.6-2.6) mg/dL Total Bilirubin 0.4 (0.0-1.0) mg/dL Direct Bilirubin 0.1 (0.0-0.5) mg/dL AST 16 (5-31) U/L ALT 11 (0-31) U/L Alkaline Phosphatase 85 (39-117) U/L Troponin I High Sens < 2.7 (<3.5-17.0) ng/L Total Protein 6.7 (6.5-8.0) g/dL Albumin 4.0 (3.5-5.0) g/dL Lipase 12 (8-78) U/L Urine Color Yellow Urine Appearance Clear Urine pH 6.5 (5.0-9.0) Ur Specific [place] 1.010 (1.005-1.025) Urine Protein Negative (Neg-Trace) mg/dL Urine Glucose (UA) Negative (Negative) mg/dL Urine Ketones Negative (Negative) mg/dL Urine Blood Negative (Negative) Urine Nitrite Negative (Negative) Ur Leukocyte Esterase Small (1+) H (Negative) Urine RBC 0-2 (0-2) /HPF Urine WBC 0-5 (0-5) /HPF Ur Squamous Epith Cells 0-2 (0-2) /HPF Urine Bacteria None Seen (None Seen) Hyaline Casts 0-2 (0-2) /LPF Independent Interpretation I performed an independent interpretation of an: EKG and CT Scan (no acute findings) Interpretation: Rate: 59 Rhythm: sinus bradycardia Artemus: left Normal P waves. Normal JERRY. Normal QRS complex. ST T wave : no TYRELL, inverted t wave III qTC: 415 prior studies: no acute ischemia The study has been interpreted contemporaneously by me. . Radiology Impression Discussion of test interpretation with radiology: I have reviewed the radiologist's reading. Independent Historian Clinical information obtained from an independent historian. History obtained from or confirmed by: EMS External Record Review External record reviewed: Inpatient record Medications Administered Discontinued Medications Generic Name Dose Route Start Last Admin Trade Name Freq PRN Reason Stop Dose Admin Iohexol 85 ml 03/22/24 19:27 03/22/24 19:28 Iohexol 350 Mg/Ml 100 Ml Infus..Btl IV 03/22/24 19:28 85 ml ONCE ONE Administration Discharge Plan Discharge Clinical Impression: Abdominal pain Qualifiers: Abdominal location: right lower quadrant Qualified Code(s): R10.31 - Right lower quadrant pain Patient Disposition: Home, Self-Care Instructions: Abdominal Pain (ED) Additional Instructions: labs and urine reassuring EKG and heart blood test reassuring CT scan of abdomen handed to you reassuring please return for any worsening symptoms or concerns as discussed stomach small on CT scan no change from 2021 would ask PCP to refer to GI for endoscopy Prescriptions: No Action (DME) walker Misc See Rx Instructions .MEDSUPPLY Qty: 1 0RF Rx Instructions: Folding Front wheeled walker (DME) walker Misc See Rx Instructions .MEDSUPPLY Qty: 1 0RF Rx Instructions: Rollator walker with seat and breaks Eliquis 5 mg tablet 5 mg PO BID Qty: 60 5RF melatonin 3 mg Tablet 9 mg PO BEDTIME acetaminophen 500 mg Tablet 1,000 mg PO TID prazosin 2 mg capsule 2 mg PO BEDTIME clonazepam 2 mg tablet 2 mg PO BID PRN (Reason: Anxiety) venlafaxine 75 mg capsule,extended release 24hr 75 mg PO DAILY gabapentin 300 mg capsule 300 mg PO BEDTIME pantoprazole 40 mg tablet,delayed release (DR/EC) 40 mg PO DAILY@0630 metoprolol succinate 50 mg tablet extended release 24 hr 50 mg PO DAILY solifenacin 5 mg tablet 5 mg PO DAILY (DME) Neoprene wrist sleeve See Rx Instructions .Route .MEDSUPPLY Qty: 1 0RF Rx Instructions: As directed cholecalciferol (vitamin D3) 25 mcg (1,000 unit) capsule 25 mcg PO DAILY hydroxyzine pamoate 25 mg capsule 25 mg PO BEDTIME prazosin 5 mg capsule 5 mg PO BEDTIME dextroamphetamine-amphetamine 10 mg capsule,extended release 24hr 1 cap PO QAM dextroamphetamine-amphetamine 5 mg tablet 1 tab PO DAILY Print Language: Nigerian
[2024-03-22 18:11] VITALS: BP 139/58; PULSE 66; RESP 15; TEMP 36.9; O2SAT 98
[2024-03-22 18:12] LABS: MANUAL DIFF FLAG NO
[2024-03-22 18:14] LABS: Basophils Absolute Auto 0.1 X10*3/uL (0.0-0.2); Basophils Percent Auto 0.6 % (0-2); Eosinophils Absolute Auto 0.1 X10*3/uL (0.0-0.4); Eosinophils Percent Auto 1.3 % (0-4); Hematocrit 42.3 % (37.0-47.0); Hemoglobin 14.1 g/dl (12.0-16.0); Imm Gran Abs Auto 0.05 X10*3/uL (0.00-0.03); Imm Gran Pct Auto 0.5 % (0.0-0.4); Lymphocytes Absolute Auto 4.2 X10*3/uL (1.2-4.9); Lymphocytes Percent Auto 38.9 % (20-40); Mean Corpuscular HGB Conc 33.3 g/dl (31.0-35.0); Mean Corpuscular Hemoglobin 31.1 pg (27.0-33.0); Mean Corpuscular Volume 93.4 fL (80.0-98.0); Mean Platelet Volume 8.9 fL (9.4-12.3); Monocytes Absolute Auto 0.9 X10*3/uL (0.1-1.2); Monocytes Percent Auto 8.4 % (2-11); Neutrophils Absolute Auto 5.5 x10*3/uL (2.0-8.3); Neutrophils Percent Auto 50.3 % (45-73); Platelet Count 272 X10*3/uL (160-400); Red Blood Count 4.53 X10*6/uL (4.20-5.50); Red Cell Distribution Width 13.1 % (11.0-16.0); White Blood Count 10.9 X10*3/uL (4.8-10.8)
[2024-03-22 18:19] LABS: Appearance Urine Clear; Color Urine Yellow; Glucose Urine UA Negative (Negative); Leukocyte Esterase Urine Small (1+) (Negative); Nitrite Urine Negative (Negative); PH 6.5 (5.0-9.0); UMIC TRIGGER UACC YES; Urine Blood Negative (Negative); Urine Ketones Negative (Negative); Urine Protein Negative (Neg-Trace)
[2024-03-22 18:53] LABS: Bacteria Urine None Seen (None Seen); Hyaline Casts Urine 0-2 /LPF (0-2); RBC Urine 0-2 /HPF (0-2); Squamous Epithelial Cell Urine 0-2 /HPF (0-2); UACC Culture Trigger YES; WBC Urine 0-5 /HPF (0-5)
[2024-03-22 19:11] VITALS: BP 117/53; PULSE 58; RESP 18; TEMP 36.8; O2SAT 97
[2024-03-22 19:12] LABS: Alanine Aminotransferase 11 U/L (0-31); Alkaline Phosphatase 85 U/L (39-117); Anion Gap 14 (12-20); Aspartate Amino Transferase 16 U/L (5-31); Bilirubin Direct 0.1 mg/dL (0.0-0.5); Bilirubin Total 0.4 mg/dL (0.0-1.0); Blood Urea Nitrogen 16 mg/dL (9-16); Calcium 9.7 mg/dL (8.4-10.2); Carbon Dioxide 24 mmol/L (22-29); Chloride 105 mmol/L (96-108); Creatinine Clr Calc Pharmacy 78.7; Estimated Glomerular Filt Rate > 60; Glucose Random 91 mg/dL (60-115); Lipase 12 U/L (8-78); Magnesium 2.3 mg/dL (1.6-2.6); Potassium 3.9 mmol/L (3.3-5.1); Sodium 139 mmol/L (135-145); Total Protein 6.7 g/dL (6.5-8.0)
[2024-03-22] MEDS: iohexoL 350 MG/ML 100 ML INFUS..BTL 85 ML IV (19:28)
[2024-03-22 19:42] LABS: Troponin-I High Sensitivity < 2.7 ng/L (<3.5-17.0)
[2024-03-22 21:16] VITALS: BP 127/88; PULSE 59; RESP 18; TEMP 36.5; O2SAT 96
[2024-03-22 21:24] VITALS: BP 127/88; PULSE 59; RESP 18; TEMP 36.5; O2SAT 96
== END 2024-03-22 21:24 | disposition home or self-care (01) ==
PROVIDERS: Emergency Provider Emergency Medicine; PCP Nurse Practitioner Family
DX: R10.31 Right lower quadrant pain (principal); I10 Essential (primary) hypertension; I48.0 Paroxysmal atrial fibrillation; Z79.01 Long term (current) use of anticoagulants
CPT/HCPCS: 36415; 74177; 80048; 80076; 81001; 83690; 83735; 84484; 85025; 87086; 93005; 99284; 99285; Q9967

== ENCOUNTER → 2024-03-22 17:52 | Outpatient (BNV) | payer MEDICARE, OTHER, SELFPAY | PROVIDERS: Emergency Provider Emergency Medicine; Visit Provider Internal Medicine Cardiovascular Disease | DX: R00.1 Bradycardia, unspecified (principal) | CPT/HCPCS: 93010 ==

== ENCOUNTER 2024-04-02 07:16 | Outpatient (REF) | payer MEDICARE, OTHER, SELFPAY ==
--- NOTE | ~2024-04-02 | FL_ITS ---
EXAMINATION: XR FLUOROSCOPY WITH IMAGES CLINICAL INFORMATION: Primary osteoarthritis right shoulder. COMPARISON: None available. TECHNIQUE: Fluoroscopy provided to: Dr. Mix Fluoroscopy time: 0.2 minutes DAP: 0.0117 mGycm2 Images: 1 FINDINGS: Solitary PA image right shoulder shows needle within the superior glenohumeral joint with subsequent contrast injection. FL/FL guidance in treatment room IMPRESSION: Fluoroscopic guidance. Please refer to the full operative report for details. Electronically signed by: Bienvenido Gill MD 05/30/2024 08:58 AM EDT
== END 2024-04-02 07:17 | disposition home or self-care (01) ==
LOC: CF 07:16
PROVIDERS: Visit Provider Anesthesiology
DX: M19.011 Primary osteoarthritis, right shoulder (principal)
CPT/HCPCS: 20610; 77002; J2795; J3301; Q9967

== ENCOUNTER 2024-04-02 13:38 | Outpatient (AMB) | payer MEDICARE, OTHER, SELFPAY ==
[2024-04-02 13:45] VITALS: BP 131/66; PULSE 92; RESP 19; O2SAT 95
--- NOTE | 2024-04-02 13:45 | A.OFFVIS_ITS ---
Vital Signs 04/02/24 13:45 04/02/24 14:19 BP 131/66 149/68 H Blood Pressure Location Rt brachial Rt brachial Position Sitting Sitting Respiration 19 17 Pulse 92 80 Pulse Source Pulse Oximeter Pulse Oximeter Pulse Oximetry (%) 95 96 Oxygen Delivery Method Room Air Room Air Comment Pre-op Post-op Intake Visit Reasons: Intra-articular right shoulder injection Allergies No Known Allergies [No Known Allergies*] Allergy (Verified 05/12/24 10:47) PFSH Medical History Arthritis of left knee Gait disturbance HTN (hypertension) Osteoarthritis IBS (irritable bowel syndrome) Major depression, recurrent, chronic Vitamin D deficiency Abnormal gait Lumbar spinal stenosis Pure hypercholesterolemia Severe major depression without psychotic features Hx of basal cell carcinoma Osteopenia Paroxysmal atrial fibrillation Surgical History History of esophagogastroduodenoscopy (EGD) Hx of colonoscopy Hx of breast biopsy Hx of hysterectomy Hx of appendectomy Family History Father No problems noted. Mother No problems noted. Social History Are you a primary director of health care marketing to a significant other at home: No Do you presently have visiting nurse or other home services: Yes (RADIOLOGY RECEPTIONIST 4 hours per week) Comment: aware of trip hazard Patient Tobacco Use Status: Former Tobacco user Tobacco use type: Cigarette Advance Directives: Yes Advance Directives on File: Yes Advance Directives Date on File: 11/11/21 Do you have a plan to hurt others: No Plan service: No Current occupational status: retired Current occupation: rt handed Physical Exam Vital Signs: Last Vital Signs Pulse 80 04/02/24 14:19 Resp 17 04/02/24 14:19 BP 149/68 H 04/02/24 14:19 Pulse Ox 96 04/02/24 14:19 Oxygen Delivery Method Room Air 04/02/24 14:19 Assessment & Plan Assessment & Plan (1) Primary osteoarthritis, right shoulder: Code(s): M19.011 - Primary osteoarthritis, right shoulder Category: Medical (2) Right shoulder pain: Code(s): M25.511 - Pain in right shoulder Category: Medical Plan Shoulder steroid injection on the right. Informed consent was explained thoroughly to the patient.? All questions about benefits and risks for the procedure were answered. Patient came to the operating room, was positioned prone on the operating table with the pillow under his chest..? Time out was performed and the patient was participating in the time out. C-arm was brought over the operating field and sequentially pictures of bilateral shoulder joints were demonstrated on the screen. the silhouette of the? right shoulder spaces was chosen as a target for the injections. 22G 3.5 inch needle was driven toward the joint under fluoroscopy view in tunnel vision fashion when rubbery resistance was felt and after that the resistance was lost under the needle the needle was stopped and contats was injected. The position of the needle was verified by arthrography.after that 5 mls of the bupivacain 0.5% mixed with kenalog 40 mg was injected into each joint. ?after the injecton the needle was removed and sterile band-aid was applied. The patient tolerated procedure well, was discharged to PACU in stable condition. The patient went home without immediate complications Orders: Orders FL guidance in treatment room 04/02/24 M19.011 - Primary osteoarthritis, right shoulder Coding Level of Care Code Procedure Only Diagnoses Primary osteoarthritis, right shoulder M19.011 Right shoulder pain M25.511
[2024-04-02 14:19] VITALS: BP 149/68; PULSE 80; RESP 17; O2SAT 96
== END 2024-04-02 14:16 | disposition home or self-care (01) ==
LOC: HO.PMCPRC 13:38
PROVIDERS: PCP Nurse Practitioner Family; Visit Provider Anesthesiology
DX: M25.511 Pain in right shoulder (principal); M19.011 Primary osteoarthritis, right shoulder
CPT/HCPCS: 20610; 77002

== ENCOUNTER 2024-04-24 09:35 | Outpatient (AMB) | payer MEDICARE, OTHER, SELFPAY ==
--- NOTE | 2024-04-24 09:45 | MHC.OFFVIS ---
Vital Signs 04/24/24 09:46 Height 5 ft 7 in Weight 198 lb 6.656 oz BMI 31.1 BP 122/68 Blood Pressure Location Lt brachial Position Sitting Pulse 82 Pulse Source Pulse Oximeter Intake Visit Reasons: 7 mth f/up Allergies No Known Allergies [No Known Allergies*] Allergy (Verified 03/22/24 17:52) Medication List - Last Reconciled 04/24/24 by Brandt Correia MD acetaminophen 1,000 mg PO TID apixaban (Eliquis) 5 mg PO BID cholecalciferol (vitamin D3) 25 mcg PO DAILY clonazepam 2 mg PO BID PRN dextroamphetamine-amphetamine 10 mg ER 1 cap PO QAM dextroamphetamine-amphetamine 5 mg 1 tab PO DAILY gabapentin 300 mg PO BEDTIME hydroxyzine pamoate 25 mg PO BEDTIME melatonin 9 mg PO BEDTIME metoprolol succinate ER 50 mg PO DAILY [Neoprene wrist sleeve As directed] pantoprazole 40 mg PO DAILY@0630 prazosin 5 mg PO BEDTIME solifenacin 5 mg PO DAILY venlafaxine ER 75 mg PO DAILY walker Folding Front wheeled walker walker Rollator walker with seat and breaks HPI Comments Details: Lucita comes for follow-up. Continues to have emotional issues. Yesterday she says she was at a place where she suddenly heard a loud noise and then she went into a panic attack. Otherwise she has been doing well. She has not had any prolonged irregular heartbeat or palpitations. Occasional fluttering in his chest. Denies any lightheadedness, syncope. Blood pressures been well controlled. Denies any heart failure symptoms. No exertional chest pain. [facility] Medical History Arthritis of left knee Gait disturbance HTN (hypertension) Osteoarthritis IBS (irritable bowel syndrome) Major depression, recurrent, chronic Vitamin D deficiency Abnormal gait Lumbar spinal stenosis Pure hypercholesterolemia Severe major depression without psychotic features Hx of basal cell carcinoma Osteopenia Paroxysmal atrial fibrillation Surgical History History of esophagogastroduodenoscopy (EGD) Hx of colonoscopy Hx of breast biopsy Hx of hysterectomy Hx of appendectomy Family History Father No problems noted. Mother No problems noted. Social History Are you a primary mall plant caretaker to a significant other at home: No Do you presently have visiting nurse or other home services: Yes (RN DOCUMENT IMPROVEMENT 4 hours per week) Comment: aware of trip hazard Patient Tobacco Use Status: Former Tobacco user Tobacco use type: Cigarette Advance Directives Date on File: 11/11/21 service: No Current occupational status: retired Current occupation: rt handed Review of Systems Const Denies weakness ENT Denies dizziness Card Denies chest pain, Denies chest pain with activity, Denies syncope, Denies rapid heart rate, Denies pedal edema, Denies edema, Denies leg edema, Denies lightheadedness, Denies palpitations, Denies dyspnea, Denies dyspnea on exertion and Denies orthopnea Resp Denies cough, Denies dyspnea and Denies dyspnea on exertion GI Denies hematochezia and Denies change in stool character Musc Denies abnormal gait, Denies muscle cramps, Denies muscle weakness, Denies numbness, Denies radiating pain into limb and Denies tingling Neuro Denies abnormal gait, Denies dizziness, Denies syncope, Denies numbness, Denies tingling and Denies weakness Endo Denies palpitations Physical Exam Vital Signs: Last Vital Signs Pulse 82 04/24/24 09:46 BP 122/68 04/24/24 09:46 BMI result Body Mass Index 31.1 Const General: cooperative, healthy appearing, comfortable and no acute distress Orientation/consciousness: patient oriented x3 Neck Neck: Yes normal visual inspection Resp Effort & Inspection: normal respiratory effort Auscultation: clear to auscultation bilaterally, no crackles, no rales, no rhonchi and no wheezes Cardio Jugular venous distension: no JVD Rate: regular rate Rhythm: regular rhythm Heart sounds: S1 normal heart sound present, S2 normal heart sound present, no murmurs and no rubs Neuro General: patient oriented x3 Extrem General: Yes normal to inspection, No no pedal edema and No calf tenderness Psych Appearance: grossly normal Mental Status: mental status grossly normal Speech and movement: Normal speech and movement present Assessment & Plan Assessment & Plan (1) Paroxysmal atrial fibrillation: Code(s): I48.0 - Paroxysmal atrial fibrillation Category: Medical Plan: Paroxysmal atrial fibrillation without any obvious clinical recurrence. She has occasional fluttering in chest which most likely related to PACs. Continue metoprolol therapy. Avoidance of stimulants was discussed. Stress mitigation strategies were discussed. CHADSVASc score of 3. Continue full oral anticoagulation with Eliquis. Importance of oral anticoagulation was discussed semi annual renal function test should be pursued. (2) HTN (hypertension): Code(s): I10 - Essential (primary) hypertension Category: Medical Plan: Hypertension, currently well optimized. She is on metoprolol and process seen. Continue the same. Importance of good blood pressure control was discussed. Encouraged to increase activity level and participate in weight loss program. Advised to monitor blood pressure at home maintain a log. Goal blood pressure less than 130/84. Will follow up in the clinic in 1 year after an echocardiogram. Thank you for allowing me to partake in her care Coding Level of Care Code Est Pt Level 4 (39232) Diagnoses Paroxysmal atrial fibrillation I48.0 HTN (hypertension) I10
[2024-04-24 09:46] VITALS: BP 122/68; PULSE 82; BMI 31.1
== END 2024-04-24 10:22 | disposition home or self-care (01) ==
PROVIDERS: PCP Nurse Practitioner Family; Visit Provider Internal Medicine Cardiovascular Disease
DX: I48.0 Paroxysmal atrial fibrillation (principal); I10 Essential (primary) hypertension
CPT/HCPCS: 99214

== ENCOUNTER → 2024-04-24 09:35 | Outpatient (BNVA) | payer MEDICARE, OTHER, SELFPAY | PROVIDERS: PCP Nurse Practitioner Family; Visit Provider Internal Medicine Cardiovascular Disease | DX: I48.0 Paroxysmal atrial fibrillation (principal); I10 Essential (primary) hypertension | CPT/HCPCS: 99212 ==

== ENCOUNTER 2024-05-12 10:44 | Emergency (ER) | payer MEDICARE, OTHER, SELFPAY ==
[2024-05-12 10:46] VITALS: BP 128/78; PULSE 78; RESP 18; TEMP 36.6; O2SAT 98; BMI 31.8
--- NOTE | 2024-05-12 12:02 | PC.NURSE ---
Pharmacy called at 1200 for medication order on NOV. Medication was not available in [facility] Pyx[facility] or main Pyxis.
[2024-05-12] MEDS: Dextroamphetamine/Amphetamine XR 10 MG CAP.ER.24H PO (12:23)
--- NOTE | 2024-05-12 12:25 | ED.GENADULT ---
HPI - General Adult General Chief complaint: General Medical Stated complaint: Medication refill Time Seen by Provider: 05/12/24 11:24 Source: patient, RN notes reviewed and old records reviewed History of Present Illness ED Provider: Yasmin Sadler PA-C HPI narrative: 73-year-old female with a past medical history HTN, osteoarthritis, ABS, HLD, proximal AFib, presenting to the ED requesting Adderall refill. Admits to taking 10 mg of ER daily for the past 5-7 years however ran out 8 days ago. States she [facility], states she had PCP [id number] appointment on Monday so she could obtain refills however only her Clonazepam refill was sent. Denies misusing or overusing her Adderall. States she is starting to feel agitated/anxious and like she is in Adderall withdrawal. Related Data Home Medications ?Medication ?Instructions ?Recorded ?Confirmed clonazepam 2 mg tablet 2 mg PO BID PRN Anxiety 07/14/20 04/24/24 gabapentin 300 mg capsule 300 mg PO BEDTIME 07/14/20 04/24/24 metoprolol succinate 50 mg 50 mg PO DAILY 07/14/20 04/24/24 tablet,extended release 24 hr pantoprazole 40 mg tablet,delayed 40 mg PO DAILY@0630 07/14/20 04/24/24 release venlafaxine 75 mg capsule,extended 75 mg PO DAILY 07/14/20 04/24/24 release 24 hr solifenacin 5 mg tablet 5 mg PO DAILY 08/09/21 04/24/24 acetaminophen 500 mg tablet 1,000 mg PO TID 10/21/21 04/24/24 melatonin 3 mg tablet 9 mg PO BEDTIME 11/11/21 04/24/24 cholecalciferol (vitamin D3) 25 25 mcg PO DAILY 12/15/21 04/24/24 mcg (1,000 unit) capsule hydroxyzine pamoate 25 mg capsule 25 mg PO BEDTIME 09/12/23 04/24/24 prazosin 5 mg capsule 5 mg PO BEDTIME 09/12/23 04/24/24 dextroamphetamine-amphetamine 5 mg 1 tab PO DAILY 02/19/24 04/24/24 tablet dextroamphetamine-amphetamine ER 1 cap PO QAM 02/19/24 04/24/24 10 mg 24hr capsule,extend release Previous Rx's ?Medication ?Instructions ?Recorded Neoprene wrist sleeve #1 ea 07/08/21 walker #1 ea 11/25/21 walker #1 ea 06/02/22 apixaban 5 mg tablet (Eliquis) 5 mg PO BID #60 tabs 06/14/22 Allergies Allergy/AdvReac Type Severity Reaction Status Date / Time No Known Allergies Allergy Verified 05/12/24 10:47 [No Known Allergies*] Review of Systems Review of Systems: Yes all other systems are reviewed and are negative Constitutional: Constitutional: Reports as per [facility] Past Medical History Attestation statement: The following information was validated with the patient. Source: old records reviewed Medical History Arthritis of left knee Gait disturbance HTN (hypertension) Osteoarthritis IBS (irritable bowel syndrome) Major depression, recurrent, chronic Vitamin D deficiency Abnormal gait Lumbar spinal stenosis Pure hypercholesterolemia Severe major depression without psychotic features Hx of basal cell carcinoma Osteopenia Paroxysmal atrial fibrillation Surgical History History of esophagogastroduodenoscopy (EGD) Hx of colonoscopy Hx of breast biopsy Hx of hysterectomy Hx of appendectomy Family History Family History Father No problems noted. Mother No problems noted. Social History Social History Are you a primary care information associate to a significant other at home: No Do you presently have visiting nurse or other home services: Yes (LOOPING INSPECTOR 4 hours per week) Comment: aware of trip hazard Patient Tobacco Use Status: Former Tobacco user Tobacco use type: Cigarette Advance Directives: Yes Advance Directives on File: Yes Advance Directives Date on File: 11/11/21 Do you have a plan to hurt others: No Plan service: No Current occupational status: retired Current occupation: rt handed Physical Exam ED Vital Signs: Vital Signs - 24 hr 05/12/24 10:46 05/12/24 12:38 Temperature 98 F 98 F Pulse Rate 78 78 Respiratory Rate 18 18 Blood Pressure 128/78 128/78 Pulse Oximetry 98 98 Oxygen Delivery Method Room Air Room Air BMI result Body Mass Index 31.8 Const General: cooperative, healthy appearing and no acute distress Orientation/consciousness: patient oriented x3 Limitations: no limitations HENMT Head: Yes normal to inspection and Yes atraumatic Ears: hearing grossly normal bilaterally General nose exam: Normal external nose present Face and sinus: Yes normal facial exam Eyes General: appearance normal, both eyes and all related structures EOM: EOMs intact bilaterally Neck Neck: Yes normal visual inspection and Yes no meningeal signs Resp Effort & Inspection: normal respiratory effort and no respiratory distress Cardio Rate: regular rate Skin Rashes: no rashes Wounds: no wounds Neuro General: patient oriented x3, tone normal and no meningeal signs Cranial nerves: Yes CN's II-XII intact bilaterally Gait exam (Neuro): Normal gait present Extrem General: Yes normal to inspection Medications Administered Discontinued Medications Generic Name Dose Route Start Last Admin Trade Name Freq PRN Reason Stop Dose Admin Amphetamine/Dextroamphetamine 10 mg 05/12/24 11:39 05/12/24 12:23 Dextroamphetamine/Amphetamine Xr 10 Mg Cap.Er.24h PO 05/12/24 11:40 10 mg ONCE ONE Administration Medical Decision Making Medical Decision Making MDM Narrative: 73-year-old female with a past medical history HTN, osteoarthritis, ABS, HLD, proximal AFib, presenting to the ED requesting Adderall refill. On exam vital signs stable, NAD. Per [facility] review patient filled 30 day supply of Adderall 10 mg extended release and 5 mg immediate release on 04/09/2024. Last Clonazepam refill on 04/08/2024 with 30 day supply. Based on this patient should have only been out of her Adderall x3 days. Discussed with patient at length will give 1 time dose of Adderall in the ED however will not be sending a prescription, she needs to contact her PCP tomorrow Please refer to course for remaining clinical decision making, interpretation of labs/imaging results, and discussions with consultants and/or family members. Results discussed with patient including worrisome signs and symptoms and strict return precautions, and when to return to the emergency department. They verbalized understanding and feel safe for discharge at this time. Differential Diagnosis Differential Diagnoses: The differential diagnosis associated with the presentation includes As above External Record Review External record reviewed: Inpatient record, Office record, Outpatient record, Prior outpatient labs, Prior outpatient radiology, Primary care record and Outside ED record Tests considered The following testing was considered but not selected: As above Discharge Plan Discharge Clinical Impression: Encounter for medication refill Patient Disposition: Home, Self-Care Instructions: Medicine Refill (ED) Additional Instructions: You are given a 1 time dose of your home dose of Adderall in the emergency department Please contact your primary care doctor tomorrow to obtain your refill Prescriptions: No Action (DME) walker Misc See Rx Instructions .MEDSUPPLY Qty: 1 0RF Rx Instructions: Folding Front wheeled walker (DME) walker Misc See Rx Instructions .MEDSUPPLY Qty: 1 0RF Rx Instructions: Rollator walker with seat and breaks Eliquis 5 mg tablet 5 mg PO BID Qty: 60 5RF melatonin 3 mg Tablet 9 mg PO BEDTIME acetaminophen 500 mg Tablet 1,000 mg PO TID clonazepam 2 mg tablet 2 mg PO BID PRN (Reason: Anxiety) venlafaxine 75 mg capsule,extended release 24hr 75 mg PO DAILY gabapentin 300 mg capsule 300 mg PO BEDTIME pantoprazole 40 mg tablet,delayed release (DR/EC) 40 mg PO DAILY@0630 metoprolol succinate 50 mg tablet extended release 24 hr 50 mg PO DAILY solifenacin 5 mg tablet 5 mg PO DAILY (DME) Neoprene wrist sleeve See Rx Instructions .Route .MEDSUPPLY Qty: 1 0RF Rx Instructions: As directed cholecalciferol (vitamin D3) 25 mcg (1,000 unit) capsule 25 mcg PO DAILY hydroxyzine pamoate 25 mg capsule 25 mg PO BEDTIME prazosin 5 mg capsule 5 mg PO BEDTIME dextroamphetamine-amphetamine 10 mg capsule,extended release 24hr 1 cap PO QAM dextroamphetamine-amphetamine 5 mg tablet 1 tab PO DAILY Referrals: Physician,Nonstaff [Primary Care Provider] - ED Physician,Generic [Physician] - Interventions: ED Discharge Assessment Last Done: 05/12/24 12:38 Discharge Date/Time: 05/12/24 12:38 Print Language: Cook Islander
[2024-05-12 12:38] VITALS: BP 128/78; PULSE 78; RESP 18; TEMP 36.6; O2SAT 98
== END 2024-05-12 12:38 | disposition home or self-care (01) ==
PROVIDERS: Emergency Provider Emergency Medicine Emergency Medical Services
DX: Z76.0 Encounter for issue of repeat prescription (principal); Z79.899 Other long term (current) drug therapy
CPT/HCPCS: 99282

== ENCOUNTER 2024-05-20 13:51 | Outpatient (AMB) | payer MEDICARE, OTHER, SELFPAY ==
--- NOTE | 2024-05-20 14:06 | A.OFFVIS_ITS ---
Vital Signs 05/20/24 14:35 Height 5 ft 6 in Weight 198 lb 2 oz BMI 32.0 BP 128/70 Blood Pressure Location Lt brachial Position Sitting Respiration 16 Pulse 81 Pulse Source Pulse Oximeter Pulse Oximetry (%) 95 Oxygen Delivery Method Room Air Intake Visit Reasons: Intra-articular right shoulder injection Intake Note: Patient comes in for initial visit and post- op appointment. Allergies No Known Allergies [No Known Allergies*] Allergy (Verified 05/20/24 14:36) HPI Comments Details: Lucita is very pleasant 73 years old female who presented today in my office after the therapeutic right intra-articular shoulder injection which was perform ed on 04/02/2024. She reports today that her pain in his shoulder started 1 year ago she relates her pain in his shoulder to arthritis. She reported that on x- ray she was told she has ?[id number] ?arthritis. She reports her pain today after procedure performed 45 days ago is 09/13. She reports that pain with movement increases. She reports about 50% pain improvement overall for 45 days after the procedure. She is able to sleep normally she can not do activities of daily living she can not take care of herself she can not function normally she is retired individual. Her last day of work was 10 years ago. He is self mobile. Weather changes aggravate her pain. CBD oil and Tylenol Arthritis help her pain. In terms of tissue damage he had her pain described as throbbing, shooting, stabbing, sharp, pulling, tiring, spreading, radiating, tearing sensation. She had extensive physical therapy for her knee problems however she never had any physical therapy for her shoulder. She had intra-articular shoulder injection with ga. Her past medical history significant for rate control atrial fibrillation she is on Eliquis. She also has history of arthritis. Past surgical history significant for appendicitis. She denies smoking cigarettes she does not drink alcohol, she drinks 1 cup of coffee a day. And she admits cannabis as recreational drugs. [facility] Medical History Arthritis of left knee Gait disturbance HTN (hypertension) Osteoarthritis IBS (irritable bowel syndrome) Major depression, recurrent, chronic Vitamin D deficiency Abnormal gait Lumbar spinal stenosis Pure hypercholesterolemia Severe major depression without psychotic features Hx of basal cell carcinoma Osteopenia Paroxysmal atrial fibrillation Surgical History History of esophagogastroduodenoscopy (EGD) Hx of colonoscopy Hx of breast biopsy Hx of hysterectomy Hx of appendectomy Family History Father No problems noted. Mother No problems noted. Social History Are you a primary child care attendant to a significant other at home: No Do you presently have visiting nurse or other home services: Yes (OFFICE TECHNICIAN 4 hours per week) Comment: aware of trip hazard Patient Tobacco Use Status: Former Tobacco user Tobacco use type: Cigarette Advance Directives Date on File: 11/11/21 service: No Current occupational status: retired Current occupation: rt handed Review of Systems Const Reports no additional complaints ENT Reports Normal hearing present Card Reports as per HPI Resp Reports no additional complaints GI Reports no additional complaints Reports no additional complaints Musc Reports as per HPI Neuro Reports no additional complaints, Reports Normal hearing present, Denies Abnormal speech present, Denies confusion and Denies Sensory deficit (Neuro) Psych Reports no additional complaints and Denies confusion Physical Exam Vital Signs: Last Vital Signs Pulse 81 05/20/24 14:35 Resp 16 05/20/24 14:35 BP 128/70 05/20/24 14:35 Pulse Ox 95 05/20/24 14:35 Oxygen Delivery Method Room Air 05/20/24 14:35 BMI result Body Mass Index 32.0 Const General: no acute distress; No confusion Orientation/consciousness: patient oriented x3 and No confusion Eyes General: appearance normal, both eyes and all related structures Pupils: Equal, round and reactive pupils present EOM: EOMs intact bilaterally Neck Neck: Yes full ROM Chest Chest palpation & inspection: normal inspection of the chest Resp Effort & Inspection: normal respiratory effort, able to speak in complete sentences, normal respiratory pattern, no audible wheezes and no cough Cardio Jugular venous distension: no JVD GI Inspection: Yes normal to inspection Neuro General: patient oriented x3, gait normal and No confusion Cranial nerves: Yes CN's II-XII intact bilaterally, Yes Equal, round and reactive pupils present, Yes Normal hearing present and Yes Ability to bilaterally elevate shoulders present Speech: No Abnormal speech present Gait exam (Neuro): Normal gait present Motor exam (neuro): 5/5 motor strength present throughout Sensory Exam: No Sensory deficit (Neuro) Extrem Other: Limited range of motion of the right glenohumeral joint. Crepitus is sensed on palpation with movement of the joint. The temperature of the joint seem to be appropriate and there is no local temperature observed. General: No pedal edema Psych Speech and movement: Normal speech and movement present Affect: normal affect Attitude: cooperative Thought process: Normal thought process present Thought content: Normal thought content present Insight: Good insight present (Psych) Judgement: Good judgement present (Psych) Assessment & Plan Assessment & Plan (1) Right shoulder pain: Code(s): M25.511 - Pain in right shoulder Category: Medical (2) Primary osteoarthritis, right shoulder: Code(s): M19.011 - Primary osteoarthritis, right shoulder Category: Medical Plan The patient is currently better after intra-articular right shoulder steroid injection. I discussed possibility of treating her pain with neuromodulation. I also discussed possibility of treating her pain with ?[id number] ?arthritis applying platelet rich plasma injection. The patient appears to be interested. She never had injection in the right shoulder before the injection I have done on 04/02/2024. Possibility exists to treat her condition with serious of right shoulder injection since the results of this is promising. The patient is very negative about possibility of having total shoulder or reverse total shoulder replacement. Neuromodulation briefly mentioned today as an implantable device and patient's seem to be interested in those procedures as well. At this time I do not recommend patient to schedule an appointment. She never had physical therapy for the shoulder. I recommended her to start physical therapy she chose to go for physical therapy at [facility] where she very often resides. When her pain will come back I recommend her to call us and schedule appointment with me. Orders: Orders PT Evaluation and Treatment Today M19.011 - Primary osteoarthritis, right shoulder, M25.511 - Pain in right shoulder Coding Level of Care Code New Pt Level 3 (12799) Diagnoses Right shoulder pain M25.511 Primary osteoarthritis, right shoulder M19.011
[2024-05-20 14:35] VITALS: BP 128/70; PULSE 81; RESP 16; O2SAT 95; BMI 32.0
== END 2024-05-20 14:34 | disposition home or self-care (01) ==
PROVIDERS: PCP Nurse Practitioner Family; Visit Provider Anesthesiology
DX: M25.511 Pain in right shoulder (principal); M19.011 Primary osteoarthritis, right shoulder
CPT/HCPCS: 99213

== ENCOUNTER → 2024-05-20 13:51 | Outpatient (BNVA) | payer MEDICARE, OTHER, SELFPAY | PROVIDERS: PCP Nurse Practitioner Family; Visit Provider Anesthesiology | DX: M19.011 Primary osteoarthritis, right shoulder (principal) | CPT/HCPCS: 99212 ==

== ENCOUNTER 2024-05-23 10:57 | Outpatient (AMB) | payer MEDICARE, OTHER, SELFPAY ==
--- NOTE | 2024-05-23 11:25 | MHC.OFFVIS ---
Intake Visit Reasons: Left Knee INJ last inj 02/19/24 Intake Note: Lucita is a 73 year old female who presents today for a repeat injection in the left knee. She was last seen on 02/19/24 for her Left Knee OA where the knee was injected. She was also referred to pain management where she met with Dr. Mix for an intra articular right shoulder injection done on 05/20/2024 Allergies No Known Allergies [No Known Allergies*] Allergy (Verified 05/20/24 14:36) HPI HPI Left Knee INJ last inj 02/19/24: Details: Lucita is a 73 year old female who presents today for a repeat injection in the left knee. She was last seen on 02/19/24 for her Left Knee OA where the knee was injected. She was also referred to pain management where she met with Dr. Mix for an intra articular right shoulder injection done on 05/20/2024 [facility] Medical History Arthritis of left knee Gait disturbance HTN (hypertension) Osteoarthritis IBS (irritable bowel syndrome) Major depression, recurrent, chronic Vitamin D deficiency Abnormal gait Lumbar spinal stenosis Pure hypercholesterolemia Severe major depression without psychotic features Hx of basal cell carcinoma Osteopenia Paroxysmal atrial fibrillation Surgical History History of esophagogastroduodenoscopy (EGD) Hx of colonoscopy Hx of breast biopsy Hx of hysterectomy Hx of appendectomy Family History Father No problems noted. Mother No problems noted. Social History Are you a primary respite care provider to a significant other at home: No Do you presently have visiting nurse or other home services: Yes (FAMILY RESOURCE COORDINATOR 4 hours per week) Comment: aware of trip hazard Patient Tobacco Use Status: Former Tobacco user Tobacco use type: Cigarette Advance Directives Date on File: 11/11/21 service: No Current occupational status: retired Current occupation: rt handed Physical Exam Extrem Other: Left knee with tenderness to palpation medial joint line. Office Procedures Joint Injection/Aspiration Joint Injection/Aspiration Details: Injected 1 mL of Decadron and 3 mL 1% lidocaine and 3 mL of 0.25% Marcaine. Site was prepped using aseptic technique. Patient tolerated the procedure well. Primary Site: left knee Approach Used: anterolateral Coding - Large joint Procedure code (CPT) selection complete Assessment & Plan Assessment & Plan (1) Osteoarthritis of left knee: Code(s): M17.12 - Unilateral primary osteoarthritis, left knee Category: Medical Plan: Left knee OA. I injected her left knee. It helped last time and she would like to repeat. In addition we discussed activity and treatment options in the future should injections failed to benefit her. Coding Level of Care Code Est Pt Level 3 (31638) Diagnoses Osteoarthritis of left knee M17.12 CPT Codes Coding - Large joint: 01634 - Large joint ([id number])
== END 2024-05-23 14:42 | disposition home or self-care (01) ==
PROVIDERS: PCP Nurse Practitioner Family; Visit Provider Orthopaedic Surgery
DX: M17.12 Unilateral primary osteoarthritis, left knee (principal)
CPT/HCPCS: 20610; 99213

== ENCOUNTER → 2024-05-23 10:57 | Outpatient (BNVA) | payer MEDICARE, OTHER, SELFPAY | PROVIDERS: PCP Nurse Practitioner Family; Visit Provider Orthopaedic Surgery | DX: M17.12 Unilateral primary osteoarthritis, left knee (principal) | CPT/HCPCS: 20610; 99212; J0665; J1100 ==

== ENCOUNTER 2024-09-03 09:16 | Outpatient (AMB) | payer MEDICARE, OTHER, SELFPAY ==
--- OUTSIDE RECORDS SUMMARY | 2024-09-03 09:19 | XMS_ITS ---
Author Organization [facility] Address [address] [place] [address] Care Team Providers Care Rn Renal Name Role Phone Caitlyn Swanson NP Primary Care Provider Unavail able CINTHYA ROJO Unavailable [phone] Emergency, Room Unavailable Unavailable X CT SKAGGS Unavailable [phone] REASON FOR VISIT Left Knee Pain Medications Medication SIG (Take, Route, Frequency, Duration) Notes Start Date End Date Status oxyCODONE HCl 10 MG Oral for 4 Days Active Venlafaxine HCl ER 75 MG Oral for 28 Days Active Amphetamine-Dextroamphetami ne 10 MG Oral for 30 Days Active Atorvastatin Calcium 20 MG Oral for 28 Days Active Solifenacin Succinate 5 MG Oral for 28 Days Active Gabapentin 300 MG Oral for 28 Days Active Metoprolol Succinate ER 50 MG Oral for 28 Days Active Eliquis 5 MG Oral for 28 Days Active Prazosin HCl 5 MG Oral for 28 Days Active Pantoprazole Sodium 40 MG Oral for 28 Days Active clonazePAM 2 MG Oral for 30 Days Active LORazepam 1 MG Oral for 10 Days Active Social History Tobacco Use: Social History Observation Description Date Details (start date - stop date) Never Smoker NA - NA Tobacco Use/Smoking Question Answer Notes Current Smoking Status: nonsmoker Alcohol Screen (Audit-C) Question Answer Notes Did you have a drink containing alcohol in the p ast year? No Points 0 Interpretation Negative Encounters Encounter Location Date Provider Diagnosis [facility] [address] [place] [phone] 09/14/2023 CT SKAGGS Plan Of Treatment No Information Progress Notes * Lucita PAREKHDOB:[birth year] (73 yo F)Acc No.[id number]:09/14/2023 Patient:Lucita EARL Provider:?CT SKAGGS PA-C :1950???Age:72 Y???Sex:Female D ate:09/14/2023 Address:[address] [place], [place] [phone] Pcp:Caitlyn Swanson NP Subjective: * Chief Complaints: * ???1. Left Knee Pain. * Medical History:?Anxiety, At tention problems, Depression, Osteoprosis. * Surgical History:?appendix r emoved , Right TKR-[place] 11/02/2021. * Family History:?Father: diag nosed with Heart Disease.? * Social History:?Tobacco Use:?Tobacco Use/Smoking?Current Smoking Status:?nonsmoker.?Drugs/Alcohol:?Drugs?Have you used drugs other than those for medical reasons in the past 12 months??No.?Alcohol Screen (Audit-C)?Did you have a drink containing alcohol in the past year? No,?Points?0,?Interpretation?Negative.?Caffeine?Intake:?1-2 cups per day.?Do you smoke marijuana?: Admits. Do you drink alcohol?: No. * Medications:?Taking oxyCODON E HCl 10 MG Tablet Oral , Taking clonazePAM 2 MG Tablet Oral , Taking LORazepam 1 MG Tablet Oral , Taking Metoprolol Succinate ER 50 MG Tablet Extended Release 24 Hour Oral , Taking Gabapentin 300 MG Capsule Oral , Taking Eliquis 5 MG Tablet Oral , Taking Pantoprazole Sodium 40 MG Tablet Delayed Release Oral , Taking Prazosin HCl 5 MG Capsule Oral , Taking Solifenacin Succinate 5 MG Tablet Oral , Taking Atorvastatin Calcium 20 MG Tablet Oral , Taking Venlafaxine HCl ER 75 MG Capsule Extended Release 24 Hour Oral , Taking Amphetamine- Dextroamphetamine 10 MG Tablet Oral Objective: * Vitals:? Assessment: Plan: * Treatment: * * Electronic signature of ANGIE SKAGGS PA-C on 09/03/2024 at 09:19 AM EST Sign off status: Pending * Provider:?CT SKAGGS PA-C Date :?09/14/2023 Generated for Kirsten rhodes/[employer]/Jeimyitting on:?09/03/2024 09:19 AM EST
--- OUTSIDE RECORDS SUMMARY | 2024-09-03 09:20 | XMS_ITS | Clinical Summary ---
Author Organization Unknown Care Team Providers Care Market Reporter Name Role Phone BENITO VEGA, ALEXANDRA JOHNSON Unavailable Unavailable ALBERTO PT, SHERYL Unavailable Unavailable SPAFFDEANDRE OT, JOE Unavailable Unavailable Payers Payer Name Policy Type Policy Number Effective Date Expira tion Date MEDICARE.NGS.PDGM [id number] Problems Condition Name Condition Details Condition Category Status Onset Date Resolution Date Last Treatment Date Treating Clinician Comments AFTERCARE FOLLOWING JOINT REPLACEMENT SURGERY Active 11-02 00:00: 00 CHRONIC ATRIAL FIBRILLATION , UNSPECIFIED Active 09-04 00:00: 00 ANXIETY DISORDER, UNSPECIFIED Active 09-04 00:00: 00 MAJOR DEPRESSIVE DISORDER, SINGLE EPISODE, UNSPECIFIED Active 09-04 00:00: 00 SPINAL STENOSIS, LUMBAR REGION WITHOUT NEUROGENIC RALEIGH Active 09-04 00:00: 00 AGE-RELATED OSTEOPOROSIS W/O CURRENT PATHOLOGICAL FRACTURE Active 09-04 00:00: 00 ESSENTIAL (PRIMARY) HYPERTENSION Active 09-04 00:00: 00 EDEMA, UNSPECIFIED Active 11-12 00:00: 00 ATTENTION-DE FICIT HYPERACTIVIT Y DISORDER, UNSPECIFIED TYPE Active 09-04 00:00: 00 Irritable bowel syndrome, unspecified Active 09-04 00:00: 00 PURE HYPERCHOLEST EROLEMIA, UNSPECIFIED Active 09-04 00:00: 00 VITAMIN D DEFICIENCY, UNSPECIFIED Active 09-04 00:00: 00 PRESENCE OF RIGHT ARTIFICIAL KNEE JOINT Active 11-02 00:00: 00 PERSONAL HISTORY OF NICOTINE DEPENDENCE Active 09-04 00:00: 00 FPC (CURRENT) USE OF ANTICOAGULAN TS Active 09-04 00:00: 00 Allergies, Adverse Reactions, Alerts Allergy Name Allergy Type Status Severity Reaction(s) Onset Date Inactive Date Treating Clinician Comments NO KNOWN ALLERGIES Propensity to adverse reactions Active 11-22 09:05: 45 Medications Ordered Medication Name Filled Medication Name Start Date Stop Date Current Medication? Ordering Clinician Indication Dosage Frequency Signature (SIG) Comments Components clonazepam 2 mg tablet 1- 00:00: 00 Yes [id number] anxiety Per instruc tions TWICE A DAY NEEDED Per instructio ns TWICE A DAY NEEDED (route: oral) Med Classific ation: Central Nervous System Agents hydroxyzine pamoate 25 mg capsule 11-18 00:00: 00 Yes [id number] DIRECTED Per instruc tions DAILY Per instructio ns DAILY (route: oral) Med Classific ation: Central Nervous System Agents clonazepam 2 mg tablet 11-18 00:00: 00 11-23 11:23 :37.2 3 No [id number] DIRECTED Per instruc tions 2 TIMES DAILY Per instructio ns 2 TIMES DAILY (route: oral) Med Classific ation: Central Nervous System Agents pantoprazol e 40 mg tablet,dane yed release 10-05 00:00: 00 Yes [id number] DIRECTED Per instruc tions DAILY Per instructio ns DAILY (route: oral) Med Classific ation: Gastroint estinal Therapy Agents prazosin 2 mg capsule 11-18 00:00: 00 Yes [id number] DIRECTED Per instruc tions DAILY Per instructio ns DAILY (route: oral) Med Classific ation: Cardiovas cular Therapy Agents dextroamphe tamine-amph etamine 15 mg tablet 1-30 00:00: 00 Yes [id number] DIRECTED Per instruc tions TWICE A DAY Per instructio ns TWICE A DAY (route: oral) Med Classific ation: Central Nervous System Agents solifenacin 5 mg tablet 10-05 00:00: 00 Yes [id number] DIRECTED Per instruc tions DAILY Per instructio ns DAILY (route: oral) Med Classific ation: Genitouri nary Therapy metoprolol succinate ER 50 mg tablet,exte nded release 24 hr 10-05 00:00: 00 Yes [id number] DIRECTED Per instruc tions DAILY Per instructio ns DAILY (route: oral) Med Classific ation: Cardiovas cular Therapy Agents venlafaxine ER 75 mg capsule,ext ended release 24 hr 11-18 00:00: 00 Yes [id number] DIRECTED Per instruc tions DAILY Per instructio ns DAILY (route: oral) Med Classific ation: Central Nervous System Agents gabapentin 300 mg capsule -17 00:00: 00 Yes [id number] DIRECTED Per instruc tions DAILY Per instructio ns DAILY (route: oral) Med Classific ation: Central Nervous System Agents oxycodone 5 mg capsule 11-22 00:00: 00 Yes [id number] pain 1-2 mg 2 TIMES DAILY 1-2 mg 2 TIMES DAILY (route: oral) Med Classific ation: Analgesic , Anti-infl ammatory or Antipyret ic Tylenol Extra Strength 500 mg tablet 11-22 00:00: 00 Yes [id number] DIRECTED 2 tablet 3 TIMES DAILY 2 tablet 3 TIMES DAILY (route: oral) Med Classific ation: Analgesic , Anti-infl ammatory or Antipyret ic furosemide 40 mg tablet 3-14 00:00: 00 Yes [id number] edema 1 tablet DAILY 1 tablet DAILY (route: oral) Med Classific ation: Cardiovas cular Therapy Agents Eliquis 5 mg tablet 3-10 00:00: 00 Yes [id number] afib 1 tablet 2 TIMES DAILY 1 tablet 2 TIMES DAILY (route: oral) Med Classific ation: Hematolog ical Agents Vital Signs Vital Name Observation Time Observation Value Commen ts Temperature 2021-12-09 14:27:00.000 97.2 [degF] Temperature 2021-12-07 09:13:00.000 97.3 [degF] Temperature 2021-12-06 10:09:00.000 98.1 [degF] Temperature 2021-12-03 09:08:00.000 98.3 [degF] Temperature 2021-12-02 10:56:00.000 97 [degF] Temperature 2021 09:12:00.000 97.5 [degF] Temperature 2021-11-24 13:15:00.000 98.9 [degF] Temperature 2021-11-23 16:05:00.000 97.3 [degF] Temperature 2021-11-22 08:39:00.000 97.9 [degF] Height 2021-11-22 08:35:59.000 67 [in_us] Pulse 2021-12-09 14:27:00.000 79 /min Pulse 2021-12-07 09:13:00.000 74 /min Pulse 2021-12-06 10:09:00.000 80 /min Pulse 2021-12-03 09:08:00.000 92 /min Pulse 2021-12-02 10:56:00.000 85 /min Pulse 2021 09:12:00.000 77 /min Pulse 2021-11-24 13:15:00.000 85 /min Pulse 2021-11-23 16:05:00.000 71 /min Pulse 2021-11-22 08:39:00.000 86 /min O2 Saturation (%) 2021-12-07 09:13:00.000 97 % O2 Saturation (%) 2021-12-02 10:56:00.000 95 % O2 Saturation (%) 2021-11-23 16:05:00.000 95 % Respirations 2021-12-09 14:27:00.000 18 /min Respirations 2021-12-07 09:13:00.000 18 /min Respirations 2021-12-06 10:09:00.000 18 /min Respirations 2021-12-03 09:08:00.000 18 /min Respirations 2021-12-02 10:56:00.000 18 /min Respirations 2021 09:12:00.000 18 /min Respirations 2021-11-24 13:15:00.000 18 /min Respirations 2021-11-23 16:05:00.000 18 /min Respirations 2021-11-22 08:39:00.000 18 /min Weight (lbs) 2021-11-22 08:36:04.000 252 [lb_av] Systolic Blood Pressure 2021-12-09 14:27:00.000 120 mm [Hg] Systolic Blood Pressure 2021-12-07 09:13:00.000 116 mm [Hg] Systolic Blood Pressure 2021-12-06 10:09:00.000 136 mm [Hg] Systolic Blood Pressure 2021-12-03 09:08:00.000 130 mm [Hg] Systolic Blood Pressure 2021-12-02 10:56:00.000 118 mm [Hg] Systolic Blood Pressure 2021 09:12:00.000 158 mm [Hg] Systolic Blood Pressure 2021-11-24 13:15:00.000 124 mm [Hg] Systolic Blood Pressure 2021-11-23 16:05:00.000 122 mm [Hg] Systolic Blood Pressure 2021-11-22 08:39:00.000 144 mm [Hg] Diastolic Blood Pressure 2021-12-09 14:27:00.000 78 mm [Hg] Diastolic Blood Pressure 2021-12-07 09:13:00.000 64 mm [Hg] Diastolic Blood Pressure 2021-12-06 10:09:00.000 74 mm [Hg] Diastolic Blood Pressure 2021-12-03 09:08:00.000 72 mm [Hg] Diastolic Blood Pressure 2021-12-02 10:56:00.000 70 mm [Hg] Diastolic Blood Pressure 2021 09:12:00.000 88 mm [Hg] Diastolic Blood Pressure 2021-11-24 13:15:00.000 78 mm [Hg] Diastolic Blood Pressure 2021-11-23 16:05:00.000 76 mm [Hg] Diastolic Blood Pressure 2021-11-22 08:39:00.000 78 mm [Hg] Plan of Treatment Planned Activity Planned Date Details Comments Future Scheduled Test AGENCY MAY PERFORM A RESUMPTION OF CARE VISIT FOLLOWING ANY HOSPITAL ADMISSION. PHYSICAL THERAPY TO EVALUATE, ASSESS AND MONITOR, PROVIDE SKILLED THERAPEUTIC INTERVENTION, ACTIVITY, EDUCATION, AND TRAINING TO ADDRESS: [code = AGENCY MAY PERFORM A RESUMPTION OF CARE VISIT FOLLOWING ANY HOSPITAL ADMISSION. PHYSICAL THERAPY TO EVALUATE, ASSESS AND MONITOR, PROVIDE SKILLED THERAPEUTIC INTERVENTION, ACTIVITY, EDUCATION, AND TRAINING TO ADDRESS:] Future Scheduled Test TRANSFER T RAINING (PT) [code = TRANSFER TRAINING (PT)] Future Scheduled Test GAIT TRAIN ING (PT) [code = GAIT TRAINING (PT)] Future Scheduled Test NEUROMUSCU LAR RE-EDUCATION / BALANCE RETRAINING (PT) [code = NEUROMUSCULAR RE-EDUCATION / BALANCE RETRAINING (PT)] Future Scheduled Test THERAPEUTI C EXERCISES (PT) [code = THERAPEUTIC EXERCISES (PT)] Future Scheduled Test ORTHOPEDIC SURGICAL AFTERCARE (PT) MAY TEACH PATIENT APPLICATION OF CRYOTHERAPY FOR PAIN AND/OR SWELLING UP TO 20 MIN AT A TIME OVER INCISION/JOINT [code = ORTHOPEDIC SURGICAL AFTERCARE (PT) MAY TEACH PATIENT APPLICATION OF CRYOTHERAPY FOR PAIN AND/OR SWELLING UP TO 20 MIN AT A TIME OVER INCISION/JOINT] Future Scheduled Test KNEE REPLA CEMENT SELF-MANAGEMENT (PT) [code = KNEE REPLACEMENT SELF-MANAGEMENT (PT)] Future Scheduled Test IDENTIFY F ALL RISK FACTORS AND ESTABLISH HOME EXERCISE PROGRAM TO MINIMIZE FALL RISK (PT) [code = IDENTIFY FALL RISK FACTORS AND ESTABLISH HOME EXERCISE PROGRAM TO MINIMIZE FALL RISK (PT)] Future Scheduled Test PHYSICAL T HERAPY TO INSTRUCT PATIENT/CAREGIVER ON RISK FOR HOSPITALIZATION, TEACH SIGNS AND SYMPTOMS THAT PUT PATIENT AT RISK, WHEN TO NOTIFY CLINICIAN OF COMPLICATIONS/DECLINE, AND WHEN TO CALL 911. PHYSICAL THERAPY TO INSTRUCT PATIENT/CAREGIVER ON: SIGNS AND SYMPTOMS TO BE ON ALERT FOR EARLY INTERVENTION, PRIOR TO NEEDING EMERGENCY SERVICES CALL US FIRST TO KEEP EARTH SCIENCE PROFESSOR SYMPTOM REPORT FOR VISIBLE REFERENCE NOTIFY CLINICIAN/PHYSICIAN FOR DECLINE IN STATUS WHEN AND HOW TO CALL HOME HEALTH AGENCY FACILITATE PHYSICIAN FOLLOW UP APPOINTMENT IDENTIFY SOCIOECONOMIC CONCERNS AND MAKE APPROPRIATE REFERRAL NEEDED [code = PHYSICAL THERAPY TO INSTRUCT PATIENT/CAREGIVER ON RISK FOR HOSPITALIZATION, TEACH SIGNS AND SYMPTOMS THAT PUT PATIENT AT RISK, WHEN TO NOTIFY CLINICIAN OF COMPLICATIONS/DECLINE, AND WHEN TO CALL 911. PHYSICAL THERAPY TO INSTRUCT PATIENT/CAREGIVER ON: SIGNS AND SYMPTOMS TO BE ON ALERT FOR EARLY INTERVENTION, PRIOR TO NEEDING EMERGENCY SERVICES CALL US FIRST TO KEEP EARTH SCIENCE PROFESSOR SYMPTOM REPORT FOR VISIBLE REFERENCE NOTIFY CLINICIAN/PHYSICIAN FOR DECLINE IN STATUS WHEN AND HOW TO CALL HOME HEALTH AGENCY FACILITATE PHYSICIAN FOLLOW UP APPOINTMENT IDENTIFY SOCIOECONOMIC CONCERNS AND MAKE APPROPRIATE REFERRAL NEEDED] Future Scheduled Test AGENCY MAY PERFORM A RESUMPTION OF CARE VISIT FOLLOWING ANY HOSPITAL ADMISSION. OCCUPATIONAL THERAPY TO EVALUATE, ASSESS, AND MONITOR, PROVIDE SKILLED THERAPEUTIC INTERVENTION, ACTIVITY, EDUCATION, AND TRAINING TO ADDRESS; WEAKNESS, IMPAIRED BALANCE, FALL PREVENTION, PAIN MANAGEMENT, ORTHOPEDIC AFTERCARE, DECLINE IN BATHING AND SHOWER TRANSFERS. BATHING/SHOWERING (OT) HEALTH MANAGEMENT- PHYSICAL ACTIVITY (OT) PAIN MANAGEMENT (OT) FALL REDUCTION (OT) SURGICAL AFTERCARE EDUCATION (OT) KNEE REPLACEMENT (OT) [code = AGENCY MAY PERFORM A RESUMPTION OF CARE VISIT FOLLOWING ANY HOSPITAL ADMISSION. OCCUPATIONAL THERAPY TO EVALUATE, ASSESS, AND MONITOR, PROVIDE SKILLED THERAPEUTIC INTERVENTION, ACTIVITY, EDUCATION, AND TRAINING TO ADDRESS; WEAKNESS, IMPAIRED BALANCE, FALL PREVENTION, PAIN MANAGEMENT, ORTHOPEDIC AFTERCARE, DECLINE IN BATHING AND SHOWER TRANSFERS. BATHING/SHOWERING (OT) HEALTH MANAGEMENT- PHYSICAL ACTIVITY (OT) PAIN MANAGEMENT (OT) FALL REDUCTION (OT) SURGICAL AFTERCARE EDUCATION (OT) KNEE REPLACEMENT (OT)] Goal 2021-12-09 Patient Goal - I WANT TO BE ABKE TO DRIVE Goal Provider Goal - PATIENT WILL DEMO INDEP PERFORMANCE OF HOUSEHOLD TRANSFERS WITH SPC USE IN 4 WEEKS TO PROMOTE IMPROVED FUNCTIONAL MOBILITY Goal Provider Goal - PATIENT WILL DEMO INDEP PERFORMANCE OF HOUSEHOLD GAIT AND STAIRS WITH SPC USE IN 8 WEEKS TO PROMOTE IMPROVED FUNCTIONAL MOBILITY Goal Provider Goal - PATIENT WILL IMPROVE TUG SCORE TO Q8 SECONDS AND 19 TINETTI SCORE IN 8 WEEKS TO PROMOTE IMPROVED BALANCE INPUT INTEGRATION Goal Provider Goal - PATIENT WILL DEMO INDEP PERFORMANCE OF STANDING THEREX AND SEATED ROM TECHNIQUES IN 4 WEEKS TO PROMOTE IMPROVED FUNCTIONAL MOBILITY PATIENT WILL IMPROVE LE STRENGTH LEVELS TO GROSSLY 4/5 AND 120 DEGREES FLEXION AND FULL EXTENSION IN 8 WEEKS TO PROMOTE IMPROVED FUNCTIONAL MOBILITY Goal Provider Goal - PATIENT WILL DEMONSTRATE NORMAL HEALING FOLLOWING SURGERY WITH NO COMPLICATIONS BY DISCHARGE. Goal Provider Goal - PT GOAL: PATIENT WILL DEMONSTRATE OPTIMAL OUTCOMES, INCLUDING INCREASED ROM AND STRENGTH FOLLOWING TKA BY DISCHARGE. Goal Provider Goal - PATIENT/CAREGIVER WILL DEMONSTRATE ADHERENCE TO FALL REDUCTION SELF MANAGEMENT TO MINIMIZE FALL RISK BY DISCHARGE. Goal Provider Goal - PATIENT/CAREGIVER WILL VERBALIZE UNDERSTANDING OF SIGNS AND SYMPTOMS THAT PUT THE PATIENT AT RISK FOR HOSPITALIZATION, WHEN TO NOTIFY THERAPIST/NURSE OF COMPLICATIONS/DECLINE AND WHEN TO CALL 911. Goal Provider Goal - OT STG: PATIENT WILL DEMONSTRATE IMPROVED BATHING WITH MIN ASSIST WITHIN 2 WEEKS. OT LTG: PATIENT WILL DEMONSTRATE IMPROVED ABILITY TO PERFORM BATHING/SHOWERING FROM MOD ASSIST TO INDEPENDENT WITHIN 8 WEEKS. OT STG: PATIENT WILL DEMONSTRATE IMPROVED SHOWER TRANSFERS WITH MOD ASSIST WITHIN 2 WEEKS. OT LTG: PATIENT WILL DEMONSTRATE IMPROVED ABILITY TO PERFORM BATH/SHOWER TRANSFER FROM UNABLE TO INDEPENDENT WITHIN 8 WEEKS. OT LTG: PATIENT WILL DEMONSTRATE THE ABILITY TO COMPLETE A THERAPEUTIC TASK ORIENTED PROGRAM TO RESTORE PHYSICAL FUNCTION/HEALTH MANAGEMENT FROM N/A TO I DEPENDENT WITHIN 8 WEEKS. PATIENT WILL VERBALIZE UNDERSTANDING OF PAIN MANAGEMENT TECHNIQUES BY DISCHARGE. PATIENT/CAREGIVER WILL BE ABLE TO IMPLEMENT OCCUPATIONAL THERAPY EDUCATION RECOMMENDATIONS SPECIFIC TO FALL REDUCTION FOR IMPROVED ADL/IADL COMPLETION AND HOME SAFETY BY DISCHARGE. OT GOAL: PATIENT/CAREGIVER WILL INCORPORATE SURGICAL AFTERCARE PATIENT EMPOWERMENT STRATEGIES INTO DAILY ROUTINE BY DISCHARGE OT GOAL: PATIENT/CAREGIVER WILL INCORPORATE TOTAL KNEE REPLACEMENT PATIENT EMPOWERMENT STRATEGIES INTO DAILY ROUTINE BY DISCHARGE. Reason for Visit INDEPENDENT IN THE HOME Encounters Start Date/Time End Date/Time Encounter Type Admission Type Attending [facility] Care Department Encounter ID Discharge Date Discharge Status Discharge Condition Discharge Reason Percent Goals Met 2021-11-22 00:00:00 2021-12-09 00:00:00 Outpatient NEW ADMISSION SHERYL DOMINGUEZ [facility] [id number] 2021-12-09 00:00:00 DISCHARGE TO HOME OR SELF CARE INDEPENDEN T IN THE HOME HH ONLY - OUT PATIENT 100.00
--- OUTSIDE RECORDS SUMMARY | 2024-09-03 09:20 | XMS_ITS | Patient Health Record ---
Author Organization [facility] Address [address] [place] [address] Care Team Providers Care Decorating Supervisor Name Role Phone Sky KYLE, Caitlyn Primary Care Provider Unavail able CINTHYA ROJO Unavailable [phone] Emergency, Room Unavailable Unavailable X CT SKAGGS Unavailable Reason For Referral No Information Medications Medication SIG (Take, Route, Frequency, Duration) Notes Start Date End Date Status clonazePAM 2 MG Oral for 30 Days Active oxyCODONE HCl 10 MG Oral for 4 Days Active Venlafaxine HCl ER 75 MG Oral for 28 Days Active LORazepam 1 MG Oral for 10 Days Active Amphetamine-Dextroamphetami ne 10 MG Oral for 30 Days Active Gabapentin 300 MG Oral for 28 Days Active Metoprolol Succinate ER 50 MG Oral for 28 Days Active Eliquis 5 MG Oral for 28 Days Active Prazosin HCl 5 MG Oral for 28 Days Active Pantoprazole Sodium 40 MG Oral for 28 Days Active Atorvastatin Calcium 20 MG Oral for 28 Days Active Solifenacin Succinate 5 MG Oral for 28 Days Active Social History Tobacco Use: Social History Observation Description Date Details (start date - stop date) Never Smoker NA - NA Tobacco Use/Smoking Question Answer Notes Current Smoking Status: nonsmoker Alcohol Screen (Audit-C) Question Answer Notes Did you have a drink containing alcohol in the p ast year? 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 (M18.0) Active confirmed Problem 4198261054810089 Arthritis of carpometacarpal (CMC) joint of both thumbs (M18.0) Active confirmed Plan Of Treatment No Information Insurance Providers Payer Name Payer Address Payer Phone Subscriber Number Group Number Insured Name Patient Relationship to Insured Coverage Start Date Coverage End Date Medicare [address] [place] [id number] Lucita Young Self - patient is the insured [facility] [address] [facility] [address] [id number] Lucita Young Self - patient is the insured Medications Administered Medication Instructions Date of Administration Dosage Notes AspInj Large Joint Bursa UGI 04/28/2023 AspInj Small Joint Bursa 04/18/2023 Celestone 04/18/2023 6 mg Celestone 04/28/2023 3 mg Medical (General) History Medical History History ICD Code anxiety attention problems depression osteoprosis Surgical History Surgery Date(Month/Year) appendix removed Right TKR-[place] 11/02/2021
--- OUTSIDE RECORDS SUMMARY | 2024-09-03 09:20 | XMS_ITS ---
Author Organization [facility] Address [address] [place] [address] Care Team Providers Care Communications Equipment Supervisor Name Role Phone Caitlyn Swanson NP Primary Care Provider Unavail able CINTHYA ROJO Unavailable [phone] Emergency, Room Unavailable Unavailable CASPER SANTOS Unavailable [phone] REASON FOR VISIT left shoulder fx Medications Medication SIG (Take, Route, Frequency, Duration) Notes Start Date End Date Status Venlafaxine HCl ER 75 MG Oral for 28 Days Active Atorvastatin Calcium 20 MG Oral for 28 Days Active Solifenacin Succinate 5 MG Oral for 28 Days Active Prazosin HCl 5 MG Oral for 28 Days Active Amphetamine-Dextroamphetami ne 10 MG Oral for 30 Days Active Pantoprazole Sodium 40 MG Oral for 28 Days Active Eliquis 5 MG Oral for 28 Days Active Gabapentin 300 MG Oral for 28 Days Active Metoprolol Succinate ER 50 MG Oral for 28 Days Active LORazepam 1 MG Oral for 10 Days Active oxyCODONE HCl 10 MG Oral for 4 Days Active clonazePAM 2 MG Oral for 30 Days Active Social History Tobacco Use: Social History Observation Description Date Details (start date - stop date) Never Smoker NA - NA Tobacco Use/Smoking Question Answer Notes Current Smoking Status: nonsmoker Alcohol Screen (Audit-C) Question Answer Notes Did you have a drink containing alcohol in the p ast year? No Points 0 Interpretation Negative Encounters Encounter Location Date Provider Diagnosis [facility] [address] [place] [address] 07/24/2023 CASPER SANTOS Plan Of Treatment No Information Progress Notes * Jing PAREKHB:[birth year] (73 yo F)Acc No.[id number]:07/24/2023 Progress Notes Patient:?Lucita PAREKH Provider:?DAT Chamberlain :1950???Age:72 Y???Sex:Female D ate:07/24/2023 Address:[address] [place], [place] [id number] Pcp:Caitlyn Swanson NP Subjective: * Chief Complaints: * ???1. Left shoulder fx. * Medical History:?Anxiety, At tention problems, Depression, Osteoprosis. * Surgical History:?appendix r emoved , Right TKR-[place] 11/02/2021. * Family History:?Father: angus nosed with Heart Disease.? * Social History:?Tobacco Use:?Tobacco Use/Smoking?Current Smoking Status:?nonsmoker ???Drugs/Alcohol:?Drugs?Have you used drugs other than those for medical reasons in the past 12 months??No ?Alcohol Screen (Audit-C)?Did you have a drink containing alcohol in the past year??No ?Points?0 ?Interpretation?Negative ?Caffeine?Intake:?1-2 cups per day ?Do you smoke marijuana?: Admits. ?Do you drink alcohol?: No. * Medications:?Taking oxyCODON [...] * Treatment: * * Electronic signature of JOYCE CLARK on 09/03/2024 at 09:19 AM EST Sign off status: Pending * Provider:?DAT Chamberlain Date: ?07/24/2023 Generated for Kirsten rhodes/[employer] on:?09/03/2024 09:19 AM EST
--- OUTSIDE RECORDS SUMMARY | 2024-09-03 09:20 | XMS_ITS ---
Author Organization [facility] Address [address] [place] [address] Care Team Providers Care Solar Sales Manager Name Role Phone Sky KYLE, Caitlyn Primary Care Provider Unavail able CINTHYA ROJO Unavailable [phone] Emergency, Room Unavailable Unavailable CASPER SANTOS Unavailable [phone] REASON FOR VISIT left shoulder fx Encounters Encounter Location Date Provider Diagnosis CCOHY [facility] [address] [place] [phone] 07/25/2023 CASPER SANTOS Plan Of Treatment No Information Progress Notes * Lucita PAREKHDOB:[birth year] (73 yo F)Acc No.[id number]:07/25/2023 Progress Notes Patient:?Lucita PAREKH Provider:?DAT Chamberlain :1950???Age:72 Y???Sex:Female D ate:07/25/2023 Address:[address] [place], [place] [id number] Pcp:Caitlyn Swanson NP Subjective: * Chief Complaints: * ???1. Left shoulder fx. * Medical History:? Objective: * Vitals:? Assessment: Plan: * Treatment: * * Electronic signature of JOYCE CLARK on 09/03/2024 at 09:19 AM EST Sign off status: Pending * Provider:?DAT Chamberlain Date: ?07/25/2023 Generated for Kirsten rhodes/[employer]odak/Jeimyitting on:?09/03/2024 09:19 AM EST
--- NOTE | 2024-09-03 09:25 | MHC.OFFVIS ---
Vital Signs 09/03/24 09:33 Height 5 ft 6 in Weight 189 lb BMI 30.5 Intake Visit Reasons: INP-Gait / Mobility Intake Note: Patient presents for gait Allergies No Known Allergies [No Known Allergies*] Allergy (Verified 09/03/24 09:35) Medication List - Last Reconciled 09/03/24 by Stephanie Verma MD acetaminophen 1,000 mg PO TID amoxicillin 2,000 mg (4 x 500 mg) PO ONCE 1 day apixaban (Eliquis) 5 mg PO BID cholecalciferol (vitamin D3) 25 mcg PO DAILY clonazepam 2 mg PO BID PRN dextroamphetamine-amphetamine 10 mg ER 1 cap PO QAM dextroamphetamine-amphetamine 5 mg 1 tab PO DAILY gabapentin 300 mg PO BEDTIME hydroxyzine pamoate 25 mg PO BEDTIME melatonin 9 mg PO BEDTIME metoprolol succinate ER 50 mg PO DAILY [Neoprene wrist sleeve As directed] pantoprazole 40 mg PO DAILY@0630 prazosin 5 mg PO BEDTIME solifenacin 5 mg PO DAILY venlafaxine ER 75 mg PO DAILY walker Folding Front wheeled walker walker Rollator walker with seat and breaks HPI Comments Details: 73y/o female comes for evaluation of gait abnormality. About 5 years ago she was admitted for depression and prior to her discharge she was trialed on a new medication for depression, 3 weeks after she started the medication she noticed that her balance was off. she also had an episode where she felt like her left leg was stuck and fell. she had similar episodes 3 more times. Her psychiatrist tapered off the new antidepressant and started PT.with PT she recovered about 85 %. she still has rare falls . last fall was over 1 year ago.she walks with a cane and still feels off balance. she denies dizziness .No double vision, tremors. she denies neck. she also has Lumbar spinal stenosis and arthritis. No h/o heavy alcohol use. she sees ortho for her knees .she had right knee replacement she has urinary frequency and urgency. she exercises everyday- chair yoga , core classes etc.she has mild memory issues. she has chronic depression. [facility] Medical History (Updated 09/03/24 @ 10:07 by Stephanie Verma MD) Gait apraxia Arthritis of left knee Gait disturbance HTN (hypertension) Osteoarthritis IBS (irritable bowel syndrome) Major depression, recurrent, chronic Vitamin D deficiency Abnormal gait Pure hypercholesterolemia Severe major depression without psychotic features Hx of basal cell carcinoma Osteopenia Paroxysmal atrial fibrillation Surgical History History of esophagogastroduodenoscopy (EGD) Hx of colonoscopy Hx of breast biopsy Hx of hysterectomy Hx of appendectomy Family History Father No problems noted. Mother No problems noted. Social History Are you a primary healthcare corporate account director to a significant other at home: No Do you presently have visiting nurse or other home services: Yes (SUPERVISOR PIPELINE MAINTENANCE 4 hours per week) Comment: aware of trip hazard Patient Tobacco Use Status: Former Tobacco user Tobacco use type: Cigarette Advance Directives Date on File: 11/11/21 service: No Current occupational status: retired Current occupation: rt handed Physical Exam Vital Signs: BMI result Body Mass Index 30.5 Const General: cooperative, comfortable and anxious Nutritional Appearance: overweight Orientation/consciousness: patient oriented x3 Eyes Pupils: Equal, round and reactive pupils present Neuro Other: gait- slow, narrow base, antalgic , guards her left leg General: patient oriented x3, tone normal, moves all extremities and no focal motor deficits Cranial nerves: Yes Facial sensation intact/muscles of mastication intact, Yes Equal, round and reactive pupils present, Yes Bilaterally intact EOM present, Yes Nystagmus not present, Yes Normal facial strength present and Yes Midline tongue present Cognition (Neuro): normal cognition Gait exam (Neuro): Antalgic gait present Motor exam (neuro): 5/5 motor strength present throughout and Normal motor muscle tone present throughout Deep tendon reflexes (DTR's): Right triceps reflex intensity grade: 1+, Left triceps reflex intensity grade: 1+, Rt Biceps (C5, C6): 1+, Left biceps reflex intensity grade: 1+, Right brachioradialis reflex intensity grade: 1+, Left brachioradialis reflex intensity grade: 1+, Right patellar reflex intensity grade: 1+, Left patellar reflex intensity grade: 1+ and Right ankle reflex intensity grade: 1+ Coordination: [id number] test normal Assessment & Plan Assessment & Plan (1) Gait apraxia: Comment: multifactorial, musculoskeletal issues. left knee pain, fear of falls, anxiety etc Code(s): R48.2 - Apraxia Category: Medical Plan MRI brain to evaluate for ventricular enlargement, white matter disease etc Continue PT She will benefit from left knee - procedure to help with pain . No evidence of parkinsons. F/u psychiatry Orders: Orders Vitamin B12 and Folate Today R48.2 - Apraxia MR head/brain wo con Today R48.2 - Apraxia Coding Level of Care Code New Pt Level 4 (81573) Complex EM visit Add On G2211 Diagnoses Gait apraxia R48.2
[2024-09-03 09:33] VITALS: BMI 30.5
== END 2024-09-03 10:17 | disposition home or self-care (01) ==
PROVIDERS: Visit Provider Psychiatry & Neurology Neurology
DX: R48.2 Apraxia (principal)
CPT/HCPCS: 99204; G2211

== ENCOUNTER → 2024-09-03 09:16 | Outpatient (BNVA) | payer MEDICARE, OTHER, SELFPAY | PROVIDERS: Visit Provider Psychiatry & Neurology Neurology | DX: R48.2 Apraxia (principal) | CPT/HCPCS: 99202 ==

== ENCOUNTER 2024-09-05 11:15 | Outpatient (REF) | payer MEDICARE, OTHER, SELFPAY ==
--- OUTSIDE RECORDS SUMMARY | 2024-09-05 12:19 | XMS_ITS ---
Author Organization [facility] Address [address] [place] [address] Care Team Providers Care Skein Winder Name Role Phone Sky KYLE, Caitlyn Primary Care Provider Unavail able CINTHYA ROJO Unavailable [phone] Emergency, Room Unavailable Unavailable CASPER SANTOS Unavailable [phone] REASON FOR VISIT left shoulder fx Encounters Encounter Location Date Provider Diagnosis [facility] [address] [place] [phone] 07/25/2023 ACSPER SANTOS Plan Of Treatment No Information Progress Notes * Lucita PAREKHDOB:[birth year] (73 yo F)Acc No.[id number]:07/25/2023 Progress Notes Patient:?Lucita PAREKH Provider:?DAT Chamberlain :1950???Age:72 Y???Sex:Female D ate:07/25/2023 Address:[address] [place], [place] [phone] Pcp:Caitlyn Swanson NP Subjective: * Chief Complaints: * ???1. Left shoulder fx. * Medical History:? Objective: * Vitals:? Assessment: Plan: * Treatment: * * Electronic signature of JOYCE CLARK on 09/05/2024 at 12:19 PM EST Sign off status: Pending * Provider:?DAT Chamberlain Date: ?07/25/2023 Generated for Kirsten rhodes/[employer]/Janell on:?09/05/2024 12:19 PM EST
--- OUTSIDE RECORDS SUMMARY | 2024-09-05 12:19 | XMS_ITS ---
Author Organization [facility] Address [address] [place] [address] Care Team Providers Care Chopped Strand Operator Name Role Phone Caitlyn Swanson NP Primary Care Provider Unavail able CINTHYA ROJO Unavailable [phone] Emergency, Room Unavailable Unavailable X CT SKAGGS Unavailable REASON FOR VISIT Left Knee Pain Medications [...] Encounter Location Date Provider Diagnosis CCOHY [facility] [address] [place] [phone] 09/14/2023 CT SKAGGS Plan Of Treatment No Information Progress Notes * Lucita PAREKHDOB:[birth year] (73 yo F)Acc No.[id number]:09/14/2023 Patient:Lucita EARL Provider:?CT SKAGGS PA-C :1950???Age:72 Y???Sex:Female D ate:09/14/2023 Address:[address] [place], [place] [phone] Pcp:Caitlyn Swanson NP Subjective: * Chief Complaints: * ???1. Left Knee Pain. * Medical History:?Anxiety, At tention problems, Depression, Osteoprosis. * Surgical History:?appendix r emoved , Right TKR-[place] 11/02/2021. * Family History:?Father: diag nosed with [...] Electronic signature of ANGIE SKAGGS PA-C on 09/05/2024 at 12:19 PM EST Sign off status: Pending * Provider:?CT SKAGGS PA-C Date :?09/14/2023 Generated for Kirsten rhodes/[employer]/Janell on:?09/05/2024 12:19 PM EST
--- OUTSIDE RECORDS SUMMARY | 2024-09-05 12:19 | XMS_ITS ---
Author Organization [facility] Address [address] [place] [address] Care Team Providers Care Grocery Store Clerk Name Role Phone Caitlyn Swanson NP Primary Care Provider Unavail able CINTHYA ROJO Unavailable [phone] Emergency, Room Unavailable Unavailable HARESH SANTOS Unavailable [phone] REASON FOR VISIT left shoulder fx Medications [...] Encounters Encounter Location Date Provider Diagnosis CCOHY [facility] [address] [place] [address] 07/24/2023 HARESH SANTOS Plan Of Treatment No Information Progress Notes * Jing PAREKHB:[birth year] (73 yo F)Acc No.[id number]:07/24/2023 Progress Notes Patient:?Lucita PAREKH Provider:?DAT Chamberlain :1950???Age:72 Y???Sex:Female D ate:07/24/2023 Address:[address] [place], [place] [phone] Pcp:Caitlyn Swanson NP Subjective: * Chief Complaints: * ???1. Left shoulder fx. * Medical History:?Anxiety, At tention problems, Depression, Osteoprosis. * Surgical History:?appendix r emoved , Right TKR-[place] 11/02/2021. * Family History:?Father: angus nosed with [...] PM EST Sign off status: Pending * Provider:?Haresh Santos, DAT Date: ?07/24/2023 Generated for Kirsten rhodes/[employer]/Janell on:?09/05/2024 12:19 PM EST
--- OUTSIDE RECORDS SUMMARY | 2024-09-05 12:20 | XMS_ITS | Patient Health Record ---
Author Organization [facility] Address [address] [place] [address] Care Team Providers Care Negative Assembler Name Role Phone Sky KYLE, Caitlyn Primary Care Provider Unavail able CINTHYA ROJO Unavailable [phone] Emergency, Room Unavailable Unavailable X CT SKAGGS [...] Status Risk Notes Problem Right shoulder pain (4508735860) Right shoulder pain (M25.511) Active confirmed Problem Left shoulder pain (3398459106) Left shoulder pain (M25.512) Active confirmed Problem 189661876 Balance disorder (R26.89) Active confirmed Problem 748462205 Right anterior knee pain (M25.561) Active confirmed Problem 334113837143514 Osteoarthritis o f carpometacarpal (CMC) joint of both thumbs (M18.0) Active confirmed Problem 4050893352040403 Arthritis of carpometacarpal (CMC) joint of both thumbs (M18.0) Active confirmed Plan Of Treatment No Information Insurance Providers Payer Name Payer Address Payer Phone Subscriber Number Group Number Insured Name Patient Relationship to Insured Coverage Start Date Coverage End Date Medicare [address] [place] [id number] Lucita Young Self - patient is the insured [facility] [address] [facility] [address] [phone] [id number] Lucita Young Self - patient is the [...]
[2024-09-05 12:59] LABS: Folate 5.3 ng/mL (> or = 4.0); Vitamin B12 646 pg/mL (200-900)
== END 2024-09-05 11:16 | disposition home or self-care (01) ==
LOC: HO.LAB 11:15
PROVIDERS: PCP Nurse Practitioner Family; Visit Provider Psychiatry & Neurology Neurology
DX: R48.2 Apraxia (principal)
CPT/HCPCS: 36415; 82607; 82746

== ENCOUNTER 2024-09-06 15:47 | Outpatient (REF) | payer MEDICARE, OTHER, SELFPAY ==
--- NOTE | ~2024-09-06 | MR_ITS ---
EXAMINATION: MR BRAIN WITHOUT IV CONTRAST HISTORY: R48.2 - Apraxia TECHNIQUE: Sagittal T1, and axial T1, FLAIR, T2, gradient echo, and diffusion weighted MR images of the brain were obtained. COMPARISON: Correlation is made with an unenhanced head CT dated 05/04/2022. FINDINGS: There is mild prominence of the ventricular system and cortical sulci, consistent with atrophy. A few scattered periventricular and subcortical white matter hyperintensities are noted on the FLAIR and T2-weighted images which are nonspecific, but often seen in the setting of small vessel ischemic disease. There is no mass effect or midline shift. No intra or extra-axial fluid collections are identified. There are no foci of restricted diffusion. Normal vascular flow voids are noted in the basilar and carotid arteries. There is a small polyp versus mucous retention cyst in the right maxillary sinus. MR/MR head/brain wo con IMPRESSION: No acute intracranial abnormality. Electronically signed by: Kartik Olivo MD 09/09/2024 07:39 AM [facility]
== END 2024-09-06 15:48 | disposition home or self-care (01) ==
LOC: HO.MRI 15:47
PROVIDERS: PCP Nurse Practitioner Family; Visit Provider Psychiatry & Neurology Neurology
DX: R48.2 Apraxia (principal)
CPT/HCPCS: 70551

== ENCOUNTER → 2024-09-06 15:59 | Outpatient (BNV) | payer MEDICARE, OTHER, SELFPAY | PROVIDERS: PCP Nurse Practitioner Family; Visit Provider Radiology Diagnostic Radiology | DX: R48.2 Apraxia (principal) | CPT/HCPCS: 70551 ==

== ENCOUNTER 2024-10-17 12:57 | Outpatient (AMB) | payer MEDICARE, OTHER, SELFPAY ==
--- OUTSIDE RECORDS SUMMARY | 2024-10-17 13:03 | XMS_ITS ---
Author Organization [facility] Address [address] [place] [address] Care Team Providers Care Foundry Worker Apprentice Name Role Phone Caitlyn Swanson NP Primary Care Provider Unavail able CINTHYA ROJO Unavailable [phone] Emergency, Room Unavailable Unavailable HARESH SANTOS Unavailable [phone] REASON FOR VISIT left shoulder fx Medications [...] Encounters Encounter Location Date Provider Diagnosis CCOHY [facility] [address] [place] [address] 07/24/2023 HARESH SANTOS Plan Of Treatment No Information Progress Notes * Jing PAREKHB:[birth year] (73 yo F)Acc No.[id number]:07/24/2023 Progress Notes Patient:?Lucita PAREKH Provider:?DAT Chamberlain :1950???Age:72 Y???Sex:Female D ate:07/24/2023 Address:[address] [place], [place] [phone] Pcp:Caitlyn Swanson NP Subjective: * Chief Complaints: * ???1. Left shoulder fx. * Medical History:?Anxiety, At tention problems, Depression, Osteoprosis. * Surgical History:?appendix r emoved , Right TKR-[place] 11/02/2021. * Family History:?Father: angus nosed with [...] * Electronic signature of JOYCE CLARK on 10/17/2024 at 01:03 PM EST Sign off status: Pending * Provider:?Haresh Santos, DAT Date: ?07/24/2023 Generated for Kirsten rhodes/[employer]/Janell on:?10/17/2024 01:03 PM EST
--- OUTSIDE RECORDS SUMMARY | 2024-10-17 13:03 | XMS_ITS | Encounter Summary ---
Author Organization [facility] Address [address] [place] [address] Care Team Providers Care Account Group Supervisor Name Role Phone Travis Hansen MD Primary Care Provider Sally Kim MD Primary Care Provider Luca Bolanos Primary Care Provider [phone] [facility] Primary Care Provider Christy weiss Encounter Details Date Type Department Care Team Description 05/17/2021 Pt. Non Urgent Medic al Question Adult Medicine [address] [address] Travis Hansen MD Social History Tobacco Use Types Packs/Day Years Used Date Smoking Tobacco: Former Smokeless Tobacco: Never Comments:quit 1993 Alcohol Use Standard Drinks/Week Comments Yes 0 (1 standard drink = 0.6 oz pur e alcohol) social-one drink per month Sex Assigned at Date Recorded Not on file Job Start Date Occupation Industry Not on file Not on file Not on file COVID-19 Exposure Response Date Recorded In the last month, have you been in contact with someone who was confirmed or suspected to have Coronavirus / COVID-19? No / Unsure 04/26/2021 2:38 PM EDT documented as of this encounter Miscellaneous Notes * Telephone Encounter - Travis Hansen MD - 05/17/2021 4:47 PM EDT I never saw this patient, Susan saw this patient but she did not have any blood work done to check her kidneys. Last time she checked kidney function was in April 2019. She should keep the appointment with Susan. Susan: Could you please order CMP on her * Telephone Encounter - Louise Del Castillo - 05/17/2021 3:27 PM EDTFrom: Lucita Parekh To: Gladys Hansen Sent: 05/17/2021 11:49 AM EDT Subject: Prescription renewal / Meloxicam My pharmacist told me he received a note from my prescriber(?) that stated, Pt needed appointment with new PCP for further refills . I contacted the office and was given an appointment with Marlyn. I am out of meloxicam and need refills danae. Is there a problem? I was told I couldn't see Dr. Hansen for 6 weeks, so they made an appointment with Susan and I saw her. I am a tad confused. Please just renew my prescription. Many thanks. Lucita documented in this encounter Plan of Treatment Not on file documented as of this encounter Visit Diagnoses Not on filedocumented in this encounter Care Teams Account Group Supervisor Relationship Specialty Start Date End Date Travis Hansen MD PCP - General Internal Medicine 02/18/21 06/06/21 Sally Stewart MD PCP - General Internal Medicine 06/07/21 01/09/22 Luca Thibodeaux [address] [place] [id number] PCP - General Internal Medicine 01/10/22 04/23/23 [facility], [address] [address] PCP - General Internal Medicine 04/24/23 documented as of this encounter
--- OUTSIDE RECORDS SUMMARY | 2024-10-17 13:03 | XMS_ITS | Patient Health Record ---
Author Organization [facility] Address [address] [place] [address] Care Team Providers Care Marina Porter Name Role Phone Sky KYLE, Caitlyn Primary Care Provider Unavail able CINTHYA ROJO Unavailable [phone] Emergency, Room Unavailable Unavailable Reason For Referral No Information Medications [...] Status Risk Notes Problem Right shoulder pain (1366614534) Right shoulder pain (M25.511) Active confirmed Problem Left shoulder pain (8946115556) Left shoulder pain (M25.512) Active confirmed Problem 917452894 Balance disorder (R26.89) Active confirmed Problem 368089545 Right anterior knee pain (M25.561) Active confirmed Problem 339135077863190 Osteoarthritis o f carpometacarpal (CMC) joint of both thumbs (M18.0) Active confirmed Problem 9205891184085970 Arthritis of carpometacarpal (CMC) joint of both thumbs (M18.0) Active confirmed Plan Of Treatment No Information Insurance Providers Payer Name Payer Address Payer Phone Subscriber Number Group Number Insured Name Patient Relationship to Insured Coverage Start Date Coverage End Date Medicare [address] [place] [id number] Lucita Young Self - patient is the insured [facility] [address] [facility] [place] [address] [id number] Lucita Young Self - patient is the insured Medications Administered Medication Instructions Date of Administration Dosage Notes AspInj Large Joint Bursa UGI 04/28/2023 AspInj Small Joint Bursa 04/18/2023 Celestone 04/18/2023 6 mg Celestone 04/28/2023 3 mg Medical (General) History Medical History History ICD Code anxiety attention problems depression osteoprosis Surgical History Surgery Date(Month/Year) appendix removed Right TKR-[place] 11/02/2021
--- OUTSIDE RECORDS SUMMARY | 2024-10-17 13:04 | XMS_ITS | Encounter Summary ---
Author Organization [facility] Address [address] [place] [address] Care Team Providers Care System Technologist Name Role Phone Community, Pcp Primary Care Provider Unavailabl e Encounter Details Date Type Department Care Team Description 10/30/2023 Edger Technician Report Medical Records [address] [place] [address] Ja Montesinos Social History Tobacco Use Types Packs/Day Years Used Date Smoking Tobacco: Former Smokeless Tobacco: Never Comments:quit 1993 Alcohol Use Standard Drinks/Week Comments Yes 0 (1 standard drink = 0.6 oz pur e alcohol) social-one drink per month Sex Assigned at Date Recorded Not on file Job Start Date Occupation Industry Not on file Not on file Not on file documented as of this encounter Plan of Treatment Not on file documented as of this encounter Visit Diagnoses Not on filedocumented in this encounter Care Teams System Technologist Relationship Specialty Start Date End Date Community, Pcp PCP - General Internal Medicine 04/24/23 documented as of this encounter
--- OUTSIDE RECORDS SUMMARY | 2024-10-17 13:04 | XMS_ITS | Encounter Summary ---
Author Organization [facility] Address [address] [place] [address] Care Team Providers Care Manager Web Name Role Phone Luca Thibodeaux Primary Care Provider [phone] [facility], Pcp Primary Care Provider Unavailabl e Reason for Visit * Reason Onset Date Comments bruises 05/10/2022 Encounter Details Date Type Department Care Team Description 05/10/2022 Pt. Non Urgent Medical Question Adult Medicine [address] [address] Luca Thibodeaux [address] [place] [id number] Social History Tobacco Use Types Packs/Day Years [...] Exposure Response Date Recorded In the last 10 days, have yo u been in contact with someone who was confirmed or suspected to have Coronavirus/COVID-19? No / Unsure 05/13/2022 8:38 AM EDT documented as of this encounter Miscellaneous Notes * Telephone Encounter - Tiffany Stewart M.A. - 05/11/2022 7:21 AM EDTFrom: Lucita Parekh To: Neelam Thiboedaux Sent: 05/10/2022 5:34 PM EDT Subject: Large quarter sized blood mass on hand I have a red to purple colored pool of blood on the top of my right hand. I saw Lani Richey last week about that area as it was swollen not discolored then. Is this blood quarter-sized mass from taking Eliquis. Please advise. Thank you Lucita documented in this encounter Plan of Treatment Not on file documented as of this encounter Visit Diagnoses Not on filedocumented in this encounter Care Teams Manager Web Relationship Specialty Start Date End Date Luca Thibodeaux [address] [place] [address] PCP - General Internal Medicine 01/10/22 04/23/23 [facility], [facility] [place] [address] PCP - General Internal Medicine 04/24/23 documented as of this encounter
--- OUTSIDE RECORDS SUMMARY | 2024-10-17 13:04 | XMS_ITS | Encounter Summary ---
Author Organization [facility] Address [address] [place] [address] Care Team Providers Care Machine Tech Name Role Phone Caitlyn Swanson MIKEY Primary Care Provider [phone] Encounter Details Date Type Department Care Team (Latest Contact Info) Description 09/24/2024 8:20 AM EST Office Visit [facility] [address] [place] [address] Lani Sanz PA-C [address] [place] [id number] Black stool (Primary Dx); Viral gastroenteritis Social History Tobacco Use Types Packs/Day Years Used Date Smoking Tobacco: Former Cigarettes Q uit: 1980 Alcohol Use Standard Drinks/Week Comments Yes 0 (1 standard drink = 0.6 oz pur e alcohol) occasional Social Connections Answer Date Recorded Connectedness 0 05/16/2024 Financial Resource Strain Answer Date R ecorded Financial Resource Strain 0 2021 Stress Answer Date Recorded Stress 0 07/01/2022 Physical Activity Answer Date Recorded Physical Activity 0 07/01/2022 Food Insecurity Answer Date Recorded Food 1 09/19/2024 Transportation Needs Answer Date Record ed Transportation 1 09/19/2024 Housing Stability Answer Date Recorded Housing 0 07/01/2022 Safety and Environment Answer Date Aashish rded Safety 0 07/01/2022 Utilities Answer Date Recorded Utilities 0 07/01/2022 Employment Answer Date Recorded Stress 0 05/16/2024 Comments Unknown Sex and Gender Information Value Date Recorded Sex Assigned at Female 04/05/2023 11:55 AM PDT Legal Sex Female 12:16 PM PDT Gender Identity Female 04/05/2023 11:55 AM PDT Sexual Orientation Straight 04/05/2023 11 :55 AM PDT 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 Not on file Not on file Not on file documented as of this encounter Last Filed Vital Signs Vital Sign Reading Time Taken Comments Blood Pressure 118/71 09/24/2024 8:22 AM EST Pulse 103 09/24/2024 8:22 AM EST Temperature 36.3 ??C (97.4 ??F) 09/24/2024 8:22 AM ES T Respiratory Rate 16 09/24/2024 8:22 AM EST Oxygen Saturation 98% 09/24/2024 8:22 AM EST Inhaled Oxygen Concentration - - Weight 81.6 kg (180 lb) 09/24/2024 8:22 AM EST Height 162.6 cm (5' 4 ) 09/24/2024 8:22 AM EST Body Mass Index 30.9 09/24/2024 8:22 AM EST documented in this encounter Progress Notes * Lani Sanz PA-C - 09/24/2024 8:59 AM EST HPI Lucita is a 73 year old year old female presenting today with complaints of diarrhea. States it began an hour after eating chicken soup for lunch yesterday. Reports the stool was black and fairly nonstop. Last episode was an hour ago, which began to be a more normal color. Had abdominal cramping with it. [place] hot then cold. Now feeling very weak and tired. Is supposed to drive back to [facility] afternoon, then to [place] in 4 days. PE BP 118/71 Pulse (!) 103 Temp 97.4 ??F (36.3 ??C) Resp 16 Ht 5' 4 (1.626 m) Wt 180 lb (81.6 kg) SpO2 98% BMI 30.90 kg/m?? Smoking Status Former BSA 1.92 m?? Pain Sc 0/10 Constitutional Well-nourished, well-developed female in NAD Alert and oriented x4 HEENT Normocephalic, atraumatic Neck FROM, supple Pulmonary No respiratory distress, lungs clear to auscultation bilaterally Cardiac Regular rate and rhythm, no murmurs, rubs, or gallops Abdomen Soft, nondistended. NABS. Diffusely mildly TTP. No palpable masses or HSM. Hemoccult negative. Skin Warm, dry, no rashes or lesions MSK Moves all extremities Neuro Normal gait ASSESSMENT Diarrhea Viral gastroenteritis PLAN Eat and drink small amounts more frequently. Eat foods high in carbohydrates - plain white rice, toast, crackers, mashed potatoes. We will call you with your lab results. Your hemoglobin in the clinic was 15.3, which is normal and does not indicate GI bleeding. However,if you continue to have episodes of black stool, go to the emergency department for evaluation. If you are unable to tolerate any oral intake, return to clinic or go to the nearest emergency department for evaluation. documented in this encounter Miscellaneous Notes * Result Encounter Note - Lani Sanz PA-C - 09/26/2024 3:05 PM EST Please let Lucita know that her lab tests came back showing no significant abnormalities. If she is still having symptoms, she should follow up with her primary care provider or return to urgent care for recheck. Thank you. * Result Encounter Note - Rosalva Reyes MD - 09/25/2024 6:16 PM EST Patient seen for black stools - no evidence of anemia documented in this encounter Plan of Treatment Not on file documented as of this encounter Procedures Procedure Name Priority Date/Time Associated Diagnosis Comments BLOOD COUNT COMPLETE AUTOMATED Routine 09/24/2024 9:44 AM EST Black stool Viral gastroenteritis COMPREHENSIVE METABOLIC PANEL Routine 09/24/2024 9:44 AM EST Black stool Viral gastroenteritis HEMOCUE HEMOGLOBIN (POCT) Routine 09/24/2024 9:14 AM EST Black stool documented in this encounter Results * (ABNORMAL) COMPREHENSIVE METABOLIC PANEL (09/24/2024 9:44 AM EST) GLUCOSE 105(H) 65 - 99 mg/dL 09/24/2024 6:49 PM EST [employer] [facility] UREA NITROGEN (BUN) 15 7 - 25 mg/dL 09/24/2024 6:49 PM EST [employer] [facility] CREATININE (blood) 0.77 0.60 - 1.00 mg/dL 09/24/2024 6:49 PM EST [employer] [facility] EGFR 81 > OR = 60 mL/min/1. 73m2 09/24/2024 6:49 PM EST [employer] [facility] BUN/CREATININE RATIO SEE NOTE: (calc) 09/24/2024 6:49 PM EST [employer] [facility] SODIUM 136 135 - 146 mmol/L 09/24/2024 6:49 PM EST [employer] [facility] POTASSIUM 4.3 3.5 - 5.3 mmol/L 09/24/2024 6:49 PM [employer] [facility] CHLORIDE 101 98 - 110 mmol/L 09/24/2024 6:49 PM EST [employer] [facility] CARBON DIOXIDE 28 20 - 32 mmol/L 09/24/2024 6:49 PM EST [employer] [facility] CALCIUM 10.1 8.6 - 10.4 mg/dL 09/24/2024 6:49 PM [employer] [facility] PROTEIN, TOTAL 6.7 6.1 - 8.1 g/dL 09/24/2024 6:49 PM [employer] [facility] ALBUMIN 4.3 3.6 - 5.1 g/dL 09/24/2024 6:49 PM EST [employer] [facility] GLOBULIN 2.4 1.9 - 3.7 g/dL (calc) 09/24/2024 6:49 PM EST [employer] [facility] ALBUMIN/GLOBULI N RATIO 1.8 1.0 - 2.5 (calc) 09/24/2024 6:49 PM EST [employer] [facility] BILIRUBIN, TOTAL 0.4 0.2 - 1.2 mg/dL 09/24/2024 6:49 PM [employer] [facility] ALKALINE PHOSPHATASE 82 37 - 153 U/L 09/24/2024 6:49 PM [employer] [facility] AST 15 10 - 35 U/L 09/24/2024 6:49 PM EST [employer] ALT 12 6 - 29 U/L 09/24/2024 6:49 PM EST [employer] Blood Blood / Unknown 09/24/2024 9 :44 AM EST 09/24/2024 4:49 PM EST Narrative [employer] CHRIS ECHEVARRIA - 09/24/2024 6:59 PM EST FASTING:YES . ? Fasting reference interval . For someone without known diabetes, a glucose value between 100 and 125 mg/dL is consistent with prediabetes and should be confirmed with a follow-up test. . ?? Not Reported: BUN and Creatinine are within ?? reference range. . Lani Sanz PA-C LAB - BLOOD DRAW Final Resul t [employer] [address] [place] [id number], [employer] [address] [address] * (ABNORMAL) BLOOD COUNT COMPLETE AUTOMATED (09/24/2024 9:44 AM EST) Pathologist [facility] WHITE BLOOD CELL COUNT 8.9 3.8 - 10.8 Thousand/ uL 09/24/2024 8:21 PM EST [facility] RED BLOOD CELL COUNT 4.91 3.80 - 5.10 Million/u L 09/24/2024 8:21 PM EST [facility] HEMOGLOBIN 15.3 11.7 - 15.5 g/dL 09/24/2024 8:21 PM EST [facility] HEMATOCRIT 46.6(H) 35.0 - 45.0 % 09/24/2024 8:21 PM EST [employer] MCV 94.9 80.0 - 100.0 fL 09/24/2024 8:21 PM EST [employer] MCH 31.2 27.0 - 33.0 pg 09/24/2024 8:21 PM EST [employer] MCHC 32.8 32.0 - 36.0 g/dL 09/24/2024 8:21 PM EST [facility] RDW 11.8 11.0 - 15.0 % 09/24/2024 8:21 PM EST [employer] PLATELET COUNT 290 140 - 400 Thousand/ uL 09/24/2024 8:21 PM EST [employer] [facility] MPV 9.8 7.5 - 12.5 fL 09/24/2024 8:21 PM EST [facility] [facility] Blood Blood / Unknown 09/24/2024 9 :44 AM EST 09/24/2024 4:58 PM EST Narrative [facility] [employer] - 09/24/2024 8:30 PM EST FASTING:YES For adults, a slight decrease in the calculated MCHC value (in the range of 30 to 32 g/dL) is most likely not clinically significant; however, it should be interpreted with caution in correlation with other red cell parameters and the patient's clinical condition. us Lani Sanz PA-C LAB - BLOOD DRAW Final Resul t Performing Organization Address City/[facility] Co de Phone Number [employer] [address] [address], [employer] [address] [address] * (ABNORMAL) HEMOCUE HEMOGLOBIN (POCT) (09/24/2024 9:14 AM EST) HEMOGLOBIN 15.3(A) 12 - 15 g/dL [facility] BACK [facility] Blood Blood / Unknown 09/24/2024 9 :14 AM EST us Lani Sanz PA-C LAB - BLOOD DRAW Final Resul t Performing Organization Address City/[facility] Co de Phone Number [facility] BACK OFFICE [address] [place] [address], documented in this encounter Visit Diagnoses Diagnosis Black stool- Primary Nonspecific abnormal finding in stool contents Viral gastroenteritis Intestinal infection due to other organism, not elsewhere classified documented in this encounter Additional Health Concerns Assessment Noted Time PHQ-9 Depression Total Score: 7 08/22/20 24 2:53 PM PST documented as of this encounter Care Teams Machine Tech Relationship Specialty Start Date End Date Caitlyn Swanson CFNP [address] [place] [phone] PCP - General SUPERVISOR [employer] Nurse Practitioner 04/11/23 documented as of this encounter
--- OUTSIDE RECORDS SUMMARY | 2024-10-17 13:04 | XMS_ITS | Encounter Summary ---
Author Organization [facility] Address [address] [place] [address] Care Team Providers Care Hotel Maintenance Worker Name Role Phone Travis Hansen MD Primary Care Provider Sally Kim MD Primary Care Provider Luca Bolanos Primary Care Provider [phone] [facility], Pcp Primary Care Provider [facility] isela Encounter Details Date Type Department Care Team Description 05/17/2021 Pt. Non Urgent Medical Question Adult Medicine [address] [address] Susan Hi PA-C [address] [place] [address] Social History Tobacco Use Types Packs/Day Years [...] encounter Miscellaneous Notes * Telephone Encounter - Louise Del Castillo - 05/17/2021 3:33 PM EDTFrom: Lucita Iglesia To: Toy Hi Sent: 05/17/2021 12:01 PM EDT Subject: Mammogram needed? Mayco Davis. I believe I need to have a mammogram. Is this correct? If so I'd to like schedule one before Dr. Egan's order expires. Thanks. Lucita documented in this encounter Plan of Treatment Not on file documented as of this encounter Visit Diagnoses Not on filedocumented in this encounter Care Teams Hotel Maintenance Worker Relationship Specialty Start Date End Date Travis Hansen MD PCP - General Internal Medicine 02/18/21 06/06/21 Sally Stewart MD PCP - General Internal Medicine 06/07/21 01/09/22 Luca Thibodeaux [address] [place] [address] PCP - General Internal Medicine 01/10/22 04/23/23 [facility], Pcp [address] [place] [address] PCP - General Internal Medicine 04/24/23 documented as of this encounter
--- OUTSIDE RECORDS SUMMARY | 2024-10-17 13:04 | XMS_ITS | Encounter Summary ---
Author Organization [facility] Address [address] [place] [address] Care Team Providers Care Siding Applicator Name Role Phone Luca Thibodeaux Primary Care Provider [phone] [facility], Pcp Primary Care Provider [facility] Encounter Details Date Type Department Care Team Description 05/16/2022 Pt. Non Urgent Medical Question [facility] [address] [facility] [address] [place] [address] Lani Richey APRN Social History Tobacco Use Types Packs/Day Years [...] AM EDT documented as of this encounter Plan of Treatment Not on file documented as of this encounter Visit Diagnoses Not on filedocumented in this encounter Care Teams Siding Applicator Relationship Specialty Start Date End Date Luca Thibodeaux [address] [place] [address] PCP - General Internal Medicine 01/10/22 04/23/23 [facility], Pcp [address] [place] [address] PCP - General Internal Medicine 04/24/23 documented as of this encounter
--- OUTSIDE RECORDS SUMMARY | 2024-10-17 13:04 | XMS_ITS ---
Author Organization [facility] Address [address] [place] [address] Care Team Providers Care Group Therapist Name Role Phone Caitlyn Swanson NP Primary Care Provider Unavail able CINTHYA ROJO Unavailable [phone] Emergency, Room Unavailable Unavailable X CT SKAGGS [...] Encounters Encounter Location Date Provider Diagnosis CCOHY [facility] [address] [place] [phone] 09/14/2023 CT SKAGGS Plan Of Treatment No Information Progress Notes * Lucita PAREKHDOB:[birth year] (73 yo F)Acc No.[id number]:09/14/2023 Patient:Lucita EARL Provider:?CT SKAGGS PA-C :1950???Age:72 Y???Sex:Female D ate:09/14/2023 Address:[address] [place], [place] [phone] Pcp:Caitlyn Swanson NP Subjective: * Chief Complaints: * ???1. Left Knee Pain. * Medical History:?Anxiety, At tention problems, Depression, Osteoprosis. * Surgical History:?appendix r emoved , Right TKR-[place] 11/02/2021. * Family History:?Father: diag nosed with [...] Extended Release 24 Hour Oral , Taking Amphetamine-Dextroamphetamine 10 MG Tablet Oral Objective: * Vitals:? Assessment: Plan: * Treatment: * * Electronic signature of ANGIE SKAGGS PA-C on 10/17/2024 at 01:03 PM EST Sign off status: Pending * Provider:?CT SKAGGS PA-C Date :?09/14/2023 Generated for Kirsten rhodes/[employer]/Janell on:?10/17/2024 01:03 PM EST
--- OUTSIDE RECORDS SUMMARY | 2024-10-17 13:04 | XMS_ITS | Encounter Summary ---
Author Organization [facility] Address [address] [place] [address] Care Team Providers Care Policy Change Clerk Name Role Phone Luca Thibodeaux Primary Care Provider [phone] [facility], Pcp Primary Care Provider [facility] Encounter Details Date Type Department Care Team Description 07/11/2022 Pt. Non Urgent Medical Question Adult Medicine [address] [address] Ryan Hewitt, CRY[place]AL [address] [place] [address] Social History Tobacco Use Types Packs/Day Years [...] on file documented as of this encounter Miscellaneous Notes * Telephone Encounter - Tiffany Stewart M.A. - 07/12/2022 7:38 AM ESTFrom: Lucita Parekh To: Jakub Hewitt Sent: 07/11/2022 8:09 PM EST Subject: None None documented in this encounter Plan of Treatment Not on file documented as of this encounter Visit Diagnoses Not on filedocumented in this encounter Care Teams Policy Change Clerk Relationship Specialty Start Date End Date Luca Thibodeaux [address] [place] [address] PCP - General Internal Medicine 01/10/22 04/23/23 [facility], [place] [address] [place] [address] PCP - General Internal Medicine 04/24/23 documented as of this encounter
--- OUTSIDE RECORDS SUMMARY | 2024-10-17 13:04 | XMS_ITS | Encounter Summary ---
Author Organization [facility] Address [address] [place] [address] Care Team Providers Care Medical Equipment Sales Name Role Phone Ena Egan MD Primary Care Provider Travis Rg MD Primary Care Provider Sally Kim MD Primary Care Provider Luca Bolanos Primary Care Provider [phone] [facility], Pcp Primary Care Provider Unavailabl e Reason for Visit * Reason Onset Date Comments Special Procedure 09/20/2019 Encounter Details Date Type Department Care Team Description 09/20/2019 Telephone Gastroenterology - [address] [place] [address] Ena Egan MD Special Procedure Social History Tobacco Use Types Packs/Day Years [...] encounter Miscellaneous Notes * Telephone Encounter - Ena Egan MD - 09/23/2019 7:59 AM EST Noted She had a positive FIT test in August so was referred for colonoscopy. She was aware of the results (per tel call opened 08/29). Will send her a registered letter recommending she reconsider. * Telephone Encounter - Lary Sharp - 09/20/2019 2:[address] Egan, this patient is refusing her colonoscopy and will be taken off the referrals list, thank you documented in this encounter Plan of Treatment Not on file documented as of this encounter Visit Diagnoses Not on filedocumented in this encounter Care Teams Medical Equipment Sales Relationship Specialty Start Date End Date Ena Egan MD PCP - General Internal Medicine 08/03/11 02/17/21 Travis Hansen MD PCP - General Internal Medicine 02/18/21 06/06/21 Sally Stewart MD PCP - General Internal Medicine 06/07/21 01/09/22 Luca Thibodeaux [address] [place] [address] PCP - General Internal Medicine 01/10/22 04/23/23 [facility], [address] [address] PCP - General Internal Medicine 04/24/23 documented as of this encounter
--- OUTSIDE RECORDS SUMMARY | 2024-10-17 13:04 | XMS_ITS | Encounter Summary ---
Author Organization [facility] Address [address] [place] [address] Care Team Providers Care Brine Tank Operator Name Role Phone Luca Thibodeaux Primary Care Provider [phone] [facility], Pcp Primary Care Provider [facility] Encounter Details Date Type Department Care Team Description 10/31/2022 Vehicle Insurance Agent Report Medical Records [address] [place] [address] Rabia Roman [address] [facility] [address] [place] [address] Social History Tobacco Use Types Packs/Day Years [...] Recorded In the last 10 days, have amanda u been in contact with someone who was confirmed or suspected to have Coronavirus/COVID-19? No / Unsure 11/02/2022 3:40 PM EST documented as of this encounter Plan of Treatment Not on file documented as of this encounter Visit Diagnoses Not on filedocumented in this encounter Care Teams Brine Tank Operator Relationship Specialty Start Date End Date Luca Thibodeaux [address] [place] [address] PCP - General Internal Medicine 01/10/22 04/23/23 [facility], Pcp [address] [place] [address] PCP - General Internal Medicine 04/24/23 documented as of this encounter
--- OUTSIDE RECORDS SUMMARY | 2024-10-17 13:04 | XMS_ITS | Encounter Summary ---
Author Organization [facility] Address [address] [place] [address] Care Team Providers Care Employment Services Director Name Role Phone Ena Egan MD Primary Care Provider Travis Rg MD Primary Care Provider Unavail Sally Jasmine MD Primary Care Provider Luca Bolanos Primary Care Provider [phone] [facility], Pcp Primary Care Provider Christy weiss Encounter Details Date Type Department Care Team Description 02/07/2020 SCAN Medical Records [address] [place] [address] Abstract, Provider Social History Tobacco Use Types Packs/Day Years [...] on filedocumented in this encounter Care Teams Employment Services Director Relationship Specialty Start Date End Date Ena Egan MD PCP - General Internal Medicine 08/03/11 02/17/21 Travis Hansen MD PCP - General Internal Medicine 02/18/21 06/06/21 Sally Stewart MD PCP - General Internal Medicine 06/07/21 01/09/22 Luca Thibodeaux [address] [place] [address] PCP - General Internal Medicine 01/10/22 04/23/23 [facility], Pcp [address] [place] [address] PCP - General Internal Medicine 04/24/23 documented as of this encounter
--- OUTSIDE RECORDS SUMMARY | 2024-10-17 13:04 | XMS_ITS | Encounter Summary ---
Author Organization [facility] Address [address] [place] [address] Care Team Providers Care Mathematician Name Role Phone Ena Egan MD Primary Care Provider Travis Rg MD Primary Care Provider Unavail Sally Jasmine MD Primary Care Provider Luca Bolanos Primary Care Provider [phone] [facility], Pcp Primary Care Provider Christy weiss Encounter Details Date Type Department Care Team Description 06/25/2019 Release of Information Medical Records [address] [place] [id number] Abstract, Provider Social History Tobacco Use Types [...] on filedocumented in this encounter Care Teams Mathematician Relationship Specialty Start Date End Date Ena Egan MD PCP - General Internal Medicine 08/03/11 02/17/21 Travis Hansen MD PCP - General Internal Medicine 02/18/21 06/06/21 Sally Stewart MD PCP - General Internal Medicine 06/07/21 01/09/22 Luca Thibodeaux [address] [place] [address] PCP - General Internal Medicine 01/10/22 04/23/23 [facility], Pcp [address] [place] [address] PCP - General Internal Medicine 04/24/23 documented as of this encounter
--- OUTSIDE RECORDS SUMMARY | 2024-10-17 13:04 | XMS_ITS | Encounter Summary ---
Author Organization [facility] Address [address] [place] [address] Care Team Providers Care Labor Arbitrator Name Role Phone Ena Egan MD Primary Care Provider Travis Rg MD Primary Care Provider UnavailSally Hutton MD Primary Care Provider Luca Bolanos Primary Care Provider [phone] [facility], [facility] Primary Care Provider Unavailabl e Reason for Visit * Reason Comments E-prescribe Rx Request Encounter Details Date Type Department Care Team Description 12/21/2020 Refill Adult Medicine [address] [address] Ena Egan MD E-prescribe Rx Request Social History Tobacco Use Types Packs/Day Years [...] encounter Miscellaneous Notes * Telephone Encounter - Aurea Vu M.A. - 12/21/2020 3:26 PM EDT [facility] 10/16/2020 (sick visit) F/U appt 01/04/2021 * Telephone Encounter - Poppy Che - 12/21/2020 9:49 AM EDT Patient would like script to be: E-PRESCRIBED/FAXED TO PHARMACY WHEN WAS THE PATIENT'S LAST APPOINTMENT IN ADULT MEDICINE? 10/16/20 WHEN WAS THE LAST TIME THE PATIENT SAW THEIR PCP? 06/15/20 Does patient have an upcoming appointment? Yes 01/04/21 (THE MEDICATION REQUESTED IS ON THE MED LIST ABOVE) All of the medications requested were on the CURRENT MEDS list Did you check the Pharmacy information above?: YES Patient wants: 90 -day supply Is this a mail order prescription request ? NO If the refill is from a FAXED refill request what is the RX # listed on the fax? N/A Patients current insurance carrier is: [place] / Product Type: MEDICARE [id number] documented in this encounter Plan of Treatment Not on file documented as of this encounter Visit Diagnoses Not on filedocumented in this encounter Care Teams Labor Arbitrator Relationship Specialty Start Date End Date Ena Egan MD PCP - General Internal Medicine 08/03/11 02/17/21 Travis Hansen MD PCP - General Internal Medicine 02/18/21 06/06/21 Sally Stewart MD PCP - General Internal Medicine 06/07/21 01/09/22 Luca Thibodeaux [address] [place] [address] PCP - General Internal Medicine 01/10/22 04/23/23 [facility], Pcp [address] [place] [address] PCP - General Internal Medicine 04/24/23 documented as of this encounter
--- OUTSIDE RECORDS SUMMARY | 2024-10-17 13:04 | XMS_ITS | Encounter Summary ---
Author Organization [facility] Address [address] [place] [address] Care Team Providers Care Sheet Rock Hanger Name Role Phone Ena Egan MD Primary Care Provider Travis Rg MD Primary Care Provider Unavail Sally Jasmine MD Primary Care Provider Luca Bolanos Primary Care Provider [phone] [facility] Pcp Primary Care Provider Christy weiss Encounter Details Date Type Department Care Team Description 08/06/2017 Hospital Medical Records [address] [place] [address] Social History Tobacco Use Types Packs/Day Years [...] on filedocumented in this encounter Care Teams Sheet Rock Hanger Relationship Specialty Start Date End Date Ena Egan MD PCP - General Internal Medicine 08/03/11 02/17/21 Travis Hansen MD PCP - General Internal Medicine 02/18/21 06/06/21 Sally Stewart MD PCP - General Internal Medicine 06/07/21 01/09/22 Luca Thibodeaux [address] [place] [id number] PCP - General Internal Medicine 01/10/22 04/23/23 [facility], Pcp [address] [place] [id number] PCP - General Internal Medicine 04/24/23 documented as of this encounter
--- OUTSIDE RECORDS SUMMARY | 2024-10-17 13:04 | XMS_ITS | Encounter Summary ---
Author Organization [facility] Address [address] [place] [address] Care Team Providers Care Straightening Press Operator Helper Name Role Phone Ena Egan MD Primary Care Provider Travis Rg MD Primary Care Provider Unavail Sally Jasmine MD Primary Care Provider Luca Bolanos Primary Care Provider [phone] [facility], Pcp Primary Care Provider Christy Encounter Details Date Type Department Care Team Description 09/07/2012 Hospital Medical Records [address] [place] [address] Shabnam Villegas, [facility] [address] [place] [address] Social History Tobacco Use Types Packs/Day Years [...] on filedocumented in this encounter Care Teams Straightening Press Operator Helper Relationship Specialty Start Date End Date Ena Egan MD PCP - General Internal Medicine 08/03/11 02/17/21 Travis Hansen MD PCP - General Internal Medicine 02/18/21 06/06/21 Sally Stewart MD PCP - General Internal Medicine 06/07/21 01/09/22 Luca Thibodeaux [address] [place] [address] PCP - General Internal Medicine 01/10/22 04/23/23 Wolf Schaffer [address] [place] [address] PCP - General Internal Medicine 04/24/23 documented as of this encounter
--- OUTSIDE RECORDS SUMMARY | 2024-10-17 13:04 | XMS_ITS | Encounter Summary ---
Author Organization [facility] Address [address] [place] [address] Care Team Providers Care Pressed Or Blown Glass Worker Name Role Phone Ena Egan MD Primary Care Provider Travis Rg MD Primary Care Provider Sally Kim MD Primary Care Provider Luca Bolanos Primary Care Provider [phone] [facility], [facility], Pcp Primary Care Provider Unavailabl e Reason for Visit * Reason Onset Date Comments hospital follow up 08/14/2017 Encounter Details Date Type Department Care Team Description 08/14/2017 Telephone Adult [address] [address] Ena Egan MD hospital follow up Social History Tobacco Use Types Packs/Day Years [...] encounter Miscellaneous Notes * Telephone Encounter - Jenniffer Peralta R.N. - 08/15/2017 9:56 AM EST Called pt and scheduled follow up for 08/16/17 at 1:30pm with Dr. Mar Please get notes from [facility] * Telephone Encounter - Jenniffer Peralta R.N. - 08/14/2017 10:11 AM EST Returned pt's call and left message to call nurse back. * Telephone Encounter - Catrachita Rascon - 08/14/2017 9:51 AM EST Hospital follow up appointment needed Hospital patient was treated at: [facility] Was this only an ER visit or was the patient admitted to the hospital? Admitted to hospital Date of visit if ER visit only: N/A If patient was admitted what was the date of discharge? 08/11/17 Reason/diagnosis for visit or stay: DEPRESSION When was the patient told to follow up? LIBBY Was visit or stay related to an injury? NO If yes, what was the date of injury (DOI)? N/A If yes, was the injury due to N/A documented in this encounter Plan of Treatment Not on file documented as of this encounter Visit Diagnoses Not on filedocumented in this encounter Care Teams Pressed Or Blown Glass Worker Relationship Specialty Start Date End Date Ena Egan MD PCP - General Internal Medicine 08/03/11 02/17/21 Travis Hansen MD PCP - General Internal Medicine 02/18/21 06/06/21 Sally Stewart MD PCP - General Internal Medicine 06/07/21 01/09/22 Luca Thibodeaux [address] [place] [id number] PCP - General Internal Medicine 01/10/22 04/23/23 Wolf Schaffer [address] [place] [id number] PCP - General Internal Medicine 04/24/23 documented as of this encounter
--- OUTSIDE RECORDS SUMMARY | 2024-10-17 13:04 | XMS_ITS | Encounter Summary ---
Author Organization [facility] Address [address] [place] [address] Care Team Providers Care Supervisor Metal Hanging Name Role Phone Ena Egan MD Primary Care Provider Travis Rg MD Primary Care Provider Sally Kim MD Primary Care Provider Luca Bolanos Primary Care Provider [phone] [facility], Pcp Primary Care Provider Unavaildawn weiss Encounter Details Date Type Department Care Team Description 10/31/2011 Pt. Non Urgent Medic al Question Gastroenterology [address] [address] Ayan Welsh MD Social History Tobacco Use Types Packs/Day Years Used Date Smoking Tobacco: Former Smokeless Tobacco: Never Comments:quit 1993 Alcohol Use Standard Drinks/Week Comments Yes 0 (1 standard drink = 0.6 oz pur e alcohol) social Sex Assigned at Date Recorded Not on file Job Start Date Occupation Industry Not on file Not on file Not on file documented as of this encounter Progress Notes * Domenica Fischer M.A. - 10/31/2011 8:36 AM ESTFrom: LUCITA HERNADEZ To: Ayan Welsh MD Sent: MonOct 31, 2011 8:15 AM Subject: 10/31/2011 9:30AM colonoscopy cancellation Good morning; As directed, I started drinking the Kenneth Monday 3PM. By 5PM I became very qeasey and began vomiting the solution I had drunk so far...Hence I stopped drinking it and will not be coming in for this appointment. Lucita documented in this encounter Plan of Treatment Not on file documented as of this encounter Visit Diagnoses Not on filedocumented in this encounter Care Teams Supervisor Metal Hanging Relationship Specialty Start Date End Date Ena Egan MD PCP - General Internal Medicine 08/03/11 02/17/21 Travis Hansen MD PCP - General Internal Medicine 02/18/21 06/06/21 Sally Stewart MD PCP - General Internal Medicine 06/07/21 01/09/22 Luca Thibodeaux [address] [place] [id number] PCP - General Internal Medicine 01/10/22 04/23/23 [facility], [facility] [place] [address] PCP - General Internal Medicine 04/24/23 documented as of this encounter
--- OUTSIDE RECORDS SUMMARY | 2024-10-17 13:04 | XMS_ITS | Encounter Summary ---
Author Organization [facility] Address [address] [place] [address] Care Team Providers Care Restaurant Management Internship Name Role Phone Ena Egan MD Primary Care Provider Travis gR MD Primary Care Provider Unavail Sally Jasmine MD Primary Care Provider Luca Bolanos Primary Care Provider [phone] [facility] Pcp Primary Care Provider Christy weiss Encounter Details Date Type Department Care Team Description 01/03/2018 Transfer Agent Report Medical Records [address] [place] [id number] Social History Tobacco Use Types Packs/Day Years [...] on filedocumented in this encounter Care Teams Restaurant Management Internship Relationship Specialty Start Date End Date Ena Egan MD PCP - General Internal Medicine 08/03/11 02/17/21 Travis Hansen MD PCP - General Internal Medicine 02/18/21 06/06/21 Sally Stewart MD PCP - General Internal Medicine 06/07/21 01/09/22 Luca Thibodeaux [address] [place] [id number] PCP - General Internal Medicine 01/10/22 04/23/23 [facility], Pcp [address] [place] [address] PCP - General Internal Medicine 04/24/23 documented as of this encounter
--- OUTSIDE RECORDS SUMMARY | 2024-10-17 13:04 | XMS_ITS | Encounter Summary ---
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 Report Medical Records [address] [place] [address] Brandt Correia MD Social History Tobacco Use Types Packs/Day [...] on filedocumented in this encounter Care Teams Chaplain Relationship Specialty Start Date End Date Ena Egan MD PCP - General Internal Medicine 08/03/11 02/17/21 Travis Hansen MD PCP - General Internal Medicine 02/18/21 06/06/21 Sally Stewart MD PCP - General Internal Medicine 06/07/21 01/09/22 Luca Thibodeaux [address] [place] [id number] PCP - General Internal Medicine 01/10/22 04/23/23 [facility], Pcp [address] [place] [phone] PCP - General Internal Medicine 04/24/23 documented as of this encounter
--- OUTSIDE RECORDS SUMMARY | 2024-10-17 13:04 | XMS_ITS | Encounter Summary ---
Author Organization [facility] Address [address] [place] [address] Care Team Providers Care Training And Documentation Specialist Name Role Phone Ena Egan MD Primary Care Provider Travis Rg MD Primary Care Provider Unavail Sally Jasmine MD Primary Care Provider Luca Bolanos Primary Care Provider [phone] [facility] Pcp Primary Care Provider Unavaildawn weiss Encounter Details Date Type Department Care Team Description 05/30/2019 Ad Terminal Makeup Operator Report Medical Records [address] [place] [id number] Sam Malik MD Social History Tobacco Use Types Packs/Day [...] on filedocumented in this encounter Care Teams Training And Documentation Specialist Relationship Specialty Start Date End Date Ena Egan MD PCP - General Internal Medicine 08/03/11 02/17/21 Travis Hansen MD PCP - General Internal Medicine 02/18/21 06/06/21 Sally Stewart MD PCP - General Internal Medicine 06/07/21 01/09/22 Luca Thibodeaux [address] [place] [address] PCP - General Internal Medicine 01/10/22 04/23/23 [facility], Pcp [address] [place] [address] PCP - General Internal Medicine 04/24/23 documented as of this encounter
--- OUTSIDE RECORDS SUMMARY | 2024-10-17 13:04 | XMS_ITS | Clinical Summary ---
Author Organization [facility] Address [address] [place] [address] Care Team Providers Care Underwriting Support Specialist Name Role Phone Caitlyn Swanson MIKEY Primary Care Provider [phone] Source Comments PLEASE NOTE, if this patient is a minor, it may be UNLAWFUL to discuss sensitive information that is contained in these records (such as FAMILY PLANNING, MENTAL HEALTH or SUBSTANCE ABUSE) with the minor patient's parent or other person without the patient's specific authorization.[facility] Allergies No known active allergies Medications acetaminophen (TYLENOL ARTHRITIS ORAL) Take 1 Tablet by mouth 3 (three) times daily Active pantoprazole (PROTONIX) 40 mg EC tabletIndications: Gastroesophageal reflux disease without esophagitis Take 1 Tablet by mouth daily. 90 Tablet 3 06/24/20 24 Active dextroamphetamine- amphetamine (ADDERALL XR) 10 mg 24 hr capsuleIndications :Attention deficit hyperactivity disorder (ADHD), predominantly inattentive type TAKE 1 CAPSULE BY MOUTH ONCE A DAY IN THE MORNING 90 Capsule 08/03/20 24 Active melatonin 3 mg tabletIndications: Adjustment insomnia Take 1 Tablet by mouth nightly at bedtime as needed for sleep 90 Tablet 4 08/23/20 24 Active solifenacin (VESICARE) 10 mg tablet TAKE 1 TABLET BY MOUTH ONCE A DAY 90 Tablet 4 08/23/20 24 Active fluconazole (DIFLUCAN) 150 mg tabletIndications: Monial infection of vagina Take 1 Tablet by mouth every 3 (three) days 3 Tablet 09/17/19 25 Active venlafaxine XR (EFFEXOR XR) 150 mg 24 hr capsuleIndications :Major depression, recurrent, chronic (HCC-CMS) Take 1 Capsule by mouth once daily with breakfast 90 Capsule 1 09/17/19 25 Active prazosin (MINIPRESS) 5 mg capsuleIndications :Major depression, recurrent, chronic (HCC-CMS) Take 1 Capsule by mouth nightly at bedtime 90 Capsule 3 09/18/19 25 Active atorvastatin (LIPITOR) 20 mg tabletIndications: Mixed hyperlipidemia Take 1 Tablet by mouth once daily 90 Tablet 4 09/18/19 25 Active gabapentin (NEURONTIN) 300 mg capsuleIndications :Anxiety,Spinal stenosis of lumbar region, unspecified whether neurogenic claudication present Take 1 Capsule by mouth nightly at bedtime 90 Capsule 4 09/18/19 25 Active metoprolol succinate XL (TOPROL-XL) 50 mg 24 hr tabletIndications: Chronic atrial fibrillation (HCC-CMS) Take 1 Tablet by mouth nightly at bedtime 90 Tablet 4 09/18/19 25 Active apixaban (ELIQUIS) 5 mg tabIndications:Chr onic atrial fibrillation (HCC-CMS) Take 1 Tablet by mouth 2 (two) times a day 180 Tablet 4 09/19/19 25 Active clonazePAM (KLONOPIN) 1 mg tabletIndications: Major depression, recurrent, chronic (HCC-CMS) Take 1 Tablet by mouth nightly at bedtime 09/19/19 25 Active busPIRone (BUSPAR) 7.5 mg tabletIndications: Situational anxiety Take 1 Tablet by mouth 3 (three) times daily 90 Tablet 1 10/05/19 25 Active apixaban (ELIQUIS) 5 mg tab Take 1 Tablet by mouth 2 (two) times a day 180 Tablet 4 06/08/20 23 025 Discontin ued(Reord er (E-Cancel Not Sent)) atorvastatin (LIPITOR) 20 mg tablet Take 1 Tablet by mouth once daily 90 Tablet 4 10/23/19 24 025 Discontin ued(Reord er (E-Cancel Not Sent)) metoprolol succinate XL (TOPROL-XL) 50 mg 24 hr tablet Take 1 Tablet by mouth nightly at bedtime 90 Tablet 3 01/30/20 24 025 Discontin ued(Reord er (E-Cancel Not Sent)) prazosin (MINIPRESS) 5 mg capsule Take 1 Capsule by mouth nightly at bedtime 90 Capsule 3 01/30/20 24 025 Discontin ued(Reord er (E-Cancel Not Sent)) gabapentin (NEURONTIN) 300 mg capsuleIndications :Spinal stenosis of lumbar region, unspecified whether neurogenic claudication present Take 1 Capsule by mouth nightly at bedtime 90 Capsule 3 06/10/20 24 025 Discontin ued(Reord er (E-Cancel Not Sent)) clonazePAM (KLONOPIN) 2 mg tabletIndications: Major depression, recurrent, chronic ([facility]-CMS) Take 1 Tablet by mouth 1 (one) time daily if needed for anxiety as directed by prescriber 30 Tablet 09/17/19 25 025 Discontin ued(Thera py completed /Not needed) Active Problems Problem Noted Date Diagnosed Date 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 08/30/2022 Gastroesophageal reflux disease without esophagi tis 08/22/2022 Overview (06/11/2024): Pt unsure why on Protonix and no memory of GERD will taper off Protonix q 2 wk skip another pill unto off If GERD sxs increase go back to higher dose Chronic atrial fibrillation (HCC-CMS) 08/22/2022 Fractures 02/09/2022 Overview (07/01/2022): Per ot: Fractures of ribs 3 and 4 (left side), Fractures of both wrists and left thumb Osteopenia 06/04/2021 Renal cyst, right 04/25/2019 History of basal cell carcinoma 06/13/2018 Overview (06/11/2024): BCC 06/21 left arm (superficial) Sees annually DR Jaguar Cardona Ma 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 Hydroxyzine could also help during the day for anxiety and frequency could be increased to QID PRN if needed - Clonazepam 1 mg QHS - patient advised to cut down and only take it PRN instead of nightly given risks of cognitive decline and increased risk of falls. If patient interested in stopping it, would recommend a slow taper to avoid withdrawal symptoms 09/19/2024 Unable to get atarax as refused by Health insurance -switched to Buspirone 7.5 mg 3 x day Pt not to increase until next apt - Klonopin 1.0 mg at night no other changes Lumbar spinal stenosis 10/22/2017 Overview (07/01/2022): MRI 10/2017 Abnormal gait 10/03/2017 Overview (07/01/2022): Referred to PT for gait disturbances and multiple falls. CT head normal. Normal B12 and lithium levels. MRI lumbar spine with mild stenosis and arthritis. Referred to physiatry for consideration of nerve conduction studies. 09/2017 but they exhausted attempts for her to follow up. 11/28/17 - pt reports gait improved after d/cing one of the depression meds (Lamictal?) Vitamin D deficiency 03/10/2016 Hyperlipidemia 05/05/2006 Overview (06/11/2024): Over do for labs Generalized osteoarthrosis of hand 03/17/2006 Overview (07/01/2022): IMO update Resolved Problems Problem Noted Date Diagnosed Date Resolved Date Major depression, recurrent, chronic ([facility]) 12/23/2013 06/08/2023 Overview (07/01/2022): [facility] 09/2016, 05/2017, [facility] Admission 08/2017 - intentional overdose hx x2 , ECT therapy 05/2017, outside psychiatric care Dr Barry Encounters Date Type Department Care Team Description 09/24/2024 8:20 AM EST Office Visit [facility] [address] [place] [phone] Lani Sanz PA-C Black stool (Primary Dx); Viral gastroenteritis 09/19/2024 2:40 PM EST Office Visit [facility] [address] [place] [phone] Caitlyn Swanson CFNP Chronic atrial fibrillation (HCC-CMS) (Primary Dx); Major depression, recurrent, chronic (HCC-CMS); Severe major depression without psychotic features (HCC-CMS) 08/22/2024 3:00 PM EST Office Visit [facility] [address] [place] [address] Caitlyn Swanson CFNP Major depression, recurrent, chronic (HCC-CMS) (Primary Dx); Severe major depression without psychotic features (HCC-CMS) 08/07/2024 11:00 AM EST / Visits [address] [phone] Ghada Rothman MD 07/24/2024 11:00 AM EST Telemedicine Visit [facility] [address] [place] [address] Caitlyn Swanson CFNP Situational anxiety (Primary Dx); Encounter for screening mammogram for malignant neoplasm of breast from Last 3 Months Immunizations Name Administration Dates Next Due Flu, Adjuvant, 65y+ (Fluad) 11/05/2020 Flu, Cell Culture based, Mul ti Dose, 6m+, Flucelvax 08/16/2017 Flu, High Dose, 65y+, Fluzon e High Dose 06/20/2023 Influenza (FLUZONE), high-do se, trivalent, PF 06/11/2024,08/22/2022,07/06/2021,05/11 PFIZER COVID VACCINE, PURPLE CAP, 12+ 05/30/2021 PNEUMOCOCCAL CONJUGATE PCV 13 02/10/2018 PNEUMOCOCCAL POLYSACCHARIDE PPV23 08/16/2017 Pfizer COVID-19 (Comirnaty), Mrna, Lnp-s, Pf, Hitesh-sucrose, 30 Mcg/0.3 Ml, 12yr+ 06/11/2024,06/20/2023 TDAP 04/21/2022,02/25/2003 Td (adult) unspecified 02/25/2003 Td(adult),2 Lf tetanus toxoid,preservative free 08/16/2017 ZOSTER VACCINE, RECOMBINANT (SHINGRIX) ,07/10/2021 Family History Medical History Relation Name Comments Heart Problems Father d age 73 chf Mother d age 83 No Known Problems Sister sibling ag e 75 Relation Name Status Comments Father Mother Sister Alive Social History Tobacco Use Types Packs/Day Years Used Date Smoking Tobacco: Former Cigarettes Q uit: 1980 Tobacco Cessation:Counseling Given: Not Answered Alcohol Use Standard Drinks/Week Comments Yes 0 [...] file Not on file Not on file Last Filed Vital Signs Vital Sign Reading [...] Mass Index 30.9 09/24/2024 8:22 AM EST Plan of Treatment Health Maintenance Due Date Last Done Comments LTBI Screening (#1) 1950 Medicare Annual Wellness Visit 1968 Imm-Hepatitis A (1 of 2 - Ri sk 2-dose series) 1969 CT Colonography 11/30/1995 Colonoscopy 11/30/1995 Colorectal Cancer Screening 11/30/1995 FIT/gFOBT 11/30/1995 Fecal DNA 11/30/1995 Flexible Sigmoidoscopy 11/30/1995 Bone Density Screening 11/30/2015 Falls Prevention 08/03/2024 08/03/2023 Alcohol and Drug Screen 09/04/2024 08/03/2023 Depression Monitoring 11/20/2024 08/22/2024 , 06/11/2024, 05/09/2024, Additional history exists Tobacco Screening 06/11/2025 06/11/2024 Lipid Screening 09/19/2025 09/19/2024, 09/15/2022 Hypertension Screening (#1) 09/24/2025 Breast Cancer Screening (Mammogram) 08/08/2026 08/08/2024 Imm-DTaP/Tdap/Td (5 - Td or Tdap) 04/21/2032 04/21/2022, 08/16/2017, 02/25/2003, Additional history exists Imm-Pneumococcal 65+ Completed 02/10/2018, 08/16/20 17 Imm-Zoster, Recombinant Completed 05/03/2022, 07/10 Hepatitis C Screening Completed 06/08/2023 [id number] Completed 06/11/2024, 06/04, 05/30/2021, Additional history exists Imm-Influenza Completed 06/11/2024, 06/04, 08/22/2022, Additional history exists Procedures Procedure Name Priority Date/Time Associated Diagnosis Comments COMPREHENSIVE METABOLIC PANEL Routine 09/24/2024 9:44 AM EST Black stool Viral gastroenteritis BLOOD COUNT COMPLETE AUTOMATED Routine 09/24/2024 9:44 AM EST Black stool Viral gastroenteritis HEMOCUE HEMOGLOBIN (POCT) Routine 09/24/2024 9:14 AM EST Black stool VITAMIN B12 & FOLATE Routine 09/19/2024 2:00 PM EST Severe major depression without psychotic features (HCC-CMS) LIPID PANEL Routine 09/19/2024 2:00 PM EST Mixed hyperlipidemia COMPREHENSIVE METABOLIC PANEL Routine 09/19/2024 2:00 PM EST Mixed hyperlipidemia Severe major depression without psychotic features (HCC-CMS) BLOOD COUNT COMPLETE AUTO&AUTO DIFRNTL WBC Routine 09/19/2024 2:00 PM EST Severe major depression without psychotic features (HCC-CMS) Gastroesophageal reflux disease without esophagitis ACUTE HEPATITIS PANEL W/RFLX Routine 06/08/2023 1:29 PM EDT Screening for venereal disease from Last 3 Months or Most Recently Relevant to Health Maintenance Results * (ABNORMAL) BLOOD COUNT COMPLETE AUTOMATED (09/24/2024 9:44 AM EST) Pathologist [facility] WHITE BLOOD CELL COUNT 8.9 3.8 - 10.8 Thousand/ uL 09/24/2024 8:21 PM EST [facility] RED BLOOD CELL COUNT 4.91 3.80 - 5.10 Million/u L 09/24/2024 8:21 PM EST [facility] HEMOGLOBIN 15.3 11.7 - 15.5 g/dL 09/24/2024 8:21 PM EST [facility] HEMATOCRIT 46.6(H) 35.0 - 45.0 % 09/24/2024 8:21 PM EST [facility] MCV 94.9 80.0 - 100.0 fL 09/24/2024 8:21 PM EST [facility] MCH 31.2 27.0 - 33.0 pg 09/24/2024 8:21 PM EST [facility] MCHC 32.8 32.0 - 36.0 g/dL 09/24/2024 8:21 PM EST [facility] RDW 11.8 11.0 - 15.0 % 09/24/2024 8:21 PM EST [facility] PLATELET COUNT 290 140 - 400 Thousand/ uL 09/24/2024 8:21 PM EST [facility] MPV 9.8 7.5 - 12.5 fL 09/24/2024 8:21 PM EST [facility] Blood Blood / Unknown 09/24/2024 9 :44 AM EST 09/24/2024 4:58 PM EST Narrative [facility] - 09/24/2024 8:30 PM EST FASTING:YES For adults, a slight decrease in the calculated MCHC value (in the range of 30 to 32 g/dL) is most likely not clinically significant; however, it should be interpreted with caution in correlation with other red cell parameters and the patient's clinical condition. us Lani Sanz PA-C LAB - BLOOD DRAW Final Resul t [facility] [address] [place] [address], [facility] [address] [phone] * (ABNORMAL) COMPREHENSIVE METABOLIC PANEL (09/24/2024 9:44 AM EST) Only the most recent of2 resultswithin the time period is included. GLUCOSE 105(H) 65 - 99 mg/dL 09/24/2024 6:49 PM EST [facility] UREA NITROGEN (BUN) 15 7 - 25 mg/dL 09/24/2024 6:49 PM EST [facility] CREATININE (blood) 0.77 0.60 - 1.00 mg/dL 09/24/2024 6:49 PM EST [facility] EGFR 81 > OR = 60 mL/min/1. 73m2 09/24/2024 6:49 PM EST [facility] BUN/CREATININE RATIO SEE NOTE: 6 - 22 (calc) 09/24/2024 6:49 PM EST [facility] SODIUM 136 135 - 146 mmol/L 09/24/2024 6:49 PM EST [facility] POTASSIUM 4.3 3.5 - 5.3 mmol/L 09/24/2024 6:49 PM EST [facility] CHLORIDE 101 98 - 110 mmol/L 09/24/2024 6:49 PM [facility] CARBON DIOXIDE 28 20 - 32 mmol/L 09/24/2024 6:49 PM EST [facility] CALCIUM 10.1 8.6 - 10.4 mg/dL 09/24/2024 6:49 PM [facility] PROTEIN, TOTAL 6.7 6.1 - 8.1 g/dL 09/24/2024 6:49 PM EST [facility] ALBUMIN 4.3 3.6 - 5.1 g/dL 09/24/2024 6:49 PM [facility] GLOBULIN 2.4 1.9 - 3.7 g/dL (calc) 09/24/2024 6:49 PM [facility] ALBUMIN/GLOBULI N RATIO 1.8 1.0 - 2.5 (calc) 09/24/2024 6:49 PM [facility] BILIRUBIN, TOTAL 0.4 0.2 - 1.2 mg/dL 09/24/2024 6:49 PM [facility] ALKALINE PHOSPHATASE 82 37 - 153 U/L 09/24/2024 6:49 PM [facility] AST 15 10 - 35 U/L 09/24/2024 6:49 PM [facility] ALT 12 6 - 29 U/L 09/24/2024 6:49 PM [facility] Blood Blood / Unknown 09/24/2024 9 :44 AM EST 09/24/2024 4:49 PM EST [facility] - 09/24/2024 6:59 PM EST FASTING:YES . ? Fasting reference interval . For someone without known diabetes, a glucose value between 100 and 125 mg/dL is consistent with prediabetes and should be confirmed with a follow-up test. . ?? Not Reported: BUN and Creatinine are within ?? reference range. . us Lani Sanz PA-C LAB - BLOOD DRAW Final Resul t Performing Organization Address City/[facility]/ZIP Co de Phone Number [facility] [address] [address], [facility] [address] [place] [address] * (ABNORMAL) HEMOCUE HEMOGLOBIN (POCT) (09/24/2024 9:14 AM EST) Pathologist [facility] HEMOGLOBIN 15.3(A) 12 - 15 g/dL [facility] Blood Blood / Unknown 09/24/2024 9 :14 AM EST us Lani Sanz PA-C LAB - BLOOD DRAW Final Resul t Performing Organization Address City/[facility] Co de Phone Number [facility] [place] [address], * VITAMIN B12 & FOLATE (09/19/2024 2:00 PM EST) VITAMIN B12 622 200 - 1,100 pg/mL 09/20/2024 3:31 AM EST [facility] FOLATE, SERUM 8.1 ng/mL 09/20/2024 3:31 AM EST [facility] Blood Blood / Unknown 09/19/2024 2 :00 PM EST 09/20/2024 2:42 AM EST Narrative [facility] [employer] [facility] - 09/20/2024 3:37 AM EST FASTING:YES ? Reference Range ? Low: ? <3.4 ? Borderline: ?3.4-5.4 ? Normal: ?>5.4 . Caitlyn Swanson [facility] LAB - BLOOD DRAW Final Resul t [facility] [address] [address], [facility] [address] [place] [address] * (ABNORMAL) BLOOD COUNT COMPLETE AUTO&AUTO DIFRNTL WBC (09/19/2024 2:00 PM EST) [facility] WHITE BLOOD CELL COUNT 11.6(H) 3.8 - 10.8 Thousand/ uL 09/20/2024 2:24 AM EST [facility] RED BLOOD CELL COUNT 4.66 3.80 - 5.10 Million/u L 09/20/2024 2:24 AM EST [facility] HEMOGLOBIN 14.5 11.7 - 15.5 g/dL 09/20/2024 2:24 AM EST [facility] HEMATOCRIT 44.8 35.0 - 45.0 % 09/20/2024 2:24 AM EST [facility] MCV 96.1 80.0 - 100.0 fL 09/20/2024 2:24 AM EST [facility] [place] [facility] MCH 31.1 27.0 - 33.0 pg 09/20/2024 2:24 AM EST [facility] MCHC 32.4 32.0 - 36.0 g/dL 09/20/2024 2:24 AM EST [facility] RDW 11.8 11.0 - 15.0 % 09/20/2024 2:24 AM [facility] PLATELET COUNT 349 140 - 400 Thousand/ uL 09/20/2024 2:24 AM EST [facility] MPV 9.7 7.5 - 12.5 fL 09/20/2024 2:24 AM EST [facility] ABSOLUTE NEUTROPHILS 6,392 1,500 - 7,800 cells/uL 09/20/2024 2:24 AM [facility] ABSOLUTE LYMPHOCYTES 4,141(H) 850 - 3,900 cells/uL 09/20/2024 2:24 AM EST [facility] ABSOLUTE MONOCYTES 940 200 - 950 cells/uL 09/20/2024 2:24 AM EST [facility] ABSOLUTE EOSINOPHILS 81 15 - 500 cells/uL 09/20/2024 2:24 AM EST [facility] ABSOLUTE BASOPHILS 46 0 - 200 cells/uL 09/20/2024 2:24 AM EST [facility] NEUTROPHILS PCT 55.1 % 2:24 AM EST [facility] LYMPHOCYTES 35.7 % 09/20/2024 2:24 AM EST [facility] MONOCYTES 8.1 % 09/20/2024 2:24 AM EST [facility] EOSINOPHILS 0.7 % 09/20/2024 2:24 AM EST [facility] BASOPHILS 0.4 % 09/20/2024 2:24 AM EST [facility] Blood Blood / Unknown 09/19/2024 2 :00 PM EST 09/20/2024 1:44 AM EST Narrative [facility] - 09/20/2024 2:31 AM EST FASTING:YES For adults, a slight decrease in the calculated MCHC value (in the range of 30 to 32 g/dL) is most likely not clinically significant; however, it should be interpreted with caution in correlation with other red cell parameters and the patient's clinical condition. Caitlyn JENSEN LAB - BLOOD DRAW Final Resul t [facility] [address] [address], [facility] [address] [address] * LIPID PANEL (09/19/2024 2:00 PM EST) CHOLESTEROL, TOTAL 161 <200 mg/dL 09/20/2024 4:30 AM EST [facility] HDL CHOLESTEROL 62 > OR = 50 mg/dL 09/20/2024 4:30 AM EST [facility] TRIGLYCERIDES 70 <150 mg/dL 09/20/2024 4:30 AM EST [facility] LDL-CHOLESTEROL 84 mg/dL (calc) 09/20/2024 4:30 AM EST [facility] CHOL/HDLC RATIO 2.6 <5.0 (calc) 09/20/2024 4:30 AM EST [facility] NON-HDL CHOLESTEROL 99 <130 mg/dL (calc) 09/20/2024 4:30 AM EST [facility] Blood Blood / Unknown 09/19/2024 2 :00 PM EST 09/20/2024 2:42 AM EST Narrative [facility] - 09/20/2024 4:33 AM EST FASTING:YES Reference range: <100 . Desirable range <100 mg/dL for primary prevention; ?? <70 mg/dL for patients with CHD or diabetic patients with > or = 2 CHD risk factors. . LDL-C is now calculated using the Rebecca calculation, which is a validated novel method providing better accuracy than the Friedewald equation in the estimation of LDL-C. Ata GATES et al. ELEUTERIO. 2013;310(19): 1612-7194 (http://education.FlyData/faq/EHP772) For patients with diabetes plus 1 major ASCVD risk factor, treating to a non-HDL-C goal of <100 mg/dL (LDL-C of <70 mg/dL) is considered a therapeutic option. Caitlyn JENSEN LAB - BLOOD DRAW Final Resul t [facility] [address] [address], [facility] [address] [address] * ACUTE HEPATITIS PANEL W/RFLX (06/08/2023 1:29 PM EDT) HEPATITIS A IGM ANTIBODY NON-REACT JCARLOS NON-REACT JCARLOS 06/09/2023 3:07 AM EDT [facility] HEPATITIS B SURFACE ANTIGEN NON-REACT JCARLOS NON-REACT JCARLOS 06/09/2023 3:07 AM EDT [facility] HEPATITIS B CORE IGM ANTIBODY NON-REACT JCARLOS NON-REACT JCARLOS 06/09/2023 3:07 AM EDT [facility] HEPATITIS C ANTIBODY NON-REACT JCARLOS NON-REACT JCARLOS 06/09/2023 3:07 AM EDT [facility] Blood Blood / Unknown 06/08/2023 1 :29 PM EDT 06/09/2023 1:31 AM EDT [facility]arr[facility] - 06/09/2023 4:41 AM EDT FASTING:UNKNOWN . HCV antibody was non-reactive. There is no laboratory evidence of HCV infection. . In most cases, no further action is required. However, if recent HCV exposure is suspected, a test for HCV RNA (test code 93472) is suggested. . For additional information please refer to http://BellaDati.Ichiba/faq/ODV28r2 (This link is being provided for informational/ educational purposes only.) . . For additional information, please refer to http://BellaDati.Ichiba/faq/KXN198 (This link is being provided for informational/ educational purposes only.) . Caitlyn Swanson [facility] LAB - BLOOD DRAW Final Resul t [facility] [address] [address], [facility] [address] [place] [phone] from Last 3 Months or Most Recently Relevant to Health Maintenance Insurance MEDICARE - [place] [facility]) Member Subscriber Plan / Payer (Ef fective 2022-Present) Name:Lucita Parekh Relation to Subscriber:Self Name:Lucita Parekh Payer ID:[id number] Group ID:Not on file Type:[facility] Address: [address] [place] [id number] Advance Directives Documents on File Type Date Recorded Patient Service Desk Agent Expl anation Directives to Physicians 08/22/2024 12:00 AM [facility]IS HCP Care Teams Underwriting Support Specialist Relationship Specialty Start Date End Date Caitlyn Swanson CFNP [address] [place] [address] PCP - General [employer]ISTRATIVE [employer]GE Nurse Practitioner 04/11/23
--- OUTSIDE RECORDS SUMMARY | 2024-10-17 13:04 | XMS_ITS ---
Author Organization [facility] Address [address] [place] [phone] Care Team Providers Care Licensed Weigher Name Role Phone Sky KYLE, Caitlyn Primary Care Provider Unavail able CINTHYA ROJO Unavailable [phone] Emergency, Room Unavailable Unavailable CASPER SANTOS Unavailable [phone] REASON FOR VISIT left shoulder fx Encounters Encounter Location Date Provider Diagnosis [facility]CO[facility] [address] [place] [phone] 07/25/2023 CASPER SANTOS Plan Of Treatment No Information Progress Notes * Luicta PAR[birth year]HDOB:[birth year] (73 yo F)Acc No.[id number]:07/25/2023 Progress Notes Patient:?Lucita PAREKH Provider:?DAT Chamberlain :1950???Age:72 Y???Sex:Female D ate:07/25/2023 Address:[address] [place], [place] [phone] Pcp:Caitlyn Swanson NP Subjective: * Chief Complaints: * ???1. Left shoulder fx. * Medical History:? Objective: * Vitals:? Assessment: Plan: * Treatment: * * Electronic signature of JOYCE CLARK on 10/17/2024 at 01:04 PM EST Sign off status: Pending * Provider:?DAT Chamberlain Date: ?07/25/2023 Generated for Kirsten rhodes/[employer]/Janell on:?10/17/2024 01:04 PM EST
--- OUTSIDE RECORDS SUMMARY | 2024-10-17 13:04 | XMS_ITS | Encounter Summary ---
Author Organization [facility] Address [address] [place] [address] Care Team Providers Care Burglar Alarm Superintendent Name Role Phone Luca Thibodeaux Primary Care Provider [facility], [facility], Pcp Primary Care Provider [facility] Encounter Details Date Type Department Care Team Description 10/20/2022 Wool Tamper Report Medical Records [address] [place] [address] Brandt Correia MD Social History Tobacco Use [...] suspected to have Coronavirus/COVID-19? No / Unsure 10/20/2022 2:32 PM EST documented as of this encounter Plan of Treatment Not on file documented as of this encounter Visit Diagnoses Not on filedocumented in this encounter Care Teams Burglar Alarm Superintendent Relationship Specialty Start Date End Date Luca Thibodeaux [address] [place] [address] PCP - General Internal Medicine 01/10/22 04/23/23 [facility], Pcp [address] [place] [address] PCP - General Internal Medicine 04/24/23 documented as of this encounter
--- OUTSIDE RECORDS SUMMARY | 2024-10-17 13:04 | XMS_ITS | Encounter Summary ---
Author Organization [facility] Address [address] [place] [address] Care Team Providers Care Sas Programmer Name Role Phone Ena Egan MD Primary Care Provider Travis Rg MD Primary Care Provider UnavailSally Hutton MD Primary Care Provider Luca Bolanos Primary Care Provider [phone] [facility] Pcp Primary Care Provider Unavailabl e Reason for Visit * Reason Comments E-prescribe Rx Request Encounter Details Date Type Department Care Team Description 10/05/2020 Refill Adult Medicine [address] [address] Ramses Grubbs PA-C [address] [place] [address] [id number] E-prescribe Rx Request Social History Tobacco Use [...] have Coronavirus / COVID-19? No / Unsure 10/07/2020 9:39 AM EST documented as of this encounter Miscellaneous Notes * Telephone Encounter - Susan Hi PA-C - 10/07/2020 9:39 AM EST Second rx was declined by pod staff * Telephone Encounter - Abundio Smiley - 10/07/2020 9:37 AM EST melvin you approved one and declined the second rx??? im not sure what you are saying? Duplicate? * Telephone Encounter - Socorro Holland M.A. - 10/07/2020 8:52 AM EST Lab Results Component Value Date NA 139 04/08/2019 K 4.7 04/08/2019 CO2 29 04/08/2019 CL 106 04/08/2019 BUN 20 04/08/2019 CREAT 0.70 04/08/2019 GLU 90 04/08/2019 CA 10.0 04/08/2019 GFR > 60 04/08/2019 * Telephone Encounter - Neeru Vora - 10/06/2020 12:15 PM EST Patient would like script to be: E-PRESCRIBED/FAXED TO PHARMACY WHEN WAS THE PATIENT'S LAST APPOINTMENT IN ADULT MEDICINE? 08/02/2020 WHEN WAS THE LAST TIME THE PATIENT SAW THEIR PCP? 06/15/2020 Does patient have an upcoming appointment? No-unable to reach left [facility] to call for appointment due to refill request. Appt due (THE MEDICATION REQUESTED IS ON THE MED [...] N/A Patients current insurance carrier is: Payor: MEDIC[employer] / Plan: MEDICARE[employer] / Product Type: MEDICARE [id number] documented in this encounter Plan of Treatment Not on file documented as of this encounter Visit Diagnoses Not on filedocumented in this encounter Care Teams Sas Programmer Relationship Specialty Start Date End Date Ena Egan MD PCP - General Internal Medicine 08/03/11 02/17/21 Travis Hansen MD PCP - General Internal Medicine 02/18/21 06/06/21 Sally Stewart MD PCP - General Internal Medicine 06/07/21 01/09/22 Luca Thibodeaux [address] [place] [address] PCP - General Internal Medicine 01/10/22 04/23/23 Wolf Schaffer [address] [place] [address] PCP - General Internal Medicine 04/24/23 documented as of this encounter
--- OUTSIDE RECORDS SUMMARY | 2024-10-17 13:04 | XMS_ITS | Encounter Summary ---
Author Organization [facility] Address [address] [place] [address] Care Team Providers Care Shoe Cleaner Name Role Phone Ena Egan MD Primary Care Provider Travis Rg MD Primary Care Provider Unavail Sally Jasmine MD Primary Care Provider Luca Bolanos Primary Care Provider [phone] [facility], Pcp Primary Care Provider Christy weiss Encounter Details Date Type Department Care Team Description 08/25/2017 Release of Information Medical Records [address] [place] [id number] Abstract, Provider Social History Tobacco Use Types [...] on filedocumented in this encounter Care Teams Shoe Cleaner Relationship Specialty Start Date End Date Ena Egan MD PCP - General Internal Medicine 08/03/11 02/17/21 Travis Hansen MD PCP - General Internal Medicine 02/18/21 06/06/21 Sally Stewart MD PCP - General Internal Medicine 06/07/21 01/09/22 Luca Thibodeaux [address] [place] [address] PCP - General Internal Medicine 01/10/22 04/23/23 [facility], Pcp [address] [place] [address] PCP - General Internal Medicine 04/24/23 documented as of this encounter
--- OUTSIDE RECORDS SUMMARY | 2024-10-17 13:04 | XMS_ITS | Encounter Summary ---
Author Organization [facility] Address [address] [place] [address] Care Team Providers Care Pilot Manager Name Role Phone Ena Egan MD Primary Care Provider Travis Rg MD Primary Care Provider UnavailSally Hutton MD Primary Care Provider Luca Bolanos Primary Care Provider [phone] [facility] Primary Care Provider Unavailabl e Reason for Visit * Reason Comments E-prescribe Rx Request Encounter Details Date Type Department Care Team Description 07/21/2020 Refill Adult Medicine [address] [address] Ena Egan MD E-prescribe Rx Request Social [...] or suspected to have Coronavirus / COVID-19? Yes 07/08/2020 1:11 PM EST documented as of this encounter Miscellaneous Notes * Telephone Encounter - Sharee Ji M.A. - 07/22/2020 8:12 AM EST Lab Results Component Value Date NA 139 04/08/2019 K 4.7 04/08/2019 CO2 29 04/08/2019 CL 106 04/08/2019 BUN 20 04/08/2019 CREAT 0.70 04/08/2019 GLU 90 04/08/2019 CA 10.0 04/08/2019 GFR > 60 04/08/2019 Last appt 06/15/20 * Telephone Encounter - Safia Torres - 07/21/2020 3:34 PM EST Patient would like script to be: E-PRESCRIBED/FAXED TO PHARMACY WHEN WAS THE PATIENT'S LAST APPOINTMENT IN ADULT MEDICINE? 06/15/20 WHEN WAS THE LAST TIME THE PATIENT SAW THEIR PCP? Same as above Does patient have an upcoming appointment? no (THE MEDICATION REQUESTED IS ON THE MED [...] / [place] / Product Type: MEDICARE [id number] documented in this encounter Plan of Treatment Not on file documented as of this encounter Visit Diagnoses Not on filedocumented in this encounter Care Teams Pilot Manager Relationship Specialty Start Date End Date Ena Egan MD PCP - General Internal Medicine 08/03/11 02/17/21 Travis Hansen MD PCP - General Internal Medicine 02/18/21 06/06/21 Sally Stewart MD PCP - General Internal Medicine 06/07/21 01/09/22 Luca Thibodeaux [address] [place], [place] [id number] PCP - General Internal Medicine 01/10/22 04/23/23 [facility] Pcp [address] [place] [address] PCP - General Internal Medicine 04/24/23 documented as of this encounter
--- OUTSIDE RECORDS SUMMARY | 2024-10-17 13:04 | XMS_ITS | Encounter Summary ---
Author Organization [facility] Address [address] [place] [address] Care Team Providers Care Campus Monitor Name Role Phone Ena Egan MD Primary Care Provider Travis Rg MD Primary Care Provider Sally Kim MD Primary Care Provider Luca Bolanos Primary Care Provider [phone] Formerly [facility], [facility], Pcp Primary Care Provider Unavailabl e Reason for Visit * Reason Onset Date Comments Error 08/07/2020 Encounter Details Date Type Department Care Team Description 08/07/2020 Telephone Gastroenterology - [address] [place] [address] Ayan Welsh MD Error Social History Tobacco Use Types Packs/Day Years [...] have Coronavirus / COVID-19? No / Unsure 08/10/2020 12:23 PM EST documented as of this encounter Plan of Treatment Not on file documented as of this encounter Visit Diagnoses Not on filedocumented in this encounter Care Teams Campus Monitor Relationship Specialty Start Date End Date Ena Egan MD PCP - General Internal Medicine 08/03/11 02/17/21 Travis Hansen MD PCP - General Internal Medicine 02/18/21 06/06/21 Sally Stewart MD PCP - General Internal Medicine 06/07/21 01/09/22 Luca Thibodeaux [address] [place] [address] PCP - General Internal Medicine 01/10/22 04/23/23 [facility], [facility], Pcp [address] [place] [address] PCP - General Internal Medicine 04/24/23 documented as of this encounter
--- OUTSIDE RECORDS SUMMARY | 2024-10-17 13:04 | XMS_ITS | Encounter Summary ---
Author Organization [facility] Address [address] [place] [address] Care Team Providers Care Career Development Director Name Role Phone Ena Egan MD Primary Care Provider Travis Rg MD Primary Care Provider UnavailSally Hutton MD Primary Care Provider Luca Bolanos Primary Care Provider [phone] [facility] Pcp Primary Care Provider Unavailabl e Reason for Visit * Reason Comments E-prescribe Rx Request Encounter Details Date Type Department Care Team Description 10/02/2018 Refill Adult Medicine [address] [address] Susan Hi PA-C [address] [place] [address] E-prescribe Rx Request Social History Tobacco Use [...] encounter Miscellaneous Notes * Telephone Encounter - Socorro Holland M.A. - 10/02/2018 11:21 AM EST Lab Results Component Value Date NA 144 03/10/2016 K 4.7 03/10/2016 CO2 27.1 03/10/2016 CL 103 03/10/2016 BUN 23 03/10/2016 CREAT 0.7 03/10/2016 GLU 91 03/10/2016 CA 10.3 03/10/2016 GFR > 60 03/10/2016 * Telephone Encounter - Kelley Crenshaw - 10/02/2018 9:38 AM EST Patient would like script to be: E-PRESCRIBED/FAXED TO PHARMACY WHEN WAS THE PATIENT'S LAST APPOINTMENT IN ADULT MEDICINE? 07/17/18 WHEN WAS THE LAST TIME THE PATIENT SAW THEIR PCP? Same as above Does patient have an upcoming appointment? Yes 12/03/18 (THE MEDICATION REQUESTED IS ON THE MED LIST ABOVE) All of the medications requested were on the CURRENT MEDS list Did you check the Pharmacy information above?: YES Patient wants: 30 -day supply Is this a mail order prescription request ? NO If the refill is from a FAXED refill request what is the RX # listed on the fax? N/A Patients current insurance carrier is: [place] / [place] / Product Type: MEDICARE [id number] documented in this encounter Plan of Treatment Not on file documented as of this encounter Visit Diagnoses Not on filedocumented in this encounter Care Teams Career Development Director Relationship Specialty Start Date End Date Ena Egan MD PCP - General Internal Medicine 08/03/11 02/17/21 Travis Hansen MD PCP - General Internal Medicine 02/18/21 06/06/21 Sally Stewart MD PCP - General Internal Medicine 06/07/21 01/09/22 Luca Thibodeaux [address] [place] [address] PCP - General Internal Medicine 01/10/22 04/23/23 Sarbjit, Wolf [address] [place] [address] PCP - General Internal Medicine 04/24/23 documented as of this encounter
--- OUTSIDE RECORDS SUMMARY | 2024-10-17 13:04 | XMS_ITS | Encounter Summary ---
Author Organization [facility] Address [address] [place] [address] Care Team Providers Care Chief Reservoir Engineering Name Role Phone Ena Egan MD Primary Care Provider Travis Rg MD Primary Care Provider Sally Kim MD Primary Care Provider Luca Bolanos Primary Care Provider [phone] [facility] Pcp Primary Care Provider Christy weiss Encounter Details Date Type Department Care Team Description 09/15/2020 Orders Only Medical Records [address] [place] [address] Ayan Welsh MD Social History Tobacco Use [...] or suspected to have Coronavirus / COVID-19? Unable to assess 08/25/2020 8:10 AM EST documented as of this encounter Plan of Treatment Not on file documented as of this encounter Procedures Procedure Name Priority Date/Time Associated Diagnosis Comments OUTSIDE PATHOLOGY Routine 09/11/2020 documented in this encounter Results * OUTSIDE PATHOLOGY (09/11/2020) Ayan Welsh MD OUTSIDE LAB documented in this encounter Visit Diagnoses Not on filedocumented in this encounter Care Teams Chief Reservoir Engineering Relationship Specialty Start Date End Date Ena Egan MD PCP - General Internal Medicine 08/03/11 02/17/21 Travis Hansen MD PCP - General Internal Medicine 02/18/21 06/06/21 Sally Stewart MD PCP - General Internal Medicine 06/07/21 01/09/22 Luca Thibodeaux [address] [place] [address] PCP - General Internal Medicine 01/10/22 [facility]23[facility]23 [facility] [address] [place] [address] PCP - General Internal Medicine 04/24/23 documented as of this encounter
--- OUTSIDE RECORDS SUMMARY | 2024-10-17 13:04 | XMS_ITS | Encounter Summary ---
Author Organization [facility] Address [address] [place] [address] Care Team Providers Care Plug Saw Operator Name Role Phone Ena Egan MD Primary Care Provider Travis Rg MD Primary Care Provider UnavailSally Hutton MD Primary Care Provider Luca Bolanos Primary Care Provider [phone] [facility], Pcp Primary Care Provider Christy weiss Encounter Details Date Type Department Care Team Description 08/02/2018 Relay Checker Report Medical Records [address] [place] [address] Center, Arthritis Treatment [facility] [place] [address] Social History Tobacco Use Types Packs/Day Years [...] on filedocumented in this encounter Care Teams Plug Saw Operator Relationship Specialty Start Date End Date Ena Egan MD PCP - General Internal Medicine 08/03/11 02/17/21 Travis Hansen MD PCP - General Internal Medicine 02/18/21 06/06/21 Sally Stewart MD PCP - General Internal Medicine 06/07/21 01/09/22 Luca Thibodeaux [address] [place] [address] PCP - General Internal Medicine 01/10/22 04/23/23 Sarbjit, Wolf [address] [place] [address] PCP - General Internal Medicine 04/24/23 documented as of this encounter
--- OUTSIDE RECORDS SUMMARY | 2024-10-17 13:04 | XMS_ITS | Clinical Summary ---
Author Organization [facility] Address [address] [place] [address] Care Team Providers Care Tattoo Artist Name Role Phone Community, Pcp Primary Care Provider Unavailabl e Allergies No known active allergies Medications Medication Sig Dispensed Refills Start Date End Date Status prazosin (MINIPRESS) 2 MG capsule Take 1 Cap by mouth at bedtime. 30 Cap 2 06/19/2019 Active gabapentin (NEURONTIN) 300 MG capsule Take 1 Cap by mouth daily. 30 Cap 2 06/19/2019 Active hydrOXYzine (VISTARIL) 25 MG capsule Take 1 Cap by mouth at bedtime for 60 days. 30 Cap 2 06/19/2019 Active venlafaxine (EFFEXOR XR) 75 MG 24 hr capsule Take 1 Cap by mouth daily for 60 days. 30 Cap 2 06/19/2019 Active clonazepam (KLONOPIN) 2 MG tablet Take 1 Tab by mouth 2 times daily as needed for Anxiety for up to 30 days. 45 Tab 2 06/19/2019 Active clotrimazole-betame thasone (LOTRISONE) cream Apply sparingly to external affected area 2 times daily for 7-10 days. 15 g 1 02/16/2022 Active amphetamine-dextroa mphetamine (ADDERALL) 15 MG tablet Take 15 mg by mouth every morning. 0 Active Melatonin 10 MG Cap Take 1 Capsule by mouth at bedtime. 28 Capsule 5 06/14/2022 Active Eliquis 5 MG Tab Take 5 mg by mouth 2 times daily. 60 Tablet 5 08/22/2022 Active Cholecalciferol (Vitamin D) 25 MCG (1000 UT) Tab Take 1,000 Units by mouth daily. 90 Tablet 1 09/15/2022 Active Calcium Carb-Cholecalcifero l (Calcium 500 +D) 500-10 MG-MCG Tab Take 1 Tablet by mouth 2 times daily. 60 Tablet 5 11/18/2022 Active pantoprazole (PROTONIX) 40 MG tablet Take 1 Tablet by mouth daily. 90 Tablet 1 01/13/2023 Active solifenacin (VESICARE) 5 MG tablet Take 1 Tablet by mouth daily. 90 Tablet 1 01/13/2023 Active atorvastatin (Lipitor) 20 MG tablet Take 1 Tablet by mouth daily. 90 Tablet 1 03/20/2023 Active metoprolol (TOPROL-XL) 50 MG 24 hr tablet Take 1 Tablet by mouth daily. 90 Tablet 0 04/17/2023 Active triamcinolone acetonide (KENALOG-40) 40 MG/ML injection Inject 1 mL into the articular space once for 1 dose. 1 mL 0 04/22/2024 Active Hospital, Clinic, or Other Facility Administered Medication Ordered Dose Route Frequency Start Date End Date Status Sodium Hyaluronate SOSY (Ordered as: Euflexxa)Indications:Prima ry osteoarthritis of both knees IX EVERY 7 DAYS 03/12/2021 Active Active Problems Problem Noted Date Left wrist pain 12/28/2022 Arthritis of cdifshpz-agxenpqjh-yanarhha d joint of both hands 08/30/2022 Gastroesophageal reflux disease without esophagitis 08/22/2022 Chronic atrial fibrillation 08/22/2022 Fractures 02/09/2022 Overview: Per ot: Fractures of ribs 3 and 4 (left side), Fractures of both wrists and left thumb Atrial fibrillation with RVR 12/20/2021 Osteopenia 06/04/2021 Fecal occult blood test positive 020 Overview: Colonoscopy was normal Renal cyst, right 04/25/2019 History of basal cell carcinoma 06/13/20 18 Overview: BCC 06/21 left arm (superficial) Severe major depression without psychoti c features 02/09/2018 Pure hypercholesterolemia 10/30/2017 Lumbar spinal stenosis 10/22/2017 Overview: MRI 10/2017 Abnormal gait 10/03/2017 Overview: Referred to PT for gait disturbances and multiple falls. CT head normal. Normal B12 and lithium levels. MRI lumbar spine with mild stenosis and arthritis. Referred to physiatry for consideration of nerve conduction studies. 09/2017 but they exhausted attempts for her to follow up. 11/28/17 - pt reports gait improved after d/cing one of the depression meds (Lamictal?) history of atrial fibrillation, currentl y in sinus rhythm 02/18/2017 Overview: After ECT; never recurred. Vitamin D deficiency 03/10/2016 Major depression, recurrent, chronic Overview: [place] admission 09/2016, 05/2017, [place] Unit Admission 08/2017 - intentional overdose hx x2 , ECT therapy 05/2017, outside psychiatric care Dr Barry Chest pain, unspecified 08/06/2006 Overview: MIBI neg 05/10, EF 58 Other and unspecified hyperlipidemia 09/2005 Dermatophytosis of foot 05/05/2006 Irritable bowel syndrome 03/17/2006 Overview: EGD, Colonoscopy (-)08/06/01 OSTEOARTHRITIS 03/17/2006 Overview: IMO update Resolved Problems Problem Noted Date Resolved Date Obesity 11/11/2011 04/24/2013 Anemia associated with other specified nutritional deficiency 03/17/2006 10/11/2011 Overview: resolved aftyer hyterectomy IMO update Immunizations Name Administration Dates Next Due COVID-19 (Pfizer) 05/30/2021,12/10/2020,11/20/19 21 Influenza Flu (PT Reported) 08/19/2021 Influenza Vaccine-quadrivale nt 4 Years Plus 08/16/2017 Influenza vaccine high dose age 65 and over 08/22/2022,07/06/2021,11/05/2020,05/11 Pneumoccoccal(Adult) Polysac charide PPSV23 08/16/2017 Pneumococcal Conjugate PCV-13 02/10/2018 Shingrix (Patient reported) 07/10/2021 Shingrix (Recombinant zoster vaccine) 05/03/2022 TD (STATE SUPPLIED FOR ADULT S AND CHILDREN) 08/16/2017,02/25/2003 TETANUS/DIPTHERIA (ADULT) 02/25/2003 Tdap 04/21/2022 Family History Medical History Relation Name Comments AAA Father from AAA a ge 73, macular degeneration Arthritis Mother THR Arthritis Sister RA Blindness Negative Hx CA Breast Negative Hx CA Colon Negative Hx CA Ovarian Negative Hx Cataract Negative Hx Glaucoma Negative Hx Strabismus Negative Hx Relation Name Status Comments Father (Age 73) SKIN CA Mother (Age 80) Sister Social History Tobacco Use Types Packs/Day Years Used Date Smoking Tobacco: Former Smokeless Tobacco: Never Tobacco Cessation:Counseling Given: Not Answered Comments:quit 1993 Alcohol Use Standard Drinks/Week Comments Yes 0 (1 standard drink = 0.6 oz pur e alcohol) social-one drink per month Sex Assigned at Date Recorded Not on file Job Start Date Occupation Industry Not on file Not on file Not on file Last Filed Vital Signs Vital Sign Reading Time Taken Comments Blood Pressure 118/72 09/28/2022 9:39 AM EST C Pulse 80 09/28/2022 9:39 AM EST Temperature 36.5 ??C (97.7 ??F) 09/28/2022 9:39 AM ES T Respiratory Rate 16 09/06/2022 1:20 PM EST Oxygen Saturation 97% 07/06/2021 1:34 PM EDT Inhaled Oxygen Concentration - - Weight 110.7 kg (244 lb) 02/01/2023 11:34 AM EDT Height 167.6 cm (5' 6 ) 12/27/2022 2:52 PM EDT Body Mass Index 39.38 12/27/2022 2:52 PM EDT Plan of Treatment Health Maintenance Due Date Last Done Comments MAMMOGRAM 07/03/2022 07/03/2021, 10/05, 10/15/2018, Additional history exists DEPRESSION SCREEN 04/21/2023 04/21/2022, , 04/20/2020, Additional history exists FALL RISK ASSESSMENT 04/21/2023 04/21/2022, 04/26/2021, 04/20/2020, Additional history exists BONE DENSITY SCREENING 06/02/2023 , 10/17/2011, 07/15/2003, Additional history exists Covid-19 Vaccine (2022-2 4 season) 2024 05/30/2021, 12/10/2020, 11/19/2020 INFLUENZA (#1) 2024 08/22/2022, 08/04, 07/06/2021, Additional history exists BMI CHECK/ADVISE 09/04/2024 04/22/2024, , 12/04/2023, Additional history exists COLON CANCER SCREENING 09/11/2027 (Completed), 09/11/2020, 10/14/2013, Additional history exists CHOLESTEROL SCREENING 09/15/2027 09/15/2022 , 09/15/2022, 08/06/2017 (External Completion), Additional history exists DTAP/TDAP/TD (2 - Td or Tdap) 04/21/2032, 08/16/2017, 08/16/2017, Additional history exists PNEUMOCOCCAL VACCINE Completed 02/10/2018, 08/16/2017, 08/16/2017 SHINGLES VACCINE Completed 05/03/2022, 07/10/2021 HEPATITIS C SCREENING Completed 09/15/2022 Insurance Payer Benefit Plan / Group Subscriber ID Effective Dates Phone Address Type [place] MCR MCR F 1+/50% [id number] 2015-Pre sent [address] [place] [address] MEDICARE [id number] [place] [id number] 2015-Pre sent [address] [place] [id number] MEDICARE [id number] [place] [id number] 2015-Pre sent [address] [place] [id number] MEDICARE [id number] [facility] $10 [place] [address] [id number] 2016-Pre sent [phone] [facility] [address] [place] [id number] O [id number] [facility] HMO F 1+/$15 [id number] 2017-Pre sent [facility] [address] [place], [place] [address] O Mmv-pzi-Hyxwsdo [facility] SELF FUNDED MEDICARE SUPP $15 [place] [address] [id number] 2018-Pre sent ONE [facility] [address] [place] [address] MEDICARE SUPPLEMENTAL Care Teams Tattoo Artist Relationship Specialty Start Date End Date Community, Pcp PCP - General Internal Medicine 04/24/23
--- OUTSIDE RECORDS SUMMARY | 2024-10-17 13:04 | XMS_ITS | Encounter Summary ---
Author Organization [facility] Address [address] [place] [address] Care Team Providers Care Singing Teacher Name Role Phone Ena Egan MD Primary Care Provider Travis Rg MD Primary Care Provider Sally Kim MD Primary Care Provider Luca Bolanos Primary Care Provider [phone] [facility], [facility] Primary Care Provider Unavailabl e Reason for Visit * Reason Onset Date Comments Provider Call Back 04/14/2020 Encounter Details Date Type Department Care Team Description 04/14/2020 Telephone Adult [address] [address] Ena Egan MD Provider Call Back Social History Tobacco Use Types Packs/Day Years [...] Telephone Encounter - Susan Hi PA-C - 04/14/2020 3:46 PM EDT I am not sure why I am receiving this message. Wellness visit is offered by medicare as a screeningprocess. Please forward to the scheduling staff * Telephone Encounter - Ellie Oneill - 04/14/2020 3:26 PM EDT Patient has an wellness visit on Monday04/20/2020 and wants a nurse to explain what this visit entals . documented in this encounter Plan of Treatment Not on file documented as of this encounter Visit Diagnoses Not on filedocumented in this encounter Care Teams Singing Teacher Relationship Specialty Start Date End Date Ena Egan MD PCP - General Internal Medicine 08/03/11 02/17/21 Travis Hansen MD PCP - General Internal Medicine 02/18/21 06/06/21 Sally Stewart MD PCP - General Internal Medicine 06/07/21 01/09/22 Luca Thibodeaux [address] [place] [address] PCP - General Internal Medicine 01/10/22 04/23/23 [facility]ly [facility], [facility] [place] [address] PCP - General Internal Medicine 04/24/23 documented as of this encounter
--- OUTSIDE RECORDS SUMMARY | 2024-10-17 13:04 | XMS_ITS | Encounter Summary ---
Author Organization [facility] Address [address] [place] [address] Care Team Providers Care House Rn Name Role Phone Ena Egan MD Primary Care Provider Travis Rg MD Primary Care Provider Sally Kim MD Primary Care Provider Luca Bolanos Primary Care Provider [phone] [facility], Pcp Primary Care Provider Unavailabl e Reason for Visit * Reason Onset Date Comments APPOINTMENT 01/31/2020 Encounter Details Date Type Department Care Team Description 01/31/2020 Telephone Adult [address] [address] Ena Egan MD APPOINTMENT Social History Tobacco Use Types Packs/Day Years [...] Telephone Encounter - Ena Egan MD - 01/31/2020 5:51 PM EDT Pls cancel pt's hospital followup with Dr. Galdamez scheduled for February 03 per her request. [facility]p [facility]) so I can review documented in this encounter Plan of Treatment Not on file documented as of this encounter Visit Diagnoses Not on filedocumented in this encounter Care Teams House Rn Relationship Specialty Start Date End Date Ena Egan MD PCP - General Internal Medicine 08/03/11 02/17/21 Travis Hansen MD PCP - General Internal Medicine 02/18/21 06/06/21 Sally Stewart MD PCP - General Internal Medicine 06/07/21 01/09/22 Luca Thibodeaux [address] [place] [address] PCP - General Internal Medicine 01/10/22 04/23/23 [facility], [address] [place] [address] PCP - General Internal Medicine 04/24/23 documented as of this encounter
--- OUTSIDE RECORDS SUMMARY | 2024-10-17 13:04 | XMS_ITS | Encounter Summary ---
Author Organization [facility] Address [address] [place] [address] Care Team Providers Care Elevator Constructor Electric Name Role Phone Ena Egan MD Primary Care Provider Travis Rg MD Primary Care Provider Unavail Sally Jasmine MD Primary Care Provider Luca Bolanos Primary Care Provider [phone] [facility], Pcp Primary Care Provider Christy weiss Encounter Details Date Type Department Care Team Description 07/20/2018 Business Doc Medical Records [address] [place] [address] Abstract, Provider Social History Tobacco Use Types [...] on filedocumented in this encounter Care Teams Elevator Constructor Electric Relationship Specialty Start Date End Date Ena Egan MD PCP - General Internal Medicine 08/03/11 02/17/21 Travis Hansen MD PCP - General Internal Medicine 02/18/21 06/06/21 Sally Stewart MD PCP - General Internal Medicine 06/07/21 01/09/22 Luca Thibodeaux [address] [place] [address] PCP - General Internal Medicine 01/10/22 04/23/23 [facility], Pcp [address] [place] [address] PCP - General Internal Medicine 04/24/23 documented as of this encounter
--- OUTSIDE RECORDS SUMMARY | 2024-10-17 13:04 | XMS_ITS | Encounter Summary ---
Author Organization [facility] Address [address] [place] [address] Care Team Providers Care Electrical Worker Name Role Phone Ena Egan MD Primary Care Provider Travis Rg MD Primary Care Provider Unavail Sally Jasmine MD Primary Care Provider Luca Bolanos Primary Care Provider [phone] [facility], Pcp Primary Care Provider Christy weiss Encounter Details Date Type Department Care Team Description 10/28/2019 Business Doc Medical Records [address] [place] [address] Abstract, Provider Social History Tobacco Use Types [...] on filedocumented in this encounter Care Teams Electrical Worker Relationship Specialty Start Date End Date Ena Egan MD PCP - General Internal Medicine 08/03/11 02/17/21 Travis Hansen MD PCP - General Internal Medicine 02/18/21 06/06/21 Sally Stewart MD PCP - General Internal Medicine 06/07/21 01/09/22 Luca Thibodeaux [address] [place] [address] PCP - General Internal Medicine 01/10/22 04/23/23 [facility], Pcp [address] [place] [address] PCP - General Internal Medicine 04/24/23 documented as of this encounter
--- OUTSIDE RECORDS SUMMARY | 2024-10-17 13:04 | XMS_ITS | Encounter Summary ---
Author Organization [facility] Address [address] [place] [address] Care Team Providers Care Back Roller Name Role Phone Caitlyn Swanson Primary Care Provider [phone] Reason for Visit * Reason Comments Follow Up F/u on [facility] colgyPt currently taking buspirone hcl 7.5 mg Encounter Details Date Type Department Care Team (Late st Contact Info) Description 09/19/2024 2:40 PM EST Office Visit [facility] [address] [place] [address] Caitlyn Swanson CFNP [address] [place] [address] Chronic atrial fibrillation (HCC-CMS) (Primary Dx); Major depression, recurrent, chronic (HCC-CMS); 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 Follow Up F/u on [facility] Pt currently taking buspirone hcl 7.5 mg Pt is leaving 2 wks in [place] and needs to have a review of medication Buspirone 7.5 mg q8 h no increase until I see Brought with her medications to review Klonopin was decreased from 2 mg to 1 mg as effects cognitive thinking Reviewed by Provider: Documentation Reviewed by Provider: Past Medical History: Diagnosis Date ??? Appendicitis 02/2021 [facility] ??? Hx of psychiatric hospitalization ??? Hx of suicide attempt ??? Unintentional weight change Past Surgical History: Procedure Laterality Date ??? HYSTERECTOMY, FULL 1998 ??? KNEE REPLACEMENT Right 11/2021 [facility] Current Outpatient Medications on File Prior to Visit Medication Sig Dispense Refill ??? clonazePAM (KLONOPIN) 1 mg tablet Take 1 Tablet by mouth nightly at bedtime ??? atorvastatin (LIPITOR) 20 mg tablet Take 1 Tablet by mouth once daily 90 Tablet 4 ??? gabapentin (NEURONTIN) 300 mg capsule Take 1 Capsule by mouth nightly at bedtime 90 Capsule 4 ??? metoprolol succinate XL (TOPROL-XL) 50 mg 24 hr tablet Take 1 Tablet by mouth nightly at bedtime 90 Tablet 4 ??? prazosin (MINIPRESS) 5 mg capsule Take 1 Capsule by mouth nightly at bedtime 90 Capsule 3 ??? fluconazole (DIFLUCAN) 150 mg tablet Take 1 Tablet by mouth every 3 (three) days 3 Tablet 0 ??? venlafaxine XR (EFFEXOR XR) 150 mg 24 hr capsule Take 1 Capsule by mouth once daily with breakfast 90 Capsule 1 ??? melatonin 3 mg tablet Take 1 Tablet by mouth nightly at bedtime as needed for sleep 90 Tablet 4 ??? solifenacin (VESICARE) 10 mg tablet TAKE 1 TABLET BY MOUTH ONCE A DAY 90 Tablet 4 ??? dextroamphetamine-amphetamine (ADDERALL XR) 10 mg 24 hr capsule TAKE 1 CAPSULE BY MOUTH ONCE A DAY IN THE MORNING 90 Capsule 0 ??? pantoprazole (PROTONIX) 40 mg EC tablet Take 1 Tablet by mouth daily. 90 Tablet 3 ??? acetaminophen (TYLENOL ARTHRITIS ORAL) Take 1 Tablet by mouth 3 (three) times daily No current facility-administered medications on file prior to visit. No Known Allergies Review of Systems OBJECTIVE: Smoking Status Former Physical Exam Pleasant female in NAD, dressed well, good eye contact, hair combed, no pressured speech. Assessment/Plan: 1. Chronic atrial fibrillation (HCC-CMS) (Primary) - apixaban (ELIQUIS) 5 mg tab; Take 1 Tablet by mouth 2 (two) times a day, Disp- 180 Tablet, R-4 e-Prescribing, Long-term Dispense: 180 Tablet; Refill: 4 2. Major depression, recurrent, chronic (HCC-CMS) 3. 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 Time spent 20 min * Larry Henley - 09/19/2024 2:43 PM EST Do you have a dentist? Dental home Y/n: Yes, Have you seen the dentist in the last 6 months for a cleaning?: Yes, endorsed good habits documented in this encounter Miscellaneous Notes * Patient Instructions - MIKEY Santamaria - 09/19/2024 4:16 PM EST Advised to eat a healthy diet include emphasizing fruits, vegetables, whole grains, poultry, fish and nuts and limiting sugary foods and beverages. Eating this way may help increase fiber, which is also beneficial. A diet high in fiber can help lower cholesterol levels by as much as 10 percent. Increase exercise to 30-45 min q day. Decrease sugary drinks, stop soda intake. Limit ETOH intake. If you smoke, quit smoking. Advised to alway wear a seat belt, have and check smoke detectors regulary. Wear helmets if ridig bikes or motocycles. Alway practice safe sex. Always practice gun safety if have guns in the home. Lock guns and keep them away from children. Counseled on immunization recommendations, routine preventative health maintenance and screening tests as appropriate to patient's age and history. 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
--- OUTSIDE RECORDS SUMMARY | 2024-10-17 13:04 | XMS_ITS | Encounter Summary ---
Author Organization [facility] Address [address] [place] [address] Care Team Providers Care Wireline Operator Name Role Phone Ena Egan MD Primary Care Provider Travis Rg MD Primary Care Provider Unavail Sally Jasmine MD Primary Care Provider Luca Bolanos Primary Care Provider [phone] [facility] [place] [facility], Pcp Primary Care Provider Christy weiss Encounter Details Date Type Department Care Team Description 12/04/2018 Release of Information Medical Records [address] [place] [address] Abstract, Provider Social History Tobacco Use Types [...] on filedocumented in this encounter Care Teams Wireline Operator Relationship Specialty Start Date End Date Ena Egan MD PCP - General Internal Medicine 08/03/11 02/17/21 Travis Hansen MD PCP - General Internal Medicine 02/18/21 06/06/21 Sally Stewart MD PCP - General Internal Medicine 06/07/21 01/09/22 Luca Thibodeaux [address] [place] [address] PCP - General Internal Medicine 01/10/22 04/23/23 [facility] [place] [facility], Pcp [address] [place] [id number] PCP - General Internal Medicine 04/24/23 documented as of this encounter
--- OUTSIDE RECORDS SUMMARY | 2024-10-17 13:04 | XMS_ITS | Encounter Summary ---
Author Organization [facility] Address [address] [place] [address] Care Team Providers Care Railroad Signal And Switch Operator Name Role Phone Ena Egan MD Primary Care Provider Travis Rg MD Primary Care Provider Sally Kim MD Primary Care Provider Luca Bolanos Primary Care Provider [phone] [facility], Pcp Primary Care Provider Christy weiss Encounter Details Date Type Department Care Team Description 07/08/2020 Refill Gastroenterology - [address] [place] [address] Ayan Welsh MD Social History Tobacco Use [...] on filedocumented in this encounter Care Teams Railroad Signal And Switch Operator Relationship Specialty Start Date End Date Ena Egan MD PCP - General Internal Medicine 08/03/11 02/17/21 Travis Hansen MD PCP - General Internal Medicine 02/18/21 06/06/21 Sally Stewart MD PCP - General Internal Medicine 06/07/21 01/09/22 Luca Thibodeaux [address] [place] [id number] PCP - General Internal Medicine 01/10/22 04/23/23 [facility], Pcp [address] [place] [address] PCP - General Internal Medicine 04/24/23 documented as of this encounter
--- OUTSIDE RECORDS SUMMARY | 2024-10-17 13:04 | XMS_ITS | Encounter Summary ---
Author Organization [facility] Address [address] [place] [address] Care Team Providers Care Communications Manager Name Role Phone Ena Egan MD Primary Care Provider Travis Rg MD Primary Care Provider Unavail Sally Jasmine MD Primary Care Provider Luca Bolanos Primary Care Provider [phone] [facility] Pcp Primary Care Provider Unavaildawn Encounter Details Date Type Department Care Team Description 06/03/2019 Assembler Mechanical Ordnance Report Medical Records [address] [place] [address] Brandt Correia MD Social History Tobacco Use [...] on filedocumented in this encounter Care Teams Communications Manager Relationship Specialty Start Date End Date Ena Egan MD PCP - General Internal Medicine 08/03/11 02/17/21 Travis Hansen MD PCP - General Internal Medicine 02/18/21 06/06/21 Sally Stewart MD PCP - General Internal Medicine 06/07/21 01/09/22 Luca Thibodeaux [address] [place] [address] PCP - General Internal Medicine 01/10/22 04/23/23 [facility], Pcp [address] [place] [address] PCP - General Internal Medicine 04/24/23 documented as of this encounter
--- OUTSIDE RECORDS SUMMARY | 2024-10-17 13:04 | XMS_ITS | Encounter Summary ---
Author Organization [facility] Address [address] [place] [address] Care Team Providers Care Doughnut Glazier Name Role Phone Ena Egan MD Primary Care Provider Travis Rg MD Primary Care Provider Unavailab Sally Jasmine MD Primary Care Provider Luca Bolanos Primary Care Provider [phone] [facility], Pcp Primary Care Provider Unavailabl e Reason for Visit * Reason Onset Date Comments Medication 10/11/2019 prep Encounter Details Date Type Department Care Team Description 10/11/2019 Refill Gastroenterology - [address] [place] [address] Ayan Welsh MD Medication (prep) Social History Tobacco Use Types Packs/Day Years [...] on filedocumented in this encounter Care Teams Doughnut Glazier Relationship Specialty Start Date End Date Ena Egan MD PCP - General Internal Medicine 08/03/11 02/17/21 Travis Hansen MD PCP - General Internal Medicine 02/18/21 06/06/21 Sally Stewart MD PCP - General Internal Medicine 06/07/21 01/09/22 Luca Thibodeaux [address] [place] [address] PCP - General Internal Medicine 01/10/22 04/23/23 [facility], Wolf [address] [place] [address] PCP - General Internal Medicine 04/24/23 documented as of this encounter
--- OUTSIDE RECORDS SUMMARY | 2024-10-17 13:04 | XMS_ITS | Encounter Summary ---
Author Organization [facility] Address [address] [place] [address] Care Team Providers Care Machine Bookkeeper Name Role Phone Ena Egan MD Primary Care Provider Travis Rg MD Primary Care Provider Sally Kim MD Primary Care Provider Luca Bolanos Primary Care Provider [phone] [facility], Pcp Primary Care Provider Christy weiss Encounter Details Date Type Department Care Team Description 08/30/2017 Release of Information Medical Records [address] [place] [address] Abstract, Provider Social History Tobacco Use Types [...] on file documented as of this encounter Nursing Notes * Patti Crenshaw - 08/30/2017 12:01 PM EST AUTHORIZATION TO OBTAIN RECORDS TO [facility] documented in this encounter Plan of Treatment Not on file documented as of this encounter Visit Diagnoses Not on filedocumented in this encounter Care Teams Machine Bookkeeper Relationship Specialty Start Date End Date Ena Egan MD PCP - General Internal Medicine 08/03/11 02/17/21 Travis Hansen MD PCP - General Internal Medicine 02/18/21 06/06/21 Sally Stewart MD PCP - General Internal Medicine 06/07/21 01/09/22 Luca Thibodeaux [address] [place] [address] [id number] PCP - General Internal Medicine 01/10/22 04/23/23 [facility], [address] [address] PCP - General Internal Medicine 04/24/23 documented as of this encounter
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
--- OUTSIDE RECORDS SUMMARY | 2024-10-17 13:05 | XMS_ITS | Encounter Summary ---
Author Organization [facility] Address [address] [place] [address] Care Team Providers Care Shaker Plate Operator Name Role Phone Ena Egan MD Primary Care Provider Travis Rg MD Primary Care Provider Sally Kim MD Primary Care Provider Luca Bolanos Primary Care Provider [phone] [facility] Primary Care Provider Unavailabl e Reason for Visit * Reason Onset Date Comments refill request 06/02/2017 Encounter Details Date Type Department Care Team Description 06/02/2017 Refill Adult Medicine [address] [address] Ena Egan MD refill request Social History Tobacco Use Types Packs/Day Years [...] encounter Miscellaneous Notes * Telephone Encounter - Lani Linares - 06/02/2017 9:32 AM EDT Patient would like script to be: E-PRESCRIBED/FAXED TO PHARMACY WHEN WAS THE PATIENT'S LAST APPOINTMENT IN ADULT MEDICINE? 05/30/17 WHEN WAS THE LAST TIME THE PATIENT SAW THEIR PCP? Same as above Does patient have an upcoming appointment? Yes 11/28/2017 (THE MEDICATION REQUESTED IS ON THE MED LIST ABOVE) All of the medications requested were on the CURRENT MEDS list Did you check the Pharmacy information above?: YES Patient wants: 30 -day supply Is this a mail order prescription request ? NO Patients current [place] carrier is: [place] / [place] / Product Type: [place] [id number] documented in this encounter Plan of Treatment Not on file documented as of this encounter Visit Diagnoses Not on filedocumented in this encounter Care Teams Shaker Plate Operator Relationship Specialty Start Date End Date Ena Egan MD PCP - General Internal Medicine 08/03/11 02/17/21 Travis Hansen MD PCP - General Internal Medicine 02/18/21 06/06/21 Sally Stewart MD PCP - General Internal Medicine 06/07/21 01/09/22 Luca Thibodeaux [address] [place] [address] PCP - General Internal Medicine 01/10/22 04/23/[address] [address] PCP - General Internal Medicine 04/24/23 documented as of this encounter
--- OUTSIDE RECORDS SUMMARY | 2024-10-17 13:05 | XMS_ITS | Encounter Summary ---
Author Organization [facility] Address [address] [place] [address] Care Team Providers Care Change Management Analyst Name Role Phone Sally Stewart MD Primary Care Provider Luca Bolanos Primary Care Provider [phone] [facility], Pcp Primary Care Provider [facility] e Encounter Details Date Type Department Care Team Description 10/07/2021 Journeyman Meat Cutter Report Medical Records [address] [place] [address] Brandt Correia MD Social History Tobacco Use [...] on filedocumented in this encounter Care Teams Change Management Analyst Relationship Specialty Start Date End Date Sally Stewart MD PCP - General Internal Medicine 06/07/21 01/09/22 Luca Thibodeaux [address] [place] [phone] PCP - General Internal Medicine 01/10/22 04/23/23 [facility], Pcp [address] [place] [address] PCP - General Internal Medicine 04/24/23 documented as of this encounter
--- OUTSIDE RECORDS SUMMARY | 2024-10-17 13:05 | XMS_ITS | Encounter Summary ---
Author Organization [facility] Address [address] [place] [address] Care Team Providers Care Jailer Chief Name Role Phone Ena Egan MD Primary Care Provider Travis Rg MD Primary Care Provider Sally Kim MD Primary Care Provider Luca Bolanos Primary Care Provider [phone] [facility], Pcp Primary Care Provider Unavailabl e Reason for Visit * Reason Onset Date Comments Faxed Order 09/13/2017 Encounter Details Date Type Department Care Team Description 09/13/2017 Telephone Adult [address] [address] Ena Egan MD Faxed Order Social History Tobacco Use Types Packs/Day Years [...] encounter Miscellaneous Notes * Telephone Encounter - Milly Caballero - 09/13/2017 6:04 PM EST [facility] IS FAXING ORDERS TO BE SIGN AND FAX BACK TO [phone] documented in this encounter Plan of Treatment Not on file documented as of this encounter Visit Diagnoses Not on filedocumented in this encounter Care Teams Jailer Chief Relationship Specialty Start Date End Date Ena Egan MD PCP - General Internal Medicine 08/03/11 02/17/21 Travis Hansen MD PCP - General Internal Medicine 02/18/21 06/06/21 Sally Stewart MD PCP - General Internal Medicine 06/07/21 01/09/22 Luca Thibodeaux [address] [place] [address] PCP - General Internal Medicine 01/10/22 04[facility]23[facility]23 [facility] [address] [place] [address] PCP - General Internal Medicine 04/24/23 documented as of this encounter
--- OUTSIDE RECORDS SUMMARY | 2024-10-17 13:05 | XMS_ITS | Encounter Summary ---
Author Organization [facility] Address [address] [place] [address] Care Team Providers Care Exercise Physiology Professor Name Role Phone Ena Egan MD Primary Care Provider Travis Rg MD Primary Care Provider Unavail Sally Jasmine MD Primary Care Provider Luca Bolanos Primary Care Provider [phone] [facility] Pcp Primary Care Provider Christy wesis Encounter Details Date Type Department Care Team Description 08/06/2017 Hospital Medical Records [address] [place] [address] Maurisio Corea NP Social History Tobacco Use Types Packs/Day Years [...] on filedocumented in this encounter Care Teams Exercise Physiology Professor Relationship Specialty Start Date End Date Ena Egan MD PCP - General Internal Medicine 08/03/11 02/17/21 Travis Hansen MD PCP - General Internal Medicine 02/18/21 06/06/21 Sally Stewart MD PCP - General Internal Medicine 06/07/21 01/09/22 Luca Thibodeaux [address] [place] [address] PCP - General Internal Medicine 01/10/22 04/23/23 [facility], Pcp [address] [place] [address] PCP - General Internal Medicine 04/24/23 documented as of this encounter
--- OUTSIDE RECORDS SUMMARY | 2024-10-17 13:05 | XMS_ITS | Encounter Summary ---
Author Organization [facility] Address [address] [place] [address] Care Team Providers Care Agricultural Services Director Name Role Phone Ena Egan MD Primary Care Provider Travis Rg MD Primary Care Provider Unavail Sally Jasmine MD Primary Care Provider Luca Bolanos Primary Care Provider [phone] [facility] Pcp Primary Care Provider Christy weiss Encounter Details Date Type Department Care Team Description 08/11/2017 Hospital Medical Records [address] [place] [address] Social History Tobacco Use Types Packs/Day Years [...] on filedocumented in this encounter Care Teams Agricultural Services Director Relationship Specialty Start Date End Date Ena Egan MD PCP - General Internal Medicine 08/03/11 02/17/21 Travis Hansen MD PCP - General Internal Medicine 02/18/21 06/06/21 Sally Stewart MD PCP - General Internal Medicine 06/07/21 01/09/22 Luca Thibodeaux [address] [place] [address] PCP - General Internal Medicine 01/10/22 04/23/23 [facility], Pcp [address] [place] [address] PCP - General Internal Medicine 04/24/23 documented as of this encounter
--- OUTSIDE RECORDS SUMMARY | 2024-10-17 13:05 | XMS_ITS | Encounter Summary ---
Author Organization [facility] Address [address] [place] [address] Care Team Providers Care Assessment Nurse Name Role Phone Ena Egan MD Primary Care Provider Travis Rg MD Primary Care Provider Sally Kim MD Primary Care Provider Luca Bolanos Primary Care Provider [phone] [facility], Pcp Primary Care Provider Unavailabl e Reason for Visit * Reason Onset Date Comments REFERRAL 10/18/2017 Encounter Details Date Type Department Care Team Description 10/18/2017 Telephone Physiatry - [address] [address] Estela Armstrong MD [address] [place] [address] [place], [place] [id number] REFERRAL Social History Tobacco Use Types Packs/Day Years [...] Miscellaneous Notes * Telephone Encounter - Sharee Gordon - 10/18/2017 8:54 AM EST Patient is referred to: gait disturbances, multiple falls. Needs nerve conduction of lower extremities Priority: Routine FYI We left 2 messages and sent an unable to reach letter. No response from patient. We took the referral off the report. Thank You documented in this encounter Plan of Treatment Not on file documented as of this encounter Visit Diagnoses Not on filedocumented in this encounter Care Teams Assessment Nurse Relationship Specialty Start Date End Date Ena Egan MD PCP - General Internal Medicine 08/03/11 02/17/21 Travis Hansen MD PCP - General Internal Medicine 02/18/21 06/06/21 Sally Stewart MD PCP - General Internal Medicine 06/07/21 01/09/22 Luca Thibodeaux [address] [place] [address] [id number] PCP - General Internal Medicine 01/10/22 04/23/23 [facility], Wolf [address] [place] [address] PCP - General Internal Medicine 04/24/23 documented as of this encounter
--- OUTSIDE RECORDS SUMMARY | 2024-10-17 13:05 | XMS_ITS | Encounter Summary ---
Author Organization [facility] Address [address] [place] [address] Care Team Providers Care Biometrics Specialist Name Role Phone Sally Stewart MD Primary Care Provider Luca Bolanos Primary Care Provider [phone] [facility], Pcp Primary Care Provider [facility] Encounter Details Date Type Department Care Team Description 07/19/2021 Solar Designer/Installer Report Medical Records [address] [place] [address] Katharine Padilla MD Social History Tobacco Use Types Packs/Day [...] have Coronavirus / COVID-19? No / Unsure 07/22/2021 2:22 PM EST documented as of this encounter Plan of Treatment Not on file documented as of this encounter Visit Diagnoses Not on filedocumented in this encounter Care Teams Biometrics Specialist Relationship Specialty Start Date End Date Sally Stewatr MD PCP - General Internal Medicine 06/07/21 01/09/22 Luca Thibodeaux [address] [place] [address] [id number] PCP - General Internal Medicine 01/10/22 04/23/23 [facility], Pcp [address] [place] [address] PCP - General Internal Medicine 04/24/23 documented as of this encounter
--- OUTSIDE RECORDS SUMMARY | 2024-10-17 13:05 | XMS_ITS | Encounter Summary ---
Author Organization [facility] Address [address] [place] [address] Care Team Providers Care Document Management Analyst Name Role Phone Luca Thibodeaux Primary Care Provider [phone] [facility], Pcp Primary Care Provider Unavailabl e Reason for Visit * Reason Comments E-prescribe Rx Request Encounter Details Date Type Department Care Team Description 03/06/2022 Refill Adult Medicine [facility] [address] [place] [address] Susan Hi PA-C [address] [place] [address] E-prescribe Rx Request Social History Tobacco Use [...] encounter Miscellaneous Notes * Telephone Encounter - Irma Campos M.A. - 03/10/2022 8:17 AM EDT Lab Results Component Value Date NA 139 04/08/2019 K 4.7 04/08/2019 CO2 29 04/08/2019 CL 106 04/08/2019 BUN 20 04/08/2019 CREAT 0.65 07/20/2021 GLU 90 04/08/2019 CA 10.0 04/08/2019 GFR > 60 07/20/2021 ALLA 02/04/22 NOV 03/10/22 Appt with NEW PCP- 04/21/22 * Telephone Encounter - Lara Jordan - 03/08/2022 8:38 AM EDT Patient would like script to be: E-PRESCRIBED/FAXED TO PHARMACY WHEN WAS THE PATIENT'S LAST APPOINTMENT IN ADULT MEDICINE? 02/04/22 WHEN WAS THE LAST TIME THE PATIENT SAW THEIR PCP? 12/20/[address] Stewart Does patient have an upcoming appointment? Yes 03/10/22 (THE MEDICATION REQUESTED IS ON THE MED [...] / Plan: [place] / Product Type: MEDICARE [id number] documented in this encounter Plan of Treatment Not on file documented as of this encounter Visit Diagnoses Not on filedocumented in this encounter Care Teams Document Management Analyst Relationship Specialty Start Date End Date Luca Thibodeaux [address] [place] [address] PCP - General Internal Medicine 01/10/22 04/23/23 [facility], Pcp [address] [place] [address] PCP - General Internal Medicine 04/24/23 documented as of this encounter
--- OUTSIDE RECORDS SUMMARY | 2024-10-17 13:05 | XMS_ITS | Encounter Summary ---
Author Organization [facility] Address [address] [place] [address] Care Team Providers Care Benzene Operator Name Role Phone Ena Egan MD Primary Care Provider Travis Rg MD Primary Care Provider Sally Kim MD Primary Care Provider Luca Bolanos Primary Care Provider [phone] [facility], Pcp Primary Care Provider Unavailabl e Reason for Visit * Reason Onset Date Comments Faxed Order 10/03/2017 Encounter Details Date Type Department Care Team Description 10/03/2017 Telephone Adult [address] [address] Ena Egan MD Faxed Order Social History [...] * Telephone Encounter - Milly Caballero - 10/03/2017 2:22 PM EST [facility] IS FAXING ORDERS TO BE SIGN AND FAX BACK TO [phone]. documented in this encounter Plan of Treatment Not on file documented as of this encounter Visit Diagnoses Not on filedocumented in this encounter Care Teams Benzene Operator Relationship Specialty Start Date End Date Ena Egan MD PCP - General Internal Medicine 08/03/11 02/17/21 Travis Hansen MD PCP - General Internal Medicine 02/18/21 06/06/21 Sally Stewart MD PCP - General Internal Medicine 06/07/21 01/09/22 Luca Thibodeaux [address] [place] [address] PCP - General Internal Medicine 01/10/22 [facility]23[facility]23 [facility] [address] [place] [address] PCP - General Internal Medicine 04/24/23 documented as of this encounter
--- OUTSIDE RECORDS SUMMARY | 2024-10-17 13:05 | XMS_ITS | Encounter Summary ---
Author Organization [facility] Address [address] [place] [address] Care Team Providers Care Cake Inspector Name Role Phone Luca Thibodeaux Primary Care Provider [phone] [facility] Encounter Details Date Type Department Care Team Description 03/22/2022 Pt. Non Urgent Medical Question Adult Medicine [address] [phone] Sydney Gilmore MD [address] [place] [address] [phone] Social History Tobacco Use Types Packs/Day Years [...] as of this encounter Progress Notes * Aurea Vu M.A. - 03/22/2022 8:34 AM EDT Please see Oleg cheng FYI.. documented in this encounter Miscellaneous Notes * Telephone Encounter - Aurea Vu M.A. - 03/22/2022 8:34 AM EDTFrom: Lucita Iglesia To: Warren Gilmore Sent: 03/22/2022 8:32 AM EDT Subject: Foot fungus Foot fungus is improving with new cream. documented in this encounter Plan of Treatment Not on file documented as of this encounter Visit Diagnoses Not on filedocumented in this encounter Care Teams Cake Inspector Relationship Specialty Start Date End Date Luca Thibodeaux [address] [place] [address] [phone] PCP - General Internal Medicine 01/10/22 04/23/23 [facility], [address] [address] PCP - General Internal Medicine 04/24/23 documented as of this encounter
--- OUTSIDE RECORDS SUMMARY | 2024-10-17 13:05 | XMS_ITS | Encounter Summary ---
Author Organization [facility] Address [address] [place] [address] Care Team Providers Care Quarrying Specialist Name Role Phone Luca Thibodeaux Primary Care Provider [phone] [facility]cp [facility] Encounter Details Date Type Department Care Team Description 04/08/2022 Pt. Non Urgent Medical Question Adult Medicine [address] [address] Luca Thibodeaux [address] [place] [address] Social History Tobacco Use Types Packs/Day Years [...] on filedocumented in this encounter Care Teams Quarrying Specialist Relationship Specialty Start Date End Date Luca Thibodeaux [address] [place] [address] PCP - General Internal Medicine 01/10/22 04/23/23 [facility], Pcp [address] [place] [address] PCP - General Internal Medicine 04/24/23 documented as of this encounter
--- OUTSIDE RECORDS SUMMARY | 2024-10-17 13:05 | XMS_ITS | Encounter Summary ---
Author Organization [facility] Address [address] [place] [address] Care Team Providers Care Chronic Condition Nurse Name Role Phone Sally Stewart MD Primary Care Provider Luca Bolanos Primary Care Provider [phone] [facility], Pcp Primary Care [facility] Encounter Details Date Type Department Care Team Description 12/16/2021 Battery Hand Report Medical Records [address] [place] [address] Glory Ramey Social History Tobacco Use Types Packs/Day Years [...] on filedocumented in this encounter Care Teams Chronic Condition Nurse Relationship Specialty Start Date End Date Sally Stewart MD PCP - General Internal Medicine 06/07/21 01/09/22 Luca Thibodeaux [address] [place] [address] [phone] PCP - General Internal Medicine 01/10/22 04/23/23 [facility], Pcp [address] [place] [address] PCP - General Internal Medicine 04/24/23 documented as of this encounter
--- OUTSIDE RECORDS SUMMARY | 2024-10-17 13:05 | XMS_ITS | Encounter Summary ---
Author Organization [facility] Address [address] [place] [address] Care Team Providers Care Electric Range Servicer Name Role Phone Ena Egan MD Primary Care Provider Travis Rg MD Primary Care Provider Unavail Sally Jasmine MD Primary Care Provider Luca Bolanos Primary Care Provider [phone] Count Includes [facility], Pcp Primary Care Provider Christy weiss Encounter Details Date Type Department Care Team Description 01/09/2017 Release of Information Medical Records [address] [place] [address] Abstract, Provider Social History Tobacco Use Types [...] on filedocumented in this encounter Care Teams Electric Range Servicer Relationship Specialty Start Date End Date Ena Egan MD PCP - General Internal Medicine 08/03/11 02/17/21 Travis Hansen MD PCP - General Internal Medicine 02/18/21 06/06/21 Sally Stewart MD PCP - General Internal Medicine 06/07/21 01/09/22 Luca Thibodeaux [address] [place] [address] PCP - General Internal Medicine 01/10/22 04/23/23 Count Includes [facility], Pcp [address] [place] [address] PCP - General Internal Medicine 04/24/23 documented as of this encounter
--- OUTSIDE RECORDS SUMMARY | 2024-10-17 13:05 | XMS_ITS | Encounter Summary ---
Author Organization [facility] Address [address] [place] [address] Care Team Providers Care Environmental Services Manager Name Role Phone Ena Egan MD Primary Care Provider Travis Rg MD Primary Care Provider Unavail Sally Jasmine MD Primary Care Provider Luca Bolanos Primary Care Provider [phone] [facility], Pcp Primary Care Provider Christy weiss Encounter Details Date Type Department Care Team Description 10/06/2017 Release of Information Medical Records [address] [place] [address] Abstract, Provider Social History Tobacco Use Types [...] on filedocumented in this encounter Care Teams Environmental Services Manager Relationship Specialty Start Date End Date Ena Egan MD PCP - General Internal Medicine 08/03/11 02/17/21 Travis Hansen MD PCP - General Internal Medicine 02/18/21 06/06/21 Sally Stewart MD PCP - General Internal Medicine 06/07/21 01/09/22 Luca Thibodeaux [address] [place] [address] PCP - General Internal Medicine 01/10/22 04/23/23 [facility], Pcp [address] [place] [address] PCP - General Internal Medicine 04/24/23 documented as of this encounter
--- OUTSIDE RECORDS SUMMARY | 2024-10-17 13:05 | XMS_ITS | Encounter Summary ---
Author Organization [facility] Address [address] [place] [address] Care Team Providers Care Rotor Casting Machine Operator Name Role Phone Ena Egan MD Primary Care Provider Travis Rg MD Primary Care Provider Sally Kim MD Primary Care Provider Luca Bolanos Primary Care Provider [phone] [facility], Pcp Primary Care Provider Unavailabl e Reason for Visit * Reason Onset Date Comments Faxed Order 11/03/2017 Encounter Details Date Type Department Care Team Description 11/03/2017 Telephone Adult [address] [address] Ena Egan MD Faxed Order Social History [...] encounter Miscellaneous Notes * Telephone Encounter - Daria Ponce - 11/03/2017 1:32 PM EST Faxed orders received from [facility] PT, please sign and fax back to [phone]. documented in this encounter Plan of Treatment Not on file documented as of this encounter Visit Diagnoses Not on filedocumented in this encounter Care Teams Rotor Casting Machine Operator Relationship Specialty Start Date End Date Ena Egan MD PCP - General Internal Medicine 08/03/11 02/17/21 Travis Hansen MD PCP - General Internal Medicine 02/18/21 06/06/21 Sally Stewart MD PCP - General Internal Medicine 06/07/21 01/09/22 Luca Thibodeaux [address] [place] [address] PCP - General Internal Medicine 01/10/22 [facility] [address] [place] [id number] PCP - General Internal Medicine 04/24/23 documented as of this encounter
--- OUTSIDE RECORDS SUMMARY | 2024-10-17 13:05 | XMS_ITS | Encounter Summary ---
Author Organization [facility] Address [address] [place] [address] Care Team Providers Care Public Safety Teacher Name Role Phone Sally Stewart MD Primary Care Provider Luca Bolanos Primary Care Provider [facility], Pcp Primary Care Provider Unavailabl e Reason for Visit * Reason Onset Date Comments Follow-up 10/20/2021 bilateral hand a rthritis Encounter Details Date Type Department Care Team Description 10/20/2021 Telephone [facility] [address] [facility] [address] [place] [phone] Lani Richey APRN Follow-up (bilateral hand arthritis) Social History Tobacco Use Types Packs/Day Years [...] have Coronavirus / COVID-19? No / Unsure 10/14/2021 9:58 AM EST documented as of this encounter Miscellaneous Notes * Telephone Encounter - Best Christie - 10/21/2021 2:08 PM EST Pt states that she spoke with nurse navigator Maddie Ely from the [facility] Orthopedic Dept. * Telephone Encounter - Best Christie - 10/20/2021 3:31 PM EST Pt states that she is having knee replacement surgery on November 02 at [facility] with Dr. Higinio Hennessy. She states that she spoke with the nurse navigator from Dr. Hennessy's office and was told that it is okay to get cortisone injections as long as it is not in her knees. Pt confirmed Monday's appt time. She wants injection in her wrists. documented in this encounter Plan of Treatment Not on file documented as of this encounter Visit Diagnoses Not on filedocumented in this encounter Care Teams Public Safety Teacher Relationship Specialty Start Date End Date Sally Stewart MD PCP - General Internal Medicine 06/07/21 01/09/22 Luca Thibodeaux [address] [place] [address] PCP - General Internal Medicine 01/10/22 04/23/23 [facility], Wolf [address] [place] [address] PCP - General Internal Medicine 04/24/23 documented as of this encounter
--- OUTSIDE RECORDS SUMMARY | 2024-10-17 13:05 | XMS_ITS | Encounter Summary ---
Author Organization [facility] Address [address] [place] [address] Care Team Providers Care Enterprise Infrastructure Architect Name Role Phone Ena Egan MD Primary Care Provider Travis Rg MD Primary Care Provider Sally Kim MD Primary Care Provider Luca Bolanos Primary Care Provider [phone] [facility], Pcp Primary Care Provider Unavailabl e Reason for Visit * Reason Onset Date Comments Faxed Order 10/30/2017 Encounter Details Date Type Department Care Team Description 10/30/2017 Telephone Adult [address] [address] Ena Egan MD Faxed Order Social History [...] * Telephone Encounter - Daria Ponce - 10/30/2017 3:31 PM EST Faxed orders received from [facility], please sign and fax back to [phone]. documented in this encounter Plan of Treatment Not on file documented as of this encounter Visit Diagnoses Not on filedocumented in this encounter Care Teams Enterprise Infrastructure Architect Relationship Specialty Start Date End Date Ena Egan MD PCP - General Internal Medicine 08/03/11 02/17/21 Travis Hansen MD PCP - General Internal Medicine 02/18/21 06/06/21 Sally Stewart MD PCP - General Internal Medicine 06/07/21 01/09/22 Luca Thibodeaux [address] [place] [address] PCP - General Internal Medicine 01/10/22 [facility]23[facility]23 [facility] [address] [place] [address] PCP - General Internal Medicine 04/24/23 documented as of this encounter
--- OUTSIDE RECORDS SUMMARY | 2024-10-17 13:05 | XMS_ITS | Encounter Summary ---
Author Organization [facility] Address [address] [place] [address] Care Team Providers Care Jaw Skinner Name Role Phone Ena Egan MD Primary Care Provider Travis Rg MD Primary Care Provider Unavail Sally Jasmine MD Primary Care Provider Luca Bolanos Primary Care Provider [phone] [facility] Pcp Primary Care Provider Christy weiss Encounter Details Date Type Department Care Team Description 09/12/2016 Business Doc Medical Records [address] [place] [address] Abstract, Provider Social History Tobacco Use Types [...] on filedocumented in this encounter Care Teams Jaw Skinner Relationship Specialty Start Date End Date Ena Egan MD PCP - General Internal Medicine 08/03/11 02/17/21 Travis Hansen MD PCP - General Internal Medicine 02/18/21 06/06/21 Sally Stewart MD PCP - General Internal Medicine 06/07/21 01/09/22 Luca Thibodeaux [address] [place] [address] PCP - General Internal Medicine 01/10/22 04/23/23 [facility], Pcp [address] [place] [address] PCP - General Internal Medicine 04/24/23 documented as of this encounter
--- OUTSIDE RECORDS SUMMARY | 2024-10-17 13:05 | XMS_ITS | Clinical Summary ---
Author Organization [address] Address [address] [place] [phone] Phone Care Team Providers Care Technician Helper Instrument Name Role Phone Luca Thibodeaux MD Primary Care Provider [phone] Allergies No known active allergies Medications amphetamine-dex troamphetamine (ADDERALL) 15 mg tablet Take 15 mg by mouth every morning. Active atorvastatin (LIPITOR) 20 mg tablet Take 1 tablet (20 mg total) by mouth 1 (one) time each day. 3 Active calcium carbonate/vitam in D3 (CALCIUM 500 + D ORAL) Take 1 Tablet by mouth 2 times daily. 3 Active cholecalciferol (VITAMIN D-3) 25 mcg (1,000 unit) tablet Take 1,000 Units by mouth daily. 3 Active clonazePAM (KlonoPIN) 2 mg tablet Take 1 Tab by mouth 2 times daily as needed for Anxiety for up to 30 days. 9 Active apixaban (Eliquis) 5 mg tablet Take 5 mg by mouth 2 times daily. 2 Active gabapentin (NEURONTIN) 300 mg capsule Take 1 Cap by mouth daily. 9 Active hydrOXYzine pamoate (VISTARIL) 25 mg capsule Take 1 Cap by mouth at bedtime for 60 days. 9 Active melatonin 10 mg capsule Take 1 Capsule by mouth at bedtime. 2 Active metoprolol succinate (TOPROL-XL) 50 mg 24 hr tablet Take 1 tablet (50 mg total) by mouth 1 (one) time each day. 3 Active pantoprazole (PROTONIX) 40 mg EC tablet Take 1 tablet (40 mg total) by mouth 1 (one) time each day. 3 Active prazosin (MINIPRESS) 2 mg capsule Take 1 Cap by mouth at bedtime. 9 Active solifenacin (VESICARE) 5 mg tablet Take 1 tablet (5 mg total) by mouth 1 (one) time each day. 3 Active venlafaxine XR (EFFEXOR-XR) 75 mg 24 hr capsule Take 1 Cap by mouth daily for 60 days. 9 Active clotrimazole-be tamethasone (LOTRISONE) 1-0.05 % cream Apply sparingly to external affected area 2 times daily for 7-10 days. 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 08/30/2022 Chronic atrial fibrillation 08/22/2022 Gastroesophageal reflux disease without esophagi tis 08/22/2022 Fractures 02/09/2022 Overview (08/30/2024): Per ot: Fractures of ribs 3 and 4 (left side), Fractures of both wrists and left thumb Atrial fibrillation with RVR 12/20/2021 Osteopenia 06/04/2021 Fecal occult blood test positive 06/15/2020 Overview (08/30/2024): Colonoscopy was normal Renal cyst, right 04/25/2019 Severe major depression without psychotic featur es 02/09/2018 Pure hypercholesterolemia 10/30/2017 Lumbar spinal stenosis 10/22/2017 Overview (08/30/2024): MRI 10/2017 Abnormal gait 10/03/2017 Overview (08/30/2024): Referred to PT for gait disturbances and multiple falls. CT head normal. Normal B12 and lithium levels. MRI lumbar spine with mild stenosis and arthritis. Referred to physiatry for consideration of nerve conduction studies. 09/2017 but they exhausted attempts for her to follow up. 11/28/17 - pt reports gait improved after d/cing one of the depression meds (Lamictal?) Vitamin D deficiency 03/10/2016 Major depression, recurrent, chronic 12/23/2013 Overview (08/30/2024): [facility] 09/2016, 05/2017, [facility] Admission 08/2017 - intentional overdose hx x2 , ECT therapy 05/2017, outside psychiatric care Dr Barry Chest pain, unspecified 08/06/2006 Overview (08/30/2024): MIBI neg 05/10, EF 58 Dermatophytosis of foot 05/05/2006 Hyperlipidemia 05/05/2006 Irritable bowel syndrome 03/17/2006 Overview (08/30/2024): EGD, Colonoscopy (-)08/06/01 Generalized osteoarthrosis of hand 03/17/2006 Overview (08/30/2024): IMO update Encounters Date Type Department Care Team Description 08/08/2024 3:40 PM EST - 08/08/2024 11:59 PM EST Hospital Encounter Radiology Department - [address] [phone] Screening mammogram, encounter for Discharge Disposition: Home or Self Care from Last 3 Months Immunizations Name Administration Dates Next Due Influenza Quadravalent, 0.5m l (Fluad) 65yo and older 11/05/2020 Influenza Quadravalent, MDCK , 0.5ml, with preservative (Flucelvax) 6mo and older 08/16/2017 Influenza trivalent, 0.5mL ( Fluzone High-dose) 65yo and older 08/22/2022,07/06/2021,05/11/2018 Influenza, Unspecified 08/19/2021 Waspit SARS-CoV-2 COVID-19, mRNA, LNP-S, preservative free 05/30/2021 Pneumococcal conjugate 13 va lent (Prevnar 13, PCV13) 2mo and older 02/10/2018 Pneumococcal polysaccharide 23 valent (Pneumovax 23) 2yo and older 08/16/2017 Td Tetanus diptheria (Tdvax) 7yo and older 08/16 Td, Unspecified 02/25/2003 Tdap Tetanus diptheria acell ular pertussis (Boostrix; Adacel) 7yo and older 04/21/2022,02/25/2003 Zoster recombinant (Shingrix ) 19yo and older 05/03/2022,07/10/2021 Surgical History Surgery Date Site/Laterality Comments COLONOSCOPY 08/2001 PROCEDURE: HISTORICAL COLONOSCOPY; COMMENT: WNL OTHER SURGICAL HISTORY 2004 PROCEDURE: BREAST,NEEDLE ASPIRATION CYTOLOGY EXAM COLONOSCOPY 2013 PROCEDURE: HISTORICAL COLONOSCOPY; COMMENT: Inc to mid right colon; ? 5 mm polyp in the TC. HYSTERECTOMY 2000 PROCEDURE: HISTORICAL HYSTERECTOMY; COMMENT: no ovaries OTHER SURGICAL HISTORY 06/2018 PROCEDURE: HISTORICAL CA BASAL CELL; COMMENT: BCC 06/21 left arm (superficial) BREAST BIOPSY PROCEDURE: BX BREAST; PERC NEEDLE CORE W/IMAG GUID; COMMENT: fna lt breast UPPER GASTROINTESTINAL ENDOSCOPY 2013 PROCEDURE: NV UPPER GI ENDOSCOPY PERFORMED; COMMENT: normal UPPER GASTROINTESTINAL ENDOSCOPY 08/2001 PROCEDURE: NV UPPER GI ENDOSCOPY PERFORMED; COMMENT: WNL APPENDECTOMY 01/2020 PROCEDURE: HISTORICAL APPENDECTOMY; COMMENT: [facility] COLONOSCOPY 09/11/2020 PROCEDURE: HISTORICAL COLONOSCOPY; COMMENT: Minimal diverticulosis; 3 mm cecal polyp: Tubular adenoma. APPENDECTOMY PROCEDURE: NV APPENDECTOMY Medical History Medical History Date Comments Irritable bowel syndrome DX:Irri table bowel syndrome; COMMENT: EGD, Colonoscopy (-)08/06/01 Lumbosacral spondylosis with out myelopathy DX:Lumbosacral spondylosis w ithout myelopathy Generalized osteoarthrosis, involving hand DX:Generalized osteoarthrosi s, involving hand Dermatophytosis of foot DX:[place] tophytosis of foot Iron deficiency anemia secon guillermo to blood loss (chronic) DX:Iron deficiency anemia se condary to blood loss (chronic); COMMENT: RESOLVED AFTER HYSTERECTOMY Vitamin D deficiency 03/10/2016 DX:Vitamin D deficiency Chest pain 08/06/2006 DX:Chest pain; C OMMENT: MIBI neg 05/10, EF 58 Lumbar spinal stenosis 10/22/2017 DX:Lumbar spinal stenosis; COMMENT: MRI 10/2017 Pure hypercholesterolemia 10/30/2017 DX:Pur e hypercholesterolemia Major depression, recurrent, chronic (CMS/HCC) 12/23/2013 DX:Major depression, recurre nt, chronic (HCC); COMMENT: [facility] 09/2016, 05/2017, [facility] Admission 08/2017 - intentional overdose hx x2 , ECT therapy 05/2017, outside psychiatric care Dr Barry Abnormal gait 10/03/2017 DX:Abnormal gait ; COMMENT: Referred to PT for gait disturbances and multiple falls. CT head normal. Normal B12 and lithium levels. MRI lumbar spine with mild stenosis and arthritis. Referred to physiatry for consideration of nerve conduction studies. 09/2017 but they exhausted attempts for her to follow up History of basal cell carcinoma 06/13/2018 DX:History of basal cell carcinoma; COMMENT: BCC 06/21 left arm (superficial) Actinic keratosis, hx of DX:Acti perez keratosis, hx of Osteopenia 06/04/2021 DX:Osteopenia Gastroesophageal reflux dise ase without esophagitis 08/22/2022 DX:Gastroesophageal reflux d isease without esophagitis Family History Medical History Relation Name Comments Abdominal Aortic Anuerysm (AAA) Father from AAA age 73, macular degeneration Arthritis Mother THR Arthritis Sister RA Blindness Neg Hx Breast cancer Neg Hx Cataracts Neg Hx Colon cancer Neg Hx Glaucoma Neg Hx Ovarian cancer Neg Hx Strabismus Neg Hx Relation Name Status Comments Father (Age 73) SKIN CA Mother (Age 80) Sister Social History Tobacco Use Types Packs/Day Years Used Date Smoking Tobacco: Former Smokeless Tobacco: Never Tobacco Cessation:Counseling Given: Not Answered Alcohol Use Standard Drinks/Week Comments Yes 0 (1 standard drink = 0.6 oz pur e alcohol) Comments No Sex and Gender Information Value Date Recorded Sex Assigned at Not on file Legal Sex Female 11:04 PM EST Gender Identity Not on file Sexual Orientation Not on file Obstetrics History Para Term AB IAB SAB Ectopic Multiple Livin g Live Births 0 0 0 Last Filed Vital Signs Vital Sign Reading Time Taken Comments Blood Pressure 130/74 11/18/2022 1:52 PM EDT Pulse 76 11/18/2022 1:52 PM EDT Temperature - - Respiratory Rate - - Oxygen Saturation - - Inhaled Oxygen Concentration - - Weight 111 kg (244 lb) 02/01/2023 11:34 AM EDT Height 167.6 cm (5' 6 ) 12/27/2022 2:52 PM EDT Body Mass Index 39.38 12/27/2022 2:52 PM EDT Plan of Treatment Health Maintenance Due Date Last Done Comments RSV Immunization Patients 60+ Years Old (1 - Risk 60-74 years 1-dose series) 2010 Falls Risk Assessment 08/13/2022 Social Influencers of Health Screening 08/13/2022 Medicare Annual Wellness Visit 04/21/2023 04/21/2022 Depression Screening 08/22/2025 08/22/2024 Breast Cancer Screening 08/08/2026 08/08/20, 07/03/2021, 10/23/2019, Additional history exists Colorectal Cancer Screening: Colonoscopy 09/11/2027 09/11/2020 Cholesterol Screening (Lipid Panel) 09/15/2027 09/15/2022 Osteoporosis Screening (Bone Density Screening) 06/02/2031 06/02/2021 DTaP,Tdap,and Td Vaccines (5 - Td or Tdap) 04/21/2032 04/21/2022, 08/16/2017, 02/25/2003, Additional history exists Pneumococcal Vaccine: 50+ Years Completed 02/10/2018, 08/16/2017 Zoster Vaccines Completed 05/03/2022, 07/10/2021 Hepatitis C Screening Completed 06/08/2023, 023 COVID-19 Vaccine Completed 06/11/2024, , 06/01/2021, Additional history exists Influenza Vaccine Completed 06/11/2024, , 08/22/2022, Additional history exists HIB Vaccines Aged Out No longer eligi ble based on patient's age to complete this topic HPV Vaccines Aged Out No longer eligi ble based on patient's age to complete this topic Hepatitis A Vaccines Aged Out No long er eligible based on patient's age to complete this topic Hepatitis B Vaccines Aged Out No long er eligible based on patient's age to complete this topic IPV Vaccines Aged Out No longer eligi ble based on patient's age to complete this topic MMR Vaccines Aged Out No longer eligi ble based on patient's age to complete this topic Meningococcal ACWY Vaccine Aged Out N o longer eligible based on patient's age to complete this topic Meningococcal B Vacine Aged Out No lo nger eligible based on patient's age to complete this topic RSV Immunization Patients Under 20 months Aged Out No longer eligible based on patient's age to complete this topic Varicella Vaccines Aged Out No longer eligible based on patient's age to complete this topic Procedures Procedure Name Priority Date/Time Associated Diagnosis Comments MG MAMMO DIGITAL SCREENING W ONIEL BILAT Routine 08/08/2024 4:21 PM EST Screening mammogram, encounter for HEPATITIS C SCREENING Routine 09/15/2022 LIPID PANEL Routine 09/15/2022 DXA BONE DENSITY STUDY 1+ SITS AXIAL SKEL Routine 06/02/2021 4:10 PM EDT Encounter for screening for osteoporosis HM COLONOSCOPY Routine 09/11/2020 from Last 3 Months or Most Recently Relevant to Health Maintenance Results * MG Mammo Digital Screening w Oniel bilat (08/08/2024 4:21 PM EST) Anatomical Region Laterality Modality Breast Bilateral Mammography 08/09/2024 3:18 PM EST Impressions 08/09/2024 3:19 PM EST No mammographic evidence of malignancy. BREAST DENSITY: B - There are scattered areas of fibroglandular density. BI-RADS CATEGORY: 1 - NEGATIVE RECOMMENDATION: Screening bilateral mammogram is recommended in 1 year. MAMMO LOCATION: [facility], [address] [place] [address], [phone], . -------- FINAL REPORT -------- Dictated By: Domitila Joshua Dictated Date: 08/09/2024 15:18 ET Assigned Physician: Domitila Joshua Reviewed and Electronically Signed By: Domitila Joshua Signed Date: 08/09/2024 15:19 ET Workstation ID: [id number] Transcribed By: Self Edit Transcribed Date: 08/09/2024 15:18 ET Narrative 08/09/2024 3:19 PM EST EXAM: Screening Mammogram CLINICAL: 73 years old, Female, routine annual exam. COMPARISON: 07/03/2021 and 10/23/2019 TECHNIQUE: Bilateral MLO and CC views were obtained digitally with 3-D mammogram (digital breast tomosynthesis). Computer-aided detection was utilized in evaluation of this exam (CAD). FINDINGS: No new suspicious mass, architectural distortion, or suspicious calcifications. Procedure Note Domitila Joshua MD - 08/09/2024 EXAM: Screening Mammogram CLINICAL: 73 years old, Female, routine annual exam. COMPARISON: 07/03/2021 and 10/23/2019 TECHNIQUE: Bilateral MLO and CC views were obtained digitally with 3-Dmammogram (digital breast tomosynthesis). Computer-aided detection wasutilized in evaluation of this exam (CAD). FINDINGS: No new suspicious mass, architectural distortion, or suspiciouscalcifications. IMPRESSION: No mammographic evidence of malignancy. BREAST DENSITY: B - There are scattered areas of fibroglandular density. BI-RADS CATEGORY: 1 - NEGATIVE RECOMMENDATION: Screening bilateral mammogram is recommended in 1 year. MAMMO LOCATION: [facility], [address] [place] [address], [id number], . -------- FINAL REPORT -------- Dictated By: Domitila Joshua Dictated Date: 08/09/2024 15:18 ET Assigned Physician: Domitila Joshua Reviewed and Electronically Signed By: Domitila Joshua Signed Date: 08/09/2024 15:19 ET Workstation ID: [id number] Transcribed By: Self Edit Transcribed Date: 08/09/2024 15:18 ET Caitlyn Swanson NP IMG BI PROCEDURES Final Result * Hepatitis C Screening (09/15/2022) Pathologist [facility] Hepatitis C Screening Abstracted Historical Provider HEALTH MAINTENANCE Final Result * (ABNORMAL) Lipid panel (09/15/2022) LDL/HDL Ratio 5(A) 0 - 4 Triglycerides 109 0 - 150 mg/dL Cholesterol 265(A) 0 - 200 mg/dL HDL 58 >=40 mg/dL LDL Cholesterol 186(A) 0 - 100 mg/dL Blood Venous blood specimen / Unknown us Historical Provider LAB BLOOD ORDERABLES Edit ed Result - Final * DXA BONE DENSITY STUDY 1+ SITS AXIAL SKEL (06/02/2021 4:10 PM EDT) Anatomical Region Laterality Modality Bone Densitometr y 01/04/2021 10:3 3 AM EDT Narrative 06/04/2021 8:49 AM EDT BONE DENSITY ? Lumbar Spine T-score is -1.5 ?? (SD relative to 20-29 y/o adult) Z-score is +0.4 ??(SD relative to age matched peers) This is consistent with osteopenia by criteria defined by the WHO. Left Hip T-score is -2.2 Z-score is -0.4 This is consistent with osteopenia by criteria defined by the WHO. Comparison exam(s): significant increase in bone density of ??lumbar spine when compared to most recent bone density examination ?? Confidence level is +/-95%. Impression: Based on the World Health Organization criteria, Lucita Parekh should be classified as having osteopenia. This patient has a 17% risk of major osteoporotic fracture and a 3.2% risk of hip fracture over the next 10 years. (World Health Organization Fracture Risk Assessment) The [facility] Department of Internal Medicine recommends using National Osteoporosis Foundation (NOF) guidelines in treatment decisions related to osteoporosis. NOF guidelines suggest considering treatment for postmenopausal women and men aged 50 or older presenting with the following: History of hip or vertebral fracture. T-score less than or equal to -2.5 (DXA) at the femoral neck, total hip, or spine, after appropriate evaluation to exclude secondary causes. Low bone mass (T-score between -1.0 and -2.5 at the femoral neck or spine) AND a 10-year probability of a hip fracture greater than or equal to 3% OR a 10-year probability of a major osteoporosis-related fracture greater than or equal to 20% based on the [place]-adapted WHO algorithm Please note that all treatment decisions require clinical judgment and consideration of individual patient factors, including patient preferences, co-morbidities, previous drug use, risk factors not captured in the FRAX model (e.g., frailty, falls, vitamin D deficiency, increased bone turnover, interval significant decline in bone density) and possible under- or over-estimation of fracture risk by FRAX. Procedure Note Jazmyn Banuelos MD - 08/23/2022 BONE DENSITY Lumbar Spine T-score is -1.5 (SD relative to 20-29 y/o adult) Z-score is +0.4 (SD relative to age matched peers) This is consistent with osteopenia by criteria defined by the WHO. Left Hip T-score is -2.2 Z-score is -0.4 This is consistent with osteopenia by criteria defined by the WHO. Comparison exam(s): significant increase in bone density of lumbar spinewhen compared to most recent bone density examination Confidence level is +/-95%. Impression: Based on the World Health Organization criteria, Lucita Parekh should beclassified as having osteopenia. This patient has a 17% risk of majorosteoporotic fracture and a 3.2% risk of hip fracture over the next 10years. (World Health Organization Fracture Risk Assessment) [facility] Department of Internal Medicine recommendsusing National Osteoporosis Foundation (NOF) guidelines in treatmentdecisions related to osteoporosis. NOF guidelines suggest consideringtreatment for postmenopausal women and men aged 50 or older presentingwith the following: History of hip or vertebral fracture. T-score less than or equal to -2.5 (DXA) at the femoral neck, total hip,or spine, after appropriate evaluation to exclude secondary causes. Low bone mass (T-score between -1.0 and -2.5 at the femoral neck or spine)AND a 10-year probability of a hip fracture greater than or equal to 3% ORa 10-year probability of a major osteoporosis-related fracture greaterthan or equal to 20% based on the [place]-adapted WHO algorithm Please note that all treatment decisions require clinical judgment andconsideration of individual patient factors, including patientpreferences, co-morbidities, previous drug use, risk factors not capturedin the FRAX model (e.g., frailty, falls, vitamin D deficiency, increasedbone turnover, interval significant decline in bone density) and possibleunder- or over-estimation of fracture risk by FRAX. Ena Egan MD IMDebby DXA PROCEDURES Final Res ult * Colonoscopy (09/11/2020) Colonoscopy No interpretation , Abstracted Anatomical Region Laterality Modality Other Historical Provider HEALTH MAINTENANCE Final Result from Last 3 Months or Most Recently Relevant to Health Maintenance Insurance MEDICARE [facility] [address] [place] [address] Care Teams Technician Helper Instrument Relationship Specialty Start Date End Date Luca Thibodeaux MD [address] [place] [address] PCP - General Internal Medicine 01/10/22
--- OUTSIDE RECORDS SUMMARY | 2024-10-17 13:05 | XMS_ITS | Encounter Summary ---
Author Organization [facility] Address [address] [place] [address] Care Team Providers Care Can Line Examiner Name Role Phone Sally Stewart MD Primary Care Provider Luca Bolanos Primary Care Provider [phone] [facility], Pcp Primary Care Provider [facility] Encounter Details Date Type Department Care Team Description 07/19/2021 Orders Only Radiology - [place] [address] [place] [phone] Susan Hi PA-C [address] [place], [place] [phone] Screening for diabetes mellitus (Primary Dx) Social History Tobacco Use Types Packs/Day Years [...] on file documented as of this encounter Results * CREATININE, BLOOD ASSAY (07/20/2021 1:28 PM EST) CREAT 0.65 0.5 - 1.1 mg/dL 07/20/2021 7:09 PM EST [facility] GLOMERULAR FILTRATION RATE > 60 07/20/2021 7:09 PM EST [facility] Comment: If patient is -[place], multiply result by 1.21 Chronic Kidney Disease: < 60 ml/min/1.73 square meters Kidney Failure: < 15 ml/min/1.73 square meters 07/20/2021 1:28 PM EST 07/20/2021 1:29 PM EST Narrative [facility] - 07/20/2021 7:09 PM EST Release to patient->Immediate Susan Hi PA-C LAB [facility] documented in this encounter Visit Diagnoses Diagnosis Screening for diabetes mellitus- Primary Screening for diabetes mellitus documented in this encounter Care Teams Can Line Examiner Relationship Specialty Start Date End Date Sally Stewart MD PCP - General Internal Medicine 06/07/21 01/09/22 Luca Thibodeaux [address] [place] [address] PCP - General Internal Medicine 01/10/22 04/23/23 Sarbjit, Wolf [address] [place] [address] PCP - General Internal Medicine 04/24/23 documented as of this encounter
--- OUTSIDE RECORDS SUMMARY | 2024-10-17 13:05 | XMS_ITS | Encounter Summary ---
Author Organization [facility] Address [address] [place] [address] Care Team Providers Care Horticultural Specialty Grower Name Role Phone Sally Stewart MD Primary Care Provider Luca Bolanos Primary Care Provider [phone] [facility], Pcp Primary Care Provider [facility] Encounter Details Date Type Department Care Team Description 11/22/2021 Home Health Certification Medical Records [address] [place] [address] [place] [address] [place] [address] Social History Tobacco Use Types Packs/Day Years [...] have Coronavirus / COVID-19? No / Unsure 11/01/2021 9:01 AM EST documented as of this encounter Plan of Treatment Not on file documented as of this encounter Visit Diagnoses Not on filedocumented in this encounter Care Teams Horticultural Specialty Grower Relationship Specialty Start Date End Date Sally Stewart MD PCP - General Internal Medicine 06/07/21 01/09/22 Luca Thibodeaux [address] [place] [address] PCP - General Internal Medicine 01/10/22 04/23/23 [facility], Pcp [address] [place] [address] PCP - General Internal Medicine 04/24/23 documented as of this encounter
--- OUTSIDE RECORDS SUMMARY | 2024-10-17 13:05 | XMS_ITS | Encounter Summary ---
Author Organization [facility] Address [address] [place] [address] Care Team Providers Care Information Technology Project Manager Name Role Phone Sally Stewart MD Primary Care Provider Luca Bolanos Primary Care Provider [facility], Pcp Primary Care Provider [facility] Encounter Details Date Type Department Care Team Description 08/09/2021 Storage Facility Housekeeper Report Medical Records [address] [place] [id number] Brandt Correia MD Social History Tobacco Use [...] on filedocumented in this encounter Care Teams Information Technology Project Manager Relationship Specialty Start Date End Date Sally Stewart MD PCP - General Internal Medicine 06/07/21 01/09/22 Luca Thibodeaux [address] [place] [phone] PCP - General Internal Medicine 01/10/22 04/23/23 [facility], Pcp [address] [place] [id number] PCP - General Internal Medicine 04/24/23 documented as of this encounter
--- OUTSIDE RECORDS SUMMARY | 2024-10-17 13:05 | XMS_ITS | Encounter Summary ---
Author Organization [facility] Address [address] [place] [address] Care Team Providers Care Hand Cutter Apprentice Name Role Phone Ena Egan MD Primary Care Provider Travis Rg MD Primary Care Provider Sally Kim MD Primary Care Provider Luca Bolanos Primary Care Provider [phone] [facility], [facility] Primary Care Provider Unavailabl e Reason for Visit * Reason Onset Date Comments Call From Office 09/29/2017 Encounter Details Date Type Department Care Team Description 09/29/[address] [address] Ena Egan MD Call From Office Social History Tobacco Use Types Packs/Day Years [...] encounter Miscellaneous Notes * Telephone Encounter - Jazmyne Baez - 10/03/2017 3:16 PM EST Socorro is returning a call from Dr Mar, please call back at [phone] * Telephone Encounter - Lauren Hernandez MD - 10/02/2017 4:43 PM EST Attempted to return call to PT office. Got voice mail. * Telephone Encounter - Valery Webster M.A. - 10/02/2017 4:37 PM EST Pt seen And referred by Dr Mar NOT PCP referring dr should call PT * Telephone Encounter - Sean Argueta - 10/02/2017 10:46 AM EST Socorro form [facility] calling back. [facility] tried to call us but got a fax number instead. Please contact Socorro in regards to patient at [phone] * Telephone Encounter - Nicki SeguraMTamATam - 09/29/2017 4:21 PM EST Tried to call Socorro at [facility]. Lm for Socorro to call back * Telephone Encounter - Lauren Hernandez MD - 09/29/2017 4:13 PM EST She shuold discuss with her PCP Dr. Egan * Telephone Encounter - Lavern Coreas - 09/29/2017 2:44 PM EST Socorro from [facility], would like to have a conversation the Dr. Mar before the patient's appointment 10/03/17. documented in this encounter Plan of Treatment Not on file documented as of this encounter Visit Diagnoses Not on filedocumented in this encounter Care Teams Hand Cutter Apprentice Relationship Specialty Start Date End Date Ena Egan MD PCP - General Internal Medicine 08/03/11 02/17/21 Travis Hansen MD PCP - General Internal Medicine 02/18/21 06/06/21 Sally Stewart MD PCP - General Internal Medicine 06/07/21 01/09/22 Luca Thibodeaux [address] [place] [address] PCP - General Internal Medicine 01/10/22 04/23/23 [facility], [address] [address] PCP - General Internal Medicine 04/24/23 documented as of this encounter
--- OUTSIDE RECORDS SUMMARY | 2024-10-17 13:05 | XMS_ITS | Encounter Summary ---
Author Organization [facility] Address [address] [place] [address] Care Team Providers Care Extrusion Former Name Role Phone Ena Egan MD Primary Care Provider Travis Rg MD Primary Care Provider [facility] Sally Jasmine MD Primary Care Provider Luca Bolanos Primary Care Provider [phone] [facility], Pcp Primary Care Provider [facility] Encounter Details Date Type Department Care Team Description 02/23/2017 Telephone Adult [address] [address] Ena Egan MD Social History Tobacco Use Types Packs/Day [...] on filedocumented in this encounter Care Teams Extrusion Former Relationship Specialty Start Date End Date Ena Egan MD PCP - General Internal Medicine 08/03/11 02/17/21 Travis Hansen MD PCP - General Internal Medicine 02/18/21 06/06/21 Sally Stewart MD PCP - General Internal Medicine 06/07/21 01/09/22 Luca Thibodeaux [address] [place] [address] PCP - General Internal Medicine 01/10/22 04/23/23 [facility], Pcp [address] [place] [address] PCP - General Internal Medicine 04/24/23 documented as of this encounter
--- OUTSIDE RECORDS SUMMARY | 2024-10-17 13:05 | XMS_ITS | Encounter Summary ---
Author Organization [facility] Address [address] [place] [address] Care Team Providers Care Catcher Helper Name Role Phone Sally Stewart MD Primary Care Provider Luca Bolanos Primary Care Provider [phone] [facility], [facility] Primary Care Provider [facility] Encounter Details Date Type Department Care Team Description 09/16/2021 Orders Only Adult Medicine [address] [address] Sally Stewart MD Preoperative examination; Screening for deficiency anemia Social History Tobacco Use Types Packs/Day Years [...] as of this encounter Plan of Treatment Scheduled Orders Name Type Priority Associated Diagnoses Orde r Schedule BASIC METABOLIC PANEL Lab Routine Preoperative examination Expected: 09/16/2021 (Approximate), Expires: 09/16/2022 documented as of this encounter Results * (ABNORMAL) CBC (AUTO DIFF PLATELET) (09/15/2022 12:11 PM EST) Pathologist [facility] WHITE BLOOD COUNT 10.0 4.8 - 10.8 x10-3/uL 09/15/2022 3:41 PM EST [facility] RED BLOOD COUNT 4.9(H) 3.8 - 4.8 x10-6/uL 09/15/2022 3:41 PM EST [facility] Hemoglobin 14.1 11.5 - 16.0 g/dL 09/15/2022 3:41 PM EST [facility] Hematocrit 46.1 35 - 47 % 09/15/2022 3:41 PM EST [facility] MEAN CORPUSCULAR VOLUME 95.1 79 - 98 fL 09/15/2022 3:41 PM EST [facility] MEAN CORPUSCULAR HEMOGLOBIN 29.1 27 - 32 pg 09/15/2022 3:41 PM EST [facility] MEAN CORPUSCULAR HGB CONC 30.6(L) 32 - 37 g/dL 09/15/2022 3:41 PM EST [facility] RED CELL DISTRIBUTION WIDTH 13.3 11 - 15 % 09/15/2022 3:41 PM EST [facility] PLT COUNT 335 130 - 400 x10-3/uL 09/15/2022 3:41 PM EST [facility] MEAN PLATELET VOLUME 9.6 7 - 11 fL 09/15/2022 3:41 PM EST [facility] NRBC % AUTO 0.0 <1 % 09/15/2022 3:41 PM EST [facility] NEUTROPHILS % 52.4 % 09/15/2022 3:41 PM EST [facility] LYMPH % 37.2 % 09/15/2022 3:41 PM EST [facility] MONO % 7.9 % 09/15/2022 3:41 PM EST [facility] EOS % 1.3 % 09/15/2022 3:41 PM EST [facility] BASO % 0.7 % 09/15/2022 3:41 PM EST [facility] IMMATURE GRANULOCYTES % 0.5 % 09/15/2022 3:41 PM EST [facility] NRBC # AUTO 0.00 <0.1 x10-3/uL 09/15/2022 3:41 PM EST [facility] NEUT # 5.25 1.5 - 7.0 x10-3/uL 09/15/2022 3:41 PM EST [facility] LYMPH # 3.72 1 - 5.0 x10-3/uL 09/15/2022 3:41 PM EST [facility] MONO # 0.79 0.2 - 1.0 x10-3/uL 09/15/2022 3:41 PM EST [facility] EOS # 0.13 0 - 0.5 x10-3/uL 09/15/2022 3:41 PM EST [facility] BASO # 0.07 0 - 0.2 x10-3/uL 09/15/2022 3:41 PM EST [facility] IMMATURE GRANULOCYTES # 0.05(H) 0 - 0.03 x10-3/uL 09/15/2022 3:41 PM EST [facility] 09/15/2022 12:1 1 PM EST 09/15/2022 12:11 PM EST Narrative [facility] - 09/15/2022 3:41 PM EST Release to patient->Immediate Sally Stewart MD LAB [facility] documented in this encounter Visit Diagnoses Diagnosis Preoperative examination Preoperative examination, unspecified Screening for deficiency anemia Screening for other and unspecified deficiency anemia Atrial fibrillation, unspecified type (HCC) Ataxia Lack of coordination Anxiety and depression Dysthymic disorder Gastroesophageal reflux disease without esophagitis Esophageal reflux Obesity (BMI 35.0-39.9 without comorbidity) Obesity, unspecified Pure hypercholesterolemia Atrial fibrillation with RVR (HCC) Atrial fibrillation Preoperative examination Preoperative examination, unspecified Screening for deficiency anemia Screening for other and unspecified deficiency anemia Leukocytosis, unspecified type documented in this encounter Care Teams Catcher Helper Relationship Specialty Start Date End Date Sally Stewart MD PCP - General Internal Medicine 06/07/21 01/09/22 Luca Thibodeaux [address] [place] [address] PCP - General Internal Medicine 01/10/22 04/23/23 Wolf Schaffer [address] [place] [address] PCP - General Internal Medicine 04/24/23 documented as of this encounter
--- OUTSIDE RECORDS SUMMARY | 2024-10-17 13:05 | XMS_ITS | Encounter Summary ---
Author Organization [facility] Address [address] [place] [address] Care Team Providers Care Newspaper Press Operator Apprentice Name Role Phone Luca Thibodeaux Primary Care Provider [phone] [facility], Pcp Primary Care Provider [facility] Encounter Details Date Type Department Care Team Description 04/20/2022 Pt. Non Urgent Medical Question [facility] [address] [facility] [address] [place] [address] Lani Richey APRN Social History [...] suspected to have Coronavirus/COVID-19? No / Unsure 04/21/2022 3:45 PM EDT documented as of this encounter Plan of Treatment Not on file documented as of this encounter Visit Diagnoses Not on filedocumented in this encounter Care Teams Newspaper Press Operator Apprentice Relationship Specialty Start Date End Date Luca Thibodeaux [address] [place] [address] PCP - General Internal Medicine 01/10/22 04/23/23 [facility], Pcp [address] [place] [address] PCP - General Internal Medicine 04/24/23 documented as of this encounter
--- OUTSIDE RECORDS SUMMARY | 2024-10-17 13:05 | XMS_ITS | Encounter Summary ---
Author Organization [facility] Address [address] [place] [address] Care Team Providers Care Staking Press Operator Name Role Phone Sally Stewart MD Primary Care Provider Luca Bolanos Primary Care Provider [phone] [facility], Pcp Primary Care Provider [facility] Encounter Details Date Type Department Care Team Description 11/18/2021 Roads And Parking Lots Sweeper Operator Report Medical Records [address] [place] [address] Glory Ramey Social History Tobacco Use Types [...] on filedocumented in this encounter Care Teams Staking Press Operator Relationship Specialty Start Date End Date Sally Stewart MD PCP - General Internal Medicine 06/07/21 01/09/22 Luca Thibodeaux [address] [place] [id number] PCP - General Internal Medicine 01/10/22 04/23/23 [facility], Pcp [address] [place] [address] PCP - General Internal Medicine 04/24/23 documented as of this encounter
--- OUTSIDE RECORDS SUMMARY | 2024-10-17 13:05 | XMS_ITS | Encounter Summary ---
Author Organization [facility] Address [address] [place] [address] Care Team Providers Care Temperature Logging Operator Name Role Phone Ena Egan MD Primary Care Provider Travis Rg MD Primary Care Provider Unavail Sally Jasmine MD Primary Care Provider Luca Bolanos Primary Care Provider [phone] [facility] Pcp Primary Care Provider Christy weiss Encounter Details Date Type Department Care Team Description 08/05/2017 Hospital Medical Records [address] [place] [address] Social History Tobacco Use Types Packs/Day Years [...] on filedocumented in this encounter Care Teams Temperature Logging Operator Relationship Specialty Start Date End Date Ena Egan MD PCP - General Internal Medicine 08/03/11 02/17/21 Travis Hansen MD PCP - General Internal Medicine 02/18/21 06/06/21 Sally Stewart MD PCP - General Internal Medicine 06/07/21 01/09/22 Luca Thibodeaux [address] [place] [address] PCP - General Internal Medicine 01/10/22 04/23/23 [facility], Pcp [address] [place] [address] PCP - General Internal Medicine 04/24/23 documented as of this encounter
--- OUTSIDE RECORDS SUMMARY | 2024-10-17 13:05 | XMS_ITS | Encounter Summary ---
Author Organization [facility] Address [address] [place] [address] Care Team Providers Care Bar Turner Name Role Phone Ena Egan MD Primary Care Provider Travis Rg MD Primary Care Provider Unavail Sally Jasmine MD Primary Care Provider Luca Bolanos Primary Care Provider [phone] [facility] Pcp Primary Care Provider Christy weiss Encounter Details Date Type Department Care Team Description 10/09/2017 Business Doc Medical Records [address] [place] [id number] Abstract, Provider Social History Tobacco Use Types [...] on filedocumented in this encounter Care Teams Bar Turner Relationship Specialty Start Date End Date Ena Egan MD PCP - General Internal Medicine 08/03/11 02/17/21 Travis Hansen MD PCP - General Internal Medicine 02/18/21 06/06/21 Sally Stewart MD PCP - General Internal Medicine 06/07/21 01/09/22 Luca Thibodeaux [address] [place] [address] PCP - General Internal Medicine 01/10/22 04/23/23 [facility], Pcp [address] [place] [address] PCP - General Internal Medicine 04/24/23 documented as of this encounter
--- OUTSIDE RECORDS SUMMARY | 2024-10-17 13:05 | XMS_ITS | Encounter Summary ---
Author Organization [facility] Address [address] [place] [address] Care Team Providers Care Tactical Response Group Officer Name Role Phone Saira Valencia MD Primary Care Provider [phone] Ayan Correia MD Primary Care Provider Unavail Ena Iniguez MD Primary Care Provider Travis Rg MD Primary Care Provider Unavailab Sally Jasmine MD Primary Care Provider Luca Bolanos Primary Care Provider [phone] [facility], Pcp Primary Care Provider Unavailabl e Reason for Visit * Reason Comments other Encounter Details Date Type Department Care Team Description 05/15/2001 Telephone Adult Medicine [address] [phone] Sydney Gilmore MD [address] [place] [address] [phone] other Social History Tobacco Use Types Packs/Day Years Used Date Smoking Tobacco: Never Assessed Sex Assigned at Date Recorded Not on file Job Start Date Occupation Industry Not on file Not on file Not on file documented as of this encounter Miscellaneous Notes * Telephone Encounter - 05/16/2001 12:56 PM EDTReferral completed and sent to [facility] for processing. * Telephone Encounter - 05/15/2001 4:21 PM EDTCALL RECEIVED. Contact: PATIENT [phone] PT WAS SEEN ON 04/26 FOR ABD PAIN AND YOU WHERE GOING TO SEND DOWN A REFERRAL TO DR REYES FOR CONSULT OR SIGMOID PLEASE RE DO documented in this encounter Plan of Treatment Not on file documented as of this encounter Visit Diagnoses Not on filedocumented in this encounter Care Teams Tactical Response Group Officer Relationship Specialty Start Date End Date Saira Valencia MD [address] [place], [place] [id number] PCP - General 08/18/09 08/02/11 Ayan Correia MD PCP - General 07/04/1999 08/17/09 Ena Egan MD PCP - General Internal Medicine 08/03/11 02/17/21 Travis Hansen MD PCP - General Internal Medicine 02/18/21 06/06/21 Sally Stewart MD PCP - General Internal Medicine 06/07/21 01/09/22 Luca Thibodeaux [address] [place] [address] PCP - General Internal Medicine 01/10/22 04/23/23 [facility], Pcp [address] [place] [address] PCP - General Internal Medicine 04/24/23 documented as of this encounter
--- OUTSIDE RECORDS SUMMARY | 2024-10-17 13:05 | XMS_ITS | Encounter Summary ---
Author Organization [facility] Address [address] [place] [address] Care Team Providers Care Emergency Vehicle Dispatcher Name Role Phone Ena Egan MD Primary Care Provider Travis Rg MD Primary Care Provider Unavail Sally Jasmine MD Primary Care Provider Luca Bolanos Primary Care Provider [phone] [facility] Pcp Primary Care Provider Christy weiss Encounter Details Date Type Department Care Team Description 08/26/2016 Business Doc Medical Records [address] [place] [address] Abstract, Provider Social History Tobacco Use Types [...] on filedocumented in this encounter Care Teams Emergency Vehicle Dispatcher Relationship Specialty Start Date End Date Ena Egan MD PCP - General Internal Medicine 08/03/11 02/17/21 Travis Hansen MD PCP - General Internal Medicine 02/18/21 06/06/21 Sally Stewart MD PCP - General Internal Medicine 06/07/21 01/09/22 Luca Thibodeaux [address] [place] [address] PCP - General Internal Medicine 01/10/22 04/23/23 [facility], Pcp [address] [place] [address] PCP - General Internal Medicine 04/24/23 documented as of this encounter
--- NOTE | 2024-10-17 13:06 | MHC.OFFVIS ---
Vital Signs 10/17/24 13:07 Height 5 ft 6 in Weight 181 lb BMI 29.2 Intake Visit Reasons: OV- f/u posterior aspect of LT knee Intake Note: Lucita is a 73 year old female who presents today for follow up of her left knee. She was last seen on 02/19/24. Her left knee was last injected on 05/23/24. Patient reports that she is having increasing pain of the left knee. Her pain is felt in the posterior aspect of the knee, and a sharp pain in the anterior aspect of the knee. She takes Tylenol arthritis which does help her. Allergies No Known Allergies [No Known Allergies*] Allergy (Verified 09/03/24 09:35) HPI HPI OV- f/u posterior aspect of LT knee: Details: Lucita is a 73 year old female who presents today for follow up of her left knee. She was last seen on 02/19/24. Her left knee was last injected on 05/23/24. Patient reports that she is having increasing pain of the left knee. Her pain is felt in the posterior aspect of the knee, and a sharp pain in the anterior aspect of the knee. She takes Tylenol arthritis which does help her. She has a successful right TKA ~ 3 years ago. She if frustrated now because she uses a cane and cannot engage in walking or daily activities without left knee pain. She has tried to avoid surgery but feels that there are no good remaining options. [facility] Medical History (Updated 09/03/24 @ 10:07 by Stephanie Verma MD) Gait apraxia Arthritis of left knee Gait disturbance HTN (hypertension) Osteoarthritis IBS (irritable bowel syndrome) Major depression, recurrent, chronic Vitamin D deficiency Abnormal gait Pure hypercholesterolemia Severe major depression without psychotic features Hx of basal cell carcinoma Osteopenia Paroxysmal atrial fibrillation Surgical History History of esophagogastroduodenoscopy (EGD) Hx of colonoscopy Hx of breast biopsy Hx of hysterectomy Hx of appendectomy Family History Father No problems noted. Mother No problems noted. Social History Are you a primary anesthesiologist and critical care to a significant other at home: No Do you presently have visiting nurse or other home services: Yes (GRAPPLE OPERATOR 4 hours per week) Comment: aware of trip hazard Patient Tobacco Use Status: Former Tobacco user Tobacco use type: Cigarette Advance Directives Date on File: 11/11/21 service: No Current occupational status: retired Current occupation: rt handed Physical Exam Vital Signs: BMI result Body Mass Index 29.2 Extrem Other: 5-125 deg of motion with mild varus alignement. TTP medial joint line and small palpable Thompson's cyst. Results Reviewed Results Reviewed: I personally reviewed relevant radiographs. There is loss of left medial joint space with sclerosis and ostepohbytes consistent with severe medial compartment osteoarthritis. Assessment & Plan Assessment & Plan (1) Osteoarthritis of left knee: Code(s): M17.12 - Unilateral primary osteoarthritis, left knee Category: Medical Plan: This is a pleasant and active 73 yo with long-standing left knee osteoarthritis that has been refractory to conservative management. This includes injections, assistive device (cane), non narcotic pain medicine, activity modification. She would like to be able to walk without a cane. She feels the quality of her life is diminished. She did very well after a right TKA in 2021 and I recommend left TKA. I discussed the risks benefits and alternatives including but not limited to the risk of pain, infection, stiffness, need for further surgery as well as potential medical complications such as blood clots, pulmonary embolism and cardiac complications. She understands these risks and would like to proceed forward. I will have her speak with our Nurse Navigator and we will obtain medical clearance. She is on [employer] for A-fib. Coding Level of Care Code Est Pt Level 4 (70882) Diagnoses Osteoarthritis of left knee M17.12
--- OUTSIDE RECORDS SUMMARY | 2024-10-17 13:06 | XMS_ITS | Encounter Summary ---
Author Organization [facility] Address [address] [place] [address] Care Team Providers Care Game Farm Supervisor Name Role Phone Ena Egan MD Primary Care Provider Travis Rg MD Primary Care Provider Unavail Sally Jasmine MD Primary Care Provider Luca Bolanos Primary Care Provider [phone] [facility] Pcp Primary Care Provider Christy weiss Encounter Details Date Type Department Care Team Description 11/01/2016 Hospital Medical Records [address] [place] [id number] Timothy Jose Social History Tobacco Use Types Packs/Day Years [...] on filedocumented in this encounter Care Teams Game Farm Supervisor Relationship Specialty Start Date End Date Ena Egan MD PCP - General Internal Medicine 08/03/11 02/17/21 Travis Hansen MD PCP - General Internal Medicine 02/18/21 06/06/21 Sally Stewart MD PCP - General Internal Medicine 06/07/21 01/09/22 Luca Thibodeaux [address] [place] [address] PCP - General Internal Medicine 01/10/22 04/23/23 [facility], Pcp [address] [place] [address] PCP - General Internal Medicine 04/24/23 documented as of this encounter
--- OUTSIDE RECORDS SUMMARY | 2024-10-17 13:06 | XMS_ITS | Encounter Summary ---
Author Organization [facility] Address [address] [place] [address] Care Team Providers Care Coffee Urn Attendant Name Role Phone Ena Egan MD Primary Care Provider Travis Rg MD Primary Care Provider Unavail Sally Jasmine MD Primary Care Provider Luca Bolanos Primary Care Provider [phone] [facility] Pcp Primary Care Provider Unavaildawn Encounter Details Date Type Department Care Team Description 10/06/2016 Cutter Barrel Drum Report Medical Records [address] [place] [address] Caleb Diaz MD Social History Tobacco Use Types Packs/Day [...] on filedocumented in this encounter Care Teams Coffee Urn Attendant Relationship Specialty Start Date End Date Ena Egan MD PCP - General Internal Medicine 08/03/11 02/17/21 Travis Hansen MD PCP - General Internal Medicine 02/18/21 06/06/21 Sally Stewart MD PCP - General Internal Medicine 06/07/21 01/09/22 Luca Thibodeaux [address] [place] [address] PCP - General Internal Medicine 01/10/22 04/23/23 [facility], Pcp [address] [place] [address] PCP - General Internal Medicine 04/24/23 documented as of this encounter
--- OUTSIDE RECORDS SUMMARY | 2024-10-17 13:06 | XMS_ITS | Encounter Summary ---
Author Organization [facility] Address [address] [place] [address] Care Team Providers Care Skip Hoist Engineer Name Role Phone Ena Egan MD Primary Care Provider Travis Rg MD Primary Care Provider Unavail Sally Jasmine MD Primary Care Provider Luca Bolanos Primary Care Provider [phone] [facility] Pcp Primary Care Provider Christy weiss Encounter Details Date Type Department Care Team Description 09/19/2016 Hospital Medical Records [address] Social History Tobacco Use Types Packs/Day Years [...] on filedocumented in this encounter Care Teams Skip Hoist Engineer Relationship Specialty Start Date End Date Ena Egan MD PCP - General Internal Medicine 08/03/11 02/17/21 Travis Hansen MD PCP - General Internal Medicine 02/18/21 06/06/21 Sally Stewart MD PCP - General Internal Medicine 06/07/21 01/09/22 Luca Thibodeaux [address] [place] [address] PCP - General Internal Medicine 01/10/22 04/23/23 [facility], Pcp [address] [place] [address] PCP - General Internal Medicine 04/24/23 documented as of this encounter
--- OUTSIDE RECORDS SUMMARY | 2024-10-17 13:06 | XMS_ITS | Encounter Summary ---
Author Organization [facility] Address [address] [place] [address] Care Team Providers Care Lotus Notes Administrator Name Role Phone Ena Egan MD Primary Care Provider Travis Rg MD Primary Care Provider Unavail Sally Jasmine MD Primary Care Provider Luca Bolanos Primary Care Provider [phone] [facility], Pcp Primary Care Provider Unavaildawn weiss Encounter Details Date Type Department Care Team Description 04/11/2016 GENERATION ENGINEERING TECHNOLOGIST/MassPat Report Medical Records [address] [place] [id number] Abstract, Provider Social History Tobacco Use Types [...] on filedocumented in this encounter Care Teams Lotus Notes Administrator Relationship Specialty Start Date End Date Ena Egan MD PCP - General Internal Medicine 08/03/11 02/17/21 Travis Hansen MD PCP - General Internal Medicine 02/18/21 06/06/21 Sally Stewart MD PCP - General Internal Medicine 06/07/21 01/09/22 Luca Thibodeaux [address] [place] [address] PCP - General Internal Medicine 01/10/22 04/23/23 [facility], Pcp [address] [place] [address] PCP - General Internal Medicine 04/24/23 documented as of this encounter
--- OUTSIDE RECORDS SUMMARY | 2024-10-17 13:06 | XMS_ITS | Encounter Summary ---
Author Organization [facility] Address [address] [place] [address] Care Team Providers Care Gyn Name Role Phone Ena Egan MD Primary Care Provider Travis Rg MD Primary Care Provider Unavail Sally Jasmine MD Primary Care Provider Luca Bolanos Primary Care Provider [phone] [facility], Pcp Primary Care Provider Christy weiss Encounter Details Date Type Department Care Team Description 09/29/2016 Release of Information Medical Records [address] [place] [address] Abstract, Provider Social History Tobacco Use Types [...] on filedocumented in this encounter Care Teams Gyn Relationship Specialty Start Date End Date Ena Egan MD PCP - General Internal Medicine 08/03/11 02/17/21 Travis Hansen MD PCP - General Internal Medicine 02/18/21 06/06/21 Sally Stewart MD PCP - General Internal Medicine 06/07/21 01/09/22 Luca Thibodeaux [address] [place] [address] PCP - General Internal Medicine 01/10/22 04/23/23 [facility], Pcp [address] [place] [address] PCP - General Internal Medicine 04/24/23 documented as of this encounter
--- OUTSIDE RECORDS SUMMARY | 2024-10-17 13:06 | XMS_ITS | Encounter Summary ---
Author Organization [facility] Address [address] [place] [address] Care Team Providers Care Oracle Obiee Developer Name Role Phone Ena Egan MD Primary Care Provider Travis Rg MD Primary Care Provider Unavail Sally Jasmine MD Primary Care Provider Luca Bolanos Primary Care Provider [phone] [facility], Pcp Primary Care Provider Christy Encounter Details Date Type Department Care Team Description 11/02/2016 Hospital Medical Records [address] [place] [address] Colby Oliva [address] [place] [address] Social History Tobacco Use Types Packs/Day Years [...] on filedocumented in this encounter Care Teams Oracle Obiee Developer Relationship Specialty Start Date End Date Ena Egan MD PCP - General Internal Medicine 08/03/11 02/17/21 Travis Hansen MD PCP - General Internal Medicine 02/18/21 06/06/21 Sally Stewart MD PCP - General Internal Medicine 06/07/21 01/09/22 Luca Thibodeaux [address] [place] [address] PCP - General Internal Medicine 01/10/22 04/23/23 [facility], Wolf [address] [place] [address] PCP - General Internal Medicine 04/24/23 documented as of this encounter
--- OUTSIDE RECORDS SUMMARY | 2024-10-17 13:06 | XMS_ITS | Encounter Summary ---
Author Organization [facility] Address [address] [place] [address] Care Team Providers Care Dermatology Technician Name Role Phone Ena Egan MD Primary Care Provider Travis Rg MD Primary Care Provider Unavail Sally Jasmine MD Primary Care Provider Luca Bolanos Primary Care Provider [phone] [facility] Pcp Primary Care Provider Christy weiss Encounter Details Date Type Department Care Team Description 09/14/2016 Hospital Medical Records [address] Social History Tobacco Use Types Packs/Day [...] on filedocumented in this encounter Care Teams Dermatology Technician Relationship Specialty Start Date End Date Ena Egan MD PCP - General Internal Medicine 08/03/11 02/17/21 Travis Hansen MD PCP - General Internal Medicine 02/18/21 06/06/21 Sally Stewart MD PCP - General Internal Medicine 06/07/21 01/09/22 Luca Thibodeaux [address] [place] [id number] PCP - General Internal Medicine 01/10/22 04/23/23 Pending Sale To [facility], Pcp [address] [place] [id number] PCP - General Internal Medicine 04/24/23 documented as of this encounter
--- OUTSIDE RECORDS SUMMARY | 2024-10-17 13:06 | XMS_ITS | Encounter Summary ---
Author Organization [facility] Address [address] [place] [address] Care Team Providers Care City Dispatcher Name Role Phone Ena Egan MD Primary Care Provider Travis Rg MD Primary Care Provider Unavail Sally Jasmine MD Primary Care Provider Luca Bolanos Primary Care Provider [phone] [facility], Pcp Primary Care Provider Unavaildawn weiss Encounter Details Date Type Department Care Team Description 10/27/2014 POTTERY DECORATION DESIGNER/[facility] Report Medical Records [address] [place] [id number] Abstract, Provider Social History Tobacco Use Types [...] on filedocumented in this encounter Care Teams City Dispatcher Relationship Specialty Start Date End Date Ena Egan MD PCP - General Internal Medicine 08/03/11 02/17/21 Travis Hansen MD PCP - General Internal Medicine 02/18/21 06/06/21 Sally Stewart MD PCP - General Internal Medicine 06/07/21 01/09/22 Luca Thibodeaux [address] [place] [id number] PCP - General Internal Medicine 01/10/22 04/23/23 [facility], Pcp [address] [place] [id number] PCP - General Internal Medicine 04/24/23 documented as of this encounter
[2024-10-17 13:07] VITALS: BMI 29.2
== END 2024-10-17 13:39 | disposition home or self-care (01) ==
PROVIDERS: PCP Nurse Practitioner Family; Visit Provider Orthopaedic Surgery
DX: M17.12 Unilateral primary osteoarthritis, left knee (principal)
CPT/HCPCS: 99214

== ENCOUNTER → 2024-10-17 12:57 | Outpatient (BNVA) | payer MEDICARE, OTHER, SELFPAY | PROVIDERS: PCP Nurse Practitioner Family; Visit Provider Orthopaedic Surgery | DX: M17.12 Unilateral primary osteoarthritis, left knee (principal) | CPT/HCPCS: 99212 ==

== ENCOUNTER 2024-10-31 13:40 | Outpatient (REF) | payer MEDICARE, OTHER, SELFPAY ==
[2024-10-31 14:39] LABS: Hematocrit 45.5 % (37.0-47.0); Hemoglobin 14.9 g/dl (12.0-16.0); Mean Corpuscular HGB Conc 32.7 g/dl (31.0-35.0); Mean Corpuscular Hemoglobin 31.3 pg (27.0-33.0); Mean Corpuscular Volume 95.6 fL (80.0-98.0); Mean Platelet Volume 9.2 fL (9.4-12.3); Platelet Count 296 X10*3/uL (160-400); Red Blood Count 4.76 X10*6/uL (4.20-5.50); White Blood Count 9.6 X10*3/uL (4.8-10.8)
[2024-10-31 15:06] LABS: Anion Gap 10 (12-20); Blood Urea Nitrogen 22 mg/dL (9-16); Carbon Dioxide 26 mmol/L (22-29); Chloride 108 mmol/L (96-108); Estimated Glomerular Filt Rate > 60; Glucose Random 100 mg/dL (60-115); Potassium 4.3 mmol/L (3.3-5.1); Sodium 140 mmol/L (135-145)
--- OUTSIDE RECORDS SUMMARY | 2024-10-31 16:30 | XMS_ITS | Clinical Summary ---
Author Organization [facility] Address [address] [place] [address] Care Team Providers Care Aircraft Rigging And Controls Mechanic Name Role Phone Caitlyn Swanson MIKEY Primary Care Provider Source Comments PLEASE NOTE, if this patient [...] Tablet by mouth daily. 90 Tablet 3 4 Active dextroamphetamine- amphetamine (ADDERALL XR) 10 mg 24 hr capsuleIndications :Attention deficit hyperactivity disorder (ADHD), predominantly inattentive type TAKE 1 CAPSULE BY MOUTH ONCE A DAY IN THE MORNING 90 Capsule 4 Active melatonin 3 mg tabletIndications: Adjustment insomnia Take 1 Tablet by mouth nightly at bedtime as needed for sleep 90 Tablet 4 4 Active solifenacin (VESICARE) 10 mg tablet TAKE 1 TABLET BY MOUTH ONCE A DAY 90 Tablet 4 4 Active fluconazole (DIFLUCAN) 150 mg tabletIndications: Monial infection of vagina Take 1 Tablet by mouth every 3 (three) days 3 Tablet 5 Active venlafaxine XR (EFFEXOR XR) 150 mg 24 hr capsuleIndications :Major depression, recurrent, chronic (HCC-CMS) Take 1 Capsule by mouth once daily with breakfast 90 Capsule 1 5 Active prazosin (MINIPRESS) 5 mg capsuleIndications :Major depression, recurrent, chronic (HCC-CMS) Take 1 Capsule by mouth nightly at bedtime 90 Capsule 3 5 Active atorvastatin (LIPITOR) 20 mg tabletIndications: Mixed hyperlipidemia Take 1 Tablet by mouth once daily 90 Tablet 4 5 Active gabapentin (NEURONTIN) 300 mg capsuleIndications :Anxiety,Spinal stenosis of lumbar region, unspecified whether neurogenic claudication present Take 1 Capsule by mouth nightly at bedtime 90 Capsule 4 5 Active metoprolol succinate XL (TOPROL-XL) 50 mg 24 hr tabletIndications: Chronic atrial fibrillation (HCC-CMS) Take 1 Tablet by mouth nightly at bedtime 90 Tablet 4 5 Active apixaban (ELIQUIS) 5 mg tabIndications:Chr onic atrial fibrillation (HCC-CMS) Take 1 Tablet by mouth 2 (two) times a day 180 Tablet 4 5 Active clonazePAM (KLONOPIN) 1 mg tabletIndications: Major depression, recurrent, chronic (HCC-CMS) Take 1 Tablet by mouth nightly at bedtime 5 Active busPIRone (BUSPAR) 7.5 mg tabletIndications: Situational anxiety Take 1 Tablet by mouth 3 (three) times daily 90 Tablet 1 5 Active Active Problems Problem Noted Date Diagnosed [...] 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 (HCC-CMS) 02/09/2018 Overview (09/19/2024): 06/11/2024 PHQ-9 Total Score [...] Date Resolved Date Major depression, recurrent, chronic (HCC-CMS) 12/23/2013 06/08/2023 Overview (07/01/2022): [place] admission 09/2016, 05/2017, [facility] Admission 08/2017 - intentional overdose hx x2 , ECT therapy 05/2017, outside psychiatric care Dr Barry Encounters Date Type Department Care Team Description 09/24/2024 8:20 AM EST Office Visit [facility] [address] [place] [phone] Lani Sanz PA-C Black stool (Primary Dx); Viral gastroenteritis 09/19/2024 2:40 PM EST Office Visit [facility] [address] [place] [phone] Cailtyn Swanson CFNP Chronic atrial fibrillation (HCC-CMS) (Primary Dx); Major depression, recurrent, chronic (HCC-CMS); Severe major depression without psychotic features (HCC-CMS) 08/22/2024 3:00 PM EST Office Visit [facility] [address] [place] [phone] Caitlyn Swanson CFNP Major depression, recurrent, chronic (HCC-CMS) (Primary Dx); Severe major depression without psychotic features (HCC-CMS) 08/07/2024 11:00 AM EST / Visits [address] [phone] Ghada Rothman MD from Last 3 Months Immunizations Name Administration [...] history exists Imm-Pneumococcal 65+ Completed 02/10/2018, 08/16/20 Imm-Zoster, Recombinant Completed 05/03/2022, 07/10 Hepatitis C Screening Completed 06/08/2023 [id number] Completed 06/11/2024, 06/04, 05/30/2021, Additional history exists Imm-Influenza Completed 06/11/2024, 06/04, 08/22/2022, Additional history exists Procedures Procedure Name Priority Date/Time Associated Diagnosis Comments MEDICATIONS SCANNED DOCUMENT 10/16/2024 3:00 AM EST COMPREHENSIVE METABOLIC PANEL Routine 09/24/2024 9:44 AM [...] Recently Relevant to Health Maintenance Results * MEDICATIONS SCANNED DOCUMENT (10/16/2024 3:00 AM EST) 10/16/2024 3:00 AM EST [id number] SCAN MEDS OTHER ORDER S Final Result * (ABNORMAL) BLOOD COUNT COMPLETE AUTOMATED (09/24/2024 9:44 AM EST) WHITE BLOOD CELL COUNT 8.9 3.8 - 10.8 Thousand/ uL 09/24/2024 8:21 PM EST [facility] RED BLOOD CELL COUNT 4.91 3.80 - 5.10 Million/u L 09/24/2024 8:21 PM EST [facility] HEMOGLOBIN 15.3 11.7 - 15.5 g/dL 09/24/2024 8:21 PM EST [facility] HEMATOCRIT 46.6(H) 35.0 - 45.0 % 09/24/2024 8:21 PM EST [facility] MCV 94.9 80.0 - 100.0 fL 09/24/2024 8:21 PM EST [facility] MCH 31.2 27.0 - 33.0 pg 09/24/2024 8:21 PM EST [facility] MCHC 32.8 32.0 - 36.0 g/dL 09/24/2024 8:21 PM EST [facility] RDW 11.8 11.0 - 15.0 % 09/24/2024 8:21 PM EST [facility] PLATELET COUNT 290 140 - 400 Thousand/ uL 09/24/2024 8:21 PM EST [facility] MPV 9.8 7.5 - 12.5 fL 09/24/2024 8:21 PM EST [facility] Blood Blood / Unknown 09/24/2024 9 :44 AM EST 09/24/2024 4:58 PM EST [facility] - 09/24/2024 8:30 PM EST FASTING:YES For adults, a slight decrease in the calculated MCHC value (in the range of 30 to 32 g/dL) is most likely not clinically significant; however, it should be interpreted with caution in correlation with other red cell parameters and the patient's clinical condition. Lani Sanz PA-C LAB - BLOOD DRAW Final Resul t [facility] [address] [address], [employer] [address] [place] [address] * (ABNORMAL) COMPREHENSIVE METABOLIC PANEL (09/24/2024 9:44 AM EST) Only the most recent of2 resultswithin the time period is included. GLUCOSE 105(H) 65 - 99 mg/dL 09/24/2024 6:49 PM EST [facility] UREA NITROGEN (BUN) 15 7 - 25 mg/dL 09/24/2024 6:49 PM EST [facility] CREATININE (blood) 0.77 0.60 - 1.00 mg/dL 09/24/2024 6:49 PM EST [facility] EGFR 81 > OR = 60 mL/min/1. 73m2 09/24/2024 6:49 PM EST [facility] BUN/CREATININE RATIO SEE NOTE: 6 (calc) 09/24/2024 6:49 PM EST [facility] SODIUM 136 135 - 146 mmol/L 09/24/2024 6:49 PM EST [facility] [place] [employer] POTASSIUM 4.3 3.5 - 5.3 mmol/L 09/24/2024 6:49 PM EST [employer] [place] [employer] CHLORIDE 101 98 - 110 mmol/L 09/24/2024 6:49 PM [employer] [facility] CARBON DIOXIDE 28 20 - 32 mmol/L 09/24/2024 6:49 PM EST [facility] CALCIUM 10.1 8.6 - 10.4 mg/dL 09/24/2024 6:49 PM EST [employer] [employer] [facility] PROTEIN, TOTAL 6.7 6.1 - 8.1 g/dL 09/24/2024 6:49 PM EST [employer] [facility] ALBUMIN 4.3 3.6 - 5.1 g/dL 09/24/2024 6:49 PM EST [facility] GLOBULIN 2.4 1.9 - 3.7 g/dL (calc) 09/24/2024 6:49 PM EST [facility] ALBUMIN/GLOBULI N RATIO 1.8 1.0 - 2.5 (calc) 09/24/2024 6:49 PM EST [employer] [facility] BILIRUBIN, TOTAL 0.4 0.2 - 1.2 mg/dL 09/24/2024 6:49 PM EST [employer] [facility] ALKALINE PHOSPHATASE 82 37 - 153 U/L 09/24/2024 6:49 PM EST [facility] AST 15 10 - 35 U/L 09/24/2024 6:49 PM EST [employer] [facility] ALT 12 6 - 29 U/L 09/24/2024 6:49 PM EST [employer] [facility] Blood Blood / Unknown 09/24/2024 9 :44 AM EST 09/24/2024 4:49 PM EST Narrative [employer] [facility] - 09/24/2024 6:59 PM EST FASTING:YES . ? Fasting reference interval . For someone without known diabetes, a glucose value between 100 and 125 mg/dL is consistent with prediabetes and should be confirmed with a follow-up test. . ?? Not Reported: BUN and Creatinine are within ?? reference range. . us Lani Sanz PA-C LAB - BLOOD DRAW Final Resul t [employer] [facility] [address] [address], [employer] [address] [address] * (ABNORMAL) HEMOCUE HEMOGLOBIN (POCT) (09/24/2024 9:14 AM EST) HEMOGLOBIN 15.3(A) 12 - 15 g/dL [facility] Blood Blood / Unknown 09/24/2024 9 :14 AM EST us Lani Sanz PA-C LAB - BLOOD DRAW Final Resul t [facility] [address] [place] [address], * VITAMIN B12 & FOLATE (09/19/2024 2:00 PM EST) VITAMIN B12 622 200 - 1,100 pg/mL 09/20/2024 3:31 AM EST [facility] FOLATE, SERUM 8.1 ng/mL 09/20/2024 3:31 AM EST [facility] Blood Blood / Unknown 09/19/2024 2 :00 PM EST 09/20/2024 2:42 AM EST [facility] - 09/20/2024 3:37 AM EST FASTING:YES ? Reference Range ? Low: ? <3.4 ? Borderline: ?3.4-5.4 ? Normal: ?>5.4 . Caitlyn Swanson [facility] LAB - BLOOD DRAW Final Resul t [employer] [address] [address], [facility] [address] [place] [address] * (ABNORMAL) BLOOD COUNT COMPLETE AUTO&AUTO DIFRNTL WBC (09/19/2024 2:00 PM EST) WHITE BLOOD CELL COUNT 11.6(H) 3.8 - 10.8 Thousand/ uL 09/20/2024 2:24 AM EST [facility] RED BLOOD CELL COUNT 4.66 3.80 - 5.10 Million/u L 09/20/2024 2:24 AM EST [facility] HEMOGLOBIN 14.5 11.7 - 15.5 g/dL 09/20/2024 2:24 AM EST [facility] HEMATOCRIT 44.8 35.0 - 45.0 % 09/20/2024 2:24 AM EST [facility] MCV 96.1 80.0 - 100.0 fL 09/20/2024 2:24 AM EST [facility] MCH 31.1 27.0 - 33.0 pg 09/20/2024 2:24 AM EST [facility] MCHC 32.4 32.0 - 36.0 g/dL 09/20/2024 2:24 AM EST [facility] RDW 11.8 11.0 - 15.0 % 09/20/2024 2:24 AM EST [employer] [facility] PLATELET COUNT 349 140 - 400 Thousand/ uL 09/20/2024 2:24 AM EST [employer] [facility] MPV 9.7 7.5 - 12.5 fL 09/20/2024 2:24 AM EST [facility] ABSOLUTE NEUTROPHILS 6,392 1,500 - 7,800 cells/uL 09/20/2024 2:24 AM EST [employer] [facility] ABSOLUTE LYMPHOCYTES 4,141(H) 850 - 3,900 cells/uL 09/20/2024 2:24 AM EST [employer] [facility] ABSOLUTE MONOCYTES 940 200 - 950 cells/uL 09/20/2024 2:24 AM EST [employer] [facility] ABSOLUTE EOSINOPHILS 81 15 - 500 cells/uL 09/20/2024 2:24 AM EST [employer] [facility] ABSOLUTE BASOPHILS 46 0 - 200 cells/uL 09/20/2024 2:24 AM EST [facility] NEUTROPHILS PCT 55.1 % 2:24 AM EST [employer] [facility] LYMPHOCYTES 35.7 % 09/20/2024 2:24 AM EST [employer] [facility] MONOCYTES 8.1 % 09/20/2024 2:24 AM EST [facility] EOSINOPHILS 0.7 % 09/20/2024 2:24 AM EST [facility] BASOPHILS 0.4 % 09/20/2024 2:24 AM EST [employer] [facility] Blood Blood / Unknown 09/19/2024 2 :00 PM EST 09/20/2024 1:44 AM EST Narrative [employer] [facility] - 09/20/2024 2:31 AM EST FASTING:YES For adults, a slight decrease in the calculated MCHC value (in the range of 30 to 32 g/dL) is most likely not clinically significant; however, it should be interpreted with caution in correlation with other red cell parameters and the patient's clinical condition. Caitlyn Swanson [facility] LAB - BLOOD DRAW Final Resul t Performing Organization Address [facility] Co de Phone Number [employer] [address] [address], [employer] [address] [address] * LIPID PANEL (09/19/2024 2:00 PM EST) CHOLESTEROL, TOTAL 161 <200 mg/dL 09/20/2024 4:30 AM EST [employer] [facility] HDL CHOLESTEROL 62 > OR = 50 mg/dL 09/20/2024 4:30 AM EST [facility] TRIGLYCERIDES 70 <150 mg/dL 09/20/2024 4:30 AM EST [employer] [facility] LDL-CHOLESTEROL 84 mg/dL (calc) 09/20/2024 4:30 AM EST [facility] CHOL/HDLC RATIO 2.6 <5.0 (calc) 09/20/2024 4:30 AM EST [facility] NON-HDL CHOLESTEROL 99 <130 mg/dL (calc) 09/20/2024 4:30 AM EST [facility] Blood Blood / Unknown 09/19/2024 2 :00 PM EST 09/20/2024 2:42 AM EST [facility] - 09/20/2024 4:33 AM EST FASTING:YES Reference range: <100 . Desirable range <100 mg/dL for primary prevention; ?? <70 mg/dL for patients with CHD or diabetic patients with > or = 2 CHD risk factors. . LDL-C is now calculated using the Ata-Ra calculation, which is a validated novel method providing better accuracy than the Friedewald equation in the estimation of LDL-C. Ata GATES et al. ELEUTERIO. 2013;310(19): 6957-3327 (http://education.GoFish.com/faq/KOD871) For patients with diabetes plus 1 major ASCVD risk factor, treating to a non-HDL-C goal of <100 mg/dL (LDL-C of <70 mg/dL) is considered a therapeutic option. us Caitlyn JENSEN LAB - BLOOD DRAW Final Resul t Performing Organization Address [facility] Co de Phone Number [facility] [address] [address], [employer] [address] [address] * ACUTE HEPATITIS PANEL W/RFLX (06/08/2023 1:29 PM EDT) HEPATITIS A IGM ANTIBODY NON-REACT JCARLOS NON-REACT JCARLOS 06/09/2023 3:07 AM EDT [facility] HEPATITIS B SURFACE ANTIGEN NON-REACT JCARLOS NON-REACT JCARLOS 06/09/2023 3:07 AM EDT [facility] HEPATITIS B CORE IGM ANTIBODY NON-REACT JCARLOS NON-REACT JCARLOS 06/09/2023 3:07 AM EDT [employer] HEPATITIS C ANTIBODY NON-REACT JCARLOS NON-REACT JCARLOS 06/09/2023 3:07 AM EDT [facility] Blood Blood / Unknown 06/08/2023 1 :29 PM EDT 06/09/2023 1:31 AM EDT Narrative [employer] [facility] - 06/09/2023 4:41 AM EDT FASTING:UNKNOWN . HCV antibody was non-reactive. There is no laboratory evidence of HCV infection. . In most cases, no further action is required. However, if recent HCV exposure is suspected, a test for HCV RNA (test code 73061) is suggested. . For additional information please refer to http://education.[employer]ty.[employer]./faq/PRT15x9 (This link is being provided for informational/ educational purposes only.) . . For additional information, please refer to http://education.[employer]./faq/YJV066 (This link is being provided for informational/ educational purposes only.) . 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
--- OUTSIDE RECORDS SUMMARY | 2024-10-31 16:30 | XMS_ITS ---
Author Organization [facility] Address [address] [place] [address] Care Team Providers Care Costumed Character Entertainer Name Role Phone Caitlyn Swanson NP Primary Care Provider Unavail able CINTHYA ROJO Unavailable [phone] Emergency, Room Unavailable Unavailable X CT SKAGGS [...] Encounters Encounter Location Date Provider Diagnosis CCO[facility] [address] [place] [phone] 09/14/2023 CT SKAGGS Plan Of Treatment No Information Progress Notes * Lucita PAREKHDOB:[birth year] (73 yo F)Acc No.[id number]:09/14/2023 Patient:Lucita EARL Provider:?CT SKAGGS PA-C :1950???Age:72 Y???Sex:Female D ate:09/14/2023 Address:[address] [place], [place] [id number] Pcp:Caitlyn Swanson NP Subjective: * Chief Complaints: * ???1. Left Knee Pain. * Medical History:?Anxiety, At tention problems, Depression, Osteoprosis. * Surgical History:?appendix r emoved , Right TKR-[place] 11/02/2021. * Family History:?Father: diag nosed with [...] Electronic signature of ANGIE SKAGGS PA-C on 10/31/2024 at 04:29 PM EST Sign off status: Pending * Provider:?CT SKAGGS PA-C Date :?09/14/2023 Generated for Kirsten rhodes/[employer]/Janell on:?10/31/2024 04:29 PM EST
--- OUTSIDE RECORDS SUMMARY | 2024-10-31 16:30 | XMS_ITS | Patient Health Record ---
Author Organization [facility] Address [address] [place] [address] Care Team Providers Care Medical Billing Clerk Name Role Phone Sky KYLE, Caitlyn Primary Care Provider Unavail able CINTHYA ROJO Unavailable [phone] Emergency, Room Unavailable Unavailable Reason For Referral [...] Status Risk Notes Problem Right shoulder pain (4713542401) Right shoulder pain (M25.511) Active confirmed Problem Left shoulder pain (8293544175) Left shoulder pain (M25.512) Active confirmed Problem 356292140 Balance disorder (R26.89) Active confirmed Problem 086990005 Right anterior knee pain (M25.561) Active confirmed Problem [id number] Osteoarthritis o f carpometacarpal (CMC) joint of both thumbs (M18.0) Active confirmed Problem [id number] Arthritis of carpometacarpal (CMC) joint of both thumbs (M18.0) Active confirmed Plan Of Treatment No Information Insurance Providers Payer Name Payer Address Payer Phone Subscriber Number Group Number Insured Name Patient Relationship to Insured Coverage Start Date Coverage End Date Medicare [address] [place] [id number] [phone] [id number] Lucita Young Self - patient is the insured [facility] [address] [facility] [place] [id number] [phone] [id number] Lucita Young Self - patient is the insured Medications Administered Medication Instructions Date of Administration Dosage Notes AspInj Large Joint Bursa UGI 04/28/2023 AspInj Small Joint Bursa 04/18/2023 Celestone 04/18/2023 6 mg Celestone 04/28/2023 3 mg Medical (General) History Medical History History ICD Code anxiety attention problems depression osteoprosis Surgical History Surgery Date(Month/Year) appendix removed Right TKR-[facility] 11/02/2021
--- OUTSIDE RECORDS SUMMARY | 2024-10-31 16:30 | XMS_ITS | Clinical Summary ---
Author Organization [address] Address [address] [place] [phone] Phone Care Team Providers Care Manufacturing Management Associate Name Role Phone Luca Thibodeaux MD Primary Care Provider [phone] Allergies No known active allergies Medications amphetamine-dex [...] Major depression, recurrent, chronic 12/23/2013 Overview (08/30/2024): [place] admission 09/2016, 05/2017, [facility] Admission 08/2017 [...] PM EST Hospital Encounter Radiology Department - [address] [address] Screening mammogram, encounter for Discharge Disposition: Home or Self Care from Last 3 Months Immunizations Name Administration Dates Next Due Influenza Quadravalent, 0.5m l (Fluad) 65yo and older 11/05/2020 Influenza Quadravalent, MDCK , 0.5ml, with preservative (Flucelvax) 6mo and older 08/16/2017 Influenza trivalent, 0.5mL ( Fluzone High-dose) 65yo and older 08/22/2022,07/06/2021,05/11/2018 Influenza, Unspecified 08/19/2021 [employer] SARS-CoV-2 COVID-19, mRNA, LNP-S, preservative free 05/30/2021 [...] lt breast UPPER GASTROINTESTINAL ENDOSCOPY 2013 PROCEDURE: [place] UPPER GI ENDOSCOPY PERFORMED; COMMENT: normal UPPER GASTROINTESTINAL ENDOSCOPY 08/2001 PROCEDURE: [place] UPPER GI ENDOSCOPY PERFORMED; COMMENT: WNL APPENDECTOMY 01/2020 PROCEDURE: HISTORICAL APPENDECTOMY; COMMENT: [place] COLONOSCOPY 09/11/2020 PROCEDURE: HISTORICAL COLONOSCOPY; COMMENT: Minimal diverticulosis; 3 mm cecal polyp: Tubular adenoma. APPENDECTOMY PROCEDURE: [place] APPENDECTOMY Medical History Medical History Date Comments Irritable bowel syndrome DX:Irri table bowel syndrome; COMMENT: EGD, Colonoscopy (-)08/06/01 Lumbosacral spondylosis with out myelopathy DX:Lumbosacral spondylosis w ithout myelopathy Generalized osteoarthrosis, involving hand DX:Generalized osteoarthrosi s, involving hand Dermatophytosis of foot DX:[place] tophytosis of foot Iron deficiency anemia secon [...] DX:Major depression, recurre nt, chronic (HCC); COMMENT: [place] admission 09/2016, 05/2017, [facility] Ad[facility] 08/2017 [...] is recommended in 1 year. MAMMO LOCATION: [facility], [address] [place] [address], [address], . -------- FINAL REPORT -------- Dictated By: Domitila Joshua Dictated Date: 08/09/2024 15:18 ET Assigned Physician: Domitila Joshua Reviewed and Electronically Signed By: Domitila Joshua Signed Date: 08/09/2024 15:19 ET Workstation ID: [id number] Transcribed By: Self Edit Transcribed Date: 08/09/2024 [...] is recommended in 1 year. MAMMO LOCATION: [facility], [address] [place] [address], [address], . -------- FINAL REPORT -------- Dictated By: Domitila Joshua Dictated Date: 08/09/2024 15:18 ET Assigned Physician: Domitila Joshua Reviewed and Electronically Signed By: Domitila Joshua Signed Date: 08/09/2024 15:19 ET Workstation ID: [id number] Transcribed By: Self Edit Transcribed Date: 08/09/2024 15:18 ET Caitlyn Swanson NP IMG BI PROCEDURES Final Result * Hepatitis C Screening (09/15/2022) Pathologist [facility] Hepatitis C Screening Abstracted Historical Provider HEALTH [...] (World Health Organization Fracture Risk Assessment) [facility] Department of Internal Medicine recommends using National [...] (World Health Organization Fracture Risk Assessment) [facility] Department of Internal Medicine recommendsusing National Osteoporosis [...] Recently Relevant to Health Maintenance Insurance MEDICARE [facility] [address] [place] [address] Care Teams Manufacturing Management Associate Relationship Specialty Start Date End Date Luca Thibodeaux MD [address] [place] [address] PCP - General Internal Medicine 01/10/22
--- OUTSIDE RECORDS SUMMARY | 2024-10-31 16:30 | XMS_ITS ---
Author Organization [facility] Address [address] [place] [phone] Care Team Providers Care Meat And Poultry Inspector Name Role Phone Sky KYLE, Caitlyn Primary Care Provider Unavail able CINTHYA ROJO Unavailable [phone] Emergency, Room Unavailable Unavailable CASPER SANTOS Unavailable [phone] REASON FOR VISIT left shoulder fx Encounters Encounter Location Date Provider Diagnosis [facility] [address] [place] [phone] 07/25/2023 CASPER SANTOS Plan Of Treatment No Information Progress Notes * Lucita PAREKHDOB:[birth year] (73 yo F)Acc No.[id number]:07/25/2023 Progress Notes Patient:?Lucita PAREKH Provider:?DAT Chamberlain :1950???Age:72 Y???Sex:Female D ate:07/25/2023 Address:[address] [place], [place] [phone] Pcp:Caitlyn Swanson NP Subjective: * Chief Complaints: * ???1. Left shoulder fx. * Medical History:? Objective: * Vitals:? Assessment: Plan: * Treatment: * * Electronic signature of JOYCE CLARK on 10/31/2024 at 04:29 PM EST Sign off status: Pending * Provider:?DAT Chamberlain Date: ?07/25/2023 Generated for Kirsten rhodes/[employer]/Janell on:?10/31/2024 04:29 PM EST
--- OUTSIDE RECORDS SUMMARY | 2024-10-31 16:30 | XMS_ITS ---
Author Organization [facility] Address [address] [place] [address] Care Team Providers Care Java Integration Developer Name Role Phone Caitlyn Swanson NP Primary Care Provider Unavail able CINTHYA ROJO Unavailable [phone] Emergency, Room Unavailable Unavailable HARESH SANTOS Unavailable [phone] REASON FOR VISIT left shoulder fx Medications [...] Encounters Encounter Location Date Provider Diagnosis [facility] [address] [place] [address] 07/24/2023 HARESH SANTOS Plan Of Treatment No Information Progress Notes * Jing PAREKHB:[birth year] (73 yo F)Acc No.[id number]:07/24/2023 Progress Notes Patient:?Lucita PAREKH Provider:?DAT Chamberlain :1950???Age:72 Y???Sex:Female D ate:07/24/2023 Address:[address] [place], [place] [phone] Pcp:Caitlyn Swanson NP Subjective: * Chief Complaints: * ???1. Left shoulder fx. * Medical History:?Anxiety, At tention problems, Depression, Osteoprosis. * Surgical History:?appendix r emoved , Right TKR-[place] 11/02/2021. * Family History:?Father: angus nosed with [...] signature of JOYCE CLARK on 10/31/2024 at 04:30 PM EST Sign off status: Pending * Provider:?Haresh Santos, DAT Date: ?07/24/2023 Generated for Kirtsen rhodes/[employer]/Janell on:?10/31/2024 04:30 PM EST
== END 2024-10-31 13:41 | disposition home or self-care (01) ==
LOC: HO.LAB 13:40
PROVIDERS: PCP Nurse Practitioner Family; Visit Provider Internal Medicine Cardiovascular Disease
DX: I48.0 Paroxysmal atrial fibrillation (principal); R07.9 Chest pain, unspecified; R53.83 Other fatigue
CPT/HCPCS: 36415; 80048; 85027

== ENCOUNTER 2024-11-11 13:54 | Outpatient (AMB) | payer MEDICARE, OTHER, SELFPAY ==
[2024-11-11 14:02] VITALS: BP 126/80; PULSE 74; O2SAT 98; BMI 29.5
--- NOTE | 2024-11-11 14:02 | AM.OFFWIN_ITS ---
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 Patient Tobacco Use Status: Former Tobacco user Allergies No Known Allergies [No Known Allergies*] Allergy (Verified 11/11/24 14:04) Do you need a note to return to daycare/school/sports/work: No HPI HPI Comments History of Present Illness Details 73 y/o female patient who presents to [facility] walk in clinic with c/o right shoulder pain. She does have h/o right Shoulder OA and currently receives Steroid injections from Pain management. Reports Monday she was hugging a friend when she felt sharp severe pain at the shoulder, and thinks she might have dislocated her shoulder. Reports that Acetaminophen not helping with the pain. She has used Ice/Heat and rest with no relief. [facility] Medical History (Updated 09/03/24 @ 10:07 by Stephanie Verma MD) Gait apraxia Arthritis of left knee Gait disturbance HTN (hypertension) Osteoarthritis IBS (irritable bowel syndrome) Major depression, recurrent, chronic Vitamin D deficiency Abnormal gait Pure hypercholesterolemia Severe major depression without psychotic features Hx of basal cell carcinoma Osteopenia Paroxysmal atrial fibrillation Surgical History History of esophagogastroduodenoscopy (EGD) Hx of colonoscopy Hx of breast biopsy Hx of hysterectomy Hx of appendectomy Family History Father No problems noted. Mother No problems noted. Social History Are you a primary day care home provider to a significant other at home: No Do you presently have visiting nurse or other home services: Yes (RECORDS TECH 4 hours per week) Comment: aware of trip hazard Patient Tobacco Use Status: Former Tobacco user Tobacco use type: Cigarette Advance Directives Date on File: 11/11/21 service: No Current occupational status: retired Current occupation: rt handed Review of Systems Const All systems reviewed & are unremarkable except as noted in HPI and below Physical Exam Vital Signs: Last Vital Signs Pulse 74 11/11/24 14:02 BP 126/80 11/11/24 14:02 Pulse Ox 98 11/11/24 14:02 Oxygen Delivery Method Room Air 11/11/24 14:02 BMI result Body Mass Index 29.5 Const General: cooperative and no acute distress Orientation/consciousness: patient oriented x3 Neuro General: patient oriented x3, gait normal and moves all extremities Extrem Right upper extremity: shoulder/upper arm Details: normal to inspection, tenderness Location: of the proximal humerus and normal ROM (But limited due to pain); no swelling, no ecchymosis, no crepitus and no deformity Left upper extremity: normal to inspection and full ROM Psych Speech and movement: Normal speech and movement present Assessment & Plan Assessment & Plan (1) Primary osteoarthritis, right shoulder: Code(s): M19.011 - Primary osteoarthritis, right shoulder Plan: Continue using Acetaminophen, Ice/Hot for pain relief. Shoulder is not dislocated; possibly muscle Strain Has an appointment with Pain management for Steroid Shot Coding Level of Care Code New Pt Level 4 (18214) Diagnoses Primary osteoarthritis, right shoulder M19.011 Time Spent (min) 20
--- OUTSIDE RECORDS SUMMARY | 2024-11-11 15:45 | XMS_ITS ---
Author Organization [facility] Address [address] [place] [phone] Care Team Providers Care Ict Business Analyst Name Role Phone Sky KYLE, Caitlyn Primary Care Provider Unavail able CINTHYA ROJO Unavailable [phone] Emergency, Room Unavailable Unavailable CASPER SANTOS Unavailable [phone] REASON FOR VISIT left shoulder fx Encounters Encounter Location Date Provider Diagnosis [facility] [address] [place] [phone] 07/25/2023 CASPER SANTOS Plan Of Treatment No Information Progress Notes * Lucita PAREKHDOB:[birth year] (73 yo F)Acc No.[id number]:07/25/2023 Progress Notes Patient:?Lucita PAREKH Provider:?DAT Chamberlain :1950???Age:72 Y???Sex:Female D ate:07/25/2023 Address:[address] [place], [place] [phone] Pcp:Caityln Swanson NP Subjective: * Chief Complaints: * ???1. Left shoulder fx. * Medical History:? Objective: * Vitals:? Assessment: Plan: * Treatment: * * Electronic signature of JOYCE CLARK on 11/11/2024 at 03:45 PM EDT Sign off status: Pending * Provider:?DAT Chamberlain Date: ?07/25/2023 Generated for Kirsten rhodes/[employer]/Janell on:?11/11/2024 03:45 PM EDT
--- OUTSIDE RECORDS SUMMARY | 2024-11-11 15:45 | XMS_ITS | Clinical Summary ---
Author Organization [address] Address [address] [place] [phone] Phone Care Team Providers Care Welfare Officer Name Role Phone Luca Thibodeaux MD Primary Care Provider Allergies No known active allergies Medications amphetamine-dex [...] Major depression, recurrent, chronic 12/23/2013 Overview (08/30/2024): [place] admission 09/2016, 05/2017, [facility] Ad[facility] 08/2017 - intentional overdose hx x2 , ECT therapy 05/2017, outside psychiatric care Dr Barry Chest pain, unspecified 08/06/2006 Overview (08/30/2024): MIBI neg 05/10, EF 58 Dermatophytosis of foot 05/05/2006 Hyperlipidemia 05/05/2006 Irritable bowel syndrome 03/17/2006 Overview (08/30/2024): EGD, Colonoscopy (-)08/06/01 Generalized osteoarthrosis of hand 03/17/2006 Overview (08/30/2024): IMO update Immunizations Name Administration Dates Next Due Influenza Quadravalent, 0.5m l (Fluad) 65yo and older 11/05/2020 Influenza Quadravalent, MDCK , 0.5ml, with preservative (Flucelvax) 6mo and older 08/16/2017 Influenza trivalent, 0.5mL ( Fluzone High-dose) 65yo and older 08/22/2022,07/06/2021,05/11/2018 Influenza, Unspecified 08/19/2021 [employer] SARS-CoV-2 COVID-19, mRNA, LNP-S, preservative free 05/30/2021 [...] lt breast UPPER GASTROINTESTINAL ENDOSCOPY 2013 PROCEDURE: [place] UPPER GI ENDOSCOPY PERFORMED; COMMENT: normal UPPER GASTROINTESTINAL ENDOSCOPY 08/2001 PROCEDURE: [place] UPPER GI ENDOSCOPY PERFORMED; COMMENT: WNL APPENDECTOMY 01/2020 PROCEDURE: HISTORICAL APPENDECTOMY; COMMENT: [place] COLONOSCOPY 09/11/2020 PROCEDURE: HISTORICAL COLONOSCOPY; COMMENT: Minimal diverticulosis; 3 mm cecal polyp: Tubular adenoma. APPENDECTOMY PROCEDURE: [place] APPENDECTOMY Medical History Medical History Date Comments Irritable bowel syndrome DX:Irri table bowel syndrome; COMMENT: EGD, Colonoscopy (-)08/06/01 Lumbosacral spondylosis with out myelopathy DX:Lumbosacral spondylosis w ithout myelopathy Generalized osteoarthrosis, involving hand DX:Generalized osteoarthrosi s, involving hand Dermatophytosis of foot DX:[place] tophytosis of foot Iron deficiency anemia secon [...] DX:Major depression, recurre nt, chronic (HCC); COMMENT: [place] admission 09/2016, 05/2017, [facility] Ad[facility] 08/2017 - intentional overdose hx x2 , ECT therapy 05/2017, outside psychiatric care Dr Moshiri Abnormal gait 10/03/2017 DX:Abnormal gait ; COMMENT: [...] PM EDT Encounter for screening for osteoporosis COLONOSCOPY Routine 09/11/2020 from Last 3 Months [...] is recommended in 1 year. MAMMO LOCATION: [facility], [address] [place] [address], [address], . -------- FINAL REPORT -------- Dictated By: Domitila Joshua Dictated Date: 08/09/2024 15:18 ET Assigned Physician: Domitila Joshua Reviewed and Electronically Signed By: Domitila Joshua Signed Date: 08/09/2024 15:19 ET Workstation ID: [id number] Transcribed By: Self Edit Transcribed Date: 08/09/2024 [...] is recommended in 1 year. MAMMO LOCATION: [facility], [address] [place] [address], [address], . -------- FINAL REPORT -------- Dictated By: Domitila Joshua Dictated Date: 08/09/2024 15:18 ET Assigned Physician: Domitila Joshua Reviewed and Electronically Signed By: Domitila Joshua Signed Date: 08/09/2024 15:19 ET Workstation ID: [id number] Transcribed By: Self Edit Transcribed Date: 08/09/2024 15:18 ET Result [facility] Caitlyn Swanson MANUFACTURING WORKER IMG BI PROCEDURES Final Result * Hepatitis C Screening (09/15/2022) Pathologist [facility] Hepatitis C Screening Abstracted Result [facility] Historical Provider HEALTH MAINTENANCE Final Result * (ABNORMAL) Lipid panel (09/15/2022) LDL/HDL Ratio 5(A) 0 - 4 Triglycerides 109 0 - 150 mg/dL Cholesterol 265(A) 0 - 200 mg/dL HDL 58 >=40 mg/dL LDL Cholesterol 186(A) 0 - 100 mg/dL Blood Venous blood specimen / Unknown Historical Provider LAB BLOOD ORDERABLES Edit ed [...] (World Health Organization Fracture Risk Assessment) [facility] Department of Internal Medicine recommends using [...] (World Health Organization Fracture Risk Assessment) [facility] Department of Internal Medicine recommendsusing National [...] fracture risk by FRAX. Ena Egan MD IMG DXA PROCEDURES Final Res ult * Colonoscopy (09/11/2020) Colonoscopy No interpretation , Abstracted Anatomical Region Laterality Modality Other Historical Provider HEALTH MAINTENANCE Final Result from Last 3 Months or Most Recently Relevant to Health Maintenance Insurance [facility]ICARE [facility] Care Teams Welfare Officer Relationship Specialty Start Date End Date Luca Thibodeaux MD [address] [place] [address] PCP - General Internal Medicine 01/10/22
--- OUTSIDE RECORDS SUMMARY | 2024-11-11 15:46 | XMS_ITS ---
Author Organization [facility] Address [address] [place] [address] Care Team Providers Care Economic Adviser Name Role Phone Caitlyn Swanson NP Primary Care Provider Unavail able CINTHYA ROJO Unavailable [phone] Emergency, Room Unavailable Unavailable HARESH SANTOS Unavailable [phone] REASON FOR VISIT left shoulder fx Medications [...] Encounters Encounter Location Date Provider Diagnosis [facility] [address] [place] [address] 07/24/2023 HARESH SANTOS Plan Of Treatment No Information Progress Notes * Jing PAREKHB:[birth year] (73 yo F)Acc No.[id number]:07/24/2023 Progress Notes Patient:?Lucita PAREKH Provider:?DAT Chamberlain :1950???Age:72 Y???Sex:Female D ate:07/24/2023 Address:[address] [place], [place] [phone] Pcp:Caitlyn Swanson NP Subjective: * Chief Complaints: * ???1. Left shoulder fx. * Medical History:?Anxiety, At tention problems, Depression, Osteoprosis. * Surgical History:?appendix r emoved , Right TKR-[place] 11/02/2021. * Family History:?Father: angus nosed with [...] signature of JOYCE CLARK on 11/11/2024 at 03:46 PM EDT Sign off status: Pending * Provider:?Haresh Santos, DAT Date: ?07/24/2023 Generated for Kirsten rhodes/[employer]/Janell on:?11/11/2024 03:46 PM EDT
--- OUTSIDE RECORDS SUMMARY | 2024-11-11 15:46 | XMS_ITS | Clinical Summary ---
Author Organization [facility] Address [address] [place] [address] Care Team Providers Care Decatizer Name Role Phone Caitlyn Swanson MIKEY Primary [...] daily. 90 Tablet 3 06/24/20 24 Active melatonin 3 mg tabletIndications: Adjustment [...] day 180 Tablet 4 09/19/19 25 Active busPIRone (BUSPAR) 7.5 mg tabletIndications: Situational anxiety Take 1 Tablet by mouth 3 (three) times daily 90 Tablet 1 10/05/19 25 Active dextroamphetamine- amphetamine (ADDERALL XR) 10 mg 24 hr capsuleIndications :Attention deficit hyperactivity disorder (ADHD), predominantly inattentive type TAKE 1 CAPSULE BY MOUTH ONCE A DAY IN THE MORNING 90 Capsule 11/06/19 25 Active clonazePAM (KLONOPIN) 1 mg tabletIndications: Major depression, recurrent, chronic (HCC-CMS) Take 1 Tablet by mouth nightly at bedtime for 28 days 28 Tablet 11/06/19 25 025 Active dextroamphetamine- amphetamine (ADDERALL XR) 10 mg 24 hr capsuleIndications :Attention deficit hyperactivity disorder (ADHD), predominantly inattentive type TAKE 1 CAPSULE BY MOUTH ONCE A DAY IN THE MORNING 90 Capsule 08/03/20 24 025 Discontin ued(Reord er (E-Cancel Not Sent)) clonazePAM (KLONOPIN) 1 mg tabletIndications: Major depression, recurrent, chronic (HCC-CMS) Take 1 Tablet by mouth nightly at bedtime 09/19/19 25 025 Discontin ued(Reord er (E-Cancel Not Sent)) Active Problems Problem Noted Date Diagnosed Date 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 08/30/2022 Gastroesophageal reflux disease without esophagi tis 08/22/2022 Overview (06/11/2024): Pt unsure why on Protonix and no memory of GERD will taper off Protonix q 2 wk skip another pill unto off If GERD sxs increase go back to higher dose Chronic atrial fibrillation ([facility]) 08/22/2022 Fractures 02/09/2022 Overview (07/01/2022): Per ot: Fractures of ribs 3 and 4 (left side), Fractures of both wrists and left thumb Osteopenia 06/04/2021 Renal cyst, right 04/25/2019 History of basal cell carcinoma 06/13/2018 Overview (06/11/2024): BCC 06/21 left arm (superficial) Sees annually DR Jaguar Cardona [place] 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 ([facility]) 02/09/2018 Overview (09/19/2024): 06/11/2024 PHQ-9 Total Score [...] recurrent, chronic (HCC-CMS) 12/23/2013 06/08/2023 Overview (07/01/2022): [place] admission 09/2016, 05/2017, [facility] Admission 08/2017 - intentional overdose hx x2 , ECT therapy 05/2017, outside psychiatric care Dr Barry Encounters Date Type Department Care Team Description 09/24/2024 8:20 AM EST Office Visit [facility] [address] [place] [address] Lani Sanz PA-C Black stool (Primary Dx); Viral gastroenteritis 09/19/2024 2:40 PM EST Office Visit [facility] [address] [place] [id number] Caitlyn Swanson CFNP Chronic atrial fibrillation (HCC-CMS) (Primary Dx); Major depression, recurrent, chronic (HCC-CMS); Severe major depression without psychotic features (HCC-CMS) 08/22/2024 3:00 PM EST Office Visit [facility] [address] [place] [address] Caitlyn Swanson CFNP Major depression, recurrent, chronic (HCC-CMS) (Primary Dx); Severe major depression without psychotic features (HCC-CMS) from Last 3 Months Immunizations Name Administration [...] toxoid,preservative free 08/16/2017 ZOSTER VACCINE, RECOMBINANT (SHINGRIX) 2,07/10/2021 Family History Medical History Relation Name Comments Heart Problems Father d age 73 chf Mother d age 83 No Known Problems Sister sibling ag e 75 Relation Name Status Comments Father Mother Sister Alive Social History Tobacco Use Types Packs/Day Years Used Date Smoking Tobacco: Former Cigarettes Q uit: 1979 Tobacco Cessation:Counseling Given: Not Answered Alcohol Use [...] 05/03/2022, 07/10 Hepatitis C Screening Completed 06/08/2023 [id number] Completed 06/11/2024, 06/04, 05/30/2021, Additional history exists [...] 10.8 Thousand/ uL 09/24/2024 8:21 PM EST [facility] RED BLOOD CELL COUNT 4.91 3.80 - 5.10 Million/u L 09/24/2024 8:21 PM EST [facility] HEMOGLOBIN 15.3 11.7 - 15.5 g/dL 09/24/2024 8:21 PM EST [facility] HEMATOCRIT 46.6(H) 35.0 - 45.0 % 09/24/2024 8:21 PM EST [facility] MCV 94.9 80.0 - 100.0 fL 09/24/2024 8:21 PM EST [facility] [place] [employer] MCH 31.2 27.0 - 33.0 pg 09/24/2024 8:21 PM EST [facility] MCHC 32.8 32.0 - 36.0 g/dL 09/24/2024 8:21 PM EST [facility] [place] [employer] RDW 11.8 11.0 - 15.0 % 09/24/2024 8:21 PM EST [facility] PLATELET COUNT 290 140 - 400 Thousand/ uL 09/24/2024 8:21 PM EST [email or web address] MPV 9.8 7.5 - 12.5 fL 09/24/2024 8:21 PM EST [email or web address] Blood Blood / Unknown 09/24/2024 9 :44 AM EST 09/24/2024 4:58 PM EST Narrative [facility] - 09/24/2024 8:30 PM EST FASTING:YES For adults, a slight decrease in the calculated MCHC value (in the range of 30 to 32 g/dL) is most likely not clinically significant; however, it should be interpreted with caution in correlation with other red cell parameters and the patient's clinical condition. us Lani Sanz PA-C LAB - BLOOD DRAW Final Resul t [employer] [address] [address], [facility] [place] [employer] [address] [place] [address] * (ABNORMAL) COMPREHENSIVE METABOLIC PANEL (09/24/2024 9:44 AM EST) Only the most recent of2 resultswithin the time period is included. GLUCOSE 105(H) 65 - 99 mg/dL 09/24/2024 6:49 PM EST [facility] UREA NITROGEN (BUN) 15 7 - 25 mg/dL 09/24/2024 6:49 PM EST [email or web address] CREATININE (blood) 0.77 0.60 - 1.00 mg/dL 09/24/2024 6:49 PM EST [email or web address] EGFR 81 > OR = 60 mL/min/1. 73m2 09/24/2024 6:49 PM EST [email or web address] BUN/CREATININE RATIO SEE NOTE: 6 - 22 (calc) 09/24/2024 6:49 PM EST [email or web address] SODIUM 136 135 - 146 mmol/L 09/24/2024 6:49 PM EST [email or web address] POTASSIUM 4.3 3.5 - 5.3 mmol/L 09/24/2024 6:49 PM EST [email or web address] CHLORIDE 101 98 - 110 mmol/L 09/24/2024 6:49 PM EST [email or web address] CARBON DIOXIDE 28 20 - 32 mmol/L 09/24/2024 6:49 PM EST [email or web address] CALCIUM 10.1 8.6 - 10.4 mg/dL 09/24/2024 6:49 PM EST [email or web address] PROTEIN, TOTAL 6.7 6.1 - 8.1 g/dL 09/24/2024 6:49 PM EST [email or web address] ALBUMIN 4.3 3.6 - 5.1 g/dL 09/24/2024 6:49 PM EST [facility] GLOBULIN 2.4 1.9 - 3.7 g/dL (calc) 09/24/2024 6:49 PM EST [email or web address] ALBUMIN/GLOBULI N RATIO 1.8 1.0 - 2.5 (calc) 09/24/2024 6:49 PM EST [facility] BILIRUBIN, TOTAL 0.4 0.2 - 1.2 mg/dL 09/24/2024 6:49 PM EST [facility] ALKALINE PHOSPHATASE 82 37 - 153 U/L 09/24/2024 6:49 PM EST [email or web address] AST 15 10 - 35 U/L 09/24/2024 6:49 PM EST [facility] ALT 12 6 - 29 U/L 09/24/2024 6:49 PM EST [facility] Blood Blood / Unknown 09/24/2024 9 :44 AM EST 09/24/2024 4:49 PM EST Narrative [facility] - 09/24/2024 6:59 PM EST FASTING:YES . ? Fasting reference interval . For someone without known diabetes, a glucose value between 100 and 125 mg/dL is consistent with prediabetes and should be confirmed with a follow-up test. . ?? Not Reported: BUN and Creatinine are within ?? reference range. . us Lani Sanz PA-C LAB - BLOOD DRAW Final Resul t [facility] [address] [address], [employer] [address] [address] * (ABNORMAL) HEMOCUE HEMOGLOBIN (POCT) (09/24/2024 9:14 AM EST) HEMOGLOBIN 15.3(A) 12 - 15 g/dL [facility] Blood Blood / Unknown 09/24/2024 9 :14 AM EST us Lani Sanz PA-C LAB - BLOOD DRAW Final Resul t Performing Organization Address City/[facility]/ZIP Co de Phone Number [facility] [address] [place] [address], * VITAMIN B12 & FOLATE (09/19/2024 2:00 PM EST) Pathologist [facility] VITAMIN B12 622 200 - 1,100 pg/mL 09/20/2024 3:31 AM EST [email or web address] FOLATE, SERUM 8.1 ng/mL 09/20/2024 3:31 AM EST [email or web address] Blood Blood / Unknown 09/19/2024 2 :00 PM EST 09/20/2024 2:42 AM EST Narrative [employer] - 09/20/2024 3:37 AM EST FASTING:YES ? Reference Range ? Low: ? <3.4 ? Borderline: ?3.4-5.4 ? Normal: ?>5.4 . Caitlyn Swanson [facility] LAB - BLOOD DRAW Final Resul t Performing Organization Address City/[facility]/ZIP Co de Phone Number [employer] [address] [address], [email or web address] [address] [place] [address] * (ABNORMAL) BLOOD COUNT COMPLETE AUTO&AUTO DIFRNTL WBC (09/19/2024 2:00 PM EST) Pathologist [facility] WHITE BLOOD CELL COUNT 11.6(H) 3.8 - 10.8 Thousand/ uL 09/20/2024 2:24 AM EST [email or web address] RED BLOOD CELL COUNT 4.66 3.80 - 5.10 Million/u L 09/20/2024 2:24 AM [facility] HEMOGLOBIN 14.5 11.7 - 15.5 g/dL 09/20/2024 2:24 AM [employer] [facility] HEMATOCRIT 44.8 35.0 - 45.0 % 09/20/2024 2:24 AM [employer] [facility] MCV 96.1 80.0 - 100.0 fL 09/20/2024 2:24 AM [employer] [facility] MCH 31.1 27.0 - 33.0 pg 09/20/2024 2:24 AM [employer] [facility] MCHC 32.4 32.0 - 36.0 g/dL 09/20/2024 2:24 AM [facility] [facility] RDW 11.8 11.0 - 15.0 % 09/20/2024 2:24 AM [facility] [facility] PLATELET COUNT 349 140 - 400 Thousand/ uL 09/20/2024 2:24 AM [facility] [facility] MPV 9.7 7.5 - 12.5 fL 09/20/2024 2:24 AM [facility] [facility] ABSOLUTE NEUTROPHILS 6,392 1,500 - 7,800 cells/uL 09/20/2024 2:24 AM [employer] [facility] ABSOLUTE LYMPHOCYTES 4,141(H) 850 - 3,900 cells/uL 09/20/2024 2:24 AM [employer] [facility] ABSOLUTE MONOCYTES 940 200 - 950 cells/uL 09/20/2024 2:24 AM [employer] [facility] ABSOLUTE EOSINOPHILS 81 15 - 500 cells/uL 09/20/2024 2:24 AM [facility] [facility] ABSOLUTE BASOPHILS 46 0 - 200 cells/uL 09/20/2024 2:24 AM [facility] [facility] NEUTROPHILS PCT 55.1 % 2:24 AM [facility] LYMPHOCYTES 35.7 % 09/20/2024 2:24 AM [facility] MONOCYTES 8.1 % 09/20/2024 2:24 AM [facility] EOSINOPHILS 0.7 % 09/20/2024 2:24 AM [facility] BASOPHILS 0.4 % 09/20/2024 2:24 AM [facility] Blood Blood / Unknown 09/19/2024 2 :00 PM EST 09/20/2024 1:44 AM EST Narrative [facility] - 09/20/2024 2:31 AM EST FASTING:YES For adults, a slight decrease in the calculated MCHC value (in the range of 30 to 32 g/dL) is most likely not clinically significant; however, it should be interpreted with caution in correlation with other red cell parameters and the patient's clinical condition. Caitlyn Swanson [facility] LAB - BLOOD DRAW Final Resul t [facility] [place] [employer] [address] [address], [facility] [address] [place] [address] * LIPID PANEL (09/19/2024 2:00 PM EST) Pathologist [facility] CHOLESTEROL, TOTAL 161 <200 mg/dL 09/20/2024 4:30 AM EST [facility] HDL CHOLESTEROL 62 > OR = 50 mg/dL 09/20/2024 4:30 AM EST [facility] TRIGLYCERIDES 70 <150 mg/dL 09/20/2024 4:30 AM EST [facility] LDL-CHOLESTEROL 84 mg/dL (calc) 09/20/2024 4:30 AM EST [email or web address] CHOL/HDLC RATIO 2.6 <5.0 (calc) 09/20/2024 4:30 AM EST [facility] NON-HDL CHOLESTEROL 99 <130 mg/dL (calc) 09/20/2024 4:30 AM EST [facility] Blood Blood / Unknown 09/19/2024 2 :00 PM EST 09/20/2024 2:42 AM EST Narrative [facility] - 09/20/2024 4:33 AM EST FASTING:YES Reference range: <100 . Desirable range <100 mg/dL for primary prevention; ?? <70 mg/dL for patients with CHD or diabetic patients with > or = 2 CHD risk factors. . LDL-C is now calculated using the Rebecca calculation, which is a validated novel method providing better accuracy than the Friedewald equation in the estimation of LDL-C. Ata SS et al. ELEUTERIO. 2013;310(19): 7641-2595 (http://education.[employer].com/faq/XLI545) For patients with diabetes plus 1 major ASCVD risk factor, treating to a non-HDL-C goal of <100 mg/dL (LDL-C of <70 mg/dL) is considered a therapeutic option. Caitlyn Lopeserick [facility] LAB - BLOOD DRAW Final Resul t [facility] [address] [address], [facility] [address] [address] * ACUTE HEPATITIS PANEL W/RFLX (06/08/2023 1:29 PM EDT) HEPATITIS A IGM ANTIBODY NON-REACT JCARLOS NON-REACT JCARLOS 06/09/2023 3:07 AM EDT [facility] HEPATITIS B SURFACE ANTIGEN NON-REACT JCARLOS NON-REACT JCARLOS 06/09/2023 3:07 AM EDT [facility] HEPATITIS B CORE IGM ANTIBODY NON-REACT JCARLOS NON-REACT JCARLOS 06/09/2023 3:07 AM EDT [facility] HEPATITIS C ANTIBODY NON-REACT JCARLOS NON-REACT JCARLOS 06/09/2023 3:07 AM EDT [facility] Blood Blood / Unknown 06/08/2023 1 :29 PM EDT 06/09/2023 1:31 AM EDT Narrative [facility] - 06/09/2023 4:41 AM EDT FASTING:UNKNOWN . HCV antibody was non-reactive. There is no laboratory evidence of HCV infection. . In most cases, no further action is required. However, if recent HCV exposure is suspected, a test for HCV RNA (test code 52597) is suggested. . For additional information please refer to http://NoWait.[employer]bar/faq/JCC06e9 (This link is being provided for informational/ educational purposes only.) . . For additional information, please refer to http://NoWait.[employer]bar/faq/JKC916 (This link is being provided for informational/ educational purposes only.) . Caitlyn Swanson [facility] LAB - BLOOD DRAW Final Resul t [facility] [address] [address], [facility] [address] [place] [address] from Last 3 Months or Most Recently Relevant to Health Maintenance Insurance MEDICARE - [place] [facility] Member Subscriber Plan / Payer (Ef fective 2022-Present) Name:Lucita Parekh Relation to Subscriber:Self Name:Lucita Parekh Payer ID:[id number] Group ID:Not on file Type:Indemni Address: [address] [place] [id number] Advance Directives Documents on File Type Date Recorded Patient Roofer Helper Expl anation Directives to Physicians 08/22/2024 12:00 AM [facility] HCP Care Teams Decatizer Relationship Specialty Start Date End Date Caitlyn Swanson CFNP [address] [place] [address] PCP - General [employer] Nurse Practitioner 04/11/23
--- OUTSIDE RECORDS SUMMARY | 2024-11-11 15:46 | XMS_ITS | Patient Health Record ---
Author Organization [facility] Address [address] [place] [address] Care Team Providers Care Smoke Chaser Name Role Phone Sky KYLE, Caitlyn Primary Care Provider Unavail able CINTHYA ROJO Unavailable [phone] Emergency, Room Unavailable Unavailable Reason For Referral [...] Status Risk Notes Problem Right shoulder pain (2072162674) Right shoulder pain (M25.511) Active confirmed Problem Left shoulder pain (8432042965) Left shoulder pain (M25.512) Active confirmed Problem 427215408 Balance disorder (R26.89) Active confirmed Problem 445643840 Right anterior knee pain (M25.561) Active confirmed Problem [id number] Osteoarthritis o f carpometacarpal (CMC) joint of both thumbs (M18.0) Active confirmed Problem [id number] Arthritis of carpometacarpal (CMC) joint of both thumbs (M18.0) Active confirmed Plan Of Treatment No Information Insurance Providers Payer Name Payer Address Payer Phone Subscriber Number Group Number Insured Name Patient Relationship to Insured Coverage Start Date Coverage End Date Medicare [address] [place] [id number] Lucita Young Self - patient is the insured [facility] [address] [facility] [place] [id number] Lucita Young Self - patient is the insured Medications Administered Medication Instructions Date of Administration Dosage Notes AspInj Large Joint Bursa UGI 04/28/2023 AspInj Small Joint Bursa 04/18/2023 Celestone 04/18/2023 6 mg Celestone 04/28/2023 3 mg Medical (General) History Medical History History ICD Code anxiety attention problems depression osteoprosis Surgical History Surgery Date(Month/Year) appendix removed Right TKR-[place] 11/02/2021
--- OUTSIDE RECORDS SUMMARY | 2024-11-11 15:46 | XMS_ITS ---
Author Organization [facility] Address [address] [place] [address] Care Team Providers Care Category Director Name Role Phone Caitlyn Swanson NP Primary Care Provider Unavail able CINTHYA ROJO Unavailable [phone] Emergency, Room Unavailable Unavailable X CT SKAGGS [...] Encounters Encounter Location Date Provider Diagnosis [facility] [address] [place] [phone] 09/14/2023 CT [facility]AGGS Plan Of Treatment No Information Progress Notes * Lucita PAREKHDOB:[birth year] (73 yo F)Acc No.[id number]:09/14/2023 Patient:Lucita EARL Provider:?CT SKAGGS PA-C :1950???Age:72 Y???Sex:Female D ate:09/14/2023 Address:[address] [place], [place] [id number] Pcp:Caitlyn Swanson NP Subjective: * Chief Complaints: * ???1. Left Knee Pain. * Medical History:?Anxiety, At tention problems, Depression, Osteoprosis. * Surgical History:?appendix r emoved , Right TKR-[place] 11/02/2021. * Family History:?Father: diag nosed with [...] Electronic signature of ANGIE SKAGGS PA-C on 11/11/2024 at 03:45 PM EDT Sign off status: Pending * Provider:?CT SKAGGS PA-C Date :?09/14/2023 Generated for Kirsten rhodes/[employer]/Janell on:?11/11/2024 03:45 PM EDT
== END 2024-11-11 14:44 | disposition home or self-care (01) ==
PROVIDERS: PCP Nurse Practitioner Family; Visit Provider Nurse Practitioner Family
DX: M19.011 Primary osteoarthritis, right shoulder (principal)

== ENCOUNTER → 2024-11-11 13:54 | Outpatient (BNVA) | payer MEDICARE, OTHER, SELFPAY | PROVIDERS: PCP Nurse Practitioner Family; Visit Provider Nurse Practitioner Family | DX: M19.011 Primary osteoarthritis, right shoulder (principal) | CPT/HCPCS: 99202 ==

== ENCOUNTER 2024-11-18 14:33 | Outpatient (AMB) | payer MEDICARE, OTHER, SELFPAY ==
--- NOTE | 2024-11-18 14:37 | MHC.OFFVIS ---
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 She is suffering from severe osteoarthritis right shoulder with severe pain radiating to the arm and forearm. She received intra-articular right shoulder injection in March of 2024. She reported 6 months of the pain relief however she reported that recently she started to feel more and more severe pain in the right shoulder. She is concerned about osteoporosis and does not want to repeat the steroid injections. I offered the patient PRP injection. She agreed to go for the procedure. The cost of the procedure was explained to the patient. Prior: very pleasant 73 years old female who presented today in my office after the therapeutic right intra-articular shoulder injection which was performed on 04/02/2024. She reports today that her pain in his shoulder started 1 year ago she relates her pain in his shoulder to arthritis. She reported that on x-ray she was told she has ?ijyk-uh-yflp ?arthritis. She had extensive physical therapy for her knee problems however she never had any physical therapy for her shoulder. She had intra-articular shoulder injection. Her past medical history significant for rate control atrial fibrillation she is on Eliquis. She denies taking aspirin, she denies taking NSAIDs, she states that she takes only Tylenol. [facility] Medical History (Updated 09/03/24 @ 10:07 by Stephanie Verma MD) Gait apraxia Arthritis of left knee Gait disturbance HTN (hypertension) Osteoarthritis IBS (irritable bowel syndrome) Major depression, recurrent, chronic Vitamin D deficiency Abnormal gait Pure hypercholesterolemia Severe major depression without psychotic features Hx of basal cell carcinoma Osteopenia Paroxysmal atrial fibrillation Surgical History History of esophagogastroduodenoscopy (EGD) Hx of colonoscopy Hx of breast biopsy Hx of hysterectomy Hx of appendectomy Family History Father No problems noted. Mother No problems noted. Social History Are you a primary lawn care professional to a significant other at home: No Do you presently have visiting nurse or other home services: Yes (GUEST ROOM INSPECTOR 4 hours per week) Comment: aware of trip hazard Patient Tobacco Use Status: Former Tobacco user Tobacco use type: Cigarette Advance Directives Date on File: 11/11/21 service: No Current occupational status: retired Current occupation: rt handed Review of Systems Const All systems reviewed & are unremarkable except as noted in HPI and below ENT Reports Normal hearing present Neuro Reports Normal hearing present, Denies Abnormal speech present, Denies confusion and Denies Sensory deficit (Neuro) Psych Denies confusion Physical Exam Vital Signs: Last Vital Signs Pulse 85 11/18/24 14:38 BP 144/68 H 11/18/24 14:38 Pulse Ox 97 11/18/24 14:38 Oxygen Delivery Method Room Air 11/18/24 14:38 BMI result Body Mass Index 29.3 Const General: no acute distress; No confusion Orientation/consciousness: patient oriented x3 and No confusion Eyes General: appearance normal, both eyes and all related structures Pupils: Equal, round and reactive pupils present EOM: EOMs intact bilaterally Neck Neck: Yes full ROM Chest Chest palpation & inspection: normal inspection of the chest Resp Effort & Inspection: normal respiratory effort, able to speak in complete sentences, normal respiratory pattern, no audible wheezes and no cough Cardio Jugular venous distension: no JVD GI Inspection: Yes normal to inspection Neuro General: patient oriented x3, gait normal and No confusion Cranial nerves: Yes CN's II-XII intact bilaterally, Yes Equal, round and reactive pupils present, Yes Normal hearing present and Yes Ability to bilaterally elevate shoulders present Speech: No Abnormal speech present Gait exam (Neuro): Normal gait present Motor exam (neuro): 5/5 motor strength present throughout Sensory Exam: No Sensory deficit (Neuro) Extrem Other: Limited range of motion of the right glenohumeral joint. Crepitus is sensed on palpation with movement of the joint. The temperature of the joint seem to be appropriate and there is no local temperature observed. General: No pedal edema Psych Speech and movement: Normal speech and movement present Affect: normal affect Attitude: cooperative Thought process: Normal thought process present Thought content: Normal thought content present Insight: Good insight present (Psych) Judgement: Good judgement present (Psych) Assessment & Plan Assessment & Plan (1) Right shoulder pain: Code(s): M25.511 - Pain in right shoulder Category: Medical (2) Primary osteoarthritis, right shoulder: Code(s): M19.011 - Primary osteoarthritis, right shoulder Category: Medical Plan Lucita is back in my office to discuss the results of the previous shoulder steroid injections as well as to discuss possibility of further treatment. 50% pain relief after right shoulder steroid injection lasted about 5 months. Past month with the pain was gradually returning. PRP was explained to the patient. I am planning PRP without filter. It should cause her 750 dollars. Patient was explained the nature of the procedure, she was explained limitations which would require the procedure to be performed. Coding Level of Care Code Est Pt Level 3 (37049) Diagnoses Right shoulder pain M25.511 Primary osteoarthritis, right shoulder M19.011
[2024-11-18 14:38] VITALS: BP 144/68; PULSE 85; O2SAT 97; BMI 29.3
--- OUTSIDE RECORDS SUMMARY | 2024-11-18 17:07 | XMS_ITS | Clinical Summary ---
Author Organization [address] Address [address] [place] [phone] Phone Care Team Providers Care Billet Sawyer Name Role Phone Luca Thibodeaux MD Primary Care Provider [phone] Allergies No known active allergies Medications amphetamine-dex [...] Major depression, recurrent, chronic 12/23/2013 Overview (08/30/2024): [place] admission 09/2016, 05/2017, [facility] Admission 08/2017 [...] 65yo and older 08/22/2022,07/06/2021,05/11/2018 Influenza, Unspecified 08/19/2021 [employer] SARS-CoV-2 COVID-19, mRNA, LNP-S, preservative free 05/30/2021 [...] lt breast UPPER GASTROINTESTINAL ENDOSCOPY 2013 PROCEDURE: [place] UPPER GI ENDOSCOPY PERFORMED; COMMENT: normal UPPER GASTROINTESTINAL ENDOSCOPY 08/2001 PROCEDURE: [place] UPPER GI ENDOSCOPY PERFORMED; COMMENT: WNL APPENDECTOMY 01/2020 PROCEDURE: HISTORICAL APPENDECTOMY; COMMENT: [place] COLONOSCOPY 09/11/2020 PROCEDURE: HISTORICAL COLONOSCOPY; COMMENT: Minimal diverticulosis; 3 mm cecal polyp: Tubular adenoma. APPENDECTOMY PROCEDURE: [place] APPENDECTOMY Medical History Medical History Date Comments Irritable bowel syndrome DX:Irri table bowel syndrome; COMMENT: EGD, Colonoscopy (-)08/06/01 Lumbosacral spondylosis with out myelopathy DX:Lumbosacral spondylosis w ithout myelopathy Generalized osteoarthrosis, involving hand DX:Generalized osteoarthrosi s, involving hand Dermatophytosis of foot DX:[place] tophytosis of foot Iron deficiency anemia secon [...] DX:Major depression, recurre nt, chronic (HCC); COMMENT: [place] admission 09/2016, 05/2017, [facility] Admission 08/2017 [...] is recommended in 1 year. MAMMO LOCATION: [facility], [address] [place] [address], [address], . -------- FINAL REPORT -------- Dictated By: Domitila Joshua Dictated Date: 08/09/2024 15:18 ET Assigned Physician: Domitila Joshua Reviewed and Electronically Signed By: Domitila Joshua Signed Date: 08/09/2024 15:19 ET Workstation ID: [id number] Transcribed By: Self Edit Transcribed Date: 08/09/2024 [...] is recommended in 1 year. MAMMO LOCATION: [facility], [address] [place] [address], [address], . -------- FINAL REPORT -------- Dictated By: Domitila Joshua Dictated Date: 08/09/2024 15:18 ET Assigned Physician: Domitila Joshua Reviewed and Electronically Signed By: Domitila Joshua Signed Date: 08/09/2024 15:19 ET Workstation ID: [id number] Transcribed By: Self Edit Transcribed Date: 08/09/2024 15:18 ET Result [facility] Caitlyn Swanson SILICA FILTER OPERATOR IMG BI PROCEDURES Final Result * Hepatitis C Screening (09/15/2022) Pathologist [facility] Hepatitis C Screening Abstracted Result [facility] Historical Provider HEALTH MAINTENANCE Final Result * [...] (World Health Organization Fracture Risk Assessment) [facility] Department of Internal Medicine recommends using National [...] (World Health Organization Fracture Risk Assessment) [facility] Department of Internal Medicine recommendsusing National Osteoporosis [...] Recently Relevant to Health Maintenance Insurance MEDICARE [facility] Care Teams Billet Sawyer Relationship Specialty Start Date End Date Luca Thibodeaux MD [address] [place] [address] PCP - General Internal Medicine 01/10/22
--- OUTSIDE RECORDS SUMMARY | 2024-11-18 17:07 | XMS_ITS ---
Author Organization [facility] Address [address] [place] [address] Care Team Providers Care Assistant Dean Name Role Phone Caitlyn Swanson NP Primary Care Provider Unavail able CINTHYA ROJO Unavailable [phone] Emergency, Room Unavailable Unavailable X CT SKAGGS Unavailable [phone] REASON FOR VISIT Left Knee Pain [...] Encounters Encounter Location Date Provider Diagnosis CCOHY [facility] [address] [place] [phone] 09/14/2023 CT SKAGGS Plan Of Treatment No Information Progress Notes * Lucita PAREKHDOB:[birth year] (73 yo F)Acc No.[id number]:09/14/2023 Patient:Lucita EARL Provider:?CT SKAGGS PA-C :1950???Age:72 Y???Sex:Female D ate:09/14/2023 Address:[address] [place], [place] [phone] Pcp:Caitlyn Swanson NP Subjective: * Chief Complaints: * ???1. Left Knee Pain. * Medical History:?Anxiety, At tention problems, Depression, Osteoprosis. * Surgical History:?appendix r emoved , Right TKR-[place] 11/02/2021. * Family History:?Father: diag nosed with [...] Electronic signature of ANGIE SKAGGS PA-C on 11/18/2024 at 05:07 PM EDT Sign off status: Pending * Provider:?CT SKAGGS PA-C Date :?09/14/2023 Generated for Kirsten rhodes/[employer]/Janell on:?11/18/2024 05:07 PM EDT
--- OUTSIDE RECORDS SUMMARY | 2024-11-18 17:07 | XMS_ITS | Patient Health Record ---
Author Organization [facility] Address [address] [place] [address] Care Team Providers Care Finance Advisor Name Role Phone Sky KYLE, Caitlyn Primary Care Provider Unavail able CINTHYA ROJO Unavailable [phone] Emergency, Room Unavailable Unavailable Reason For Referral [...] Status Risk Notes Problem Right shoulder pain (4642189237) Right shoulder pain (M25.511) Active confirmed Problem Left shoulder pain (3313207567) Left shoulder pain (M25.512) Active confirmed Problem [id number] Balance disorder (R26.89) Active confirmed Problem [id number] Right anterior knee pain (M25.561) Active confirmed Problem [id number] Osteoarthritis o f carpometacarpal (CMC) joint of both thumbs (M18.0) Active confirmed Problem [id number] Arthritis of carpometacarpal (CMC) joint of both thumbs (M18.0) Active confirmed Plan Of Treatment No Information Insurance Providers Payer Name Payer Address Payer Phone Subscriber Number Group Number Insured Name Patient Relationship to Insured Coverage Start Date Coverage End Date Medicare [address] [place] [id number] Lucita Young Self - patient is the insured [address] [facility] [place] [phone] [id number] Lucita Young Self - patient is the insured Medications Administered Medication Instructions Date of Administration Dosage Notes AspInj Large Joint Bursa UGI 04/28/2023 AspInj Small Joint Bursa 04/18/2023 Celestone 04/18/2023 6 mg Celestone 04/28/2023 3 mg Medical (General) History Medical History History ICD Code anxiety attention problems depression osteoprosis Surgical History Surgery Date(Month/Year) appendix removed Right TKR-[place] 11/02/2021
--- OUTSIDE RECORDS SUMMARY | 2024-11-18 17:07 | XMS_ITS ---
Author Organization [facility] Address [address] [place] [phone] Care Team Providers Care Oncology Navigator Name Role Phone Sky KYLE, Caitlyn Primary Care Provider Unavail able CINTHYA ROJO Unavailable [phone] Emergency, Room Unavailable Unavailable CASPER SANTOS Unavailable [phone] REASON FOR VISIT left shoulder fx Encounters Encounter Location Date Provider Diagnosis C[facility] [address] [place] [phone] 07/25/2023 CAS[facility] SANTOS Plan Of Treatment No Information Progress Notes * Lucita PAREKHDOB:[birth year] (73 yo F)Acc No.[id number]:07/25/2023 Progress Notes Patient:?Lucita PAREKH Provider:?DAT Chamberlain :1950???Age:72 Y???Sex:Female D ate:07/25/2023 Address:[address] [place], [place] [phone] Pcp:Caitlyn Swanson NP Subjective: * Chief Complaints: * ???1. Left shoulder fx. * Medical History:? Objective: * Vitals:? Assessment: Plan: * Treatment: * * Electronic signature of JOYCE CLARK on 11/18/2024 at 05:07 PM EDT Sign off status: Pending * Provider:?DAT Chamberlain Date: ?07/25/2023 Generated for Kirsten rhodes/[employer]/Janell on:?11/18/2024 05:07 PM EDT
--- OUTSIDE RECORDS SUMMARY | 2024-11-18 17:07 | XMS_ITS | Clinical Summary ---
Author Organization [facility] Address [address] [place] [address] Care Team Providers Care Afternoon Babysitter Name Role Phone Caitlyn Swanson MIKEY Primary [...] back to higher dose Chronic atrial fibrillation ([facility]) 08/22/2022 Fractures 02/09/2022 Overview (07/01/2022): Per ot: Fractures of ribs 3 and 4 (left side), Fractures of both wrists and left thumb Osteopenia 06/04/2021 Renal cyst, right 04/25/2019 History of basal cell carcinoma 06/13/2018 Overview (06/11/2024): BCC 06/21 left arm (superficial) Sees annually DR Jaguar Cardona Ma 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 ([facility]) 02/09/2018 Overview (09/19/2024): 06/11/2024 PHQ-9 Total Score [...] recurrent, chronic (HCC-CMS) 12/23/2013 06/08/2023 Overview (07/01/2022): [place] admission 09/2016, 05/2017, [facility] Ad[facility] 08/2017 - intentional overdose hx x2 , ECT therapy 05/2017, outside psychiatric care Dr Barry Encounters Date Type Department Care Team Description 09/24/2024 8:20 AM EST Office Visit [facility] [address] [place] [address] Lani Sanz PA-C Black stool (Primary Dx); Viral gastroenteritis 09/19/2024 2:40 PM EST Office Visit [facility] [address] [place] [phone] aCitlyn Swanson CFNP Chronic atrial fibrillation (HCC-CMS) (Primary Dx); Major depression, recurrent, chronic (HCC-CMS); Severe major depression without psychotic features (HCC-CMS) 08/22/2024 3:00 PM EST Office Visit [facility] [address] [place] [address] Caitlyn Swanson CFNP Major depression, [...] 05/03/2022, 07/10 Hepatitis C Screening Completed 06/08/2023 [id number] Completed 06/11/2024, 06/04, 05/30/2021, Additional history exists Imm-Influenza Completed 06/11/2024, 06/04, 08/22/2022, Additional history exists Procedures Procedure Name Priority Date/Time Associated Diagnosis Comments HEALTH HISTORY SCANNED DOCUMENT 11/11/2024 3:00 AM EDT MEDICATIONS SCANNED DOCUMENT 10/16/2024 3:00 AM EST [...] Recently Relevant to Health Maintenance Results * HEALTH HISTORY SCANNED DOCUMENT (11/11/2024 3:00 AM EDT) 11/11/2024 3:00 AM EDT Caitlyn Swanson CFNP SCAN OTHER ORDERS Final Resu lt * MEDICATIONS SCANNED DOCUMENT (10/16/2024 3:00 AM EST) 10/16/2024 3:00 AM EST [facility] SCAN MEDS OTHER ORDER S Final Result * (ABNORMAL) BLOOD COUNT COMPLETE AUTOMATED (09/24/2024 9:44 AM EST) WHITE BLOOD CELL COUNT 8.9 3.8 - 10.8 Thousand/ uL 09/24/2024 8:21 PM EST [facility] RED BLOOD CELL COUNT 4.91 3.80 - 5.10 Million/u L 09/24/2024 8:21 PM EST [facility] HEMOGLOBIN 15.3 11.7 - 15.5 g/dL 09/24/2024 8:21 PM EST [facility] HEMATOCRIT 46.6(H) 35.0 - 45.0 % 09/24/2024 8:21 PM EST [facility] MCV 94.9 80.0 - 100.0 fL 09/24/2024 8:21 PM EST [facility] MCH 31.2 27.0 - 33.0 pg 09/24/2024 8:21 PM EST [facility] MCHC 32.8 32.0 - 36.0 g/dL 09/24/2024 8:21 PM EST [facility] RDW 11.8 11.0 - 15.0 % 09/24/2024 8:21 PM EST [facility] PLATELET COUNT 290 140 - 400 Thousand/ uL 09/24/2024 8:21 PM EST [facility] MPV 9.8 7.5 - 12.5 fL 09/24/2024 8:21 PM EST [email or web address] Blood Blood / Unknown 09/24/2024 9 :44 AM EST 09/24/2024 4:58 PM EST Narrative [facility] - 09/24/2024 8:30 PM EST FASTING:YES For adults, a slight decrease in the calculated MCHC value (in the range of 30 to 32 g/dL) is most likely not clinically significant; however, it should be interpreted with caution in correlation with other red cell parameters and the patient's clinical condition. us Lani Sanz PA-C LAB - BLOOD DRAW Final Resul t [facility] [address] [address], [facility] [address] [address] * (ABNORMAL) COMPREHENSIVE METABOLIC PANEL (09/24/2024 9:44 AM EST) Only the most recent of2 resultswithin the time period is included. GLUCOSE 105(H) 65 - 99 mg/dL 09/24/2024 6:49 PM EST [facility] UREA NITROGEN (BUN) 15 7 - 25 mg/dL 09/24/2024 6:49 PM EST [facility] CREATININE (blood) 0.77 0.60 - 1.00 mg/dL 09/24/2024 6:49 PM EST [facility] EGFR 81 > OR = 60 mL/min/1. 73m2 09/24/2024 6:49 PM EST [facility] BUN/CREATININE RATIO SEE NOTE: 6 - 22 (calc) 09/24/2024 6:49 PM EST [facility] SODIUM 136 135 - 146 mmol/L 09/24/2024 6:49 PM EST [facility] POTASSIUM 4.3 3.5 - 5.3 mmol/L 09/24/2024 6:49 PM EST [facility] CHLORIDE 101 98 - 110 mmol/L 09/24/2024 6:49 PM EST [email or web address] CARBON DIOXIDE 28 20 - 32 mmol/L 09/24/2024 6:49 PM EST [email or web address] CALCIUM 10.1 8.6 - 10.4 mg/dL 09/24/2024 6:49 PM EST [email or web address] PROTEIN, TOTAL 6.7 6.1 - 8.1 g/dL 09/24/2024 6:49 PM EST [email or web address] ALBUMIN 4.3 3.6 - 5.1 g/dL 09/24/2024 6:49 PM EST [email or web address] GLOBULIN 2.4 1.9 - 3.7 g/dL (calc) 09/24/2024 6:49 PM EST [email or web address] ALBUMIN/GLOBULI N RATIO 1.8 1.0 - 2.5 (calc) 09/24/2024 6:49 PM EST [email or web address] BILIRUBIN, TOTAL 0.4 0.2 - 1.2 mg/dL 09/24/2024 6:49 PM EST [email or web address] ALKALINE PHOSPHATASE 82 37 - 153 U/L 09/24/2024 6:49 PM EST [email or web address] AST 15 10 - 35 U/L 09/24/2024 6:49 PM EST [email or web address] ALT 12 6 - 29 U/L 09/24/2024 6:49 PM EST [email or web address] Blood Blood / Unknown 09/24/2024 9 :44 AM EST 09/24/2024 4:49 PM EST Narrative [facility] - 09/24/2024 6:59 PM EST FASTING:YES . ? Fasting reference interval . For someone without known diabetes, a glucose value between 100 and 125 mg/dL is consistent with prediabetes and should be confirmed with a follow-up test. . ?? Not Reported: BUN and Creatinine are within ?? reference range. . Lani Sanz PA-C LAB - BLOOD DRAW Final Resul t [facility] [address] [place] [address], [email or web address] [address] [place] [phone] * (ABNORMAL) HEMOCUE HEMOGLOBIN (POCT) (09/24/2024 9:14 AM EST) HEMOGLOBIN 15.3(A) 12 - 15 g/dL [facility] Blood Blood / Unknown 09/24/2024 9 :14 AM EST Lani Sanz PA-C LAB - BLOOD DRAW Final Resul t Performing Organization Address [facility] de Phone Number [facility] [address] [place] [address], * VITAMIN B12 & FOLATE (09/19/2024 2:00 PM EST) Pathologist [facility] VITAMIN B12 622 200 - 1,100 pg/mL 09/20/2024 3:31 AM EST [email or web address] FOLATE, SERUM 8.1 ng/mL 09/20/2024 3:31 AM EST [email or web address] Blood Blood / Unknown 09/19/2024 2 :00 PM EST 09/20/2024 2:42 AM EST Narrative [facility] - 09/20/2024 3:37 AM EST FASTING:YES ? Reference Range ? Low: ? <3.4 ? Borderline: ?3.4-5.4 ? Normal: ?>5.4 . Caitlyn JENSEN LAB - BLOOD DRAW Final Resul t Performing Organization Address City/[facility]/ZIP Co de Phone Number [facility] [address] [address], [facility] [address] [place] [address] * (ABNORMAL) BLOOD COUNT COMPLETE AUTO&AUTO DIFRNTL WBC (09/19/2024 2:00 PM EST) [facility] WHITE BLOOD CELL COUNT 11.6(H) 3.8 - 10.8 Thousand/ uL 09/20/2024 2:24 AM EST [facility] RED BLOOD CELL COUNT 4.66 3.80 - 5.10 Million/u L 09/20/2024 2:24 AM EST [facility] HEMOGLOBIN 14.5 11.7 - 15.5 g/dL 09/20/2024 2:24 AM EST [facility] HEMATOCRIT 44.8 35.0 - 45.0 % 09/20/2024 2:24 AM [employer] [facility] MCV 96.1 80.0 - 100.0 fL 09/20/2024 2:24 AM [employer] [facility] MCH 31.1 27.0 - 33.0 pg 09/20/2024 2:24 AM [employer] [facility] MCHC 32.4 32.0 - 36.0 g/dL 09/20/2024 2:24 AM [employer] [facility] RDW 11.8 11.0 - 15.0 % 09/20/2024 2:24 AM [employer] [facility] PLATELET COUNT 349 140 - 400 Thousand/ uL 09/20/2024 2:24 AM [employer] [facility] MPV 9.7 7.5 - 12.5 fL 09/20/2024 2:24 AM [employer] [facility] ABSOLUTE NEUTROPHILS 6,392 1,500 - 7,800 cells/uL 09/20/2024 2:24 AM [employer] [facility] ABSOLUTE LYMPHOCYTES 4,141(H) 850 - 3,900 cells/uL 09/20/2024 2:24 AM [employer] [facility] ABSOLUTE MONOCYTES 940 200 - 950 cells/uL 09/20/2024 2:24 AM [employer] [facility] ABSOLUTE EOSINOPHILS 81 15 - 500 cells/uL 09/20/2024 2:24 AM [employer] [facility] ABSOLUTE BASOPHILS 46 0 - 200 cells/uL 09/20/2024 2:24 AM [employer] [facility] NEUTROPHILS PCT 55.1 % 2:24 AM [employer] [facility] LYMPHOCYTES 35.7 % 09/20/2024 2:24 AM [employer] [facility] MONOCYTES 8.1 % 09/20/2024 2:24 AM EST [facility] EOSINOPHILS 0.7 % 09/20/2024 2:24 AM EST [facility] BASOPHILS 0.4 % 09/20/2024 2:24 AM EST [facility] Blood Blood / Unknown 09/19/2024 2 :00 PM EST 09/20/2024 1:44 AM EST [facility] - 09/20/2024 2:31 AM EST FASTING:YES For adults, a slight decrease in the calculated MCHC value (in the range of 30 to 32 g/dL) is most likely not clinically significant; however, it should be interpreted with caution in correlation with other red cell parameters and the patient's clinical condition. Caitlyn JENSEN LAB - BLOOD DRAW Final Resul t [facility] [address] [address], [facility] [address] [address] * LIPID PANEL (09/19/2024 2:00 PM EST) CHOLESTEROL, TOTAL 161 <200 mg/dL 09/20/2024 4:30 AM EST [facility] HDL CHOLESTEROL 62 > OR = 50 mg/dL 09/20/2024 4:30 AM EST [facility] TRIGLYCERIDES 70 <150 mg/dL 09/20/2024 4:30 AM EST [facility] LDL-CHOLESTEROL 84 mg/dL (calc) 09/20/2024 4:30 AM EST [facility] CHOL/HDLC RATIO 2.6 <5.0 (calc) 09/20/2024 4:30 AM EST [facility] NON-HDL CHOLESTEROL 99 <130 mg/dL (calc) 09/20/2024 4:30 AM EST [facility] Blood Blood / Unknown 09/19/2024 2 :00 PM EST 09/20/2024 2:42 AM EST [facility] - 09/20/2024 4:33 AM EST FASTING:YES Reference [...] LDL-C. Ata GATES et al. ELEUTERIO. 2013;310(19): 8713-9717 (http://education.[employer]ridge/faq/HGU371) For patients with diabetes plus 1 major ASCVD risk factor, treating to a non-HDL-C goal of <100 mg/dL (LDL-C of <70 mg/dL) is considered a therapeutic option. Caitlyn JENSEN LAB - BLOOD DRAW Final Resul t [facility] [address] [place] [address], [facility] [address] [address] * ACUTE HEPATITIS PANEL W/RFLX (06/08/2023 1:29 PM EDT) HEPATITIS A IGM ANTIBODY NON-REACT JCARLOS NON-REACT JCARLOS 06/09/2023 3:07 AM EDT [facility] HEPATITIS B SURFACE ANTIGEN NON-REACT JCARLOS NON-REACT JCARLOS 06/09/2023 3:07 AM EDT [facility] HEPATITIS B CORE IGM ANTIBODY NON-REACT JCARLOS NON-REACT JCARLOS 06/09/2023 3:07 AM EDT [facility] HEPATITIS C ANTIBODY NON-REACT JCARLOS NON-REACT JCARLOS 06/09/2023 3:07 AM EDT [facility] Blood Blood / Unknown 06/08/2023 1 :29 PM EDT 06/09/2023 1:31 AM EDT Narrative [facility] - 06/09/2023 4:41 AM EDT FASTING:UNKNOWN . HCV antibody was non-reactive. There is no laboratory evidence of HCV infection. . In most cases, no further action is required. However, if recent HCV exposure is suspected, a test for HCV RNA (test code 47885) is suggested. . For additional information please refer to http://education.[employer]/faq/ANO62d1 (This link is being provided for informational/ educational purposes only.) . . For additional information, please refer to http://[place].[employer]/faq/PLW556 (This link is being provided for informational/ educational purposes only.) . Caitlyn JENSEN LAB - BLOOD DRAW Final Resul t [facility] [address] [address], [facility] [address] [place] [address] from Last 3 Months or Most Recently Relevant to Health Maintenance Insurance MEDICARE - [place] [facility] Member Subscriber Plan / Payer (Ef fective 2022-Present) Name:Lucita Parekh Relation to Subscriber:Self Name:Lucita Parekh Payer ID:[id number] Group ID:Not on file [facility] Address: [address] [place] [address] Advance Directives Documents on File Type Date Recorded Patient Supervisor Cloth Winding Expl anation Directives to Physicians 08/22/2024 12:00 AM [facility] HCP Care Teams Afternoon Babysitter Relationship Specialty Start Date End Date Caitlyn Swanson CFNP [address] [place] [address] PCP - General ACT TUTOR Nurse Practitioner 04/11/23
--- OUTSIDE RECORDS SUMMARY | 2024-11-18 17:08 | XMS_ITS ---
Author Organization [facility] Address [address] [place] [address] Care Team Providers Care Hand Scraper Name Role Phone Caitlyn Swanson NP Primary Care Provider Unavail able CINTHYA ROJO Unavailable [phone] Emergency, Room Unavailable Unavailable HARESH SANTOS Unavailable [phone] REASON FOR VISIT left shoulder fx Medications [...] Encounters Encounter Location Date Provider Diagnosis [facility] [address] [place] [address] 07/24/2023 HARESH SANTOS Plan Of Treatment No Information Progress Notes * Jing PAREKHB:[birth year] (73 yo F)Acc No.[id number]:07/24/2023 Progress Notes Patient:?Lucita PAREKH Provider:?DAT Chamberlain :1950???Age:72 Y???Sex:Female D ate:07/24/2023 Address:[address] [place], [place] [phone] Pcp:Caitlyn Swanson NP Subjective: * Chief Complaints: * ???1. Left shoulder fx. * Medical History:?Anxiety, At tention problems, Depression, Osteoprosis. * Surgical History:?appendix r emoved , Right TKR-[place] 11/02/2021. * Family History:?Father: angus nosed with [...] DAT Date: ?07/24/2023 Generated for Kirsten rhodes/[employer]/Janell on:?11/18/2024 05:07 PM EDT
== END 2024-11-18 14:52 | disposition home or self-care (01) ==
LOC: HO.PMC 14:33
PROVIDERS: PCP Nurse Practitioner Family; Visit Provider Anesthesiology
DX: M25.511 Pain in right shoulder (principal); M19.011 Primary osteoarthritis, right shoulder
CPT/HCPCS: 99213

== ENCOUNTER → 2024-11-18 14:33 | Outpatient (BNVA) | payer MEDICARE, OTHER, SELFPAY | PROVIDERS: PCP Nurse Practitioner Family; Visit Provider Anesthesiology | DX: M25.511 Pain in right shoulder (principal); M19.011 Primary osteoarthritis, right shoulder | CPT/HCPCS: 99212 ==

== ENCOUNTER 2024-11-25 15:27 | Outpatient (AMB) | payer MEDICARE, OTHER, SELFPAY ==
--- NOTE | 2024-11-25 15:32 | MHC.OFFVIS ---
Vital Signs 11/25/24 15:33 Height 5 ft 6 in Weight 181 lb BMI 29.2 Intake Visit Reasons: follow up Gait / Mobility Intake Note: patient following up on MRI done 09/06/24;vitamin b12 labs 09/05/24 Allergies No Known Allergies [No Known Allergies*] Allergy (Verified 11/25/24 15:35) HPI Comments Details: 73y/o female comes for f/u of gait abnormality.MRI brain was normal. No evidence of hydrocephalus.she exercises regularly . No falls. she sees pain specialist for her shoulder and she has Left knee replacement scheduled for March 18 No falls .she walks good when her joint pain is controlled. she uses a cane . History from initial visit- About 5 years ago she was admitted for depression and prior to her discharge she was trialed on a new medication for depression, 3 weeks after she started the medication she noticed that her balance was off. she also had an episode where she felt like her left leg was stuck and fell. she had similar episodes 3 more times. Her psychiatrist tapered off the new antidepressant and started PT.with PT she recovered about 85 %. she still has rare falls . last fall was over 1 year ago.she walks with a cane and still feels off balance. she denies dizziness .No double vision, tremors. she denies neck. she also has Lumbar spinal stenosis and arthritis. No h/o heavy alcohol use. she sees ortho for her knees .she had right knee replacement she has urinary frequency and urgency. she exercises everyday- chair yoga , core classes etc.she has mild memory issues. she has chronic depression. [facility] Medical History Gait apraxia Arthritis of left knee Gait disturbance HTN (hypertension) Osteoarthritis IBS (irritable bowel syndrome) Major depression, recurrent, chronic Vitamin D deficiency Abnormal gait Pure hypercholesterolemia Severe major depression without psychotic features Hx of basal cell carcinoma Osteopenia Paroxysmal atrial fibrillation Surgical History History of esophagogastroduodenoscopy (EGD) Hx of colonoscopy Hx of breast biopsy Hx of hysterectomy Hx of appendectomy Family History Father No problems noted. Mother No problems noted. Social History Are you a primary health care specialist to a significant other at home: No Do you presently have visiting nurse or other home services: Yes (SCHEME TECHNICIAN 4 hours per week) Comment: aware of trip hazard Patient Tobacco Use Status: Former Tobacco user Tobacco use type: Cigarette Advance Directives Date on File: 11/11/21 service: No Current occupational status: retired Current occupation: rt handed Physical Exam Vital Signs: BMI result Body Mass Index 29.2 Const General: cooperative and comfortable Nutritional Appearance: overweight Orientation/consciousness: patient oriented x3 Eyes Pupils: Equal, round and reactive pupils present Neuro Other: gait- with cane , narrow base, antalgic , guards her left leg General: patient oriented x3, tone normal, moves all extremities and no focal motor deficits Cranial nerves: Yes Facial sensation intact/muscles of mastication intact, Yes Equal, round and reactive pupils present, Yes Bilaterally intact EOM present, Yes Nystagmus not present, Yes Normal facial strength present and Yes Midline tongue present Cognition (Neuro): normal cognition Gait exam (Neuro): Antalgic gait present Motor exam (neuro): Normal motor muscle tone present throughout Coordination: [id number] test normal Assessment & Plan Assessment & Plan (1) Gait apraxia: Comment: multifactorial, musculoskeletal issues. left knee pain, fear of falls, anxiety etc Code(s): R48.2 - Apraxia Category: Medical Plan MRI brain - Continue PT and Pain specialist Scheduled for left knee replacement in March No evidence of parkinsons. F/u psychiatry Coding Level of Care Code Est Pt Level 4 (86292) Diagnoses Gait apraxia R48.2
[2024-11-25 15:33] VITALS: BMI 29.2
--- OUTSIDE RECORDS SUMMARY | 2024-11-25 18:18 | XMS_ITS | Clinical Summary ---
Author Organization [address] Address [address] [place] [phone] Phone Care Team Providers Care Assistant Men'S Lacrosse Coach Name Role Phone Luca Thibodeaux MD Primary Care Provider [phone] Allergies No known active allergies Medications amphetamine-dex [...] Major depression, recurrent, chronic 12/23/2013 Overview (08/30/2024): [place] admission 09/2016, 05/2017, [facility] Admission 08/2017 [...] 65yo and older 08/22/2022,07/06/2021,05/11/2018 Influenza, Unspecified 08/19/2021 [employer] SARS-CoV-2 COVID-19, mRNA, LNP-S, preservative free 05/30/2021 [...] lt breast UPPER GASTROINTESTINAL ENDOSCOPY 2013 PROCEDURE: RI UPPER GI ENDOSCOPY PERFORMED; COMMENT: normal UPPER GASTROINTESTINAL ENDOSCOPY 08/2001 PROCEDURE: RI UPPER GI ENDOSCOPY PERFORMED; COMMENT: WNL APPENDECTOMY 01/2020 PROCEDURE: HISTORICAL APPENDECTOMY; COMMENT: [place] COLONOSCOPY 09/11/2020 PROCEDURE: HISTORICAL COLONOSCOPY; COMMENT: Minimal diverticulosis; 3 mm cecal polyp: Tubular adenoma. APPENDECTOMY PROCEDURE: RI APPENDECTOMY Medical History Medical History Date Comments Irritable bowel syndrome DX:Irri table bowel syndrome; COMMENT: EGD, Colonoscopy (-)08/06/01 Lumbosacral spondylosis with out myelopathy DX:Lumbosacral spondylosis w ithout myelopathy Generalized osteoarthrosis, involving hand DX:Generalized osteoarthrosi s, involving hand Dermatophytosis of foot DX:[place] tophytosis of foot Iron deficiency anemia secon [...] DX:Major depression, recurre nt, chronic (HCC); COMMENT: [place] admission 09/2016, 05/2017, [facility] Ad[facility] 08/2017 [...] is recommended in 1 year. MAMMO LOCATION: [facility], [address] [place] [address], [phone], . -------- FINAL REPORT -------- Dictated By: Domitila Joshua Dictated Date: 08/09/2024 15:18 ET Assigned Physician: Domitila Joshua Reviewed and Electronically Signed By: Domitila Joshua Signed Date: 08/09/2024 15:19 ET Workstation ID: [id number] Transcribed By: Self Edit Transcribed Date: 08/09/2024 [...] is recommended in 1 year. MAMMO LOCATION: [facility], [address] [place] [address], [id number], . -------- FINAL REPORT -------- Dictated By: Domitila Joshua Dictated Date: 08/09/2024 15:18 ET Assigned Physician: Domitila Joshua Reviewed and Electronically Signed By: Domitila Joshua Signed Date: 08/09/2024 15:19 ET Workstation ID: [id number] Transcribed By: Self Edit Transcribed Date: 08/09/2024 15:18 ET Result [facility] Caitlyn Swanson MOTION PICTURE SET UP WORKER IMG BI PROCEDURES Final Result * Hepatitis C Screening (09/15/2022) Pathologist [facility] Hepatitis C Screening Abstracted Result [facility] Historical Provider HEALTH MAINTENANCE Final Result * [...] (World Health Organization Fracture Risk Assessment) [facility] Department of Internal Medicine recommends using National [...] (World Health Organization Fracture Risk Assessment) [facility] Department of Internal Medicine recommendsusing National Osteoporosis [...] to Health Maintenance Insurance MEDICARE [facility] Care Teams Assistant Men'S Lacrosse Coach Relationship Specialty Start Date End Date Luca Thibodeaux MD [address] [place] [address] PCP - General Internal Medicine 01/10/22
--- OUTSIDE RECORDS SUMMARY | 2024-11-25 18:18 | XMS_ITS ---
Author Organization [facility] Address [address] [place] [phone] Care Team Providers Care Brineyard Supervisor Name Role Phone Sky KYLE, Caitlyn Primary Care Provider Unavail able CINTHYA ROJO Unavailable [phone] Emergency, Room Unavailable Unavailable CASPER SANTOS Unavailable [phone] REASON FOR VISIT left shoulder fx Encounters Encounter Location Date Provider Diagnosis CCOHY [facility] [address] [place] [phone] 07/25/2023 CASPER SANTOS Plan Of Treatment No Information Progress Notes * Lucita PAREKHDOB:[birth year] (73 yo F)Acc No.[id number]:07/25/2023 Progress Notes Patient:?Lucita PAREKH Provider:?DAT Chamberlain :1950???Age:72 Y???Sex:Female D ate:07/25/2023 Address:[address] [place], [place] [phone] Pcp:Caitlyn Swanson NP Subjective: * Chief Complaints: * ???1. Left shoulder fx. * Medical History:? Objective: * Vitals:? Assessment: Plan: * Treatment: * * Electronic signature of JOYCE CLARK on 11/25/2024 at 06:18 PM EDT Sign off status: Pending * Provider:?DAT Chamberlain Date: ?07/25/2023 Generated for Kirsten rhodes/[employer]/Janell on:?11/25/2024 06:18 PM EDT
--- OUTSIDE RECORDS SUMMARY | 2024-11-25 18:18 | XMS_ITS | Clinical Summary ---
Author Organization [facility] Address [address] [place] [address] Care Team Providers Care Facilities Operations Technician Name Role Phone Caitlyn Swanson MIKEY Primary [...] back to higher dose Chronic atrial fibrillation ([facility]) 08/22/2022 Fractures 02/09/2022 Overview (07/01/2022): Per ot: Fractures of ribs 3 and 4 (left side), Fractures of both wrists and left thumb Osteopenia 06/04/2021 Renal cyst, right 04/25/2019 History of basal cell carcinoma 06/13/2018 Overview (06/11/2024): BCC 06/21 left arm (superficial) Sees annually DR Jaguar Cardona Ma 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 ([facility]) 02/09/2018 Overview (09/19/2024): 06/11/2024 PHQ-9 Total Score [...] recurrent, chronic (HCC-CMS) 12/23/2013 06/08/2023 Overview (07/01/2022): [place] admission 09/2016, 05/2017, [facility] Admission 08/2017 - intentional overdose hx x2 , ECT therapy 05/2017, outside psychiatric care Dr Barry Encounters Date Type Department Care Team Description 09/24/2024 8:20 AM EST Office Visit [facility] [address] [place] [address] Lani Sanz PA-C Black stool (Primary Dx); Viral gastroenteritis 09/19/2024 2:40 PM EST Office Visit [facility] [address] [place] [phone] Caitlyn Swanson CFNP Chronic atrial fibrillation (HCC-CMS) (Primary Dx); Major depression, recurrent, chronic (HCC-CMS); Severe major depression without psychotic features (HCC-CMS) from Last 3 Months Immunizations Immunization Administration Dates Next Due Flu, Adjuvant, 65y+ [...] 05/03/2022, 07/10 Hepatitis C Screening Completed 06/08/2023 [id number] Completed 06/11/2024, 06/04, 05/30/2021, Additional history exists [...] 10.8 Thousand/ uL 09/24/2024 8:21 PM EST [facility] RED BLOOD CELL COUNT 4.91 3.80 - 5.10 Million/u L 09/24/2024 8:21 PM EST [facility] HEMOGLOBIN 15.3 11.7 - 15.5 g/dL 09/24/2024 8:21 PM EST [facility] HEMATOCRIT 46.6(H) 35.0 - 45.0 % 09/24/2024 8:21 PM EST [facility] MCV 94.9 80.0 - 100.0 fL 09/24/2024 8:21 PM EST [facility] MCH 31.2 27.0 - 33.0 pg 09/24/2024 8:21 PM EST [facility] MCHC 32.8 32.0 - 36.0 g/dL 09/24/2024 8:21 PM EST [facility] RDW 11.8 11.0 - 15.0 % 09/24/2024 8:21 PM EST [facility] PLATELET COUNT 290 140 - 400 Thousand/ uL 09/24/2024 8:21 PM EST [facility] MPV 9.8 7.5 - 12.5 fL 09/24/2024 8:21 PM EST [facility] Blood Blood / Unknown 09/24/2024 9 :44 AM EST 09/24/2024 4:58 PM EST Narrative [facility] - 09/24/2024 8:30 PM EST FASTING:YES For adults, a slight decrease in the calculated MCHC value (in the range of 30 to 32 g/dL) is most likely not clinically significant; however, it should be interpreted with caution in correlation with other red cell parameters and the patient's clinical condition. us Lani Sanz PA-C LAB - BLOOD DRAW Final Resul t [facility] [address] [address], [facility] [address] [place] [address] * (ABNORMAL) COMPREHENSIVE METABOLIC PANEL (09/24/2024 9:44 AM EST) Only the most recent of2 resultswithin the time period is included. GLUCOSE 105(H) 65 - 99 mg/dL 09/24/2024 6:49 PM EST [facility] UREA NITROGEN (BUN) 15 7 - 25 mg/dL 09/24/2024 6:49 PM EST [facility] CREATININE (blood) 0.77 0.60 - 1.00 mg/dL 09/24/2024 6:49 PM EST [facility] EGFR 81 > OR = 60 mL/min/1. 73m2 09/24/2024 6:49 PM EST [facility] [employer] BUN/CREATININE RATIO SEE NOTE: 6 - 22 (calc) 09/24/2024 6:49 PM EST [facility] SODIUM 136 135 - 146 mmol/L 09/24/2024 6:49 PM EST [facility] [employer] POTASSIUM 4.3 3.5 - 5.3 mmol/L 09/24/2024 6:49 PM EST [facility] [employer] CHLORIDE 101 98 - 110 mmol/L 09/24/2024 6:49 PM EST [facility] [employer] CARBON DIOXIDE 28 20 - 32 mmol/L 09/24/2024 6:49 PM EST [facility] [employer] CALCIUM 10.1 8.6 - 10.4 mg/dL 09/24/2024 6:49 PM EST [facility] [employer] PROTEIN, TOTAL 6.7 6.1 - 8.1 g/dL 09/24/2024 6:49 PM EST [facility] [employer] ALBUMIN 4.3 3.6 - 5.1 g/dL 09/24/2024 6:49 PM EST [facility] [employer] GLOBULIN 2.4 1.9 - 3.7 g/dL (calc) 09/24/2024 6:49 PM EST [facility] [employer] ALBUMIN/GLOBULI N RATIO 1.8 1.0 - 2.5 (calc) 09/24/2024 6:49 PM EST [facility] [employer] BILIRUBIN, TOTAL 0.4 0.2 - 1.2 mg/dL 09/24/2024 6:49 PM EST [facility] [employer] ALKALINE PHOSPHATASE 82 37 - 153 U/L 09/24/2024 6:49 PM EST [facility] [employer] AST 15 10 - 35 U/L 09/24/2024 6:49 PM EST [facility] ALT 12 6 - 29 U/L 09/24/2024 6:49 PM EST [facility] [employer] Blood Blood / Unknown 09/24/2024 9 :44 AM EST 09/24/2024 4:49 PM EST Narrative [facility] - 09/24/2024 6:59 PM EST FASTING:YES . ? Fasting reference interval . For someone without known diabetes, a glucose value between 100 and 125 mg/dL is consistent with prediabetes and should be confirmed with a follow-up test. . ?? Not Reported: BUN and Creatinine are within ?? reference range. . us Lani Sanz PA-C LAB - BLOOD DRAW Final Resul t [facility] [address] [place] [address], [facility] [address] [place] [phone] * (ABNORMAL) HEMOCUE HEMOGLOBIN (POCT) (09/24/2024 9:14 AM EST) HEMOGLOBIN 15.3(A) 12 - 15 g/dL [facility] Blood Blood / Unknown 09/24/2024 9 :14 AM EST us Lani COOK-C LAB - BLOOD DRAW Final Resul t Performing Organization Address City/[facility] Co de Phone Number [facility] [address] [place] [address], * VITAMIN B12 & FOLATE (09/19/2024 2:00 PM EST) Pathologist [facility] VITAMIN B12 622 200 - 1,100 pg/mL 09/20/2024 3:31 AM EST [facility] [employer] FOLATE, SERUM 8.1 ng/mL 09/20/2024 3:31 AM EST [facility] [employer] Blood Blood / Unknown 09/19/2024 2 :00 PM EST 09/20/2024 2:42 AM EST Narrative [facility] - 09/20/2024 3:37 AM EST FASTING:YES ? Reference Range ? Low: ? <3.4 ? Borderline: ?3.4-5.4 ? Normal: ?>5.4 . Caitlyn JENSEN LAB - BLOOD DRAW Final Resul t [facility] [address] [address], [facility] [employer] [address] [place] [phone] * (ABNORMAL) BLOOD COUNT COMPLETE AUTO&AUTO DIFRNTL WBC (09/19/2024 2:00 PM EST) Pathologist [facility] WHITE BLOOD CELL COUNT 11.6(H) 3.8 - 10.8 Thousand/ uL 09/20/2024 2:24 AM EST [facility] RED BLOOD CELL COUNT 4.66 3.80 - 5.10 Million/u L 09/20/2024 2:24 AM [facility] HEMOGLOBIN 14.5 11.7 - 15.5 g/dL 09/20/2024 2:24 AM [facility] HEMATOCRIT 44.8 35.0 - 45.0 % 09/20/2024 2:24 AM [facility] MCV 96.1 80.0 - 100.0 fL 09/20/2024 2:24 AM [facility] MCH 31.1 27.0 - 33.0 pg 09/20/2024 2:24 AM [facility] MCHC 32.4 32.0 - 36.0 g/dL 09/20/2024 2:24 AM [facility] RDW 11.8 11.0 - 15.0 % 09/20/2024 2:24 AM [facility] PLATELET COUNT 349 140 - 400 Thousand/ uL 09/20/2024 2:24 AM [facility] MPV 9.7 7.5 - 12.5 fL 09/20/2024 2:24 AM [facility] ABSOLUTE NEUTROPHILS 6,392 1,500 - 7,800 cells/uL 09/20/2024 2:24 AM [facility] ABSOLUTE LYMPHOCYTES 4,141(H) 850 - 3,900 cells/uL 09/20/2024 2:24 AM [facility] ABSOLUTE MONOCYTES 940 200 - 950 cells/uL 09/20/2024 2:24 AM [facility] ABSOLUTE EOSINOPHILS 81 15 - 500 cells/uL 09/20/2024 2:24 AM [facility] ABSOLUTE BASOPHILS 46 0 - 200 cells/uL 09/20/2024 2:24 AM [facility] NEUTROPHILS PCT 55.1 % 2:24 AM [facility] LYMPHOCYTES 35.7 % 09/20/2024 2:24 AM [facility] MONOCYTES 8.1 % 09/20/2024 2:24 AM [facility] EOSINOPHILS 0.7 % 09/20/2024 2:24 AM [facility] BASOPHILS 0.4 % 09/20/2024 2:24 AM [facility] Blood Blood / Unknown 09/19/2024 2 :00 PM EST 09/20/2024 1:44 AM EST [facility] - 09/20/2024 2:31 AM EST FASTING:YES For adults, a slight decrease in the calculated MCHC value (in the range of 30 to 32 g/dL) is most likely not clinically significant; however, it should be interpreted with caution in correlation with other red cell parameters and the patient's clinical condition. Caitlyn Swanson ANABELLA LAB - BLOOD DRAW Final Resul t [facility] [address] [address], [facility] [address] [place] [address] * LIPID PANEL (09/19/2024 2:00 PM EST) [facility] CHOLESTEROL, TOTAL 161 <200 mg/dL 09/20/2024 4:30 AM EST [facility] HDL CHOLESTEROL 62 > OR = 50 mg/dL 09/20/2024 4:30 AM EST [facility] TRIGLYCERIDES 70 <150 mg/dL 09/20/2024 4:30 AM EST [facility] LDL-CHOLESTEROL 84 mg/dL (calc) 09/20/2024 4:30 AM EST [facility] CHOL/HDLC RATIO 2.6 <5.0 (calc) 09/20/2024 4:30 AM EST [facility] NON-HDL CHOLESTEROL 99 <130 mg/dL (calc) 09/20/2024 4:30 AM EST [facility] Blood Blood / Unknown 09/19/2024 2 :00 PM EST 09/20/2024 2:42 AM EST [employer] [facility] - 09/20/2024 4:33 AM EST FASTING:YES [...] LDL-C. Ata GATES et al. ELEUTERIO. 2013;310(19): 8062-1825 (http://joblocal.Agitar.EnterpriseDB/faq/UPT302) For patients with diabetes plus 1 major ASCVD risk factor, treating to a non-HDL-C goal of <100 mg/dL (LDL-C of <70 mg/dL) is considered a therapeutic option. Caitlyn Swanson [facility] LAB - BLOOD DRAW Final Resul t [facility] [address] [address], [facility] [address] [address] * ACUTE HEPATITIS PANEL W/RFLX (06/08/2023 1:29 PM EDT) HEPATITIS A IGM ANTIBODY NON-REACT JCARLOS NON-REACT JCARLOS 06/09/2023 3:07 AM EDT [facility] HEPATITIS B SURFACE ANTIGEN NON-REACT JCARLOS NON-REACT JCARLOS 06/09/2023 3:07 AM EDT [facility] HEPATITIS B CORE IGM ANTIBODY NON-REACT JCARLOS NON-REACT JCARLOS 06/09/2023 3:07 AM EDT [facility] HEPATITIS C ANTIBODY NON-REACT JCARLOS NON-REACT JCARLOS 06/09/2023 3:07 AM EDT [facility] Blood Blood / Unknown 06/08/2023 1 :29 PM EDT 06/09/2023 1:31 AM EDT Narrative [facility] - 06/09/2023 4:41 AM EDT FASTING:UNKNOWN . HCV antibody was non-reactive. There is no laboratory evidence of HCV infection. . In most cases, no further action is required. However, if recent HCV exposure is suspected, a test for HCV RNA (test code 99907) is suggested. . For additional information please refer to http://joblocal.[employer]/faq/QRI67a1 (This link is being provided for informational/ educational purposes only.) . . For additional information, please refer to http://joblocal.[employer]/faq/KFN665 (This link is being provided for informational/ educational purposes only.) . Caitlyn JENSEN LAB - BLOOD DRAW Final Resul t [facility] [address] [address], [facility] [address] [place] [address] from Last 3 Months or Most Recently Relevant to Health Maintenance Insurance [place]ICARE - [place] [facility] Member Subscriber Plan / Payer ( fective 2022-Present) Name:Lucita Parekh Relation to Subscriber:Self Name:Lucita Parekh Payer ID:[id number] Group ID:Not on file Type:[employer] Address: [address] [place] [id number] Advance Directives Documents on File Type Date Recorded Patient Apprenticeship Training Representative Expl anation Directives to Physicians 08/22/2024 12:00 AM CHRIS HCP Care Teams Facilities Operations Technician Relationship Specialty Start Date End Date Caitlyn Swanson CFNP [address] [place] [address] PCP - General BIOSTATISTICIAN Nurse Practitioner 04/11/23
--- OUTSIDE RECORDS SUMMARY | 2024-11-25 18:19 | XMS_ITS ---
Author Organization [facility] Address [address] [place] [address] Care Team Providers Care Bricklayer'S Assistant Name Role Phone Caitlyn Swanson NP Primary Care Provider Unavail able CINTHYA ROJO Unavailable [phone] Emergency, Room Unavailable Unavailable X CT SKAGGS Unavailable [phone] REASON FOR VISIT Left Knee Pain [...] Encounters Encounter Location Date Provider Diagnosis CCO[facility] [address] [place] [phone] 09/14/2023 CT SKAGGS Plan Of Treatment No Information Progress Notes * Lucita PAREKHDOB:[birth year] (73 yo F)Acc No.[id number]:09/14/2023 Patient:Lucita EARL Provider:?CT SKAGGS PA-C :1950???Age:72 Y???Sex:Female D ate:09/14/2023 Address:[address] [place], [place] [phone] Pcp:Caitlyn Swanson NP Subjective: * Chief Complaints: * ???1. Left Knee Pain. * Medical History:?Anxiety, At tention problems, Depression, Osteoprosis. * Surgical History:?appendix r emoved , Right TKR-[place] 11/02/2021. * Family History:?Father: diag nosed with [...] Electronic signature of ANGIE SKAGGS PA-C on 11/25/2024 at 06:18 PM EDT Sign off status: Pending * Provider:?CT SKAGGS PA-C Date :?09/14/2023 Generated for Kirsten rhodes/[employer]/Janell on:?11/25/2024 06:18 PM EDT
--- OUTSIDE RECORDS SUMMARY | 2024-11-25 18:19 | XMS_ITS ---
Author Organization [facility] Address [address] [place] [address] Care Team Providers Care Line Inspector Name Role Phone Caitlyn Swanson NP Primary Care Provider Unavail able CINTHYA ROJO Unavailable [phone] Emergency, Room Unavailable Unavailable HARESH SANTOS Unavailable [phone] REASON FOR VISIT left shoulder fx Medications [...] Encounters Encounter Location Date Provider Diagnosis CCOHY [facility] [address] [place] [address] 07/24/2023 HARESH SANTOS Plan Of Treatment No Information Progress Notes * Jing PAREKHB:[birth year] (73 yo F)Acc No.[id number]:07/24/2023 Progress Notes Patient:?Luicta PAREKH Provider:?DAT Chamberlain :1950???Age:72 Y???Sex:Female D ate:07/24/2023 Address:[address] [place], [place] [phone] Pcp:Caitlyn Swanson NP Subjective: * Chief Complaints: * ???1. Left shoulder fx. * Medical History:?Anxiety, At tention problems, Depression, Osteoprosis. * Surgical History:?appendix r emoved , Right TKR-[place] 11/02/2021. * Family History:?Father: angus nosed with [...] signature of JOYCE CLARK on 11/25/2024 at 06:19 PM EDT Sign off status: Pending * Provider:?Haresh Santos, DAT Date: ?07/24/2023 Generated for Kirsten rhodes/[employer]/Janell on:?11/25/2024 06:19 PM EDT
--- OUTSIDE RECORDS SUMMARY | 2024-11-25 18:19 | XMS_ITS | Patient Health Record ---
Author Organization [facility] Address [address] [place] [address] Care Team Providers Care Ecologist Technician Name Role Phone Sky KYLE, Caitlyn Primary Care Provider Unavail able CINTHYA ROJO Unavailable [phone] Emergency, Room Unavailable Unavailable Reason For Referral [...] Status Risk Notes Problem Right shoulder pain (0764951320) Right shoulder pain (M25.511) Active confirmed Problem Left shoulder pain (9025070238) Left shoulder pain (M25.512) Active confirmed Problem 726419282 Balance disorder (R26.89) Active confirmed Problem 349467253 Right anterior knee pain (M25.561) Active confirmed Problem [id number] Osteoarthritis o f carpometacarpal (CMC) joint of both thumbs (M18.0) Active confirmed Problem [id number] Arthritis of carpometacarpal (CMC) joint of both thumbs (M18.0) Active confirmed Plan Of Treatment No Information Insurance Providers Payer Name Payer Address Payer Phone Subscriber Number Group Number Insured Name Patient Relationship to Insured Coverage Start Date Coverage End Date Medicare [address] [place] [id number] Lucita Young Self - patient is the insured [facility] [address] [facility] [place] [phone] [id number] Lucita Young Self - patient is the insured Medications Administered Medication Instructions Date of Administration Dosage Notes AspInj Large Joint Bursa UGI 04/28/2023 AspInj Small Joint Bursa 04/18/2023 Celestone 04/18/2023 6 mg Celestone 04/28/2023 3 mg Medical (General) History Medical History History ICD Code anxiety attention problems depression osteoprosis Surgical History Surgery Date(Month/Year) appendix removed Right TKR-[place] 11/02/2021
== END 2024-11-25 16:01 | disposition home or self-care (01) ==
LOC: HO.HSMS 15:27
PROVIDERS: Visit Provider Psychiatry & Neurology Neurology
DX: R48.2 Apraxia (principal)
CPT/HCPCS: 99214

== ENCOUNTER → 2024-11-25 15:27 | Outpatient (BNVA) | payer MEDICARE, OTHER, SELFPAY | PROVIDERS: Visit Provider Psychiatry & Neurology Neurology | DX: R48.2 Apraxia (principal) | CPT/HCPCS: 99212 ==

== ENCOUNTER 2024-12-16 10:55 | Outpatient (REF) | payer MEDICARE, OTHER, SELFPAY ==
--- NOTE | ~2024-12-16 | XR_ITS ---
EXAMINATION: XR SHOULDER 2 OR MORE VIEWS RIGHT HISTORY: M25.511 - Pain in right shoulder COMPARISON: There are no prior studies available for comparison. FINDINGS: Five views of the right shoulder are submitted. Osseous mineralization is normal. There is no fracture or dislocation. There is severe osteoarthritis of the glenohumeral and acromioclavicular joints, with joint space narrowing and osteophyte formation. The soft tissues are unremarkable. XR/XR shoulder RT min 2V IMPRESSION: Severe osteoarthritis of the right shoulder as described. Electronically signed by: Kartik Olivo MD 12/17/2024 08:33 AM EDT
--- OUTSIDE RECORDS SUMMARY | 2024-12-16 12:51 | XMS_ITS | Encounter Summary ---
Author Organization [facility] Address [address] [place] [address] Care Team Providers Care Chief Passenger Ship Steward/Stewardess Name Role Phone Travis Hansen MD Primary Care Provider Sally Kim MD Primary Care Provider Luca Bolanos Primary Care Provider [phone] [facility] Primary Care Provider Unavailabl e Reason for Visit * Reason Comments E-prescribe Rx Request Encounter Details Date Type Department Care Team Description 03/23/2021 Refill Adult Medicine [address] [address] Ena Egan MD E-prescribe Rx Request Social [...] have Coronavirus / COVID-19? No / Unsure 03/26/2021 9:24 AM EDT documented as of this encounter Miscellaneous Notes * Telephone Encounter - Sharee Ji M.A. - 03/23/2021 11:05 AM EDT Lab Results Component Value Date NA 139 04/08/2019 K 4.7 04/08/2019 CO2 29 04/08/2019 CL 106 04/08/2019 BUN 20 04/08/2019 CREAT 0.70 04/08/2019 GLU 90 04/08/2019 CA 10.0 04/08/2019 GFR > 60 04/08/[address] Hansen 05/27/21 * Telephone Encounter - Poppy Che - 03/23/2021 9:38 AM EDT Patient would like script to be: E-PRESCRIBED/FAXED TO PHARMACY WHEN WAS THE PATIENT'S LAST APPOINTMENT IN ADULT MEDICINE? 02/18/21 WHEN WAS THE LAST TIME THE PATIENT SAW THEIR PCP? Has not seen Does patient have an upcoming appointment? Yes 05/27/21 (THE MEDICATION REQUESTED IS ON THE MED [...] / Plan[place] / Product Type: MEDICARE [id number] documented in this encounter Plan of Treatment Not on file documented as of this encounter Visit Diagnoses Not on filedocumented in this encounter Care Teams Chief Passenger Ship Steward/Stewardess Relationship Specialty Start Date End Date Travis Hansen MD PCP - General Internal Medicine 02/18/21 06/06/21 Sally Stewart MD PCP - General Internal Medicine 06/07/21 01/09/22 Luca Thibodeaux [address] [place], [place] [id number] PCP - General Internal Medicine 01/10/22 04/23/23 [facility], [address] [place] [address] PCP - General Internal Medicine 04/24/23 documented as of this encounter
--- OUTSIDE RECORDS SUMMARY | 2024-12-16 12:51 | XMS_ITS | Patient Health Record ---
Author Organization [facility] Address [address] [place] [address] Care Team Providers Care Agriculture Mechanic Name Role Phone Sky KYLE, Caitlyn Primary Care Provider Unavail able CINTHYA ROJO Unavailable [phone] Emergency, Room Unavailable Unavailable Reason For Referral [...] Status Risk Notes Problem Right shoulder pain (8163964754) Right shoulder pain (M25.511) Active confirmed Problem Left shoulder pain (6595595228) Left shoulder pain (M25.512) Active confirmed Problem 126825476 Balance disorder (R26.89) Active confirmed Problem 139695567 Right anterior knee pain (M25.561) Active confirmed Problem 102494644445977 Osteoarthritis o f carpometacarpal (CMC) joint of both thumbs (M18.0) Active confirmed Problem 1759338894939625 Arthritis of carpometacarpal (CMC) joint of both thumbs (M18.0) Active confirmed Plan Of Treatment No Information Insurance Providers Payer Name Payer Address Payer Phone Subscriber Number Group Number Insured Name Patient Relationship to Insured Coverage Start Date Coverage End Date Medicare [address] [place] [id number] Lucita Young Self - patient is the insured [facility] [address] [facility] [place] [id number] Lucita Young Self - patient is the insured Medications Administered Medication Instructions Date of Administration Dosage Notes AspInj Large Joint Bursa UGI 04/28/2023 AspInj Small Joint Bursa 04/18/2023 Celestone 04/18/2023 6 mg Celestone 04/28/2023 3 mg Medical (General) History Medical History History ICD Code anxiety attention problems depression osteoprosis Surgical History Surgery Date(Month/Year) appendix removed Right TKR-[place] 11/02/2021
--- OUTSIDE RECORDS SUMMARY | 2024-12-16 12:51 | XMS_ITS ---
Author Organization [facility] Address [address] [place] [address] Care Team Providers Care Programmer Analyst Consultant Name Role Phone Caitlyn Swanson NP Primary Care Provider Unavail able CINTHYA ROJO Unavailable [phone] Emergency, Room Unavailable Unavailable HARESH SANTOS Unavailable [phone] REASON FOR VISIT left shoulder fx Medications [...] Encounters Encounter Location Date Provider Diagnosis [facility] [address] [place] [address] 07/24/2023 HARESH SANTOS Plan Of Treatment No Information Progress Notes * Jing PAREKHB:[birth year] (74 yo F)Acc No.[id number]:07/24/2023 Progress Notes Patient:?Lucita PAREKH Provider:?DAT Chamberlain :1950???Age:72 Y???Sex:Female D ate:07/24/2023 Address:[address] [place], [place] [address] Pcp:Caitlyn Swanson NP Subjective: * Chief Complaints: * ???1. Left shoulder fx. * Medical History:?Anxiety, At tention problems, Depression, Osteoprosis. * Surgical History:?appendix r emoved , Right TKR-[place] 11/02/2021. * Family History:?Father: angus nosed with [...] * Electronic signature of JOYCE CLARK on 12/16/2024 at 12:51 PM EDT Sign off status: Pending * Provider:?Haresh Santos, DAT Date: ?07/24/2023 Generated for Kirsten rhodes/[employer]/Janell on:?12/16/2024 12:51 PM EDT
--- OUTSIDE RECORDS SUMMARY | 2024-12-16 12:51 | XMS_ITS | Encounter Summary ---
Author Organization [facility] Address [address] [place] [address] Care Team Providers Care Deliverer Merchandise Name Role Phone Travis Hansen MD Primary Care Provider Sally Kim MD Primary Care Provider Luca Bolanos Primary Care Provider [phone] [facility], [facility] Primary Care Provider Christy weiss Encounter Details Date Type Department Care Team Description 03/17/2021 Pt. Non Urgent Medic al Question Adult Medicine [address] [address] Travis Hansen MD Social History Tobacco Use [...] have Coronavirus / COVID-19? No / Unsure 03/19/2021 8:18 AM EDT documented as of this encounter Miscellaneous Notes * Telephone Encounter - Tabitha Arellano C.M.A - 03/18/2021 7:06 AM EDTFrom: Lucita Iglesia To: Gladys Hansen Sent: 03/17/2021 3:32 PM EDT Subject: X-rays from [facility], I do not see the 2 sets of x-rays I had taken at the [facility] recently. They were taken in the ED, on 2 separate occasions. [facility] am [facility] First set were of my left side where ribs 3 and 4 were injured. One rib was fractured, the oth er cracked. Second set of x rays were of my left wrist which showed a fractured bone in my thumb and another bone cracked. I was splintered for a week, then one week later a permanent cast was put on. Does [facility] send you this kind of info for your records? Lucita documented in this encounter Plan of Treatment Not on file documented as of this encounter Visit Diagnoses Not on filedocumented in this encounter Care Teams Deliverer Merchandise Relationship Specialty Start Date End Date Travis Hansen MD PCP - General Internal Medicine 02/18/21 06/06/21 Sally Stewart MD PCP - General Internal Medicine 06/07/21 01/09/22 Luca Thibodeaux [address] [place] [address] PCP - General Internal Medicine 01/10/22 04/23/23 Wolf Schaffer [address] [place] [address] PCP - General Internal Medicine 04/24/23 documented as of this encounter
--- OUTSIDE RECORDS SUMMARY | 2024-12-16 12:51 | XMS_ITS | Encounter Summary ---
Author Organization [facility] Address [address] [place] [address] Care Team Providers Care Member Certification Manager Name Role Phone Ena Egan MD Primary Care Provider Travis Rg MD Primary Care Provider Unavail Sally Jasmine MD Primary Care Provider Luca Bolanos Primary Care Provider [phone] [facility], Pcp Primary Care Provider Christy weiss Encounter Details Date Type Department Care Team Description 01/08/2014 Release of Information Medical Records [address] [place] [address] Abstract, Provider Social History Tobacco Use Types [...] on filedocumented in this encounter Care Teams Member Certification Manager Relationship Specialty Start Date End Date Ena Egan MD PCP - General Internal Medicine 08/03/11 02/17/21 Travis Hansen MD PCP - General Internal Medicine 02/18/21 06/06/21 Sally Stewart MD PCP - General Internal Medicine 06/07/21 01/09/22 Luca Thibodeaux [address] [place] [address] PCP - General Internal Medicine 01/10/22 04/23/23 [facility], Pcp [address] [place] [address] PCP - General Internal Medicine 04/24/23 documented as of this encounter
--- OUTSIDE RECORDS SUMMARY | 2024-12-16 12:52 | XMS_ITS | Encounter Summary ---
Author Organization [facility] Address [address] [place] [address] Care Team Providers Care Quill Skinner Name Role Phone Luca Thibodeaux Primary Care Provider [phone] [facility], Pcp Primary Care Provider [facility] Encounter Details Date Type Department Care Team Description 10/20/2022 Diet Aide Report Medical Records [address] [place] [address] Brandt Correia MD Social History Tobacco Use [...] on filedocumented in this encounter Care Teams Quill Skinner Relationship Specialty Start Date End Date Luca Thibodeaux [address] [place] [address] PCP - General Internal Medicine 01/10/22 04/23/23 [facility], Pcp [address] [place] [address] PCP - General Internal Medicine 04/24/23 documented as of this encounter
--- OUTSIDE RECORDS SUMMARY | 2024-12-16 12:52 | XMS_ITS | Encounter Summary ---
Author Organization [facility] Address [address] [place] [address] Care Team Providers Care Full Time Paramedic Name Role Phone Ena Egan MD Primary Care Provider Travis Rg MD Primary Care Provider Sally Kim MD Primary Care Provider Luca Bolanos Primary Care Provider [phone] [facility] Primary Care Provider Unavailabl e Reason for Visit * Reason Onset Date Comments Provider Call Back 08/09/2017 Encounter Details Date Type Department Care Team Description 08/09/2017 Telephone Adult [address] [address] Ena Egan MD Provider Call Back Social [...] encounter Miscellaneous Notes * Telephone Encounter - Marian Guerrero R.N. - 08/09/2017 1:36 PM EST I left a message for at [facility] to return my call. [phone] * Telephone Encounter - María Elena DavilaJacinto - 08/09/2017 11:43 AM EST Caller requesting call back from provider: Is the caller the patient? NO If caller is not the patient, what is the callers name? N/A Callers relationship to patient? Dr. Jiang @ [facility] If person calling is not the patient themselves, is there a verbal release in FYI or permanent comments for this person: No Reason for call back: Dr. Jiang would like to speak with a nurse or pcp Caller offered to speak with the nurse for assistance: YES Response: Patient offered to speak with nurse for assistance and patient agreed. Message forwarded to nurse. documented in this encounter Plan of Treatment Not on file documented as of this encounter Visit Diagnoses Not on filedocumented in this encounter Care Teams Full Time Paramedic Relationship Specialty Start Date End Date Ena Egan MD PCP - General Internal Medicine 08/03/11 02/17/21 Travis Hansen MD PCP - General Internal Medicine 02/18/21 06/06/21 Sally Stewart MD PCP - General Internal Medicine 06/07/21 01/09/22 Luca Thibodeaux [address] [place] [address] PCP - General Internal Medicine 01/10/22 04/23/[address] [address] PCP - General Internal Medicine 04/24/23 documented as of this encounter
--- OUTSIDE RECORDS SUMMARY | 2024-12-16 12:52 | XMS_ITS | Encounter Summary ---
Author Organization [facility] Address [address] [place] [address] Care Team Providers Care Pellet Machine Operator Name Role Phone Ena Egan MD Primary Care Provider Travis Rg MD Primary Care Provider Sally Kim MD Primary Care Provider Luca Bolanos Primary Care Provider [phone] [facility], Pcp Primary Care Provider Christy weiss Encounter Details Date Type Department Care Team Description 07/08/2020 Refill Gastroenterology - [address] [place] [address] Ayan Welsh MD Social History [...] on filedocumented in this encounter Care Teams Pellet Machine Operator Relationship Specialty Start Date End Date Ena Egan MD PCP - General Internal Medicine 08/03/11 02/17/21 Travis Hansen MD PCP - General Internal Medicine 02/18/21 06/06/21 Sally Stewart MD PCP - General Internal Medicine 06/07/21 01/09/22 Luca Thibodeaux [address] [place] [id number] PCP - General Internal Medicine 01/10/22 04/23/23 [facility], Pcp [address] [place] [address] PCP - General Internal Medicine 04/24/23 documented as of this encounter
--- OUTSIDE RECORDS SUMMARY | 2024-12-16 12:52 | XMS_ITS | Encounter Summary ---
Author Organization [facility] Address [address] [place] [address] Care Team Providers Care Manufacturing Engineering Professor Name Role Phone Ena Egan MD Primary Care Provider Travis Rg MD Primary Care Provider Unavail Sally Jasmine MD Primary Care Provider Luca Bolanos Primary Care Provider [phone] [facility], Pcp Primary Care Provider Christy weiss Encounter Details Date Type Department Care Team Description 06/27/2018 Release of Information Medical Records [address] [place] [address] Abstract, Provider Social History Tobacco Use Types [...] on filedocumented in this encounter Care Teams Manufacturing Engineering Professor Relationship Specialty Start Date End Date Ena Egan MD PCP - General Internal Medicine 08/03/11 02/17/21 Travis Hansen MD PCP - General Internal Medicine 02/18/21 06/06/21 Sally Stewart MD PCP - General Internal Medicine 06/07/21 01/09/22 Luca Thibodeaux [address] [place] [address] PCP - General Internal Medicine 01/10/22 04/23/23 [facility], Pcp [address] [place] [address] PCP - General Internal Medicine 04/24/23 documented as of this encounter
--- OUTSIDE RECORDS SUMMARY | 2024-12-16 12:52 | XMS_ITS | Encounter Summary ---
Author Organization [facility] Address [address] [place] [address] Care Team Providers Care Director Of Acquisitions Name Role Phone Ena Egan MD Primary Care Provider Travis Rg MD Primary Care Provider Unavail Sally Jasmine MD Primary Care Provider Luca Bolanos Primary Care Provider [phone] [facility] Pcp Primary Care Provider Christy weiss Encounter Details Date Type Department Care Team Description 08/06/2017 Hospital Medical Records [address] [place] [address] Social History Tobacco Use Types Packs/Day Years [...] on filedocumented in this encounter Care Teams Director Of Acquisitions Relationship Specialty Start Date End Date Ena Egan MD PCP - General Internal Medicine 08/03/11 02/17/21 Travis Hansen MD PCP - General Internal Medicine 02/18/21 06/06/21 Sally Stewart MD PCP - General Internal Medicine 06/07/21 01/09/22 Luca Thibodeaux [address] [place] [address] PCP - General Internal Medicine 01/10/22 04/23/23 [facility], Pcp [address] [place] [address] PCP - General Internal Medicine 04/24/23 documented as of this encounter
--- OUTSIDE RECORDS SUMMARY | 2024-12-16 12:52 | XMS_ITS | Encounter Summary ---
Author Organization [facility] Address [address] [place] [address] Care Team Providers Care Bleacher Kraft Pulp Name Role Phone Luca Thibodeaux Primary Care Provider [phone] [facility], Pcp Primary Care Provider Unavailabl e Reason for Visit * Reason Onset Date Comments Appointment Cancelled 02/22/2023 Encounter Details Date Type Department Care Team Description 02/22/2023 Telephone [facility] [address] [facility] [address] [place] [address] Lorena Noble, PA-C [address] [facility] [address] [place] [address] Appointment Cancelled Social History Tobacco Use Types Packs/Day Years [...] suspected to have Coronavirus/COVID-19? No / Unsure 02/01/2023 11:27 AM EDT documented as of this encounter Miscellaneous Notes * Telephone Encounter - Caty Louis - 02/22/2023 4:20 PM EDT Patient is calling office to let Lorena know that she had to CX her appt tomorrow, as she is currently at the [facility] with a Broken Shoulder. She states she also see an ortho there, so she may inquire on getting Cortisone there.Thanks. documented in this encounter Plan of Treatment Not on file documented as of this encounter Visit Diagnoses Not on filedocumented in this encounter Care Teams Bleacher Kraft Pulp Relationship Specialty Start Date End Date Luca Thibodeaux [address] [place] [address] PCP - General Internal Medicine 01/10/22 04/23/23 [facility], [facility] [address] [place] [address] PCP - General Internal Medicine 04/24/23 documented as of this encounter
--- OUTSIDE RECORDS SUMMARY | 2024-12-16 12:52 | XMS_ITS | Encounter Summary ---
Author Organization [facility] Address [address] [place] [address] Care Team Providers Care Ui Application Developer Name Role Phone Ena Egan MD Primary Care Provider Travis Rg MD Primary Care Provider UnavailSally Hutton MD Primary Care Provider Luca Bolanos Primary Care Provider [phone] [facility] Pcp Primary Care Provider Unavailabl e Reason for Visit * Reason Comments E-prescribe Rx Request Encounter Details Date Type Department Care Team Description 10/02/2018 Refill Adult Medicine [address] [address] Susan Hi PA-C [address] [place] [address] E-prescribe Rx Request Social History Tobacco Use [...] / Plan[place] / Product Type: MEDICARE [id number] documented in this encounter Plan of Treatment Not on file documented as of this encounter Visit Diagnoses Not on filedocumented in this encounter Care Teams Ui Application Developer Relationship Specialty Start Date End Date Ena Egan MD PCP - General Internal Medicine 08/03/11 02/17/21 Travis Hansen MD PCP - General Internal Medicine 02/18/21 06/06/21 Sally Stewart MD PCP - General Internal Medicine 06/07/21 01/09/22 Luca Thibodeaux [address] [place] [address] PCP - General Internal Medicine 01/10/22 04/23/23 [facility], [address] [place] [address] PCP - General Internal Medicine 04/24/23 documented as of this encounter
--- OUTSIDE RECORDS SUMMARY | 2024-12-16 12:52 | XMS_ITS | Encounter Summary ---
Author Organization [facility] Address [address] [place] [address] Care Team Providers Care Hydrometeorologist Name Role Phone Ena Egan MD Primary Care Provider Travis Rg MD Primary Care Provider Unavail Sally Jasmine MD Primary Care Provider Luca Bolanos Primary Care Provider [phone] [facility] Pcp Primary Care Provider Christy weiss Encounter Details Date Type Department Care Team Description 01/03/2018 Production Supervisor Trainee Report Medical Records [address] [place] [address] Social History Tobacco Use Types Packs/Day Years [...] on filedocumented in this encounter Care Teams Hydrometeorologist Relationship Specialty Start Date End Date Ena Egan MD PCP - General Internal Medicine 08/03/11 02/17/21 Travis Hansen MD PCP - General Internal Medicine 02/18/21 06/06/21 Sally tSewart MD PCP - General Internal Medicine 06/07/21 01/09/22 Luca Thibodeaux [address] [place] [address] PCP - General Internal Medicine 01/10/22 04/23/23 [facility], Pcp [address] [place] [address] PCP - General Internal Medicine 04/24/23 documented as of this encounter
--- OUTSIDE RECORDS SUMMARY | 2024-12-16 12:52 | XMS_ITS | Encounter Summary ---
Author Organization [facility] Address [address] [place] [address] Care Team Providers Care Artist Manager Name Role Phone Ena Egan MD Primary Care Provider Travis Rg MD Primary Care Provider UnavailSally Hutton MD Primary Care Provider Luca Bolanos Primary Care Provider [phone] [facility] Primary Care Provider Unavailabl e Reason for Visit * Reason Comments E-prescribe Rx Request Encounter Details Date Type Department Care Team Description 07/21/2020 Refill Adult Medicine [address] [address] Ena Egan MD E-prescribe Rx Request Social [...] / Plan[place] / Product Type: MEDICARE [id number] documented in this encounter Plan of Treatment Not on file documented as of this encounter Visit Diagnoses Not on filedocumented in this encounter Care Teams Artist Manager Relationship Specialty Start Date End Date Ena Egan MD PCP - General Internal Medicine 08/03/11 02/17/21 Travis Hansen MD PCP - General Internal Medicine 02/18/21 06/06/21 Sally Stewart MD PCP - General Internal Medicine 06/07/21 01/09/22 Luca Thibodeaux [address] [place], [place] [phone] PCP - General Internal Medicine 01/10/22 04/23/23 [facility], Pcp [address] [place] [address] PCP - General Internal Medicine 04/24/23 documented as of this encounter
--- OUTSIDE RECORDS SUMMARY | 2024-12-16 12:52 | XMS_ITS | Encounter Summary ---
Author Organization [facility] Address [address] [place] [address] Care Team Providers Care Manager Asset Management Name Role Phone Ena Egan MD Primary Care Provider Travis Rg MD Primary Care Provider Unavail Sally Jasmine MD Primary Care Provider Luca Bolanos Primary Care Provider [facility], Pcp Primary Care Provider Christy weiss Encounter Details Date Type Department Care Team Description 08/04/2018 Release of Information Medical Records [address] [place] [address] Abstract, Provider Social History Tobacco Use Types [...] filedocumented in this encounter Care Teams Manager Asset Management Relationship Specialty Start Date End Date Ena Egan MD PCP - General Internal Medicine 08/03/11 02/17/21 Travis Hansen MD PCP - General Internal Medicine 02/18/21 06/06/21 Sally Stewart MD PCP - General Internal Medicine 06/07/21 01/09/22 Luca Thibodeaux [address] [place] [address] PCP - General Internal Medicine 01/10/22 04/23/23 [facility], Pcp [address] [place] [address] PCP - General Internal Medicine 04/24/23 documented as of this encounter
--- OUTSIDE RECORDS SUMMARY | 2024-12-16 12:52 | XMS_ITS | Encounter Summary ---
Author Organization [facility] Address [address] [place] [address] Care Team Providers Care Resident Care Aid Name Role Phone Ena Egan MD Primary Care Provider Travis Rg MD Primary Care Provider Unavail Sally Jasmine MD Primary Care Provider Luca Bolanos Primary Care Provider [phone] [facility], Pcp Primary Care Provider Christy weiss Encounter Details Date Type Department Care Team Description 10/17/2018 Business Doc Medical Records [address] [place] [address] Abstract, Provider Social History Tobacco Use Types [...] on filedocumented in this encounter Care Teams Resident Care Aid Relationship Specialty Start Date End Date Ena Egan MD PCP - General Internal Medicine 08/03/11 02/17/21 Travis Hansen MD PCP - General Internal Medicine 02/18/21 06/06/21 Sally Stewart MD PCP - General Internal Medicine 06/07/21 01/09/22 Luca Thibodeaux [address] [place] [address] PCP - General Internal Medicine 01/10/22 04/23/23 [facility], Pcp [address] [place] [address] PCP - General Internal Medicine 04/24/23 documented as of this encounter
--- OUTSIDE RECORDS SUMMARY | 2024-12-16 12:52 | XMS_ITS ---
Author Organization [facility] Address [address] [place] [address] Care Team Providers Care Digester Name Role Phone Caitlyn Swanson NP Primary Care Provider Unavail able CINTHYA ROJO Unavailable [phone] Emergency, Room Unavailable Unavailable X CT SKAGGS [...] Encounters Encounter Location Date Provider Diagnosis CCOHY [facility] [address] [place] [id number] 09/14/2023 CT SKAGGS Plan Of Treatment No Information Progress Notes * Lucita PAREKHDOB:[birth year] (74 yo F)Acc No.[id number]:09/14/2023 Patient:Lucita EARL Provider:?CT SKAGGS PA-C :1950???Age:72 Y???Sex:Female D ate:09/14/2023 Address:[address] [place], [place] [phone] Pcp:Caitlyn Swanson NP Subjective: * Chief Complaints: * ???1. Left Knee Pain. * Medical History:?Anxiety, At tention problems, Depression, Osteoprosis. * Surgical History:?appendix r emoved , Right TKR-Hiwasse 11/02/2021. * Family History:?Father: diag nosed with [...] Electronic signature of ANGIE SKAGGS PA-C on 12/16/2024 at 12:51 PM EDT Sign off status: Pending * Provider:?CT SKAGGS PA-C Date :?09/14/2023 Generated for Kirsten rhodes/[employer]/Janell on:?12/16/2024 12:51 PM EDT
--- OUTSIDE RECORDS SUMMARY | 2024-12-16 12:52 | XMS_ITS | Encounter Summary ---
Author Organization [facility] Address [address] [place] [address] Care Team Providers Care Buffer Machine Name Role Phone Ena Egan MD Primary Care Provider Travis Rg MD Primary Care Provider Sally Kim MD Primary Care Provider Luca Bolanos Primary Care Provider [phone] [facility], Pcp Primary Care Provider Unavailabl e Reason for Visit * Reason Onset Date Comments Appointment Cancelled 10/31/2011 Encounter Details Date Type Department Care Team Description 10/31/[address] [address] Ena Egan MD Appointment Cancelled Social History Tobacco Use Types [...] Telephone Encounter - Ena Egan MD - 10/31/2011 12:51 PM EST Noted. * Telephone Encounter - Radha Gomes - 10/31/2011 8:44 AM EST Patient called gi this morning and stated she will not be rescheduling her colonoscopy procedure. * Telephone Encounter - Faustina Lima - 10/31/2011 6:52 AM EST Patient called to cancel her appointment with at 9:30am 10/31/11. She said that she has been vomiting all night. Will call Monday10/31/11 to reschedule. documented in this encounter Plan of Treatment Not on file documented as of this encounter Visit Diagnoses Not on filedocumented in this encounter Care Teams Buffer Machine Relationship Specialty Start Date End Date Ena Egan MD PCP - General Internal Medicine 08/03/11 02/17/21 Travis Hansen MD PCP - General Internal Medicine 02/18/21 06/06/21 Sally Stewart MD PCP - General Internal Medicine 06/07/21 01/09/22 Luca Thibodeaux [address] [place] [address] PCP - General Internal Medicine 01/10/22 [facility] [address] [place] [address] PCP - General Internal Medicine 04/24/23 documented as of this encounter
--- OUTSIDE RECORDS SUMMARY | 2024-12-16 12:52 | XMS_ITS | Encounter Summary ---
Author Organization [facility] Address [address] [place] [address] Care Team Providers Care Operations Forester Name Role Phone Ena Egan MD Primary Care Provider Travis Rg MD Primary Care Provider Unavail Sally Jasmine MD Primary Care Provider Luca Bolanos Primary Care Provider [phone] [facility], Pcp Primary Care Provider Christy weiss Encounter Details Date Type Department Care Team Description 10/28/2019 Business Doc Medical Records [address] [place] [address] Abstract, Provider Social History Tobacco Use Types [...] on filedocumented in this encounter Care Teams Operations Forester Relationship Specialty Start Date End Date Ena Egan MD PCP - General Internal Medicine 08/03/11 02/17/21 Travis Hansen MD PCP - General Internal Medicine 02/18/21 06/06/21 Sally Stewart MD PCP - General Internal Medicine 06/07/21 01/09/22 Luca Thibodeaux [address] [place] [address] PCP - General Internal Medicine 01/10/22 04/23/23 [facility], Pcp [address] [place] [address] PCP - General Internal Medicine 04/24/23 documented as of this encounter
--- OUTSIDE RECORDS SUMMARY | 2024-12-16 12:52 | XMS_ITS | Encounter Summary ---
Author Organization [facility] Address [address] [place] [address] Care Team Providers Care Loan Servicing Specialist Name Role Phone Ena Egan MD Primary Care Provider Travis Rg MD Primary Care Provider Unavail Sally Jasmine MD Primary Care Provider Luca Bolanos Primary Care Provider [phone] [facility], Pcp Primary Care Provider Unavailadwn Encounter Details Date Type Department Care Team Description 05/30/2019 Pond Tender Report Medical Records [address] [place] [address] Sam Malik MD Social History Tobacco Use [...] on filedocumented in this encounter Care Teams Loan Servicing Specialist Relationship Specialty Start Date End Date Ena Egan MD PCP - General Internal Medicine 08/03/11 02/17/21 Travis Hansen MD PCP - General Internal Medicine 02/18/21 06/06/21 Sally Stewart MD PCP - General Internal Medicine 06/07/21 01/09/22 Luca Thibodeaux [address] [place] [address] PCP - General Internal Medicine 01/10/22 04/23/23 [facility], Pcp [address] [place] [address] PCP - General Internal Medicine 04/24/23 documented as of this encounter
--- OUTSIDE RECORDS SUMMARY | 2024-12-16 12:52 | XMS_ITS | Encounter Summary ---
Author Organization [facility] Address [address] [place] [address] Care Team Providers Care Cost Reduction Engineer Name Role Phone Ena Egan MD Primary Care Provider Travis Rg MD Primary Care Provider Unavail Sally Jasmine MD Primary Care Provider Luca Bolanos Primary Care Provider [phone] [facility] Pcp Primary Care Provider Christy weiss Encounter Details Date Type Department Care Team Description 08/11/2017 Hospital Medical Records [address] [place] [address] Social History Tobacco Use Types Packs/Day Years [...] on filedocumented in this encounter Care Teams Cost Reduction Engineer Relationship Specialty Start Date End Date Ena Egan MD PCP - General Internal Medicine 08/03/11 02/17/21 Travis Hansen MD PCP - General Internal Medicine 02/18/21 06/06/21 Sally Stewart MD PCP - General Internal Medicine 06/07/21 01/09/22 Luca Thibodeaux [address] [place] [address] PCP - General Internal Medicine 01/10/22 04/23/23 [facility], Pcp [address] [place] [address] PCP - General Internal Medicine 04/24/23 documented as of this encounter
--- OUTSIDE RECORDS SUMMARY | 2024-12-16 12:52 | XMS_ITS | Clinical Summary ---
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 Major depression, recurrent, chronic Overview: [facility] admission 09/2016, 05/2017, [facility] Admission 08/2017 - intentional overdose hx [...] 10/17/2011, 07/15/2003, Additional history exists Covid-19 Vaccine (2022- 4 season) 2024 05/30/2021, 12/10/2020, 11/19/2020 BMI CHECK/ADVISE 09/04/2024 04/22/2024, , 12/04/2023, Additional history exists INFLUENZA (Season Ended) 2025 022, 08/19/2021, 07/06/2021, Additional history exists COLON CANCER SCREENING 09/11/2027 [...] Address Type [place] MCR MCR F 1+/50% [id number] 2015-Pre sent [phone] [address] [place] [address] MEDICARE [id number] [place] [id number] 2015-Pre sent [phone] [address] [place] [address] MEDICARE [id number] [place] [id number] 2015-Pre sent [phone] [address] [place] [address] MEDICARE [id number] [facility] $10 [place] [address] [id number] 2016-Pre sent [facility] [address] [place] [phone] O [id number] [facility] H[facility] F 1+/$15 [id number] 2017-Pre sent [facility] [address] [place], [place] [address] O [id number]-[id number] [facility] SELF FUNDED MEDICARE SUPP $15 [place] [address] [id number] 2018-Pre sent [phone] [facility] [address] [place] [address] MEDICARE SUPPLEMENTAL Care Teams Retail Loan Originator Assistant Relationship Specialty Start Date End Date [facility], Pcp PCP - General Internal Medicine 04/24/23
--- OUTSIDE RECORDS SUMMARY | 2024-12-16 12:52 | XMS_ITS | Encounter Summary ---
Author Organization [facility] Address [address] [place] [address] Care Team Providers Care Nuclear Plant Equipment Operator Name Role Phone Ena Egan MD Primary Care Provider Travis Rg MD Primary Care Provider Unavail Sally Jasmine MD Primary Care Provider Luca Bolanos Primary Care Provider [phone] [facility], Pcp Primary Care Provider Christy weiss Encounter Details Date Type Department Care Team Description 02/07/2020 SCAN Medical Records [address] [place] [address] Abstract, Provider Social History Tobacco Use Types [...] on filedocumented in this encounter Care Teams Nuclear Plant Equipment Operator Relationship Specialty Start Date End Date Ena Egan MD PCP - General Internal Medicine 08/03/11 02/17/21 Travis Hansen MD PCP - General Internal Medicine 02/18/21 06/06/21 Sally Stewart MD PCP - General Internal Medicine 06/07/21 01/09/22 Luca Thibodeaux [address] [place] [address] PCP - General Internal Medicine 01/10/22 04/23/23 [facility], Pcp [address] [place] [address] PCP - General Internal Medicine 04/24/23 documented as of this encounter
--- OUTSIDE RECORDS SUMMARY | 2024-12-16 12:52 | XMS_ITS | Encounter Summary ---
Author Organization [facility] Address [address] [place] [address] Care Team Providers Care Poll Clerk Name Role Phone Luca Thibodeaux Primary Care Provider [phone] [facility], Pcp Primary Care Provider Unavailabl e Reason for Visit * Reason Onset Date Comments Pharmacist Technician Feedback 05/12/2022 Letter Encounter Details Date Type Department Care Team Description 05/12/2022 Pt. Non Urgent Medical Question Adult Medicine [address] [address] Luca Thibodeaux [address] [place] [address] Social History Tobacco Use Types Packs/Day Years [...] Telephone Encounter - Sharee Ji M.A. - 05/13/2022 7:52 AM EDTFrom: Lucita Parekh To: Neelam Thibodeaux Sent: 05/12/2022 5:51 PM EDT Subject: Referral to [facility] Urology Hope you can read this copy of the letter. documented in this encounter Plan of Treatment Not on file documented as of this encounter Visit Diagnoses Not on filedocumented in this encounter Care Teams Poll Clerk Relationship Specialty Start Date End Date Luca Thibodeaux [address] [place] [address] PCP - General Internal Medicine 01/10/22 04/23/23 [facility], [address] [address] PCP - General Internal Medicine 04/24/23 documented as of this encounter
--- OUTSIDE RECORDS SUMMARY | 2024-12-16 12:52 | XMS_ITS ---
Author Organization [facility] Address [address] [place] [phone] Care Team Providers Care Reel Film Inspector Name Role Phone Sky KYLE, Caitlyn Primary Care Provider Unavail able CINTHYA ROJO Unavailable [phone] Emergency, Room Unavailable Unavailable CASPER SANTOS Unavailable [phone] REASON FOR VISIT left shoulder fx Encounters Encounter Location Date Provider Diagnosis CCOHY [facility] [address] [place] [phone] 07/25/2023 CASPER SANTOS Plan Of Treatment No Information Progress Notes * Lucita PAREKHDOB:[birth year] (74 yo F)Acc No.[id number]:07/25/2023 Progress Notes Patient:?Lucita PAREKH Provider:?DAT Chamberlain :1950???Age:72 Y???Sex:Female D ate:07/25/2023 Address:[address] [place], [place] [phone] Pcp:Caitlyn Swanson NP Subjective: * Chief Complaints: * ???1. Left shoulder fx. * Medical History:? Objective: * Vitals:? Assessment: Plan: * Treatment: * * Electronic signature of JOYCE CLARK on 12/16/2024 at 12:52 PM EDT Sign off status: Pending * Provider:?DAT Chamberlain Date: ?07/25/2023 Generated for Kirsten rhodes/[employer]/Janell on:?12/16/2024 12:52 PM EDT
--- OUTSIDE RECORDS SUMMARY | 2024-12-16 12:52 | XMS_ITS | Encounter Summary ---
Author Organization [facility] Address [address] [place] [address] Care Team Providers Care Sap Analyst Name Role Phone Ena Egan MD Primary Care Provider Travis Rg MD Primary Care Provider Unavail Sally Jasmine MD Primary Care Provider Luca Bolanos Primary Care Provider [phone] [facility] Pcp Primary Care Provider [facility] Encounter Details Date Type Department Care Team Description 05/27/2013 Pt. Non Urgent Medic al Question Adult Medicine [address] [address] Ena Egan MD Social History Tobacco Use Types Packs/Day Years Used Date Smoking Tobacco: Former Smokeless Tobacco: Never Comments:quit 1993 Alcohol Use Standard Drinks/Week Comments No 0 (1 standard drink = 0.6 oz pur e alcohol) social Sex Assigned at Date Recorded Not on file Job Start Date Occupation Industry Not on file Not on file Not on file documented as of this encounter Plan of Treatment Not on file documented as of this encounter Visit Diagnoses Not on filedocumented in this encounter Care Teams Sap Analyst Relationship Specialty Start Date End Date Ena Egan MD PCP - General Internal Medicine 08/03/11 02/17/21 Travis Hansen MD PCP - General Internal Medicine 02/18/21 06/06/21 Sally Stewart MD PCP - General Internal Medicine 06/07/21 01/09/22 Luca Thibodeaux [address] [place] [address] PCP - General Internal Medicine 01/10/22 04/23/23 [facility], Pcp [address] [place] [address] PCP - General Internal Medicine 04/24/23 documented as of this encounter
--- OUTSIDE RECORDS SUMMARY | 2024-12-16 12:52 | XMS_ITS | Encounter Summary ---
Author Organization [facility] Address [address] [place] [address] Care Team Providers Care Humane Agent Name Role Phone Luca Thibodeaux Primary Care Provider [phone] [facility], Pcp Primary Care Provider Unavailabl e Reason for Visit * Reason Onset Date Comments bruises 05/10/2022 Encounter Details Date Type Department Care Team Description 05/10/2022 Pt. Non Urgent Medical Question Adult Medicine [address] [address] Luca Thibodeaux [address] [place] [address] Social History Tobacco Use Types Packs/Day Years [...] 7:21 AM EDTFrom: Lucita Parekh To: Neelam Thibodeaux Sent: 05/10/2022 5:34 PM EDT Subject: Large [...] on filedocumented in this encounter Care Teams Humane Agent Relationship Specialty Start Date End Date Luca Thibodeaux [address] [place] [address] PCP - General Internal Medicine 01/10/22 04/23/23 [facility], [facility] [place] [address] PCP - General Internal Medicine 04/24/23 documented as of this encounter
--- OUTSIDE RECORDS SUMMARY | 2024-12-16 12:52 | XMS_ITS | Encounter Summary ---
Author Organization [facility] Address [address] [place] [address] Care Team Providers Care Procedure Tech Name Role Phone Luca Thibodeaux Primary Care Provider [phone] [facility], Pcp Primary Care Provider Unavailabl e Reason for Visit * Reason Onset Date Comments Form 11/08/2022 Encounter Details Date Type Department Care Team Description 11/08/2022 Pt. Non Urgent Medical Question Adult Medicine [address] [address] Luca Thibodeaux [address] [place] [address] Social History Tobacco Use Types Packs/Day Years [...] to get into my new apartment at [facility] as soon as possible. They have stopped [...] on filedocumented in this encounter Care Teams Procedure Tech Relationship Specialty Start Date End Date Luca Thibodeaux [address] [place] [id number] PCP - General Internal Medicine 01/10/22 04/23/23 [facility], Pcp [address] [place] [address] PCP - General Internal Medicine 04/24/23 documented as of this encounter
--- OUTSIDE RECORDS SUMMARY | 2024-12-16 12:52 | XMS_ITS | Encounter Summary ---
Author Organization [facility] Address [address] [place] [address] Care Team Providers Care Supervisor Throwing Department Name Role Phone Travis Hansen MD Primary Care Provider Sally Kim MD Primary Care Provider Luca Bolanos Primary Care Provider [phone] [facility], Pcp [facility] Encounter Details Date Type Department Care Team Description 05/17/2021 Pt. Non Urgent Medical Question Adult Medicine [address] [address] Susan Hi PA-C [address] [place] [address] Social History Tobacco Use Types Packs/Day Years [...] filedocumented in this encounter Care Teams Supervisor Throwing Department Relationship Specialty Start Date End Date Travis Hansen MD PCP - General Internal Medicine 02/18/21 06/06/21 Sally Stewart MD PCP - General Internal Medicine 06/07/21 01/09/22 Luca Thibodeaux [address] [place] [address] PCP - General Internal Medicine 01/10/22 04/23/23 [facility], Pcp [address] [place] [address] PCP - General Internal Medicine 04/24/23 documented as of this encounter
--- OUTSIDE RECORDS SUMMARY | 2024-12-16 12:52 | XMS_ITS | Encounter Summary ---
Author Organization [facility] Address [address] [place] [address] Care Team Providers Care Makeup Sales Advisor Name Role Phone Ena Egan MD Primary Care Provider Travis Rg MD Primary Care Provider Sally Kim MD Primary Care Provider Luca Bolanos Primary Care Provider [phone] [facility], [facility] Primary Care Provider Unavailabl e Reason for Visit * Reason Onset Date Comments Provider Call Back 04/14/2020 Encounter Details Date Type Department Care Team Description 04/14/2020 Telephone Adult [address] [address] Ena Egan MD Provider Call Back Social [...] on filedocumented in this encounter Care Teams Makeup Sales Advisor Relationship Specialty Start Date End Date Ena Egan MD PCP - General Internal Medicine 08/03/11 02/17/21 Travis Hansen MD PCP - General Internal Medicine 02/18/21 06/06/21 Sally Stewart MD PCP - General Internal Medicine 06/07/21 01/09/22 Luca Thibodeaux [address] [place] [address] PCP - General Internal Medicine 01/10/22 04/23/23 [facility], [facility] [place] [address] PCP - General Internal Medicine 04/24/23 documented as of this encounter
--- OUTSIDE RECORDS SUMMARY | 2024-12-16 12:52 | XMS_ITS | Encounter Summary ---
Author Organization [facility] Address [address] [place] [address] Care Team Providers Care House Officer Name Role Phone Ena Egan MD Primary Care Provider Travis Rg MD Primary Care Provider Unavail Sally Jasmine MD Primary Care Provider Luca Bolanos Primary Care Provider [phone] [facility] Pcp Primary Care Provider Unavaildawn Encounter Details Date Type Department Care Team Description 06/03/2019 Intermediate School Teacher Report Medical Records [address] [place] [address] Brandt Correia MD Social History Tobacco Use [...] filedocumented in this encounter Care Teams House Officer Relationship Specialty Start Date End Date Ena Egan MD PCP - General Internal Medicine 08/03/11 02/17/21 Travis Hansen MD PCP - General Internal Medicine 02/18/21 06/06/21 Sally Stewart MD PCP - General Internal Medicine 06/07/21 01/09/22 Luca Thibodeaux [address] [place] [address] PCP - General Internal Medicine 01/10/22 04/23/23 [facility], Pcp [address] [place] [address] PCP - General Internal Medicine 04/24/23 documented as of this encounter
--- OUTSIDE RECORDS SUMMARY | 2024-12-16 12:52 | XMS_ITS | Encounter Summary ---
Author Organization [facility] Address [address] [place] [address] Care Team Providers Care Heavy Equipment Field Mechanic Name Role Phone Ena Egan MD Primary Care Provider Travis Rg MD Primary Care Provider Unavail Sally Jasmine MD Primary Care Provider Luca Bolanos Primary Care Provider [facility] Pcp Primary Care Provider Unavaildawn Encounter Details Date Type Department Care Team Description 01/22/2020 [facility] Medical Records [address] [place] [address] Chantal Garay MD Social History Tobacco Use Types Packs/Day [...] on filedocumented in this encounter Care Teams Heavy Equipment Field Mechanic Relationship Specialty Start Date End Date Ena Egan MD PCP - General Internal Medicine 08/03/11 02/17/21 Travis Hansen MD PCP - General Internal Medicine 02/18/21 06/06/21 Sally Stewart MD PCP - General Internal Medicine 06/07/21 01/09/22 Luca Thibodeaux [address] [place] [address] PCP - General Internal Medicine 01/10/22 04/23/23 [facility], Pcp [address] [place] [address] PCP - General Internal Medicine 04/24/23 documented as of this encounter
--- OUTSIDE RECORDS SUMMARY | 2024-12-16 12:52 | XMS_ITS | Encounter Summary ---
Author Organization [facility] Address [address] [place] [address] Care Team Providers Care Glazier Apprentice Name Role Phone Luca Thibodeaux Primary Care Provider [phone] [facility], Pcp Primary Care Provider [facility] Encounter Details Date Type Department Care Team Description 10/31/2022 Photocomposition Keyboard Operator Report Medical Records [address] [place] [address] Rabia Roman [address] [facility] [address] [place] [address] Social History Tobacco Use Types Packs/Day Years [...] on filedocumented in this encounter Care Teams Glazier Apprentice Relationship Specialty Start Date End Date Luca Thibodeaux [address] [place] [address] PCP - General Internal Medicine 01/10/22 04/23/23 [facility], Pcp [address] [place] [address] PCP - General Internal Medicine 04/24/23 documented as of this encounter
--- OUTSIDE RECORDS SUMMARY | 2024-12-16 12:52 | XMS_ITS | Encounter Summary ---
Author Organization [facility] Address [address] [place] [address] Care Team Providers Care Physicians And Surgeons Name Role Phone Ena Egan MD Primary Care Provider Travis Rg MD Primary Care Provider Unavail Sally Jasmine MD Primary Care Provider Luca Bolanos Primary Care Provider [phone] [facility], Pcp Primary Care Provider Christy weiss Encounter Details Date Type Department Care Team Description 07/20/2018 Business Doc Medical Records [address] [place] [address] Abstract, Provider Social History Tobacco Use Types [...] on filedocumented in this encounter Care Teams Physicians And Surgeons Relationship Specialty Start Date End Date Ena Egan MD PCP - General Internal Medicine 08/03/11 02/17/21 Travis Hansen MD PCP - General Internal Medicine 02/18/21 06/06/21 Sally Stewart MD PCP - General Internal Medicine 06/07/21 01/09/22 Luca Thibodeaux [address] [place] [address] PCP - General Internal Medicine 01/10/22 04/23/23 [facility], Pcp [address] [place] [address] PCP - General Internal Medicine 04/24/23 documented as of this encounter
--- OUTSIDE RECORDS SUMMARY | 2024-12-16 12:52 | XMS_ITS | Encounter Summary ---
Author Organization [facility] Address [address] [place] [address] Care Team Providers Care Inspector Motor Vehicles Name Role Phone Ena Egan MD Primary Care Provider Travis Rg MD Primary Care Provider UnavailSally Hutton MD Primary Care Provider Luca Bolanos Primary Care Provider [phone] [facility] Primary Care Provider Unavailabl e Reason for Visit * Reason Comments E-prescribe Rx Request Encounter Details Date Type Department Care Team Description 12/21/2020 Refill Adult Medicine [address] [address] Ena Egan MD E-prescribe Rx Request Social [...] / Plan[place] / Product Type: MEDICARE [id number] documented in this encounter Plan of Treatment Not on file documented as of this encounter Visit Diagnoses Not on filedocumented in this encounter Care Teams Inspector Motor Vehicles Relationship Specialty Start Date End Date Ena Egan MD PCP - General Internal Medicine 08/03/11 02/17/21 Travis Hansen MD PCP - General Internal Medicine 02/18/21 06/06/21 Sally Stewart MD PCP - General Internal Medicine 06/07/21 01/09/22 Luca Thibodeaux [address] [place] [address] PCP - General Internal Medicine 01/10/22 04/23/23 [facility], Pcp [address] [place] [address] PCP - General Internal Medicine 04/24/23 documented as of this encounter
--- OUTSIDE RECORDS SUMMARY | 2024-12-16 12:52 | XMS_ITS | Encounter Summary ---
Author Organization [facility] Address [address] [place] [address] Care Team Providers Care Loft Worker Name Role Phone Ena Egan MD Primary Care Provider Travis Rg MD Primary Care Provider Sally Kim MD Primary Care Provider Luca Bolanos Primary Care Provider [phone] [facility], Pcp Primary Care Provider Unavailabl e Reason for Visit * Reason Onset Date Comments hospital follow up 08/14/2017 Encounter Details Date Type Department Care Team Description 08/14/2017 Telephone Adult [address] [address] Ena Egan MD hospital follow up Social [...] appointment needed Hospital patient was treated at: [facility] Was this only an ER visit [...] on filedocumented in this encounter Care Teams Loft Worker Relationship Specialty Start Date End Date Ena Egan MD PCP - General Internal Medicine 08/03/11 02/17/21 Travis Hansen MD PCP - General Internal Medicine 02/18/21 06/06/21 Sally Stewart MD PCP - General Internal Medicine 06/07/21 01/09/22 Luca Thibodeaux [address] [place] [address] PCP - General Internal Medicine 01/10/22 04/23/23 Wolf Schaffer [address] [place] [address] PCP - General Internal Medicine 04/24/23 documented as of this encounter
--- OUTSIDE RECORDS SUMMARY | 2024-12-16 12:52 | XMS_ITS | Encounter Summary ---
Author Organization [facility] Address [address] [place] [address] Care Team Providers Care Cosmetic Sales Name Role Phone Ena Egan MD Primary Care Provider Travis Rg MD Primary Care Provider Unavail Sally Jasmine MD Primary Care Provider Luca Bolanos Primary Care Provider [phone] [facility], Pcp Primary Care Provider Christy weiss Encounter Details Date Type Department Care Team Description 08/25/2017 Release of Information Medical Records [address] [place] [id number] Abstract, Provider Social History Tobacco Use Types [...] on filedocumented in this encounter Care Teams Cosmetic Sales Relationship Specialty Start Date End Date Ena Egan MD PCP - General Internal Medicine 08/03/11 02/17/21 Travis Hansen MD PCP - General Internal Medicine 02/18/21 06/06/21 Sally Stewart MD PCP - General Internal Medicine 06/07/21 01/09/22 Luca Thibodeaux [address] [place] [address] PCP - General Internal Medicine 01/10/22 04/23/23 [facility], Pcp [address] [place] [address] PCP - General Internal Medicine 04/24/23 documented as of this encounter
--- OUTSIDE RECORDS SUMMARY | 2024-12-16 12:52 | XMS_ITS | Encounter Summary ---
Author Organization [facility] Address [address] [place] [address] Care Team Providers Care Weeder Thinner Name Role Phone [facility], Pcp Primary Care Provider Unavailabl e Encounter Details Date Type Department Care Team Description 10/30/2023 Psychotherapist Counselor Report Medical Records [address] [place] [address] Ja Montesinos Social History Tobacco Use Types [...] on filedocumented in this encounter Care Teams Weeder Thinner Relationship Specialty Start Date End Date [facility], Pcp PCP - General Internal Medicine 04/24/23 documented as of this encounter
--- OUTSIDE RECORDS SUMMARY | 2024-12-16 12:52 | XMS_ITS | Clinical Summary ---
Author Organization [facility] Address [address] [place] [address] Care Team Providers Care Vacation Planner Name Role Phone Caitlyn Swanson MIKEY Primary [...] mouth daily. 90 Tablet 3 4 Active melatonin 3 mg tabletIndications: Adjustment [...] 24 hr capsuleIndications :Major depression, recurrent, chronic ([facility]-HCC V24) Take 1 Capsule by mouth once daily with breakfast 90 Capsule 1 5 Active prazosin (MINIPRESS) 5 mg capsuleIndications :Major depression, recurrent, chronic (PACE-HCC V24) Take 1 Capsule by mouth nightly at [...] mg 24 hr tabletIndications: Chronic atrial fibrillation ([facility]) Take 1 Tablet by mouth nightly at bedtime 90 Tablet 4 5 Active apixaban (ELIQUIS) 5 mg tabIndications:Chr onic atrial fibrillation ([facility]) Take 1 Tablet by mouth 2 (two) times a day 180 Tablet 4 5 Active busPIRone (BUSPAR) 7.5 mg tabletIndications: Situational anxiety Take 1 Tablet by mouth 3 (three) times daily 90 Tablet 1 5 Active dextroamphetamine- amphetamine (ADDERALL XR) 10 mg 24 hr capsuleIndications :Attention deficit hyperactivity disorder (ADHD), predominantly inattentive type TAKE 1 CAPSULE BY MOUTH ONCE A DAY IN THE MORNING 90 Capsule 5 Active clonazePAM (KLONOPIN) 1 mg tabletIndications: Major depression, recurrent, chronic ([facility]) Take 1 Tablet by mouth nightly at bedtime for 28 days 28 Tablet 5 Active Active Problems Problem Noted Date [...] back to higher dose Chronic atrial fibrillation ([facility]) 08/22/2022 Fractures 02/09/2022 Overview (07/01/2022): Per ot: [...] Date Resolved Date Major depression, recurrent, chronic (PACE-HCC V24) 12/23/2013 06/08/2023 Overview (07/01/2022): [place] admission 09/2016, 05/2017, [facility] Admission 08/2017 - intentional overdose hx x2 , ECT therapy 05/2017, outside psychiatric care Dr Barry Encounters Date Type Department Care Team Description 09/24/2024 8:20 AM EST Office Visit [facility] [address] [place] [id number] Lani Sanz PA-C Black stool (Primary Dx); Viral gastroenteritis 09/19/2024 2:40 PM EST Office Visit [facility] [address] [place] [address] Caitlyn Swanson CFNP Chronic atrial fibrillation (HCC-CMS) [...] 08/22/2024 , 06/11/2024, 05/09/2024, Additional history exists [id number] ( season) 2024 06/11/2024, 06/20/2023, 05/30/2021, Additional history exists Tobacco Screening 06/11/2025 06/11/2024 Lipid Screening 09/19/2025 09/19/2024, 09/15/2022 Hypertension Screening (#1) 09/24/2025 Breast Cancer Screening (Mammogram) 08/08/2026 08/08/2024 Imm-DTaP/Tdap/Td (5 - Td or Tdap) 04/21/2032 04/21/2022, 08/16/2017, 02/25/2003, Additional history exists Imm-Pneumococcal 65+ Completed 02/10/2018, 08/16/20 17 Imm-Zoster, Recombinant Completed 05/03/2022, 11/06 /2021 Hepatitis C Screening Completed 06/08/2023 Imm-Influenza Completed 06/11/2024, 06/04, 08/22/2022, Additional history [...] AM EDT) 11/11/2024 3:00 AM EDT Caitlyn JENSEN SCAN OTHER ORDERS Final Resu lt * MEDICATIONS SCANNED DOCUMENT (10/16/2024 3:00 AM EST) 10/16/2024 3:00 AM EST [facility] SCAN MEDS OTHER ORDER S Final Result * (ABNORMAL) BLOOD COUNT COMPLETE AUTOMATED (09/24/2024 9:44 AM EST) WHITE BLOOD CELL COUNT 8.9 3.8 - 10.8 Thousand/ uL 09/24/2024 8:21 PM EST [facility] RED BLOOD CELL COUNT 4.91 3.80 - 5.10 Million/u L 09/24/2024 8:21 PM EST [facility] HEMOGLOBIN 15.3 11.7 - 15.5 g/dL 09/24/2024 8:21 PM EST [facility] HEMATOCRIT 46.6(H) 35.0 - 45.0 % 09/24/2024 8:21 PM EST [facility] MCV 94.9 80.0 - 100.0 fL 09/24/2024 8:[address] MCH 31.2 27.0 - 33.0 pg 09/24/2024 8:[address] [facility] MCHC 32.8 32.0 - 36.0 g/dL 09/24/2024 8:[address] [facility] RDW 11.8 11.0 - 15.0 % 09/24/2024 8:[address] [facility] PLATELET COUNT 290 140 - 400 Thousand/ uL 09/24/2024 8:[address] [facility] MPV 9.8 7.5 - 12.5 fL 09/24/2024 8:[address] [facility] Blood Blood / Unknown 09/24/2024 9 :44 AM EST 09/24/2024 4:58 PM EST [facility]arr[facility] [employer] - 09/24/2024 8:30 PM EST FASTING:YES For adults, a slight decrease in the calculated MCHC value (in the range of 30 to 32 g/dL) is most likely not clinically significant; however, it should be interpreted with caution in correlation with other red cell parameters and the patient's clinical condition. Lani Sanz PA-C LAB - BLOOD DRAW Final Resul t [facility] [address] [address], [place] [facility] [address] [place] [address] * (ABNORMAL) COMPREHENSIVE METABOLIC PANEL (09/24/2024 9:44 AM EST) Only the most recent of2 resultswithin the time period is included. GLUCOSE 105(H) 65 - 99 mg/dL 09/24/2024 6:[address] [facility] UREA NITROGEN (BUN) 15 7 - 25 mg/dL 09/24/2024 6:49 PM EST [facility] CREATININE (blood) 0.77 0.60 - 1.00 mg/dL 09/24/2024 6:[address] [facility] EGFR 81 > OR = 60 mL/min/1. 73m2 09/24/2024 6:49 PM EST [facility] BUN/CREATININE RATIO SEE NOTE: (calc) 09/24/2024 6:[address] [facility] SODIUM 136 135 - 146 mmol/L 09/24/2024 6:49 PM EST [facility] POTASSIUM 4.3 3.5 - 5.3 mmol/L 09/24/2024 6:49 PM EST [facility] CHLORIDE 101 98 - 110 mmol/L 09/24/2024 6:49 PM EST [facility] CARBON DIOXIDE 28 20 - 32 mmol/L 09/24/2024 6:[address] [facility] CALCIUM 10.1 8.6 - 10.4 mg/dL 09/24/2024 6:[address] [facility] PROTEIN, TOTAL 6.7 6.1 - 8.1 g/dL 09/24/2024 6:[address] [facility] ALBUMIN 4.3 3.6 - 5.1 g/dL 09/24/2024 6:49 PM EST [facility] GLOBULIN 2.4 1.9 - 3.7 g/dL (calc) 09/24/2024 6:49 PM EST [facility] ALBUMIN/GLOBULI N RATIO 1.8 1.0 - 2.5 (calc) 09/24/2024 6:[address] [facility] BILIRUBIN, TOTAL 0.4 0.2 - 1.2 mg/dL 09/24/2024 6:[address] [facility] ALKALINE PHOSPHATASE 82 37 - 153 U/L 09/24/2024 6:49 PM EST [facility] [employer] AST 15 10 - 35 U/L 09/24/2024 6:49 PM EST [facility] ALT 12 6 - 29 U/L 09/24/2024 6:49 PM EST [facility] Blood Blood / Unknown 09/24/2024 9 :44 AM EST 09/24/2024 4:49 PM EST Narr[employer] - 09/24/2024 6:59 PM EST FASTING:YES . ? Fasting reference interval . For someone without known diabetes, a glucose value between 100 and 125 mg/dL is consistent with prediabetes and should be confirmed with a follow-up test. . ?? Not Reported: BUN and Creatinine are within ?? reference range. . us Lani Sanz PA-C LAB - BLOOD DRAW Final Resul t [place] [facility] [address] [address], [place] [address] [address] * (ABNORMAL) HEMOCUE HEMOGLOBIN (POCT) (09/24/2024 9:14 AM EST) HEMOGLOBIN 15.3(A) 12 - 15 g/dL [facility] Blood Blood / Unknown 09/24/2024 9 :14 AM EST us Lani Sanz PA-C LAB - BLOOD DRAW Final Resul t [facility] [address] [place] [address], * VITAMIN B12 & FOLATE (09/19/2024 2:00 PM EST) VITAMIN B12 622 200 - 1,100 pg/mL 09/20/2024 3:31 AM EST [place] [facility] FOLATE, SERUM 8.1 ng/mL 09/20/2024 3:31 AM EST [facility] Blood Blood / Unknown 09/19/2024 2 :00 PM EST 09/20/2024 2:42 AM EST Narr[facility] [employer] - 09/20/2024 3:37 AM EST FASTING:YES ? Reference Range ? Low: ? <3.4 ? Borderline: ?3.4-5.4 ? Normal: ?>5.4 . Caitlyn Swanson [facility] LAB - BLOOD DRAW Final Resul t [facility] [address] [address], [facility] [address] [place] [phone] * (ABNORMAL) BLOOD COUNT COMPLETE AUTO&AUTO DIFRNTL WBC (09/19/2024 2:00 PM EST) WHITE BLOOD CELL COUNT 11.6(H) 3.8 - 10.8 Thousand/ uL 09/20/2024 2:24 AM EST [facility] RED BLOOD CELL COUNT 4.66 3.80 - 5.10 Million/u L 09/20/2024 2:24 AM EST [facility] HEMOGLOBIN 14.5 11.7 - 15.5 g/dL 09/20/2024 2:24 AM EST [facility] HEMATOCRIT 44.8 35.0 - 45.0 % 09/20/2024 2:24 AM EST [facility] MCV 96.1 80.0 - 100.0 fL 09/20/2024 2:24 AM EST [facility] MCH 31.1 27.0 - 33.0 pg 09/20/2024 2:24 AM EST [facility] [employer] [facility] MCHC 32.4 32.0 - 36.0 g/dL 09/20/2024 2:24 AM EST [facility] [employer] [facility] RDW 11.8 11.0 - 15.0 % 09/20/2024 2:24 AM EST [facility] [employer] [facility] PLATELET COUNT 349 140 - 400 Thousand/ uL 09/20/2024 2:24 AM EST [place] [facility] MPV 9.7 7.5 - 12.5 fL 09/20/2024 2:24 AM EST [facility] ABSOLUTE NEUTROPHILS 6,392 1,500 - 7,800 cells/uL 09/20/2024 2:24 AM EST [place] [facility] ABSOLUTE LYMPHOCYTES 4,141(H) 850 - 3,900 cells/uL 09/20/2024 2:24 AM EST [place] [facility] ABSOLUTE MONOCYTES 940 200 - 950 cells/uL 09/20/2024 2:24 AM EST [place] [facility] ABSOLUTE EOSINOPHILS 81 15 - 500 cells/uL 09/20/2024 2:24 AM EST [place] [facility] ABSOLUTE BASOPHILS 46 0 - 200 cells/uL 09/20/2024 2:24 AM EST [facility] [employer] [facility] NEUTROPHILS PCT 55.1 % 2:24 AM EST [facility] [employer] [facility] LYMPHOCYTES 35.7 % 09/20/2024 2:24 AM EST [place] [facility] MONOCYTES 8.1 % 09/20/2024 2:24 AM EST [place] [facility] EOSINOPHILS 0.7 % 09/20/2024 2:24 AM EST [place] [facility] BASOPHILS 0.4 % 09/20/2024 2:24 AM EST [place] [facility] Blood Blood / Unknown 09/19/2024 2 :00 PM EST 09/20/2024 1:44 AM EST Narrative [place] [facility] - 09/20/2024 2:31 AM EST FASTING:YES For adults, a slight decrease in the calculated MCHC value (in the range of 30 to 32 g/dL) is most likely not clinically significant; however, it should be interpreted with caution in correlation with other red cell parameters and the patient's clinical condition. Caitlyn JENSEN LAB - BLOOD DRAW Final Resul t Performing Organization Address [facility] Co de Phone Number [place] [address] [address], [place] [address] [address] * LIPID PANEL (09/19/2024 2:00 PM EST) CHOLESTEROL, TOTAL 161 <200 mg/dL 09/20/2024 4:[address] HDL CHOLESTEROL 62 > OR = 50 mg/dL 09/20/2024 4:30 AM EST [facility] TRIGLYCERIDES 70 <150 mg/dL 09/20/2024 4:30 AM EST [place] [facility] LDL-CHOLESTEROL 84 mg/dL (calc) 09/20/2024 4:30 AM EST [facility] CHOL/HDLC RATIO 2.6 <5.0 (calc) 09/20/2024 4:[address] [facility] NON-HDL CHOLESTEROL 99 <130 mg/dL (calc) 09/20/2024 4:30 AM EST [facility] Blood Blood / Unknown 09/19/2024 2 :00 PM EST 09/20/2024 2:42 AM EST [facility] - 09/20/2024 4:33 AM EST FASTING:YES [...] LDL-C. Ata GATES et al. ELEUTERIO. 2013;310(19): 4792-4658 (http://education.Meme.com/faq/KIL820) For patients with diabetes plus 1 major ASCVD risk factor, treating to a non-HDL-C goal of <100 mg/dL (LDL-C of <70 mg/dL) is considered a therapeutic option. us Caitlyn JENSEN LAB - BLOOD DRAW Final Resul t Performing Organization Address City/[facility]/ZIP Co de Phone Number [employer] [address] [address], [place] [address] [address] * ACUTE HEPATITIS PANEL W/RFLX (06/08/2023 1:29 PM EDT) HEPATITIS A IGM ANTIBODY NON-REACT JCARLOS NON-REACT JCARLOS 06/09/2023 3:07 AM EDT [place] [facility] HEPATITIS B SURFACE ANTIGEN NON-REACT JCARLOS NON-REACT JCARLOS 06/09/2023 3:07 AM EDT [place] [facility] HEPATITIS B CORE IGM ANTIBODY NON-REACT JCARLOS NON-REACT JCARLOS 06/09/2023 3:07 AM EDT [place] [facility] HEPATITIS C ANTIBODY NON-REACT JCARLOS NON-REACT JCARLOS 06/09/2023 3:07 AM EDT [place] [facility] Blood Blood / Unknown 06/08/2023 1 :29 PM EDT 06/09/2023 1:31 AM EDT [facility]arrative [facility] - 06/09/2023 4:41 AM EDT FASTING:UNKNOWN . HCV antibody was non-reactive. There is no laboratory evidence of HCV infection. . In most cases, no further action is required. However, if recent HCV exposure is suspected, a test for HCV RNA (test code 22306) is suggested. . For additional information please refer to http://Kuotus.Usarium/faq/ZZD85b8 (This link is being provided for informational/ educational purposes only.) . . For additional information, please refer to http://education.[employer].Agendia/faq/WIF442 (This link is being provided for informational/ educational purposes only.) . 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
--- OUTSIDE RECORDS SUMMARY | 2024-12-16 12:52 | XMS_ITS | Encounter Summary ---
Author Organization [facility] Address [address] [place] [address] Care Team Providers Care Ductfixing Plumber Name Role Phone Ena Egan MD Primary Care Provider Travis Rg MD Primary Care Provider Sally Kim MD Primary Care Provider Luca Bolanos Primary Care Provider [phone] [facility], Pcp Primary Care Provider Unavailabl e Reason for Visit * Reason Onset Date Comments Faxed Order 11/04/2020 Encounter Details Date Type Department Care Team Description 11/04/2020 Telephone Adult [address] [address] Ena Egan MD Faxed Order Social History [...] have Coronavirus / COVID-19? No / Unsure 10/15/2020 8:49 AM EST documented as of this encounter Miscellaneous Notes * Telephone Encounter - Neeru Vora - 11/04/2020 9:14 AM EST PT Plan of care to be signed and faxed back documented in this encounter Plan of Treatment Not on file documented as of this encounter Visit Diagnoses Not on filedocumented in this encounter Care Teams Ductfixing Plumber Relationship Specialty Start Date End Date Ena Egan MD PCP - General Internal Medicine 08/03/11 02/17/21 Travis Hansen MD PCP - General Internal Medicine 02/18/21 06/06/21 Sally Stewart MD PCP - General Internal Medicine 06/07/21 01/09/22 Luca Thibodeaux [address] [place] [address] PCP - General Internal Medicine 01/10/22 04/23/23 [facility], [facility] [place] [address] PCP - General Internal Medicine 04/24/23 documented as of this encounter
--- OUTSIDE RECORDS SUMMARY | 2024-12-16 12:53 | XMS_ITS | Encounter Summary ---
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[employer] Report Medical Records [address] [place] [id number] Abstract, Provider Social History Tobacco Use Types [...] on filedocumented in this encounter Care Teams Aurist Relationship Specialty Start Date End Date Ena Egan MD PCP - General Internal Medicine 08/03/11 02/17/21 Travis Hansen MD PCP - General Internal Medicine 02/18/21 06/06/21 Sally Stewart MD PCP - General Internal Medicine 06/07/21 01/09/22 Luca Thibodeaux [address] [place] [address] PCP - General Internal Medicine 01/10/22 04/23/23 [facility], Pcp [address] [place] [address] PCP - General Internal Medicine 04/24/23 documented as of this encounter
--- OUTSIDE RECORDS SUMMARY | 2024-12-16 12:53 | XMS_ITS | Encounter Summary ---
Author Organization [facility] Address [address] [place] [address] Care Team Providers Care Soa Integration Developer Name Role Phone Ena Egan MD Primary Care Provider Travis Rg MD Primary Care Provider Sally Kim MD Primary Care Provider Luca Bolanos Primary Care Provider [phone] [facility] Primary Care Provider Unavailabl e Reason for Visit * Reason Onset Date Comments refill request 06/02/2017 Encounter Details Date Type Department Care Team Description 06/02/2017 Refill Adult Medicine [address] [address] Ena Egan MD refill request Social History [...] / Plan: [place] / Product Type: MEDICARE [id number] documented in this encounter Plan of Treatment Not on file documented as of this encounter Visit Diagnoses Not on filedocumented in this encounter Care Teams Soa Integration Developer Relationship Specialty Start Date End Date Ena Egan MD PCP - General Internal Medicine 08/03/11 02/17/21 Travis Hansen MD PCP - General Internal Medicine 02/18/21 06/06/21 Sally Stewart MD PCP - General Internal Medicine 06/07/21 01/09/22 Luca Thibodeaux [address] [place] [address] PCP - General Internal Medicine 01/10/22 04/23/[address] [address] PCP - General Internal Medicine 04/24/23 documented as of this encounter
--- OUTSIDE RECORDS SUMMARY | 2024-12-16 12:53 | XMS_ITS | Encounter Summary ---
Author Organization [facility] Address [address] [place] [address] Care Team Providers Care Water Resource Manager Name Role Phone Sally Stewart MD Primary Care Provider Luca Bolanos Primary Care Provider [phone] [facility], Pcp Primary Care Provider [facility] Encounter Details Date Type Department Care Team Description 07/19/2021 Orders Only Radiology - [place] [address] [place] [address] [phone] Susan Hi PA-C [address] [place], [place] [phone] Screening for diabetes mellitus (Primary Dx) Social [...] EST [facility] Comment: If patient is -Ugandan, multiply result by 1.21 Chronic Kidney Disease: [...] mellitus documented in this encounter Care Teams Water Resource Manager Relationship Specialty Start Date End Date Sally Stewart MD PCP - General Internal Medicine 06/07/21 01/09/22 Luca Thibodeaux [address] [place] [address] PCP - General Internal Medicine 01/10/22 04/23/23 Sarbjit, Wolf [address] [place] [address] PCP - General Internal Medicine 04/24/23 documented as of this encounter
--- OUTSIDE RECORDS SUMMARY | 2024-12-16 12:53 | XMS_ITS | Encounter Summary ---
Author Organization [facility] Address [address] [place] [address] Care Team Providers Care Security Compliance Specialist Name Role Phone Sally Stewart MD Primary Care Provider Luca Bolanos Primary Care Provider [phone] [facility] Primary Care Provider [facility] Reason for Visit * Reason Onset Date Comments hospital follow up 11/19/2021 Encounter Details Date Type Department Care Team Description 11/19/2021 Pt. Non Urgent Medic al Question Adult Medicine [address] [address] Sally Stewart MD Social History Tobacco Use Types Packs/Day [...] Telephone Encounter - Sharee Ji M.A. - 11/19/2021 10:23 AM EDTFrom: Lucita Parekh To: Edi Stewart Sent: 11/19/2021 10:16 AM EDT Subject: Follow up knee replacement Dr. Stewart, Dr. Trent Christianson MD, my doctor at [facility] has asked that I be scheduled to see you within 7 days to follow-up on my November 02 knee replacement surgery. My discharge date is Monday. Sincerely, Lucita documented in this encounter Plan of Treatment Not on file documented as of this encounter Visit Diagnoses Not on filedocumented in this encounter Care Teams Security Compliance Specialist Relationship Specialty Start Date End Date Sally Stewart MD PCP - General Internal Medicine 06/07/21 01/09/22 Luca Thibodeaux [address] [place] [address] PCP - General Internal Medicine 01/10/22 04/23/23 [facility], [address] [address] PCP - General Internal Medicine 04/24/23 documented as of this encounter
--- OUTSIDE RECORDS SUMMARY | 2024-12-16 12:53 | XMS_ITS | Encounter Summary ---
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
--- OUTSIDE RECORDS SUMMARY | 2024-12-16 12:53 | XMS_ITS | Encounter Summary ---
Author Organization [facility] Address [address] [place] [address] Care Team Providers Care Pony Edger Name Role Phone Luca Thibodeaux Primary Care Provider [phone] [facility], Pcp Primary Care Provider Unavailabl e Reason for Visit * Reason Comments E-prescribe Rx Request Encounter Details Date Type Department Care Team Description 03/06/2022 Refill Adult Medicine [facility] [address] [place] [address] Susan Hi PA-C [address] [place] [address] E-prescribe Rx Request Social History Tobacco Use [...] / Plan: [place]ICARE-[place] / Product Type: MEDICARE [id number] documented in this encounter Plan of Treatment Not on file documented as of this encounter Visit Diagnoses Not on filedocumented in this encounter Care Teams Pony Edger Relationship Specialty Start Date End Date Luca Thibodeaux [address] [place] [address] PCP - General Internal Medicine 01/10/22 04/23/23 [facility], Pcp [address] [place] [address] PCP - General Internal Medicine 04/24/23 documented as of this encounter
--- OUTSIDE RECORDS SUMMARY | 2024-12-16 12:53 | XMS_ITS | Encounter Summary ---
Author Organization [facility] Address [address] [place] [address] Care Team Providers Care Forest Fire Officer Name Role Phone Sally Stewart MD Primary Care Provider Luca Bolanos Primary Care Provider [phone] [facility], Pcp Primary Care [facility] Encounter Details Date Type Department Care Team Description 10/07/2021 Geomorphology Teacher Report Medical Records [address] [place] [address] Brandt Correia MD Social History Tobacco Use [...] on filedocumented in this encounter Care Teams Forest Fire Officer Relationship Specialty Start Date End Date Sally Stewart MD PCP - General Internal Medicine 06/07/21 01/09/22 Luca Thibodeaux [address] [place] [address] [phone] PCP - General Internal Medicine 01/10/22 04/23/23 [facility], Pcp [address] [place] [address] PCP - General Internal Medicine 04/24/23 documented as of this encounter
--- OUTSIDE RECORDS SUMMARY | 2024-12-16 12:53 | XMS_ITS | Encounter Summary ---
Author Organization [facility] Address [address] [place] [address] Care Team Providers Care Nylon Hot Wire Cutter Name Role Phone Ena Egan MD Primary Care Provider Travis Rg MD Primary Care Provider Unavail Sally Jasmine MD Primary Care Provider Luca Bolanos Primary Care Provider [phone] [facility] Pcp Primary Care Provider Christy weiss Encounter Details Date Type Department Care Team Description 08/26/2016 Business Doc Medical Records [address] [place] [address] Abstract, Provider Social History Tobacco Use Types [...] on filedocumented in this encounter Care Teams Nylon Hot Wire Cutter Relationship Specialty Start Date End Date Ena Egan MD PCP - General Internal Medicine 08/03/11 02/17/21 Travis Hansen MD PCP - General Internal Medicine 02/18/21 06/06/21 Sally Stewart MD PCP - General Internal Medicine 06/07/21 01/09/22 Luca Thibodeaux [address] [place] [address] PCP - General Internal Medicine 01/10/22 04/23/23 Count Includes [facility], Pcp [address] [place] [address] PCP - General Internal Medicine 04/24/23 documented as of this encounter
--- OUTSIDE RECORDS SUMMARY | 2024-12-16 12:53 | XMS_ITS | Encounter Summary ---
Author Organization [facility] Address [address] [place] [address] Care Team Providers Care Cable Splicer Apprentice Name Role Phone Ena Egan MD Primary Care Provider Travis Rg MD Primary Care Provider Unavail Sally Jasmine MD Primary Care Provider Luca Bolanos Primary Care Provider [phone] [facility], Pcp Primary Care Provider Christy weiss Encounter Details Date Type Department Care Team Description 10/06/2017 Release of Information Medical Records [address] [place] [id number] Abstract, Provider Social History Tobacco Use Types [...] on filedocumented in this encounter Care Teams Cable Splicer Apprentice Relationship Specialty Start Date End Date Ena Egan MD PCP - General Internal Medicine 08/03/11 02/17/21 Travis Hansen MD PCP - General Internal Medicine 02/18/21 06/06/21 Sally Stewart MD PCP - General Internal Medicine 06/07/21 01/09/22 Luca Thibodeaux [address] [place] [address] PCP - General Internal Medicine 01/10/22 04/23/23 [facility], Pcp [address] [place] [address] PCP - General Internal Medicine 04/24/23 documented as of this encounter
--- OUTSIDE RECORDS SUMMARY | 2024-12-16 12:53 | XMS_ITS | Encounter Summary ---
Author Organization [facility] [place] [facility] Address [address] [place] [address] Care Team Providers Care Movie Critic Name Role Phone Sally Stewart MD Primary Care Provider Luca Bolanos Primary Care Provider [phone] [facility], Pcp Primary Care Provider [facility] Encounter Details Date Type Department Care Team Description 11/18/2021 Artist'S Manager Report Medical Records [address] [place] [address] Glory Ramey Social History Tobacco Use Types [...] on filedocumented in this encounter Care Teams Movie Critic Relationship Specialty Start Date End Date Sally Stewart MD PCP - General Internal Medicine 06/07/21 01/09/22 Luca Thibodeaux [address] [place] [address] [phone] PCP - General Internal Medicine 01/10/22 04/23/23 [facility], Pcp [address] [place] [address] PCP - General Internal Medicine 04/24/23 documented as of this encounter
--- OUTSIDE RECORDS SUMMARY | 2024-12-16 12:53 | XMS_ITS | Encounter Summary ---
Author Organization [facility] Address [address] [place] [address] Care Team Providers Care Security Representative Name Role Phone Sally Stewart MD Primary Care Provider Luca Bolanos Primary Care Provider [facility], Pcp [facility] Care [facility] Encounter Details Date Type Department Care Team Description 12/16/2021 Assembly And Packing Supervisor Report Medical Records [address] [place] [address] Glory Ramey Social History Tobacco Use Types [...] filedocumented in this encounter Care Teams Security Representative Relationship Specialty Start Date End Date Sally Stewart MD PCP - General Internal Medicine 06/07/21 01/09/22 Luca Thibodeaux [address] [place] [address] [phone] PCP - General Internal Medicine 01/10/22 04/23/23 [facility], Pcp [address] [place] [address] PCP - General Internal Medicine 04/24/23 documented as of this encounter
--- OUTSIDE RECORDS SUMMARY | 2024-12-16 12:53 | XMS_ITS | Encounter Summary ---
Author Organization [facility] Address [address] [place] [address] Care Team Providers Care Flat Knitter Name Role Phone Luca Thibodeaux Primary Care Provider [phone] [facility], Pcp Primary Care Provider [facility] Encounter Details Date Type Department Care Team Description 04/08/2022 Pt. Non Urgent Medical Question Adult Medicine [address] [address] Luca Thibodeaux [address] [place] [address] Social History Tobacco Use Types Packs/Day Years [...] on filedocumented in this encounter Care Teams Flat Knitter Relationship Specialty Start Date End Date Luca Thibodeaux [address] [place] [address] PCP - General Internal Medicine 01/10/22 04/23/23 [facility], Pcp [address] [place] [phone] PCP - General Internal Medicine 04/24/23 documented as of this encounter
--- OUTSIDE RECORDS SUMMARY | 2024-12-16 12:53 | XMS_ITS | Encounter Summary ---
Author Organization [facility] Address [address] [place] [address] Care Team Providers Care Maintenance Leader Name Role Phone Sally Stewart MD Primary Care Provider Luca Bolanos Primary Care Provider [phone] [facility] Primary Care Provider [facility] Encounter Details Date Type Department Care Team Description 07/19/2021 Orders Only Radiology - [place] [address] [place] [address] Susan Hi PA-C [address] [place] [address] [phone] Social History Tobacco Use Types Packs/Day Years [...] on filedocumented in this encounter Care Teams Maintenance Leader Relationship Specialty Start Date End Date Sally Stewart MD PCP - General Internal Medicine 06/07/21 01/09/22 Luca Thibodeaux [address] [place], [place] [phone] PCP - General Internal Medicine 01/10/22 04/23/23 Sarbjit, Wolf [address] [place] [address] PCP - General Internal Medicine 04/24/23 documented as of this encounter
--- OUTSIDE RECORDS SUMMARY | 2024-12-16 12:53 | XMS_ITS | Encounter Summary ---
Author Organization [facility] Address [address] [place] [address] Care Team Providers Care Toll Bridge Operator Name Role Phone Sally Stewart MD Primary Care Provider Luca Bolanos Primary Care Provider [phone] [facility] Primary Care Provider [facility] Reason for Visit * Reason Onset Date Comments Pre Op Visit 10/20/2021 Encounter Details Date Type Department Care Team Description 10/20/2021 Telephone Adult Medicine [address] [address] Sally Stewart MD Pre Op Visit Social History Tobacco Use Types Packs/Day Years [...] encounter Miscellaneous Notes * Telephone Encounter - Sally Stewart - 10/21/2021 8:28 AM EST She was to be cleared by cardiology per my note. Please ask her to follow up with cardiology. I believe he did all the testings * Telephone Encounter - Ellie Lan - 10/20/2021 3:06 PM EST Fax received and placed in Dr's bin. * Telephone Encounter - Jesica Maddox - 10/20/2021 2:00 PM EST Tal Stewart I faxed the office note, EKG and stress test to you on . According to that information Dr. Shelton office is waiting for you to Addened your office note from . Thank you documented in this encounter Plan of Treatment Not on file documented as of this encounter Visit Diagnoses Not on filedocumented in this encounter Care Teams Toll Bridge Operator Relationship Specialty Start Date End Date Sally Stewart MD PCP - General Internal Medicine 06/07/21 01/09/22 Luca Thibodeaux [address] [place] [address] PCP - General Internal Medicine 01/10/22 04/23/23 [facility], [address] [address] PCP - General Internal Medicine 04/24/23 documented as of this encounter
--- OUTSIDE RECORDS SUMMARY | 2024-12-16 12:53 | XMS_ITS | Encounter Summary ---
Author Organization [facility] Address [address] [place] [address] Care Team Providers Care Journeyman Apprentice Electricians Name Role Phone Ena Egan MD Primary Care Provider Travis Rg MD Primary Care Provider Sally Kim MD Primary Care Provider Luca Bolanos Primary Care Provider [phone] [facility], Pcp Primary Care Provider Unavailabl e Reason for Visit * Reason Onset Date Comments Faxed Order 09/13/2017 Encounter Details Date Type Department Care Team Description 09/13/2017 Telephone Adult [address] [address] Ena Egan MD Faxed Order Social History [...] TO BE SIGN AND FAX BACK TO [phone] documented in this encounter Plan of Treatment Not on file documented as of this encounter Visit Diagnoses Not on filedocumented in this encounter Care Teams Journeyman Apprentice Electricians Relationship Specialty Start Date End Date Ena Egan MD PCP - General Internal Medicine 08/03/11 02/17/21 Travis Hansen MD PCP - General Internal Medicine 02/18/21 06/06/21 Sally Stewart MD PCP - General Internal Medicine 06/07/21 01/09/22 Luca Thibodeaux [address] [place] [address] PCP - General Internal Medicine 01/10/22 04/23/23 [facility] [address] [place] [address] PCP - General Internal Medicine 04/24/23 documented as of this encounter
--- OUTSIDE RECORDS SUMMARY | 2024-12-16 12:53 | XMS_ITS | Encounter Summary ---
Author Organization [facility] Address [address] [place] [address] Care Team Providers Care Radio Engineer Name Role Phone Ena Egan MD Primary Care Provider Travis Rg MD Primary Care Provider Unavail Sally Jasmine MD Primary Care Provider Luca Bolanos Primary Care Provider [phone] [facility] Pcp Primary Care Provider Christy weiss Encounter Details Date Type Department Care Team Description 09/19/2016 Hospital Medical Records [address] Social History Tobacco Use Types Packs/Day [...] on filedocumented in this encounter Care Teams Radio Engineer Relationship Specialty Start Date End Date Ena Egan MD PCP - General Internal Medicine 08/03/11 02/17/21 Travis Hansen MD PCP - General Internal Medicine 02/18/21 06/06/21 Sally Stewart MD PCP - General Internal Medicine 06/07/21 01/09/22 Luca Thibodeaux [address] [place] [address] PCP - General Internal Medicine 01/10/22 04/23/23 [facility], Pcp [address] [place] [address] PCP - General Internal Medicine 04/24/23 documented as of this encounter
--- OUTSIDE RECORDS SUMMARY | 2024-12-16 12:53 | XMS_ITS | Encounter Summary ---
Author Organization [facility] Address [address] [place] [address] Care Team Providers Care Mining Engineer Name Role Phone Luca Thibodeaux Primary Care Provider [phone] [facility] Pcp Primary Care Provider [facility] Encounter Details Date Type Department Care Team Description 04/08/2022 Pt. Non Urgent Medical Question Adult Medicine [address] [address] Luca Thibodeaux [address] [place] [address] Social History Tobacco Use Types Packs/Day Years [...] on filedocumented in this encounter Care Teams Mining Engineer Relationship Specialty Start Date End Date Luca Thibodeaux [address] [place] [address] PCP - General Internal Medicine 01/10/22 04/23/23 [facility], Pcp [address] [place] [address] PCP - General Internal Medicine 04/24/23 documented as of this encounter
--- OUTSIDE RECORDS SUMMARY | 2024-12-16 12:53 | XMS_ITS | Clinical Summary ---
Author Organization [address] Address [address] [place] [phone] Phone Care Team Providers Care Settlement Processor Name Role Phone Luca Thibodeaux MD Primary [...] of both hands 08/30/2022 Chronic atrial fibrillation (CMS/HCC V24, CMS/HC C V28) 08/22/2022 Gastroesophageal reflux disease without esophagi tis 08/22/2022 Fractures 02/09/2022 Overview (08/30/2024): Per ot: Fractures of ribs 3 and 4 (left side), Fractures of both wrists and left thumb Atrial fibrillation with RVR (CMS/HCC V24, CMS/H CC V28) 12/20/2021 Osteopenia 06/04/2021 Fecal occult blood test positive 06/15/2020 Overview (08/30/2024): Colonoscopy was normal Renal cyst, right 04/25/2019 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 (CMS/HCC V24, CMS/HCC V28) 02/09/2018 Pure hypercholesterolemia 10/30/2017 Lumbar spinal stenosis [...] D deficiency 03/10/2016 Major depression, recurrent, chronic (CMS/HCC V2 4) 12/23/2013 Overview (08/30/2024): [place] admission 09/2016, 05/2017, [facility] Admission 08/2017 [...] 65yo and older 08/22/2022,07/06/2021,05/11/2018 Influenza, Unspecified 08/19/2021 Pfizer SARS-CoV-2 COVID-19, mRNA, LNP-S, preservative free 05/30/2021 [...] lt breast UPPER GASTROINTESTINAL ENDOSCOPY 2013 PROCEDURE: [place] UPPER GI ENDOSCOPY PERFORMED; COMMENT: normal UPPER GASTROINTESTINAL ENDOSCOPY 08/2001 PROCEDURE: [place] UPPER GI ENDOSCOPY PERFORMED; COMMENT: WNL APPENDECTOMY 01/2020 PROCEDURE: HISTORICAL APPENDECTOMY; COMMENT: [place] COLONOSCOPY 09/11/2020 PROCEDURE: HISTORICAL COLONOSCOPY; COMMENT: Minimal diverticulosis; 3 mm cecal polyp: Tubular adenoma. APPENDECTOMY PROCEDURE: [place] APPENDECTOMY Medical History Medical History Date Comments Irritable bowel syndrome DX:Irri table bowel syndrome; COMMENT: EGD, Colonoscopy (-)08/06/01 Lumbosacral spondylosis with out myelopathy DX:Lumbosacral spondylosis w ithout myelopathy Generalized osteoarthrosis, involving hand DX:Generalized osteoarthrosi s, involving hand Dermatophytosis of foot DX:[place] tophytosis of foot Iron deficiency anemia secon [...] DX:Pur e hypercholesterolemia Major depression, recurrent, chronic (CMS/HCC V24) 12/23/2013 DX:Major depression, recurre nt, chronic (HCC); COMMENT: [place] admission 09/2016, 05/2017, [facility] Ad[facility] 08/2017 [...] Due Date Last Done Comments RSV Immunization Adult Patients (1 - Risk 60-74 years 1-dose series) [...] age to complete this topic Meningococcal B Vaccine Aged Out No l onger eligible based on patient's age to complete [...] 4:21 PM EST Screening mammogram, encounter for HM HEPATITIS C SCREENING Routine 09/15/2022 LIPID PANEL [...] is recommended in 1 year. MAMMO LOCATION: [facility], [address] [place] [address], [id number], . -------- FINAL REPORT -------- Dictated By: Domitila Joshua Dictated Date: 08/09/2024 15:18 ET Assigned Physician: Domitila Joshua Reviewed and Electronically Signed By: Domitila Joshua Signed Date: 08/09/2024 15:19 ET Workstation ID: [id number] Transcribed By: Self Edit Transcribed Date: 08/09/2024 [...] is recommended in 1 year. MAMMO LOCATION: [facility], [address] [place] [address], [id number], . -------- FINAL REPORT -------- Dictated By: Domitila Joshua Dictated Date: 08/09/2024 15:18 ET Assigned Physician: Domitila Joshua Reviewed and Electronically Signed By: Domitila Joshua Signed Date: 08/09/2024 15:19 ET Workstation ID: [id number] Transcribed By: Self Edit Transcribed Date: 08/09/2024 15:18 ET Caitlyn Swanson NP IMG BI PROCEDURES Final Result * Hepatitis C Screening (09/15/2022) Hepatitis C Screening Abstracted Historical Provider HEALTH [...] Final * DXA BONE DENSITY STUDY 1+ MARK MCCONNELL (06/02/2021 4:10 PM EDT) Anatomical Region Laterality [...] (World Health Organization Fracture Risk Assessment) [facility] Department of Internal Medicine recommends using National [...] (World Health Organization Fracture Risk Assessment) [facility] Department of Internal Medicine recommendsusing National Osteoporosis [...] to Health Maintenance Insurance MEDICARE [facility] [address] [place] [id number] Care Teams Settlement Processor Relationship Specialty Start Date End Date Luac Thibodeaux MD [address], [place] PCP - General Internal Medicine 01/10/22
--- OUTSIDE RECORDS SUMMARY | 2024-12-16 12:53 | XMS_ITS | Encounter Summary ---
Author Organization [facility] Address [address] [place] [address] Care Team Providers Care Inspector Quality Assurance Name Role Phone Ena Egan MD Primary Care Provider Travis Rg MD Primary Care Provider [facility] Sally Jasmine MD Primary Care Provider Luca Bolanos Primary Care Provider [phone] [facility], Pcp Primary Care Provider [facility] Encounter Details Date Type Department Care Team Description 02/23/2017 Telephone Adult [address] [address] Ena Egan MD Social History Tobacco Use [...] filedocumented in this encounter Care Teams Inspector Quality Assurance Relationship Specialty Start Date End Date Ena Eagn MD PCP - General Internal Medicine 08/03/11 02/17/21 Travis Hansen MD PCP - General Internal Medicine 02/18/21 06/06/21 Sally Stewart MD PCP - General Internal Medicine 06/07/21 01/09/22 Luca Thibodeaux [address] [place] [address] PCP - General Internal Medicine 01/10/22 04/23/23 [facility], Pcp [address] [place] [address] PCP - General Internal Medicine 04/24/23 documented as of this encounter
--- OUTSIDE RECORDS SUMMARY | 2024-12-16 12:53 | XMS_ITS | Encounter Summary ---
Author Organization [facility] Address [address] [place] [address] Care Team Providers Care Folder Gluer Operator Name Role Phone Luca Thibodeaux Primary Care Provider [phone] [facility], Pcp Primary Care Provider Unavailabl e Reason for Visit * Reason Comments E-prescribe Rx Request Encounter Details Date Type Department Care Team Description 04/16/2022 Refill Adult Medicine [address] [address] Sally Stewart MD E-prescribe Rx Request Social History Tobacco [...] Telephone Encounter - Irma Campos M.A. - 04/19/2022 2:05 PM EDT [facility] 02/04/22- Sick visit Last Med review- 12/20/21 at Hospital f/u NOV 04/21/22 - w/ NEW PCP Will you refill until pending appointment? * Telephone Encounter - Darlene Villalba - 04/18/2022 11:14 AM EDT Patient would like script to be: E-PRESCRIBED/FAXED TO PHARMACY WHEN WAS THE PATIENT'S LAST APPOINTMENT IN ADULT MEDICINE? 02/04/22 WHEN WAS THE LAST TIME THE PATIENT SAW THEIR PCP? Never seen pcp Does patient have an upcoming appointment? Yes 04/21/22 (THE MEDICATION REQUESTED IS ON THE MED [...] / Plan: [place] / Product Type: MEDICARE [id number] documented in this encounter Plan of Treatment Not on file documented as of this encounter Visit Diagnoses Not on filedocumented in this encounter Care Teams Folder Gluer Operator Relationship Specialty Start Date End Date Luca Thibodeaux [address] [place] [address] PCP - General Internal Medicine 01/10/22 04/23/[address] [address] PCP - General Internal Medicine 04/24/23 documented as of this encounter
--- OUTSIDE RECORDS SUMMARY | 2024-12-16 12:53 | XMS_ITS | Encounter Summary ---
Author Organization [facility] Address [address] [place] [address] Care Team Providers Care Hand Bulldozer Name Role Phone Luca Thibodeaux Primary Care Provider [phone] [facility], Pcp Primary Care [facility] Encounter Details Date Type Department Care Team Description 03/22/2022 Pt. Non Urgent Medical Question Adult Medicine [address] [address] Sydney Gilmore MD [address] [place] [address] [phone] Social History Tobacco Use Types Packs/Day Years [...] filedocumented in this encounter Care Teams Hand Bulldozer Relationship Specialty Start Date End Date Luca Thibodeaux [address] [place] [address] [id number] PCP - General Internal Medicine 01/10/22 04/23/23 [facility], [address] [address] PCP - General Internal Medicine 04/24/23 documented as of this encounter
--- OUTSIDE RECORDS SUMMARY | 2024-12-16 12:53 | XMS_ITS | Encounter Summary ---
Author Organization [facility] Address [address] [place] [address] Care Team Providers Care Fire Fighter [employer] Name Role Phone Ena Egan MD Primary Care Provider Travis Rg MD Primary Care Provider Unavail Sally Jasmine MD Primary Care Provider Luca Bolanos Primary Care Provider [phone] [facility] Pcp Primary Care Provider Christy weiss Encounter Details Date Type Department Care Team Description 09/18/2016 Hospital Medical Records [address] Social History Tobacco Use Types Packs/Day [...] on filedocumented in this encounter Care Teams Fire Fighter [employer] Relationship Specialty Start Date End Date Ena Egan MD PCP - General Internal Medicine 08/03/11 02/17/21 Travis Hansen MD PCP - General Internal Medicine 02/18/21 06/06/21 Sally Stewart MD PCP - General Internal Medicine 06/07/21 01/09/22 Luca Thibodeaux [address] [place] [address] PCP - General Internal Medicine 01/10/22 04/23/23 [facility], Pcp [address] [place] [address] PCP - General Internal Medicine 04/24/23 documented as of this encounter
--- OUTSIDE RECORDS SUMMARY | 2024-12-16 12:53 | XMS_ITS | Encounter Summary ---
Author Organization [facility] Address [address] [place] [address] Care Team Providers Care Library Director Name Role Phone Saira Valencia MD Primary Care Provider [phone] Ayan Correia MD Primary Care Provider Unavail Ena Iniguez MD Primary Care Provider Travis Rg MD Primary Care Provider Unavailab Sally Jasmine MD Primary Care Provider Luca Bolanos Primary Care Provider [phone] [facility], Pcp Primary Care Provider Unavaildawn weiss Encounter Details Date Type Department Care Team Description 08/20/2002 Orders Only Medical [address] [place] [address] Loc Diamond MD [address] [place] [address] [phone] Social History Tobacco Use Types Packs/Day Years Used Date Smoking Tobacco: Never Assessed Sex Assigned at Date Recorded Not on file Job Start Date Occupation Industry Not on file Not on file Not on file documented as of this encounter Plan of Treatment Not on file documented as of this encounter Visit Diagnoses Not on filedocumented in this encounter Care Teams Library Director Relationship Specialty Start Date End Date Saira Valencia MD [address] [place] [address] [phone] PCP - General 08/18/09 08/02/11 Ayan Correia MD PCP - General 07/04/1999 08/17/09 Ena Egan MD PCP - General Internal Medicine 08/03/11 02/17/21 Travis Hansen MD PCP - General Internal Medicine 02/18/21 06/06/21 Sally Stewart MD PCP - General Internal Medicine 06/07/21 01/09/22 Luca Thibodeaux [address] [place] [address] PCP - General Internal Medicine 01/10/22 04/23/23 [facility], Pcp [address] [place] [address] PCP - General Internal Medicine 04/24/23 documented as of this encounter
--- OUTSIDE RECORDS SUMMARY | 2024-12-16 12:53 | XMS_ITS | Encounter Summary ---
Author Organization [facility] Address [address] [place] [address] Care Team Providers Care Mottler Operator Name Role Phone Ena Egan MD Primary Care Provider Travis Rg MD Primary Care Provider Unavail Sally Jasmine MD Primary Care Provider Luca Bolanos Primary Care Provider [phone] [facility], Pcp Primary Care Provider Christy weiss Encounter Details Date Type Department Care Team Description 03/27/2017 Release of Information Medical Records [address] [place] [id number] Abstract, Provider Social History Tobacco Use Types [...] on filedocumented in this encounter Care Teams Mottler Operator Relationship Specialty Start Date End Date Ena Egan MD PCP - General Internal Medicine 08/03/11 02/17/21 Travis Hansen MD PCP - General Internal Medicine 02/18/21 06/06/21 Sally Stewart MD PCP - General Internal Medicine 06/07/21 01/09/22 Luca Thibodeaux [address] [place] [address] PCP - General Internal Medicine 01/10/22 04/23/23 [facility], Pcp [address] [place] [address] PCP - General Internal Medicine 04/24/23 documented as of this encounter
--- OUTSIDE RECORDS SUMMARY | 2024-12-16 12:53 | XMS_ITS | Encounter Summary ---
Author Organization [facility] Address [address] [place] [address] Care Team Providers Care Transport Tech Name Role Phone Ena Egan MD Primary Care Provider Travis Rg MD Primary Care Provider Unavail Sally Jasmine MD Primary Care Provider Luca Bolanos Primary Care Provider [phone] Count Includes [facility], Pcp Primary Care Provider Christy Encounter Details Date Type Department Care Team Description 11/02/2016 Hospital Medical Records [address] [place] [address] Colby Oliva [address] [place] [address] Social History Tobacco Use Types Packs/Day Years [...] on filedocumented in this encounter Care Teams Transport Tech Relationship Specialty Start Date End Date Ena Egan MD PCP - General Internal Medicine 08/03/11 02/17/21 Travis Hansen MD PCP - General Internal Medicine 02/18/21 06/06/21 Sally Stewart MD PCP - General Internal Medicine 06/07/21 01/09/22 Luca Thibodeaux [address] [place] [address] PCP - General Internal Medicine 01/10/22 04/23/23 Count Includes [facility], [address] [place] [address] PCP - General Internal Medicine 04/24/23 documented as of this encounter
--- OUTSIDE RECORDS SUMMARY | 2024-12-16 12:53 | XMS_ITS | Encounter Summary ---
Author Organization [facility] Address [address] [place] [address] Care Team Providers Care Policy Analyst Name Role Phone Ena Egan MD Primary Care Provider Travis Rg MD Primary Care Provider Unavail Sally Jasmine MD Primary Care Provider Luca Bolanos Primary Care Provider [phone] [facility] Pcp Primary Care Provider Christy weiss Encounter Details Date Type Department Care Team Description 03/20/2017 Hospital Medical Records [address] [place] [address] Timothy Jose Social History Tobacco Use Types [...] filedocumented in this encounter Care Teams Policy Analyst Relationship Specialty Start Date End Date Ena Egan MD PCP - General Internal Medicine 08/03/11 02/17/21 Travis Hansen MD PCP - General Internal Medicine 02/18/21 06/06/21 Sally Stewart MD PCP - General Internal Medicine 06/07/21 01/09/22 Luca Thibodeaux [address] [place] [address] PCP - General Internal Medicine 01/10/22 04/23/23 [facility], Pcp [address] [place] [address] PCP - General Internal Medicine 04/24/23 documented as of this encounter
--- OUTSIDE RECORDS SUMMARY | 2024-12-16 12:53 | XMS_ITS | Encounter Summary ---
Author Organization [facility] Address [address] [place] [address] Care Team Providers Care Combat Engineer Name Role Phone Sally Stewart MD Primary Care Provider Luca Bolanos Primary Care Provider [phone] [facility], Pcp Primary Care Provider [facility] Encounter Details Date Type Department Care Team Description 12/09/2021 Netbackup Administrator Report Medical Records [address] [place] [address] [place] [address] [place] [address] Social History Tobacco Use Types Packs/Day Years [...] on filedocumented in this encounter Care Teams Combat Engineer Relationship Specialty Start Date End Date Sally Stewart MD PCP - General Internal Medicine 06/07/21 01/09/22 Luca Thibodeaux [address] [place] [address] PCP - General Internal Medicine 01/10/22 04/23/23 [facility], Pcp [address] [place] [address] PCP - General Internal Medicine 04/24/23 documented as of this encounter
--- OUTSIDE RECORDS SUMMARY | 2024-12-16 12:53 | XMS_ITS | Encounter Summary ---
Author Organization [facility] Address [address] [place] [address] Care Team Providers Care Saw Sharpener Name Role Phone Luca Thibodeaux Primary Care Provider [phone] [facility], Pcp Primary Care Provider Unavailabl e Reason for Visit * Reason Onset Date Comments skin problems 02/09/2022 no relief with L otrisone cream Encounter Details Date Type Department Care Team Description 02/09/2022 Pt. Non Urgent Medical Question Adult Medicine [address] [phone] Sydney Gilmore MD [address] [place] [address] [phone] Social History Tobacco Use Types Packs/Day Years [...] was confirmed or suspected to have Coronavirus/COVID-19? Unable to assess 02/03/2022 2:55 PM EDT documented as of this encounter Miscellaneous Notes * Telephone Encounter - Sharee Ji M.A. - 02/10/2022 7:30 AM EDTFrom: Lucita Parekh To: Warren Gilmore Sent: 02/09/2022 5:21 PM EDT Subject: Foot fungus Hello Dr Gilmore, My prescription cream is all gone but the itchy redness on both feet is not. My insurance company will not authorize another refill until the . Please advise. Thank you Lucita documented in this encounter Plan of Treatment Not on file documented as of this encounter Visit Diagnoses Not on filedocumented in this encounter Care Teams Saw Sharpener Relationship Specialty Start Date End Date Luca Thibodeaux [address] [place] [address] [phone] PCP - General Internal Medicine 01/10/22 04/23/23 [facility], Pcp [address] [place] [address] PCP - General Internal Medicine 04/24/23 documented as of this encounter
--- OUTSIDE RECORDS SUMMARY | 2024-12-16 12:53 | XMS_ITS | Encounter Summary ---
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 Medical Records [address] [place] [phone] Abstract, Provider Social History Tobacco Use Types [...] on filedocumented in this encounter Care Teams Creel Selector Relationship Specialty Start Date End Date Ena Egan MD PCP - General Internal Medicine 08/03/11 02/17/21 Travis Hansen MD PCP - General Internal Medicine 02/18/21 06/06/21 Sally Stewart MD PCP - General Internal Medicine 06/07/21 01/09/22 Luca Thibodeaux [address] [place] [address] PCP - General Internal Medicine 01/10/22 04/23/23 [facility], Pcp [address] [place] [address] PCP - General Internal Medicine 04/24/23 documented as of this encounter
--- OUTSIDE RECORDS SUMMARY | 2024-12-16 12:53 | XMS_ITS | Encounter Summary ---
Author Organization [facility] Address [address] [place] [address] Care Team Providers Care Carpenters Name Role Phone Ena Egan MD Primary Care Provider Travis Rg MD Primary Care Provider Unavail Sally Jasmine MD Primary Care Provider Luca Bolanos Primary Care Provider [phone] [facility] Pcp Primary Care Provider Christy weiss Encounter Details Date Type Department Care Team Description 11/01/2016 Hospital Medical Records [address] [place] [address] Timothy Jose Social History Tobacco Use Types [...] on filedocumented in this encounter Care Teams Carpenters Relationship Specialty Start Date End Date Ena Egan MD PCP - General Internal Medicine 08/03/11 02/17/21 Travis Hansen MD PCP - General Internal Medicine 02/18/21 06/06/21 Sally Stewart MD PCP - General Internal Medicine 06/07/21 01/09/22 Luca Thibodeaux [address] [place] [address] PCP - General Internal Medicine 01/10/22 04/23/23 [facility], Pcp [address] [place] [address] PCP - General Internal Medicine 04/24/23 documented as of this encounter
--- OUTSIDE RECORDS SUMMARY | 2024-12-16 12:53 | XMS_ITS | Encounter Summary ---
Author Organization [facility] Address [address] [place] [address] Care Team Providers Care Double End Tenon Operator Name Role Phone Ena Egan MD Primary Care Provider Travis Rg MD Primary Care Provider UnavailSlaly Hutton MD Primary Care Provider Luca Bolanos Primary Care Provider [phone] [facility], Pcp Primary Care Provider Unavailabl e Reason for Referral * Non [facility] (Routine) - Authorized/Booked Specialty Diagnoses / Procedures Referred By Kp t Referred To Contact Physiatry Diagnoses Abnormal gait Procedures REFERRAL TO PHYSIATRY Lauren Hernandez MD [address] [place] [address] [facility] [address] [place] [address] Referral ID Status Reason Start Date Expiration Date V isits Requested Visits Authorized [id number] LTR 10/10/17 Authorized/ Booked 10/03/2017 10/03/2018 1 1 * Radiology Services (Routine) - Closed Specialty Diagnoses / Procedures Referred By Kp t Referred To Contact Radiology Diagnoses Abnormal gait Procedures MRI OF LUMBAR SPINE NO CONTRAST Lauren Hernandez MD [address] [place] [address] [facility] [address] [place] [address] Referral ID Status Reason Start Date Expiration Date Visits Re quested Visits Authorized [id number] Closed 10/03/2017 12/03/2017 1 1 Encounter Details Date Type Department Care Team Description 10/03/2017 Orders Only Adult Medicine [address] [address] Lauren Hernandez MD Abnormal gait Social History Tobacco Use Types Packs/Day Years [...] documented as of this encounter Results * MRI OF LUMBAR SPINE NO CONTRAST (10/20/2017 2:44 PM EST) 10/20/2017 4:45 PM EST Impressions [facility] - 10/20/2017 6:07 PM EST IMPRESSION: Multilevel degenerative changes as detailed in the body of the report with mild central stenosis L2-3 and L3-4 and bilateral foraminal stenosis L2-3, L3-4 and L4-5 levels. Narrative [facility] - 10/20/2017 6:07 PM EST LUMBAR SPINE MRI WITHOUT CONTRAST: History: Abnormal gait COMPARISON: 12/15/2016 CT abdomen/pelvis Technique: Multiplanar, multisequence noncontrast lumbar spine MRI using Department protocol 1.5 Ana magnet. Conus medullaris appears normal. Lumbar vertebrae are normal in size and signal intensity. Cystic nerve sheath dilatation incompletely visualized left T10 level. Mild generalized dural ectasia. 1.8 cm left S2 sacral cyst. 3.3 cm benign right renal cyst as completely imaged on CT. Nurse Instructor view demonstrates distended urinary bladder. L1-2: Posterior longitudinal ligament ossification without significant mass effect on adjacent neural structures are central stenosis. Diffuse disc bulge causing moderate bilateral foraminal stenosis. L2-3: Diffuse disc bulge and facet hypertrophy causing moderate bilateral foraminal stenosis right greater than left. Facet hypertrophy and hypertrophy ligamentum flavum causing mild central stenosis. L3-4: 3 mm anterolisthesis L3-4. Diffuse disc bulge, degenerative facet hypertrophy and hypertrophy ligamentum flavum causing mild central and mild bilateral foraminal stenosis. Asymmetric right-sided disc bulge impinges on the right L3 foraminal nerve root. L4-5: Diffuse disc bulge and facet hypertrophy without significant central stenosis. Moderate to severe bilateral foraminal narrowing. Mild degenerative endplate changes. L5-S1: Mild diffuse disc bulge without significant central or foraminal stenosis. Bilateral facet hypertrophy. Procedure Note Dillon Felix MD - 10/20/2017 LUMBAR SPINE MRI WITHOUT CONTRAST: History: Abnormal gait COMPARISON: 12/15/2016 CT abdomen/pelvis Technique: Multiplanar, multisequence noncontrast lumbar spine MRI usingDepartment protocol 1.5 Ana magnet. Conus medullaris appears normal. Lumbar vertebrae are normal in size andsignal intensity. Cystic nerve sheath dilatation incompletely visualized left T10 level.Mild generalized dural ectasia. 1.8 cm left S2 sacral cyst. 3.3 cm benign right renal cyst ascompletely imaged on CT. Nurse Instructor view demonstrates distended urinary bladder. L1-2: Posterior longitudinal ligament ossification without significantmass effect on adjacent neural structures are central stenosis. Diffuse disc bulge causingmoderate bilateral foraminal stenosis. L2-3: Diffuse disc bulge and facet hypertrophy causing moderate bilateralforaminal stenosis right greater than left. Facet hypertrophy and hypertrophy ligamentumflavum causing mild central stenosis. L3-4: 3 mm anterolisthesis L3-4. Diffuse disc bulge, degenerative facethypertrophy and hypertrophy ligamentum flavum causing mild central and mild bilateralforaminal stenosis. Asymmetric right-sided disc bulge impinges on the right L3 foraminal nerveroot. L4-5: Diffuse disc bulge and facet hypertrophy without significant centralstenosis. Moderate to severe bilateral foraminal narrowing. Mild degenerative endplatechanges. L5-S1: Mild diffuse disc bulge without significant central or foraminalstenosis. Bilateral facet hypertrophy. IMPRESSION IMPRESSION: Multilevel degenerative changes as detailed in the body of thereport with mild central stenosis L2-3 and L3-4 and bilateral foraminal stenosis L2-3, L3-4and L4-5 levels. Lauren Hernandez MD MRI [facility] documented in this encounter Visit Diagnoses Diagnosis Abnormal gait Abnormality of gait Abnormal gait Abnormality of gait documented in this encounter Care Teams Double End Tenon Operator Relationship Specialty Start Date End Date Ena Egan MD PCP - General Internal Medicine 08/03/11 02/17/21 Travis Hansen MD PCP - General Internal Medicine 02/18/21 06/06/21 Sally Stewart MD PCP - General Internal Medicine 06/07/21 01/09/22 Luca Thibodeaux [address] [place] [address] PCP - General Internal Medicine 01/10/22 04[facility]23[facility]23 [facility] [address] [place] [address] PCP - General Internal Medicine 04/24/23 documented as of this encounter
--- OUTSIDE RECORDS SUMMARY | 2024-12-16 12:53 | XMS_ITS | Encounter Summary ---
Author Organization [facility] Address [address] [place] [address] Care Team Providers Care Paving Bed Maker Name Role Phone Luca Thibodeaux Primary Care Provider [phone] [facility], Pcp Primary Care Provider [facility] Encounter Details Date Type Department Care Team Description 03/30/2022 Pt. Non Urgent Medical Question Adult Medicine [address] [address] Luca Thibodeaux [address] [place] [phone] Social History Tobacco Use Types Packs/Day Years [...] Progress Notes * Aurea Vu M.A. - 03/30/2022 12:09 PM EDT Oleg fabiang sent documented in this encounter Miscellaneous Notes * Telephone Encounter - Aurea Vu M.A. - 03/30/2022 12:07 PM EDTFrom: Lucita Parekh To: Neelam Thibodeaux Sent: 03/30/2022 11:44 AM EDT Subject: Referral for Traffic Personnel Supervisor On 01/27/23, I received [facility] my [facility] doctor, Dr Savage. I have called them 3 times, leaving the required message each time. I have not heard back yet. Do you folks have another recommendation for me to try. I have a history of skin cancer and would sincer cliff continue with my yearly check ups soon. Thank you Lucita documented in this encounter Plan of Treatment Not on file documented as of this encounter Visit Diagnoses Not on filedocumented in this encounter Care Teams Paving Bed Maker Relationship Specialty Start Date End Date Luca Thibodeaux [address] [place] [address] PCP - General Internal Medicine 01/10/22 04/23/23 [facility] [place] [address] PCP - General Internal Medicine 04/24/23 documented as of this encounter
--- OUTSIDE RECORDS SUMMARY | 2024-12-16 12:53 | XMS_ITS | Encounter Summary ---
Author Organization [facility] Address [address] [place] [address] Care Team Providers Care Lamination Assembler Name Role Phone Sally Stewart MD Primary Care Provider Luca Bolanos Primary Care Provider [phone] [facility], Pcp Primary Care Provider [facility] Encounter Details Date Type Department Care Team Description 11/22/2021 Home Health Certification Medical Records [address] [place] [address] M[place] Frederick [address] [place] [address] Social History Tobacco Use Types Packs/Day Years [...] on filedocumented in this encounter Care Teams Lamination Assembler Relationship Specialty Start Date End Date Sally Stewart MD PCP - General Internal Medicine 06/07/21 01/09/22 Luca Thibodeaux [address] [place] [address] PCP - General Internal Medicine 01/10/22 04/23/23 [facility], Pcp [address] [place] [address] PCP - General Internal Medicine 04/24/23 documented as of this encounter
== END 2024-12-16 10:56 | disposition home or self-care (01) ==
LOC: HO.XRAY 10:55
PROVIDERS: Visit Provider Anesthesiology
DX: M25.511 Pain in right shoulder (principal)
CPT/HCPCS: 73030

== ENCOUNTER → 2024-12-16 10:59 | Outpatient (BNV) | payer MEDICARE, OTHER, SELFPAY | PROVIDERS: Visit Provider Radiology Diagnostic Radiology | DX: M19.011 Primary osteoarthritis, right shoulder (principal) | CPT/HCPCS: 73030 ==

== ENCOUNTER 2025-01-02 11:53 | Outpatient (AMB) | payer MEDICARE, OTHER, SELFPAY ==
[2025-01-02 11:48] VITALS: BMI 29.2
--- NOTE | 2025-01-02 11:48 | A.OFFVIS_ITS ---
Vital Signs 01/02/25 11:48 Height 5 ft 6 in Weight 181 lb BMI 29.2 Intake Visit Reasons: xray results Allergies No Known Allergies [No Known Allergies*] Allergy (Verified 01/02/25 11:48) HPI Comments Details: Lucita is back in my office to discuss the options for her treatment in the future. She is suffering from severe osteoarthritis right shoulder with severe pain radiating to the arm and forearm. She received intra-articular right shoulder injection in March of 2024. She reported 6 months of the pain relief however she reported that recently she started to feel more and more severe pain in the right shoulder. She is concerned about osteoporosis and does not want to repeat the steroid injections. I offered the patient PRP injection. She agreed to go for the procedure. She is scheduled for this procedure in February 11. She went for the x-ray of the right shoulder and it demonstrated significant gle nohumeral and acromioclavicular cixg-za-bfnb arthritis. The patient was explained that she does not have much of the osteoporosis according to that x- ray. See the full report as below. Prior: very pleasant 73 years old female who presented today in my office after the therapeutic right intra-articular shoulder injection which was performed on 04/02/2024. She reports today that her pain in his shoulder started 1 year ago she relates her pain in his shoulder to arthritis. She reported that on x-ray she was told she has ?qavi-rb-vjol ?arthritis. She had extensive physical therapy for her knee problems however she never had any physical therapy for her shoulder. She had intra-articular shoulder injection. Her past medical history significant for rate control atrial fibrillation she is on Eliquis. She denies taking aspirin, she denies taking NSAIDs, she states that she takes only Tylenol. [facility] Medical History Gait apraxia Arthritis of left knee Gait disturbance HTN (hypertension) Osteoarthritis IBS (irritable bowel syndrome) Major depression, recurrent, chronic Vitamin D deficiency Abnormal gait Pure hypercholesterolemia Severe major depression without psychotic features Hx of basal cell carcinoma Osteopenia Paroxysmal atrial fibrillation Surgical History History of esophagogastroduodenoscopy (EGD) Hx of colonoscopy Hx of breast biopsy Hx of hysterectomy Hx of appendectomy Family History Father No problems noted. Mother No problems noted. Social History Are you a primary managed care specialist to a significant other at home: No Do you presently have visiting nurse or other home services: Yes (SCIENTIFIC ASSOCIATE 4 hours per week) Comment: aware of trip hazard Patient Tobacco Use Status: Former Tobacco user Tobacco use type: Cigarette Advance Directives Date on File: 11/11/21 service: No Current occupational status: retired Current occupation: rt handed Review of Systems Const All systems reviewed & are unremarkable except as noted in HPI and below Physical Exam Vital Signs: BMI result Body Mass Index 29.2 Telehealth Telehealth Telehealth Platform: Telephone Location of provider rendering services: practice address Location of patient: address on file Patient Identification confirmed using: Name, : Yes Telehealth method: voice only Patient verbally consented to treatment: Yes Patient verbally consented to billing insurance company: Yes Patient informed of any privacy concerns related to visit: Yes Results Reviewed Results Reviewed: XR SHOULDER 2 OR MORE VIEWS RIGHT HISTORY: M25.511 - Pain in right shoulder COMPARISON: There are no prior studies available for comparison. FINDINGS: Five views of the right shoulder are submitted. Osseous mineralization is normal. There is no fracture or dislocation. There is severe osteoarthritis of the glenohumeral and acromioclavicular joints, with joint space narrowing and osteophyte formation. The soft tissues are unremarkable. IMPRESSION: Severe osteoarthritis of the right shoulder as described. Assessment & Plan Assessment & Plan (1) Right shoulder pain: Code(s): M25.511 - Pain in right shoulder Category: Medical (2) Primary osteoarthritis, right shoulder: Code(s): M19.011 - Primary osteoarthritis, right shoulder Category: Medical Plan Lucita is on the phone today to discuss her PRP injection and refill her medications to [facility] where she currently is located. We discussed PRP injection which is scheduled on March 13. I also send her medication to [facility] pharmacy see as below. Medications: Refilled tizanidine 2 mg PO TID PRN 90 tabs 1RF muscle spasticity 30 days Patient Instructions: I here by testify that I spent 15 minutes in conversation with this patient as well as planning her care and organizing this note. Coding Level of Care Code Tele Est Pt Level 3 (24908) Diagnoses Right shoulder pain M25.511 Primary osteoarthritis, right shoulder M19.011
== END 2025-01-02 12:01 | disposition home or self-care (01) ==
LOC: HO.PMC 11:53
PROVIDERS: Visit Provider Anesthesiology
DX: M25.511 Pain in right shoulder (principal); M19.011 Primary osteoarthritis, right shoulder
CPT/HCPCS: 99213

== ENCOUNTER → 2025-01-02 11:53 | Outpatient (BNVA) | payer MEDICARE, OTHER, SELFPAY | PROVIDERS: Visit Provider Anesthesiology ==

== ENCOUNTER 2025-02-11 06:05 | Outpatient (REF) | payer MEDICARE, OTHER, SELFPAY ==
--- OUTSIDE RECORDS SUMMARY | 2025-02-11 06:07 | XMS_ITS | Clinical Summary ---
Author Organization [address] Address [address] [place] [phone] Phone Care Team Providers Care Environmental Studies Department Chair Name Role Phone Luca Thibodeaux MD Primary [...] chronic (CMS/HCC V2 4) 12/23/2013 Overview (08/30/2024): [facility] admission 09/2016, 05/2017, [facility] Admission 08/2017 [...] lt breast UPPER GASTROINTESTINAL ENDOSCOPY 2013 PROCEDURE: MD UPPER GI ENDOSCOPY PERFORMED; COMMENT: normal UPPER GASTROINTESTINAL ENDOSCOPY 08/2001 PROCEDURE: MD UPPER GI ENDOSCOPY PERFORMED; COMMENT: WNL APPENDECTOMY 01/2020 PROCEDURE: HISTORICAL APPENDECTOMY; COMMENT: [facility] COLONOSCOPY 09/11/2020 PROCEDURE: HISTORICAL COLONOSCOPY; COMMENT: Minimal diverticulosis; 3 mm cecal polyp: Tubular adenoma. APPENDECTOMY PROCEDURE: MD APPENDECTOMY Medical History Medical History Date Comments Irritable bowel syndrome DX:Irri table bowel syndrome; COMMENT: EGD, Colonoscopy (-)08/06/01 Lumbosacral spondylosis with out myelopathy DX:Lumbosacral spondylosis w ithout myelopathy Generalized osteoarthrosis, involving hand DX:Generalized osteoarthrosi s, involving hand Dermatophytosis of foot DX:[place] tophytosis of foot Iron deficiency anemia secon [...] DX:Major depression, recurre nt, chronic (HCC); COMMENT: [facility] admission 09/2016, 05/2017, [facility] Admission 08/2017 [...] Health Maintenance Due Date Last Done Comments Falls Risk Assessment 08/13/2022 Social Influencers of Health Screening 08/13/2022 Medicare Annual Wellness Visit 04/21/2023 04/21/2022 COVID-19 Vaccine (7 - Pfizer risk 2023- season) 2024 06/11/2024, 06/20/2023, 06/01/2021, Additional history exists Depression Screening 08/22/2025 08/22/2024 RSV Immunization Adult Patients (1 - 1-dose 75+ series) 2025 Breast Cancer Screening 08/08/2026 08/08/20 24, 07/03/2021, 10/23/2019, Additional history exists Colorectal Cancer Screening: Colonoscopy 09/11/2027 09/11/2020 Cholesterol Screening (Lipid Panel) 09/15/2027 09/15/2022 Osteoporosis Screening (Bone Density Screening) 06/02/2031 06/02/2021 DTaP,Tdap,and Td Vaccines (5 - Td or Tdap) 04/21/2032 04/21/2022, 08/16/2017, 02/25/2003, Additional history exists Pneumococcal Vaccine: 50+ Years Completed 02/10/2018, 08/16/2017 Zoster Vaccines Completed 05/03/2022, 07/10/2021 Hepatitis C Screening Completed 06/08/2023, 023 Influenza Vaccine Completed 06/11/2024, , 08/22/2022, Additional [...] is recommended in 1 year. MAMMO LOCATION: [facility], [address] [place] [address], [id number], . -------- FINAL REPORT -------- Dictated By: Domitila Joshua Dictated Date: 08/09/2024 15:18 ET Assigned Physician: Domitila Joshua Reviewed and Electronically Signed By: Domitila Joshua Signed Date: 08/09/2024 15:19 ET Workstation ID: [id number] Transcribed By: Self Edit Transcribed Date: 08/09/2024 [...] is recommended in 1 year. MAMMO LOCATION: [facility], [address] [place] [address], [id number], . -------- FINAL REPORT -------- Dictated By: Domitila Joshua Dictated Date: 08/09/2024 15:18 ET Assigned Physician: Domitila Joshua Reviewed and Electronically Signed By: Domitila Joshua Signed Date: 08/09/2024 15:19 ET Workstation ID: [id number] Transcribed By: Self Edit Transcribed Date: 08/09/2024 [...] (World Health Organization Fracture Risk Assessment) [facility] Department of Internal Medicine recommends using National [...] (World Health Organization Fracture Risk Assessment) [facility] Department of Internal Medicine recommendsusing National Osteoporosis [...] Recently Relevant to Health Maintenance Insurance MEDICARE [facility] [address] [place] [address] Care Teams Environmental Studies Department Chair Relationship Specialty Start Date End Date Luca Thibodeaux MD [address] [place] [address] PCP - General Internal Medicine 01/10/22
== END 2025-02-11 06:06 | disposition home or self-care (01) ==
LOC: CF 06:05
PROVIDERS: Visit Provider Anesthesiology
DX: Z13.89 Encounter for screening for other disorder (principal)

== ENCOUNTER → 2025-02-14 08:44 | Outpatient (BNVA) | payer MEDICARE, OTHER, SELFPAY | PROVIDERS: PCP Nurse Practitioner Family | DX: Z01.818 Encounter for other preprocedural examination (principal) ==

== ENCOUNTER 2025-02-25 06:21 | Outpatient (REF) | payer MEDICARE, OTHER, SELFPAY ==
--- NOTE | ~2025-02-25 | FL_ITS ---
EXAMINATION: FL GUIDANCE ONLY HISTORY: M25.511 - Pain in right shoulder COMPARISON: Correlation is made with plain films of the right shoulder dated 12/16/2024. TECHNIQUE: Fluoroscopy time: 0.4 minutes. Cumulative Dose: 1.25 mGy. DAP: 0.0218 mGym2 Images: 1. FINDINGS: A single fluoroscopic spot film of the right shoulder demonstrates a needle in place and intra-articular contrast. FL/FL guidance in treatment room IMPRESSION: Fluoroscopy during procedure. Please see procedure report for additional information. Electronically signed by: Kartik Olivo MD 02/25/2025 12:22 PM EDT
== END 2025-02-25 06:22 | disposition home or self-care (01) ==
LOC: CF 06:21
PROVIDERS: Visit Provider Anesthesiology
DX: Z13.89 Encounter for screening for other disorder (principal)

== ENCOUNTER 2025-02-25 08:51 | Outpatient (AMB) | payer SELFPAY ==
--- NOTE | 2025-02-25 08:57 | A.OFFVIS_ITS ---
Vital Signs 02/25/25 09:02 02/25/25 10:23 BP 90/51 L 114/61 Blood Pressure Location Lt brachial Lt brachial Position Sitting Sitting Respiration 16 16 Pulse 70 72 Pulse Source Pulse Oximeter Pulse Oximeter Pulse Oximetry (%) 96 96 Oxygen Delivery Method Room Air Room Air Intake Visit Reasons: RIGHT SHOULDER PRP Allergies No Known Allergies (No Known Allergies*) Allergy (Verified 02/11/25 09:47) PFSH Medical History Gait apraxia Arthritis of left knee Gait disturbance HTN (hypertension) Osteoarthritis IBS (irritable bowel syndrome) Major depression, recurrent, chronic Vitamin D deficiency Abnormal gait Pure hypercholesterolemia Severe major depression without psychotic features Hx of basal cell carcinoma Osteopenia Paroxysmal atrial fibrillation Surgical History History of esophagogastroduodenoscopy (EGD) Hx of colonoscopy Hx of breast biopsy Hx of hysterectomy Hx of appendectomy Family History Father No problems noted. Mother No problems noted. Social History Are you a primary lawn care technician to a significant other at home: No Do you presently have visiting nurse or other home services: Yes (WEATHER STRIP INSTALLER 4 hours per week) Comment: aware of trip hazard Patient Tobacco Use Status: Former Tobacco user Tobacco use type: Cigarette Advance Directives Date on File: 11/11/21 service: No Current occupational status: retired Current occupation: rt handed Physical Exam Vital Signs: Last Vital Signs Pulse 72 02/25/25 10:23 Resp 16 02/25/25 10:23 BP 114/61 02/25/25 10:23 Pulse Ox 96 02/25/25 10:23 Oxygen Delivery Method Room Air 02/25/25 10:23 Assessment & Plan Assessment & Plan (1) Primary osteoarthritis, right shoulder: Code(s): M19.011 - Primary osteoarthritis, right shoulder Category: Medical (2) Right shoulder pain: Code(s): M25.511 - Pain in right shoulder Category: Medical Plan Platelet rich plasma injection shoulder. Lucita is very pleasant 74 years old female who presents today in my office with intention to receive intra-articular right shoulder glenohumeral joint platelet rich plasma injection. The patient was explained informed consent were risks and benefits were explained to the patient. The risks were delineated as bleeding, infection, peripheral nerve damage. Patient expressed understanding. Initially 60 cc of autologous blood was withdrawn from antecubital vein of the patient on the left. The blood was anticoagulated with sodium citrate. It was processed to receive platelet rich plasma approximately 7 cc. After that patient was taken to the operating room and positioned prone on the operating table. The right shoulder area was prepped with ChloraPrep and draped with sterile self adhesive utility towels. After that C-arm was brought over the ope rating field and image of the right glenohumeral joint was demonstrated on the screen. Severe advanced osteoarthritis of the glenohumeral joint was noted. Two attempts were made to reach the joint. Finally on the insertion of the joint on most superior medial portion of the joint injection of the contrast demonstrated arthrogram. After that PRP syringe was connected to need the needle and slowly injected into the joint. Upon completion of the injection the needle was withdrawn and Band-Aid was applied. Upon completion of the procedure patient was complaining on severe pain in his shoulder. She was given prescription of the oxycodone 5 mg q.6 hours for the next 3 days to help her with the pain. Medications: New oxycodone Partial Fill upon patient request. 5 mg PO Q6H PRN 12 tabs 0RF pain 3 days Coding Level of Care Code Procedure Only Diagnoses Primary osteoarthritis, right shoulder M19.011 Right shoulder pain M25.511
[2025-02-25 09:02] VITALS: BP 90/51; PULSE 70; RESP 16; O2SAT 96
[2025-02-25 10:23] VITALS: BP 114/61; PULSE 72; RESP 16; O2SAT 96
== END 2025-02-25 10:46 | disposition home or self-care (01) ==
LOC: HO.PMCPRC 08:51
PROVIDERS: PCP Nurse Practitioner Family; Visit Provider Anesthesiology
DX: M19.011 Primary osteoarthritis, right shoulder (principal); M25.511 Pain in right shoulder
CPT/HCPCS: 0232T

== ENCOUNTER 2025-03-26 13:11 | Outpatient (AMB) | payer MEDICARE, OTHER, SELFPAY ==
--- NOTE | 2025-03-26 13:34 | MHC.OFFVIS ---
Vital Signs 03/26/25 13:35 Weight 171 lb BP 113/59 L Blood Pressure Location Lt brachial Position Sitting Respiration 18 Pulse 81 Pulse Source Pulse Oximeter Pulse Oximetry (%) 98 Oxygen Delivery Method Room Air Intake Visit Reasons: S/P RIGHT SHOULDER PRP Lamps Tester And Inspector Required: No Allergies No Known Allergies (No Known Allergies*) Allergy (Verified 03/26/25 13:35) HPI Comments Details: Lucita is back in my office 1 month after the intra-articular glenohumeral joint PRP. She reports some mobility improvement and some pain alleviation with the injection. Because the action of the PRP is positive and the patient is experiencing certain improvement I suggested repeating the procedure. However patient tolerated last procedure PRP injection very poorly she experienced severe pain exacerbation after the injection. On the image her arthrogram demonstrates severely narrowed intra-articular space. I suggested that we can approach to this issue by 2 different ways. One way is to administer the patient 10 mg of oxycodone and 1 mg of Ativan 30 minutes of the procedure and then perform the injection, the patient is more interested in performing this procedure under deep sedation or general anesthesia. Unfortunately patient does not realize that in this case the anesthesia and operating room feet will be her responsibility. We will evaluate how much it will cost to the patient in addition to PRP fee and if she agrees with the pisano we will proceed with case in OR under deep sedation. She is suffering from severe osteoarthritis right shoulder with severe pain radiating to the arm and forearm. She received intra-articular right shoulder injection in March of 2024. She reported 6 months of the pain relief however she reported that recently she started to feel more and more severe pain in the right shoulder. She is concerned about osteoporosis and does not want to repeat the steroid injections. I offered the patient PRP injection. She agreed to go for the procedure. She is scheduled for this procedure in February 11. She went for the x-ray of the right shoulder and it demonstrated significant glenohumeral and acromioclavicular bkot-iz-bzaa arthritis. The patient was explained that she does not have much of the osteoporosis according to that x-ray. See the full report as below. Prior: very pleasant 73 years old female who presented today in my office after the therapeutic right intra-articular shoulder injection which was performed on 04/02/2024. She reports today that her pain in his shoulder started 1 year ago she relates her pain in his shoulder to arthritis. She reported that on x-ray she was told she has ?uomw-ay-twin ?arthritis. She had extensive physical therapy for her knee problems however she never had any physical therapy for her shoulder. She had intra-articular shoulder injection. Her past medical history significant for rate control atrial fibrillation she is on Eliquis. She denies taking aspirin, she denies taking NSAIDs, she states that she takes only Tylenol. [facility] Medical History Gait apraxia Arthritis of left knee Gait disturbance HTN (hypertension) Osteoarthritis IBS (irritable bowel syndrome) Major depression, recurrent, chronic Vitamin D deficiency Abnormal gait Pure hypercholesterolemia Severe major depression without psychotic features Hx of basal cell carcinoma Osteopenia Paroxysmal atrial fibrillation Surgical History History of esophagogastroduodenoscopy (EGD) Hx of colonoscopy Hx of breast biopsy Hx of hysterectomy Hx of appendectomy Family History Father No problems noted. Mother No problems noted. Social History Are you a primary care navigator to a significant other at home: No Do you presently have visiting nurse or other home services: Yes (PARTY PLAN SALES UNIT ADVISOR 4 hours per week) Comment: aware of trip hazard Patient Tobacco Use Status: Former Tobacco user Tobacco use type: Cigarette Advance Directives Date on File: 11/11/21 service: No Current occupational status: retired Current occupation: rt handed Review of Systems Const All systems reviewed & are unremarkable except as noted in HPI and below ENT Reports Normal hearing present Neuro Reports Normal hearing present, Denies Abnormal speech present, Denies confusion and Denies Sensory deficit (Neuro) Psych Denies confusion Physical Exam Vital Signs: Last Vital Signs Pulse 81 03/26/25 13:35 Resp 18 03/26/25 13:35 BP 113/59 L 03/26/25 13:35 Pulse Ox 98 03/26/25 13:35 Oxygen Delivery Method Room Air 03/26/25 13:35 Const General: no acute distress; No confusion Orientation/consciousness: patient oriented x3 and No confusion Eyes General: appearance normal, both eyes and all related structures Pupils: Equal, round and reactive pupils present EOM: EOMs intact bilaterally Neck Neck: Yes full ROM Chest Chest palpation & inspection: normal inspection of the chest Resp Effort & Inspection: normal respiratory effort, able to speak in complete sentences, normal respiratory pattern, no audible wheezes and no cough Cardio Jugular venous distension: no JVD GI Inspection: Yes normal to inspection Neuro General: patient oriented x3, gait normal and No confusion Cranial nerves: Yes CN's II-XII intact bilaterally, Yes Equal, round and reactive pupils present, Yes Normal hearing present and Yes Ability to bilaterally elevate shoulders present Speech: No Abnormal speech present Gait exam (Neuro): Normal gait present Motor exam (neuro): 5/5 motor strength present throughout Sensory Exam: No Sensory deficit (Neuro) Extrem Other: Limited range of motion of the right glenohumeral joint. Crepitus is sensed on palpation with movement of the joint. The temperature of the joint seem to be appropriate and there is no local temperature observed. General: No pedal edema Psych Speech and movement: Normal speech and movement present Affect: normal affect Attitude: cooperative Thought process: Normal thought process present Thought content: Normal thought content present Insight: Good insight present (Psych) Judgement: Good judgement present (Psych) Results Reviewed Results Reviewed: XR SHOULDER 2 OR MORE VIEWS RIGHT HISTORY: M25.511 - Pain in right shoulder COMPARISON: There are no prior studies available for comparison. FINDINGS: Five views of the right shoulder are submitted. Osseous mineralization is normal. There is no fracture or dislocation. There is severe osteoarthritis of the glenohumeral and acromioclavicular joints, with joint space narrowing and osteophyte formation. The soft tissues are unremarkable. IMPRESSION: Severe osteoarthritis of the right shoulder as described. Assessment & Plan Assessment & Plan (1) Right shoulder pain: Code(s): M25.511 - Pain in right shoulder Category: Medical (2) Primary osteoarthritis, right shoulder: Code(s): M19.011 - Primary osteoarthritis, right shoulder Category: Medical Plan Prolonged and detailed conversation was held today by about patient's options. The patient insists on going for the repeated PRP under deep sedation or general anesthesia. She does not realize that at this time if she goes under general anesthesia operating room free and anesthesiologist feel be her responsibility. We will obtain correct numbers from the operating room and from the anesthesia department's, we will provide those numbers to the patient, if she finds those numbers acceptable we proceed with the case in the operating room. Alternatively we can perform this procedure without sedation in the injection area with patient prescribed 1 mg of alprazolam and 10 mg of oxycodone, she will take those meds 30 minutes before the procedure, we will keep her under observation in the operating room for 1 hour after the procedure. Patient Instructions: I here by testify that I spent 30 minutes in conversation with this patient as well as planning her care, evaluating potential patient's options, organizing this note. Coding Level of Care Code Est Pt Level 4 (01173) Diagnoses Right shoulder pain M25.511 Primary osteoarthritis, right shoulder M19.011
[2025-03-26 13:35] VITALS: BP 113/59; PULSE 81; RESP 18; O2SAT 98
--- OUTSIDE RECORDS SUMMARY | 2025-03-26 13:35 | XMS_ITS | Patient Health Record ---
Author Organization [facility] Address [address] [place] [address] Care Team Providers Care Hydro Excavation Operator Name Role Phone Hilda KYLE, Nallely Primary Care Provider BETO Ortiz Unavailable [phone] Reason For Referral No Information Medications Medication [...] Status Risk Notes Problem Right shoulder pain (M25.511) Active confirmed Problem Left shoulder pain (7998819571) Left shoulder pain (M25.512) Active confirmed Problem [id number] Balance disorder (R26.89) Active confirmed Problem 566186940 Right anterior knee pain (M25.561) Active confirmed Problem [id number] Osteoarthritis o f carpometacarpal (CMC) joint of both thumbs (M18.0) Active confirmed Problem [id number] Arthritis of carpometacarpal (CMC) joint of both thumbs (M18.0) Active confirmed Plan Of Treatment Next Appt Details Provider Name:BETO LAM, 05/14/2025 03:00:00 PM, [address] [place] [address], [phone], Insurance Providers Payer Name Payer Address Payer Phone Subscriber Number Group Number Insured Name Patient Relationship to Insured Coverage Start Date Coverage End Date Medicare [address] [place] [id number] Lucita Young Self - patient is the insured [facility] [address] [facility] [address] [phone] [id number] Lucita Young Self - patient is the [...]
--- OUTSIDE RECORDS SUMMARY | 2025-03-26 13:35 | XMS_ITS | Clinical Summary ---
Author Organization [facility] Address [address] [place] [address] Phone Care Team Providers Care Mine Shifter Name Role Phone Caitlyn Swanson NP Primary Care Provider [phone] Allergies No known active allergies Medications * This document contains information received from the source organization and may not represent a complete record from that organization. prazosin (MINIPRESS) 2 MG capsule Take 2 mg by mouth nightly. Active pantoprazole (PROTONIX) 40 MG tablet Take 40 mg by mouth daily. Active gabapentin (NEURONTIN) 300 MG capsule Take 300 mg by mouth daily. Active clonazePAM (KLONOPIN) 2 MG tablet Take 2 mg by mouth 2 (two) times a day as needed. Active metoprolol succinate (TOPROL-XL) 50 MG 24 hr tablet Take 50 mg by mouth daily. Active dextroamphetami ne-amphetamine (ADDERALL) 15 mg Tab tablet Take 15 mg by mouth daily. Active hydrOXYzine (VISTARIL) 25 MG capsule Take 25 mg by mouth nightly as needed. Active ciclopirox (LOPROX) 0.77 % gelIndications: tinea pedis Apply topically daily. Indications: TINEA PEDIS Active venlafaxine (EFFEXOR-XR) 37.5 MG 24 hr capsule Take 2 capsules (75 mg total) by mouth daily with breakfast. 30 capsule 8 Active Active Problems Problem Noted Date Diagnosed Date Severe major depression without psychotic featur es 02/09/2018 Immunizations Immunization Administration Dates Next Due Pneumococcal conjugate PCV13 02/10/2018 Social History Tobacco Use Types Packs/Day Years Used Date Smoking Tobacco: Never Smokeless Tobacco: Never Alcohol Use Standard Drinks/Week Comments Not Asked 0 (1 standard drink = 0.6 oz pur e alcohol) Education Answer Date Recorded Are you interested in more education? Not on rody e 12/30/2022 Are you concerned about learning? Not on file 12/30/2022 No 12/30/2022 No 12/30/2022 Digital Access Answer Date Recorded No 01/28/2023 No 01/28/2023 No 01/28/2023 Reliable internet access at home? Not on file 01/28/2023 Device with a working camera? Not on file Comments Unknown Sex and Gender Information Value Date Recorded Sex Assigned at Female 09/11/2017 9:38 AM EST Legal Sex Female 12:08 PM EST Gender Identity Female 09/11/2017 9:38 AM EST Sexual Orientation Straight 09/11/2017 9: 38 AM EST Last Filed Vital Signs Vital Sign Reading Time Taken Comments Blood Pressure 130/61 02/14/2018 9:00 AM EDT Pulse 100 02/14/2018 9:00 AM EDT Temperature 36.8 C (98.2 F) 02/14/2018 9:00 AM EDT Respiratory Rate 18 02/09/2018 11:0 0 PM EDT Oxygen Saturation 93% 02/14/2018 9:00 AM EDT Inhaled Oxygen Concentration - - Weight 102.5 kg (225 lb 14.4 oz) 2017 11:00 PM EDT Height 170.2 cm (5' 7 ) 02/09/2018 11:0 0 PM EDT Body Mass Index 35.38 02/09/2018 11:00 PM EDT Plan of Treatment Upcoming Encounters Date Type Department Care Team (Late st Contact Info) Description 02/25/2026 10:10 AM EDT Office Visit [facility] Rheumatology [address] [place] [address] Brianne Curtis MD, MPH [address] [facility], [facility] [address] [place] [address] [email or web address] Health Maintenance Due Date Last Done Comments LIPID PANEL 1950 DEPRESSION SCREENING 1962 HEPATITIS C SCREENING 1968 MAMMOGRAM 1990 COLOGUARD 11/30/1995 COLONOSCOPY 11/30/1995 COLORECTAL CANCER SCREENING 11/30/1995 FIT TEST 11/30/1995 FOBT 11/30/1995 SIGMOIDOSCOPY 11/30/1995 VIRTUAL COLONOSCOPY 11/30/1995 ZOSTER VACCINES (1 of 2) 2000 OSTEOPOROSIS SCREENING INITI AL (ONE-TIME) 11/30/2015 COVID-19 VACCINE (2 - 2023-2 5 season) 2024 11/19/2020 RSV VACCINE (1 - 1-dose 75+ series) 2025 Adult Td,Tdap Booster 08/16/2027 08/16/2017 , 02/25/2003 SMOKING STATUS SCREENING (On ce After 26 Yrs) Completed 02/09/2018 PNEUMOCOCCAL VACCINES (50+ years) Completed 02/10/2018, 08/16/2017 HEPATITIS A VACCINES Aged Out No long er eligible based on patient's age to complete this topic HIB VACCINES Aged Out No longer eligi ble based on patient's age to complete this topic MENINGOCOCCAL VACCINES (ACWY) Aged Out No longer eligible based on patient's age to complete this topic MENINGOCOCCAL VACCINES (B) Aged Out N o longer eligible based on patient's age to complete this topic Medical Devices Not on file Insurance [address] [place], [place] [address]O MEDICARE PART [facility] & [facility]IC[facility] & B [facility] Address: [place] [address] MED[facility]ARE PART A & B [facility] MEDICARE PART A & [facility] [place] [address] MEDICARE PART A & [facility] Address: [address] [address] MEDICARE PART A & [facility] Address: [place] [address] MEDICARE PART A & B [facility] H[facility] MEDIC[place] [id number] Advance Directives For more information, please contact: [phone] (9AM - 5PM [facility], Monday-Monday) * Full Code (Presumed) (Latest Code Status on File) Date Activated Date Inactivated Comments 02/09/2018 11:50 PM 02/14/2018 1:55 PM Care Teams Mine Shifter Relationship Specialty Start Date End Date Caitlyn Swanson NP [address] [place] [address] PCP - General Nurse Practitioner 12/19/24 Additional Source Comments The information contained in this document represents components of the legal health record. It is not the complete legal health record.[facility]
--- OUTSIDE RECORDS SUMMARY | 2025-03-26 13:35 | XMS_ITS | Encounter Summary ---
Author Organization [facility] Address [address] [place] [address] Care Team Providers Care Securities Consultant Name Role Phone Ena Egan MD Primary Care Provider Travis Rg MD Primary Care Provider Sally Kim MD Primary Care Provider Luca Bolanos Primary Care Provider [phone] [facility], Pcp Primary Care Provider Christy weiss Encounter Details Date Type Department Care Team Description 08/30/2017 Release of Information Medical Records [address] [place] [id number] Abstract, Provider Social History Tobacco Use Types [...] PM EST AUTHORIZATION TO OBTAIN RECORDS TO [facility] documented in this encounter Plan of Treatment Not on file documented as of this encounter Visit Diagnoses Not on filedocumented in this encounter Care Teams Securities Consultant Relationship Specialty Start Date End Date Ena Egan MD PCP - General Internal Medicine 08/03/11 02/17/21 Travis Hansen MD PCP - General Internal Medicine 02/18/21 06/06/21 Sally Stewart MD PCP - General Internal Medicine 06/07/21 01/09/22 Luca Thibodeaux [address] [place] [address] [id number] PCP - General Internal Medicine 01/10/22 04/23/23 [facility], [address] [address] PCP - General Internal Medicine 04/24/23 documented as of this encounter
--- OUTSIDE RECORDS SUMMARY | 2025-03-26 13:35 | XMS_ITS | Clinical Summary ---
Author Organization [address] Address [address] [place] [phone] Phone Care Team Providers Care Ladies' Locker Room Attendant Name Role Phone Luca Thibodeaux MD Primary [...] chronic (CMS/HCC V2 4) 12/23/2013 Overview (08/30/2024): [facility] admission 09/2016, 05/2017, [facility] Admission 08/2017 [...] lt breast UPPER GASTROINTESTINAL ENDOSCOPY 2013 PROCEDURE: [place] UPPER GI ENDOSCOPY PERFORMED; COMMENT: normal UPPER GASTROINTESTINAL ENDOSCOPY 08/2001 PROCEDURE: [place] UPPER GI ENDOSCOPY PERFORMED; COMMENT: WNL APPENDECTOMY 01/2020 PROCEDURE: HISTORICAL APPENDECTOMY; COMMENT: [facility] COLONOSCOPY 09/11/2020 PROCEDURE: HISTORICAL COLONOSCOPY; COMMENT: Minimal diverticulosis; 3 mm cecal polyp: Tubular adenoma. APPENDECTOMY PROCEDURE: [place] APPENDECTOMY Medical History Medical History Date Comments Irritable bowel syndrome DX:Irri table bowel syndrome; COMMENT: EGD, Colonoscopy (-)08/06/01 Lumbosacral spondylosis with out myelopathy DX:Lumbosacral spondylosis w ithout myelopathy Generalized osteoarthrosis, involving hand DX:Generalized osteoarthrosi s, involving hand Dermatophytosis of foot DX:[place] tophytosis of foot Iron deficiency anemia secon [...] DX:Major depression, recurre nt, chronic (HCC); COMMENT: [facility] admission 09/2016, 05/2017, [facility] Admission 08/2017 [...] Annual Wellness Visit 04/21/2023 04/21/2022 Depression Screening 09/04/2024 COVID-19 Vaccine (7 - Pfizer risk season) 2024 06/11/2024, 06/20/2023, 06/01/2021, Additional history exists Influenza Vaccine (#1) 2025 , 06/20/2023, 08/22/2022, Additional history exists RSV Immunization Adult Patients (1 - 1-dose 75+ series) 2025 Breast Cancer Screening 08/08/2026 08/08/20, 07/03/2021, 10/23/2019, Additional history exists Colorectal Cancer Screening: Colonoscopy 09/11/2027 09/11/2020 Cholesterol Screening (Lipid Panel) 09/15/2027 09/15/2022 Osteoporosis Screening (Bone Density Screening) 06/02/2031 06/02/2021 DTaP,Tdap,and Td Vaccines (5 - Td or Tdap) 04/21/2032 04/21/2022, 08/16/2017, 02/25/2003, Additional history exists Pneumococcal Vaccine: 50+ Years Completed 02/10/2018, 08/16/2017 Zoster Vaccines Completed 05/03/2022, 07/10/2021 Hepatitis C Screening Completed 06/08/2023, 023 HIB Vaccines Aged Out No longer eligi [...] is recommended in 1 year. MAMMO LOCATION: [facility], [address] [place] [address], [id number], . -------- FINAL REPORT -------- Dictated By: Domitila Joshua Dictated Date: 08/09/2024 15:18 ET Assigned Physician: Domitila Joshua Reviewed and Electronically Signed By: Domitila Joshua Signed Date: 08/09/2024 15:19 ET Workstation ID: [id number] Transcribed By: Self Edit Transcribed Date: 08/09/2024 [...] is recommended in 1 year. MAMMO LOCATION: [facility], [address] [place] [address], [address], . 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 Left Hip T-score is -2.2 Z-score is -0.4 This is consistent with osteopenia by criteria defined by the WHO. Comparison exam(s): significant increase in bone density of lumbar spine when compared to most recent bone density examination Confidence level is +/-95%. Impression: Based on the World Health Organization criteria, Lucita Parekh should be classified as having osteopenia. This patient has a 17% risk of major osteoporotic fracture and a 3.2% risk of hip fracture over the next 10 years. (World Health Organization Fracture Risk Assessment) [facility] Department of Internal Medicine recommends using [...] (World Health Organization Fracture Risk Assessment) [facility] Department of Internal Medicine recommendsusing National [...] or over-estimation of fracture risk by FRAX. us Ena Egan MD IMG DXA PROCEDURES Final Res ult * Colonoscopy (09/11/2020) HM Colonoscopy No interpretation , Abstracted Anatomical Region Laterality Modality Other Historical Provider HEALTH MAINTENANCE Final Result from Last 3 Months or Most Recently Relevant to Health Maintenance Insurance MEDICARE [facility] Care Teams Ladies' Locker Room Attendant Relationship Specialty Start Date End Date Luca Thibodeaux MD [address] [place] [address] PCP - General Internal Medicine 01/10/22
--- OUTSIDE RECORDS SUMMARY | 2025-03-26 13:36 | XMS_ITS ---
Author Name [facility] Organization Unknown Care Team Organization Name Specialty Phone Email Start Date End Da te [facility] Deirdre Primary Care 02/10/2023 04/22/2024 [facility] Termed, PROVIDER Primary Care 11/09/202204/04 [facility] Susan Hi Primary Care 07/12/20222023
== END 2025-03-26 13:55 | disposition home or self-care (01) ==
LOC: HO.PMC 13:11
PROVIDERS: PCP Nurse Practitioner Family; Visit Provider Anesthesiology
DX: M25.511 Pain in right shoulder (principal); M19.011 Primary osteoarthritis, right shoulder
CPT/HCPCS: 99214

== ENCOUNTER → 2025-03-26 13:11 | Outpatient (BNVA) | payer MEDICARE, OTHER, SELFPAY | PROVIDERS: PCP Nurse Practitioner Family; Visit Provider Anesthesiology | DX: M25.511 Pain in right shoulder (principal); M19.011 Primary osteoarthritis, right shoulder; Z79.899 Other long term (current) drug therapy | CPT/HCPCS: 99212 ==

== ENCOUNTER 2025-03-31 13:21 | Outpatient (REF) | payer MEDICARE, OTHER, SELFPAY ==
--- NOTE | ~2025-03-31 | XR_ITS ---
EXAMINATION: XR HAND 3 OR MORE VIEWS RIGHT HISTORY: M79.641 - Pain in right hand COMPARISON: There are no prior studies available for comparison. FINDINGS: Three views of the right hand are submitted. Bones are osteopenic. There is no fracture or dislocation. There is severe degenerative change at the radial aspect of the carpus. There is mild osteoarthritis of the DIP joints. There is chondrocalcinosis. XR/XR hand RT min 3V IMPRESSION: Osteopenia. Osteoarthritis of the right hand as described. Electronically signed by: Kartik Olivo MD 03/31/2025 01:59 PM EDT
--- OUTSIDE RECORDS SUMMARY | 2025-03-31 14:07 | XMS_ITS | Encounter Summary ---
Author Organization [facility] Address [address] [place] [address] Care Team Providers Care Drafting Technician Name Role Phone Ena Egan MD Primary Care Provider Travis Rg MD Primary Care Provider Unavail Sally Jasmine MD Primary Care Provider Luca Bolanos Primary Care Provider [phone] [facility], Pcp Primary Care Provider Christy weiss Encounter Details Date Type Department Care Team Description 01/08/2014 Release of Information Medical Records [address] [place] [id number] Abstract, Provider Social History Tobacco Use Types [...] on filedocumented in this encounter Care Teams Drafting Technician Relationship Specialty Start Date End Date Ena Egan MD PCP - General Internal Medicine 08/03/11 02/17/21 Travis Hansen MD PCP - General Internal Medicine 02/18/21 06/06/21 Sally Stewart MD PCP - General Internal Medicine 06/07/21 01/09/22 Luca Thibodeaux [address] [place] [id number] PCP - General Internal Medicine 01/10/22 04/23/23 [facility], Pcp [address] [place] [id number] PCP - General Internal Medicine 04/24/23 documented as of this encounter
== END 2025-03-31 13:22 | disposition home or self-care (01) ==
LOC: HO.HOSX 13:21
PROVIDERS: PCP Nurse Practitioner Family
DX: R20.0 Anesthesia of skin (principal); M19.041 Primary osteoarthritis, right hand; R20.2 Paresthesia of skin; M79.641 Pain in right hand
CPT/HCPCS: 73130; 99212

== ENCOUNTER 2025-03-31 13:21 | Outpatient (AMB) | payer MEDICARE, OTHER, SELFPAY ==
--- NOTE | 2025-03-31 13:26 | A.OFFVIS_ITS ---
Vital Signs 03/31/25 13:35 Height 5 ft 6 in Weight 181 lb BMI 29.2 Intake Visit Reasons: Newprob-Right hand pain Intake Note: Lucita is a 74 year old right hand dominant woman who presents today for a new problem visit for evaluation of right hand pain that began about a year ago. Patient reports pain WAS like a bolt of lighting that spread through the volar and dorsal aspect of the hand. She states she had a right shoulder injection and her pain has improved since then. She now has a new onset of numbness and tingling from the wrist down to her fingertips, bilaterally, that occurs some days, at random times. She tried wearing a wrist brace once. Patient does not recall having an EMG done, ever. Reports history of bilateral wrist fractures and some left thumb fractures. Denies recent injuries. Allergies No Known Allergies (No Known Allergies*) Allergy (Verified 03/31/25 13:36) HPI HPI Newprob-Right hand pain: Details: Lucita is a 74 year old right hand dominant woman who presents today for a new problem visit for evaluation of right hand pain that began about a year ago. Patient reports pain WAS like a bolt of lighting that spread through the volar and dorsal aspect of the hand. She states she had a right shoulder injection and her pain has improved since then. She now has a new onset of numbness and tingling from the wrist down to her fingertips, bilaterally, that occurs some days, at random times. She tried wearing a wrist brace once. Patient does not recall having an EMG done, ever. Reports history of bilateral wrist fractures and some left thumb fractures. Denies recent injuries. [facility] Medical History Gait apraxia Arthritis of left knee Gait disturbance HTN (hypertension) Osteoarthritis IBS (irritable bowel syndrome) Major depression, recurrent, chronic Vitamin D deficiency Abnormal gait Pure hypercholesterolemia Severe major depression without psychotic features Hx of basal cell carcinoma Osteopenia Paroxysmal atrial fibrillation Surgical History History of esophagogastroduodenoscopy (EGD) Hx of colonoscopy Hx of breast biopsy Hx of hysterectomy Hx of appendectomy Family History Father No problems noted. Mother No problems noted. Social History Are you a primary child care assistant to a significant other at home: No Do you presently have visiting nurse or other home services: Yes (ASSISTANT CONTROLLER 4 hours per week) Comment: aware of trip hazard Patient Tobacco Use Status: Former Tobacco user Tobacco use type: Cigarette Advance Directives Date on File: 11/11/21 service: No Current occupational status: retired Current occupation: rt handed Review of Systems Const All systems reviewed & are unremarkable except as noted in HPI and below Physical Exam Vital Signs: BMI result Body Mass Index 29.2 Extrem Other: Neuro: Normal sensation of the tips of all digits of bilateral hands in the office today No thenar or intrinsic wasting. Good APB muscle firing and good finger cross. Vascular: Capillary refill brisk. ROM: Patient can make a fist and extend all their digits. Skin: No lacerations or abrasions noted. General: No ecchymosis. No erythema or evidence of infection. Results Reviewed Results Reviewed: X-rays obtained in the office today and independently reviewed by me, Loc sweet PA-C, demonstrate diffuse arthritic changes throughout the right hand. Assessment & Plan Assessment & Plan (1) Numbness and tingling in both hands: Code(s): R20.0 - Anesthesia of skin; R20.2 - Paresthesia of skin Category: Medical Plan 1. Numbness, tingling, pain of bilateral hands Symptoms intermittent, not necessarily daily, worse at night Patient is educated about this condition Patient is educated about the typical treatment course At this time, patient is referred for EMG and nerve conduction study to assess the health of the nerves of bilateral upper extremities Patient will follow-up after EMG and nerve conduction study for results review and discussion of further treatment options if indicated Patient is amenable to this plan Orders: Orders XR hand RT min 3V Today M79.641 - Pain in right hand NE electromyogram (EMG) Today R20.0 - Anesthesia of skin, R20.2 - Paresthesia of skin NE nerve conduction velocity Today R20.0 - Anesthesia of skin, R20.2 - Paresthesia of skin Coding Level of Care Code Est Pt Level 3 (67892) Diagnoses Numbness and tingling in both hands R20.0; R20.2
[2025-03-31 13:35] VITALS: BMI 29.2
--- OUTSIDE RECORDS SUMMARY | 2025-03-31 14:04 | XMS_ITS | Patient Health Record ---
Author Organization [facility] Address [address] [place] [address] Care Team Providers Care Hris Administrator Name Role Phone Hilda KYLE, Nallely Primary Care Provider BETO Ortiz Unavailable [phone] Reason For Referral No Information Medications Medication [...] (M25.511) Active confirmed Problem Left shoulder pain (9890146511) Left shoulder pain (M25.512) Active confirmed Problem 634244200 Balance disorder (R26.89) Active confirmed Problem 728187114 Right anterior knee pain (M25.561) Active confirmed Problem 076624909195303 Osteoarthritis o f carpometacarpal (CMC) joint of both thumbs (M18.0) Active confirmed Problem 3456492628741833 Arthritis of carpometacarpal (CMC) joint of both thumbs (M18.0) Active confirmed Plan Of Treatment Next Appt Details Provider Name:BETO LAM, 05/14/2025 03:00:00 PM, [address] [place] [address], [phone], Insurance Providers Payer Name Payer Address Payer Phone Subscriber Number Group Number Insured Name Patient Relationship to Insured Coverage Start Date Coverage End Date Medicare [address] [place] [id number] Lucita Young Self - patient is the insured [facility] [address] [facility] [address] [phone] [id number] Lucita Young Self - patient is the [...]
--- OUTSIDE RECORDS SUMMARY | 2025-03-31 14:04 | XMS_ITS | Clinical Summary ---
Author Organization [address] Address [address] [place] [phone] Phone Care Team Providers Care Complaint Supervisor Name Role Phone Luca Thibodeaux MD Primary [...] chronic (CMS/HCC V2 4) 12/23/2013 Overview (08/30/2024): [facility] admission 09/2016, 05/2017, [facility] Admission 08/2017 [...] WNL APPENDECTOMY 01/2020 PROCEDURE: HISTORICAL APPENDECTOMY; COMMENT: [facility] COLONOSCOPY 09/11/2020 PROCEDURE: HISTORICAL COLONOSCOPY; COMMENT: Minimal diverticulosis; 3 mm cecal polyp: Tubular adenoma. APPENDECTOMY PROCEDURE: [place] APPENDECTOMY Medical History Medical History Date Comments Irritable bowel syndrome DX:Irri table bowel syndrome; COMMENT: EGD, Colonoscopy (-)08/06/01 Lumbosacral spondylosis with out myelopathy DX:Lumbosacral spondylosis w ithout myelopathy Generalized osteoarthrosis, involving hand DX:Generalized osteoarthrosi s, involving hand Dermatophytosis of foot DX:[place] tophytosis of foot Iron deficiency anemia secon [...] DX:Major depression, recurre nt, chronic (HCC); COMMENT: [facility] admission 09/2016, 05/2017, [facility] Admission 08/2017 [...] is recommended in 1 year. MAMMO LOCATION: [facility], [address] [place] [address], [address], . -------- FINAL REPORT -------- Dictated By: Domitila Joshua Dictated Date: 08/09/2024 15:18 ET Assigned Physician: Domitila Joshua Reviewed and Electronically Signed By: Domitila Joshua Signed Date: 08/09/2024 15:19 ET Workstation ID: [id number] Transcribed By: Self Edit Transcribed Date: 08/09/2024 [...] is recommended in 1 year. MAMMO LOCATION: [facility], [address] [place] [address], [address], . 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 IMG BI PROCEDURES Final Result * Hepatitis [...] (World Health Organization Fracture Risk Assessment) [facility] Department of Internal Medicine recommends using [...] (World Health Organization Fracture Risk Assessment) [facility] Department of Internal Medicine recommendsusing National [...] Recently Relevant to Health Maintenance Insurance MEDICARE [facility] Care Teams Complaint Supervisor Relationship Specialty Start Date End Date Luca Thibodeaux MD [address] [place] [address] PCP - General Internal Medicine 01/10/22
--- OUTSIDE RECORDS SUMMARY | 2025-03-31 14:04 | XMS_ITS | Clinical Summary ---
Author Organization [facility] Address [address] [place] [address] Care Team Providers Care Rag Room Supervisor Name Role Phone Rosalva Reyes MD Primary Care Provider Source Comments PLEASE NOTE, [...] by mouth 3 (three) times daily Active melatonin 3 mg tabletIndications: Adjustment insomnia Take 1 Tablet by mouth nightly at bedtime as needed for sleep 90 Tablet 4 08/23/20 24 Active solifenacin (VESICARE) 10 mg tablet TAKE 1 TABLET BY MOUTH ONCE A DAY 90 Tablet 4 08/23/20 24 Active venlafaxine XR (EFFEXOR XR) 150 mg 24 hr capsuleIndications :Major depression, recurrent, chronic ([facility] V24) Take 1 Capsule by mouth once daily with breakfast 90 Capsule 1 09/17/19 25 Active apixaban (ELIQUIS) 5 mg tabIndications:Chr onic atrial fibrillation (CMS & [facility]) Take 1 Tablet by mouth 2 (two) times a day 180 Tablet 4 09/19/19 25 Active busPIRone (BUSPAR) 7.5 mg tabletIndications: Situational anxiety Take 1 Tablet by mouth 3 (three) times daily 90 Tablet 1 10/05/19 25 Active Additional Information Patient not taking.Reported on 01/03/2025 pantoprazole (PROTONIX) 40 mg EC tabletIndications: Gastroesophageal reflux disease without esophagitis Take 1 Tablet by mouth daily 90 Tablet 3 01/04/20 25 026 Active prazosin (MINIPRESS) 5 mg capsuleIndications :Major depression, recurrent, chronic ([facility] V24) Take 1 Capsule by mouth nightly at bedtime. 90 Capsule 3 01/29/20 25 Active metoprolol succinate XL (TOPROL-XL) 50 mg 24 hr tabletIndications: Chronic atrial fibrillation ([facility]) Take 1 Tablet by mouth nightly at bedtime. 90 Tablet 4 02/01/20 25 Active dextroamphetamine- amphetamine (ADDERALL XR) 10 mg 24 hr capsuleIndications :Attention deficit hyperactivity disorder (ADHD), predominantly inattentive type TAKE 1 CAPSULE BY MOUTH ONCE A DAY IN THE MORNING. 90 Capsule 02/05/20 25 Active atorvastatin (LIPITOR) 20 mg tabletIndications: Mixed hyperlipidemia Take 1 Tablet by mouth once daily. 90 Tablet 4 03/05/20 25 Active clonazePAM (KLONOPIN) 1 mg tabletIndications: Major depression, recurrent, chronic ([facility] V24) Take 1 Tablet by mouth nightly at bedtime for 28 days. 28 Tablet 03/12/20 25 025 Active gabapentin (NEURONTIN) 300 mg capsuleIndications :Anxiety,Spinal stenosis of lumbar region, unspecified whether neurogenic claudication present Take 1 Capsule by mouth nightly at bedtime. 90 Capsule 03/17/20 25 Active atorvastatin (LIPITOR) 20 mg tabletIndications: Mixed hyperlipidemia Take 1 Tablet by mouth once daily 90 Tablet 4 09/18/19 25 025 Discontin ued(Reord er (E-Cancel Not Sent)) gabapentin (NEURONTIN) 300 mg capsuleIndications :Anxiety,Spinal stenosis of lumbar region, unspecified whether neurogenic claudication present Take 1 Capsule by mouth nightly at bedtime 90 Capsule 12/18/19 25 025 Discontin ued(Reord er (E-Cancel Not Sent)) clonazePAM (KLONOPIN) 1 mg tabletIndications: Major depression, recurrent, chronic ([facility] V24) Take 1 Tablet by mouth nightly at bedtime for 28 days. 28 Tablet 02/14/20 25 025 Discontin ued(Reord er (E-Cancel Not [...] back to higher dose Chronic atrial fibrillation ([facility]) 08/04 Fractures 02/09/2022 Overview (07/01/2022): Per ot: Fractures of ribs 3 and 4 (left side), Fractures of both wrists and left thumb Osteopenia 06/04/2021 Renal cyst, right 04/25/2019 History of basal cell carcinoma 06/13/2018 Overview (06/11/2024): BCC 06/21 left arm (superficial) Sees annually DR Jaguar Cardona Ma 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 ([facility]) 02/09/2018 Overview (09/19/2024): 06/11/2024 PHQ-9 Total Score [...] Date Resolved Date Major depression, recurrent, chronic (CMS-HCC V24) 12/23/2013 06/08/2023 Overview (07/01/2022): [facility] admission 09/2016, 05/2017, [facility] Admission 08/2017 - intentional overdose hx x2 , ECT therapy 05/2017, outside psychiatric care Dr Barry Encounters Date Type Department Care Team Description 01/03/2025 11:00 AM EDT Office Visit [facility] [address] [place] [id number] Tobias Zayas PA-C from Last 3 Months Immunizations Immunization Administration Dates Next Due Flu, Adjuvant, 65y+ (Fluad) 11/05/2020 Flu, Cell Culture based, Mul ti Dose, 6m+, Flucelvax 08/16/2017 Flu, High Dose, 65y+, Fluzon e High Dose 06/20/2023 Influenza (FLUZONE), high-do se, trivalent, PF 06/11/2024,08/22/2022,07/06/2021,05/11 PFIZER COVID VACCINE, PURPLE CAP, 12+ 05/30/2021 PNEUMOCOCCAL CONJUGATE PCV 13 02/10/2018 PNEUMOCOCCAL POLYSACCHARIDE PPV23 (Pneumovax 23) 08/16/2017 Pfizer COVID-19 (Comirnaty), Mrna, Lnp-s, Pf, Hitesh-sucrose, 30 Mcg/0.3 Ml, 12yr+ 06/11/2024,06/20/2023 TDAP 04/21/2022,02/25/2003 Td (adult) unspecified 02/25/2003 Td (adult),2 Lf tetanus toxo id (TDVAX), preservative free 08/16/2017 ZOSTER VACCINE, RECOMBINANT (SHINGRIX) ,07/10/2021 [...] 0 07/01/2022 Food Insecurity Answer Date Recorded Within the past 12 months, y ou worried that your food would run out before you got money to buy more. 1 09/19/2024 Transportation Needs Answer Date Record ed In the past 12 months, has l ack of transportation kept you from medical appointments, meetings, work or from getting things needed for daily living? 1 09/19/2024 Housing Stability Answer Date Recorded [...] Sign Reading Time Taken Comments Blood Pressure 124/79 01/03/2025 10:46 AM EDT Pulse 69 01/03/2025 10:46 AM EDT Temperature 36.6 C (97.9 F) 01/03/2025 10:46 AM EDT Respiratory Rate 16 01/03/2025 10:46 AM EDT Oxygen Saturation 97% 01/03/2025 10:46 AM EDT Inhaled Oxygen Concentration - - Weight 81.6 [...] 08/22/2024 , 06/11/2024, 05/09/2024, Additional history exists Lgp-YSFGA-15 ( season) 2024 06/11/2024, 06/20/2023, 05/30/2021, Additional history exists Imm-Influenza (#1) 2025 06/11/2024, 1 , 08/22/2022, Additional history exists Tobacco Screening 06/11/2025 06/11/2024 Lipid Screening 09/19/2025 09/19/2024, 09/15/2022 Hypertension Screening (#1) 01/03/2026 Breast Cancer Screening (Mammogram) 08/08/2026 08/08/2024 Imm-DTaP/Tdap/Td (5 - Td or Tdap) 04/21/2032 04/21/2022, 08/16/2017, 02/25/2003, Additional history exists Imm-Pneumococcal 50+ Completed 02/10/2018, 08/16/20 Imm-Zoster, Recombinant Completed 05/03/2022, 07/10 Hepatitis C Screening Completed 06/08/2023 Procedures Procedure Name Priority Date/Time Associated Diagnosis Comments ECG ROUTINE ECG W/LEAST 12 LDS W/I&R Routine 01/03/2025 10:53 AM EDT SOB (shortness of breath) LIPID PANEL Routine 09/19/2024 2:00 PM EST Mixed hyperlipidemia ACUTE HEPATITIS PANEL W/RFLX Routine 06/08/2023 1:29 PM EDT Screening for venereal disease from Last 3 Months or Most Recently Relevant to Health Maintenance Results * ECG ROUTINE ECG W/ AT LEAST 12 LDS W/I&R (01/03/2025 10:53 AM EDT) Tobias Zayas PA-C ECG Final Result * LIPID PANEL (09/19/2024 2:00 PM EST) CHOLESTEROL, TOTAL 161 <200 mg/dL 09/20/2024 4:30 AM EST [facility] HDL CHOLESTEROL 62 > OR = 50 mg/dL 09/20/2024 4:30 AM EST [facility] TRIGLYCERIDES 70 <150 mg/dL 09/20/2024 4:30 AM EST [facility] LDL-CHOLESTEROL 84 mg/dL (calc) 09/20/2024 4:30 AM EST [facility] CHOL/HDLC RATIO 2.6 <5.0 (calc) 09/20/2024 4:30 AM EST [facility] NON-HDL CHOLESTEROL 99 <130 mg/dL (calc) 09/20/2024 4:30 AM EST [facility] Blood Blood / Unknown 09/19/2024 2 :00 PM EST 09/20/2024 2:42 AM EST Narrative [facility] - 09/20/2024 4:33 AM EST FASTING:YES Reference range: <100 . Desirable range <100 mg/dL for primary prevention; <70 mg/dL for patients with CHD or diabetic patients with > or = 2 CHD risk factors. . LDL-C is now calculated using the Rebecca calculation, which is a validated novel method providing better accuracy than the Friedewald equation in the estimation of LDL-C. Ata GATES et al. ELEUTERIO. 2013;310(19): 2078-7115 (http://education.Element Designs/faq/BNA420) For patients with diabetes plus 1 major ASCVD risk factor, treating to a non-HDL-C goal of <100 mg/dL (LDL-C of <70 mg/dL) is considered a therapeutic option. [facility] - BLOOD DRAW Final Resul t [facility] [address] [address], [facility] [address] [address] * ACUTE HEPATITIS PANEL W/RFLX (06/08/2023 1:29 PM EDT) HEPATITIS A IGM ANTIBODY NON-REACT JCARLOS NON-REACT JCARLOS 06/09/2023 3:07 AM EDT [facility] HEPATITIS B SURFACE ANTIGEN NON-REACT JCARLOS NON-REACT JCARLOS 06/09/2023 3:07 AM EDT [facility] HEPATITIS B CORE IGM ANTIBODY NON-REACT JCARLOS NON-REACT JCARLOS 06/09/2023 3:07 AM EDT [facility] HEPATITIS C ANTIBODY NON-REACT JCARLOS NON-REACT JCARLOS 06/09/2023 3:07 AM EDT [facility] Blood Blood / Unknown 06/08/2023 1 :29 PM EDT 06/09/2023 1:31 AM EDT Narrative [facility] - 06/09/2023 4:41 AM EDT FASTING:UNKNOWN . HCV antibody was non-reactive. There is no laboratory evidence of HCV infection. . In most cases, no further action is required. However, if recent HCV exposure is suspected, a test for HCV RNA (test code 76358) is suggested. . For additional information please refer to http://education.Xtium/faq/CVE80p0 (This link is being provided for informational/ educational purposes only.) . . For additional information, please refer to http://EndoShape.Spottly.SNUPI Technologies/faq/XGR046 (This link is being provided for informational/ educational purposes only.) . [facility] - BLOOD DRAW Final Resul t [employer] [address] [address], [employer] [address] [place] [address] from Last 3 Months or Most Recently Relevant to Health Maintenance Insurance MEDICARE - [facility]) Member Subscriber Plan / Payer (Ef fective 2022-Present) Name:Lucita Parekh Relation to Subscriber:Self Name:Lucita Parekh Payer ID:[id number] Group ID:Not on file [facility] Address: [address] [place] [id number] Advance Directives Documents on File Type Date Recorded Patient Staff Psychiatrist Expl anation Directives to Physicians 08/22/2024 12:00 AM CHRIS HCP Care Teams Rag Room Supervisor Relationship Specialty Start Date End Date Rosalva Reyes MD [address] [place] [address] PCP - General 12/17/24
--- OUTSIDE RECORDS SUMMARY | 2025-03-31 14:04 | XMS_ITS | Clinical Summary ---
Author Organization [facility] Address [address] [address] Phone Care Team Providers Care Director Of Market Analysis Name Role Phone Caitlyn Swanson NP Primary Care Provider Allergies No known active allergies Medications * [...] Description 02/25/2026 10:10 AM EDT Office Visit [facility] [address] [place] [address] Brianne Curtis MD, MPH [address] [facility], [facility] [address] [place] [address] [email or web address] Health Maintenance Due Date Last Done Comments [...] topic Medical Devices Not on file Insurance [address] [place], [place] [id number] MEDICARE PART A & B [facility] MEDIC[facility] PART A & B [facility] MEDICARE [facility] A & B [facility] MEDICARE PART A & B [facility] MEDICARE PART A & B [facility] MEDIC[facility] PART A & B [facility] MEDICARE PART A & B [facility] MEDICARE PART A & B [facility] HMO MEDICARE PART A & [place] [id number] Advance Directives For more information, please contact: [phone] (9AM - 5PM [facility], Monday-Monday) * Full Code (Presumed) (Latest Code Status on File) Date Activated Date Inactivated Comments 02/09/2018 11:50 PM 02/14/2018 1:55 PM Care Teams Director Of Market Analysis Relationship Specialty Start Date End Date Cailtyn Swanson NP [address] [place] [address] PCP - General Nurse Practitioner 12/19/24 Additional Source Comments The information contained in this document represents components of the legal health record. It is not the complete legal health record.[facility]
== END 2025-03-31 14:08 | disposition home or self-care (01) ==
LOC: HO.HOS 13:22
PROVIDERS: PCP Nurse Practitioner Family
DX: R20.0 Anesthesia of skin (principal); R20.2 Paresthesia of skin
CPT/HCPCS: 99213

== ENCOUNTER → 2025-03-31 13:27 | Outpatient (BNV) | payer MEDICARE, OTHER, SELFPAY | PROVIDERS: PCP Nurse Practitioner Family; Visit Provider Radiology Diagnostic Radiology | DX: M19.041 Primary osteoarthritis, right hand (principal) | CPT/HCPCS: 73130 ==

== ENCOUNTER 2025-04-09 10:41 | Outpatient (REF) | payer MEDICARE, OTHER, SELFPAY ==
--- NOTE | ~2025-04-09 | XR_ITS ---
EXAMINATION: XR KNEE, LEFT CLINICAL INFORMATION: M25.562 - Pain in left knee COMPARISON: Radiographs of the left knee on January 30, 2024 TECHNIQUE: Three views of the left knee. FINDINGS: Left: No acute fracture. Normal alignment. No significant interval change of the degenerative changes with narrowing of the medial femorotibial compartment. No suprapatellar joint effusion. Right: Status post total knee arthroplasty. No evidence of complications in this frontal view. XR/XR knee LT 3V IMPRESSION: Left knee: Unchanged degenerative changes. Electronically signed by: Lupillo Michelle MD 04/09/2025 02:23 PM EDT
--- OUTSIDE RECORDS SUMMARY | 2025-04-10 11:22 | XMS_ITS | Clinical Summary ---
Author Organization [facility] Address [address] [place] [address] Care Team Providers Care Boiler Maker Name Role Phone Rosalva Reyes MD Primary [...] by mouth 3 (three) times daily Active apixaban (ELIQUIS) 5 mg tabIndications:Chr onic atrial fibrillation ([facility]) Take 1 Tablet by mouth 2 (two) times a day 180 Tablet 4 09/19/19 25 Active busPIRone (BUSPAR) 7.5 mg tabletIndications: Situational anxiety Take 1 Tablet by mouth 3 (three) times daily 90 Tablet 1 10/05/19 25 Active Additional Information Patient not taking.Reported on 01/03/2025 prazosin (MINIPRESS) 5 mg capsuleIndications :Major depression, recurrent, chronic ([facility] V24) Take 1 Capsule by mouth nightly at bedtime. 90 Capsule 3 01/29/20 25 Active metoprolol succinate XL (TOPROL-XL) 50 mg 24 hr tabletIndications: Chronic atrial fibrillation ([facility]) Take 1 Tablet by mouth nightly at [...] daily. 90 Tablet 4 03/05/20 25 Active gabapentin (NEURONTIN) 300 mg capsuleIndications :Anxiety,Spinal stenosis of lumbar region, unspecified whether neurogenic claudication present Take 1 Capsule by mouth nightly at bedtime. 90 Capsule 03/17/20 25 Active solifenacin (VESICARE) 10 mg tablet Take 1 Tablet by mouth once daily. 90 Tablet 4 04/02/20 25 Active venlafaxine XR (EFFEXOR XR) 150 mg 24 hr capsuleIndications :Major depression, recurrent, chronic ([facility] V24) Take 1 Capsule by mouth once daily with breakfast. 90 Capsule 1 04/02/20 25 Active clonazePAM (KLONOPIN) 1 mg tabletIndications: Major depression, recurrent, chronic ([facility] V24) Take 1 Tablet by mouth nightly at bedtime for 28 days. 28 Tablet 04/10/20 25 025 Active pantoprazole (PROTONIX) 40 mg EC tabletIndications: Gastroesophageal reflux disease without esophagitis Take 1 Tablet by mouth daily. 90 Tablet 3 04/10/20 25 026 Active melatonin 3 mg tabletIndications: Adjustment insomnia Take 1 Tablet by mouth nightly at bedtime as needed for sleep. 90 Tablet 4 04/10/20 25 Active melatonin 3 mg tabletIndications: Adjustment insomnia Take 1 Tablet by mouth nightly at bedtime as needed for sleep 90 Tablet 4 08/23/20 24 025 Discontin ued(Reord er (E-Cancel Not Sent)) solifenacin (VESICARE) 10 mg tablet TAKE 1 TABLET BY MOUTH ONCE A DAY 90 Tablet 4 08/23/20 24 025 Discontin ued(Reord er (E-Cancel Not Sent)) venlafaxine XR (EFFEXOR XR) 150 mg 24 hr capsuleIndications :Major depression, recurrent, chronic ([facility] V24) Take 1 Capsule by mouth once daily with breakfast 90 Capsule 1 09/17/19 25 025 Discontin ued(Reord er (E-Cancel Not Sent)) gabapentin (NEURONTIN) 300 mg capsuleIndications :Anxiety,Spinal stenosis of lumbar region, unspecified whether neurogenic claudication present Take 1 Capsule by mouth nightly at bedtime 90 Capsule 12/18/19 25 025 Discontin ued(Reord er (E-Cancel Not Sent)) pantoprazole (PROTONIX) 40 mg EC tabletIndications: Gastroesophageal reflux disease without esophagitis Take 1 Tablet by mouth daily 90 Tablet 3 01/04/20 25 025 Discontin ued(Reord er (E-Cancel Not Sent)) clonazePAM (KLONOPIN) 1 mg tabletIndications: Major depression, recurrent, chronic ([facility] V24) Take 1 Tablet by mouth nightly at bedtime for 28 days. 28 Tablet 03/12/20 25 025 Discontin ued(Reord er (E-Cancel Not [...] back to higher dose Chronic atrial fibrillation ([facility]) 08/04 Fractures 02/09/2022 Overview (07/01/2022): Per ot: Fractures of ribs 3 and 4 (left side), Fractures of both wrists and left thumb Osteopenia 06/04/2021 Renal cyst, right 04/25/2019 History of basal cell carcinoma 06/13/2018 Overview (06/11/2024): BCC 06/21 left arm (superficial) Sees annually DR Jaguar Cardona Ma 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 ([facility]) 02/09/2018 Overview (09/19/2024): 06/11/2024 PHQ-9 Total Score [...] Date Resolved Date Major depression, recurrent, chronic ([facility] V24) 12/23/2013 06/08/2023 Overview (07/01/2022): [place] admission 09/2016, 05/2017, [facility] Ad[facility] 08/2017 - intentional overdose hx x2 , ECT therapy 05/2017, outside psychiatric care Dr Barry Immunizations Immunization Administration Dates Next Due Flu, [...] preservative free 08/16/2017 ZOSTER VACCINE, RECOMBINANT (SHINGRIX) 2,07/10/2021 [...] 08/22/2024 , 06/11/2024, 05/09/2024, Additional history exists [id number] ( season) 2024 06/11/2024, 06/20/2023, 05/30/2021, Additional [...] Procedure Name Priority Date/Time Associated Diagnosis Comments LIPID PANEL Routine 09/19/2024 2:00 PM EST Mixed hyperlipidemia ACUTE HEPATITIS PANEL W/RFLX Routine 06/08/2023 1:29 PM EDT Screening for venereal disease from Last 3 Months or Most Recently Relevant to Health Maintenance Results * LIPID PANEL (09/19/2024 2:00 PM EST) CHOLESTEROL, TOTAL 161 <200 mg/dL 09/20/2024 4:30 AM EST [facility] HDL CHOLESTEROL 62 > OR = 50 mg/dL 09/20/2024 4:30 AM EST [facility] TRIGLYCERIDES 70 <150 mg/dL 09/20/2024 4:30 AM EST [facility] [employer] [facility] LDL-CHOLESTEROL 84 mg/dL (calc) 09/20/2024 4:30 AM EST [facility] CHOL/HDLC RATIO 2.6 <5.0 (calc) 09/20/2024 4:30 AM EST [facility] NON-HDL CHOLESTEROL 99 <130 mg/dL (calc) 09/20/2024 4:30 AM EST [facility] Blood Blood / Unknown 09/19/2024 2 :00 PM EST 09/20/2024 2:42 AM EST Narrative [facility] - 09/20/2024 4:33 AM EST FASTING:YES Reference [...] LDL-C. Ata GATES et al. ELEUTERIO. 2013;310(19): 4961-2278 (http://education.QA on Request/faq/GFD097) For patients with diabetes plus 1 major ASCVD risk factor, treating to a non-HDL-C goal of <100 mg/dL (LDL-C of <70 mg/dL) is considered a therapeutic option. [facility] - BLOOD DRAW Final Resul t [facility] [address] [address], [facility] [address] [address] * ACUTE HEPATITIS PANEL W/RFLX (06/08/2023 1:29 PM EDT) HEPATITIS A IGM ANTIBODY NON-REACT JCARLOS NON-REACT JCARLOS 06/09/2023 3:07 AM EDT [facility] HEPATITIS B SURFACE ANTIGEN NON-REACT JCARLOS NON-REACT JCARLOS 06/09/2023 3:07 AM EDT [facility] HEPATITIS B CORE IGM ANTIBODY NON-REACT JCARLOS NON-REACT JCARLOS 06/09/2023 3:07 AM EDT [facility] HEPATITIS C ANTIBODY NON-REACT JCARLOS NON-REACT JCARLOS 06/09/2023 3:07 AM EDT [facility] Blood Blood / Unknown 06/08/2023 1 :29 PM EDT 06/09/2023 1:31 AM EDT Narrative [facility] - 06/09/2023 4:41 AM EDT FASTING:UNKNOWN . HCV antibody was non-reactive. There is no laboratory evidence of HCV infection. . In most cases, no further action is required. However, if recent HCV exposure is suspected, a test for HCV RNA (test code 91330) is suggested. . For additional information please refer to http://[employer]Six[employer]/faq/SFN25k7 (This link is being provided for informational/ educational purposes only.) . . For additional information, please refer to http://[employer]/faq/NSJ294 (This link is being provided for informational/ educational purposes only.) . Caitlyn Swanson [facility] - BLOOD DRAW Final Resul t [facility] [address] [place] [address], [facility] [address] [address] from Last 3 Months or Most Recently Relevant to Health Maintenance Insurance MEDICARE - [place] [facility] Member Subscriber Plan / Payer (Ef fective 2022-Present) Name:Lucita Parekh Relation to Subscriber:Self Name:Angelina Parekhah Payer ID:[id number] Group ID:Not on file Type:Indemnity Address: [address] [place] [id number] Advance Directives Documents on File Type Date Recorded Patient Airplane Gastank Liner Assembler Expl anation Directives to Physicians 08/22/2024 12:00 AM [facility] HCP Care Teams Boiler Maker Relationship Specialty Start Date End Date Rosalva Reyes MD [address] [place] [address] PCP - General 12/17/24
--- OUTSIDE RECORDS SUMMARY | 2025-04-10 11:22 | XMS_ITS | Clinical Summary ---
Author Organization [address] Address [address] [place] [phone] Phone Care Team Providers Care Cloth Picker Name Role Phone Luca Thibodeaux MD Primary [...] chronic (CMS/HCC V2 4) 12/23/2013 Overview (08/30/2024): [place] admission 09/2016, 05/2017, [facility] Admission 08/2017 [...] lt breast UPPER GASTROINTESTINAL ENDOSCOPY 2013 PROCEDURE: [place] UPPER GI ENDOSCOPY PERFORMED; COMMENT: normal UPPER GASTROINTESTINAL ENDOSCOPY 08/2001 PROCEDURE: IA UPPER GI ENDOSCOPY PERFORMED; COMMENT: WNL APPENDECTOMY 01/2020 PROCEDURE: HISTORICAL APPENDECTOMY; COMMENT: [place] COLONOSCOPY 09/11/2020 PROCEDURE: HISTORICAL COLONOSCOPY; COMMENT: Minimal diverticulosis; 3 mm cecal polyp: Tubular adenoma. APPENDECTOMY PROCEDURE: [place] APPENDECTOMY Medical History Medical History Date Comments Irritable bowel syndrome DX:Irri table bowel syndrome; COMMENT: EGD, Colonoscopy (-)08/06/01 Lumbosacral spondylosis with out myelopathy DX:Lumbosacral spondylosis w ithout myelopathy Generalized osteoarthrosis, involving hand DX:Generalized osteoarthrosi s, involving hand Dermatophytosis of foot DX:[place] tophytosis of foot Iron deficiency anemia secon [...] DX:Major depression, recurre nt, chronic (HCC); COMMENT: [place] admission 09/2016, 05/2017, [facility] Ad[facility] 08/2017 [...] is recommended in 1 year. MAMMO LOCATION: [facility], [address] [place] [address], [address], . -------- FINAL REPORT -------- Dictated By: Domitila Joshua Dictated Date: 08/09/2024 15:18 ET Assigned Physician: Domitila Joshua Reviewed and Electronically Signed By: Domitila Joshua Signed Date: 08/09/2024 15:19 ET Workstation ID: [id number] Transcribed By: Self Edit Transcribed Date: 08/09/2024 [...] is recommended in 1 year. MAMMO LOCATION: [facility], [address] [place] [address], [address], . -------- FINAL REPORT -------- Dictated By: Domitila Joshua Dictated Date: 08/09/2024 15:18 ET Assigned Physician: Domitila Joshua Reviewed and Electronically Signed By: Domitila Joshua Signed Date: 08/09/2024 15:19 ET Workstation ID: [id number] Transcribed By: Self Edit Transcribed Date: 08/09/2024 15:18 ET Catilyn Swanson APPRAISER IRRIGATION TAX IMG BI PROCEDURES Final Result * Hepatitis [...] Fracture Risk Assessment) [facility] Department of Internal Medicine recommends using [...] Fracture Risk Assessment) [facility] Department of Internal Medicine recommendsusing National [...] Recently Relevant to Health Maintenance Insurance MEDICARE [facility] Care Teams Cloth Picker Relationship Specialty Start Date End Date Luca Thibodeaux MD [address] [place] [address] PCP - General Internal Medicine 01/10/22
--- OUTSIDE RECORDS SUMMARY | 2025-04-10 11:22 | XMS_ITS | Clinical Summary ---
Author Organization [facility] Address [address] [facility] [address] [place] [address] Phone Care Team Providers Care Bundling Machine Operator Name Role Phone Caitlyn Swanson NP [...] Description 02/25/2026 10:10 AM EDT Office Visit [facility] Rheumatology [address] [place] [address] Brianne Curtis MD, MPH [address] [facility], [facility] [address] [place] [address] Health Maintenance Due Date Last Done Comments [...] topic Medical Devices Not on file Insurance [address] [place], [place] [address]O MEDICARE [facility] PART A & B [facility] Address: [place] [address] MEDICARE PART A & B [facility] MEDIC[facility] PART [facility] & [facility] Address: [place] [address] MEDICARE PART A & B [facility] Address: [address] [address] MEDICARE PART [facility] Address: [place] [address] MEDICARE PART A & B [facility] [place] [id number] Advance Directives For more information, please contact: [phone] (9AM - 5PM [facility], Monday-Monday) * Full Code (Presumed) (Latest Code Status on File) Date Activated Date Inactivated Comments 02/09/2018 11:50 PM 02/14/2018 1:55 PM Care Teams Bundling Machine Operator Relationship Specialty Start Date End Date Caitlyn Swanson NP [address] [place] [address] PCP - General Nurse Practitioner 12/19/24 Additional Source Comments The information contained in this document represents components of the legal health record. It is not the complete legal health record.[facility]
--- OUTSIDE RECORDS SUMMARY | 2025-04-10 11:23 | XMS_ITS | Patient Health Record ---
Author Organization [facility] Address [address] [place] [address] Care Team Providers Care Rate Examiner Name Role Phone Hilda KYLE, Nallely Primary Care Provider Kaye martinsyaniraBETO Ling Unavailable [phone] Reason For Referral No Information Medications Medication SIG (Take, Route, Frequency, Duration) Notes Start Date End Date Status clonazePAM 2 MG Oral; Duration: 30 Days Active oxyCODONE HCl 10 MG Oral; Duration: 4 Days Active Venlafaxine HCl ER 75 MG Oral; Duration: 28 Days Active LORazepam 1 MG Oral; Duration: 10 Days Active Amphetamine-Dextroamphetami ne 10 MG Oral; Duration: 30 Days Acti ve Gabapentin 300 MG Oral; Duration: 28 Days Active Metoprolol Succinate ER 50 MG Oral; Duration: 28 Days Acti ve Eliquis 5 MG Oral; Duration: 28 Days Active Prazosin HCl 5 MG Oral; Duration: 28 Days Active Pantoprazole Sodium 40 MG Oral; Duration: 28 Days Active Atorvastatin Calcium 20 MG Oral; Duration: 28 Days Active Solifenacin Succinate 5 MG Oral; Duration: 28 Days Active Social History Tobacco Use: [...] Status Risk Notes Problem Right shoulder pain (0260841787) Right shoulder pain (M25.511) Active confirmed Problem Left shoulder pain (3424991143) Left shoulder pain (M25.512) Active confirmed Problem Abnormal gait (60961557) Balance disorder (R26.89) Active confirmed Problem Right anterior knee pain (M25.561) Active confirmed Problem Localized, primary osteoarthritis of the hand (611185265) Osteoarthritis of carpometacarpal (CMC) joint of both thumbs (M18.0) Active confirmed Problem Localized, primary osteoarthritis of the hand (360870424) Arthritis of carpometacarpal (CMC) joint of both thumbs (M18.0) Active confirmed Plan Of Treatment Next Appt Details Provider Name:BETO LAM, 05/14/2025 03:00:00 PM, [address] [place] [address], [phone], Insurance Providers Payer Name Payer Address Payer Phone Subscriber Number Group Number Insured Name Patient Relationship to Insured Coverage Start Date Coverage End Date Medicare [address] [place] [address] [id number] Lucita Young Self - patient is the insured [facility] [address] [place] [address] [id number] Lucita Young Self - patient is the insured Medications Administered Medication Instructions Date of Administration Dosage Notes AspInj Large Joint Bursa UGI 04/28/2023 AspInj Small Joint Bursa 04/18/2023 Celestone 04/18/2023 6 mg Celestone 04/28/2023 3 mg Medical (General) History Medical History History ICD Code anxiety attention problems depression osteoprosis Surgical History Surgery Date(Month/Year) appendix removed Right [facility] 11/02/2021
== END 2025-04-09 10:42 | disposition home or self-care (01) ==
LOC: HO.HOSX 10:41
PROVIDERS: Visit Provider Physician Assistant
DX: M17.12 Unilateral primary osteoarthritis, left knee (principal); M76.892 Other specified enthesopathies of left lower limb, excluding foot; M25.562 Pain in left knee; Z96.651 Presence of right artificial knee joint
CPT/HCPCS: 73562; 99212

== ENCOUNTER 2025-04-09 13:35 | Outpatient (AMB) | payer MEDICARE, OTHER, SELFPAY ==
--- NOTE | 2025-04-09 13:55 | MHC.OFFVIS ---
Vital Signs 04/09/25 13:56 Height 5 ft 6 in Weight 171 lb BMI 27.6 Intake Visit Reasons: OV- LT Knee OA Intake Note: Lucita is a 74 year old female who presents today for a follow up of left knee OA. At her last visit with Dr. Hennessy states a left TKA was recommended. Today patient would like to discuss conservative measures. Hx of right TKA in 2021. Patient reports she had a date set for the left TKA however she did not have a caregiver at the time. She says bn she has a place at the [facility] which is one floor, no stairs. She would have no help however she says [facility] in [facility] has a program where they go into patient's home to get it accessible for her post surgery. She would like to have the surgery done in [facility], next springDecember 2025, however she would prefer for Dr Hennessy to get it done. Her partner of 40 years is now no longer able to be a reliable help for her and she says most of her support in the [facility]. She presents today with pain in the posterior aspect of the left knee that radiates into the buttock and into her calf. She reports this is not 24/7 but if she has days where she is standing for longer than normal which increases her pain. She describes it feels as if someone is kicking her in the back of the knee. Allergies No Known Allergies (No Known Allergies*) Allergy (Verified 04/09/25 13:56) HPI HPI OV- LT Knee OA: Details: 74-year-old female presents to the office today for left knee pain. She states the pain is primarily behind the knee which extends into the proximal calf region. There is no direct calf pain. She denies specific pain or the knee or with any type of activity. She is active with an exercise program at the [facility]. She has a history of a right TKA done with Dr. Hennessy in the past with good results. [facility] Medical History Gait apraxia Arthritis of left knee Gait disturbance HTN (hypertension) Osteoarthritis IBS (irritable bowel syndrome) Major depression, recurrent, chronic Vitamin D deficiency Abnormal gait Pure hypercholesterolemia Severe major depression without psychotic features Hx of basal cell carcinoma Osteopenia Paroxysmal atrial fibrillation Surgical History History of esophagogastroduodenoscopy (EGD) Hx of colonoscopy Hx of breast biopsy Hx of hysterectomy Hx of appendectomy Family History Father No problems noted. Mother No problems noted. Social History Are you a primary healthcare facility administrator to a significant other at home: No Do you presently have visiting nurse or other home services: Yes ([employer] 4 hours per week) Comment: aware of trip hazard Patient Tobacco Use Status: Former Tobacco user Tobacco use type: Cigarette Advance Directives Date on File: 11/11/21 service: No Current occupational status: retired Current occupation: rt handed Review of Systems Const All systems reviewed & are unremarkable except as noted in HPI and below Physical Exam Vital Signs: BMI result Body Mass Index 27.6 Extrem Other: Left knee is normal to inspection. She has full range of motion without pain or crepitus. No specific tenderness to palpation around the knee joint. She has mild tenderness along the insertion of the proximal gastroc. She can plantar and dorsiflex without limitations. Neurovascularly intact. Results Reviewed Results Reviewed: X-ray of the left knee obtained in the office today and reviewed by me shows medial joint space narrowing Assessment & Plan Assessment & Plan (1) Osteoarthritis of left knee: Code(s): M17.12 - Unilateral primary osteoarthritis, left knee Category: Medical (2) Hamstring tendonitis of left thigh: Code(s): M76.892 - Other specified enthesopathies of left lower limb, excluding foot Category: Medical Plan We discussed options today which includes continued conservative management with physical therapy for strength and conditioning. We also discussed the benefits of steroid injections however without the complaint of actual knee pain I do not feel this will be helpful for her. We briefly discuss the role of total knee arthroplasty and when she is at a point she feels her quality of life is diminished and there is no relief from conservative management she can talk further with us to proceed. All questions were answered and she will follow up as needed. Orders: Orders XR knee LT 3V Today M25.562 - Pain in left knee PT Evaluation and Treatment Today M17.12 - Unilateral primary osteoarthritis, left knee, M76.892 - Other specified enthesopathies of left lower limb, excluding foot Coding Level of Care Code Est Pt Level 3 (66253) Complex EM visit Add On G2211 Diagnoses Osteoarthritis of left knee M17.12 Hamstring tendonitis of left thigh M76.892
[2025-04-09 13:56] VITALS: BMI 27.6
== END 2025-04-09 14:21 | disposition home or self-care (01) ==
LOC: HO.HOS 13:36
PROVIDERS: PCP Nurse Practitioner Family; Visit Provider Physician Assistant
DX: M17.12 Unilateral primary osteoarthritis, left knee (principal); M76.892 Other specified enthesopathies of left lower limb, excluding foot
CPT/HCPCS: 99213; G2211

== ENCOUNTER → 2025-04-09 13:39 | Outpatient (BNV) | payer MEDICARE, OTHER, SELFPAY | PROVIDERS: Visit Provider Radiology Body Imaging | DX: M17.12 Unilateral primary osteoarthritis, left knee (principal) | CPT/HCPCS: 73562 ==

== ENCOUNTER → 2025-04-18 14:43 | Outpatient (REF) | payer MEDICARE, OTHER, SELFPAY ==
--- OUTSIDE RECORDS SUMMARY | 2025-04-18 14:46 | XMS_ITS | Clinical Summary ---
Author Organization [facility] Address [address] [facility] [address] [place] [address] Phone Care Team Providers Care Hat Cleaner Name Role Phone Caitlyn Swanson NP Primary Care Provider [phone] Allergies No known active allergies Medications * [...] Description 02/25/2026 10:10 AM EDT Office Visit [facility] Rheumatology [address] [place] [address] Brianne Curtis MD, MPH [address] [facility], [facility] [address] [place] [address] [email or web address] Health Maintenance Due Date Last Done Comments [...] topic Medical Devices Not on file Insurance [address] [place], [place] [id number] MEDICARE [facility]IC[facility] & B [facility] Address: [place] [address] MEDICARE PART A & B [facility] MEDIC[facility] PART A & [facility] [place] [address] MEDICARE PART A & [facility] Address: [address] [address] MEDICARE PART A & [facility] Address: [place] [address] MEDICARE PART A & B [facility] HMO MEDICARE PART A [place] [id number] Advance Directives For more information, please contact: [phone] (9AM - 5PM [facility], Monday-Monday) * Full Code (Presumed) (Latest Code Status on File) Date Activated Date Inactivated Comments 02/09/2018 11:50 PM 02/14/2018 1:55 PM Care Teams Hat Cleaner Relationship Specialty Start Date End Date Caitlyn Swanson NP [address] [place] [address] PCP - General Nurse Practitioner 12/19/24 Additional Source Comments The information contained in this document represents components of the legal health record. It is not the complete legal health record.[facility]
--- OUTSIDE RECORDS SUMMARY | 2025-04-18 14:46 | XMS_ITS | Clinical Summary ---
Author Organization [facility] Address [address] [place] [address] Care Team Providers Care Salvage Inspector Name Role Phone Rosalva Reyes MD Primary [...] (ELIQUIS) 5 mg tabIndications:Chr onic atrial fibrillation ([facility]) Take 1 Tablet by mouth 2 (two) times a day 180 Tablet 4 09/19/19 25 Active busPIRone (BUSPAR) 7.5 mg tabletIndications: Situational anxiety Take 1 Tablet by mouth 3 (three) times daily 90 Tablet 1 10/05/19 25 Active Additional Information Patient not taking.Reported on 01/03/2025 prazosin (MINIPRESS) 5 mg capsuleIndications :Major depression, recurrent, chronic ([facility] V24) Take 1 Capsule by mouth nightly at bedtime. 90 Capsule 3 01/29/20 25 Active metoprolol succinate XL (TOPROL-XL) 50 mg 24 hr tabletIndications: Chronic atrial fibrillation ([facility]) Take 1 Tablet by mouth nightly at [...] 24 hr capsuleIndications :Major depression, recurrent, chronic ([facility] V24) Take 1 Capsule by mouth once daily with breakfast. 90 Capsule 1 04/02/20 25 Active clonazePAM (KLONOPIN) 1 mg tabletIndications: Major depression, recurrent, chronic ([facility] V24) Take 1 Tablet by [...] 24 hr capsuleIndications :Major depression, recurrent, chronic ([facility] V24) Take 1 Capsule by mouth once daily with breakfast 90 Capsule 1 09/17/19 25 025 Discontin ued(Reord er (E-Cancel Not Sent)) pantoprazole (PROTONIX) 40 mg EC tabletIndications: Gastroesophageal reflux disease without esophagitis Take 1 Tablet by mouth daily 90 Tablet 3 01/04/20 25 025 Discontin ued(Reord er (E-Cancel Not Sent)) clonazePAM (KLONOPIN) 1 mg tabletIndications: Major depression, recurrent, chronic ([facility] V24) Take 1 Tablet by [...] back to higher dose Chronic atrial fibrillation ([facility]) 08/04 Fractures 02/09/2022 Overview (07/01/2022): Per ot: Fractures of ribs 3 and 4 (left side), Fractures of both wrists and left thumb Osteopenia 06/04/2021 Renal cyst, right 04/25/2019 History of basal cell carcinoma 06/13/2018 Overview (06/11/2024): BCC 06/21 left arm (superficial) Sees annually DR Jaguar Cardona Ma 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 ([facility]) 02/09/2018 Overview (09/19/2024): 06/11/2024 PHQ-9 [...] Date Resolved Date Major depression, recurrent, chronic ([facility] V24) 12/23/2013 06/08/2023 Overview (07/01/2022): [place] admission 09/2016, 05/2017, [facility] Ad[facility] 08/2017 [...] 09/24/2024 8:22 AM EST Plan of Treatment Upcoming Encounters Date Type Department Care Team (Late st Contact Info) Description 06/18/2025 9:00 AM EDT Telemedicine Visit [facility] [address] [place] [phone] Nallely Stevens AGNP-C [address] [facility] [address] [phone] 09/10/2025 3:20 PM EST Office Visit [facility] [address] [place] [address] Rosalva Reyes MD [address] [place] [address] Health Maintenance Due Date Last Done Comments [...] 08/22/2024 , 06/11/2024, 05/09/2024, Additional history exists [id number] ( season) 2024 06/11/2024, 06/20/2023, 05/30/2021, Additional history exists Imm-Influenza (#1) 2025 06/11/2024, 1 , 08/22/2022, Additional history exists Tobacco Screening 06/11/2025 06/11/2024 Lipid Screening 09/19/2025 09/19/2024, 09/15/2022 Hypertension Screening (#1) 01/03/2026 Breast Cancer Screening (Mammogram) 08/08/2026 08/08/2024 Imm-DTaP/Tdap/Td (5 - Td or Tdap) 04/21/2032 04/21/2022, 08/16/2017, 02/25/2003, Additional history exists Imm-Pneumococcal 50+ Completed 02/10/2018, 08/16/20 17 Imm-Zoster, Recombinant Completed [...] 161 <200 mg/dL 09/20/2024 4:30 AM EST [facility] HDL CHOLESTEROL 62 > OR = 50 mg/dL 09/20/2024 4:30 AM EST [facility] TRIGLYCERIDES 70 <150 mg/dL 09/20/2024 4:30 AM EST [facility] LDL-CHOLESTEROL 84 mg/dL (calc) 09/20/2024 4:30 AM EST [employer] CHOL/HDLC RATIO 2.6 <5.0 (calc) 09/20/2024 4:30 AM EST [facility] NON-HDL CHOLESTEROL 99 <130 mg/dL (calc) 09/20/2024 4:30 AM EST [facility] Blood Blood / Unknown 09/19/2024 2 :00 PM EST 09/20/2024 2:42 AM EST Narrative [facility] - 09/20/2024 4:33 AM EST FASTING:YES [...] LDL-C. Ata GATES et al. ELEUTERIO. 2013;310(19): 7073-1206 (http://education.Snippets.Joturl/faq/BDW918) For patients with diabetes plus 1 major ASCVD risk factor, treating to a non-HDL-C goal of <100 mg/dL (LDL-C of <70 mg/dL) is considered a therapeutic option. us [facility] - BLOOD DRAW Final Resul t [employer] [address] [place] [id number], [facility] [address] [address] [phone] * ACUTE HEPATITIS PANEL W/RFLX (06/08/2023 1:29 PM EDT) HEPATITIS A IGM ANTIBODY NON-REACT JCARLOS NON-REACT JCARLOS 06/09/2023 3:07 AM EDT [facility]) [facility] HEPATITIS B SURFACE ANTIGEN NON-REACT JCARLOS NON-REACT JCARLOS 06/09/2023 3:07 AM EDT [facility] ([facility]) [facility] HEPATITIS B CORE IGM ANTIBODY NON-REACT JCARLOS NON-REACT JCARLOS 06/09/2023 3:07 AM EDT [facility] ([facility]) [facility] HEPATITIS C ANTIBODY NON-REACT JCARLOS NON-REACT JCARLOS 06/09/2023 3:07 AM EDT [facility] ([facility]) [facility] Blood Blood / Unknown 06/08/2023 1 :29 PM EDT 06/09/2023 1:31 AM EDT Narrative [facility] ([facility]) [facility] - 06/09/2023 4:41 AM EDT FASTING:UNKNOWN . HCV antibody was non-reactive. There is no laboratory evidence of HCV infection. . In most cases, no further action is required. However, if recent HCV exposure is suspected, a test for HCV RNA (test code 83396) is suggested. . For additional information please refer to http://education.Pulse Technologies/faq/DFP62h6 (This link is being provided for informational/ educational purposes only.) . . For additional information, please refer to http://Handpressions.Vesta ([place] Equipment.Joturl/faq/SID313 (This link is being provided for informational/ educational purposes only.) . Caitlyn Swanson [facility] - BLOOD DRAW Final Resul t [facility] ([facility]) [facility] [address] [address], [facility] ([facility]) [facility] [address] [place] [phone] from Last 3 Months or Most Recently Relevant to Health Maintenance Insurance MEDICARE - [place] [facility]) Member Subscriber Plan / Payer (Ef fective 2022-Present) Name:Lucita Parekh Relation to Subscriber:Self Name:Lucita Parekh Payer ID:[id number] Group ID:Not on file Type:Indemnity Address: [address] [place] [id number] Advance Directives Documents on File Type Date Recorded Patient Flour Mixer Helper Expl anation Directives to Physicians 08/22/2024 12:00 AM CHRIS HCP Care Teams Salvage Inspector Relationship Specialty Start Date End Date Rosalva Reyes MD [address] [place] [address] PCP - General 12/17/24
--- OUTSIDE RECORDS SUMMARY | 2025-04-18 14:46 | XMS_ITS | Clinical Summary ---
Author Organization [address] Address [address] [place] [phone] Phone Care Team Providers Care Placement Assistant Name Role Phone Luca Thibodeaux MD Primary [...] chronic (CMS/HCC V2 4) 12/23/2013 Overview (08/30/2024): [facility] 09/2016, 05/2017, [facility] Ad[facility] 08/2017 [...] lt breast UPPER GASTROINTESTINAL ENDOSCOPY 2013 PROCEDURE: HI UPPER GI ENDOSCOPY PERFORMED; COMMENT: normal UPPER GASTROINTESTINAL ENDOSCOPY 08/2001 PROCEDURE: HI UPPER GI ENDOSCOPY PERFORMED; COMMENT: WNL APPENDECTOMY 01/2020 PROCEDURE: HISTORICAL APPENDECTOMY; COMMENT: [facility] COLONOSCOPY 09/11/2020 PROCEDURE: HISTORICAL COLONOSCOPY; COMMENT: Minimal diverticulosis; 3 mm cecal polyp: Tubular adenoma. APPENDECTOMY PROCEDURE: [place] APPENDECTOMY Medical History Medical History Date Comments Irritable bowel syndrome DX:Irri table bowel syndrome; COMMENT: EGD, Colonoscopy (-)08/06/01 Lumbosacral spondylosis with out myelopathy DX:Lumbosacral spondylosis w ithout myelopathy Generalized osteoarthrosis, involving hand DX:Generalized osteoarthrosi s, involving hand Dermatophytosis of foot DX:[place] tophytosis of foot Iron deficiency anemia secon [...] DX:Major depression, recurre nt, chronic (HCC); COMMENT: [facility] admission 09/2016, 05/2017, [facility] Admission 08/2017 [...] is recommended in 1 year. MAMMO LOCATION: [facility], [address] [place] [address], [address], . -------- FINAL REPORT -------- Dictated By: Domitila Joshua Dictated Date: 08/09/2024 15:18 ET Assigned Physician: Domitila Joshua Reviewed and Electronically Signed By: Domitila Joshua Signed Date: 08/09/2024 15:19 ET Workstation ID: [id number] Transcribed By: Self Edit Transcribed Date: 08/09/2024 [...] is recommended in 1 year. MAMMO LOCATION: [facility], [address] [place] [address], [address], . -------- FINAL REPORT -------- Dictated By: Domitila Joshua Dictated Date: 08/09/2024 15:18 ET Assigned Physician: Domitila Joshua Reviewed and Electronically Signed By: Domitila Joshua Signed Date: 08/09/2024 15:19 ET Workstation ID: [id number] Transcribed By: Self Edit Transcribed Date: 08/09/2024 15:18 ET Caitlyn Swanson HYDROLOGIC MODELER IMG BI PROCEDURES Final Result * Hepatitis [...] Organization Fracture Risk Assessment) [facility] Department of Internal Medicine recommends using National [...] Organization Fracture Risk Assessment) [facility] Department of Internal Medicine recommendsusing National Osteoporosis [...] Recently Relevant to Health Maintenance Insurance MEDICARE [facility] Care Teams Placement Assistant Relationship Specialty Start Date End Date Luca Thibodeaux MD [address] [place] [address] PCP - General Internal Medicine 01/10/22
--- OUTSIDE RECORDS SUMMARY | 2025-04-18 14:46 | XMS_ITS | Patient Health Record ---
Author Organization [facility] Address [address] [place] [address] Care Team Providers Care Animal Anatomist Name Role Phone Hilda KYLE, Nallely Primary Care Provider Kaye martinsyaniraBETO Ling Unavailable [phone] Reason For Referral No Information Medications Medication [...] Status Risk Notes Problem Right shoulder pain (2837399314) Right shoulder pain (M25.511) Active confirmed Problem Left shoulder pain (3303837321) Left shoulder pain (M25.512) Active confirmed Problem Abnormal gait (30273871) Balance disorder (R26.89) Active confirmed Problem Right anterior knee pain (M25.561) Active confirmed Problem Localized, primary osteoarthritis of the hand (086664270) Osteoarthritis of carpometacarpal (CMC) joint of both thumbs (M18.0) Active confirmed Problem Localized, primary osteoarthritis of the hand (182742467) Arthritis of carpometacarpal (CMC) joint of both thumbs (M18.0) Active confirmed Plan Of Treatment Next Appt Details Provider Name:BETO LAM, 05/14/2025 03:00:00 PM, [address] [place] [address], [phone], Insurance Providers Payer Name Payer Address Payer Phone Subscriber Number Group Number Insured Name Patient Relationship to Insured Coverage Start Date Coverage End Date Medicare [address] [place] [address] [id number] Lucita Young Self - patient is the insured [facility] [address] [place] [id number] Lucita Young Self - patient is the insured Medications Administered Medication Instructions Date of Administration Dosage Notes AspInj Large Joint Bursa UGI 04/28/2023 AspInj Small Joint Bursa 04/18/2023 Celestone 04/18/2023 6 mg Celestone 04/28/2023 3 mg Medical (General) History Medical History History ICD Code anxiety attention problems depression osteoprosis Surgical History Surgery Date(Month/Year) appendix removed Right TKR-[place] 11/02/2021
--- NOTE | 2025-04-18 14:47 | CA_ITS ---
Transthoracic Echocardiogram Patient (Last, First, Middle): Lucita Parekh A Gender: Female Date of : 1950 Age: 74 Procedure Date: 04/18/2025 Procedure Type: Transthoracic Echocardiogram Location: OP Height: 167.64 cm Weight: 77.11 kg BSA: 1.87 m2 Heart Rate: 69 bpm BP: 116 / 60 mmHg Medication Assistant: Referring MD: Brandt Correia MD Symptoms: I48.0 - Paroxysmal atrial fibrillation Study Quality: Adequate ECG Rhythm: Sinus Conclusions: - Normal left ventricular size and systolic function. There is moderately increased left ventricular wall thickness. The visually estimated ejection fraction is between 55-60%. - E/E prime ratio is between 8 and 15 consistent with indeterminate filling pressures. - Normal right ventricular cavity size and systolic function. 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 Findings Left Ventricle Normal left ventricular size and systolic function. There is moderately increased left ventricular wall thickness. The visually estimated ejection fraction is between 55-60%. There is no evidence of regional wall motion abnormalities. Abnormal diastolic function is noted. Spectral Doppler is indicative of an impaired relaxation filling pattern. E/E prime ratio is between 8 and 15 consistent with indeterminate filling pressures. Right Ventricle Normal right ventricular cavity size and systolic function. Atria The left atrium is normal in size. 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 Interatrial shunt cannot be excluded by color Doppler. The right atrium is likely dilated. Aortic Valve Normal aortic valve structure and function. There is no aortic valve stenosis. There is no aortic valve regurgitation. Mitral Valve The mitral valve appears normal. There is no mitral valve regurgitation. There is no mitral valve stenosis. Pulmonic Valve The pulmonic valve is normal. There is trace pulmonic valve regurgitation. Tricuspid Valve Normal tricuspid valve structure. There is trace tricuspid valve regurgitation. Tricuspid regurgitation envelope is inadequate for calculation of right ventricular systolic pressure. Normal right atrial pressure. Great Vessels All visible segments of the aorta are normal in size. Venous The inferior vena cava is normal in size and collapses greater than 50% with inspiration. Pericardium/Pleural There is no evidence of pericardial effusion. Prior Study Comparison No significant change compared to prior study dated: 06/19/2020. Measurements 2D Linear Measurements IVSd: 1.21 0.6-0.9/0.6-1.0 cm LVIDd: 3.92 3.9-5.3/4.2-5.9 cm LVIDd Index: 2.10 2.4-3.2/2.2-3.1 cm/m2 LVIDs: 2.67 2.0-3.6 cm LVPWd: 1.20 0.7-1.1 cm LA Diam: 3.70 2.7-3.8/3.0-4.0 cm LAIDs Index: 1.98 1.5-2.3 cm/m2 LV Mass: 201.14 67-162/88-224 g LV Mass Index: 107.56 43-95/49-115 g/m2 LVOT Diam: 2.10 3.0+(-)1.3 cm 2D Systolic Function EF 4C: 64.60 >55% EF 2C: 51.70 >55% EF BiP: 59.70 >55% Mitral Valve MV Pk E: 0.51 MV PK A: 0.74 MV Decel Time: 292.00 E/A: 0.70 E'Lateral: 6.96 E'Medial: 3.59 E/E' Med: 14.30 E/E' Lat: 7.40 PHT: 86.00 MVA PHT: 2.56 Decel Baca: 1.76 Aortic Valve AoV Pk Jac: 1.65 AoV Mn Jac: 0.98 AoV VTI: 0.35 AoV Pk Grad: 11.00 Aov Mn Grad: 5.00 MICH Cont.VTI: 2.02 LVOT LVOT Pk Jac: 0.87 LVOT Mn Jac: 0.59 LVOT VTI: 0.20 LVOT Pk Grad: 3.00 LVOT Mn Grad: 2.00 LVOT Diam: 2.10 LVOT Area: 3.46 Diastolic Function MV Pk E: 0.51 MV Pk A: 0.74 E/A: 0.70 E'Medial: 3.59 E/E' Med: 14.30 E' Laterial: 6.96 E/E' Lat: 7.40 Right Ventricle TAPSE (mm): 20.70 TVS' Jac: 10.80 Tricuspid Valve TR Pk Jac: 2.79 TR Pk Grad: 31.00 Great Vessels Aorta Sinus of Valsalva: 3.50 2.0-3.5 cm Ao Asc: 3.70 2.1-3.4 cm Pulmonary Valve PV Pk Jac: 0.96 Peak PV Grad: 4.00 Updated in Other Vendor System with Status of Final Aung Lacy MD electronically signed on 04/20/2025 2:06:56 PM with status of Final
== END ==
LOC: HO.CARD 14:43
PROVIDERS: PCP Nurse Practitioner Family; Visit Provider Internal Medicine Cardiovascular Disease
DX: I48.0 Paroxysmal atrial fibrillation (principal)
CPT/HCPCS: 93306

== ENCOUNTER → 2025-04-18 14:47 | Outpatient (BNV) | payer MEDICARE, OTHER, SELFPAY | PROVIDERS: PCP Nurse Practitioner Family; Visit Provider Internal Medicine Cardiovascular Disease | DX: I48.0 Paroxysmal atrial fibrillation (principal); R93.1 Abnormal findings on diagnostic imaging of heart and coronary circulation | CPT/HCPCS: 93306 ==

== ENCOUNTER 2025-04-29 10:57 | Outpatient (REF) | payer MEDICARE, OTHER, SELFPAY ==
[2025-04-30 21:28] LABS: Prot Elec - Albumin 4.0 g/dL (3.8-4.8); Prot Elec - Alpha1 0.3 g/dL (0.2-0.3); Prot Elec - Alpha2 0.7 g/dL (0.5-0.9); Prot Elec - Beta 1 0.4 g/dL (0.4-0.6); Prot Elec - Beta 2 0.3 g/dL (0.2-0.5); Prot Elec - Gamma 0.9 g/dL (0.8-1.7); Prot Elec - Total Protein 6.6 g/dL (6.1-8.1)
[2025-05-02 16:44] LABS: Kappa, Serum 180 mg/dL (176-443); Kappa/Lambda Ratio, Serum 1.78 (1.29-2.55); Lambda, Serum 101 mg/dL (91-240)
== END 2025-04-29 10:58 | disposition home or self-care (01) ==
LOC: HO.LAB 10:57
PROVIDERS: PCP Family Medicine; Visit Provider Internal Medicine Cardiovascular Disease
DX: I48.0 Paroxysmal atrial fibrillation (principal); I51.7 Cardiomegaly; Z79.899 Other long term (current) drug therapy
CPT/HCPCS: 36415; 83883; 84165; 93005; 99212

== ENCOUNTER 2025-04-29 10:57 | Outpatient (AMB) | payer MEDICARE, OTHER, SELFPAY ==
--- NOTE | 2025-04-29 11:00 | MHC.OFFVIS ---
Vital Signs 04/29/25 11:01 Height 5 ft 6 in Weight 167 lb 8.821 oz BMI 27.0 BP 110/70 Blood Pressure Location Lt brachial Position Sitting Pulse 77 Intake Visit Reasons: 1 yr f/up s/p echo Intake Note: 1 year follow-up with ekg after echo feeling good having PRP injection next month Obiee Obia Solution Architect Required: No Allergies No Known Allergies (No Known Allergies*) Allergy (Verified 04/09/25 13:56) Medication List - Last Reconciled 04/29/25 by Brandt Correia MD acetaminophen 1,000 mg PO TID apixaban (Eliquis) 5 mg PO BID atorvastatin 20 mg PO DAILY cholecalciferol (vitamin D3) 25 mcg PO DAILY clonazepam mg PO dextroamphetamine-amphetamine 10 mg ER 1 cap PO QAM gabapentin 100 mg PO BEDTIME hydroxyzine pamoate 25 mg PO BEDTIME melatonin 9 mg PO BEDTIME metoprolol succinate ER 50 mg PO DAILY [Neoprene wrist sleeve As directed] pantoprazole 40 mg PO DAILY@0630 prazosin 5 mg PO BEDTIME solifenacin 10 mg PO DAILY tizanidine 2 mg PO TID PRN 30 days venlafaxine ER 150 mg PO DAILY walker Rollator walker with seat and breaks walker Folding Front wheeled walker HPI Comments Details: Lucita comes for follow-up. Has had no prolonged episodes of atrial fibrillation. She recently had a shoulder injection and then had a prolonged withholding of her Eliquis therapy. She complains of fatigue and tiredness with exertion. She denies any shortness of breath, orthopnea, PND, leg edema. She has no lightheadedness, syncope. Recently had an echocardiogram which shows normal LV ejection fraction but moderately increased LV wall thickness. She does have some balance issues. No obvious neuropathic symptoms PFSH Medical History Gait apraxia Arthritis of left knee Gait disturbance HTN (hypertension) Osteoarthritis IBS (irritable bowel syndrome) Major depression, recurrent, chronic Vitamin D deficiency Abnormal gait Pure hypercholesterolemia Severe major depression without psychotic features Hx of basal cell carcinoma Osteopenia Paroxysmal atrial fibrillation Surgical History History of esophagogastroduodenoscopy (EGD) Hx of colonoscopy Hx of breast biopsy Hx of hysterectomy Hx of appendectomy Family History Father No problems noted. Mother No problems noted. 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) Comment: aware of trip hazard Patient Tobacco Use Status: Former Tobacco user Tobacco use type: Cigarette Advance Directives Date on File: 11/11/21 service: No Current occupational status: retired Current occupation: rt handed Review of Systems Const Denies chills, Denies fatigue, Denies fever(s), Denies frequent falls, Denies weakness, Denies weight gain and Denies weight loss ENT Denies dizziness Card Denies chest pain, Denies leg edema, Denies lightheadedness, Denies palpitations, Denies dyspnea, Denies dyspnea on exertion, Denies orthopnea and Denies other (loss of consciousness) Resp Denies cough, Denies dyspnea and Denies dyspnea on exertion GI Denies hematochezia and Denies change in stool character Musc Denies abnormal gait, Denies muscle weakness, Denies numbness, Denies radiating pain into limb and Denies tingling Neuro Denies abnormal gait, Denies dizziness, Denies frequent falls, Denies numbness, Denies tingling and Denies weakness Endo Denies fatigue and Denies palpitations Physical Exam Vital Signs: Last Vital Signs Pulse 77 04/29/25 11:01 BP 110/70 04/29/25 11:01 BMI result Body Mass Index 27.0 Const General: cooperative, healthy appearing, comfortable and no acute distress Orientation/consciousness: patient oriented x3 Neck Neck: Yes normal visual inspection Resp Effort & Inspection: normal respiratory effort Auscultation: clear to auscultation bilaterally, no crackles, no rales, no rhonchi and no wheezes Cardio Jugular venous distension: no JVD Rate: regular rate Rhythm: regular rhythm Heart sounds: S1 normal heart sound present, S2 normal heart sound present, no murmurs and no rubs Neuro General: patient oriented x3 Extrem General: Yes normal to inspection, No no pedal edema and No calf tenderness Psych Appearance: grossly normal Mental Status: mental status grossly normal Speech and movement: Normal speech and movement present Office Procedures EKG Details: EKG shows normal sinus rhythm with septal infarct pattern on EKG with no clear suggestive of LVH or repolarization abnormality [id number], Complete Assessment & Plan Assessment & Plan (1) Paroxysmal atrial fibrillation: Code(s): I48.0 - Paroxysmal atrial fibrillation Category: Medical Plan: Paroxysmal atrial fibrillation in this elderly woman without any obvious clinical recurrence on current medical therapy with metoprolol. She has done very well. Continue to avoid stimulants. Stress mitigation strategies were discussed. Continue metoprolol therapy. Will continue pursue rhythm control approach which has helped him significantly. No indication for antiarrhythmic drug therapy. Importance of oral anticoagulation therapy to reduce risk of thromboembolic complication was discussed in details again. Semi annual renal function test in LDL CBC should be checked. See below (2) LVH (left ventricular hypertrophy): Code(s): I51.7 - Cardiomegaly Category: Medical Plan: Patient noted to have at least moderate lead increase LV wall thickness on echocardiogram with well controlled blood pressure for many years. Her EKG voltage also does not appear to be significantly increase in suggest LV repolarization abnormality. Infiltrative cardiac disorder such as amyloidosis need to be ruled out. Will suggest her to have serum and urine test for light chain amyloidosis possibility and also suggest a PYP scan to rule out ATTR type of amyloidosis. This was discussed with her. Continue aggressive blood pressure control. She has no signs or symptoms of heart failure at this point time. Will follow up in the clinic in 1 year's time, sooner p.r.n.. Thank you for allowing me to partake in her care Orders: Orders [place]/Lambda Light Chain Serum Today I51.7 - Cardiomegaly Protein Electrophoresis, Serum Today I51.7 - Cardiomegaly NM PYP Card Amyld SPECT w CT 1 Week I48.0 - Paroxysmal atrial fibrillation, I51.7 - Cardiomegaly Protein Electrophoresis,Ran Ur Today I51.7 - Cardiomegaly Coding Level of Care Code Est Pt Level 4 (36827) Complex EM visit Add On G2211 Diagnoses Paroxysmal atrial fibrillation I48.0 LVH (left ventricular hypertrophy) I51.7 CPT Codes EKG - CPT: 86978-[id number], Complete ([id number])
[2025-04-29 11:01] VITALS: BP 110/70; PULSE 77; BMI 27.0
--- OUTSIDE RECORDS SUMMARY | 2025-04-29 11:50 | XMS_ITS | Clinical Summary ---
Author Organization [facility] Address [address] [address] Phone Care Team Providers Care Well Drill Operator Cable Tool Name Role Phone Caitlyn Swanson NP Primary [...] Description 02/25/2026 10:10 AM EDT Office Visit [facility] Rheumatology [address] [place] [address] Brianne Curtis MD, MPH 22 [facility], [facility] [address] [place] [address] [email or web address] Health Maintenance Due Date Last Done Comments [...] topic Medical Devices Not on file Insurance [address] [place], [place] [address]O MEDICARE PART A & B [facility] & [facility] A & [facility] & B [facility] MEDIC[facility] PART A & B [facility] MED[facility] PART A & B [facility] MED[facility] PART A & B Member Subscriber Plan / Payer (Ef fective 2015-Present) Name:Lucita Parekh Member ID:[id number] Relation to Subscriber:Self Name:Lucita Parekh Subscriber ID:[id number] Payer ID:[id number] Group ID:Not on file Type:Medicare Address: [employer] [address] [place] [address] [facility] [place] [id number] Advance Directives For more information, please contact: [phone] (9AM - 5PM [facility], Monday-Monday) * Full Code (Presumed) (Latest Code Status on File) Date Activated Date Inactivated Comments 02/09/2018 11:50 PM 02/14/2018 1:55 PM Care Teams Well Drill Operator Cable Tool Relationship Specialty Start Date End Date Caitlyn Swanson NP [address] [place] [address] PCP - General Nurse Practitioner 12/19/24 Additional Source Comments The information contained in this document represents components of the legal health record. It is not the complete legal health record.[facility]
--- OUTSIDE RECORDS SUMMARY | 2025-04-29 11:50 | XMS_ITS | Patient Health Record ---
Author Organization [facility] Address [address] [place] [address] Care Team Providers Care Wound Care Nurse Name Role Phone Hilda KYLE, Nallely Primary Care Provider Kaye martinsyaniraBETO Ling Unavailable [phone] Reason For Referral No Information Medications Medication [...] Status Risk Notes Problem Right shoulder pain (7697327278) Right shoulder pain (M25.511) Active confirmed Problem Left shoulder pain (9845060127) Left shoulder pain (M25.512) Active confirmed Problem Abnormal gait (03405414) Balance disorder (R26.89) Active confirmed Problem Right anterior knee pain (M25.561) Active confirmed Problem Localized, primary osteoarthritis of the hand (844363728) Osteoarthritis of carpometacarpal (CMC) joint of both thumbs (M18.0) Active confirmed Problem Localized, primary osteoarthritis of the hand (357876024) Arthritis of carpometacarpal (CMC) joint of both thumbs (M18.0) Active confirmed Plan Of Treatment Next Appt Details Provider Name:BETO LAM, 05/14/2025 03:00:00 PM, [address] [place] [address], [id number], Insurance Providers Payer Name Payer Address Payer Phone Subscriber Number Group Number Insured Name Patient Relationship to Insured Coverage Start Date Coverage End Date Medicare [address] [place] [address] [id number] Lucita Young Self - patient is the insured [facility] [address] [place] [address] [id number] Lucita Young Self - patient is the insured Medications Administered Medication Instructions Date of Administration Dosage Notes AspInj Large Joint Bursa UGI 04/28/2023 AspInj Small Joint Bursa 04/18/2023 Celestone 04/18/2023 6 mg Celestone 04/28/2023 3 mg Medical (General) History Medical History History ICD Code anxiety attention problems depression osteoprosis Surgical History Surgery Date(Month/Year) appendix removed Right [facility] 11/02/2021
--- OUTSIDE RECORDS SUMMARY | 2025-04-29 11:50 | XMS_ITS | Clinical Summary ---
Author Organization [address] Address [address] [place] [phone] Phone Care Team Providers Care Speech Therapist Name Role Phone Luca Thibodeaux MD Primary [...] chronic (CMS/HCC V2 4) 12/23/2013 Overview (08/30/2024): [place] admission 09/2016, 05/2017, [facility] Admission 08/2017 [...] WNL APPENDECTOMY 01/2020 PROCEDURE: HISTORICAL APPENDECTOMY; COMMENT: [place] COLONOSCOPY 09/11/2020 PROCEDURE: HISTORICAL COLONOSCOPY; COMMENT: Minimal diverticulosis; 3 mm cecal polyp: Tubular adenoma. APPENDECTOMY PROCEDURE: [place] APPENDECTOMY Medical History Medical History Date Comments Irritable bowel syndrome DX:Irri table bowel syndrome; COMMENT: EGD, Colonoscopy (-)08/06/01 Lumbosacral spondylosis with out myelopathy DX:Lumbosacral spondylosis w ithout myelopathy Generalized osteoarthrosis, involving hand DX:Generalized osteoarthrosi s, involving hand Dermatophytosis of foot DX:[place] tophytosis of foot Iron deficiency anemia secon [...] DX:Major depression, recurre nt, chronic (HCC); COMMENT: [place] admission 09/2016, 05/2017, [facility] Admission 08/2017 [...] Last Done Comments Falls Risk Assessment 08/13/2022 Medicare Annual Wellness Visit 08/13/2022 Social Influencers of Health Screening 08/13/2022 Depression Screening 09/04/2024 COVID-19 Vaccine (7 - [...] is recommended in 1 year. MAMMO LOCATION: [facility], [address] [place] [address], [facility], . -------- FINAL REPORT -------- Dictated By: Domitila Joshua Dictated Date: 08/09/2024 15:18 ET Assigned Physician: Domitila Joshua Reviewed and Electronically Signed By: Domitila Joshua Signed Date: 08/09/2024 15:19 ET Workstation ID: [id number] Transcribed By: Self Edit Transcribed Date: 08/09/2024 [...] is recommended in 1 year. MAMMO LOCATION: [facility], [address] [place] [address], [address], . -------- FINAL REPORT -------- Dictated By: Domitila Joshua Dictated Date: 08/09/2024 15:18 ET Assigned Physician: Domitila Joshua Reviewed and Electronically Signed By: Domitila Joshua Signed Date: 08/09/2024 15:19 ET Workstation ID: [id number] Transcribed By: Self Edit Transcribed Date: 08/09/2024 15:18 ET Caitlyn Swanson NP IMG BI PROCEDURES Final Result * Hepatitis C Screening (09/15/2022) Pathologist [facility] Hepatitis C Screening Abstracted Historical [...] (World Health Organization Fracture Risk Assessment) [facility] Department of Internal Medicine recommends [...] (World Health Organization Fracture Risk Assessment) [facility] Department of Internal Medicine recommendsusing [...] risk by FRAX. us Ena Egan MD [facility] DXA PROCEDURES Final Res ult * Hm Colonoscopy (09/11/2020) Colonoscopy No interpretation , Abstracted Anatomical Region Laterality Modality Other Historical Provider HEALTH MAINTENANCE Final Result from Last 3 Months or Most Recently Relevant to Health Maintenance Insurance MEDICARE [facility] [address] [place] [address] Care Teams Speech Therapist Relationship Specialty Start Date End Date Luca Thibodeaux MD [address] [place] [address] PCP - General Internal Medicine 01/10/22
== END 2025-04-29 11:41 | disposition home or self-care (01) ==
LOC: HO.HCS 10:57
PROVIDERS: PCP Nurse Practitioner Family; Visit Provider Internal Medicine Cardiovascular Disease
DX: I48.0 Paroxysmal atrial fibrillation (principal); I51.7 Cardiomegaly
CPT/HCPCS: 93010; 99214; G2211

== ENCOUNTER 2025-04-30 15:26 | Outpatient (REF) | payer MEDICARE, OTHER, SELFPAY ==
--- OUTSIDE RECORDS SUMMARY | 2025-04-30 16:41 | XMS_ITS | Encounter Summary ---
Author Organization [facility] Address [address] [place] [address] Care Team Providers Care Antisqueak Chalker Name Role Phone Ena Egan MD Primary Care Provider Travis Rg MD Primary Care Provider Unavail Sally Jasmine MD Primary Care Provider Luca Bolanos Primary Care Provider [facility], Pcp Primary Care Provider Christy weiss Encounter Details Date Type Department Care Team Description 08/06/2017 Hospital Medical Records [address] [place] [address] Social History Tobacco Use Types Packs/Day Years [...] on filedocumented in this encounter Care Teams Antisqueak Chalker Relationship Specialty Start Date End Date Ena Egan MD PCP - General Internal Medicine 08/03/11 02/17/21 Travis Hansen MD PCP - General Internal Medicine 02/18/21 06/06/21 Sally Stewart MD PCP - General Internal Medicine 06/07/21 01/09/22 Luca Thibodeaux [address] [place] [address] PCP - General Internal Medicine 01/10/22 04/23/23 [facility], Pcp [address] [place] [address] PCP - General Internal Medicine 04/24/23 documented as of this encounter
--- OUTSIDE RECORDS SUMMARY | 2025-04-30 16:41 | XMS_ITS | Encounter Summary ---
Author Organization [facility] Address [address] [place] [address] Care Team Providers Care Header Machine Operator Name Role Phone Ena Egan MD Primary Care Provider Travis Rg MD Primary Care Provider Unavail Sally Jasmine MD Primary Care Provider Luca Bolanos Primary Care Provider [phone] [facility] Pcp Primary Care Provider Unavaildawn Encounter Details Date Type Department Care Team Description 06/03/2019 Improvement Specialist Report Medical Records [address] [place] [address] Brandt Correia MD Social History Tobacco Use [...] on filedocumented in this encounter Care Teams Header Machine Operator Relationship Specialty Start Date End Date Ena Egan MD PCP - General Internal Medicine 08/03/11 02/17/21 Travis Hansen MD PCP - General Internal Medicine 02/18/21 06/06/21 Sally Stewart MD PCP - General Internal Medicine 06/07/21 01/09/22 Luca Thibodeaux [address] [place] [address] PCP - General Internal Medicine 01/10/22 04/23/23 [facility], Pcp [address] [place] [address] PCP - General Internal Medicine 04/24/23 documented as of this encounter
--- OUTSIDE RECORDS SUMMARY | 2025-04-30 16:41 | XMS_ITS | Encounter Summary ---
Author Organization [facility] Address [address] [place] [address] Care Team Providers Care Unit Controller Name Role Phone Ena Egan MD Primary Care Provider Travis Rg MD Primary Care Provider UnavailSally Hutton MD Primary Care Provider Luca Bolanos Primary Care Provider [phone] [facility], Pcp Primary Care Provider Unavailabl e Reason for Visit * Reason Onset Date Comments Faxed Refill 12/23/2020 Encounter Details Date Type Department Care Team Description 12/23/2020 Refill Adult Medicine [address] [address] Ena Egan MD Faxed Refill Social History Tobacco Use Types Packs/Day Years [...] Telephone Encounter - Socorro Holland M.A. - 12/23/2020 10:21 AM EDT Lab Results Component Value Date NA 139 04/08/2019 K 4.7 04/08/2019 CO2 29 04/08/2019 CL 106 04/08/2019 BUN 20 04/08/2019 CREAT 0.70 04/08/2019 GLU 90 04/08/2019 CA 10.0 04/08/2019 GFR > 60 04/08/2019 * Telephone Encounter - Kelley Crenshaw - 12/23/2020 10:01 AM EDT Patient would like script to be: E-PRESCRIBED/FAXED TO PHARMACY WHEN WAS THE PATIENT'S LAST APPOINTMENT IN ADULT MEDICINE? 10/16/2020 WHEN WAS THE LAST TIME THE PATIENT SAW THEIR PCP? 06/15/2021 Does patient have an upcoming appointment? Yes 01/04/2021 (THE MEDICATION REQUESTED IS ON THE MED [...] / Plan[place] / Product Type: MEDICARE [id number] documented in this encounter Plan of Treatment Not on file documented as of this encounter Visit Diagnoses Not on filedocumented in this encounter Care Teams Unit Controller Relationship Specialty Start Date End Date Ena Egan MD PCP - General Internal Medicine 08/03/11 02/17/21 Travis Hansen MD PCP - General Internal Medicine 02/18/21 06/06/21 Sally Stewart MD PCP - General Internal Medicine 06/07/21 01/09/22 Luca Thibodeaux [address] [place] [address] PCP - General Internal Medicine 01/10/22 04/23/23 [facility], Pcp [address] [place] [address] PCP - General Internal Medicine 04/24/23 documented as of this encounter
--- OUTSIDE RECORDS SUMMARY | 2025-04-30 16:41 | XMS_ITS | Encounter Summary ---
Author Organization [facility] Address [address] [place] [address] Care Team Providers Care Central Office Worker Name Role Phone Ena Egan MD Primary Care Provider Travis Rg MD Primary Care Provider Unavail Sally Jasmine MD Primary Care Provider Luca Bolanos Primary Care Provider [phone] [facility], Pcp Primary Care Provider Christy weiss Encounter Details Date Type Department Care Team Description 10/06/2017 Release of Information Medical Records [address] [place] [address] Abstract, Provider Social History Tobacco Use Types [...] on filedocumented in this encounter Care Teams Central Office Worker Relationship Specialty Start Date End Date Ena Egan MD PCP - General Internal Medicine 08/03/11 02/17/21 Travis Hansen MD PCP - General Internal Medicine 02/18/21 06/06/21 Sally Stewart MD PCP - General Internal Medicine 06/07/21 01/09/22 Luca Thibodeaux [address] [place] [address] PCP - General Internal Medicine 01/10/22 04/23/23 [facility], Pcp [address] [place] [address] PCP - General Internal Medicine 04/24/23 documented as of this encounter
--- OUTSIDE RECORDS SUMMARY | 2025-04-30 16:41 | XMS_ITS | Encounter Summary ---
Author Organization [facility] Address [address] [place] [address] Care Team Providers Care Principal Examiner Name Role Phone Ena Egan MD Primary Care Provider Travis Rg MD Primary Care Provider Unavail Sally Jasmine MD Primary Care Provider Luca Bolanos Primary Care Provider [phone] [facility] Pcp Primary Care Provider Christy weiss Encounter Details Date Type Department Care Team Description 02/28/2018 Face Man Report Medical Records [address] [place] [address] Social History Tobacco Use Types Packs/Day Years [...] on filedocumented in this encounter Care Teams Principal Examiner Relationship Specialty Start Date End Date Ena Egan MD PCP - General Internal Medicine 08/03/11 02/17/21 Travis Hansen MD PCP - General Internal Medicine 02/18/21 06/06/21 Sally Stewart MD PCP - General Internal Medicine 06/07/21 01/09/22 Luca Thibodeaux [address] [place] [address] PCP - General Internal Medicine 01/10/22 04/23/23 [facility], Pcp [address] [place] [address] PCP - General Internal Medicine 04/24/23 documented as of this encounter
--- OUTSIDE RECORDS SUMMARY | 2025-04-30 16:41 | XMS_ITS | Encounter Summary ---
Author Organization [facility] Address [address] [place] [address] Care Team Providers Care Counter Person Name Role Phone Travis Hansen MD Primary Care Provider Sally Kim MD Primary Care Provider Luca Bolanos Primary Care Provider [phone] [facility], [facility] Primary Care Provider Christy weiss Encounter Details Date Type Department Care Team Description 03/17/2021 Pt. Non Urgent Medic al Question Adult Medicine [address] [address] Travis Hansen MD Social History Tobacco Use [...] 03/17/2021 3:32 PM EDT Subject: X-rays from [facility], I do not see the 2 sets of x-rays I had taken at the [facility] recently. They were taken in the ED, on 2 separate occasions. [facility] First set [facility] [...] a permanent cast was put on. Does [facility] send you this kind of info for your records? Lucita documented in this encounter Plan of Treatment Not on file documented as of this encounter Visit Diagnoses Not on filedocumented in this encounter Care Teams Counter Person Relationship Specialty Start Date End Date Travis Hansen MD PCP - General Internal Medicine 02/18/21 06/06/21 Sally Stewart MD PCP - General Internal Medicine 06/07/21 01/09/22 Luca Thibodeaux [address] [place] [address] PCP - General Internal Medicine 01/10/22 04/23/23 Wolf Schaffer [address] [place] [address] PCP - General Internal Medicine 04/24/23 documented as of this encounter
--- OUTSIDE RECORDS SUMMARY | 2025-04-30 16:41 | XMS_ITS | Encounter Summary ---
Author Organization [facility] Address [address] [place] [address] Care Team Providers Care Infectious Disease Physician Name Role Phone Ena Egan MD Primary Care Provider Travis Rg MD Primary Care Provider Unavail Sally Jasmine MD Primary Care Provider Luca Bolanos Primary Care Provider [phone] [facility], Pcp Primary Care Provider Christy weiss Encounter Details Date Type Department Care Team Description 02/07/2020 SCAN Medical Records [address] [place] [address] Abstract, Provider Social History Tobacco Use Types [...] on filedocumented in this encounter Care Teams Infectious Disease Physician Relationship Specialty Start Date End Date Ena Egan MD PCP - General Internal Medicine 08/03/11 02/17/21 Travis Hansen MD PCP - General Internal Medicine 02/18/21 06/06/21 Sally Stewart MD PCP - General Internal Medicine 06/07/21 01/09/22 Luca Thibodeaux [address] [place] [address] PCP - General Internal Medicine 01/10/22 04/23/23 [facility], Pcp [address] [place] [address] PCP - General Internal Medicine 04/24/23 documented as of this encounter
--- OUTSIDE RECORDS SUMMARY | 2025-04-30 16:41 | XMS_ITS | Encounter Summary ---
Author Organization [facility] Address [address] [place] [address] Care Team Providers Care Dental Instrument Maker Name Role Phone Ena Egan MD Primary Care Provider Travis Rg MD Primary Care Provider UnavailSally Hutton MD Primary Care Provider Luca Bolanos Primary Care Provider [phone] [facility] Pcp Primary Care Provider Unavailabl e Reason for Visit * Reason Comments E-prescribe Rx Request Encounter Details Date Type Department Care Team Description 10/05/2020 Refill Adult Medicine [address] [address] Ramses Grubbs PA-C [address] [place] [phone] E-prescribe Rx Request Social History Tobacco Use [...] an upcoming appointment? No-unable to reach left [facility] to call for appointment due to refill [...] N/A Patients current insurance carrier is: Payor: [employer]ICARE-[employer] / Plan: [employer] / Product Type: MEDICARE [id number] documented in this encounter Plan of Treatment Not on file documented as of this encounter Visit Diagnoses Not on filedocumented in this encounter Care Teams Dental Instrument Maker Relationship Specialty Start Date End Date Ena Egan MD PCP - General Internal Medicine 08/03/11 02/17/21 Travis Hansen MD PCP - General Internal Medicine 02/18/21 06/06/21 Sally Stewart MD PCP - General Internal Medicine 06/07/21 01/09/22 Luca Thibodeaux [address] [place] [address] PCP - General Internal Medicine 01/10/22 04/23/23 Wolf Schaffer [address] [place] [address] PCP - General Internal Medicine 04/24/23 documented as of this encounter
--- OUTSIDE RECORDS SUMMARY | 2025-04-30 16:41 | XMS_ITS | Encounter Summary ---
Author Organization [facility] Address [address] [place] [address] Care Team Providers Care Process Safety Management Engineer Name Role Phone Luca Thibodeaux Primary Care Provider [phone] [facility], Pcp Primary Care Provider [facility] e Encounter Details Date Type Department Care Team Description 09/16/2022 Telephone [facility] [address] [facility] [address] [place] [phone] Lani Richey APRN Social History Tobacco Use [...] In the last 10 days, have amanda arreola been in contact with someone who was confirmed or suspected to have Coronavirus/COVID-19? No / Unsure 09/15/2022 12:10 PM EST documented as of this encounter Miscellaneous Notes * Telephone Encounter - Isabel Torres - 09/16/2022 3:35 PM EST Lucita called in trying to book a new appt for her euflexxa injection since she canceled her first appt . She stats she leaving stat on the and her 2nd shot is scheduled for the 25 so that does not leave enough time to book for the 3rd injection. Not sure what to do at this point. She might miss her last injection. documented in this encounter Plan of Treatment Not on file documented as of this encounter Visit Diagnoses Not on filedocumented in this encounter Care Teams Process Safety Management Engineer Relationship Specialty Start Date End Date Luca Thibodeaux [address] [place] [address] PCP - General Internal Medicine 01/10/22 04/23/23 [facility], [address] [address] PCP - General Internal Medicine 04/24/23 documented as of this encounter
--- OUTSIDE RECORDS SUMMARY | 2025-04-30 16:41 | XMS_ITS | Encounter Summary ---
Author Organization [facility] Address [address] [place] [address] Care Team Providers Care Warehouse Loader Name Role Phone [facility], Pcp Primary Care Provider Unavailabl e Encounter Details Date Type Department Care Team Description 10/30/2023 Internet Sales Associate Report Medical Records [address] [place] [address] Ja Montesinos Social History Tobacco Use Types [...] on filedocumented in this encounter Care Teams Warehouse Loader Relationship Specialty Start Date End Date [facility], Pcp PCP - General Internal Medicine 04/24/23 documented as of this encounter
--- OUTSIDE RECORDS SUMMARY | 2025-04-30 16:41 | XMS_ITS | Encounter Summary ---
Author Organization [facility] Address [address] [place] [address] Care Team Providers Care Advanced Quality Engineer Name Role Phone Luca Thibodeaux Primary Care Provider [phone] [facility], Pcp Primary Care Provider Unavailabl e Reason for Visit * Reason Onset Date Comments bruises 05/10/2022 Encounter Details Date Type Department Care Team Description 05/10/2022 Pt. Non Urgent Medical Question Adult Medicine [address] [address] Luca Thibodeaux [address] [place] [address] Social History Tobacco Use Types Packs/Day Years [...] encounter Miscellaneous Notes * Telephone Encounter - iTffany Stewrat M.A. - 05/11/2022 7:21 AM EDTFrom: Lucita [...] on filedocumented in this encounter Care Teams Advanced Quality Engineer Relationship Specialty Start Date End Date Luca Thibodeaux [address] [place] [address] PCP - General Internal Medicine 01/10/22 04/23/23 [facility], [facility] [place] [address] PCP - General Internal Medicine 04/24/23 documented as of this encounter
--- OUTSIDE RECORDS SUMMARY | 2025-04-30 16:41 | XMS_ITS | Encounter Summary ---
Author Organization [facility] Address [address] [place] [address] Care Team Providers Care Skin Washer Name Role Phone Ena Egan MD Primary Care Provider Travis Rg MD Primary Care Provider Unavail Sally Jasmine MD Primary Care Provider Luca Bolanos Primary Care Provider [phone] [facility] Pcp Primary Care Provider Unavaildawn Encounter Details Date Type Department Care Team Description 05/29/2018 Loan Consultant Report Medical Records [address] [place] [address] Brandt Correia MD Social History Tobacco Use [...] on filedocumented in this encounter Care Teams Skin Washer Relationship Specialty Start Date End Date Ena Egan MD PCP - General Internal Medicine 08/03/11 02/17/21 Travis Hansen MD PCP - General Internal Medicine 02/18/21 06/06/21 Sally Stewart MD PCP - General Internal Medicine 06/07/21 01/09/22 Luca Thibodeaux [address] [place] [address] PCP - General Internal Medicine 01/10/22 04/23/23 [facility], Pcp [address] [place] [address] PCP - General Internal Medicine 04/24/23 documented as of this encounter
--- OUTSIDE RECORDS SUMMARY | 2025-04-30 16:41 | XMS_ITS | Encounter Summary ---
Author Organization [facility] Address [address] [place] [address] Care Team Providers Care Senior Architect/Design Manager Name Role Phone Luca Thibodeaux Primary Care Provider [phone] [facility], [facility]cp Primary Care Provider Unavailabl e Reason for Referral * Non [facility] (Urgent) - Closed Specialty Diagnoses / Procedures Referred By Contmanoj t Referred To Contact HAND SURGEON / Orthopedic Procedures REFERRAL TO HAND SURGEON Luca Thibodeaux [address] [place] [address] Kanika Tapia MD [address] [place] [address] Referral ID Status Reason Start Date Expiration Date Visits Re quested Visits Authorized [id number] Closed 12/23/2022 12/23/2023 1 1 Encounter Details Date Type Department Care Team Description 12/23/2022 Pt. Non Urgent Medical Question Adult Medicine [address] [address] Luca Thibodeaux [address] [place] [address] Social History Tobacco Use Types Packs/Day Years [...] encounter Miscellaneous Notes * Telephone Encounter - Jeanine Seo M.A. - 12/23/2022 9:30 AM EDTFrom: Lucita Parekh To: Neelam Thibodeaux Sent: 12/23/2022 9:28 AM EDT Subject: Injury to left hand December 08 [facility], On December 08 I slipped and fell while at my cottage in [place], [place]. The left side of my body took thebrunt of impact as I fell into the corner of my fireplace. My left hand was in extreme pain. NEW ACCOUNT INTERVIEWER responded and checked for injuries. My wrist was the only obvious injury. They iced it and told me to go to Urgent Care. The next day I went to the Urgent Care in [place]. They took 3 x-rays and reported a Triquetral fracture and suggested scapholunate ligament injury, and other things. They braced it and said they'd fax the Final Report to you folks. Did you receive the report? I also have a CD of the x-rays. I returned here on December 22 and went to the [facility]. They took x-rays, which showed ligament damage . They stated the results would be sent to you, They recommended I see my orthopedic hand doctor LIBBY. Lani Richey, [address] [place] [address] is my orthopedic PA who has treated me for previous wrist injuries.I would appreciate a referral to see her. Any questions please call. Thank you, Lucita documented in this encounter Plan of Treatment Not on file documented as of this encounter Visit Diagnoses Not on filedocumented in this encounter Care Teams Senior Architect/Design Manager Relationship Specialty Start Date End Date Luca Thibodeaux [address] [place] [address] PCP - General Internal Medicine 01/10/22 04/23/23 [facility] Pcp [address] [place] [address] PCP - General Internal Medicine 04/24/23 documented as of this encounter
--- OUTSIDE RECORDS SUMMARY | 2025-04-30 16:41 | XMS_ITS | Clinical Summary ---
Author Organization [facility] Address [address] [facility] [address] [place] [address] Phone Care Team Providers Care Package Line Relief Operator Name Role Phone Caitlyn Swanson NP Primary Care Provider [phone] Allergies No known active allergies Medications * [...] Description 02/25/2026 10:10 AM EDT Office Visit [facility] Rheumatology [address] [place] [address] Brianne Curtis MD, MPH [address] [facility], [facility] [address] [place] [address] [email or web address] Health Maintenance Due [...] topic Medical Devices Not on file Insurance [address] [place], [place] [address]O MEDICARE PART A & B [facility] PART A & B [facility] MEDICARE PART A & B [facility] MEDICARE PART A & B [facility] & B [facility] A & B [facility] PART A & B Member Subscriber Plan / Payer (Ef fective 2015-Present) Name:Lucita Parekh Member ID:[id number] Relation to Subscriber:Self Name:Lucita Parekh Subscriber ID:[id number] Payer ID:[id number] Group ID:Not on file Type:Medicare Address: [employer] [address] [place] [address] [facility] HMO [place] [id number] Advance Directives For more information, please contact: [phone] (9AM - 5PM [facility], Monday-Monday) * Full Code (Presumed) (Latest Code Status on File) Date Activated Date Inactivated Comments 02/09/2018 11:50 PM 02/14/2018 1:55 PM Care Teams Package Line Relief Operator Relationship Specialty Start Date End Date Caitlyn Swanson NP [address] [place] [address] PCP - General Nurse Practitioner 12/19/24 Additional Source Comments The information contained in this document represents components of the legal health record. It is not the complete legal health record.[facility]
--- OUTSIDE RECORDS SUMMARY | 2025-04-30 16:41 | XMS_ITS | Encounter Summary ---
Author Organization [facility] Address [address] [place] [address] Care Team Providers Care Ambulance Officer Name Role Phone Luca Thibodeaux Primary Care Provider [phone] [facility], Pcp [facility] Encounter Details Date Type Department Care Team Description 10/26/2022 Pt. Non Urgent Medical Question Adult Medicine [address] [address] Luca Thibodeaux [address] [place] [address] Social History Tobacco Use Types Packs/Day Years [...] suspected to have Coronavirus/COVID-19? No / Unsure 10/27/2022 2:59 PM EST documented as of this encounter Miscellaneous Notes * Telephone Encounter - Tiffany Stewart M.A. - 10/26/2022 9:56 AM ESTFrom: Lucita Parekh To: Neelam Thibodeaux Sent: 10/26/2022 9:00 AM EST Subject: Dr berny DOMINGUEZ I now have both shingrix shots. Lucita documented in this encounter Plan of Treatment Not on file documented as of this encounter Visit Diagnoses Not on filedocumented in this encounter Care Teams Ambulance Officer Relationship Specialty Start Date End Date Luca Thibodeaux [address] [place] [address] PCP - General Internal Medicine 01/10/22 04/23/23 [facility], [facility] [place] [address] PCP - General Internal Medicine 04/24/23 documented as of this encounter
--- OUTSIDE RECORDS SUMMARY | 2025-04-30 16:41 | XMS_ITS | Encounter Summary ---
Author Organization [facility] Address [address] [place] [address] Care Team Providers Care Enterprise Application Analyst Name Role Phone Ena Egan MD Primary Care Provider Travis Rg MD Primary Care Provider Sally Kim MD Primary Care Provider Luca Bolanos Primary Care Provider [phone] [facility], Pcp Primary Care Provider [facility] Encounter Details Date Type Department Care Team Description 10/04/2017 Telephone Adult Medicine [address] [address] Lauren Hernandez MD Social History Tobacco Use Types Packs/Day [...] encounter Miscellaneous Notes * Telephone Encounter - Lauren Hernandez MD - 10/04/2017 9:53 AM EST Left voice mail stating that I discussed with her physical therapist yesterday and they were concerned with her gait. MRI and referral to physiatry placed for the above reasons. Advised to follow up with myself or Dr. Egan once testing is complete. documented in this encounter Plan of Treatment Not on file documented as of this encounter Visit Diagnoses Not on filedocumented in this encounter Care Teams Enterprise Application Analyst Relationship Specialty Start Date End Date Ena Egan MD PCP - General Internal Medicine 08/03/11 02/17/21 Travis Hansen MD PCP - General Internal Medicine 02/18/21 06/06/21 Sally Stewart MD PCP - General Internal Medicine 06/07/21 01/09/22 Luca Thibodeaux [address] [place], [place] [id number] PCP - General Internal Medicine 01/10/22 04/23/23 [facility], Wolf [address] [place] [address] PCP - General Internal Medicine 04/24/23 documented as of this encounter
--- OUTSIDE RECORDS SUMMARY | 2025-04-30 16:41 | XMS_ITS | Encounter Summary ---
Author Organization [facility] Address [address] [place] [address] Care Team Providers Care Screen Printing Machine Operator Name Role Phone Ena Egan MD Primary Care Provider Travis Rg MD Primary Care Provider Unavail Sally Jasmine MD Primary Care Provider Luca Bolanos Primary Care Provider [facility], Pcp Primary Care Provider Christy Encounter Details Date Type Department Care Team Description 09/07/2012 Hospital Medical Records [address] [place] [address] Shabnam Villegas, [facility] [address] [place] [address] Social History Tobacco Use Types Packs/Day Years [...] on filedocumented in this encounter Care Teams Screen Printing Machine Operator Relationship Specialty Start Date End Date Ena Egan MD PCP - General Internal Medicine 08/03/11 02/17/21 Travis Hansen MD PCP - General Internal Medicine 02/18/21 06/06/21 Sally Stewart MD PCP - General Internal Medicine 06/07/21 01/09/22 Luca Thibodeaux [address] [place] [address] PCP - General Internal Medicine 01/10/22 04/23/23 Wolf [facility] [address] [place] [address] PCP - General Internal Medicine 04/24/23 documented as of this encounter
--- OUTSIDE RECORDS SUMMARY | 2025-04-30 16:41 | XMS_ITS | Encounter Summary ---
Author Organization [facility] Address [address] [place] [address] Care Team Providers Care General Handling Supervisor Name Role Phone Ena Egan MD Primary Care Provider Travis Rg MD Primary Care Provider Unavail Sally Jasmine MD Primary Care Provider Luca Bolanos Primary Care Provider [phone] [facility], Pcp Primary Care Provider Christy weiss Encounter Details Date Type Department Care Team Description 07/20/2018 Business Doc Medical Records [address] [place] [address] Abstract, Provider Social History Tobacco Use Types [...] on filedocumented in this encounter Care Teams General Handling Supervisor Relationship Specialty Start Date End Date Ena Egan MD PCP - General Internal Medicine 08/03/11 02/17/21 Travis Hansen MD PCP - General Internal Medicine 02/18/21 06/06/21 Sally Stewart MD PCP - General Internal Medicine 06/07/21 01/09/22 Luca Thibodeaux [address] [place] [address] PCP - General Internal Medicine 01/10/22 04/23/23 [facility], Pcp [address] [place] [address] PCP - General Internal Medicine 04/24/23 documented as of this encounter
--- OUTSIDE RECORDS SUMMARY | 2025-04-30 16:41 | XMS_ITS | Encounter Summary ---
Author Organization [facility] Address [address] [place] [address] Care Team Providers Care Electrical Linesworker Name Role Phone Ena Egan MD Primary Care Provider Travis Rg MD Primary Care Provider Sally Kim MD Primary Care Provider Luca Bolanos Primary Care Provider [phone] [facility], Pcp Primary Care Provider Unavailabl e Reason for Visit * Reason Onset Date Comments Faxed Order 11/03/2017 Encounter Details Date Type Department Care Team Description 11/03/2017 Telephone Adult [address] [address] Ena Egan MD Faxed Order Social History [...] PT, please sign and fax back to [phone]. documented in this encounter Plan of Treatment Not on file documented as of this encounter Visit Diagnoses Not on filedocumented in this encounter Care Teams Electrical Linesworker Relationship Specialty Start Date End Date Ena Egan MD PCP - General Internal Medicine 08/03/11 02/17/21 Travis Hansen MD PCP - General Internal Medicine 02/18/21 06/06/21 Sally Stewart MD PCP - General Internal Medicine 06/07/21 01/09/22 Luca Thibodeaux [address] [place] [address] PCP - General Internal Medicine 01/10/22 04/23/23 [facility] [address] [place] [address] PCP - General Internal Medicine 04/24/23 documented as of this encounter
--- OUTSIDE RECORDS SUMMARY | 2025-04-30 16:41 | XMS_ITS | Encounter Summary ---
Author Organization [facility] Address [address] [place] [address] Care Team Providers Care Electric Meter Repairer Apprentice Name Role Phone Ena Egan MD Primary Care Provider Travis Rg MD Primary Care Provider Sally Kim MD Primary Care Provider Luca Bolanos Primary Care Provider [phone] [facility], Pcp Primary Care Provider Christy weiss Encounter Details Date Type Department Care Team Description 10/10/2020 Pt. Non Urgent Medic al Question Dermatology [address] [place] [address] Dylan Bonner PA-C Social History Tobacco Use Types Packs/Day Years [...] AM EST documented as of this encounter Progress Notes * Ruma Stallworth - 10/12/2020 8:57 AM ESTFrom: Lucita Parekh To: Dylan Bonner PA-C Sent: 10/10/2020 9:06 AM EST Subject: October 13 appointment/need to reschedule Tal, I have a conflict with my Monday 9/9:45 appointment. I would like to reschedule this appointment. (Monday, Monday, , Monday mornings 9am are good) or (Monday, Monday, Monday, after 2pm). Looking forward to hearing from you. Lucita gan documented in this encounter Plan of Treatment Not on file documented as of this encounter Visit Diagnoses Not on filedocumented in this encounter Care Teams Electric Meter Repairer Apprentice Relationship Specialty Start Date End Date Ena Egan MD PCP - General Internal Medicine 08/03/11 02/17/21 Travis Hansen MD PCP - General Internal Medicine 02/18/21 06/06/21 Sally Stewart MD PCP - General Internal Medicine 06/07/21 01/09/22 Luca Thibodeaux [address] [place] [address] PCP - General Internal Medicine 01/10/22 04/23/23 [facility], Wolf [address] [place] [address] PCP - General Internal Medicine 04/24/23 documented as of this encounter
--- OUTSIDE RECORDS SUMMARY | 2025-04-30 16:41 | XMS_ITS | Clinical Summary ---
Author Organization [address] Address [address] [place] [phone] Phone Care Team Providers Care Online Services Manager Name Role Phone Luca Thibodeaux MD Primary [...] chronic (CMS/HCC V2 4) 12/23/2013 Overview (08/30/2024): [facility] admission 09/2016, 05/2017, [facility] Admission 08/2017 [...] lt breast UPPER GASTROINTESTINAL ENDOSCOPY 2013 PROCEDURE: ME UPPER GI ENDOSCOPY PERFORMED; COMMENT: normal UPPER GASTROINTESTINAL ENDOSCOPY 08/2001 PROCEDURE: ME UPPER GI ENDOSCOPY PERFORMED; COMMENT: WNL APPENDECTOMY 01/2020 PROCEDURE: HISTORICAL APPENDECTOMY; COMMENT: [facility] COLONOSCOPY 09/11/2020 PROCEDURE: HISTORICAL COLONOSCOPY; COMMENT: Minimal diverticulosis; 3 mm cecal polyp: Tubular adenoma. APPENDECTOMY PROCEDURE: ME APPENDECTOMY Medical History Medical History Date Comments Irritable bowel syndrome DX:Irri table bowel syndrome; COMMENT: EGD, Colonoscopy (-)08/06/01 Lumbosacral spondylosis with out myelopathy DX:Lumbosacral spondylosis w ithout myelopathy Generalized osteoarthrosis, involving hand DX:Generalized osteoarthrosi s, involving hand Dermatophytosis of foot DX:[place] tophytosis of foot Iron deficiency anemia secon [...] DX:Major depression, recurre nt, chronic (HCC); COMMENT: [facility] admission 09/2016, 05/2017, [facility] Admission 08/2017 [...] is recommended in 1 year. MAMMO LOCATION: [facility], [address] [place] [address], [facility], . -------- FINAL REPORT -------- Dictated By: Domitila Joshua Dictated Date: 08/09/2024 15:18 ET Assigned Physician: Domitila Joshua Reviewed and Electronically Signed By: Domitila Joshua Signed Date: 08/09/2024 15:19 ET Workstation ID: [id number] Transcribed By: Self Edit Transcribed Date: 08/09/2024 [...] is recommended in 1 year. MAMMO LOCATION: [facility], [address] [place] [address], [id number], . -------- FINAL REPORT -------- Dictated By: Domitila Joshua Dictated Date: 08/09/2024 15:18 ET Assigned Physician: Domitila Joshua Reviewed and Electronically Signed By: Domitila Joshua Signed Date: 08/09/2024 15:19 ET Workstation ID: [id number] Transcribed By: Self Edit Transcribed Date: 08/09/2024 15:18 ET Caitlyn Swanson NP IMG BI PROCEDURES Final Result * Hepatitis C Screening (09/15/2022) Pathologist [facility] Hepatitis C Screening Abstracted Historical Provider HEALTH [...] risk by FRAX. us Ena Egan MD [facility] DXA PROCEDURES Final Res ult * Hm Colonoscopy (09/11/2020) Colonoscopy No interpretation , Abstracted Anatomical Region Laterality Modality Other Historical Provider HEALTH MAINTENANCE Final Result from Last 3 Months or Most Recently Relevant to Health Maintenance Insurance [facility]ARE [facility] [address] [place] [address] Care Teams Online Services Manager Relationship Specialty Start Date End Date Luca Thibodeaux MD [address] [place] [address] PCP - General Internal Medicine 01/10/22
--- OUTSIDE RECORDS SUMMARY | 2025-04-30 16:41 | XMS_ITS | Patient Health Record ---
Author Organization [facility] Address [address] [place] [address] Care Team Providers Care Pancake Professional Name Role Phone Hilda KYLE, Nallely Primary Care Provider Kaye martinsyaniraBETO Ling Unavailable [phone] Reason For Referral No Information Medications Medication [...] Status Risk Notes Problem Right shoulder pain (4031268831) Right shoulder pain (M25.511) Active confirmed Problem Left shoulder pain (4002259251) Left shoulder pain (M25.512) Active confirmed Problem Abnormal gait (02957454) Balance disorder (R26.89) Active confirmed Problem Right anterior knee pain (M25.561) Active confirmed Problem Localized, primary osteoarthritis of the hand (459048196) Osteoarthritis of carpometacarpal (CMC) joint of both thumbs (M18.0) Active confirmed Problem Localized, primary osteoarthritis of the hand (733594494) Arthritis of carpometacarpal (CMC) joint of both thumbs (M18.0) Active confirmed Plan Of Treatment Next Appt Details Provider Name:BETO LAM, 05/14/2025 03:00:00 PM, [address] [place] [address], [phone], Insurance Providers Payer Name Payer Address Payer Phone Subscriber Number Group Number Insured Name Patient Relationship to Insured Coverage Start Date Coverage End Date Medicare [address] [place] [address] [id number] Lucita Young Self - patient is the insured [facility] [address] [place] [address] [id number] Lucita Young Self - patient is the insured Medications Administered Medication Instructions Date of Administration Dosage Notes AspInj Large Joint Bursa UGI 04/28/2023 AspInj Small Joint Bursa 04/18/2023 Celestone 04/18/2023 6 mg Celestone 04/28/2023 3 mg Medical (General) History Medical History History ICD Code anxiety attention problems depression osteoprosis Surgical History Surgery Date(Month/Year) appendix removed Right [facility] 11/02/2021
--- OUTSIDE RECORDS SUMMARY | 2025-04-30 16:41 | XMS_ITS | Encounter Summary ---
Author Organization [facility] Address [address] [place] [address] Care Team Providers Care Motor And Controls Tester Name Role Phone Ena Egan MD Primary Care Provider Travis Rg MD Primary Care Provider Unavail Sally Jasmine MD Primary Care Provider Luca Bolanos Primary Care Provider [phone] [facility], Pcp Primary Care Provider Unavaildawn weiss Encounter Details Date Type Department Care Team Description 06/26/2019 Pasta Press Operator Report Medical Records [address] [place] [id number] Sam Malik MD Social History Tobacco Use [...] on filedocumented in this encounter Care Teams Motor And Controls Tester Relationship Specialty Start Date End Date Ena Egan MD PCP - General Internal Medicine 08/03/11 02/17/21 Travis Hansen MD PCP - General Internal Medicine 02/18/21 06/06/21 Sally Stewart MD PCP - General Internal Medicine 06/07/21 01/09/22 Luca Thibodeaux [address] [place] [address] PCP - General Internal Medicine 01/10/22 04/23/23 [facility], Pcp [address] [place] [address] PCP - General Internal Medicine 04/24/23 documented as of this encounter
--- OUTSIDE RECORDS SUMMARY | 2025-04-30 16:41 | XMS_ITS | Encounter Summary ---
Author Organization [facility] Address [address] [place] [address] Care Team Providers Care Operations Trainer Name Role Phone Ena Egan MD Primary Care Provider Travis Rg MD Primary Care Provider UnavailSally Hutton MD Primary Care Provider Luca Bolanos Primary Care Provider [phone] [facility], Pcp Primary Care Provider Unavailabl e Reason for Visit * Reason Onset Date Comments Faxed Order 09/11/2017 [facility] Jacquelin quan Encounter Details Date Type Department Care Team Description 09/11/2017 Telephone Adult Medicine [address] [address] Ena Egan MD Faxed Order ([facility]) Social History Tobacco Use Types Packs/Day Years [...] encounter Miscellaneous Notes * Telephone Encounter - Pat Mena - 09/11/2017 6:34 AM EST Please review, sign and fax back notes to [facility]. documented in this encounter Plan of Treatment Not on file documented as of this encounter Visit Diagnoses Not on filedocumented in this encounter Care Teams Operations Trainer Relationship Specialty Start Date End Date Ena Egan MD PCP - General Internal Medicine 08/03/11 02/17/21 Travis Hansen MD PCP - General Internal Medicine 02/18/21 06/06/21 Sally Stewart MD PCP - General Internal Medicine 06/07/21 01/09/22 Luca Thibodeaux [address] [place] [address] PCP - General Internal Medicine 01/10/22 [facility]23[facility]23 [facility] [address] [place] [address] PCP - General Internal Medicine 04/24/23 documented as of this encounter
--- OUTSIDE RECORDS SUMMARY | 2025-04-30 16:41 | XMS_ITS | Encounter Summary ---
Author Organization [facility] Address [address] [place] [address] Care Team Providers Care Security Patrol Officer Name Role Phone Ena Egan MD Primary Care Provider Travis Rg MD Primary Care Provider Unavail Sally Jasmine MD Primary Care Provider Luca Bolanos Primary Care Provider [phone] [facility], Pcp Primary Care Provider Christy weiss Encounter Details Date Type Department Care Team Description 10/17/2018 Business Doc Medical Records [address] [place] [address] Abstract, Provider Social History Tobacco Use Types [...] filedocumented in this encounter Care Teams Security Patrol Officer Relationship Specialty Start Date End Date Ena Egan MD PCP - General Internal Medicine 08/03/11 02/17/21 Travis Hansen MD PCP - General Internal Medicine 02/18/21 06/06/21 Sally Stewart MD PCP - General Internal Medicine 06/07/21 01/09/22 Luca Thibodeaux [address] [place] [address] PCP - General Internal Medicine 01/10/22 04/23/23 [facility], Pcp [address] [place] [address] PCP - General Internal Medicine 04/24/23 documented as of this encounter
--- OUTSIDE RECORDS SUMMARY | 2025-04-30 16:41 | XMS_ITS | Encounter Summary ---
Author Organization [facility] Address [address] [place] [address] Care Team Providers Care Occupational Therapy Manager Name Role Phone Ena Egan MD Primary Care Provider Travis Rg MD Primary Care Provider Unavailab Sally Jasmine MD Primary Care Provider Luca Bolanos Primary Care Provider [phone] [facility], Pcp Primary Care Provider Unavailabl e Reason for Visit * Reason Onset Date Comments Medication 10/11/2019 prep Encounter Details Date Type Department Care Team Description 10/11/2019 Refill Gastroenterology - [address] [place] [phone] Ayan Welsh MD Medication (prep) Social History [...] on filedocumented in this encounter Care Teams Occupational Therapy Manager Relationship Specialty Start Date End Date Ena Egan MD PCP - General Internal Medicine 08/03/11 02/17/21 Travis Hansen MD PCP - General Internal Medicine 02/18/21 06/06/21 Sally Stewart MD PCP - General Internal Medicine 06/07/21 01/09/22 Luca Thibodeaux [address] [place] [address] PCP - General Internal Medicine 01/10/22 04/23/23 [facility], Wolf [address] [place] [address] PCP - General Internal Medicine 04/24/23 documented as of this encounter
--- OUTSIDE RECORDS SUMMARY | 2025-04-30 16:41 | XMS_ITS | Encounter Summary ---
Author Organization [facility] Address [address] [place] [address] Care Team Providers Care Credit Products Officer Name Role Phone Luca Thibodeaux Primary Care Provider [phone] [facility], Pcp [facility] Encounter Details Date Type Department Care Team Description 07/06/2022 Pt. Non Urgent Medical Question [facility] [address] [facility] [address] [place] [address] Lani Richey APRN Social History [...] on filedocumented in this encounter Care Teams Credit Products Officer Relationship Specialty Start Date End Date Luca Thibodeaux [address] [place] [address] PCP - General Internal Medicine 01/10/22 04/23/23 [facility], Pcp [address] [place] [address] PCP - General Internal Medicine 04/24/23 documented as of this encounter
--- OUTSIDE RECORDS SUMMARY | 2025-04-30 16:41 | XMS_ITS | Encounter Summary ---
Author Organization [facility] Address [address] [place] [address] Care Team Providers Care Rotary Dryer Operator Name Role Phone Ena Egan MD Primary Care Provider Travis Rg MD Primary Care Provider Unavail Sally Jasmine MD Primary Care Provider Luca Bolanos Primary Care Provider [phone] [facility] Pcp Primary Care Provider [facility] Encounter Details Date Type Department Care Team Description 05/27/2013 Pt. Non Urgent Medic al Question Adult Medicine [address] [address] Ena Egan MD Social History Tobacco Use [...] on filedocumented in this encounter Care Teams Rotary Dryer Operator Relationship Specialty Start Date End Date Ena Egan MD PCP - General Internal Medicine 08/03/11 02/17/21 Travis Hansen MD PCP - General Internal Medicine 02/18/21 06/06/21 Sally Stewart MD PCP - General Internal Medicine 06/07/21 01/09/22 Luca Thibodeaux [address] [place] [address] PCP - General Internal Medicine 01/10/22 04/23/23 [facility], Pcp [address] [place] [address] PCP - General Internal Medicine 04/24/23 documented as of this encounter
--- OUTSIDE RECORDS SUMMARY | 2025-04-30 16:41 | XMS_ITS | Encounter Summary ---
Author Organization [facility] Address [address] [place] [address] Care Team Providers Care Awning Maker And Installer Name Role Phone Ena Egan MD Primary Care Provider Travis Rg MD Primary Care Provider Sally Kim MD Primary Care Provider Luca Bolanos Primary Care Provider [phone] [facility], Pcp Primary Care Provider Unavailabl e Reason for Visit * Reason Onset Date Comments REFERRAL 10/18/2017 Encounter Details Date Type Department Care Team Description 10/18/2017 Telephone Physiatry - [address] [address] Estela Armstrong MD [address] [place] [address] [place], [place] [id number] REFERRAL Social History Tobacco Use Types Packs/Day [...] on filedocumented in this encounter Care Teams Awning Maker And Installer Relationship Specialty Start Date End Date Ena Egan MD PCP - General Internal Medicine 08/03/11 02/17/21 Travis Hansen MD PCP - General Internal Medicine 02/18/21 06/06/21 Sally Stewart MD PCP - General Internal Medicine 06/07/21 01/09/22 Luca Thibodeaux [address] [place] [id number] PCP - General Internal Medicine 01/10/22 04/23/23 [facility], [address] [place] [address] PCP - General Internal Medicine 04/24/23 documented as of this encounter
--- OUTSIDE RECORDS SUMMARY | 2025-04-30 16:41 | XMS_ITS | Encounter Summary ---
Author Organization [facility] Address [address] [place] [address] Care Team Providers Care Bag Adjuster Name Role Phone Ena Egan MD Primary Care Provider Travis Rg MD Primary Care Provider Sally Kim MD Primary Care Provider Luca Bolanos Primary Care Provider [facility] Primary Care Provider Unavailabl e Reason for Visit * Reason Onset Date Comments Provider Call Back 04/14/2020 Encounter Details Date Type Department Care Team Description 04/14/2020 Telephone Adult [address] [address] Ena Egan MD Provider Call Back Social [...] on filedocumented in this encounter Care Teams Bag Adjuster Relationship Specialty Start Date End Date Ena Egan MD PCP - General Internal Medicine 08/03/11 02/17/21 Travis Hansen MD PCP - General Internal Medicine 02/18/21 06/06/21 Sally Stewart MD PCP - General Internal Medicine 06/07/21 01/09/22 Luca Thibodeaux [address] [place] [address] PCP - General Internal Medicine 01/10/22 04/23/23 [facility], [facility] [place] [address] PCP - General Internal Medicine 04/24/23 documented as of this encounter
--- OUTSIDE RECORDS SUMMARY | 2025-04-30 16:41 | XMS_ITS | Encounter Summary ---
Author Organization [facility] Address [address] [place] [address] Care Team Providers Care Chief Maintenance Supervisor Name Role Phone Ena Egan MD Primary Care Provider Travis Rg MD Primary Care Provider Sally Kim MD Primary Care Provider Luca Bolanos Primary Care Provider [phone] [facility], Pcp Primary Care Provider Christy weiss Encounter Details Date Type Department Care Team Description 10/26/2020 Business Doc Medical Records [address] [place] [address] Abstract, Provider Social History Tobacco Use Types [...] filedocumented in this encounter Care Teams Chief Maintenance Supervisor Relationship Specialty Start Date End Date Ena Egan MD PCP - General Internal Medicine 08/03/11 02/17/21 Travis Hansen MD PCP - General Internal Medicine 02/18/21 06/06/21 Sally Stewart MD PCP - General Internal Medicine 06/07/21 01/09/22 Luca Thibodeaux [address] [place], [place] [id number] PCP - General Internal Medicine 01/10/22 04/23/23 [facility], Pcp [address] [place] [address] PCP - General Internal Medicine 04/24/23 documented as of this encounter
--- OUTSIDE RECORDS SUMMARY | 2025-04-30 16:41 | XMS_ITS | Encounter Summary ---
Author Organization [facility] Address [address] [place] [address] Care Team Providers Care Pole Inspector Name Role Phone Ena Egan MD Primary Care Provider Travis Rg MD Primary Care Provider Sally Kim MD Primary Care Provider Luca Bolanos Primary Care Provider [phone] [facility], Pcp Primary Care Provider Unavailabl e Reason for Visit * Reason Onset Date Comments Faxed Order 09/29/2017 Encounter Details Date Type Department Care Team Description 09/29/2017 Telephone Adult [address] [address] Lauren Hernandez MD Faxed Order Social History Tobacco Use [...] * Telephone Encounter - Daria Ponce - 09/29/2017 11:25 AM EST Faxed orders received from [facility], please sign and fax back to [phone]. documented in this encounter Plan of Treatment Not on file documented as of this encounter Visit Diagnoses Not on filedocumented in this encounter Care Teams Pole Inspector Relationship Specialty Start Date End Date Ena Egan MD PCP - General Internal Medicine 08/03/11 02/17/21 Travis Hansen MD PCP - General Internal Medicine 02/18/21 06/06/21 Sally Stewart MD PCP - General Internal Medicine 06/07/21 01/09/22 Luca Thibodeaux [address] [place] [id number] PCP - General Internal Medicine 01/10/22 [facility]23[facility]23 [facility] [address] [place] [address] PCP - General Internal Medicine 04/24/23 documented as of this encounter
--- OUTSIDE RECORDS SUMMARY | 2025-04-30 16:41 | XMS_ITS | Encounter Summary ---
Author Organization [facility] Address [address] [place] [address] Care Team Providers Care Charcoal Kiln Burner Name Role Phone Ena Egan MD Primary Care Provider Travis Rg MD Primary Care Provider Unavail Sally Jasmine MD Primary Care Provider Luca Bolanos Primary Care Provider [phone] [facility], Pcp Primary Care Provider Christy weiss Encounter Details Date Type Department Care Team Description 08/04/2018 Release of Information Medical Records [address] [place] [address] Abstract, Provider Social History Tobacco Use Types [...] on filedocumented in this encounter Care Teams Charcoal Kiln Burner Relationship Specialty Start Date End Date Ena Egan MD PCP - General Internal Medicine 08/03/11 02/17/21 Travis Hansen MD PCP - General Internal Medicine 02/18/21 06/06/21 Sally Stewart MD PCP - General Internal Medicine 06/07/21 01/09/22 Luca Thibodeaux [address] [place] [address] PCP - General Internal Medicine 01/10/22 04/23/23 [facility], Pcp [address] [place] [address] PCP - General Internal Medicine 04/24/23 documented as of this encounter
--- OUTSIDE RECORDS SUMMARY | 2025-04-30 16:41 | XMS_ITS | Encounter Summary ---
Author Organization [facility] Address [address] [place] [address] Care Team Providers Care Wire Loop Machine Operator Name Role Phone Ena Egan MD Primary Care Provider Travis Rg MD Primary Care Provider Sally Kim MD Primary Care Provider Luca Bolanos Primary Care Provider [phone] [facility], [facility] Primary Care Provider Unavailabl e Reason for Visit * Reason Onset Date Comments Call From Office 09/29/2017 Encounter Details Date Type Department Care Team Description 09/29/[address] [address] Ena Egan MD Call From Office Social [...] from Dr Mar, please call back at [phone] * Telephone Encounter - Lauren Hernandez MD [...] contact [place] in regards to patient at [phone] * Telephone Encounter - Nicki SeguraMTamATam - 09/29/2017 4:21 PM EST Tried to call [place] at [facility]. Lm for [place] to call back * [...] on filedocumented in this encounter Care Teams Wire Loop Machine Operator Relationship Specialty Start Date End Date Ena Egan MD PCP - General Internal Medicine 08/03/11 02/17/21 Travis Hansen MD PCP - General Internal Medicine 02/18/21 06/06/21 Sally Stewart MD PCP - General Internal Medicine 06/07/21 01/09/22 Luca Thibodeaux [address] [place] [address] PCP - General Internal Medicine 01/10/22 04/23/23 [facility], [address] [address] PCP - General Internal Medicine 04/24/23 documented as of this encounter
--- OUTSIDE RECORDS SUMMARY | 2025-04-30 16:41 | XMS_ITS | Encounter Summary ---
Author Organization [facility] Address [address] [place] [address] Care Team Providers Care Online Media Buyer Name Role Phone Ena Egan MD Primary Care Provider Travis Rg MD Primary Care Provider Unavail Sally Jasmine MD Primary Care Provider Luca Bolanos Primary Care Provider [phone] [facility] Pcp Primary Care Provider Christy weiss Encounter Details Date Type Department Care Team Description 01/31/2018 Hogshead Weigher Report Medical Records [address] [place] [address] Social History Tobacco Use Types Packs/Day Years [...] on filedocumented in this encounter Care Teams Online Media Buyer Relationship Specialty Start Date End Date Ena Egan MD PCP - General Internal Medicine 08/03/11 02/17/21 Travis Hansen MD PCP - General Internal Medicine 02/18/21 06/06/21 Sally Stewart MD PCP - General Internal Medicine 06/07/21 01/09/22 Luca Thibodeaux [address] [place] [address] PCP - General Internal Medicine 01/10/22 04/23/23 [facility], Pcp [address] [place] [address] PCP - General Internal Medicine 04/24/23 documented as of this encounter
--- OUTSIDE RECORDS SUMMARY | 2025-04-30 16:41 | XMS_ITS | Encounter Summary ---
Author Organization [facility] Address [address] [place] [address] Care Team Providers Care Gas And Oil Checker Name Role Phone Ena Egan MD Primary Care Provider Travis Rg MD Primary Care Provider Unavail Sally Jasmine MD Primary Care Provider Luca Bolanos Primary Care Provider [phone] [facility], Pcp Primary Care Provider Christy wesis Encounter Details Date Type Department Care Team Description 10/28/2019 Business Doc Medical Records [address] [place] [address] Abstract, Provider Social History Tobacco Use Types [...] on filedocumented in this encounter Care Teams Gas And Oil Checker Relationship Specialty Start Date End Date Ena Egan MD PCP - General Internal Medicine 08/03/11 02/17/21 Travis Hansen MD PCP - General Internal Medicine 02/18/21 06/06/21 Sally Stewart MD PCP - General Internal Medicine 06/07/21 01/09/22 Luca Thibodeaux [address] [place] [address] PCP - General Internal Medicine 01/10/22 04/23/23 [facility], Pcp [address] [place] [address] PCP - General Internal Medicine 04/24/23 documented as of this encounter
--- OUTSIDE RECORDS SUMMARY | 2025-04-30 16:41 | XMS_ITS | Encounter Summary ---
Author Organization [facility] Address [address] [place] [address] Care Team Providers Care Chief Substation Operator Name Role Phone Ena Egan MD Primary Care Provider Travis Rg MD Primary Care Provider UnavailSally Hutton MD Primary Care Provider Luca Bolanos Primary Care Provider [phone] [facility] Pcp Primary Care Provider Unavailabl e Reason for Visit * Reason Comments E-prescribe Rx Request Encounter Details Date Type Department Care Team Description 10/02/2018 Refill Adult Medicine [address] [address] Susan Hi PA-C [address] [place] [address] E-prescribe Rx Request Social History Tobacco Use [...] / Plan: [place] / Product Type: MEDICARE [id number] documented in this encounter Plan of Treatment Not on file documented as of this encounter Visit Diagnoses Not on filedocumented in this encounter Care Teams Chief Substation Operator Relationship Specialty Start Date End Date Ena Egan MD PCP - General Internal Medicine 08/03/11 02/17/21 Travis Hansen MD PCP - General Internal Medicine 02/18/21 06/06/21 Sally Stewart MD PCP - General Internal Medicine 06/07/21 01/09/22 Luca Thibodeaux [address] [place] [address] PCP - General Internal Medicine 01/10/22 04/23/23 [facility], Wolf [address] [place] [address] PCP - General Internal Medicine 04/24/23 documented as of this encounter
--- OUTSIDE RECORDS SUMMARY | 2025-04-30 16:41 | XMS_ITS | Encounter Summary ---
Author Organization [facility] Address [address] [place] [address] Care Team Providers Care Casting Associate Name Role Phone Travis Hansen MD Primary Care Provider Sally Kim MD Primary Care Provider Luca Bolanos Primary Care Provider [phone] [facility] Primary Care Provider [facility] Encounter Details Date Type Department Care Team Description 03/01/2021 Pt. Non Urgent Medic al Question Adult Medicine [address] [address] Ena Egan MD Social History Tobacco Use [...] have Coronavirus / COVID-19? No / Unsure 02/18/2021 9:36 AM EDT documented as of this encounter Miscellaneous Notes * Telephone Encounter - Louise Del Castillo - 03/01/2021 12:34 PM EDTFrom: Lucita Rojasmandylena To: Jakub Egan Sent: 03/01/2021 12:18 PM EDT Subject: Now what??? Arthurs Dr. Egan, I need to inform you that I fell last and was taken by ambulance to [facility]. X-rays showed a fracture and a crack at my left wrist/thumb area. I am in a fingers to elbow splint. ER scheduled an appointment for me to see an orthopedic surgeon at [facility] this coming . They said he wo uld put a cast on it. Due to this extremely limiting injury I am now in need of help regarding: managing my ADL skills, transportation, healthy meals with a electrical manufacturing technician to teach me healthy eating habits, 0T and PT (IN HOUSE) along with any other recommendations made. My goal is to return my wrist back to its' previous f unctional state. Sincerely, Lucita documented in this encounter Plan of Treatment Not on file documented as of this encounter Visit Diagnoses Not on filedocumented in this encounter Care Teams Casting Associate Relationship Specialty Start Date End Date Travis Hansen MD PCP - General Internal Medicine 02/18/21 06/06/21 Sally Stewart MD PCP - General Internal Medicine 06/07/21 01/09/22 Luca Thibodeaux [address] [place] [address] PCP - General Internal Medicine 01/10/22 04/23/23 [facility] [address] [address] PCP - General Internal Medicine 04/24/23 documented as of this encounter
--- OUTSIDE RECORDS SUMMARY | 2025-04-30 16:41 | XMS_ITS | Encounter Summary ---
Author Organization [facility] Address [address] [place] [address] Care Team Providers Care Pot Tender Name Role Phone Ena Egan MD Primary Care Provider Travis Rg MD Primary Care Provider Unavail Sally Jasmine MD Primary Care Provider Luca Bolanos Primary Care Provider [phone] [facility], Pcp Primary Care Provider Christy weiss Encounter Details Date Type Department Care Team Description 07/25/2019 Business Doc Medical Records [address] [place] [address] Abstract, Provider Social History Tobacco Use Types [...] on filedocumented in this encounter Care Teams Pot Tender Relationship Specialty Start Date End Date Ena Egan MD PCP - General Internal Medicine 08/03/11 02/17/21 Travis Hansen MD PCP - General Internal Medicine 02/18/21 06/06/21 Sally Stewart MD PCP - General Internal Medicine 06/07/21 01/09/22 Luca Thibodeaux [address] [place] [id number] PCP - General Internal Medicine 01/10/22 04/23/23 [facility], Pcp [address] [place] [address] PCP - General Internal Medicine 04/24/23 documented as of this encounter
--- OUTSIDE RECORDS SUMMARY | 2025-04-30 16:41 | XMS_ITS | Clinical Summary ---
Author Organization [facility] Address [address] [place] [address] Care Team Providers Care Staff Writer Name Role Phone Rosalva Reyes MD Primary [...] mg tabIndications:Chr onic atrial fibrillation (CMS & HHS-HCC) Take 1 Tablet by mouth 2 (two) times a day 180 Tablet 4 09/19/19 25 Active busPIRone (BUSPAR) 7.5 mg tabletIndications: Situational anxiety Take 1 Tablet by mouth 3 (three) times daily 90 Tablet 1 10/05/19 25 Active Additional Information Patient not taking.Reported on 01/03/2025 metoprolol succinate XL (TOPROL-XL) 50 mg 24 hr tabletIndications: Chronic atrial fibrillation (CMS & HHS-HCC) Take 1 Tablet by mouth nightly at [...] 24 hr capsuleIndications :Major depression, recurrent, chronic ([facility] V24) Take 1 Capsule by mouth once daily with breakfast. 90 Capsule 1 04/02/20 25 Active clonazePAM (KLONOPIN) 1 mg tabletIndications: Major depression, recurrent, chronic ([facility] V24) Take 1 Tablet by mouth nightly [...] sleep. 90 Tablet 4 04/10/20 25 Active prazosin (MINIPRESS) 5 mg capsuleIndications :Major depression, recurrent, chronic ([facility] V24) Take 1 Capsule by mouth nightly at bedtime. 90 Capsule 3 04/24/20 25 Active melatonin 3 mg tabletIndications: Adjustment insomnia Take 1 Tablet by mouth nightly at bedtime as needed for sleep 90 Tablet 4 08/23/20 24 025 Discontin ued(Reord er (E-Cancel Not Sent)) venlafaxine XR (EFFEXOR XR) 150 mg 24 hr capsuleIndications :Major depression, recurrent, chronic ([facility] V24) Take 1 Capsule by mouth once daily with breakfast 90 Capsule 1 09/17/19 25 025 Discontin ued(Reord er (E-Cancel Not Sent)) pantoprazole (PROTONIX) 40 mg EC tabletIndications: Gastroesophageal reflux disease without esophagitis Take 1 Tablet by mouth daily 90 Tablet 3 01/04/20 25 025 Discontin ued(Reord er (E-Cancel Not Sent)) prazosin (MINIPRESS) 5 mg capsuleIndications :Major depression, recurrent, chronic ([facility] V24) Take 1 Capsule by mouth nightly at bedtime. 90 Capsule 3 01/29/20 25 025 Discontin ued(Reord er (E-Cancel Not Sent)) clonazePAM (KLONOPIN) 1 mg tabletIndications: Major depression, recurrent, chronic ([facility] V24) Take 1 Tablet by mouth nightly [...] back to higher dose Chronic atrial fibrillation ([facility]) 08/04 Fractures 02/09/2022 Overview (07/01/2022): Per ot: Fractures of ribs 3 and 4 (left side), Fractures of both wrists and left thumb Osteopenia 06/04/2021 Renal cyst, right 04/25/2019 History of basal cell carcinoma 06/13/2018 Overview (06/11/2024): BCC 06/21 left arm (superficial) Sees annually DR Jaguar Cardona Ma 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 ([facility]) 02/09/2018 Overview (09/19/2024): 06/11/2024 PHQ-9 Total [...] Date Resolved Date Major depression, recurrent, chronic ([facility] V24) 12/23/2013 06/08/2023 Overview (07/01/2022): [place] admission 09/2016, 05/2017, [facility] Admission 08/2017 [...] Description 06/18/2025 9:00 AM EDT Telemedicine Visit [facility] [address] [place] [address] Nallely Stevens AGNP-C [address] [place] [phone] 09/10/2025 3:20 PM EST Office Visit [facility] [address] [place] [address] Rosalva Reyes MD [address] [place] [address] Health Maintenance Due Date Last Done Comments [...] 08/22/2024 , 06/11/2024, 05/09/2024, Additional history exists [id number] ( season) 2024 06/11/2024, 06/20/2023, 05/30/2021, Additional [...] 161 <200 mg/dL 09/20/2024 4:30 AM EST Ver[address] [facility] HDL CHOLESTEROL 62 > OR = 50 mg/dL 09/20/2024 4:30 AM EST [employer] TRIGLYCERIDES 70 <150 mg/dL 09/20/2024 4:30 AM EST Ver[address] [facility] LDL-CHOLESTEROL 84 mg/dL (calc) 09/20/2024 4:30 AM EST [employer] CHOL/HDLC RATIO 2.6 <5.0 (calc) 09/20/2024 4:30 AM EST Ver[address] [facility] NON-HDL CHOLESTEROL 99 <130 mg/dL (calc) 09/20/2024 4:30 AM EST Ver[facility] Blood Blood / Unknown 09/19/2024 2 :00 PM EST 09/20/2024 2:42 AM EST Narrative [employer] - 09/20/2024 4:33 AM EST FASTING:YES Reference [...] LDL-C. Ata GATES et al. ELEUTERIO. 2013;310(19): 2402-7560 (http://education.HardMetrics.Rebtel/faq/IYZ496) For patients with diabetes plus 1 major ASCVD risk factor, treating to a non-HDL-C goal of <100 mg/dL (LDL-C of <70 mg/dL) is considered a therapeutic option. [facility] - BLOOD DRAW Final Resul t [employer] [address] [address], [employer] / [employer] [address] [address] * ACUTE HEPATITIS PANEL W/RFLX (06/08/2023 1:29 PM EDT) HEPATITIS A IGM ANTIBODY NON-REACT JCARLOS NON-REACT JCARLOS 06/09/2023 3:07 AM EDT [employer] / [employer] [facility] HEPATITIS B SURFACE ANTIGEN NON-REACT JCARLOS NON-REACT JCARLOS 06/09/2023 3:07 AM EDT [employer] / [employer] [facility] HEPATITIS B CORE IGM ANTIBODY NON-REACT JCARLOS NON-REACT JCARLOS 06/09/2023 3:07 AM EDT [employer] / [employer] [facility] HEPATITIS C ANTIBODY NON-REACT JCARLOS NON-REACT JCARLOS 06/09/2023 3:07 AM EDT [employer] / [employer] [facility] Blood Blood / Unknown 06/08/2023 1 :29 PM EDT 06/09/2023 1:31 AM EDT Narr[address] [facility] - 06/09/2023 4:41 AM EDT FASTING:UNKNOWN . HCV antibody was non-reactive. There is no laboratory evidence of HCV infection. . In most cases, no further action is required. However, if recent HCV exposure is suspected, a test for HCV RNA (test code 63328) is suggested. . For additional information please refer to http://Uploadcare.Roomlr/faq/WGM58u0 (This link is being provided for informational/ educational purposes only.) . . For additional information, please refer to http://education.Benefitter.Rebtel/faq/MIM059 (This link is being provided for informational/ educational purposes only.) . Caitlyn Swanson [facility] - BLOOD DRAW Final Resul t [employer] / [employer] [address] [address], [employer] [address] [address] from Last 3 Months or Most Recently Relevant to Health Maintenance Insurance MEDICARE - [place] [facility]) Member Subscriber Plan / Payer (Ef fective 2022-Present) Name:Lucita Parekh Relation to Subscriber:Self Name:Lucita Parekh Payer ID:[id number] Group ID:Not on file [facility] Address: [address] [place] [address] Advance Directives Documents on File Type Date Recorded Patient Foot Gatherer Expl anation Directives to Physicians 08/22/2024 12:00 AM CHRIS HCP Care Teams Staff Writer Relationship Specialty Start Date End Date Rosalva Reyes MD [address] [place] [address] PCP - General 12/17/24
--- OUTSIDE RECORDS SUMMARY | 2025-04-30 16:41 | XMS_ITS | Encounter Summary ---
Author Organization [facility] Address [address] [place] [address] Care Team Providers Care Marketing Manager Name Role Phone Ena Egan MD Primary Care Provider Travis Rg MD Primary Care Provider Unavail Sally Jasmine MD Primary Care Provider Luca Bolanos Primary Care Provider [phone] [facility] Pcp Primary Care Provider Christy weiss Encounter Details Date Type Department Care Team Description 01/03/2018 Subassembler Report Medical Records [address] [place] [address] Social History Tobacco Use Types Packs/Day Years [...] on filedocumented in this encounter Care Teams Marketing Manager Relationship Specialty Start Date End Date Ena Egan MD PCP - General Internal Medicine 08/03/11 02/17/21 Travis Hansen MD PCP - General Internal Medicine 02/18/21 06/06/21 Sally Stewart MD PCP - General Internal Medicine 06/07/21 01/09/22 Luca Thibodeaux [address] [place] [id number] PCP - General Internal Medicine 01/10/22 04/23/23 [facility], Pcp [address] [place] [address] PCP - General Internal Medicine 04/24/23 documented as of this encounter
--- OUTSIDE RECORDS SUMMARY | 2025-04-30 16:42 | XMS_ITS | Encounter Summary ---
Author Organization [facility] Address [address] [place] [address] Care Team Providers Care Manager Imaging Name Role Phone Luca Thibodeaux Primary Care Provider [phone] [facility], Pcp Primary Care Provider [facility] e Encounter Details Date Type Department Care Team Description 03/30/2022 Pt. Non Urgent Medical Question Adult Medicine [address] [address] Luca Thibodeaux [address] [place] [address] Social History Tobacco Use Types Packs/Day Years [...] 03/30/2022 11:44 AM EDT Subject: Referral for Occupational Health Nursing Director On 01/27/23, I received [facility] my previous doctor, Dr Savage. [...] filedocumented in this encounter Care Teams Manager Imaging Relationship Specialty Start Date End Date Luca Thibodeaux [address] [place] [address] PCP - General Internal Medicine 01/10/22 04/23/23 [facility], [facility] [place] [address] PCP - General Internal Medicine 04/24/23 documented as of this encounter
--- OUTSIDE RECORDS SUMMARY | 2025-04-30 16:42 | XMS_ITS | Encounter Summary ---
Author Organization [facility] Address [address] [place] [address] Care Team Providers Care Trade Show Specialist Name Role Phone Ena Egan MD Primary Care Provider Travis Rg MD Primary Care Provider Unavail Sally Jasmine MD Primary Care Provider Luca Bolanos Primary Care Provider [phone] [facility], Pcp Primary Care Provider Christy Encounter Details Date Type Department Care Team Description 11/02/2016 Hospital Medical Records [address] [place] [address] Colby Oliva [address] [place] [address] Social History Tobacco Use Types Packs/Day Years [...] on filedocumented in this encounter Care Teams Trade Show Specialist Relationship Specialty Start Date End Date Ena Egan MD PCP - General Internal Medicine 08/03/11 02/17/21 Travis Hansen MD PCP - General Internal Medicine 02/18/21 06/06/21 Sally Stewart MD PCP - General Internal Medicine 06/07/21 01/09/22 Luca Thibodeaux [address] [place] [address] PCP - General Internal Medicine 01/10/22 04/23/23 [facility], [facility] [address] [place] [address] PCP - General Internal Medicine 04/24/23 documented as of this encounter
--- OUTSIDE RECORDS SUMMARY | 2025-04-30 16:42 | XMS_ITS | Encounter Summary ---
Author Organization [facility] Address [address] [place] [address] Care Team Providers Care Auto Parts Clerk Name Role Phone Ena Egan MD Primary Care Provider Travis Rg MD Primary Care Provider Unavail Sally Jasmine MD Primary Care Provider Luca Bolanos Primary Care Provider [phone] [facility] Pcp Primary Care Provider Christy weiss Encounter Details Date Type Department Care Team Description 08/06/2017 Hospital Medical Records [address] [place] [address] Maurisio Corea NP Social History Tobacco Use [...] on filedocumented in this encounter Care Teams Auto Parts Clerk Relationship Specialty Start Date End Date Ena Egan MD PCP - General Internal Medicine 08/03/11 02/17/21 Travis Hansen MD PCP - General Internal Medicine 02/18/21 06/06/21 Sally Stewart MD PCP - General Internal Medicine 06/07/21 01/09/22 uLca Thibodeaux [address] [place] [address] PCP - General Internal Medicine 01/10/22 04/23/23 [facility], Pcp [address] [place] [address] PCP - General Internal Medicine 04/24/23 documented as of this encounter
--- OUTSIDE RECORDS SUMMARY | 2025-04-30 16:42 | XMS_ITS | Encounter Summary ---
Author Organization [facility] Address [address] [place] [address] Care Team Providers Care Hospital Insurance Clerk Name Role Phone Sally Stewart MD Primary Care Provider Luca Bolanos Primary Care Provider [phone] [facility], Pcp [facility] Encounter Details Date Type Department Care Team Description 08/02/2021 Pt. Non Urgent Medical Question Adult Medicine [address] [address] Susan Hi PA-C [address] [place] [address] Social History Tobacco Use Types Packs/Day Years [...] on filedocumented in this encounter Care Teams Hospital Insurance Clerk Relationship Specialty Start Date End Date Sally Stewart MD PCP - General Internal Medicine 06/07/21 01/09/22 Luca Thibodeaux [address] [place] [address] PCP - General Internal Medicine 01/10/22 04/23/23 [facility], Pcp [address] [place] [address] PCP - General Internal Medicine 04/24/23 documented as of this encounter
--- OUTSIDE RECORDS SUMMARY | 2025-04-30 16:42 | XMS_ITS | Encounter Summary ---
Author Organization [facility] Address [address] [place] [address] Care Team Providers Care Travel Med Surg Rn Name Role Phone Sally Stewart MD Primary Care Provider Luca Bolanos Primary Care Provider [phone] [facility], Pcp Primary Care [facility] Encounter Details Date Type Department Care Team Description 07/19/2021 Orders Only Radiology - [place] [address] [place] [phone] Susan Hi PA-C [address] [place], [place] [phone] Screening for diabetes mellitus (Primary Dx) Social [...] EST [facility] Comment: If patient is -Jamaican, multiply result by 1.21 Chronic Kidney Disease: [...] mellitus documented in this encounter Care Teams Travel Med Surg Rn Relationship Specialty Start Date End Date Sally Stewart MD PCP - General Internal Medicine 06/07/21 01/09/22 Luca Thibodeaux [address] [place] [address] PCP - General Internal Medicine 01/10/22 04/23/23 [facility], [place] [address] [place] [address] PCP - General Internal Medicine 04/24/23 documented as of this encounter
--- OUTSIDE RECORDS SUMMARY | 2025-04-30 16:42 | XMS_ITS | Encounter Summary ---
Author Organization [facility] Address [address] [place] [address] Care Team Providers Care Certified Meeting Professional Name Role Phone Ena Egan MD Primary Care Provider Travis Rg MD Primary Care Provider [facility] Sally Jasmine MD Primary Care Provider Luca Bolanos Primary Care Provider [phone] [facility], Pcp Primary Care Provider [facility] Encounter Details Date Type Department Care Team Description 02/23/2017 Telephone Adult [address] [address] Ena Egan MD Social History Tobacco Use [...] on filedocumented in this encounter Care Teams Certified Meeting Professional Relationship Specialty Start Date End Date Ena Egan MD PCP - General Internal Medicine 08/03/11 02/17/21 Travis Hansen MD PCP - General Internal Medicine 02/18/21 06/06/21 Sally Stewart MD PCP - General Internal Medicine 06/07/21 01/09/22 Luca Thibodeaux [address] [place] [address] PCP - General Internal Medicine 01/10/22 04/23/23 [facility], Pcp [address] [place] [address] PCP - General Internal Medicine 04/24/23 documented as of this encounter
--- OUTSIDE RECORDS SUMMARY | 2025-04-30 16:42 | XMS_ITS | Encounter Summary ---
Author Organization [facility] Address [address] [place] [address] Care Team Providers Care Solid Fiber Paster Operator Name Role Phone Sally Stewart MD Primary Care Provider Luca Bolanos Primary Care Provider [phone] [facility], Pcp Primary Care Provider [facility] Encounter Details Date Type Department Care Team Description 08/09/2021 Blow Off Worker Report Medical Records [address] [place] [address] Brandt Correia MD Social History Tobacco Use [...] on filedocumented in this encounter Care Teams Solid Fiber Paster Operator Relationship Specialty Start Date End Date Sally Stewart MD PCP - General Internal Medicine 06/07/21 01/09/22 Luca Thibodeaux [address] [place] [address] [phone] PCP - General Internal Medicine 01/10/22 04/23/23 [facility], Pcp [address] [place] [address] PCP - General Internal Medicine 04/24/23 documented as of this encounter
--- OUTSIDE RECORDS SUMMARY | 2025-04-30 16:42 | XMS_ITS | Encounter Summary ---
Author Organization [facility] Address [address] [place] [address] Care Team Providers Care Teacher Dramatics Name Role Phone Sally Stewart MD Primary Care Provider Luca Bolanos Primary Care Provider [phone] [facility], Pcp Primary Care Provider [facility] Encounter Details Date Type Department Care Team Description 12/15/2021 Auditor Tax Report Medical Records [address] [place] [address] Ana Maria Zuñiga FNP Social History Tobacco Use Types Packs/Day Years [...] on filedocumented in this encounter Care Teams Teacher Dramatics Relationship Specialty Start Date End Date Sally Stewart MD PCP - General Internal Medicine 06/07/21 01/09/22 Luca Thibodeaux [address] [place] [phone] PCP - General Internal Medicine 01/10/22 04/23/23 [facility], Pcp [address] [place] [address] PCP - General Internal Medicine 04/24/23 documented as of this encounter
--- OUTSIDE RECORDS SUMMARY | 2025-04-30 16:42 | XMS_ITS | Encounter Summary ---
Author Organization [facility] Address [address] [place] [address] Care Team Providers Care Medicaid Biller Name Role Phone Sally Stewart MD Primary Care Provider Luca Bolanos Primary Care Provider [phone] [facility] Pcp Primary Care Provider [facility] Encounter Details Date Type Department Care Team Description 11/12/2021 Hospital Medical Records [address] [place], [place] [phone] [place] [address] Social History Tobacco Use Types Packs/Day Years [...] on filedocumented in this encounter Care Teams Medicaid Biller Relationship Specialty Start Date End Date Sally Stewart MD PCP - General Internal Medicine 06/07/21 01/09/22 Luca Thibodeaux [address] [place] [phone] PCP - General Internal Medicine 01/10/22 04/23/23 [facility], Pcp [address] [place] [address] PCP - General Internal Medicine 04/24/23 documented as of this encounter
--- OUTSIDE RECORDS SUMMARY | 2025-04-30 16:42 | XMS_ITS | Encounter Summary ---
Author Organization [facility] Address [address] [place] [address] Care Team Providers Care Research Project Coordinator Name Role Phone Sally Stewart MD Primary Care Provider Luca Bolanos Primary Care Provider [phone] On License Of [facility], Pcp Primary Care Provider Unavailabl e Reason for Visit * Reason Onset Date Comments Follow-up 10/20/2021 bilateral hand a rthritis Encounter Details Date Type Department Care Team Description 10/20/2021 Telephone [facility] [address] [facility] [address] [place] [phone] Lani Richey APRN Follow-up (bilateral hand [...] with nurse navigator Maddie Ely from the [facility] Orthopedic Dept. * Telephone Encounter - Best Christie - 10/20/2021 3:31 PM EST Pt states that she is having knee replacement surgery on November 02 at [facility] with Dr. Higinio Hennessy. She states that [...] on filedocumented in this encounter Care Teams Research Project Coordinator Relationship Specialty Start Date End Date Sally Stewart MD PCP - General Internal Medicine 06/07/21 01/09/22 Luca Thibodeaux [address] [place] [address] PCP - General Internal Medicine 01/10/22 04/23/23 On License Of [facility], Wolf [address] [place] [address] PCP - General Internal Medicine 04/24/23 documented as of this encounter
--- OUTSIDE RECORDS SUMMARY | 2025-04-30 16:42 | XMS_ITS | Encounter Summary ---
Author Organization [facility] Address [address] [place] [address] Care Team Providers Care Shanker Out Name Role Phone Ena Egan MD Primary Care Provider Travis Rg MD Primary Care Provider Unavail Sally Jasmine MD Primary Care Provider Luca Bolanos Primary Care Provider [phone] [facility], Pcp Primary Care Provider Christy weiss Encounter Details Date Type Department Care Team Description 08/26/2016 Business Doc Medical Records [address] [place] [address] Abstract, Provider Social History Tobacco Use Types [...] on filedocumented in this encounter Care Teams Shanker Out Relationship Specialty Start Date End Date Ena Egan MD PCP - General Internal Medicine 08/03/11 02/17/21 Travis Hansen MD PCP - General Internal Medicine 02/18/21 06/06/21 Sally Stewart MD PCP - General Internal Medicine 06/07/21 01/09/22 Luca Thibodeaux [address] [place] [address] PCP - General Internal Medicine 01/10/22 04/23/23 [facility], Pcp [address] [place] [address] PCP - General Internal Medicine 04/24/23 documented as of this encounter
--- OUTSIDE RECORDS SUMMARY | 2025-04-30 16:42 | XMS_ITS | Encounter Summary ---
Author Organization [facility] Address [address] [place] [address] Care Team Providers Care Rigging Up Worker Name Role Phone Sally Stewart MD Primary Care Provider Luca Bolanos Primary Care Provider [phone] [facility] Primary Care Provider [facility] e Reason for Visit * Reason Onset Date Comments hospital follow up 11/19/2021 Encounter Details Date Type Department Care Team Description 11/19/2021 Pt. Non Urgent Medic al Question Adult Medicine [address] [address] Sally Stewart MD Social History Tobacco Use [...] Dr. Trent Christianson MD, my doctor at [facility] has asked that I be scheduled to see you within 7 days to follow-up on my November 02 knee replacement surgery. My discharge date is Monday. Sincerely, Lucita documented in this encounter Plan of Treatment Not on file documented as of this encounter Visit Diagnoses Not on filedocumented in this encounter Care Teams Rigging Up Worker Relationship Specialty Start Date End Date Sally Stewart MD PCP - General Internal Medicine 06/07/21 01/09/22 Luca Thibodeaux [address] [place] [address] PCP - General Internal Medicine 01/10/22 04/23/23 [facility], [address] [address] PCP - General Internal Medicine 04/24/23 documented as of this encounter
--- OUTSIDE RECORDS SUMMARY | 2025-04-30 16:42 | XMS_ITS | Encounter Summary ---
Author Organization [facility] Address [address] [place] [address] Care Team Providers Care Family Services Manager Name Role Phone Luca Thibodeaux Primary Care Provider [phone] [facility], Pcp Primary Care Provider Unavailabl e Reason for Visit * Reason Onset Date Comments Letter 04/08/2022 for pharmacy to administer Shringrix #2 please see note pharmacy requiring note from provider ok to give past 6 mo Encounter Details Date Type Department Care Team Description 04/08/2022 Pt. Non Urgent Medical Question Adult Medicine [address] [address] Luca Thibodeaux [address] [place] [address] Social History Tobacco Use Types Packs/Day Years [...] Telephone Encounter - Sharee Ji M.A. - 04/08/2022 8:35 AM EDTFrom: Lucita Parekh To: Neelam Thibodeaux Sent: 04/08/2022 8:23 AM EDT Subject: Shingles shot 2nd dose Hello, I had a shingles shot at [facility] a number of months ago. I stopped in yesterday for #2. I wasover 6 months and cannot get my 2nd shot without an approval letter from my PCP. Therefore please send [facility] a letter of consent at [address] [place] [address]. #[phone] Thank you, Lucita documented in this encounter Plan of Treatment Not on file documented as of this encounter Visit Diagnoses Not on filedocumented in this encounter Care Teams Family Services Manager Relationship Specialty Start Date End Date Luca Thibodeaux [address] [place] [address] PCP - General Internal Medicine 01/10/22 04/23/23 [facility], [address] [address] PCP - General Internal Medicine 04/24/23 documented as of this encounter
--- OUTSIDE RECORDS SUMMARY | 2025-04-30 16:42 | XMS_ITS | Encounter Summary ---
Author Organization [facility] Address [address] [place] [address] Care Team Providers Care Returned Materials Inspector Name Role Phone Ena Egan MD Primary Care Provider Travis Rg MD Primary Care Provider Unavail Sally Jasmine MD Primary Care Provider Luca Bolanos Primary Care Provider [phone] [facility], Pcp Primary Care Provider Christy weiss Encounter Details Date Type Department Care Team Description 01/09/2017 Release of Information Medical Records [address] [place] [address] Abstract, Provider Social History Tobacco Use Types [...] on filedocumented in this encounter Care Teams Returned Materials Inspector Relationship Specialty Start Date End Date Ena Egan MD PCP - General Internal Medicine 08/03/11 02/17/21 Travis Hansen MD PCP - General Internal Medicine 02/18/21 06/06/21 Sally Stewart MD PCP - General Internal Medicine 06/07/21 01/09/22 Luca Thibodeaux [address] [place] [address] PCP - General Internal Medicine 01/10/22 04/23/23 [facility], Pcp [address] [place] [address] PCP - General Internal Medicine 04/24/23 documented as of this encounter
--- OUTSIDE RECORDS SUMMARY | 2025-04-30 16:42 | XMS_ITS | Encounter Summary ---
Author Organization [facility] Address [address] [place] [address] Care Team Providers Care Boring Mill Set Up Operator Name Role Phone Luca Thibodeaux Primary Care Provider [phone] [facility], Pcp Primary Care Provider Unavailabl e Reason for Visit * Reason Comments E-prescribe Rx Request Encounter Details Date Type Department Care Team Description 04/16/2022 Refill Adult Medicine [address] [address] Sally Stewart MD E-prescribe Rx Request Social [...] / Plan: [place] / Product Type: MEDICARE [id number] documented in this encounter Plan of Treatment Not on file documented as of this encounter Visit Diagnoses Not on filedocumented in this encounter Care Teams Boring Mill Set Up Operator Relationship Specialty Start Date End Date Luca Thibodeaux [address] [place] [address] PCP - General Internal Medicine 01/10/22 04/23/[address] [address] PCP - General Internal Medicine 04/24/23 documented as of this encounter
--- OUTSIDE RECORDS SUMMARY | 2025-04-30 16:42 | XMS_ITS | Encounter Summary ---
Author Organization [facility] Address [address] [place] [address] Care Team Providers Care Field Software Engineer Name Role Phone Sally Stewart MD Primary Care Provider Luca Bolanos Primary Care Provider [phone] [facility], Pcp Primary Care Provider [facility] Encounter Details Date Type Department Care Team Description 12/09/2021 Steam Roller Operator Report Medical Records [address] [place] [address] Mj Frederick [address] 10 [place] [address] Social History Tobacco Use Types Packs/Day Years [...] on filedocumented in this encounter Care Teams Field Software Engineer Relationship Specialty Start Date End Date Sally Stewart MD PCP - General Internal Medicine 06/07/21 01/09/22 Luca Thibodeaux [address] [place] [address] PCP - General Internal Medicine 01/10/22 04/23/23 [facility], Pcp [address] [place] [address] PCP - General Internal Medicine 04/24/23 documented as of this encounter
--- OUTSIDE RECORDS SUMMARY | 2025-04-30 16:42 | XMS_ITS | Encounter Summary ---
Author Organization [facility] Address [address] [place] [address] Care Team Providers Care Crane Service Technician Name Role Phone Ena Egan MD Primary Care Provider Travis Rg MD Primary Care Provider Unavail Sally Jasmine MD Primary Care Provider Luca Bolanos Primary Care Provider [phone] [facility] Pcp Primary Care Provider Christy weiss Encounter Details Date Type Department Care Team Description 09/19/2016 Hospital Medical Records [address] Social History Tobacco Use Types Packs/Day [...] on filedocumented in this encounter Care Teams Crane Service Technician Relationship Specialty Start Date End Date Ena Egan MD PCP - General Internal Medicine 08/03/11 02/17/21 Travis Hansen MD PCP - General Internal Medicine 02/18/21 06/06/21 Sally Stewart MD PCP - General Internal Medicine 06/07/21 01/09/22 Luca Thibodeaux [address] [place] [address] PCP - General Internal Medicine 01/10/22 04/23/23 [facility], Pcp [address] [place] [address] PCP - General Internal Medicine 04/24/23 documented as of this encounter
--- OUTSIDE RECORDS SUMMARY | 2025-04-30 16:42 | XMS_ITS | Encounter Summary ---
Author Organization [facility] Address [address] [place] [address] Care Team Providers Care Assistant Track And Field Coach Name Role Phone Ena Egan MD Primary Care Provider Travis Rg MD Primary Care Provider Unavail Sally Jasmine MD Primary Care Provider Luca Bolanos Primary Care Provider [phone] [facility], Pcp Primary Care Provider Unavaildawn weiss Encounter Details Date Type Department Care Team Description 04/11/2016 OBSTETRICIAN/GYNECOLOGIST/MassPat Report Medical Records [address] [place] [address] Abstract, Provider Social History Tobacco Use Types [...] on filedocumented in this encounter Care Teams Assistant Track And Field Coach Relationship Specialty Start Date End Date Ena Egan MD PCP - General Internal Medicine 08/03/11 02/17/21 Travis Hansen MD PCP - General Internal Medicine 02/18/21 06/06/21 Sally Stewart MD PCP - General Internal Medicine 06/07/21 01/09/22 Luca Thibodeaux [address] [place] [address] PCP - General Internal Medicine 01/10/22 04/23/23 [facility], Pcp [address] [place] [address] PCP - General Internal Medicine 04/24/23 documented as of this encounter
--- OUTSIDE RECORDS SUMMARY | 2025-04-30 16:42 | XMS_ITS | Encounter Summary ---
Author Organization [facility] Address [address] [place] [address] Care Team Providers Care Substation Operator Chief Name Role Phone Saira Valencia MD Primary Care Provider [phone] Ayan Correia MD Primary Care Provider Unavail Ena Iniguez MD Primary Care Provider Travis Rg MD Primary Care Provider Unavailab Sally Jasmine MD Primary Care Provider Luca Bolanos Primary Care Provider [phone] [facility], Pcp Primary Care Provider Unavaildawn weiss Encounter Details Date Type Department Care Team Description 08/20/2002 Orders Only Medical [address] [place] [address] Loc Diamond MD [address] [place] [address] [phone] Social History Tobacco Use Types Packs/Day Years Used Date Smoking Tobacco: Never Assessed Sex Assigned at Date Recorded Not on file Job Start Date Occupation Industry Not on file Not on file Not on file documented as of this encounter Plan of Treatment Not on file documented as of this encounter Visit Diagnoses Not on filedocumented in this encounter Care Teams Substation Operator Chief Relationship Specialty Start Date End Date Saira Valencia MD [address] [place] [id number] PCP - General 08/18/09 08/02/11 Ayan Correia MD PCP - General 07/04/1999 08/17/09 Ena Egan MD PCP - General Internal Medicine 08/03/11 02/17/21 Travis Hansen MD PCP - General Internal Medicine 02/18/21 06/06/21 Sally Stewart MD PCP - General Internal Medicine 06/07/21 01/09/22 Luca Thibodeaux [address] [place] [address] PCP - General Internal Medicine 01/10/22 04/23/23 [facility], Pcp [address] [place] [address] PCP - General Internal Medicine 04/24/23 documented as of this encounter
--- OUTSIDE RECORDS SUMMARY | 2025-04-30 16:42 | XMS_ITS | Encounter Summary ---
Author Organization [facility] Address [address] [place] [address] Care Team Providers Care Printing Screen Assembler Name Role Phone Sally Stewart MD Primary Care Provider Luca Bolanos Primary Care Provider [phone] [facility], Pcp Primary Care Provider [facility] Encounter Details Date Type Department Care Team Description 11/22/2021 Home Health Certification Medical Records [address] [place] [address] Mj Frederick [address] 10 [place] [address] Social History Tobacco Use Types Packs/Day Years [...] on filedocumented in this encounter Care Teams Printing Screen Assembler Relationship Specialty Start Date End Date Sally Stewart MD PCP - General Internal Medicine 06/07/21 01/09/22 Luca Thibodeaux [address] [place] [address] PCP - General Internal Medicine 01/10/22 04/23/23 [facility], Pcp [address] [place] [address] PCP - General Internal Medicine 04/24/23 documented as of this encounter
--- OUTSIDE RECORDS SUMMARY | 2025-04-30 16:42 | XMS_ITS | Encounter Summary ---
Author Organization [facility] Address [address] [place] [address] Care Team Providers Care Investment Banking Analyst Name Role Phone Sally Stewart MD Primary Care Provider Luca Bolanos Primary Care Provider [phone] [facility], Pcp Primary Care Provider [facility] Encounter Details Date Type Department Care Team Description 12/22/2021 Head Of Store Operations Report Medical Records [address] [place] [address] Orthopedics, [address] [place] [address] Social History Tobacco Use Types Packs/Day Years [...] suspected to have Coronavirus/COVID-19? No / Unsure 12/20/2021 12:55 PM EDT documented as of this encounter Plan of Treatment Not on file documented as of this encounter Visit Diagnoses Not on filedocumented in this encounter Care Teams Investment Banking Analyst Relationship Specialty Start Date End Date Sally Stewart MD PCP - General Internal Medicine 06/07/21 01/09/22 Luca Thibodeaux [address] [place] [address] PCP - General Internal Medicine 01/10/22 04/23/23 [facility], Pcp [address] [place] [address] PCP - General Internal Medicine 04/24/23 documented as of this encounter
--- OUTSIDE RECORDS SUMMARY | 2025-04-30 16:42 | XMS_ITS | Encounter Summary ---
Author Organization [facility] Address [address] [place] [address] Care Team Providers Care Corporate Planner Name Role Phone Sally Stewart MD Primary Care Provider Luca Bolanos Primary Care Provider [phone] [facility], [facility] Primary Care Provider [facility] Reason for Visit * Reason Onset Date Comments Faxed Order 07/13/2021 Encounter Details Date Type Department Care Team Description 07/13/2021 Telephone Adult Medicine [address] [address] Sally Stewart MD Faxed Order Social History Tobacco Use [...] have Coronavirus / COVID-19? No / Unsure 07/12/2021 10:25 AM EST documented as of this encounter Miscellaneous Notes * Telephone Encounter - Lara Jordan - 07/13/2021 10:09 AM EST Faxed order from [facility]. Please sign, date, and fax. documented in this encounter Plan of Treatment Not on file documented as of this encounter Visit Diagnoses Not on filedocumented in this encounter Care Teams Corporate Planner Relationship Specialty Start Date End Date Sally Stewart MD PCP - General Internal Medicine 06/07/21 01/09/22 Luca Thibodeaux [address] [place] [address] PCP - General Internal Medicine 01/10/22 04/23/23 [facility], [address] [address] PCP - General Internal Medicine 04/24/23 documented as of this encounter
--- OUTSIDE RECORDS SUMMARY | 2025-04-30 16:42 | XMS_ITS | Encounter Summary ---
Author Organization [facility] Address [address] [place] [address] Care Team Providers Care Structural Rigger Name Role Phone Ena Egan MD Primary Care Provider Travis Rg MD Primary Care Provider Unavail Sally Jasmine MD Primary Care Provider Luca Bolanos Primary Care Provider [phone] [facility] Pcp Primary Care Provider Christy weiss Encounter Details Date Type Department Care Team Description 03/20/2017 Hospital Medical Records [address] [place] [address] Timothy Jose Social History Tobacco Use Types [...] on filedocumented in this encounter Care Teams Structural Rigger Relationship Specialty Start Date End Date Ena Egan MD PCP - General Internal Medicine 08/03/11 02/17/21 Travis Hansen MD PCP - General Internal Medicine 02/18/21 06/06/21 Sally Stewart MD PCP - General Internal Medicine 06/07/21 01/09/22 Luca Thibodeaux [address] [place] [address] PCP - General Internal Medicine 01/10/22 04/23/23 [facility], Pcp [address] [place] [address] PCP - General Internal Medicine 04/24/23 documented as of this encounter
--- OUTSIDE RECORDS SUMMARY | 2025-04-30 16:42 | XMS_ITS | Encounter Summary ---
Author Organization [facility] Address [address] [place] [address] Care Team Providers Care Counter Dish Carrier Name Role Phone Sally Stewart MD Primary Care Provider Luca Bolanos Primary Care Provider [phone] [facility], [facility] Primary Care Provider [facility] Reason for Visit * Reason Onset Date Comments Pre Op Visit 10/20/2021 Encounter Details Date Type Department Care Team Description 10/20/2021 Telephone Adult Medicine [address] [address] Sally Stewart MD Pre Op Visit Social [...] filedocumented in this encounter Care Teams Counter Dish Carrier Relationship Specialty Start Date End Date Sally Stewart MD PCP - General Internal Medicine 06/07/21 01/09/22 Luca Thibodeaux [address] [place] [address] PCP - General Internal Medicine 01/10/22 04/23/23 [facility], [address] [address] PCP - General Internal Medicine 04/24/23 documented as of this encounter
--- OUTSIDE RECORDS SUMMARY | 2025-04-30 16:42 | XMS_ITS | Encounter Summary ---
Author Organization [facility] Address [address] [place] [address] Care Team Providers Care Zinc Miner Name Role Phone Luca Thibodeaux Primary Care Provider [phone] [facility], Pcp Primary Care Provider [facility] Encounter Details Date Type Department Care Team Description 04/20/2022 Pt. Non Urgent Medical Question [facility] [address] [facility] [address] [place] [address] Lani Richey APRN Social History [...] on filedocumented in this encounter Care Teams Zinc Miner Relationship Specialty Start Date End Date Luca Thibodeaux [address] [place] [address] PCP - General Internal Medicine 01/10/22 04/23/23 [facility], Pcp [address] [place] [address] PCP - General Internal Medicine 04/24/23 documented as of this encounter
--- OUTSIDE RECORDS SUMMARY | 2025-04-30 16:42 | XMS_ITS | Encounter Summary ---
Author Organization [facility] Address [address] [place] [address] Care Team Providers Care Rigger Supervisor Name Role Phone Ena Egan MD Primary Care Provider Travis Rg MD Primary Care Provider UnavailSally Hutton MD Primary Care Provider Luca Bolanos Primary Care Provider [phone] [facility], Pcp Primary Care Provider Unavailabl e Reason for Referral * Non [facility] (Routine) - Authorized/Booked Specialty Diagnoses / Procedures Referred By Kp t Referred To Contact Physiatry Diagnoses Abnormal gait Procedures REFERRAL TO PHYSIATRY Lauren Hernandez MD [address] [place] [address] Physi/[facility] [address] [place] [address] Referral ID Status Reason Start Date Expiration Date V isits Requested Visits Authorized [id number] LTR 10/10/17 Authorized/ Booked 10/03/2017 10/03/2018 1 1 * Radiology Services (Routine) - Closed Specialty Diagnoses / Procedures Referred By Kp t Referred To Contact Radiology Diagnoses Abnormal gait Procedures MRI OF LUMBAR SPINE NO CONTRAST Lauren Hernandez MD [address] [place] [address] Mri/[facility] [address] [place] [address] Referral ID Status Reason Start Date Expiration Date Visits Re quested Visits Authorized [id number] Closed 10/03/2017 12/03/2017 1 1 Encounter Details Date Type Department Care Team Description 10/03/2017 Orders Only Adult Medicine [address] [address] Lauren Hernandez MD Abnormal gait Social History [...] renal cyst as completely imaged on CT. Pattern And Chain Maker view demonstrates distended urinary bladder. L1-2: Posterior [...] right renal cyst ascompletely imaged on CT. Pattern And Chain Maker view demonstrates distended urinary bladder. L1-2: Posterior [...] gait documented in this encounter Care Teams Rigger Supervisor Relationship Specialty Start Date End Date Ena Egan MD PCP - General Internal Medicine 08/03/11 02/17/21 Travis Hansen MD PCP - General Internal Medicine 02/18/21 06/06/21 Sally Stewart MD PCP - General Internal Medicine 06/07/21 01/09/22 Luca Thibodeaux [address] [place] [address] PCP - General Internal Medicine 01/10/22 04/23/23 [facility] [address] [place] [address] PCP - General Internal Medicine 04/24/23 documented as of this encounter
--- OUTSIDE RECORDS SUMMARY | 2025-04-30 16:42 | XMS_ITS | Encounter Summary ---
Author Organization [facility] Address [address] [place] [address] Care Team Providers Care Coding Educator Name Role Phone Saira Valencia MD Primary Care Provider [phone] Ayan Correia MD Primary Care Provider Unavail Ena Iniguez MD Primary Care Provider Travis Rg MD Primary Care Provider Unavailab Sally Jasmine MD Primary Care Provider Luca Bolanos Primary Care Provider [phone] [facility], Pcp Primary Care Provider Unavailabl e Reason for Visit * Reason Comments other Encounter Details Date Type Department Care Team Description 05/15/2001 Telephone Adult Medicine [address] [id number] Sydney Gilmore MD [address] [place] [address] [phone] other Social History Tobacco Use Types Packs/Day [...] 05/15/2001 4:21 PM EDTCALL RECEIVED. Contact: PATIENT [phone] PT WAS SEEN ON 04/26 FOR ABD PAIN AND YOU WHERE GOING TO SEND DOWN A REFERRAL TO DR REYES FOR CONSULT OR SIGMOID PLEASE RE DO documented in this encounter Plan of Treatment Not on file documented as of this encounter Visit Diagnoses Not on filedocumented in this encounter Care Teams Coding Educator Relationship Specialty Start Date End Date Saira Valencia MD [address] [place], [place] [phone] PCP - General 08/18/09 08/02/11 Ayan Correia MD PCP - General 07/04/1999 08/17/09 Ena Egan MD PCP - General Internal Medicine 08/03/11 02/17/21 Travis Hansen MD PCP - General Internal Medicine 02/18/21 06/06/21 Sally Stewart MD PCP - General Internal Medicine 06/07/21 01/09/22 Luca Thibodeaux [address] [place] [address] PCP - General Internal Medicine 01/10/22 04/23/23 [facility], Pcp [address] [place] [address] PCP - General Internal Medicine 04/24/23 documented as of this encounter
--- OUTSIDE RECORDS SUMMARY | 2025-04-30 16:42 | XMS_ITS | Encounter Summary ---
Author Organization [facility] Address [address] [place] [address] Care Team Providers Care Market Research Manager Name Role Phone Sally Stewart MD Primary Care Provider Luca Bolanos Primary Care Provider [phone] [facility], Pcp Primary Care Provider [facility] Encounter Details Date Type Department Care Team Description 11/18/2021 Tire Inspector Report Medical Records [address] [place] [address] Glory Ramey Social History Tobacco Use Types [...] on filedocumented in this encounter Care Teams Market Research Manager Relationship Specialty Start Date End Date Sally Stewart MD PCP - General Internal Medicine 06/07/21 01/09/22 Luca Thibodeaux [address] [place] [address] [phone] PCP - General Internal Medicine 01/10/22 04/23/23 [facility], Pcp [address] [place] [address] PCP - General Internal Medicine 04/24/23 documented as of this encounter
--- OUTSIDE RECORDS SUMMARY | 2025-04-30 16:42 | XMS_ITS | Encounter Summary ---
Author Organization [facility] Address [address] [place] [address] Care Team Providers Care Supervisor Cereal Name Role Phone Sally Stewart MD Primary Care Provider Luca Bolanos Primary Care Provider [facility] Primary Care Provider [facility] Reason for Visit * Reason Onset Date Comments Faxed Order 12/06/2021 Order #[id number] Encounter Details Date Type Department Care Team Description 12/06/2021 Telephone Adult [address] [address] Sally Stewart MD Faxed Order (Order #[id number]) Social History Tobacco Use Types Packs/Day Years [...] * Telephone Encounter - Lara Jordan - 12/06/2021 10:04 AM EDT Faxed order from [facility]. Order #[id number]. Please sign, date, and fax back. documented in this encounter Plan of Treatment Not on file documented as of this encounter Visit Diagnoses Not on filedocumented in this encounter Care Teams Supervisor Cereal Relationship Specialty Start Date End Date Sally Stewart MD PCP - General Internal Medicine 06/07/21 01/09/22 Luca Thibodeaux [address] [place], [place] [phone] PCP - General Internal Medicine 01/10/22 04/23/23 [facility], [address] [address] PCP - General Internal Medicine 04/24/23 documented as of this encounter
--- OUTSIDE RECORDS SUMMARY | 2025-04-30 16:42 | XMS_ITS | Encounter Summary ---
Author Organization [facility] Address [address] [place] [address] Care Team Providers Care Arc Welder Name Role Phone Ena Egan MD Primary Care Provider Travis Rg MD Primary Care Provider Sally Kim MD Primary Care Provider Luca Bolanos Primary Care Provider [phone] [facility], Pcp Primary Care Provider Christy weiss Encounter Details Date Type Department Care Team Description 02/15/2017 Orders Only Medical Records [address] [place] [address] Ena Egan MD Social History Tobacco Use [...] Name Priority Date/Time Associated Diagnosis Comments OUTSIDE MRI/MRA Routine 01/03/2017 documented in this encounter Results * OUTSIDE MRI/MRA (01/03/2017) Ena Egan MD RADIOLOGY documented in this encounter Visit Diagnoses Not on filedocumented in this encounter Care Teams Arc Welder Relationship Specialty Start Date End Date Ena Egan MD PCP - General Internal Medicine 08/03/11 02/17/21 Travis Hansen MD PCP - General Internal Medicine 02/18/21 06/06/21 Sally Stewart MD PCP - General Internal Medicine 06/07/21 01/09/22 Luca Thibodeaux [address] [place] [address] [id number] PCP - General Internal Medicine 01/10/22 04/23/23 [facility], Pcp [address] [place] [address] PCP - General Internal Medicine 04/24/23 documented as of this encounter
--- OUTSIDE RECORDS SUMMARY | 2025-04-30 16:42 | XMS_ITS | Encounter Summary ---
Author Organization [facility] Address [address] [place] [address] Care Team Providers Care Corporate Manager Name Role Phone Ena Egan MD Primary Care Provider Travis Rg MD Primary Care Provider Unavail Sally Jasmine MD Primary Care Provider Luca Bolanos Primary Care Provider [phone] [facility], Pcp Primary Care Provider Christy weiss Encounter Details Date Type Department Care Team Description 02/23/2017 SCAN Medical Records [address] [place] [id number] Abstract, Provider Social History Tobacco Use Types [...] filedocumented in this encounter Care Teams Corporate Manager Relationship Specialty Start Date End Date Ena Egan MD PCP - General Internal Medicine 08/03/11 02/17/21 Travis Hansen MD PCP - General Internal Medicine 02/18/21 06/06/21 Sally Stewart MD PCP - General Internal Medicine 06/07/21 01/09/22 Luca Thibodeaux [address] [place] [address] PCP - General Internal Medicine 01/10/22 04/23/23 [facility], Pcp [address] [place] [address] PCP - General Internal Medicine 04/24/23 documented as of this encounter
--- OUTSIDE RECORDS SUMMARY | 2025-04-30 16:42 | XMS_ITS | Encounter Summary ---
Author Organization [facility] Address [address] [place] [address] Care Team Providers Care Living Skills Advisor Name Role Phone Ena Egan MD Primary Care Provider Travis Rg MD Primary Care Provider Unavail Sally Jasmine MD Primary Care Provider Luca Bolanos Primary Care Provider [phone] [facility] Pcp Primary Care Provider Christy weiss Encounter Details Date Type Department Care Team Description 09/14/2016 Hospital Medical Records [address] Social History Tobacco Use Types Packs/Day [...] on filedocumented in this encounter Care Teams Living Skills Advisor Relationship Specialty Start Date End Date Ena Egan MD PCP - General Internal Medicine 08/03/11 02/17/21 Travis Hasnen MD PCP - General Internal Medicine 02/18/21 06/06/21 Sally Stewart MD PCP - General Internal Medicine 06/07/21 01/09/22 Luca Thibodeaux [address] [place] [address] PCP - General Internal Medicine 01/10/22 04/23/23 [facility], Pcp [address] [place] [phone] PCP - General Internal Medicine 04/24/23 documented as of this encounter
--- OUTSIDE RECORDS SUMMARY | 2025-04-30 16:42 | XMS_ITS | Encounter Summary ---
Author Organization [facility] Address [address] [place] [address] Care Team Providers Care Timber Feller Name Role Phone Luca Thibodeaux Primary Care Provider [phone] [facility], Pcp [facility] Encounter Details Date Type Department Care Team Description 03/22/2022 Pt. Non Urgent Medical Question Adult Medicine [address] [address] Sydney Gilmore MD [address] [place] [address] [phone] Social History Tobacco Use Types Packs/Day Years [...] on filedocumented in this encounter Care Teams Timber Feller Relationship Specialty Start Date End Date Luca Thibodeaux [address] [place] [address] [phone] PCP - General Internal Medicine 01/10/22 04/23/23 [facility], [address] [address] PCP - General Internal Medicine 04/24/23 documented as of this encounter
--- OUTSIDE RECORDS SUMMARY | 2025-04-30 16:42 | XMS_ITS | Encounter Summary ---
Author Organization [facility] Address [address] [place] [address] Care Team Providers Care Music Rehabilitation Therapist Name Role Phone Sally Stewart MD Primary Care Provider Luca Bolanos Primary Care Provider [phone] [facility], Pcp Primary Care [facility] Encounter Details Date Type Department Care Team Description 12/16/2021 Horse Trekking Guide Report Medical Records [address] [place] [address] Glory Ramey Social History Tobacco Use Types [...] on filedocumented in this encounter Care Teams Music Rehabilitation Therapist Relationship Specialty Start Date End Date Sally Stewart MD PCP - General Internal Medicine 06/07/21 01/09/22 Luca Thibodeaux [address] [place] [address] [phone] PCP - General Internal Medicine 01/10/22 04/23/23 [facility], Pcp [address] [place] [address] PCP - General Internal Medicine 04/24/23 documented as of this encounter
--- OUTSIDE RECORDS SUMMARY | 2025-04-30 16:43 | XMS_ITS | Encounter Summary ---
Author Organization [facility] Address [address] [place] [address] Care Team Providers Care Form Grader Operator Name Role Phone Ena Egan MD Primary Care Provider Travis Rg MD Primary Care Provider Unavail Sally Jasmine MD Primary Care Provider Luca Bolanos Primary Care Provider [phone] [facility] Pcp Primary Care Provider Unavaildawn Encounter Details Date Type Department Care Team Description 10/06/2016 Manager Interface Report Medical Records [address] [place] [address] Caleb Diaz MD Social History Tobacco Use [...] on filedocumented in this encounter Care Teams Form Grader Operator Relationship Specialty Start Date End Date Ena Egan MD PCP - General Internal Medicine 08/03/11 02/17/21 Travis Hansen MD PCP - General Internal Medicine 02/18/21 06/06/21 Sally Stewart MD PCP - General Internal Medicine 06/07/21 01/09/22 Luca Thibodeaux [address] [place] [address] PCP - General Internal Medicine 01/10/22 04/23/23 [facility], Pcp [address] [place] [address] PCP - General Internal Medicine 04/24/23 documented as of this encounter
[2025-05-06 10:38] LABS: PEU-Protein Creat Ratio Rand NOTE (0.024-0.184); PEU-Rand. Prot/Creat Ratio NOTE mg/g creat (24-184); PEU-Random Ur. Gamma Globulin 0 %; PEU-Random Urine A1 Globulin 0 %; PEU-Random Urine A2 Globulin 0 %; PEU-Random Urine Albumin 0 %; PEU-Random Urine Beta Globulin 0 %; PEU-Random Urine Creatinine 23 mg/dL (20-275); PEU-Random Urine Protein <4 mg/dL (5-24)
== END 2025-04-30 15:27 | disposition home or self-care (01) ==
LOC: HO.LNP 15:26
PROVIDERS: Visit Provider Internal Medicine Cardiovascular Disease
DX: I51.7 Cardiomegaly (principal)
CPT/HCPCS: 82570; 84156; 84166

== ENCOUNTER 2025-06-17 11:19 | Outpatient (AMB) | payer MEDICARE, OTHER, SELFPAY ==
--- OUTSIDE RECORDS SUMMARY | 2025-05-14 11:00 | XMS_ITS ---
Author Organization [facility] Address [address] [place] [phone] Care Team Providers Care Marketing Production Manager Name Role Phone Hilda KYLE, Nallely Primary Care Provider Kaye BETO Borja Unavailable [phone] REASON FOR VISIT Left Knee [facility]/ [facility] En[facility]ters Encounter Location Date Provider Diagnosis [facility] [address] [place] [phone] 05/14/2025 BETO LAM Plan Of Treatment No Information Progress Notes * Lucita PAREKHDOB:[birth year] (74 yo F)Acc No.[id number]:05/14/2025 Patient: Lucita CHANEL Provider: Hari LAM MD :1950 A ge:74 Y S ex:Female Date:05/14/2025 Address:[address] [place], [place] [phone] Pcp:Nallely Stevens NP Subjective: * Chief Complaints: * 1 . Left Knee pain/ [facility] * Medical History: Objective: * Vitals: Assessment: Plan: * Treatment: * * Electronic signature of TYSHAWN LAM M.D. on 06/17/2025 at 01:42 PM EDT Sign off status: Pending * Provider: Hari LAM MD Date: 0 05/14/2025 Generated for Kirsten rhodes/Kodak/Janell on: 1 01:42 PM EDT
[2025-06-17 11:22] VITALS: BP 106/68; PULSE 78; TEMP 36.8; O2SAT 96; BMI 26.1
--- NOTE | 2025-06-17 11:22 | MHC.OFFWIV ---
Intake Vital Signs 06/17/25 11:22 Height 5 ft 6 in Weight 162 lb BMI 26.1 BP 106/68 Blood Pressure Location Lt brachial Position Sitting Pulse 78 Pulse Source Pulse Oximeter Temp 98.2 F Temp Source Oral Pulse Oximetry (%) 96 Oxygen Delivery Method Room Air Intake Visit Reasons: EP Fall, RT knee pain, can't flex ankle/toes Intake Note: pt presents with pain to right knee with inability to flex RT ankle and toes s/p falling 05/22/25. reports RTKA Patient Tobacco Use Status: Former Tobacco user Allergies No Known Allergies (No Known Allergies*) Allergy (Verified 06/17/25 11:30) Do you need a note to return to daycare/school/sports/work: No HPI HPI Comments History of Present Illness Details History of Present Illness - The patient is a 74-year-old female presenting with right leg dysfunction following a fall. - The fall on May 22 resulted in a right sided clavicle fracture and five rib fractures. - Post-fall, the patient experienced abnormal walking and difficulty with right leg movement, particularly lifting the foot like a prancing horse. - The patient reports inability to dorsiflex the toes and ankle on the right side, with symptoms worsening over the past two weeks. - The patient suspects misalignment in the knee replacement, with visible changes noted in the knee structure when straightening her knee. - The patient has a history of knee replacement surgery performed by Dr. Hennessy, with recent imaging and follow-up planned. - Has a telehealth with PCP tomorrow Physical Exam General: Cooperative, healthy appearing, comfortable, no acute distress and well developed Orientation: Patient oriented x3 Limitations: ambulates normally Head: Normal to inspection Ears: Hearing grossly normal bilaterally Face and sinus: Normal facial exam Eyes: Appearance normal, both eyes and all related structures Neck: Normal visual inspection, full ROM Respiratory: Normal respiratory effort and able to speak in complete sentences. Skin: No rashes or lesions noted Neuro: Patient oriented x3, limping gait with cane, lifting right foot when walking Back/spine: no TTP cervical, thoracic or lumbar spine Extremities: right knee negative patellar ballottment, no TTP anterior or posterior knee, neg anterior and posterior drawer test, neg varus and valgus joint laxity, full ROM, no skin changes or edema. Right foot with no skin changes, edema or ecchymosis, can only dorsiflex/plantarflex to 10-20 degrees, can only dorsiflex/plantarflex toes to 10-20 degrees, all toes are vascularly intact Review of Systems - Musculoskeletal: Reports inability to dorsiflex toes and ankle on the right side, worsening over two weeks. Denies pain in the foot or ankle. - Neurological: Reports weakness in foot dorsiflexion. Denies pain in the affected area. All systems reviewed and are unremarkable except as noted in HPI [facility] Medical History Gait apraxia Arthritis of left knee Gait disturbance HTN (hypertension) Osteoarthritis IBS (irritable bowel syndrome) Major depression, recurrent, chronic Vitamin D deficiency Abnormal gait Pure hypercholesterolemia Severe major depression without psychotic features Hx of basal cell carcinoma Osteopenia Paroxysmal atrial fibrillation Surgical History History of esophagogastroduodenoscopy (EGD) Hx of colonoscopy Hx of breast biopsy Hx of hysterectomy Hx of appendectomy Family History Father No problems noted. Mother No problems noted. Social History Are you a primary care management associate to a significant other at home: No Do you presently have visiting nurse or other home services: Yes (PSYCHIATRIC NURSE PRACTITIONER 4 hours per week) Comment: aware of trip hazard Patient Tobacco Use Status: Former Tobacco user Tobacco use type: Cigarette Advance Directives Date on File: 11/11/21 service: No Current occupational status: retired Current occupation: rt handed Physical Exam Vital Signs: Last Vital Signs Temp 98.2 F 06/17/25 11:22 Pulse 78 06/17/25 11:22 BP 106/68 06/17/25 11:22 Pulse Ox 96 06/17/25 11:22 Oxygen Delivery Method Room Air 06/17/25 11:22 BMI result Body Mass Index 26.1 Assessment & Plan Assessment & Plan (1) Right knee pain: Code(s): M25.561 - Pain in right knee Qualifiers: Chronicity: acute Qualified Code(s): M25.561 - Pain in right knee Plan: as below (2) Fall against object: Code(s): W18.00XA - Striking against unspecified object with subsequent fall, initial encounter Plan: as below (3) Peroneal nerve injury: Code(s): S84.10XA - Injury of peroneal nerve at lower leg level, unspecified leg, initial encounter Qualifiers: Encounter type: initial encounter Laterality: right Qualified Code(s): S84.11XA - Injury of peroneal nerve at lower leg level, right leg, initial encounter Plan: Assessment and Plan - With symptoms of drop foot, likely Peroneal nerve injury from the trauma/fall. - Recommend asking PCP for nerve conduction study (EMG) to assess nerve function and potential entrapment. Ice area frequently. She has an appt tomorrow with her PCP. Also follow up with Orthopedics. - Obtain x-ray to evaluate hardware position and consult with orthopedic surgeon Dr. Hennessy for further management. Patient was informed and verbally consented to the use of an ambient scribe for clinic note documentation during this visit. Orders: Orders XR knee RT 4V Today M25.561 - Pain in right knee, W18.00XA - Striking against unspecified object with subsequent fall, initial encounter Coding Level of Care Code New Pt Level 4 (38926) Diagnoses Acute pain of right knee M25.561 Chronicity: acute Fall against object W18.00XA Injury of right peroneal nerve, initial encounter S84.11XA Encounter type: initial encounter Laterality: right
--- OUTSIDE RECORDS SUMMARY | 2025-06-17 13:43 | XMS_ITS | Clinical Summary ---
Author Organization [address] Address [address] [place] [phone] Phone Care Team Providers Care Insurance Commissioner Name Role Phone Luca Thibodeaux MD Primary [...] chronic (CMS/HCC V2 4) 12/23/2013 Overview (08/30/2024): [place] admission 09/2016, 05/2017, [facility] Ad[facility] 08/2017 - intentional overdose hx x2 , ECT therapy 05/2017, outside psychiatric care Dr Barry Chest pain, unspecified 08/06/2006 Overview (08/30/2024): MIBI neg 05/10, EF 58 Dermatophytosis of foot 05/05/2006 Hyperlipidemia 05/05/2006 Irritable bowel syndrome 03/17/2006 Overview (08/30/2024): EGD, Colonoscopy (-)08/06/01 Generalized osteoarthrosis of hand 03/17/2006 Overview (08/30/2024): IMO update Immunizations Immunization Administration Dates Next Due Influenza Quadravalent, 0.5m [...] lt breast UPPER GASTROINTESTINAL ENDOSCOPY 2013 PROCEDURE: [place] UPPER GI ENDOSCOPY PERFORMED; COMMENT: normal UPPER GASTROINTESTINAL ENDOSCOPY 08/2001 PROCEDURE: [place] UPPER GI ENDOSCOPY PERFORMED; COMMENT: WNL APPENDECTOMY 01/2020 PROCEDURE: HISTORICAL APPENDECTOMY; COMMENT: [place] COLONOSCOPY 09/11/2020 PROCEDURE: HISTORICAL COLONOSCOPY; COMMENT: Minimal diverticulosis; 3 mm cecal polyp: Tubular adenoma. APPENDECTOMY PROCEDURE: [place] APPENDECTOMY Medical History Medical History Date Comments Irritable bowel syndrome DX:Irri table bowel syndrome; COMMENT: EGD, Colonoscopy (-)08/06/01 Lumbosacral spondylosis with out myelopathy DX:Lumbosacral spondylosis w ithout myelopathy Generalized osteoarthrosis, involving hand DX:Generalized osteoarthrosi s, involving hand Dermatophytosis of foot DX:[place] tophytosis of foot Iron deficiency anemia secon [...] DX:Major depression, recurre nt, chronic (HCC); COMMENT: [place] admission 09/2016, 05/2017, [facility] 08/2017 [...] COVID-19 Vaccine (7 - Pfizer risk season) 2025 06/11/2024, 06/20/2023, 06/01/2021, Additional history exists Influenza [...] is recommended in 1 year. MAMMO LOCATION: [facility], [address] [place] [address], [facility], . -------- FINAL REPORT -------- Dictated By: Domitila Joshua Dictated Date: 08/09/2024 15:18 ET Assigned Physician: Domitila Joshua Reviewed and Electronically Signed By: Domitila Joshua Signed Date: 08/09/2024 15:19 ET Workstation ID: [id number] Transcribed By: Self Edit Transcribed Date: 08/09/2024 [...] is recommended in 1 year. MAMMO LOCATION: [facility], [address] [place] [address], [address], . -------- FINAL REPORT -------- Dictated By: Domitila Joshua Dictated Date: 08/09/2024 15:18 ET Assigned Physician: Domitila Joshua Reviewed and Electronically Signed By: Domitila Joshua Signed Date: 08/09/2024 15:19 ET Workstation ID: [id number] Transcribed By: Self Edit Transcribed Date: 08/09/2024 15:18 ET Caitlyn Swanson NP IMG BI PROCEDURES Final Result * Hepatitis C Screening (09/15/2022) Pathologist [facility] Hepatitis C Screening Abstracted Historical Provider HEALTH [...] risk by FRAX. us Ena Egan MD [facility] DXA PROCEDURES Final Res ult * Hm Colonoscopy (09/11/2020) Colonoscopy No interpretation , Abstracted Anatomical Region Laterality Modality Other Historical Provider HEALTH MAINTENANCE Final Result from Last 3 Months or Most Recently Relevant to Health Maintenance Insurance MEDICARE [facility] [address] [place] [address] Care Teams Insurance Commissioner Relationship Specialty Start Date End Date Luca Thibodeaux MD [address] [place] [address] PCP - General Internal Medicine 01/10/22
--- OUTSIDE RECORDS SUMMARY | 2025-06-17 13:43 | XMS_ITS | Patient Health Record ---
Author Organization [facility] Address [address] [place] [address] Care Team Providers Care Child Care Leader Name Role Phone Hilda KYLE, Nallely Primary Care Provider Kaye martinsyaniraBETO Ling Unavailable [phone] Reason For Referral No Information Medications Medication [...] Status Risk Notes Problem Right shoulder pain (1800023897) Right shoulder pain (M25.511) Active confirmed Problem Left shoulder pain (5902801184) Left shoulder pain (M25.512) Active confirmed Problem Abnormal gait (55028103) Balance disorder (R26.89) Active confirmed Problem Right anterior knee pain (M25.561) Active confirmed Problem Localized, primary osteoarthritis of the hand () Osteoarthritis of carpometacarpal (CMC) joint of both thumbs (M18.0) Active confirmed Problem Localized, primary osteoarthritis of the hand () Arthritis of carpometacarpal (CMC) joint of both thumbs (M18.0) Active confirmed Plan Of Treatment No Information Insurance Providers Payer Name Payer Address Payer Phone Subscriber Number Group Number Insured Name Patient Relationship to Insured Coverage Start Date Coverage End Date Medicare [address] [place] [id number] [phone] [id number] Lucita Young Self - patient is the insured [facility] [address] [facility] [address] [phone] [id number] Lucita Young Self - patient is the [...]
--- OUTSIDE RECORDS SUMMARY | 2025-06-17 13:43 | XMS_ITS | Clinical Summary ---
Author Organization [facility] Address [address] [facility] [address] [place] [address] Phone Care Team Providers Care Poultry Farmer Name Role Phone Caitlyn Swanson NP Primary Care Provider [phone] Allergies No known active allergies Medications * [...] 02/25/2026 10:10 AM EDT Office Visit [facility] [address] [place] [address] Brianne Curtis MD, MPH [address] [facility], [facility] [address] [place] [address] [email or web address] Health Maintenance Due Date Last Done Comments LIPID PANEL 1950 DEPRESSION SCREENING 1962 HEPATITIS C SCREENING 1968 MAMMOGRAM 1990 COLOGUARD 11/30/1995 COLONOSCOPY 11/30/1995 COLORECTAL CANCER SCREENING 11/30/1995 FIT TEST 11/30/1995 FOBT 11/30/1995 SIGMOIDOSCOPY 11/30/1995 VIRTUAL COLONOSCOPY 11/30/1995 ZOSTER VACCINES (1 of 2) 2000 OSTEOPOROSIS SCREENING INITI AL (ONE-TIME) 11/30/2015 INFLUENZA VACCINE (#1) 2025 , 05/11/2018, 08/16/2017 COVID-19 VACCINE (2 - 2024-2 6 season) 2025 11/19/2020 RSV VACCINE (1 - 1-dose 75+ [...] topic Medical Devices Not on file Insurance [facility] HMO MEDICARE PART A [facility] MED[facility] PART A & [facility] Address: [address] [address] MEDICARE PART A & B [facility] Address: [address] [address] MEDICARE PART A & [facility] Address[facility] [address] [address] MEDICARE PART A & B [facility] Member Subscriber Plan / Payer (Ef fective 2017-Present) Name:BobzahiraChanel ozuna Relation to Subscriber:Self Name:CHANEL PAREKH Payer ID:Not on file Type:HMO Address: [place] [id number] MEDICARE PART A & B [facility] MEDICARE PART A & B [facility] HMO MEDICARE PART A & B Advance Directives For more information, please contact: [phone] (9AM - 5PM [facility], Monday-Monday) * Full Code (Presumed) (Latest Code Status on File) Date Activated Date Inactivated Comments 02/09/2018 11:50 PM 02/14/2018 1:55 PM Care Teams Poultry Farmer Relationship Specialty Start Date End Date Caitlyn Swanson NP [address] [place] [address] PCP - General Nurse Practitioner 12/19/24 Additional Source Comments The information contained in this document represents components of the legal health record. It is not the complete legal health record.[facility]
== END 2025-06-17 12:11 | disposition home or self-care (01) ==
PROVIDERS: PCP Family Medicine; Visit Provider Physician Assistant
DX: M25.561 Pain in right knee (principal); W18.00XA Striking against unspecified object with subsequent fall, initial encounter; S84.11XA Injury of peroneal nerve at lower leg level, right leg, initial encounter

== ENCOUNTER 2025-06-17 11:19 | Outpatient (REF) | payer MEDICARE, OTHER, SELFPAY ==
--- NOTE | ~2025-06-17 | XR_ITS ---
EXAMINATION: XR KNEE, RIGHT CLINICAL INFORMATION: M25.561 - Pain in right knee COMPARISON: 04/09/2025. TECHNIQUE: Four views of the right knee. FINDINGS: There has been a total right knee arthroplasty, with associated patellar resurfacing. Femoral, and tibial components are in place, intact, in anatomic alignment. No periprosthetic fracture, lucency, or complication evident. No fracture, dislocation, or bone lesion. No significant joint effusion. No soft tissue abnormalities. XR/XR knee RT 4V IMPRESSION: Total right knee arthroplasty without complication evident. No acute fracture or joint effusion. Electronically signed by: Bienvenido Gill MD 06/17/2025 12:17 PM EDT
== END 2025-06-17 11:20 | disposition home or self-care (01) ==
LOC: HO.HMGCX 11:19
PROVIDERS: PCP Family Medicine; Visit Provider Physician Assistant
DX: S84.11XA Injury of peroneal nerve at lower leg level, right leg, initial encounter (principal); W18.00XA Striking against unspecified object with subsequent fall, initial encounter
CPT/HCPCS: 73564; 99202

== ENCOUNTER → 2025-06-17 12:01 | Outpatient (BNV) | payer MEDICARE, OTHER, SELFPAY | PROVIDERS: PCP Family Medicine; Visit Provider Radiology Diagnostic Radiology | DX: M25.561 Pain in right knee (principal) | CPT/HCPCS: 73564 ==

== ENCOUNTER 2025-06-26 08:23 | Outpatient (REF) | payer MEDICARE, OTHER, SELFPAY ==
--- NOTE | ~2025-06-26 | XR_ITS ---
EXAMINATION: XR CLAVICLE, RIGHT CLINICAL INFORMATION: S42.009A - Fracture of unspecified part of unspecified clavicle, initial... COMPARISON: December 16, 2024. TECHNIQUE: AP view of the right clavicle. FINDINGS: There is a comminuted displaced cortical disruption distal diaphysis and the mid diaphysis of the clavicle resulting in an inferior displacement of the proximal fragment and 14 mm gap overlapping fragments. The acromioclavicular joint is intact. There is a subchondral cyst formation and asymmetric joint space narrowing sclerotic abnormality placed along the articular surface of the glenohumeral joint with marginal osteophyte formation. XR/XR clavicle RT IMPRESSION: Comminuted displaced fractures in the mid diaphysis and distal diaphysis of the clavicle. Osteoarthrosis/osteoarthritis, glenohumeral joint. EXAMINATION: XR KNEE, RIGHT CLINICAL INFORMATION: S42.009A - Fracture of unspecified part of unspecified clavicle, initial... COMPARISON: June 17, 2025 TECHNIQUE: AP view in standing position both knees. Lateral and sunrise projection of the right knee. FINDINGS: Metallic prosthesis with a femoral and tibial plateau component well-seated in the osseous structures. There is loosening involving the tibial component and to a lesser extent the medial femoral condyle. No gross malalignment. Moderate osteoarthrosis/osteoarthritis involving mostly the medial compartment of the left knee. IMPRESSION: Concerning loosening both tibial plateau and medial femoral condyle component centered in the arthroplasty prosthesis, right knee. Electronically signed by: Nirav Mendoza MD 06/26/2025 02:41 PM EDT
--- NOTE | ~2025-06-26 | XR_ITS ---
EXAMINATION: XR KNEE, RIGHT 1V CLINICAL INFORMATION: M25.561 - Pain in right knee COMPARISON: 06/26/2025. 06/17/2025. TECHNIQUE: Solitary lateral projection of the right knee. FINDINGS: Single lateral projection of the right knee demonstrates total right knee arthroplasty with patellar resurfacing. Tibial, femoral components are intact, well seated, in anatomic alignment. No periprosthetic loosening or fracture evident. There is a probable suprapatellar joint effusion present. Evaluation is difficult due to mild obliquity. No gross soft tissue abnormalities. XR/XR knee RT 1V IMPRESSION: 1. Solitary right knee lateral projection demonstrates total right knee arthroplasty without complication. There is a probable suprapatellar joint effusion. Electronically signed by: Bienvenido Gill MD 06/26/2025 03:33 PM EDT
--- NOTE | ~2025-06-26 | XR_ITS ---
EXAMINATION: XR CLAVICLE, RIGHT CLINICAL INFORMATION: S42.009A - Fracture of unspecified part of unspecified clavicle, initial... COMPARISON: December 16, 2024. TECHNIQUE: AP view of the right clavicle. FINDINGS: There is a comminuted displaced cortical disruption distal diaphysis and the mid diaphysis of the clavicle resulting in an inferior displacement of the proximal fragment and 14 mm gap overlapping fragments. The acromioclavicular joint is intact. There is a subchondral cyst formation and asymmetric joint space narrowing sclerotic abnormality placed along the articular surface of the glenohumeral joint with marginal osteophyte formation. XR/XR knee RT 3V IMPRESSION: Comminuted displaced fractures in the mid diaphysis and distal diaphysis of the clavicle. Osteoarthrosis/osteoarthritis, glenohumeral joint. EXAMINATION: XR KNEE, RIGHT CLINICAL INFORMATION: S42.009A - Fracture of unspecified part of unspecified clavicle, initial... COMPARISON: June 17, 2025 TECHNIQUE: AP view in standing position both knees. Lateral and sunrise projection of the right knee. FINDINGS: Metallic prosthesis with a femoral and tibial plateau component well-seated in the osseous structures. There is loosening involving the tibial component and to a lesser extent the medial femoral condyle. No gross malalignment. Moderate osteoarthrosis/osteoarthritis involving mostly the medial compartment of the left knee. IMPRESSION: Concerning loosening both tibial plateau and medial femoral condyle component centered in the arthroplasty prosthesis, right knee. Electronically signed by: Nirav Mendoza MD 06/26/2025 02:41 PM EDT
--- OUTSIDE RECORDS SUMMARY | 2025-06-26 08:42 | XMS_ITS | Clinical Summary ---
Author Organization [facility] Address [address] [place] [address] Care Team Providers Care Duct Maker Name Role Phone Rosalva Reyes MD [...] (ELIQUIS) 5 mg tabIndications:Chr onic atrial fibrillation Take 1 Tablet by mouth 2 (two) times a day 180 Tablet 4 09/19/19 25 Active metoprolol succinate XL (TOPROL-XL) 50 mg 24 hr tabletIndications: Chronic atrial fibrillation Take 1 Tablet by mouth nightly at bedtime. 90 Tablet 4 02/01/20 25 Active solifenacin (VESICARE) 10 mg tablet Take 1 Tablet by mouth once daily. 90 Tablet 4 04/02/20 25 Active venlafaxine XR (EFFEXOR XR) 150 mg 24 hr capsuleIndications :Major depression, recurrent, chronic Take 1 Capsule by mouth once daily with breakfast. 90 Capsule 1 04/02/20 25 Active pantoprazole (PROTONIX) 40 mg EC tabletIndications: Gastroesophageal reflux disease without esophagitis Take 1 Tablet by mouth daily. 90 Tablet 3 04/10/20 25 026 Active melatonin 3 mg tabletIndications: Adjustment insomnia Take 1 Tablet by mouth nightly at bedtime as needed for sleep. 90 Tablet 4 04/10/20 25 Active prazosin (MINIPRESS) 5 mg capsuleIndications :Major depression, recurrent, chronic Take 1 Capsule by mouth nightly at bedtime. 90 Capsule 3 04/24/20 25 Active dextroamphetamine- amphetamine (ADDERALL XR) 10 mg 24 hr capsuleIndications :Attention deficit hyperactivity disorder (ADHD), predominantly inattentive type TAKE 1 CAPSULE BY MOUTH ONCE A DAY IN THE MORNING. 90 Capsule 05/10/20 25 Active atorvastatin (LIPITOR) 20 mg tabletIndications: Mixed hyperlipidemia Take 1 Tablet by mouth once daily. 90 Tablet 4 05/12/20 25 Active naloxone (NARCAN) 4 mg/actuation nasal sprayIndications:C losed fracture of multiple ribs with routine healing, unspecified laterality, subsequent encounter Place 1 Venus into the nostril(s) as needed for opioid reversal (Overdose). 2 Each 05/27/20 25 Active clonazePAM (KLONOPIN) 1 mg tabletIndications: Major depression, recurrent, chronic Take 1 Tablet by mouth nightly at bedtime for 28 days. 28 Tablet 06/12/20 25 025 Active gabapentin (NEURONTIN) 300 mg capsuleIndications :Anxiety,Spinal stenosis of lumbar region, unspecified whether neurogenic claudication present Take 1 Capsule by mouth nightly at bedtime. 90 Capsule 06/17/20 25 Active cholecalciferol (VITAMIN D-3) 25 mcg (1,000 unit) tablet Take 1,000 Units by mouth daily. 09/15/19 23 Active cyclobenzaprine (FLEXERIL) 5 mg tablet Take 5 mg by mouth 3 (three) times daily as needed. 05/23/20 25 Active busPIRone (BUSPAR) 7.5 mg tabletIndications: Situational anxiety Take 1 Tablet by mouth 3 (three) times daily 90 Tablet 1 10/05/19 25 025 Discontinu ed(Therapy completed/ Not needed) gabapentin (NEURONTIN) 300 mg capsuleIndications :Anxiety,Spinal stenosis of lumbar region, unspecified whether neurogenic claudication present Take 1 Capsule by mouth nightly at bedtime. 90 Capsule 03/17/20 25 025 Discontinu ed(Reorder (E-Cancel Not Sent)) clonazePAM (KLONOPIN) 1 mg tabletIndications: Major depression, recurrent, chronic Take 1 Tablet by mouth nightly at bedtime for 28 days. 28 Tablet 05/12/20 25 025 Discontinu ed(Reorder (E-Cancel Not Sent)) oxyCODONE (ROXICODONE) 5 mg tabletIndications: Closed displaced fracture of right clavicle, unspecified part of clavicle, initial encounter,Closed fracture of multiple ribs of right side, initial encounter Take 1 Tablet by mouth every 6 (six) hours as needed for pain. Max Daily Amount: 20 mg 20 Tablet 05/26/20 25 025 Discontinu ed(Therapy completed/ Not needed) cyclobenzaprine (FLEXERIL) 5 mg tabletIndications: Closed displaced fracture of right clavicle, unspecified part of clavicle, initial encounter,Closed fracture of multiple ribs of right side, initial encounter Take 1 Tablet by mouth 3 (three) times daily as needed for muscle spasms. 15 Tablet 05/26/20 25 025 Discontinu ed(Therapy completed/ Not needed) traMADoL (ULTRAM) 50 mg tabletIndications: Closed fracture of multiple ribs with routine healing, unspecified laterality, subsequent encounter Take 1 Tablet by mouth 4 (four) times daily as needed for pain. Max Daily Amount: 200 mg 5 Tablet 05/27/20 25 025 Discontinu ed(Reorder (E-Cancel Not Sent)) traMADoL (ULTRAM) 50 mg tabletIndications: Closed fracture of multiple ribs with routine healing, unspecified laterality, subsequent encounter Take 1 Tablet by mouth 4 (four) times daily as needed for pain. Max Daily Amount: 200 mg 30 Tablet 05/29/20 25 025 Discontinu ed(Reorder (E-Cancel Not Sent)) traMADoL (ULTRAM) 50 mg tabletIndications: pain Take 1 Tablet by mouth 2 (two) times Daily for 7 days Indications: pain. Max Daily Amount: 100 mg 14 Tablet 06/06/20 25 025 Discontinu ed(Reorder (E-Cancel Not Sent)) traMADoL (ULTRAM) 50 mg tabletIndications: pain Take 1 Tablet by mouth 2 (two) times Daily for 14 days Indications: pain. Max Daily Amount: 100 mg 28 Tablet 06/09/20 25 025 tiZANidine (ZANAFLEX) 2 mg tablet 03/15/20 25 025 Discontinu ed(Therapy completed/ Not needed) Active Problems Problem Noted Date Diagnosed Date Acute pain of right knee 06/20/2025 Overview (06/20/2025): 06/17/25 UC : right knee pain s/p fall associated with drop foot likely peroneal nerve injury. Recommend nerve conduction study to assess nerve function and potential entrapment. Obtain X-ray to evaluate hardware position and consult with orthopedic surgeon for further management. 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 08/30/2022 Gastroesophageal reflux disease without esophagi tis 08/22/2022 Overview (06/11/2024): Pt unsure why on Protonix and no memory of GERD will taper off Protonix q 2 wk skip another pill unto off If GERD sxs increase go back to higher dose Chronic atrial fibrillation 08/22/2022 Fractures 02/09/2022 Overview (07/01/2022): Per ot: Fractures of ribs 3 and 4 (left side), Fractures of both wrists and left thumb Osteopenia 06/04/2021 Renal cyst, right 04/25/2019 History of basal cell carcinoma 06/13/2018 Overview (06/11/2024): BCC 06/21 left arm (superficial) Sees annually DR Jaguar Cardona Ma Severe major depression without psychotic featur es 02/09/2018 Overview (09/19/2024): 06/11/2024 PHQ-9 Total Score (Auto Calculated) 9 at 06/11/2024 3:26 PM sleeps well like log wakes up foggy and disoriented refer to Dr Fung for med review 08/22/2024 PHQ-9 Total Score (Auto Calculated) 7 at 08/22/2024 2:53 PM Clonazepam 1 mg at night started 12/383031 Increased hydroxyzine 25 mg at 4 pm [...] Date Resolved Date Major depression, recurrent, chronic 12/23/2013 06/08/2023 Overview (07/01/2022): [place] admission 09/2016, 05/2017, [facility] Ad[facility] 08/2017 - intentional overdose hx x2 , ECT therapy 05/2017, outside psychiatric care Dr Barry Encounters Date Type Department Care Team Description 06/18/2025 2:40 PM EDT Telemedicine Visit [facility] [address] [facility] [place] [address] Dillon Perez DO 06/12/2025 Interim Notes [facility] [address] [place] [phone] Larry Duke 06/09/2025 11:20 AM EDT Office Visit [facility] [address] [phone] Lani Sanz PA-C 06/09/2025 Patient Outreach [facility] [address] [place] [address] Aayn Edward, BELÉN 06/06/2025 Patient Outreach [facility] [address] [place] [address] Ayan Edward, BELÉN 06/06/2025 Interim Notes [facility] [address] [place] [address] Rosalva Reyes MD from Last 3 Months Immunizations Immunization Administration [...] Sign Reading Time Taken Comments Blood Pressure 133/54 06/09/2025 11:27 AM EDT Pulse 72 06/09/2025 11:27 AM EDT Temperature 36.7 C (98 F) 06/09/2025 11:27 AM EDT Respiratory Rate 16 06/09/2025 11:27 AM EDT Oxygen Saturation 94% 06/09/2025 11:27 AM EDT Inhaled Oxygen Concentration - - Weight 81.6 kg (180 lb) 09/24/2024 8:22 AM EST Height 162.6 cm (5' 4 ) 09/24/2024 8:22 AM EST Body Mass Index 30.9 09/24/2024 8:22 AM EST Plan of Treatment Upcoming Encounters Date Type Department Care Team (Late st Contact Info) Description 09/10/2025 3:20 PM EST Office Visit [facility] [address] [place] [address] Rosalva Reyes MD [address] [place] [address] Health Maintenance Due Date Last Done Comments LTBI Screening (#1) 1950 Tobacco Screening 1950 Urine Drug Screen 1950 Medicare Annual Wellness Visit 1968 Imm-Hepatitis A (1 of 2 - Ri sk 2-dose series) 1969 CT Colonography 11/30/1995 Colonoscopy 11/30/1995 Colorectal Cancer Screening 11/30/1995 FIT/gFOBT 11/30/1995 Fecal DNA 11/30/1995 Flexible Sigmoidoscopy 11/30/1995 Bone Density Screening 11/30/2015 Falls Prevention 08/03/2024 08/03/2023 Alcohol and Drug Screen 09/04/2024 08/03/2023 Depression Monitoring 11/20/2024 08/22/2024 , 06/11/2024, 05/09/2024, Additional history exists Pfo-HSCGO-40 ( season) 2025 06/11/2024, 06/20/2023, 05/30/2021, Additional history exists Imm-Influenza (#1) 2025 06/11/2024, 1 , 08/22/2022, Additional history exists Lipid Screening 09/19/2025 09/19/2024, 09/15/2022 Hypertension Screening (#1) 06/09/2026 Breast Cancer Screening (Mammogram) 08/08/2026 08/08/2024 Imm-DTaP/Tdap/Td (5 - Td or Tdap) 04/21/2032 04/21/2022, 08/16/2017, 02/25/2003, Additional history exists Imm-Pneumococcal 50+ Completed 02/10/2018, 08/16/20 17 Imm-Zoster, Recombinant Completed 05/03/2022, 07/10 Hepatitis C Screening Completed 06/08/2023 Procedures Procedure Name Priority Date/Time Associated Diagnosis Comments REFERRAL SCANNED DOCUMENT 06/17/2025 3:00 AM EDT IMAGING SCANNED DOCUMENT 06/17/2025 3:00 AM EDT IMAGING SCANNED DOCUMENT 06/17/2025 3:00 AM EDT OTHER ORDERS SCANNED DOCUMENT 06/10/2025 3:00 AM EDT MEDICATIONS SCANNED DOCUMENT 05/28/2025 3:00 AM EDT MEDICATIONS SCANNED DOCUMENT 05/28/2025 3:00 AM EDT LIPID PANEL Routine 09/19/2024 2:00 PM EST Mixed hyperlipidemia ACUTE HEPATITIS PANEL W/RFLX Routine 06/08/2023 1:29 PM EDT Screening for venereal disease from Last 3 Months or Most Recently Relevant to Health Maintenance Results * REFERRAL SCANNED DOCUMENT (06/17/2025 3:00 AM EDT) 06/17/2025 3:00 AM EDT us Rosalva Reyes MD SCAN REFERRAL Final Result * IMAGING SCANNED DOCUMENT (06/17/2025 3:00 AM EDT) Only the most recent of2 resultswithin the time period is included. 06/17/2025 3:00 AM EDT us Rosalva Reyes MD SCAN IMAGING Final Result * OTHER ORDERS SCANNED DOCUMENT (06/10/2025 3:00 AM EDT) 06/10/2025 3:00 AM EDT Rosalva Reyes MD SCAN OTHER ORDERS Latoya l Result * MEDICATIONS SCANNED DOCUMENT (05/28/2025 3:00 AM EDT) Only the most recent of2 resultswithin the time period is included. 05/28/2025 3:00 AM EDT [facility] SCAN MEDS OTHER ORDER S Final Result * LIPID PANEL (09/19/2024 2:00 PM EST) CHOLESTEROL, TOTAL 161 <200 mg/dL 09/20/2024 4:30 AM EST [employer] [facility] HDL CHOLESTEROL 62 > OR = 50 mg/dL 09/20/2024 4:30 AM EST [employer] [facility] TRIGLYCERIDES 70 <150 mg/dL 09/20/2024 4:30 AM EST [employer] [facility] LDL-CHOLESTEROL 84 mg/dL (calc) 09/20/2024 4:30 AM EST [employer] [facility] CHOL/HDLC RATIO 2.6 <5.0 (calc) 09/20/2024 4:30 AM EST [employer] [facility] NON-HDL CHOLESTEROL 99 <130 mg/dL (calc) 09/20/2024 4:30 AM EST [employer] [facility] Blood Blood / Unknown 09/19/2024 2 :00 PM EST 09/20/2024 2:42 AM EST Narrative [facility] - 09/20/2024 4:33 AM EST FASTING:YES Reference [...] LDL-C. Ata GATES et al. ELEUTERIO. 2013;310(19): 7935-9797 (http://education.musiXmatch.oBaz/faq/YBD249) For patients with diabetes plus 1 major ASCVD risk factor, treating to a non-HDL-C goal of <100 mg/dL (LDL-C of <70 mg/dL) is considered a therapeutic option. Caitlynmicaela [facility] - BLOOD DRAW Final Resul t Performing Organization Address [facility] Co de Phone Number [employer] [address] [address], [employer] [address] [address] * ACUTE HEPATITIS PANEL W/RFLX (06/08/2023 1:29 PM EDT) HEPATITIS A IGM ANTIBODY NON-REACT JCARLOS NON-REACT JCARLOS 06/09/2023 3:07 AM EDT [facility] HEPATITIS B SURFACE ANTIGEN NON-REACT JCARLOS NON-REACT JCARLOS 06/09/2023 3:07 AM EDT [employer] [facility] HEPATITIS B CORE IGM ANTIBODY NON-REACT JCARLOS NON-REACT JCARLOS 06/09/2023 3:07 AM EDT [employer] [facility] HEPATITIS C ANTIBODY NON-REACT JCARLOS NON-REACT JCARLOS 06/09/2023 3:07 AM EDT [employer] [facility] Blood Blood / Unknown 06/08/2023 1 :29 PM EDT 06/09/2023 1:31 AM EDT Narrative [employer] - 06/09/2023 4:41 AM EDT FASTING:UNKNOWN . HCV antibody was non-reactive. There is no laboratory evidence of HCV infection. . In most cases, no further action is required. However, if recent HCV exposure is suspected, a test for HCV RNA (test code 99974) is suggested. . For additional information please refer to http://education.Celiro.oBaz/faq/GLL54l5 (This link is being provided for informational/ educational purposes only.) . . For additional information, please refer to http://O2 Games.Celiro.oBaz/faq/JCG473 (This link is being provided for informational/ educational purposes only.) . Caitlyn [facility] - BLOOD DRAW Final Resul t Performing Organization Address [facility]/State/ZIP Co de Phone Number [facility] [address] [address], [facility] [address] [place] [address] from Last 3 Months or Most Recently Relevant to Health Maintenance Insurance [place]ARE - [place] [facility] Member Subscriber Plan / Payer (Ef fective 2022-Present) Name:Lucita Parekh Relation to Subscriber:Self Name:Lucita Parekh Payer ID:[id number] Group ID:Not on file Type:Indemnity Address: [address] [place] [id number] Advance Directives Documents on File Type Date Recorded Patient Cutting Inspector Expl anation Directives to Physicians 08/22/2024 12:00 AM CHRIS HCP Care Teams Duct Maker Relationship Specialty Start Date End Date Rosalva Reyes MD [address] [place] [address] PCP - General 12/17/24
--- OUTSIDE RECORDS SUMMARY | 2025-06-26 08:42 | XMS_ITS | Clinical Summary ---
Author Organization [address] Address [address] [place] [phone] Phone Care Team Providers Care Lining Closer Name Role Phone Luca Thibodeaux MD Primary [...] chronic (CMS/HCC V2 4) 12/23/2013 Overview (08/30/2024): [place] admission 09/2016, 05/2017, [facility] Ad[facility] 08/2017 [...] lt breast UPPER GASTROINTESTINAL ENDOSCOPY 2013 PROCEDURE: [place] UPPER GI ENDOSCOPY PERFORMED; COMMENT: normal UPPER GASTROINTESTINAL ENDOSCOPY 08/2001 PROCEDURE: [place] UPPER GI ENDOSCOPY PERFORMED; COMMENT: WNL APPENDECTOMY 01/2020 PROCEDURE: HISTORICAL APPENDECTOMY; COMMENT: [place] COLONOSCOPY 09/11/2020 PROCEDURE: HISTORICAL COLONOSCOPY; COMMENT: Minimal diverticulosis; 3 mm cecal polyp: Tubular adenoma. APPENDECTOMY PROCEDURE: [place] APPENDECTOMY Medical History Medical History Date Comments Irritable bowel syndrome DX:Irri table bowel syndrome; COMMENT: EGD, Colonoscopy (-)08/06/01 Lumbosacral spondylosis with out myelopathy DX:Lumbosacral spondylosis w ithout myelopathy Generalized osteoarthrosis, involving hand DX:Generalized osteoarthrosi s, involving hand Dermatophytosis of foot DX:[place] tophytosis of foot Iron deficiency anemia secon [...] DX:Major depression, recurre nt, chronic (HCC); COMMENT: [place] admission 09/2016, 05/2017, [facility] 08/2017 [...] is recommended in 1 year. MAMMO LOCATION: [facility], [address] [place] [address], [facility], . -------- FINAL REPORT -------- Dictated By: Domitila Joshua Dictated Date: 08/09/2024 15:18 ET Assigned Physician: Domitila Joshua Reviewed and Electronically Signed By: Domitila Joshua Signed Date: 08/09/2024 15:19 ET Workstation ID: [id number] Transcribed By: Self Edit Transcribed Date: 08/09/2024 [...] is recommended in 1 year. MAMMO LOCATION: [facility], [address] [place] [address], [address], . -------- FINAL REPORT -------- Dictated By: Domitila Joshua Dictated Date: 08/09/2024 15:18 ET Assigned Physician: Domitila Josuha Reviewed and Electronically Signed By: Domitila Joshua Signed Date: 08/09/2024 15:19 ET Workstation ID: [id number] Transcribed By: Self Edit Transcribed Date: 08/09/2024 15:18 ET Caitlyn Swanson NP IMG BI PROCEDURES Final Result * Hepatitis C Screening (09/15/2022) Pathologist [facility] Hepatitis C Screening Abstracted Historical Provider [...] (World Health Organization Fracture Risk Assessment) [facility] Department of Internal Medicine recommends using [...] (World Health Organization Fracture Risk Assessment) [facility] Department of Internal Medicine recommendsusing National [...] risk by FRAX. us Ena Egan MD [facility] DXA PROCEDURES Final Res ult * Hm Colonoscopy (09/11/2020) Colonoscopy No interpretation , Abstracted Anatomical Region Laterality Modality Other Historical Provider HEALTH MAINTENANCE Final Result from Last 3 Months or Most Recently Relevant to Health Maintenance Insurance MEDICARE [facility] [address] [place] [address] Care Teams Lining Closer Relationship Specialty Start Date End Date Luca Thibodeaux MD [address] [place] [address] PCP - General Internal Medicine 01/10/22
--- OUTSIDE RECORDS SUMMARY | 2025-06-26 08:43 | XMS_ITS | Encounter Summary ---
Author Organization [facility] Address [address] [place] [address] Care Team Providers Care Firer Marine Name Role Phone Rosalva Reyes MD Primary Care Provider Encounter Details Date Type Department Care Team (Late st Contact Info) Description 06/12/2025 Interim Notes [facility] [address] [place] [phone] Larry Duke [address] [place] [address] Social History Tobacco Use Types Packs/Day Years [...] as of this encounter Plan of Treatment Upcoming Encounters Date Type Department Care Team (Late st Contact Info) Description 09/10/2025 3:20 PM EST Office Visit [facility] [address] [place] [address] Rosalva Reyes MD [address] [place] [address] documented as of this encounter Visit Diagnoses Not on filedocumented in this encounter Additional Health Concerns Assessment Noted Time PHQ-9 Depression Total Score: 7 08/22/20 24 2:53 PM PST documented as of this encounter Care Teams Firer Marine Relationship Specialty Start Date End Date Rosalva Reyes MD [address] [place] [address] PCP - General 12/17/24 documented as of this encounter
--- OUTSIDE RECORDS SUMMARY | 2025-06-26 08:43 | XMS_ITS | Clinical Summary ---
Author Organization [facility] Address [address] [facility] [address] [place] [address] Phone Care Team Providers Care Telegraph Repeater Technician Name Role Phone Caitlyn Swanson NP Primary Care Provider [phone] Allergies No known active allergies Medications * [...] Description 02/25/2026 10:10 AM EDT Office Visit [facility] [address] [place] [address] Brianne Curtis MD, MPH [address] [facility], [facility] [address] [place] [address] [email or web address] Health Maintenance Due Date Last Done Comments [...] topic Medical Devices Not on file Insurance [facility] HMO MEDICARE PART A & B [facility] MEDIC[facility] PART A & B [facility] MEDICARE PART A & B [facility] Address: [address] [address] MEDICARE PART A & B [facility] Address: [address] [address] MEDICARE PART A & B [facility] Address: [address] [address] MEDICARE PART A & B [facility] Member Subscriber Plan / Payer (Ef fective 2017-Present) Name:BobzahiraChanel ozuna Relation to Subscriber:Self Name:CHANEL PAREKH Payer ID:Not on file Type:HMO Address: [place] [id number] MEDICARE PART A & B [facility] MEDICARE PART A & B [facility] HMO MEDICARE PART A & B Advance Directives For more information, please contact: [phone] (9AM - 5PM [facility], Monday-Monday) * Full Code (Presumed) (Latest Code Status on File) Date Activated Date Inactivated Comments 02/09/2018 11:50 PM 02/14/2018 1:55 PM Care Teams Telegraph Repeater Technician Relationship Specialty Start Date End Date Caitlyn Swanson NP [address] [place] [address] PCP - General Nurse Practitioner 12/19/24 Additional Source Comments The information contained in this document represents components of the legal health record. It is not the complete legal health record.[facility]
== END 2025-06-26 08:24 | disposition home or self-care (01) ==
LOC: HO.HOSX 08:23
PROVIDERS: Visit Provider Physician Assistant
DX: S42.001A Fracture of unspecified part of right clavicle, initial encounter for closed fracture (principal); M17.11 Unilateral primary osteoarthritis, right knee; Z96.651 Presence of right artificial knee joint; W19.XXXA Unspecified fall, initial encounter
CPT/HCPCS: 73000; 73560; 73562; 99212

== ENCOUNTER 2025-06-26 13:57 | Outpatient (AMB) | payer MEDICARE, OTHER, SELFPAY ==
--- OUTSIDE RECORDS SUMMARY | 2025-05-14 11:00 | XMS_ITS ---
Author Organization [facility] Address [address] [place] [phone] Care Team Providers Care Energy Efficiency Engineer Name Role Phone Hilda KYLE, Nallely Primary Care Provider Kaye BETO Borja Unavailable [phone] REASON FOR VISIT Left Knee pain/ [facility] Encounters Encounter Location Date Provider Diagnosis [facility] [address] [place] [phone] 05/14/2025 BETO LAM Plan Of Treatment No Information Progress Notes * Lucita PAREKHDOB:[birth year] (74 yo F)Acc No.[id number]:05/14/2025 Patient: Lucita CHANEL Provider: Hari LAM MD :1950 A ge:74 Y S ex:Female Date:05/14/2025 Address:[address] [place], [place] [phone] Pcp:Nallely Stevens NP Subjective: * Chief Complaints: * 1 . Left Knee pain/ [facility] * Medical History: Objective: * Vitals: Assessment: Plan: * Treatment: * * Electronic signature of TYSHAWN LAM M.D. on 06/26/2025 at 05:50 PM EDT Sign off status: Pending * Provider: Hari LAM MD Date: 0 05/14/2025 Generated for Kirsten rhodes/Kodak/Janell on: 1 05:50 PM EDT
--- NOTE | 2025-06-26 14:29 | MHC.OFFVIS ---
Vital Signs 06/26/25 14:41 Height 5 ft 6 in Weight 162 lb BMI 26.1 Intake Visit Reasons: ED/UC f/u RT knee Injury s/p fall 05/22/25 Intake Note: Lucita is a 74 year old right hand dominant female who presents today for an evaluation of right knee injury status post fall on 05/22/25. Patient reports that she was initially seen in the [facility] and was diagnosed with a right clavicle and rib fractures, she was placed in sling. Today patient reports at the time of her fall she did not experience knee pain however a couple of days she noticed that she was unable to flex her toes and ankle. Denies pain. Hx of right TKA her at [facility]. She mentions improvement in clavicle pain. Allergies No Known Allergies (No Known Allergies*) Allergy (Verified 06/26/25 14:41) HPI HPI ED/UC f/u RT knee Injury s/p fall 05/22/25: Details: 74 yo female presents to the office today for an injury she sustained to her right clavicle on 05/22/25. She states she was seen in the ED , xrays were obtained and she was dx with a right clavicle fx and placed in a sling. She is also s/p RT TKA with Dr Hennessy on 11/02/21 and states when she fell she also injured the knee. As time passed, she noticed she has been unable to dorsiflex the right foot with walking and at rest. She denies numbness or tingling. She denies instability of the right knee. [facility] Medical History Gait apraxia Arthritis of left knee Gait disturbance HTN (hypertension) Osteoarthritis IBS (irritable bowel syndrome) Major depression, recurrent, chronic Vitamin D deficiency Abnormal gait Pure hypercholesterolemia Severe major depression without psychotic features Hx of basal cell carcinoma Osteopenia Paroxysmal atrial fibrillation Surgical History History of esophagogastroduodenoscopy (EGD) Hx of colonoscopy Hx of breast biopsy Hx of hysterectomy Hx of appendectomy Family History Father No problems noted. Mother No problems noted. Social History Are you a primary landcare officer to a significant other at home: No Do you presently have visiting nurse or other home services: Yes (STUDENT CAREER DEVELOPMENT SPECIALIST 4 hours per week) Comment: aware of trip hazard Patient Tobacco Use Status: Former Tobacco user Tobacco use type: Cigarette Advance Directives Date on File: 11/11/21 service: No Current occupational status: retired Current occupation: rt handed Review of Systems Const All systems reviewed & are unremarkable except as noted in HPI and below Physical Exam Vital Signs: BMI result Body Mass Index 26.1 Const General: cooperative and no acute distress Orientation/consciousness: patient oriented x3 Resp Effort & Inspection: normal respiratory effort and able to speak in complete sentences Cardio Peripheral pulses: Peripheral pulses 2+ throughout Neuro General: patient oriented x3 Extrem Other: Right Clavicle No tenting. No skin breakdown. There is tenderness over the fracture site along with bony prominence. Neurovascularly intact. Right knee surgical scar present. No joint effusion. No laxity. Full ROM with good tracking . She is able to fire EHL and dorsiflex with weakness. NVI. Office Procedures AMB Fracture Care Fracture Billing Code: Fracture Billing Code Results Reviewed Results Reviewed: Xrays were obtained in the office today and personally reviewed by me of the right clavicle show distal and proximal fracture with displacement Xrays were obtained in the office today and personally reviewed by me of the right knee show intact prosthesis without signs of fracture, dislocation or loosening Assessment & Plan Assessment & Plan (1) Status post total right knee replacement: Code(s): Z96.651 - Presence of right artificial knee joint Category: Surgical (2) Right clavicle fracture: Code(s): S42.001A - Fracture of unspecified part of right clavicle, initial encounter for closed fracture Category: Medical Plan Dr Hennessy was available to see the patient with me today. In regards to her clavicle fracture, there is some interval healing that is taking place and the alignment is acceptable for optimal functioning. She was advised to d/c the use of the sling. She will work on gentle ROM at the level of her chest, nothing above shoulder height and no lifting and periscapular strengthening. As for her RLE, she does have function but it is important she continue to work on dorsiflexion and desensitization techniques to improve nerve function She expressed understanding and will see us back in 4-6 weeks with repeat xrays of her clavicle, sooner if needed. Orders: Orders XR knee RT 3V 06/26/25 M17.11 - Unilateral primary osteoarthritis, right knee XR knee RT 1V 06/26/25 M25.561 - Pain in right knee XR clavicle RT 06/26/25 S42.009A - Fracture of unspecified part of unspecified clavicle, initial encounter for closed fracture Coding Level of Care Code Est Pt Level 3 (62803) Complex EM visit Add On G2211 Diagnoses Status post total right knee replacement Z96.651 Right clavicle fracture S42.001A CPT Codes Fracture Care - Fracture Billing Code: Fracture Billing Code ([id number])
[2025-06-26 14:41] VITALS: BMI 26.1
--- OUTSIDE RECORDS SUMMARY | 2025-06-26 17:50 | XMS_ITS | Encounter Summary ---
Author Organization [facility] Address [address] [place] [address] Care Team Providers Care Hearings Reporter Name Role Phone Rosalva Reyes MD Primary Care Provider Encounter Details Date Type Department Care Team (Late st Contact Info) Description 06/12/2025 Interim Notes [facility] [address] [place] [phone] Larry Duke [address] [place] [address] Social History Tobacco Use Types Packs/Day Years [...] Visit [facility] [address] [place] [facility] [address] Rosalva Reyes MD [address] [place] [address] documented as of this encounter Visit Diagnoses Not on filedocumented in this encounter Additional Health Concerns Assessment Noted Time PHQ-9 Depression Total Score: 7 08/22/20 24 2:53 PM PST documented as of this encounter Care Teams Hearings Reporter Relationship Specialty Start Date End Date Rosalva Reyes MD [address] [place] [address] PCP - General 12/17/24 documented as of this encounter
--- OUTSIDE RECORDS SUMMARY | 2025-06-26 17:50 | XMS_ITS | Clinical Summary ---
Author Organization [address] Address [address] [place] [phone] Phone Care Team Providers Care Pipe Bender Name Role Phone Luca Thibodeaux MD Primary [...] chronic (CMS/HCC V2 4) 12/23/2013 Overview (08/30/2024): [place] admission 09/2016, 05/2017, [facility] Ad[facility] 08/2017 [...] lt breast UPPER GASTROINTESTINAL ENDOSCOPY 2013 PROCEDURE: [place] UPPER GI ENDOSCOPY PERFORMED; COMMENT: normal UPPER GASTROINTESTINAL ENDOSCOPY 08/2001 PROCEDURE: [place] UPPER GI ENDOSCOPY PERFORMED; COMMENT: WNL APPENDECTOMY 01/2020 PROCEDURE: HISTORICAL APPENDECTOMY; COMMENT: [place] COLONOSCOPY 09/11/2020 PROCEDURE: HISTORICAL COLONOSCOPY; COMMENT: Minimal diverticulosis; 3 mm cecal polyp: Tubular adenoma. APPENDECTOMY PROCEDURE: [place] APPENDECTOMY Medical History Medical History Date Comments Irritable bowel syndrome DX:Irri table bowel syndrome; COMMENT: EGD, Colonoscopy (-)08/06/01 Lumbosacral spondylosis with out myelopathy DX:Lumbosacral spondylosis w ithout myelopathy Generalized osteoarthrosis, involving hand DX:Generalized osteoarthrosi s, involving hand Dermatophytosis of foot DX:[place] tophytosis of foot Iron deficiency anemia secon [...] DX:Major depression, recurre nt, chronic (HCC); COMMENT: [place] admission 09/2016, 05/2017, [facility] Admission 08/2017 [...] is recommended in 1 year. MAMMO LOCATION: [place] [facility], [address] [place] [address], [facility], . -------- FINAL REPORT -------- Dictated By: Domitila Joshua Dictated Date: 08/09/2024 15:18 ET Assigned Physician: Domitila Joshua Reviewed and Electronically Signed By: Domitila Joshua Signed Date: 08/09/2024 15:19 ET Workstation ID: [id number] Transcribed By: Self Edit Transcribed Date: 08/09/2024 [...] is recommended in 1 year. MAMMO LOCATION: [facility], [address] [place] [address], [address], . -------- FINAL REPORT -------- Dictated By: Domitila Joshua Dictated Date: 08/09/2024 15:18 ET Assigned Physician: Domitila Joshua Reviewed and Electronically Signed By: Domitila Joshua Signed Date: 08/09/2024 15:19 ET Workstation ID: [id number] Transcribed By: Self Edit Transcribed Date: 08/09/2024 15:18 ET Caitlyn Swanson NP IMG BI PROCEDURES Final Result * Hepatitis C Screening (09/15/2022) Pathologist [facility] Hepatitis C Screening Abstracted Historical Provider HEALTH [...] (World Health Organization Fracture Risk Assessment) [facility] Department of Internal Medicine recommends using National [...] (World Health Organization Fracture Risk Assessment) [facility] Department of Internal Medicine recommendsusing National Osteoporosis [...] risk by FRAX. us Ena Egan MD [facility] DXA PROCEDURES Final Res ult * Hm Colonoscopy (09/11/2020) Colonoscopy No interpretation , Abstracted Anatomical Region Laterality Modality Other Historical Provider HEALTH MAINTENANCE Final Result from Last 3 Months or Most Recently Relevant to Health Maintenance Insurance MEDICARE [facility] [address] [place] [address] Care Teams Pipe Bender Relationship Specialty Start Date End Date Luca Thibodeaux MD [address] [place] [address] PCP - General Internal Medicine 01/10/22
--- OUTSIDE RECORDS SUMMARY | 2025-06-26 17:50 | XMS_ITS | Clinical Summary ---
Author Organization [facility] Address [address] [place] [address] Care Team Providers Care Bore Mill Operator For Plastic Name Role Phone Rosalva Reyes MD Primary [...] healing, unspecified laterality, subsequent encounter Place 1 [place] into the nostril(s) as needed for opioid [...] PM Clonazepam 1 mg at night started 12/860319 Increased hydroxyzine 25 mg at 4 pm [...] depression, recurrent, chronic 12/23/2013 06/08/2023 Overview (07/01/2022): [place] admission 09/2016, 05/2017, [facility] Admission 08/2017 - intentional overdose hx x2 , ECT therapy 05/2017, outside psychiatric care Dr Barry Encounters Date Type Department Care Team Description 06/18/2025 2:40 PM EDT Telemedicine Visit [facility] [address] [facility] [place] [address] Dillon Perez DO 06/12/2025 Interim Notes [facility] [address] [place] [phone] Larry Duke 06/09/2025 11:20 AM EDT Office Visit [facility] [address] [place] [phone] Lani Sanz PA-C 06/09/2025 Patient Outreach [facility] [address] [place] [address] Ayan Edward, BELÉN 06/06/2025 Patient Outreach [facility] [address] [place] [address] Ayan Edward, BELÉN 06/06/2025 Interim Notes [facility] [address] [place] [address] Rosalva Reyes MD from Last [...] PM EST Office Visit [facility] [address] [place] [address] Rosalva Reyes MD [address] [place] [address] Health Maintenance Due Date Last Done Comments [...] 08/22/2024 , 06/11/2024, 05/09/2024, Additional history exists [id number] ( season) 2025 06/11/2024, 06/20/2023, 05/30/2021, Additional [...] 161 <200 mg/dL 09/20/2024 4:30 AM EST [employer] [facility] HDL CHOLESTEROL 62 > OR = 50 mg/dL 09/20/2024 4:30 AM EST [employer] [facility] TRIGLYCERIDES 70 <150 mg/dL 09/20/2024 4:30 AM EST [employer] [facility] LDL-CHOLESTEROL 84 mg/dL (calc) 09/20/2024 4:30 AM EST [employer] [facility] CHOL/HDLC RATIO 2.6 <5.0 (calc) 09/20/2024 4:30 AM EST [employer] [facility] NON-HDL CHOLESTEROL 99 <130 mg/dL (calc) 09/20/2024 4:30 AM EST [employer] [facility] Blood Blood / Unknown 09/19/2024 2 :00 PM EST 09/20/2024 2:42 AM EST Narrative [employer] [facility] - 09/20/2024 4:33 AM EST FASTING:YES [...] LDL-C. Ata GATES et al. ELEUTERIO. 2013;310(19): 7594-8398 (http://education.[employer].Drill Cycle/faq/UWM260) For patients with diabetes plus 1 major ASCVD risk factor, treating to a non-HDL-C goal of <100 mg/dL (LDL-C of <70 mg/dL) is considered a therapeutic option. Caitlynmicaela [facility] - BLOOD DRAW Final Resul t Performing Organization Address [facility] Co de Phone Number [employer] [address] [address], [employer] [address] [address] * ACUTE HEPATITIS PANEL W/RFLX (06/08/2023 1:29 PM EDT) HEPATITIS A IGM ANTIBODY NON-REACT JCARLOS NON-REACT JCARLOS 06/09/2023 3:07 AM EDT [employer] [facility] HEPATITIS B SURFACE ANTIGEN NON-REACT JCARLOS NON-REACT JCARLOS 06/09/2023 3:07 AM EDT [employer] [facility] HEPATITIS B CORE IGM ANTIBODY NON-REACT JCARLOS NON-REACT JCARLOS 06/09/2023 3:07 AM EDT [employer] [facility] HEPATITIS C ANTIBODY NON-REACT JCARLOS NON-REACT JCARLOS 06/09/2023 3:07 AM EDT [employer] [facility] Blood Blood / Unknown 06/08/2023 1 :29 PM EDT 06/09/2023 1:31 AM EDT Narrative [employer] [facility] - 06/09/2023 4:41 AM EDT FASTING:UNKNOWN . HCV antibody was non-reactive. There is no laboratory evidence of HCV infection. . In most cases, no further action is required. However, if recent HCV exposure is suspected, a test for HCV RNA (test code 50847) is suggested. . For additional information please refer to http://education.Total [employer].Drill Cycle/faq/SVC68d8 (This link is being provided for informational/ educational purposes only.) . . For additional information, please refer to http://[employer].Drill Cycle/faq/AOM851 (This link is being provided for informational/ educational purposes only.) . Caitlyn [facility] - BLOOD DRAW Final Resul t Performing Organization Address [facility]/State/ZIP Co de Phone Number [facility] [address] [address], [facility] [address] [place] [address] from Last 3 Months or Most Recently Relevant to Health Maintenance Insurance MEDICARE - [facility] Member Subscriber Plan / Payer (Ef fective 2022-Present) Name:Lucita Parekh Relation to Subscriber:Self Name:Lucita Parekh Payer ID:[id number] Group ID:Not on file Type:Indemnity Address: [address] [place] [address] Advance Directives Documents on File Type Date Recorded Patient Special Services Director Expl anation Directives to Physicians 08/22/2024 12:00 AM [facility] HCP Care Teams Bore Mill Operator For Plastic Relationship Specialty Start Date End Date Rosalva Reyes MD [address] [place] [address] PCP - General 12/17/24
--- OUTSIDE RECORDS SUMMARY | 2025-06-26 17:50 | XMS_ITS | Patient Health Record ---
Author Organization [facility] Address [address] [place] [address] Care Team Providers Care Faa Certified Powerplant Mechanic Name Role Phone Hilda KYLE, Nallely Primary Care Provider Kaye martinsyaniraBETO Ling Unavailable [phone] Reason For Referral No Information Medications Medication [...] Status Risk Notes Problem Right shoulder pain ([id number]) Right shoulder pain (M25.511) Active confirmed Problem Left shoulder pain (1063846023) Left shoulder pain (M25.512) Active confirmed Problem Abnormal gait (54325823) Balance disorder (R26.89) Active confirmed Problem Right [...] Date Medicare [address] [place] [address] [id number] Lucita Young Self - patient is the insured [facility] [address] [facility] [address] [phone] [id number] Lucita Young Self - patient is the [...]
--- OUTSIDE RECORDS SUMMARY | 2025-06-26 17:50 | XMS_ITS | Clinical Summary ---
Author Organization [facility] Address [address] [facility] [address] [place] [address] Phone Care Team Providers Care Thread Singer Name Role Phone Caitlyn Swanson NP Primary Care Provider [phone] Allergies No known active allergies Medications * [...] Description 02/25/2026 10:10 AM EDT Office Visit [facility] Rheumatology [address] [place] [address] Brianne Curtis MD, MPH 22 [facility], [facility] [address] [place] [address] [email or web address] Health Maintenance Due Date Last Done Comments [...] topic Medical Devices Not on file Insurance [facility] MEDICARE PART A & B [facility] MED[facility] A & B [facility] MEDICARE PART A & B O MEDICARE PART A & B O MEDICARE PART A & B [facility] MEDICARE PART A & B [facility] Member Subscriber Plan / Payer (Ef fective 2017-Present) Name:BobzahiraChanel ozuna Relation to Subscriber:Self Name:CHANEL PAREKH Payer ID:Not on file Type:HMO Address: [place] [id number] MEDICARE PART A & B [facility] MEDICARE PART A & B [facility] H[facility] MEDICARE PART A & B Advance Directives For more information, please contact: [phone] (9AM - 5PM [facility], Monday-Monday) * Full Code (Presumed) (Latest Code Status on File) Date Activated Date Inactivated Comments 02/09/2018 11:50 PM 02/14/2018 1:55 PM Care Teams Thread Singer Relationship Specialty Start Date End Date Caitlyn Swanson NP [address] [place] [address] PCP - General Nurse Practitioner 12/19/24 Additional Source Comments The information contained in this document represents components of the legal health record. It is not the complete legal health record.[facility]
== END 2025-06-26 15:56 | disposition home or self-care (01) ==
LOC: HO.HOS 13:58
PROVIDERS: PCP Family Medicine; Visit Provider Physician Assistant
DX: M25.561 Pain in right knee (principal); Z96.651 Presence of right artificial knee joint; S42.001A Fracture of unspecified part of right clavicle, initial encounter for closed fracture
CPT/HCPCS: 99213; G2211

== ENCOUNTER → 2025-06-26 14:04 | Outpatient (BNV) | payer MEDICARE, OTHER, SELFPAY | PROVIDERS: Visit Provider Radiology Diagnostic Radiology | DX: M25.561 Pain in right knee (principal); Z96.651 Presence of right artificial knee joint | CPT/HCPCS: 73560 ==

== ENCOUNTER → 2025-06-30 09:42 | Outpatient (REF) | payer MEDICARE, OTHER, SELFPAY ==
--- NOTE | ~2025-06-30 | NM_ITS ---
EXAMINATION: TC-PYP CARDIAC STUDY CLINICAL INFORMATION: Evaluation for cardiac amyloidosis. 74 years old Female with increased LV wall thickness with atrial fibrillation COMPARISON None available. TECHNIQUE: 25 mCi of Tc-99m pyrophosphate was injected intravenously. Planar images of the chest were obtained in the anterior and left lateral views at 3 hours. SPECT-CT images of the chest were also obtained. Total DLP 78 mGy-cm FINDINGS: 1. Image Quality: Adequate 2. Semi-quantitative visual scoring of the cardiac uptake is performed as follows: 0 = absent cardiac uptake and intense bone uptake 3. H-CL Ratio if Applicable: Not applicable 4. Ancillary Finds: Calcifications noted in the aorta as well as the coronary arteries NM/NM PYP Card Amyld SPECT w CT IMPRESSION: 1. The uptake in the myocardium, likelihood of ATTR type of amyloidosis is very low 2. Please note that the Tc-99m PYP is more sensitive in detecting transthyretin-related cardiac amyloidosis than that of light-chain cardiac amyloidosis. Electronically signed by: Brandt Correia MD 07/02/2025 10:29 AM EDT
--- OUTSIDE RECORDS SUMMARY | 2025-06-30 11:03 | XMS_ITS | Clinical Summary ---
Author Organization [address] Address [address] [place] [id number] Phone Care Team Providers Care Airport Operations Officer Name Role Phone Luca Thibodeaux MD [...] chronic (CMS/HCC V2 4) 12/23/2013 Overview (08/30/2024): [facility] admission 09/2016, 05/2017, [facility] Admission 08/2017 [...] WNL APPENDECTOMY 01/2020 PROCEDURE: HISTORICAL APPENDECTOMY; COMMENT: [facility] COLONOSCOPY 09/11/2020 PROCEDURE: HISTORICAL COLONOSCOPY; COMMENT: Minimal diverticulosis; 3 mm cecal polyp: Tubular adenoma. APPENDECTOMY PROCEDURE: HI APPENDECTOMY Medical History Medical History Date Comments Irritable bowel syndrome DX:Irri table bowel syndrome; COMMENT: EGD, Colonoscopy (-)08/06/01 Lumbosacral spondylosis with out myelopathy DX:Lumbosacral spondylosis w ithout myelopathy Generalized osteoarthrosis, involving hand DX:Generalized osteoarthrosi s, involving hand Dermatophytosis of foot DX:[place] tophytosis of foot Iron deficiency anemia secon [...] DX:Major depression, recurre nt, chronic (HCC); COMMENT: [facility] admission 09/2016, 05/2017, [facility] Admission 08/2017 [...] is recommended in 1 year. MAMMO LOCATION: [facility], [address] [place] [address], [facility], . -------- FINAL REPORT -------- Dictated By: Domitila Joshua Dictated Date: 08/09/2024 15:18 ET Assigned Physician: Domitila Joshua Reviewed and Electronically Signed By: Domitila Joshua Signed Date: 08/09/2024 15:19 ET Workstation ID: [id number] Transcribed By: Self Edit Transcribed Date: 08/09/2024 [...] is recommended in 1 year. MAMMO LOCATION: [facility], [address] [place] [address], [address], . -------- FINAL REPORT -------- Dictated By: Domitila Joshua Dictated Date: 08/09/2024 15:18 ET Assigned Physician: Domitila Joshua Reviewed and Electronically Signed By: Domitila Joshua Signed Date: 08/09/2024 15:19 ET Workstation ID: [id number] Transcribed By: Self Edit Transcribed Date: 08/09/2024 15:18 ET Caitlyn Swanson NP IMG BI PROCEDURES Final Result * Hepatitis C Screening (09/15/2022) Pathologist [facility] Hepatitis C Screening Abstracted Historical Provider [...] (World Health Organization Fracture Risk Assessment) The [facility] Department of Internal Medicine recommends using National [...] (World Health Organization Fracture Risk Assessment) The [facility] Department of Internal Medicine recommendsusing National Osteoporosis [...] risk by FRAX. us Ena Egan MD [facility] [place]XA PROCEDURES Final Res ult * Hm Colonoscopy (09/11/2020) Colonoscopy No interpretation , Abstracted Anatomical Region Laterality Modality Other Historical Provider HEALTH MAINTENANCE Final Result from Last 3 Months or Most Recently Relevant to Health Maintenance Insurance MEDICARE [facility] [address] [place] [address] Care Teams Airport Operations Officer Relationship Specialty Start Date End Date Luca Thibodeaux MD [address] [place] [address] PCP - General Internal Medicine 01/10/22
--- OUTSIDE RECORDS SUMMARY | 2025-06-30 11:04 | XMS_ITS | Clinical Summary ---
Author Organization [facility] Address [address] [facility] [address] [place] [address] Phone Care Team Providers Care Salvage Grinder Name Role Phone Caitlyn Swanson NP Primary [...] 02/25/2026 10:10 AM EDT Office Visit [facility] Rheumatology [address] [place] [address] Brianne Curtis MD, MPH 22 [facility], [facility] [address] [place] [address] [email or web address] Health Maintenance Due Date Last Done Comments [...] topic Medical Devices Not on file Insurance [facility] PART A & B [facility] MED[facility] PART A & B [facility] Address: [address] [address] MEDICARE PART A & B [facility] Address: [address] [address] MEDICARE PART A & B [facility] Address: [address] [address] MEDICARE PART A & B [facility] Member Subscriber Plan / Payer (Ef fective 2017-Present) Name:BobzahiraChanel ozuna Relation to Subscriber:Self Name:CHANEL PAREKH Payer ID:Not on file Type:HMO Address: [place] [id number] MEDICARE PART A & B [facility] MEDIC[facility] PART A & B [facility] MEDIC[facility] PART A & B Member Subscriber Plan / Payer (Ef fective 2015-Present) Name:Chanel Parekh Member ID:[id number] Relation to Subscriber:Self Name:Chanel Parekh Subscriber ID:[id number] Payer ID:[id number] Group ID:Not on file Type:Medicare Address: [employer] [facility]. [address] [place] [address] Advance Directives For more information, please contact: [phone] (9AM - 5PM [facility], Monday-Monday) * Full Code (Presumed) (Latest Code Status on File) Date Activated Date Inactivated Comments 02/09/2018 11:50 PM 02/14/2018 1:55 PM Care Teams Salvage Grinder Relationship Specialty Start Date End Date Caitlyn Swanson NP [address] [place] [address] PCP - General Nurse Practitioner 12/19/24 Additional Source Comments The information contained in this document represents components of the legal health record. It is not the complete legal health record.[facility]
== END ==
LOC: HO.NUCMED 09:42
PROVIDERS: PCP Family Medicine; Visit Provider Internal Medicine Cardiovascular Disease
DX: I48.0 Paroxysmal atrial fibrillation (principal); I51.7 Cardiomegaly
CPT/HCPCS: 78830; A9538

== ENCOUNTER → 2025-06-30 09:45 | Outpatient (BNV) | payer MEDICARE, OTHER, SELFPAY | PROVIDERS: PCP Family Medicine; Visit Provider Internal Medicine Cardiovascular Disease | DX: E85.4 Organ-limited amyloidosis (principal); I48.91 Unspecified atrial fibrillation | CPT/HCPCS: 78830 ==

== ENCOUNTER 2025-07-16 13:56 | Outpatient (AMB) | payer MEDICARE, OTHER, SELFPAY ==
--- OUTSIDE RECORDS SUMMARY | 2025-05-14 10:00 | XMS_ITS ---
Author Organization [facility] Address [address] [place] [phone] Care Team Providers Care Agricultural Chemist Name Role Phone Hilda KYLE, Nallely Primary Care Provider Kaye BETO Borja Unavailable [phone] REASON FOR VISIT Left Knee pain/ OA [facility] Encounters Encounter Location Date Provider Diagnosis [facility] [address] [place] [phone] 05/14/2025 BETO LAM Plan Of Treatment No Information Progress Notes * Lucita PAREKHDOB:[birth year] (74 yo F)Acc No.[id number]:05/14/2025 Patient: Lucita CHANEL Provider: Hari LAM MD :1950 A ge:74 Y S ex:Female Date:05/14/2025 Address:[address] [place], [place] [phone] Pcp:Nallely Stevens NP Subjective: * Chief Complaints: * 1 . Left Knee pain/ OA [facility] * Medical History: Objective: * Vitals: Assessment: Plan: * Treatment: * * Electronic signature of TYSHAWN LAM M.D. on 07/16/2025 at 05:09 PM EST Sign off status: Pending * Provider: Hari LAM MD Date: 0 05/14/2025 Generated for Kirsten rhodes/Kodak/Janell on: 1 09/15/2024 05:09 PM EST
--- NOTE | 2025-07-16 14:02 | A.OFFVIS_ITS ---
Vital Signs 07/16/25 14:03 Height 5 ft 6 in Weight 162 lb BMI 26.1 Intake Visit Reasons: OV-RT knee Injury s/p fall 05/22/25-4wk f/u Intake Note: Lucita is a 74 year old female who presents today as a follow up for her right knee Injury s/p fall 05/22/25. At her last visit she was recommended to perform gentle ROM at the level of her chest, nothing above shoulder height and no lifting and periscapular strengthening. Follow up in 4 weeks. Today patient reports she is not doing well, stating her pain has been traveling up her neck and down her back. She has a history of numbness and tingling in hands. Allergies No Known Allergies (No Known Allergies*) Allergy (Verified 07/16/25 14:19) Medication List - Last Reconciled 07/16/25 by Glory Ramey PA-C acetaminophen 1,000 mg PO TID apixaban (Eliquis) 5 mg PO BID atorvastatin 20 mg PO DAILY cholecalciferol (vitamin D3) 25 mcg PO DAILY clonazepam mg PO dextroamphetamine-amphetamine 10 mg ER 1 cap PO QAM gabapentin 100 mg PO BEDTIME hydroxyzine pamoate 25 mg PO BEDTIME melatonin 9 mg PO BEDTIME metoprolol succinate ER 50 mg PO DAILY [Neoprene wrist sleeve As directed] pantoprazole 40 mg PO DAILY@0630 prazosin 5 mg PO BEDTIME solifenacin 10 mg PO DAILY tramadol 50 mg PO BID PRN 7 days venlafaxine ER 150 mg PO DAILY walker Rollator walker with seat and breaks walker Folding Front wheeled walker HPI HPI OV-RT knee Injury s/p fall 05/22/25-4wk f/u: Details: 74-year-old female returns to the office today for a follow-up right clavicle fracture date of injury 05/22/2025. She has been modifying her activity and using tramadol for pain twice a day. She is complaining of some tension and pain from the clavicle into the neck. Otherwise she is doing well. Right lower extremity function improving. [facility] Medical History Gait apraxia Arthritis of left knee Gait disturbance HTN (hypertension) Osteoarthritis IBS (irritable bowel syndrome) Major depression, recurrent, chronic Vitamin D deficiency Abnormal gait Pure hypercholesterolemia Severe major depression without psychotic features Hx of basal cell carcinoma Osteopenia Paroxysmal atrial fibrillation Surgical History History of esophagogastroduodenoscopy (EGD) Hx of colonoscopy Hx of breast biopsy Hx of hysterectomy Hx of appendectomy Family History Father No problems noted. Mother No problems noted. Social History Are you a primary career services coordinator to a significant other at home: No Do you presently have visiting nurse or other home services: Yes ([employer] 4 hours per week) Comment: aware of trip hazard Patient Tobacco Use Status: Former Tobacco user Tobacco use type: Cigarette Advance Directives Date on File: 11/11/21 service: No Current occupational status: retired Current occupation: rt handed Review of Systems Const All systems reviewed & are unremarkable except as noted in HPI and below Physical Exam Vital Signs: BMI result Body Mass Index 26.1 Const General: cooperative and no acute distress Orientation/consciousness: patient oriented x3 Resp Effort & Inspection: normal respiratory effort and able to speak in complete sentences Cardio Peripheral pulses: Peripheral pulses 2+ throughout Neuro General: patient oriented x3 Extrem Other: Right Clavicle No tenting. No skin breakdown. There is slight tenderness over the fracture site along with bony prominence. Neurovascularly intact. Results Reviewed Results Reviewed: Xrays were obtained in the office today and personally reviewed by me of the [facility] clavicle show stable distal and proximal fracture with displacement Assessment & Plan Assessment & Plan (1) Right clavicle fracture: Code(s): S42.001A - Fracture of unspecified part of right clavicle, initial encounter for closed fracture Category: Medical Qualifiers: Encounter type: subsequent encounter Fracture type: closed Fracture alignment: displaced Fracture healing: with routine healing Plan: We will continue with conservative management. An order for physical therapy has been placed to work on scapular stabilization and cervical range of motion and stretching techniques. I explained to the patient it is common to have some neck pain and numbness associated with clavicle fractures due to the inflammation/irritation of the surrounding soft tissues. I did place an order for physical therapy and she will call to make an appointment. I will see her back in 4 weeks with x-rays of the right clavicle, sooner if needed. Refill for tramadol was placed today. Orders: Orders PT Evaluation and Treatment Today S42.001A - Fracture of unspecified part of right clavicle, initial encounter for closed fracture XR clavicle RT Today S42.009A - Fracture of unspecified part of unspecified clavicle, initial encounter for closed fracture Coding Level of Care Code Global (42248) Diagnoses Right clavicle fracture S42.001A Encounter type: subsequent encounter Fracture type: closed Fracture alignment: displaced Fracture healing: with routine healing
[2025-07-16 14:03] VITALS: BMI 26.1
--- OUTSIDE RECORDS SUMMARY | 2025-07-16 17:09 | XMS_ITS | Clinical Summary ---
Author Organization [facility] Address [address] [facility] [address] [place] [address] Phone Care Team Providers Care Rn Hospice Name Role Phone Caitlyn Swanson NP Primary [...] Description 02/25/2026 10:10 AM EDT Office Visit [facility] Rheumatology [address] [place] [address] Brianne Curtis MD, MPH 22 [facility] [place] [address] [place] [address] [email or web address] Health Maintenance Due Date Last Done Comments [...] patient's age to complete this topic IPV VACCINES Aged Out No longer eligi ble based on patient's age to complete this topic MENINGOCOCCAL VACCINES (ACWY) Aged Out No longer eligible based on patient's age to complete this topic MENINGOCOCCAL VACCINES (B) Aged Out N o longer eligible based on patient's age to complete this topic Medical Devices Not on file Insurance [facility] H[facility] MEDICARE PART A & B [facility] Address: [place] [address] MEDICARE PART A & B [facility] MEDICARE PART A & B Member Subscriber Plan / Payer (Ef fective 2015-Present) Name:Chanel Parekh Member ID:[id number] Relation to Subscriber:Self Name:Chanel Parekh Subscriber ID:[id number] Payer ID:[id number] Group ID:Not on file Type:Medicare Address: [facility] [address] [place] [address] [facility] Address: [address] [address] MEDICARE PART A & B Member Subscriber Plan / Payer (Ef fective 2015-Present) Name:Chanel Parekh Member ID:[id number] Relation to Subscriber:Self Name:Chanel Parekh Subscriber ID:[id number] Payer ID:[id number] Group ID:Not on file Type:Medicare Address: [facility] [address] [place] [address] [facility] PART A & B Member Subscriber Plan / Payer (Ef fective 2015-Present) Name:Chanel Parekh Member ID:[id number] Relation to Subscriber:Self Name:Chanel Parekh Subscriber ID:[id number] Payer ID:[id number] Group ID:Not on file Type:Medicare Address: [facility] [address] [place] [address] [facility] HMO MEDICARE PART A & B Member Subscriber Plan / Payer (Ef fective 2015-Present) Name:Chanel Parekh Member ID:[id number] Relation to Subscriber:Self Name:Chanel Parekh Subscriber ID:[id number] Payer ID:[id number] Group ID:Not on file Type:Medicare Address: [facility] [address] [place] [address] [facility] PART A & B [facility] PART A & B Member Subscriber Plan / Payer (Ef fective 2015-Present) Name:Chanel Parekh Member ID:[id number] Relation to Subscriber:Self Name:Chanel Parekh Subscriber ID:[id number] Payer ID:[id number] Group ID:Not on file Type:Medicare Address: [facility] [address] [place] [address] [facility] HMO MEDICARE PART A & B Member Subscriber Plan / Payer (Ef fective 2015-Present) Name:Chanel Parekh Member ID:[id number] Relation to Subscriber:Self Name:Chanel Parekh Subscriber ID:[id number] Payer ID:[id number] Group ID:Not on file Type:Medicare Address: [facility] [address] [place] [address] Advance Directives For more information, please contact: [phone] (9AM - 5PM [facility], Monday-Monday) * Full Code (Presumed) (Latest Code Status on File) Date Activated Date Inactivated Comments 02/09/2018 11:50 PM 02/14/2018 1:55 PM Care Teams Rn Hospice Relationship Specialty Start Date End Date Caitlyn Swanson NP [address] [place] [address] PCP - General Nurse Practitioner 12/19/24 Additional Source Comments The information contained in this document represents components of the legal health record. It is not the complete legal health record.[facility]
--- OUTSIDE RECORDS SUMMARY | 2025-07-16 17:09 | XMS_ITS | Patient Health Record ---
Author Organization [facility] Address [address] [place] [address] Care Team Providers Care Level Vial Inspector Name Role Phone Hilda KYLE, Nallely Primary Care Provider Kaye martinsyaniraBETO Ling Unavailable [phone] Reason For Referral No Information Medications Medication [...] Status Risk Notes Problem Right shoulder pain (3744729695) Right shoulder pain (M25.511) Active confirmed Problem Left shoulder pain (3821197110) Left shoulder pain (M25.512) Active confirmed Problem Abnormal gait (52214118) Balance disorder (R26.89) Active confirmed Problem Right [...] Date Medicare [address] [place] [address] [id number] Lucita Young Self - patient is the insured [facility] [address] [facility] [address] [id number] Lucita Young Self - patient is the [...]
== END 2025-07-16 14:32 | disposition home or self-care (01) ==
LOC: HO.HOS 13:57
PROVIDERS: Visit Provider Physician Assistant
DX: S42.001A Fracture of unspecified part of right clavicle, initial encounter for closed fracture (principal)
CPT/HCPCS: 99024

== ENCOUNTER → 2025-07-16 13:59 | Outpatient (BNV) | payer MEDICARE, OTHER, SELFPAY | PROVIDERS: Visit Provider Radiology Diagnostic Radiology | DX: S42.001A Fracture of unspecified part of right clavicle, initial encounter for closed fracture (principal) | CPT/HCPCS: 73000 ==

== ENCOUNTER 2025-07-16 15:03 | Outpatient (REF) | payer MEDICARE, OTHER, SELFPAY ==
--- OUTSIDE RECORDS SUMMARY | 2025-05-14 10:00 | XMS_ITS ---
Author Organization [facility] Address [address] [place] [phone] Care Team Providers Care Asset Accountant Name Role Phone Hilda KYLE, Nallely Primary Care Provider Kaye BETO Borja Unavailable [phone] REASON FOR VISIT Left Knee pain/ OA [facility] Encounters Encounter Location Date Provider Diagnosis [facility] [address] [place] [phone] 05/14/2025 BETO LAM Plan Of Treatment No Information Progress Notes * Lucita PAREKHDOB:[birth year] (74 yo F)Acc No.[id number]:05/14/2025 Patient: Lucita CHANEL Provider: Hari LAM MD :1950 A ge:74 Y S ex:Female Date:05/14/2025 Address:[address] [place], [place] [phone] Pcp:Nallely Stevens NP Subjective: * Chief Complaints: * 1 . Left Knee pain/ OA [facility] * Medical History: Objective: * Vitals: Assessment: Plan: * Treatment: * * Electronic signature of TYSHAWN LAM M.D. on 07/17/2025 at 06:20 PM EST Sign off status: Pending * Provider: Hari LAM MD Date: 0 05/14/2025 Generated for Kirsten rhodes/Kodak/Janell on: 1 09/16/2024 06:20 PM EST
--- NOTE | ~2025-07-16 | XR_ITS ---
EXAMINATION: XR CLAVICLE, RIGHT CLINICAL INFORMATION: S42.009A - Fracture of unspecified part of unspecified clavicle, initial... COMPARISON: June 26, 2025. TECHNIQUE: AP views of the right clavicle. FINDINGS: Comminuted displaced fracture mid to distal clavicle without gross periosteal bone reaction or callus formation. Degenerative changes in the glenohumeral joint and the common clavicular joint. XR/XR clavicle RT IMPRESSION: No gross healing. Electronically signed by: Nirav Mendoza MD 07/16/2025 02:27 PM EST
--- OUTSIDE RECORDS SUMMARY | 2025-07-17 18:20 | XMS_ITS | Patient Health Record ---
Author Organization [facility] Address [address] [place] [address] Care Team Providers Care Yacht Builder Name Role Phone Hilda KYLE, Nallely Primary Care Provider Kaye martinsyaniraBETO Ling Unavailable [phone] Reason For Referral No Information Medications Medication [...] Status Risk Notes Problem Right shoulder pain (6212187984) Right shoulder pain (M25.511) Active confirmed Problem Left shoulder pain (8583387237) Left shoulder pain (M25.512) Active confirmed Problem Abnormal gait (85063570) Balance disorder (R26.89) Active confirmed Problem Right [...] Date Medicare [address] [place] [address] [id number] Lucita Young Self - patient is the insured [facility] [address] [facility] [address] [id number] Lucita Young Self - patient is the [...]
--- OUTSIDE RECORDS SUMMARY | 2025-07-17 18:20 | XMS_ITS | Clinical Summary ---
Author Organization [facility] Address [address] [facility] [address] [place] [address] Phone Care Team Providers Care Staple Side Laster Name Role Phone Caitlyn Swanson NP Primary Care Provider [phone] Allergies No known active allergies Medications * [...] Description 02/25/2026 10:10 AM EDT Office Visit [facility] Rheumatology [address] [place] [address] Brianne Curtis MD, MPH [address] [facility], [facility] [address] [place] [address] [email or web address] Health Maintenance Due Date Last [...] topic Medical Devices Not on file Insurance [facility] MEDICARE PART A & B [facility] & B [facility] MEDICARE PART A & B [facility] PART A & B [facility] PART A & B [facility] MEDICARE PART A & [facility] MEDIC[facility] PART [facility] & [facility] MEDIC[facility] PART A & B [facility] H[facility] MEDICARE PART A & B Advance Directives For more information, please contact: [phone] (9AM - 5PM [facility], Monday-Monday) * Full Code (Presumed) (Latest Code Status on File) Date Activated Date Inactivated Comments 02/09/2018 11:50 PM 02/14/2018 1:55 PM Care Teams Staple Side Laster Relationship Specialty Start Date End Date Caitlyn Swanson NP [address] [place] [address] PCP - General Nurse Practitioner 12/19/24 Additional Source Comments The information contained in this document represents components of the legal health record. It is not the complete legal health record.[facility]
--- OUTSIDE RECORDS SUMMARY | 2025-07-17 18:20 | XMS_ITS | Clinical Summary ---
Author Organization [address] Address [address] [place] [address] Phone Care Team Providers Care Cash Management Associate Name Role Phone Luca Thibodeaux [...] chronic (CMS/HCC V2 4) 12/23/2013 Overview (08/30/2024): [place] admission 09/2016, 05/2017, [facility] Ad[facility] 08/2017 [...] WNL APPENDECTOMY 01/2020 PROCEDURE: HISTORICAL APPENDECTOMY; COMMENT: [place] COLONOSCOPY 09/11/2020 PROCEDURE: HISTORICAL COLONOSCOPY; COMMENT: Minimal diverticulosis; 3 mm cecal polyp: Tubular adenoma. APPENDECTOMY PROCEDURE: [place] APPENDECTOMY Medical History Medical History Date Comments Irritable bowel syndrome DX:Irri table bowel syndrome; COMMENT: EGD, Colonoscopy (-)08/06/01 Lumbosacral spondylosis with out myelopathy DX:Lumbosacral spondylosis w ithout myelopathy Generalized osteoarthrosis, involving hand DX:Generalized osteoarthrosi s, involving hand Dermatophytosis of foot DX:[place] tophytosis of foot Iron deficiency anemia secon [...] DX:Major depression, recurre nt, chronic (HCC); COMMENT: [place] admission 09/2016, 05/2017, [facility] Admission 08/2017 [...] Screening 08/13/2022 Depression Screening 09/04/2024 COVID-19 Vaccine ( season) 2025 06/11/2024, 06/20/2023, 06/01/2021, Additional history [...] is recommended in 1 year. MAMMO LOCATION: [facility], [address] [place] [address], [facility], . -------- FINAL REPORT -------- Dictated By: Domitila Joshua Dictated Date: 08/09/2024 15:18 ET Assigned Physician: Domitila Joshua Reviewed and Electronically Signed By: Domitila Joshua Signed Date: 08/09/2024 15:19 ET Workstation ID: [id number] Transcribed By: Self Edit Transcribed Date: 08/09/2024 [...] is recommended in 1 year. MAMMO LOCATION: [facility], [address] [place] [address], [address], . -------- FINAL REPORT -------- Dictated By: Domitila Joshua Dictated Date: 08/09/2024 15:18 ET Assigned Physician: Domitila Joshua Reviewed and Electronically Signed By: Domitila Joshua Signed Date: 08/09/2024 15:19 ET Workstation ID: [id number] Transcribed By: Self Edit Transcribed Date: 08/09/2024 15:18 ET Caitlyn Swanson NP IMG BI PROCEDURES Final Result * Hepatitis C Screening (09/15/2022) Pathologist [facility] Hepatitis C Screening Abstracted Historical [...] risk by FRAX. us Ena Egan MD [facility] DXA PROCEDURES Final Res ult * Hm Colonoscopy (09/11/2020) Colonoscopy No interpretation , Abstracted Anatomical Region Laterality Modality Other Historical Provider HEALTH MAINTENANCE Final Result from Last 3 Months or Most Recently Relevant to Health Maintenance Insurance [facility]ICARE [facility] Care Teams Cash Management Associate Relationship Specialty Start Date End Date Luca Thibodeaux MD [address] [place] [address] PCP - General Internal Medicine 01/10/22
== END 2025-07-16 15:04 | disposition home or self-care (01) ==
LOC: HO.HOSX 15:03
PROVIDERS: Visit Provider Physician Assistant
DX: S42.001D Fracture of unspecified part of right clavicle, subsequent encounter for fracture with routine healing (principal); X58.XXXD Exposure to other specified factors, subsequent encounter
CPT/HCPCS: 73000; 99212

== ENCOUNTER 2025-08-13 14:03 | Outpatient (AMB) | payer MEDICARE, OTHER, SELFPAY ==
--- OUTSIDE RECORDS SUMMARY | 2025-05-14 10:00 | XMS_ITS ---
Author Organization [facility] Address [address] [place] [phone] Care Team Providers Care Broadcast Producer Name Role Phone Hilda KYLE, Nallely Primary Care Provider Kaye BETO Borja Unavailable [phone] REASON FOR VISIT Left Knee pain/ OA Eval for Lt [facility] Encounters Encounter Location Date Provider Diagnosis CCOHY [facility] [address] [place] [phone] 05/14/2025 BETO LAM Plan Of Treatment No Information Progress Notes * Lucita PAREKHDOB:[birth year] (74 yo F)Acc No.[id number]:05/14/2025 Patient: Lucita CHANEL Provider: Hari LAM MD :1950 A ge:74 Y S ex:Female Date:05/14/2025 Address:[address] [place], [place] [phone] Pcp:Nallely Stevens NP Subjective: * Chief Complaints: * 1 . Left Knee pain/ OA [facility]. * Medical History: Objective: * Vitals: Assessment: Plan: * Treatment: * * Electronic signature of TYSHAWN LAM M.D. on 08/13/2025 at 09:53 PM EST Sign off status: Pending * Provider: Hari LAM MD Date: 0 05/14/2025 Generated for Kirsten rhodes/Kodak/Janell on: 1 10/14/2024 09:53 PM EST
--- NOTE | 2025-08-13 14:13 | MHC.OFFVIS ---
Vital Signs 08/13/25 14:14 Height 5 ft 6 in Weight 162 lb BMI 26.1 Intake Visit Reasons: OV-Right Clavicle Fracture - DOI 05/22/25 Intake Note: Lucita is a 74 year old right hand dominant female who presents today for a follow up of her right clavicle fracture, DOI: 05/22/25. At her last visit an order for physical therapy was placed & refill of tramadol was sent. She is starting physical therapy with [facility] on 08/26/25. Patient reports ongoing limited ROM. States that she continues to perform at home exercises. States her arthritis is now affecting her right shoulder, stating history of PRP injections with Dr. Mix that are on hold due to her injury. . Allergies No Known Allergies (No Known Allergies*) Allergy (Verified 08/13/25 14:22) Medication List - Last Reconciled 08/13/25 by Glory Ramey PA-C acetaminophen 1,000 mg PO TID apixaban (Eliquis) 5 mg PO BID atorvastatin 20 mg PO DAILY cholecalciferol (vitamin D3) 25 mcg PO DAILY clonazepam mg PO dextroamphetamine-amphetamine 10 mg ER 1 cap PO QAM gabapentin 100 mg PO BEDTIME hydroxyzine pamoate 25 mg PO BEDTIME melatonin 9 mg PO BEDTIME metoprolol succinate ER 50 mg PO DAILY [Neoprene wrist sleeve As directed] pantoprazole 40 mg PO DAILY@0630 prazosin 5 mg PO BEDTIME solifenacin 10 mg PO DAILY tramadol 50 mg PO BID PRN 14 days venlafaxine ER 150 mg PO DAILY walker Rollator walker with seat and breaks walker Folding Front wheeled walker HPI Comments Details: History of Present Illness The patient is a 74 year old female presenting for follow-up of a clavicle fracture that occurred in May. She reports limited range of motion in the affected shoulder, with flexion to 90 degrees and inability to rotate her arm or supinate her forearm. She has a history of significant shoulder arthritis, for which she has received PRP injections from Dr. Mix. For pain management, the patient was taking tramadol once daily in the morning, which she reports reduced her overall arthritic pain by about 50%. After running out of the medication, she experienced a significant increase in pain, particularly in her wrists, which are also affected by arthritis, tingling, and numbness. Past medical history is notable for a RT TKA in November 2021 and long-term use of Eliquis. The patient reports a lifelong intolerance to aspirin due to stomach upset. She reports exercising every day. Social History - Exercise: The patient exercises every single day and is proactive about moving around. - Functional Status: The patient's ability to function is limited by pain. - Shoulder motion limitations prevent her from performing activities of daily living such as doing the back of her hair. Allergies - Aspirin: Causes stomach upset; the patient has had a reaction to it since childhood. Results - Imaging: - Shoulder X-ray: Today's films show significant arthritis. - They also demonstrate a clavicle fracture with a third bony fragment in the middle. - There are signs of healing with new bone formation, and the fracture appears stable. [facility] Medical History Gait apraxia Arthritis of left knee Gait disturbance HTN (hypertension) Osteoarthritis IBS (irritable bowel syndrome) Major depression, recurrent, chronic Vitamin D deficiency Abnormal gait Pure hypercholesterolemia Severe major depression without psychotic features Hx of basal cell carcinoma Osteopenia Paroxysmal atrial fibrillation Surgical History History of esophagogastroduodenoscopy (EGD) Hx of colonoscopy Hx of breast biopsy Hx of hysterectomy Hx of appendectomy Family History Father No problems noted. Mother No problems noted. Social History Are you a primary personal care assistant to a significant other at home: No Do you presently have visiting nurse or other home services: Yes (NET UI DEVELOPER 4 hours per week) Comment: aware of trip hazard Patient Tobacco Use Status: Former Tobacco user Tobacco use type: Cigarette Advance Directives Date on File: 11/11/21 service: No Current occupational status: retired Current occupation: rt handed Review of Systems Narrative Review of Systems - Musculoskeletal: Reports shoulder pain with movement, particularly on rotation. - Reports limited shoulder range of motion to approximately 90 degrees. - Reports pain in wrists due to arthritis. - Reports abnormal gait. - Neurological: Reports tingling and numbness in the wrists. - Gastrointestinal: Reports stomach upset with aspirin. As per HPI Physical Exam Exam Exam: Physical Exam - General: Patient appears hesitant on physical exam of the arm due to pain. - Musculoskeletal: - Inspection: The clavicle region appears rounded and less prominent. - Shoulder: Passive range of motion is limited by pain. - Active flexion is limited to approximately 90 degrees. - Rotation and forearm supination are limited. Vital Signs: BMI result Body Mass Index 26.1 Results Reviewed Results Reviewed: Xrays were obtained in the office today and personally reviewed by me of the right clavicle show stable distal and proximal fracture with displacement Assessment & Plan Assessment & Plan (1) Right clavicle fracture: Code(s): S42.001A - Fracture of unspecified part of right clavicle, initial encounter for closed fracture Category: Medical Qualifiers: Encounter type: subsequent encounter Fracture type: closed Fracture alignment: displaced Fracture healing: with routine healing Plan Patient was informed and verbally consented to the use of an ambient scribe for clinic note documentation during this visit. 1. Fracture of unspecified part of right clavicle, subsequent encounter for fracture with routine healing S42.001D The patient's comminuted clavicle fracture is showing signs of healing and stability on recent X-rays. Will continue with non-operative management. The patient is scheduled to begin physical therapy on August 26. Follow-up is planned in 6-8 weeks to assess progress after therapy. The patient's chronic pain is attributed to significant shoulder arthritis as well as arthritis in other joints. A prescription for tramadol will be renewed for short-term use to manage pain during the fracture healing period. A prescription for Celebrex was also provided as a safer, long-term anti-inflammatory alternative for her arthritis, with education that it is less likely to cause stomach upset and must be taken daily for about two weeks to gauge effectiveness. The patient was advised that long-term narcotic management should be handled by her PCP or automotive painter helper. Orders: Orders XR clavicle RT Today S42.009A - Fracture of unspecified part of unspecified clavicle, initial encounter for closed fracture Coding Level of Care Code Global (01103) Diagnoses Right clavicle fracture S42.001A Encounter type: subsequent encounter Fracture type: closed Fracture alignment: displaced Fracture healing: with routine healing
[2025-08-13 14:14] VITALS: BMI 26.1
--- OUTSIDE RECORDS SUMMARY | 2025-08-13 21:54 | XMS_ITS | Clinical Summary ---
Author Organization [address] Address [address] [place] [address] Phone Care Team Providers Care Class A Regional Truck Driver Name Role Phone Luca Thibodeaux MD Primary [...] Major depression, recurrent, chronic 12/23/2013 Overview (08/30/2024): [place] admission 09/2016, 05/2017, [facility] Admission 08/2017 [...] 65yo and older 08/22/2022,07/06/2021,05/11/2018 Influenza, Unspecified 08/19/2021 [employer] SARS-CoV-2 COVID-19, mRNA, LNP-S, preservative free 05/30/2021 [...] lt breast UPPER GASTROINTESTINAL ENDOSCOPY 2013 PROCEDURE: OR UPPER GI ENDOSCOPY PERFORMED; COMMENT: normal UPPER GASTROINTESTINAL ENDOSCOPY 08/2001 PROCEDURE: OR UPPER GI ENDOSCOPY PERFORMED; COMMENT: WNL APPENDECTOMY 01/2020 PROCEDURE: HISTORICAL APPENDECTOMY; COMMENT: [place] COLONOSCOPY 09/11/2020 PROCEDURE: HISTORICAL COLONOSCOPY; COMMENT: Minimal diverticulosis; 3 mm cecal polyp: Tubular adenoma. APPENDECTOMY PROCEDURE: [place] APPENDECTOMY Medical History Medical History Date Comments Irritable bowel syndrome DX:Irri table bowel syndrome; COMMENT: EGD, Colonoscopy (-)08/06/01 Lumbosacral spondylosis with out myelopathy DX:Lumbosacral spondylosis w ithout myelopathy Generalized osteoarthrosis, involving hand DX:Generalized osteoarthrosi s, involving hand Dermatophytosis of foot DX:[place] tophytosis of foot Iron deficiency anemia secon [...] DX:Major depression, recurre nt, chronic (HCC); COMMENT: [place] admission 09/2016, 05/2017, [facility] Admission 08/2017 [...] is recommended in 1 year. MAMMO LOCATION: [facility], [address] [place] [address], [address], . -------- FINAL REPORT -------- Dictated By: Domitila Joshua Dictated Date: 08/09/2024 15:18 ET Assigned Physician: Domitila Joshua Reviewed and Electronically Signed By: Domitila Joshua Signed Date: 08/09/2024 15:19 ET Workstation ID: [id number] Transcribed By: Self Edit Transcribed Date: 08/09/2024 [...] is recommended in 1 year. MAMMO LOCATION: [facility], [address] [place] [address], [address], . -------- FINAL REPORT -------- Dictated By: Domitila Joshua Dictated Date: 08/09/2024 15:18 ET Assigned Physician: Domitila Joshua Reviewed and Electronically Signed By: Domitila Joshua Signed Date: 08/09/2024 15:19 ET Workstation ID: [id number] Transcribed By: Self Edit Transcribed Date: 08/09/2024 [...] (World Health Organization Fracture Risk Assessment) [facility] Department of Internal Medicine recommends using [...] (World Health Organization Fracture Risk Assessment) [facility] Department of Internal Medicine recommendsusing National [...] fracture risk by FRAX. Ena Egan MD [facility] DXA PROCEDURES Final Res ult * Colonoscopy (09/11/2020) [facility] Colonoscopy No interpretation , Abstracted Anatomical Region Laterality Modality Other Historical Provider HEALTH MAINTENANCE Final Result from Last 3 Months or Most Recently Relevant to Health Maintenance Insurance MEDICARE [facility] Care Teams Class A Regional Truck Driver Relationship Specialty Start Date End Date Luca Thibodeaux MD [address] [place] [address] PCP - General Internal Medicine 01/10/22
== END 2025-08-13 14:41 | disposition home or self-care (01) ==
LOC: HO.HOS 14:04
PROVIDERS: PCP Family Medicine; Visit Provider Physician Assistant
DX: S42.001A Fracture of unspecified part of right clavicle, initial encounter for closed fracture (principal)
CPT/HCPCS: 99213

== ENCOUNTER → 2025-08-13 14:06 | Outpatient (BNV) | payer MEDICARE, OTHER, SELFPAY | PROVIDERS: Visit Provider Radiology Diagnostic Ultrasound | DX: S42.001D Fracture of unspecified part of right clavicle, subsequent encounter for fracture with routine healing (principal) | CPT/HCPCS: 73000 ==

== ENCOUNTER 2025-08-13 15:06 | Outpatient (REF) | payer MEDICARE, OTHER, SELFPAY ==
--- OUTSIDE RECORDS SUMMARY | 2025-05-14 10:00 | XMS_ITS ---
Author Organization [facility] Address [address] [place] [phone] Care Team Providers Care Recreation Engineer Name Role Phone Hilda KYLE, Nallely Primary Care Provider Kaye BETO Borja Unavailable [phone] REASON FOR VISIT Left Knee pain/ [facility] Encounters Encounter Location Date Provider Diagnosis [facility] [address] [place] [phone] 05/14/2025 BETO LAM Plan Of Treatment No Information Progress Notes * Lucita PAREKHDOB:[birth year] (74 yo F)Acc No.[id number]:05/14/2025 Patient: Lucita CHANEL Provider: Hari LAM MD :1950 A ge:74 Y S ex:Female Date:05/14/2025 Address:[address] [place], [place] [phone] Pcp:Nallely Stevens NP Subjective: * Chief Complaints: * 1 . Left Knee pain/ [facility] * Medical History: Objective: * Vitals: Assessment: Plan: * Treatment: * * Electronic signature of TYSHAWN LAM M.D. on 08/14/2025 at 11:05 AM EST Sign off status: Pending * Provider: Hari LAM MD Date: 0 05/14/2025 Generated for Kirsten rhodes/Kodak/Janell on: 1 10/15/2024 11:05 AM EST
--- NOTE | ~2025-08-13 | XR_ITS ---
EXAMINATION: XR CLAVICLE, RIGHT CLINICAL INFORMATION: S42.009A - Fracture of unspecified part of unspecified clavicle, initial... COMPARISON: X-ray 07/16/2025 TECHNIQUE: Two views of the right clavicle. FINDINGS: Redemonstrated comminuted clavicular fracture. Fracture of the middle third of the fracture with inferior displacement of the distal bone; fracture of the lateral to the clavicle with inferior displacement of the distal bone, similar to previous. Mild callus formation. No new acute fractures seen. Diffuse bone demineralization. Glenohumeral joint arthritis redemonstrated. XR/XR clavicle RT IMPRESSION: Comminuted displaced clavicular fracture, unchanged positioning. Mild callus formation. Electronically signed by: Gerald Beauchamp MD 08/14/2025 11:08 AM HAKAN
--- OUTSIDE RECORDS SUMMARY | 2025-08-14 22:39 | XMS_ITS | Patient Health Record ---
Author Organization [facility] Address [address] [place] [address] Care Team Providers Care Hand Spring Repairer Helper Name Role Phone Hilda KYLE, Nallely Primary Care Provider Kaye martinsyaniraBETO Ling Unavailable [phone] Reason For Referral No Information Medications Medication [...] Status Risk Notes Problem Right shoulder pain ([id number]) Right shoulder pain (M25.511) Active confirmed Problem Left shoulder pain (8156525271) Left shoulder pain (M25.512) Active confirmed Problem Abnormal gait (02737699) Balance disorder (R26.89) Active confirmed Problem Right [...] Date Medicare [address] [place] [address] [id number] Lucita Young Self - patient is the insured [facility] [address] [facility] [address] [id number] Lucita Young Self - patient is the [...]
--- OUTSIDE RECORDS SUMMARY | 2025-08-14 22:39 | XMS_ITS | Clinical Summary ---
Author Organization [address] Address [address] [place] [phone] Phone Care Team Providers Care Funeral Driver Name Role Phone Luca Thibodeaux MD [...] Major depression, recurrent, chronic 12/23/2013 Overview (08/30/2024): [place] admission 09/2016, 05/2017, [facility] Admission 08/2017 [...] 65yo and older 08/22/2022,07/06/2021,05/11/2018 Influenza, Unspecified 08/19/2021 [employer] SARS-CoV-2 COVID-19, mRNA, LNP-S, preservative free 05/30/2021 [...] lt breast UPPER GASTROINTESTINAL ENDOSCOPY 2013 PROCEDURE: [place] UPPER GI ENDOSCOPY PERFORMED; COMMENT: normal UPPER GASTROINTESTINAL ENDOSCOPY 08/2001 PROCEDURE: [place] UPPER GI ENDOSCOPY PERFORMED; COMMENT: WNL APPENDECTOMY 01/2020 PROCEDURE: HISTORICAL APPENDECTOMY; COMMENT: [place] COLONOSCOPY 09/11/2020 PROCEDURE: HISTORICAL COLONOSCOPY; COMMENT: Minimal diverticulosis; 3 mm cecal polyp: Tubular adenoma. APPENDECTOMY PROCEDURE: [place] APPENDECTOMY Medical History Medical History Date Comments Irritable bowel syndrome DX:Irri table bowel syndrome; COMMENT: EGD, Colonoscopy (-)08/06/01 Lumbosacral spondylosis with out myelopathy DX:Lumbosacral spondylosis w ithout myelopathy Generalized osteoarthrosis, involving hand DX:Generalized osteoarthrosi s, involving hand Dermatophytosis of foot DX:[place] tophytosis of foot Iron deficiency anemia secon [...] DX:Major depression, recurre nt, chronic (HCC); COMMENT: [place] admission 09/2016, 05/2017, [facility]mission 08/2017 [...] Health Maintenance Due Date Last Done Comments Drug Screen 1950 Non-Opioid Controlled Substance Agreement 1950 Falls Risk Assessment 08/13/2022 Medicare Annual Wellness [...] is recommended in 1 year. MAMMO LOCATION: [facility], [address] [place] [address], [address], . -------- FINAL REPORT -------- Dictated By: Domitila Joshua Dictated Date: 08/09/2024 15:18 ET Assigned Physician: Domitila Joshua Reviewed and Electronically Signed By: Domitila Joshua Signed Date: 08/09/2024 15:19 ET Workstation ID: [id number] Transcribed By: Self Edit Transcribed Date: 08/09/2024 [...] is recommended in 1 year. MAMMO LOCATION: [facility], [address] [place] [address], [address], . -------- FINAL REPORT -------- Dictated By: Domitila Joshua Dictated Date: 08/09/2024 15:18 ET Assigned Physician: Domitila Joshua Reviewed and Electronically Signed By: Domitila Joshua Signed Date: 08/09/2024 15:19 ET Workstation ID: [id number] Transcribed By: Self Edit Transcribed Date: 08/09/2024 [...] * DXA BONE DENSITY STUDY 1+ MARK TELLO SKEL (06/02/2021 4:10 PM EDT) Anatomical Region [...] (World Health Organization Fracture Risk Assessment) [facility] Department of Internal Medicine recommends using [...] (World Health Organization Fracture Risk Assessment) [facility] Department of Internal Medicine recommendsusing National [...] risk by FRAX. us Ena Egan MD [facility] DXA PROCEDURES Final Res ult * Colonoscopy (09/11/2020) Colonoscopy No interpretation , Abstracted Anatomical Region Laterality Modality Other us Historical Provider HEALTH MAINTENANCE Final Result from Last 3 Months or Most Recently Relevant to Health Maintenance Insurance MEDICARE [facility] Care Teams Funeral Driver Relationship Specialty Start Date End Date Luca Thibodeaux MD [address] [place] [address] PCP - General Internal Medicine 01/10/22
--- OUTSIDE RECORDS SUMMARY | 2025-08-14 22:39 | XMS_ITS | Clinical Summary ---
Author Organization [facility] Address [address] [facility] [address] [place] [address] Phone Care Team Providers Care Weight Trainer Name Role Phone Caitlyn Swanson NP Primary [...] Description 02/25/2026 10:10 AM EDT Office Visit [facility] Rheumatology [address] [place] [address] Brianne Curtis MD, MPH [address] [facility], [facility] [address] [place] [address] [email or web address] Health Maintenance Due Date Last Done Comments [...] topic Medical Devices Not on file Insurance [facility] HMO MEDICARE PART A & B [facility] MEDICARE PART A & B [facility] MEDICARE PART A & B O MEDICARE PART A & B O MEDICARE PART A & B [facility] MEDICARE PART A & B [facility] Member Subscriber Plan / Payer (Ef fective 2017-Present) Name:BobzahiraChanel ozuna Relation to Subscriber:Self Name:CHANEL PAREKH Payer ID:Not on file Type:HMO Address: [place] [id number] MEDICARE PART A & B [facility] MEDICARE PART A & B [facility] HMO MEDICARE PART A & B Advance Directives For more information, please contact: [phone] (9AM - 5PM [facility], Monday-Monday) * Full Code (Presumed) (Latest Code Status on File) Date Activated Date Inactivated Comments 02/09/2018 11:50 PM 02/14/2018 1:55 PM Care Teams Weight Trainer Relationship Specialty Start Date End Date Caitlyn Swanson NP [address] [place] [address] PCP - General Nurse Practitioner 12/19/24 Additional Source Comments The information contained in this document represents components of the legal health record. It is not the complete legal health record.[facility]
== END 2025-08-13 15:07 ==
LOC: HO.HOSX 15:06
PROVIDERS: Visit Provider Physician Assistant
DX: S42.001D Fracture of unspecified part of right clavicle, subsequent encounter for fracture with routine healing (principal)
CPT/HCPCS: 73000